=== PATIENT | female | born 1940 | race African-American/Black ===

== ENCOUNTER 2016-08-23 15:05 | Inpatient (IN) | payer MEDICARE, MEDICAID ==
[~2016-08-23] VITALS: Ht 162.6 cm; Wt 63.5 kg
[~2016-08-23 15:05] MED LIST: ACETAMINOPHEN500 M5 PO; DULCOLAX STOOL100 M1 PO; FENTANYL1 EAC4 TDERMAL; FENTANYL1 EACH TDERMAL; LASIX20 M1 ORAL; LEVOFLOXACIN500 MG ORAL; LISINOPRIL20 MG ORAL; METOPROLOL SUCC25 MG ORAL; NEURONTIN100 MG ORAL; OMEPRAZOLE20 M3 ORAL; PLAVIX75 MG ORAL; PROAIR HFA8.5 GM INH; PROCARDIA10 MG ORAL; PROMETHAZINE V240 ML ORAL; PROTONIX20 MG ORAL; PROTONIX40 MG ORAL; SIMVASTATIN20 MG ORAL; TRAMADOL HCL50 MG ORAL
[2016-08-23 16:00] VITALS: BP 148/68
[2016-08-23 16:48] LABS: BASOPHILS % (AUTO) 1.4 % (0.0-2.0); EOSINOPHILS % (AUTO) 2.3 % (0.0-3.0); LYMPHOCYTES % (AUTO) 25.6 % (20.0-45.0); MEAN CORPUSCULAR HEMOGLOBIN 31.6 PG (27.0-31.0); MEAN CORPUSCULAR HGB CONC 30.9 G/DL (32.0-36.0); MEAN CORPUSCULAR VOLUME 103 FL (80-99); MEAN PLATELET VOLUME 5.1 FL (6.5-10.1); MONOCYTES % (AUTO) 4.8 % (1.0-10.0); NEUTROPHILS % (AUTO) 65.9 % (45.0-75.0); PLATELET COUNT 357 K/UL (150-450); RED BLOOD COUNT 3.92 M/UL (4.20-5.40); RED CELL DISTRIBUTION WIDTH 13.3 % (11.6-14.8)
[2016-08-23 17:05] LABS: TROPONIN I < 0.30 ng/mL (<=0.30)
[2016-08-23 17:09] LABS: ALANINE AMINOTRANSFERASE 20 U/L (3-33); ALBUMIN/GLOBULIN RATIO 1.1 (1.0-2.7); ANION GAP 13 (5-15); ASPARTATE AMINO TRANSFERASE 25 U/L (5-40); CALCIUM 9.5 mg/dL (8.6-10.2); CARBON DIOXIDE 30 mEQ/L (20-30); CHLORIDE 100 mEQ/L (98-107); CREATININE 0.7 mg/dL (0.5-0.9); HEMOLYSIS 15; POTASSIUM 3.7 mEQ/L (3.4-4.9); SODIUM 143 mEQ/L (135-145); TOTAL PROTEIN 7.8 g/dL (6.6-8.7)
[2016-08-23 17:44] VITALS: BP 138/69
[2016-08-23 17:45] LABS: APPEARANCE,URINE SLIGHTLY CLOUDY; KETONES,URINE NEGATIVE (NEGATIVE); PH,URINE 6.5 (4.5-8.0); PROTEIN,URINE 1+ (NEGATIVE)
[2016-08-23 17:46] LABS: LEUKOCYTE ESTERASE ,URINE NEGATIVE (NEGATIVE); NITRITE,URINE NEGATIVE (NEGATIVE); UROBILINOGEN,URINE NORMAL MG/DL (0.0-1.0)
--- NOTE | 2016-08-23 17:47 | Emergency Room Report ---
History of Present Illness General Chief Complaint: Dizziness Source: Patient, Medical Record Present Illness HPI The patient is a 76-year-old female who presented after increased dizziness and generalized weakness. Patient had prior history of CVA in the past as well as prior syncopal episode. Patient's primary care physician is Dr. Emmanuel Finley. The patient had recently left her [facility] and is having difficulty caring for herself. Patient had been feeling generalized weakness. She had been feeling like she might pass out. Allergies: Coded Allergies: No Known Allergies (Unverified , 06/05/14) Patient History Past Medical History: see triage record Reviewed Nursing Documentation: PMH: Agreed, PSxH: Agreed Nursing Documentation-PMH Hx Cardiac Problems: Yes - high cholesterol; NM Hx Hypertension: Yes Hx COPD: Yes Hx Cancer: No Hx Gastrointestinal Problems: Yes - GERD Hx Neurological Problems: Yes Hx Cerebrovascular Accident: Yes - left side Review of Systems All Other Systems: negative except mentioned in HPI Physical Exam Vital Signs Date Time Temp Pulse Resp B/P Pulse Ox O2 Delivery O2 Flow Rate FiO2 08/23/16 15:19 98.2 91 16 149/80 97 Room Air General Appearance: alert, GCS 15, non-toxic, mild distress ENT: other - left tm foreign body Neck: full range of motion, supple Respiratory: chest non-tender, lungs clear, normal breath sounds, no rhonchi Cardiovascular #1: normal peripheral pulses, regular rate, rhythm, no edema Gastrointestinal: normal bowel sounds, non tender, soft, no mass Musculoskeletal: back normal, digits/nails normal Neurologic: normal inspection, alert, oriented x3, responsive, nurse staff industrial III-XII nml as tested, motor weakness - lower extremities bilateral weakn Skin: normal inspection, normal color, no rash Medical Decision Making Diagnostic Impression: Primary Impression: Episode of generalized weakness Additional Impression: Failure to thrive ER Course Patient presented for generalized weakness. Differential diagnosis included was not limited to anemia, urinary tract infection, electrolyte abnormality, hypothyroidism, myocardial infarction, myasthenia gravis, dehydration, among others. Because of complexity of patient's case laboratory testing and imaging studies were ordered. I EKG interpreted by me showed normal sinus rhythm with a rate of 78 with inferior T wave inversion.Laboratory studies showed normal white blood count. The patient noted be not anemic. Rhythm strip interpreted by me showed normal sinus rhythm with a rate in the 80s without PVCs or ectopy.The patient was discussed with Dr. Arroyo for Dr. Finley who is patients primary care physician. Labs Test 08/23/16 16:30 08/23/16 17:14 White Blood Count 10.0 K/UL (4.8-10.8) Red Blood Count 3.92 M/UL (4.20-5.40) Hemoglobin 12.4 G/DL (12.0-16.0) Hematocrit 40.2 % (37.0-47.0) Mean Corpuscular Volume 103 FL (80-99) Mean Corpuscular Hemoglobin 31.6 PG (27.0-31.0) Mean Corpuscular Hemoglobin Concent 30.9 G/DL (32.0-36.0) Red Cell Distribution Width 13.3 % (11.6-14.8) Platelet Count 357 K/UL (150-450) Mean Platelet Volume 5.1 FL (6.5-10.1) Neutrophils (%) (Auto) 65.9 % (45.0-75.0) Lymphocytes (%) (Auto) 25.6 % (20.0-45.0) Monocytes (%) (Auto) 4.8 % (1.0-10.0) Eosinophils (%) (Auto) 2.3 % (0.0-3.0) Basophils (%) (Auto) 1.4 % (0.0-2.0) Sodium Level 143 mEQ/L (135-145) Potassium Level 3.7 mEQ/L (3.4-4.9) Chloride Level 100 mEQ/L (98-107) Carbon Dioxide Level 30 mEQ/L (20-30) Anion Gap 13 (5-15) Blood Urea Nitrogen 17 mg/dL (7-23) Creatinine 0.7 mg/dL (0.5-0.9) Estimat Glomerular Filtration Rate mL/min (>60) Glucose Level 112 mg/dL (74-106) Calcium Level 9.5 mg/dL (8.6-10.2) Total Bilirubin < 0.2 mg/dL (0.0-1.2) Aspartate Amino Transf (AST/SGOT) 25 U/L (5-40) Alanine Aminotransferase (ALT/SGPT) 20 U/L (3-33) Alkaline Phosphatase 142 U/L (35-104) Troponin I < 0.30 ng/mL (<=0.30) Total Protein 7.8 g/dL (6.6-8.7) Albumin 4.2 g/dL (3.5-5.2) Globulin 3.6 g/dL Albumin/Globulin Ratio 1.1 (1.0-2.7) EKG Diagnostic Results Rate: normal Rhythm: NSR ST Segments: no acute changes Chest X-Ray Diagnostic Results EP Interpretation: Yes Findings: no consolidation, no effusion, no pneumothorax, no acute cardiopulmonary disease Number of Views: 1 Last Vital Signs Date Time Temp Pulse Resp B/P Pulse Ox O2 Delivery O2 Flow Rate FiO2 08/23/16 16:00 98.1 84 25 148/68 98 Room Air Disposition: ADMITTED INPATIENT Condition: Serious Referrals: EMMANUEL FINLEY (PCP) Santy Sánchez Aug 23, 2016 17:47
[2016-08-23 17:58] LABS: BACTERIA,URINE MODERATE /HPF; MUCUS,URINE MODERATE /LPF (NONE/OCC); SQUAMOUS EPITHELIAL CELL,UR MANY /LPF (NONE/OCC); WBC,URINE 0-2 /HPF (0 - 2)
[2016-08-23 20:13] VITALS: BP 143/71
[2016-08-23] MEDS ORDERED: Acetaminophen 500mg (ES) tab ORAL ONE (21:45)
[2016-08-23 23:01] VITALS: BP 138/74
[2016-08-24] VITALS (7 sets, daily range): BP systolic 121–154; BP diastolic 64–86
[2016-08-24] MEDS: Docusate 100mg cap ORAL SCH ×2 (08:24→17:57)
[2016-08-24] MEDS: Heparin 5000 units/ml inj SUBQ SCH ×2 (08:25→20:39)
--- NOTE | 2016-08-24 09:58 | Diagnostic Imaging Report ---
Indication: SOB Technique: One view of the chest Comparison: 04/29/2016 Findings: No acute infiltrates, effusions, or congestion. Tortuous calcified aorta. Normal heart size. Upper mediastinum unremarkable. There are severe degenerative changes of both shoulders again noted. No significant interim change Impression: No acute process.
[2016-08-24] MEDS: Acetaminophen 500mg (ES) tab ORAL PRN ×2 (13:11→20:35)
--- NOTE | 2016-08-24 19:36 | History & Physical ---
History and Physical History & Physicial Brief H&P: Impression: 1) Failure to thrive 2) DAMON post prandial;, R/O sinusitis, R/o post prandial hypoglycemia 3) COPD 4) Previous CVA Plan: Will admit Will get CT of sinuses Post p-randial accucheck Social work consult for NH placement PARTH BLAIR Aug 24, 2016 19:36
[2016-08-25] VITALS: BP 139/74
[2016-08-25] MEDS: Acetaminophen 500mg (ES) tab ORAL PRN ×2 (02:39→16:32)
[2016-08-25 04:00] VITALS: BP 135/74
[2016-08-25 08:20] VITALS: BP 125/80
[2016-08-25] MEDS: Docusate 100mg cap ORAL SCH ×2 (08:41→17:21)
[2016-08-25] MEDS: Heparin 5000 units/ml inj SUBQ SCH ×2 (08:42→20:27)
--- NOTE | 2016-08-25 10:25 | Diagnostic Imaging Report ---
Indications: PAIN Technique: Spiral images obtained through the maxillofacial sinuses. No IV contrast utilized. Multiplanar reconstructions were generated.Total dose length product 554 mGycm. CTDIvol(s) 28mGy Comparison: None Findings: There is near-complete opacification of the right sphenoid sinus. The left sphenoid sinus is clear. The maxillary, ethmoid, and frontal sinuses are clear. The maxillary ostia are patent. The nasal septum is midline. The bones are unremarkable. The patient is edentulous. A very sclerotic opacity within the right maxillary alveolar ridge probably represents the remnants of a tooth. No acute fractures. The orbits are unremarkable. The included intracranial structures are unremarkable. The retro-facial soft tissues are unremarkable. Impression: Right sphenoid sinus disease No other significant sinus disease demonstrated Patent maxillary ostia The CT scanner at [facility] is accredited by the [employer] and the scans are performed using protocols designed to limit radiation exposure to as low as reasonably achievable to attain images of sufficient resolution adequate for diagnostic evaluation.
[2016-08-25 11:19] VITALS: BP 142/83
[2016-08-25 16:00] VITALS: BP 142/70
[2016-08-25 20:00] VITALS: BP 126/72
--- NOTE | 2016-08-25 20:22 | Cardiology Report ---
APPROVED REPORT EKG Measurement Heart [id number] Normal sinus rhythm Normal ECG
--- NOTE | 2016-08-25 21:42 | General Progress Note ---
Assessment/Plan Assessment/Plan 1) R sphenoid sinusitis probably chronic 2) Failure to thrive,R/O PMR 3) Euvolemic Plan: Will start her on Flonase Check ESR PT +OT DC planning Subjective Allergies: Coded Allergies: No Known Allergies (Unverified , 06/05/14) Subjective She is found to have R sphenoid sinus opacification, no c/p or sob, feels better Objective Last 24 Hour Vital Signs Date Time Temp Pulse Resp B/P Pulse Ox O2 Delivery O2 Flow Rate FiO2 08/25/16 20:00 98.2 82 18 126/72 96 Room Air 08/25/16 16:00 98.1 80 16 142/70 99 Room Air 08/25/16 11:19 98.1 84 16 142/83 95 Room Air 08/25/16 08:20 97.9 79 16 125/80 95 Room Air 08/25/16 04:00 97.7 74 18 135/74 97 Room Air 08/25/16 00:00 98.8 83 18 139/74 97 Room Air Intake and Output 08/24/16 08/25/16 19:00 07:00 Intake Total 450 ml 480 ml Balance 450 ml 480 ml Intake Oral 450 ml 480 ml # Voids 3 3 Height (Feet): 5 Height (Inches): 4.00 Weight (Pounds): 140 General Appearance: WD/WN, no apparent distress, alert EENT: PERRL/EOMI Neck: non-tender, normal alignment, supple Cardiovascular: normal rate, regular rhythm Respiratory/Chest: lungs clear, normal breath sounds Abdomen: non tender, soft Extremities: normal range of motion Neurologic: office coordinator II-XII grossly normal, no motor/sensory deficits PARTH BLAIR Aug 25, 2016 21:42
[2016-08-26] VITALS: BP 122/63
[2016-08-26] MEDS: Acetaminophen 500mg (ES) tab ORAL PRN ×3 (00:29→17:35)
[2016-08-26 04:00] VITALS: BP 137/78
[2016-08-26 07:54] VITALS: BP 140/83
[2016-08-26] MEDS: Flonase Nasal Inhaler 16gm NASAL SCH ×2 (09:30→17:34)
[2016-08-26] MEDS: Docusate 100mg cap ORAL SCH ×2 (09:30→17:34)
[2016-08-26] MEDS: Heparin 5000 units/ml inj SUBQ SCH ×2 (09:35→22:08)
[2016-08-26 11:28] VITALS: BP 143/86
[2016-08-26 16:00] VITALS: BP 133/58
[2016-08-26 20:00] VITALS: BP_SYST 131
--- NOTE | 2016-08-26 23:34 | General Progress Note ---
Assessment/Plan Assessment/Plan 1) R sphenoid sinusitis probably chronic 2) Failure to thrive,R/O PMR 3) Euvolemic Plan: Continue her on Flonase DC to SNF in AM Subjective Allergies: Coded Allergies: No Known Allergies (Unverified , 06/05/14) Subjective She is sleeping comfortably, no distress Objective Last 24 Hour Vital Signs Date Time Temp Pulse Resp B/P Pulse Ox O2 Delivery O2 Flow Rate FiO2 08/26/16 20:00 98.9 74 19 131/ 94 Room Air 08/26/16 16:00 97.7 87 18 133/58 95 Room Air 08/26/16 11:28 98.0 83 20 143/86 96 Room Air 08/26/16 07:54 98.2 78 20 140/83 95 Room Air 08/26/16 04:00 97.9 83 18 137/78 98 Room Air 08/26/16 01:28 98.2 08/26/16 00:00 98.1 90 18 122/63 97 Room Air Intake and Output 08/25/16 08/26/16 19:00 07:00 Intake Total 900 ml 460 ml Output Total 100 ml 200 ml Balance 800 ml 260 ml Intake Oral 900 ml 460 ml Output Urine Total 100 ml 200 ml # Voids 1 1 # Bowel Movements 1 Laboratory Tests 08/26/16 06:15: Erythrocyte Sedimentation Rate 54H Height (Feet): 5 Height (Inches): 4.00 Weight (Pounds): 140 General Appearance: WD/WN, no apparent distress EENT: PERRL/EOMI Neck: non-tender, normal alignment Cardiovascular: regular rhythm Respiratory/Chest: lungs clear Abdomen: non tender, soft Extremities: normal range of motion Edema: trace edema Neurologic: administrative liaison II-XII grossly normal PARTH BLAIR Aug 26, 2016 23:34
[2016-08-27] VITALS: BP 140/88
[2016-08-27] MEDS: Acetaminophen 500mg (ES) tab ORAL PRN ×2 (00:39→08:21)
[2016-08-27 03:50] VITALS: BP 148/78
[2016-08-27] MEDS: Docusate 100mg cap ORAL SCH (08:10)
[2016-08-27] MEDS: Heparin 5000 units/ml inj SUBQ SCH (08:12)
[2016-08-27] MEDS: Flonase Nasal Inhaler 16gm NASAL SCH (08:21)
[2016-08-27 08:26] VITALS: BP 152/76
[2016-08-27] MEDS ORDERED: ATORVASTATIN CA10 MG ORAL (10:03)
[2016-08-27] MEDS ORDERED: FLUTICASONE PRO16 G1 NASAL (10:03)
[2016-08-27 12:05] VITALS: BP 130/69
[2016-08-27] MEDS ORDERED: Tubing IV Secondary IV ONE (13:39)
--- NOTE | 2016-08-27 14:35 | Discharge Summary ---
Discharge Summary Hospital Course Date of Admission Aug 23, 2016 at 16:51 Date of Discharge Aug 27, 2016 at 13:40 Admitting Diagnosis generalized weakness, cva HPI Angeli Kessler is a 76 year old female who was admitted on Aug 23, 2016 at 16: 51 for Generalized Weakness, Cerebral Vascular Attack Hospital Course [id number] Discharge Discharge Disposition Patient was discharged to SNF/Subacute Facility(03) Discharge Diagnoses: PARTH BLAIR Aug 27, 2016 14:35
--- NOTE | 2016-08-27 21:08 | History and Physical Report ---
DATE OF ADMISSION: 08/23/[address] Bowen. REASON FOR ADMISSION: Dizziness and failure to thrive. HISTORY OF PRESENT ILLNESS: This is a 76-year-old female with a previous history of CVA and prior episodes of syncopal episode, the patient of Dr. Bowen, that I am covering for apparently, was a resident of a [facility]. She came out of the [facility] and she is not able to take care of herself. She has been having generalized weakness and also feeling dizzy and it was decided to be admitted for observation and possible placement into the fpc. She is also reporting to me that she is having some postprandial headaches, which comes and goes. PAST MEDICAL HISTORY: Significant for prior CVA with dementia, hypertension, non-ST elevation myocardial infarction, and history of marijuana smoking. SOCIAL HISTORY: She used to be in a fpc, but apparently she took away from the fpc to go to [place] for vacation. Since she has come back, she is having trouble taking care of herself at home. No smoking. She used to be heavy smoker in the past, quit few years ago. No alcohol abuse at this point. She has smoked marijuana in the past. 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 She has three grown-up children, two of them out of state. MEDICATIONS: Prior to admission has been Tylenol, atorvastatin, gabapentin, omeprazole, and simvastatin. REVIEW OF SYSTEMS: She has mostly headache postprandial. Appetite has been good. Apparently, she is having trouble mobilizing and taking care of herself. No chest pain or shortness of breath. No nausea, vomiting, or diarrhea. Some degree of heartburn. No dysuria or hematuria. No fever or chills. PHYSICAL EXAMINATION: GENERAL: She does not seem to be in much acute distress, lying down in bed. VITAL SIGNS: Blood pressure is 123/65, pulse of 74, respirations 23, and temperature 98.5 degrees. HEENT: Head is atraumatic. Eyes, pupils reactive to light. No evidence of papilledema. Ear canals are clear. Tympanic membranes are intact. Nose, nares are patent without any nasal discharge. Throat without inflammation or exudate. She has some sinus point tenderness mostly in the frontal sinus area. NECK: Supple. Jugular venous distention is within normal limits. No cervical adenopathy. No thyromegaly. HEART: Regular rhythm. No gallop. LUNGS: Clear to auscultation. ABDOMEN: Soft. Bowel sounds positive. No hepatosplenomegaly. EXTREMITIES: Lower extremity shows no cyanosis or clubbing. NEUROLOGICAL: Cranial nerves are grossly intact. She has mild left-sided hemiparesis. LABORATORY DATA: Showing a WBC of 10, hemoglobin is 12.4, hematocrit 40.2, and platelets of 357,000. Sodium 143, potassium 3.7, chloride 100, carbon dioxide is 30,, BUN is 17, creatinine is 0.7, and glucose 112. Alkaline phosphatase 142. LFTs within normal range. Troponin less than 0.30. IMPRESSION: 1. Failure to thrive. 2. Headache, which seems to be postprandial, rule out sinusitis, rule out postprandial hypoglycemia. 3. Chronic obstructive pulmonary disease. 4. Previous cerebrovascular accident. PLAN: She is admitted. We will get a CT scan of the sinuses. Postprandial Accu-Cheks is going to be checked. soap worker consult for fpc placement. Mann Arroyo M.D. DR: DEBRA JOB#: [id number] CC:
--- NOTE | 2016-08-28 01:28 | Discharge Summary ---
DATE OF ADMISSION: 08/23/2016 DATE OF DISCHARGE: 08/27/2016 DIAGNOSIS OF DISCHARGE: 1. Failure to thrive. 2. Evidence of probable chronic sphenoid sinusitis. 3. Previous CVA and underlying dementia. 4. No signs of fluid overload or congestive heart failure. HISTORY AND PHYSICAL AND HOSPITAL COURSE: For details please refer to the History and Physical dictated in the chart. This is a very pleasant 76-year-old, female, patient of Dr. Pastor Bowen, that I am covering for, being brought to the emergency room of [facility] after she left the assisted and apparently, she is not able to take care of herself at home. She has been having some postprandial headaches, also has felt somewhat dizzy and weak for which she was admitted. Workup in the hospital included a CAT scan of the sinuses, which showed complete opacification of the right sphenoidal sinus and she has been complaining of also some nasal congestion. We started her on Flonase one puff in each nostril b.i.d. and with these measures, her headaches have improved. Social work consult was obtained and she was found to go to [facility] for further rehabilitation and possible stay over there. Dr. Pastor Bowen is going to see her over there and we will go from there. Mann Arroyo M.D. DR: ELOY JOB#: [id number] CC:
== END 2016-08-27 13:40 | DRG 641 ==
LOC: EMR 16:49 → 4E 16:51 → EDBEDREQ 08-24 01:48
DX: R62.7 Adult failure to thrive (principal); J44.9 Chronic obstructive pulmonary disease, unspecified; F01.50 Vascular dementia, unspecified severity, without behavioral disturbance, psychotic disturbance, mood disturbance, and anxiety; I10 Essential (primary) hypertension; K21.9 Gastro-esophageal reflux disease without esophagitis; I25.2 Old myocardial infarction; J32.3 Chronic sphenoidal sinusitis; I69.319 Unspecified symptoms and signs involving cognitive functions following cerebral infarction; R42 Dizziness and giddiness; Z87.891 Personal history of nicotine dependence; E78.00 Pure hypercholesterolemia, unspecified; R51 Headache
CPT/HCPCS: 36415; 70486; 71010; 80053; 81001; 82962; 82977; 84484; 85025; 85651; 87086; 93005

== ENCOUNTER 2017-02-08 12:41 | Outpatient (CLI) | payer MEDICARE, MEDICAID ==
[~2017-02-08 12:41] MED LIST changes: +ATORVASTATIN CA10 MG ORAL; +FLUTICASONE PRO16 G1 NASAL
== END 2017-02-08 14:41 | disposition home or self-care (01) ==
LOC: CAT 12:41
DX: H61.309 Acquired stenosis of external ear canal, unspecified, unspecified ear (principal)
CPT/HCPCS: 70480

== ENCOUNTER 2017-05-27 01:19 | Inpatient (IN) | payer MEDICARE, MEDICAID ==
[~2017-05-27] VITALS: Ht 165.1 cm; Wt 79.2 kg
[2017-05-27] VITALS (20 sets, daily range): BP systolic 90–173; BP diastolic 53–128
[2017-05-27] MEDS ORDERED: PEPCID20 MG ORAL (01:31)
[2017-05-27] MEDS ORDERED: COLACE100 MG ORAL (01:31)
[2017-05-27] MEDS ORDERED: ALBUTEROL2.5 MG/3 M INH (01:31)
[2017-05-27] MEDS ORDERED: MIRALAX17 G2 ORAL (01:31)
[2017-05-27] MEDS ORDERED: PRO-STAT LIQUID30 ML ORAL ×2 (01:31)
[2017-05-27] MEDS ORDERED: GABAPENTIN300 MG ORAL (01:31)
[2017-05-27] MEDS ORDERED: ASPIR 8181 MG ORAL (01:31)
[2017-05-27] MEDS ORDERED: METOPROLOL TART25 MG ORAL (01:31)
[2017-05-27] MEDS ORDERED: FUROSEMIDE40 MG ORAL (01:31)
[2017-05-27] MEDS ORDERED: PROAIR HFA8.5 GM INH (01:31)
[2017-05-27] MEDS ORDERED: KENALOG 0.5% CR15 GM APPLIC (01:31)
--- NOTE | 2017-05-27 01:40 | Emergency Room Report ---
History of Present Illness General Chief Complaint: Multiple Trauma/Fall Source: Patient Present Illness HPI [id number] sent from SNF for ?hitting head and LOC Not on ASA or AC on review of med list Noted with a lot of productive green moucous cough, history of COPD Noted tachypnea Denies fever/chills Denies weakness of extremities PMHx: COPD, previous CVA, previous [place], HTN, dementia Allergies: Coded Allergies: No Known Allergies (Unverified , 06/05/14) Patient History Past Medical History: other - see HPI Past Surgical History: none Pertinent Family History: none Social History: Denies: smoking, alcohol use, drug use Last Menstrual Period: NA Now: No Immunizations: UTD Reviewed Nursing Documentation: PMH: Agreed, PSxH: Agreed Nursing Documentation-PMH Hx Hypertension: Yes - subsequent non st elevation [place] Hx COPD: Yes Hx Cancer: No Hx Neurological Problems: Yes Hx Cerebrovascular Accident: Yes - hemiplegia, left dominant side. Review of Systems All Other Systems: negative except mentioned in HPI Physical Exam Vital Signs Date Time Temp Pulse Resp B/P (MAP) Pulse Ox O2 Delivery O2 Flow Rate FiO2 05/27/17 01:08 99.0 136 18 155/101 90 Room Air Sp02 EP Interpretation: reviewed, normal General Appearance: normal inspection, well appearing, no apparent distress, alert, GCS 15, non-toxic, other - Tachypnic Head: normocephalic, atraumatic Eyes: bilateral eye PERRL, bilateral eye EOMI ENT: normal ENT inspection, hearing grossly normal, normal voice Neck: normal inspection, full range of motion, supple, no bony tend Respiratory: normal inspection, lungs clear, normal breath sounds, no respiratory distress, no retraction, accessory muscle use, speaking full sentences, wheezing Cardiovascular #1: regular rate, rhythm, no edema Gastrointestinal: normal inspection, normal bowel sounds, non tender, soft, no guarding, no hernia Genitourinary: no CVA tenderness Musculoskeletal: normal inspection, back normal, normal range of motion, Shazia' s Sign negative Neurologic: normal inspection, alert, oriented x3, responsive, fitness and wellness instructor III-XII nml as tested, motor strength/tone normal, speech normal Psychiatric: normal inspection, judgement/insight normal, mood/affect normal Skin: normal inspection, normal color, no rash Procedures Critical Care Time Critical Care Time CC time 45 minutes New onset Atrial Fib with RVR CC time included dosing of anti-arrythmic, deciding on medical vs electrical cardioversion, review of serial ECGs, review of EMR, review of labs, discussion with admitting physician Included multiple bedside reassessment, assessment for acute CHF and ischemic type chest pain Could include additional dose of medication, d/w dental cream maker Medical Decision Making Medicare Attestation I Gris Grayson MD hereby attest that the medical record entry for date of service, 05/27/17 accurately reflects signatures/notations that I made in my capacity as MD when I treated/diagnosed the above listed Medicare beneficiary. I attest that this information is true, accurate and complete to the best of my knowledge. I understand that any falsification, omission, or concealment of material fact may subject me to administrative, civil, or criminal liability. This patient warrants hospital admission for extreme of age and has a condition that cannot be treated as outpatient. Diagnostic Impression: Primary Impression: Fall Qualified Codes: W19.XXXA - Unspecified fall, initial encounter Additional Impressions: Head contusion Qualified Codes: S00.93XA - Contusion of unspecified part of head, initial encounter COPD exacerbation Atrial fibrillation with rapid ventricular response Non-STEMI (non-ST elevated myocardial infarction) ER Course VS with initial tachycardia No open wound or lac to head CT head negative for ICH, skull fx No focal neuro deficits Not on ASA, AC COPD exacerbation Noted to be tachypnic, tachycardic and wheezing with accessory muscle use on exam Tx for COPD exac with albuterol, azithro, steroids Required BIPAP as noted to be tachypnic despite nebs, steroids CXR negative for lobar PNA and afebrile however leuks 12k Blood Cx pending Given Empiric Abx ?new onset Atrial fibrillation Patient went into Atrial fib with RVR to 140s in ED - no chest pain, no acute CHF. Stable BP No known Atrial Fib on review of paperwork from SNF and EMR Was given 15mg Cardizem IV in ED with improvement in HR to <100 Repeat ECG shows Atrial fib, rate-controlled Troponin elevated - ruled in for NSTEMI as possible cause of new onset Atrial Fib ASA given, heparin bolus and gtt started in ED Was also given PO Cardizem Possible etiologies are multifactorial and include known COPD, COPD exacerbation or PNA, NSTEMI Admit to Dr Bowen at 4am SUSAN admission EKG Diagnostic Results Rate: tachycardiac Rhythm: other - Atrial fib ST Segments: no acute changes Rhythm Strip Diag. Results EP Interpretation: yes Rate: 144 Rhythm: other - Atrial fib with RVR, +PVC Chest X-Ray Diagnostic Results Chest X-Ray Diagnostic Results : Chest X-Ray Ordered: Yes # of Views/Limited/Complete: 1 View Indication: Shortness of Breath EP Interpretation: Yes Interpretation: no consolidation, no effusion, no pneumothorax, no acute cardiopulmonary disease Impression: No acute disease Electronically Signed by: Dr Gris Grayson MD Last Vital Signs Date Time Temp Pulse Resp B/P (MAP) Pulse Ox O2 Delivery O2 Flow Rate FiO2 05/27/17 01:08 99.0 136 18 155/101 90 Room Air Status: improved Disposition: ADMITTED INPATIENT Condition: Critical GRIS GRAYSON M.D. May 27, 2017 01:39
[2017-05-27] MEDS ORDERED: Albuterol ud Inhalation HHN ONE (02:00)
[2017-05-27] MEDS ORDERED: dilTIAZem HCl 25mg/5ml Inj IVP ONE ×2 (03:00→04:45)
[2017-05-27] MEDS ORDERED: dilTIAZem HCl CD 120mg cap ORAL ONE (03:15)
[2017-05-27 03:21] LABS: BASOPHILS % (AUTO) 1.1 % (0.0-2.0); EOSINOPHILS % (AUTO) 0.1 % (0.0-3.0); LYMPHOCYTES % (AUTO) 12.7 % (20.0-45.0); MEAN CORPUSCULAR HEMOGLOBIN 30.9 PG (27.0-31.0); MEAN CORPUSCULAR HGB CONC 28.1 G/DL (32.0-36.0); MEAN CORPUSCULAR VOLUME 110 FL (80-99); MEAN PLATELET VOLUME 5.1 FL (6.5-10.1); NEUTROPHILS % (AUTO) 78.1 % (45.0-75.0); PLATELET COUNT 321 K/UL (150-450); RED BLOOD COUNT 3.47 M/UL (4.20-5.40); RED CELL DISTRIBUTION WIDTH 14.1 % (11.6-14.8); WHITE BLOOD COUNT 12.2 K/UL (4.8-10.8)
[2017-05-27 03:34] LABS: ALANINE AMINOTRANSFERASE 25 U/L (12-78); ALBUMIN/GLOBULIN RATIO 0.7 (1.0-2.7); ANION GAP 7 mmol/L (5-15); ASPARTATE AMINO TRANSFERASE 22 U/L (15-37); CALCIUM 9.4 MG/DL (8.5-10.1); CARBON DIOXIDE 37 MMOL/L (21-32); CHLORIDE 103 MMOL/L (98-107); CREATININE 0.8 MG/DL (0.55-1.30); POTASSIUM 3.8 MMOL/L (3.5-5.1); SODIUM 147 MMOL/L (136-145)
[2017-05-27] MEDS ORDERED: Solu-MEDROL 125mg Inj IVP ONE (03:45)
[2017-05-27] MEDS ORDERED: Azithromycin 500 MG in D5W 275 ML IVPB ONE (03:45)
[2017-05-27] MEDS ORDERED: cefTRIAXone 2 GM in NS 110 ML IVPB ONE (03:45)
[2017-05-27] MEDS ORDERED: Heparin 25,000u/D5W 500ml 500 ML IV SCH (04:00)
[2017-05-27] MEDS ORDERED: Heparin 5000 units/ml inj IV ONE (04:00)
[2017-05-27] MEDS ORDERED: Azithromycin 500mg Inj IV ONE (04:08)
[2017-05-27] MEDS ORDERED: Ipratropium 0.02% Inh Soln 2.5ml UD HHN PRN (05:45)
[2017-05-27] MEDS ORDERED: Milk of Magnesia 30ml Ud ORAL PRN (05:45)
[2017-05-27] MEDS ORDERED: Acetaminophen 500mg (ES) tab ORAL PRN (05:45)
[2017-05-27] MEDS: dilTIAZem HCl 60mg tab ORAL SCH ×3 (07:55→21:02)
[2017-05-27] MEDS ORDERED: Spironolactone 25mg tab ORAL SCH (09:00)
[2017-05-27] MEDS ORDERED: Enoxaparin Sodium 300mg/3ml vial SUBQ SCH (09:00)
[2017-05-27] MEDS ORDERED: Aspirin Baby 81mg ORAL SCH (09:00)
[2017-05-27] MEDS ORDERED: Metoprolol 25mg tab ORAL SCH (09:00)
[2017-05-27] MEDS: Docusate 100mg cap ORAL SCH ×2 (09:26→17:39)
[2017-05-27] MEDS: Solu-MEDROL 40mg Inj IVP SCH ×2 (09:26→21:00)
[2017-05-27] MEDS: Metoprolol 25mg tab ORAL SCH ×2 (09:27→21:02)
[2017-05-27 09:34] LABS: MEAN CORPUSCULAR HEMOGLOBIN 30.6 PG (27.0-31.0); MEAN CORPUSCULAR HGB CONC 27.2 G/DL (32.0-36.0); MEAN CORPUSCULAR VOLUME 113 FL (80-99); MEAN PLATELET VOLUME 5.3 FL (6.5-10.1); PLATELET COUNT 286 K/UL (150-450); RED CELL DISTRIBUTION WIDTH 14.1 % (11.6-14.8); WHITE BLOOD COUNT 10.8 K/UL (4.8-10.8)
[2017-05-27 09:57] LABS: ALANINE AMINOTRANSFERASE 20 U/L (12-78); ANION GAP 4 mmol/L (5-15); CALCIUM 9.2 MG/DL (8.5-10.1); CARBON DIOXIDE 39 MMOL/L (21-32); CHLORIDE 102 MMOL/L (98-107); CREATININE 0.8 MG/DL (0.55-1.30); POTASSIUM 3.9 MMOL/L (3.5-5.1); SODIUM 145 MMOL/L (136-145)
[2017-05-27] MEDS: Enoxaparin Sodium 300mg/3ml vial SUBQ SCH ×2 (10:00→21:01)
[2017-05-27] MEDS ORDERED: cefTRIAXone 1gm/D5W 55ml IVPB SCH ×2 (10:00)
[2017-05-27 10:24] LABS: ASPARTATE AMINO TRANSFERASE 22 U/L (15-37)
[2017-05-27 11:14] LABS: FERRITIN 28 NG/ML (8-388); THYROID STIMULATING HORMONE 0.136 uiU/mL (0.360-3.740); TOTAL PROTEIN 7.6 G/DL (6.4-8.2)
[2017-05-27 11:40] LABS: BAND NEUTROPHILS % (MANUAL) 0 % (0-8); BASOPHILS % (MANUAL) 2 % (0-2); EOSINOPHILS % (MANUAL) 0 % (0-3); HYPOCHROMASIA 2+; LYMPHOCYTES % (MANUAL) 6 % (20-45); MACROCYTES 2+; NEUTROPHILS % (MANUAL) 91 % (45-75); PLATELET ESTIMATE ADEQUATE; PLATELET MORPHOLOGY NORMAL; TOTAL CELLS COUNTED 100
--- NOTE | 2017-05-27 12:12 | Diagnostic Imaging Report ---
Indication: Dyspnea Comparison: 08/23/16 A single view chest radiograph was obtained. Findings: Interstitial opacities and prominent vascularity and heart size are demonstrated on the current study. Bones are osteopenic. Mediastinum appears prominent superiorly likely vascular pedicle, sign of volume overload. Impression: CHF/interstitial edema
--- NOTE | 2017-05-27 15:45 | History and Physical Report ---
DATE OF ADMISSION: 05/27/2017 CHIEF COMPLAINT AND REASON FOR HOSPITALIZATION: The patient admitted with cough, wheezing, atrial fibrillation, and ground-level fall. HISTORY OF PRESENT ILLNESS: The patient is 77-year-old lady, who is a resident of an [facility]. She is only a fair historian. Apparently, she was sent to the hospital after a ground-level fall and verbal report is that a CT brain in the emergency room was negative. The patient was found to have atrial fibrillation with rapid ventricular response and bronchospasm and started on treatment for the above. There is a history of COPD secondary to cigarette smoking and I believe she has had atrial fibrillation in the past. I will need to recheck her notes. The patient also has a history of prior CVA, leg edema without any evidence of CHF on chest x-ray, hyperlipidemia, osteoarthritis, and gait disorder. PAST SURGICAL HISTORY: Carotid endarterectomy. ALLERGIES: None known. MEDICATIONS: Medications at the [facility], [facility] as follows. Tylenol 1000 mg t.i.d., albuterol inhalation q.4 h. while awake, aspirin 81 mg daily, atorvastatin 10 mg daily, Colace 100 mg b.i.d., gabapentin 300 mg b.i.d., Lasix 40 mg on Wednesday and Wednesday afternoon and 40 mg everyday in the morning, metoprolol 12.5 mg two times a day, MiraLAX 17 g every 6 hours p.r.n., multivitamin one daily, Pepcid 20 mg daily, Pro-Stat 30 mL daily, and ProAir inhaler p.r.n. HABITS: She has been a cigarette smoker most of her adult life, quit recently in the last few years when she moved to an [facility]. Denies heavy alcohol. SYSTEM REVIEW: HEAD, EYES, EARS, NOSE, AND THROAT: There is mild diminished hearing. Vision is good. ENDOCRINE: No known diabetes or thyroid disease. PULMONARY: History of COPD as above and prior episodes of bronchospasms. CARDIAC: History of hypertension. There is a question of [facility] in April 2016 with a mild troponin leak on that admission. GASTROINTESTINAL: She has had intermittent vague abdominal discomfort and gastritis. No GI bleeding. GENITOURINARY: She is incontinent of the urine. NEUROLOGIC: History of a CVA and cognitive impairment. HEMATOLOGIC/ONCOLOGIC: History of anemia. PHYSICAL EXAMINATION: GENERAL: The patient is an alert lady, lying in bed, seen in the ICU. VITAL SIGNS: Temperature 99, pulse 98, blood pressure 133/86, and O2 saturation 96% on 2 liters. HEAD, EYES, EARS, NOSE, AND THROAT: Sclerae are nonicteric. Ocular motions intact in all directions. Oral mucosa is moist. NECK: No adenopathy. LUNGS: Few faint rhonchi at this time. HEART: Rhythm is atrial fibrillation. Normal S1 and S2. I hear no murmur. ABDOMEN: Soft without organomegaly or masses. EXTREMITIES: Trace edema. Degenerative changes in the knees. NEUROLOGIC: She is alert and responsive. She is mild dysarthric. She is disoriented to the date, but knows her name and place of and that she is in the hospital. Ocular motions are intact in all directions. There is a subtle facial asymmetry. Debug Technician is weak, 4/5 bilaterally. She moves all extremities. LABORATORY DATA: Pertinent labs show white count of 12.2 and hemoglobin is 10.7. Sodium 147, potassium is 3.8, BUN 16, creatinine 0.8, and glucose 132. Troponin 0.143. Imaging is not available at this time. I will need to recheck. IMPRESSION: 1. Status post ground-level fall, no injury. 2. Chronic obstructive pulmonary disease with acute exacerbation. 3. Atrial fibrillation with rapid ventricular response. 4. Troponin leak, possibly demand ischemia, possible acute non-ST elevation myocardial infarction. 5. History of chronic leg edema with negative chest x-rays in the recent past. 6. History of prior cigarette smoking. 7. History of cerebrovascular accident with cognitive impairment. 8. Osteoarthritis. 9. Gait disorder. 10. Anemia. PLAN: The patient will be watched in the ICU. She has been placed on anticoagulants, on low-dose metoprolol plus Cardizem, diuretics, pulmonary care. In view of her age and comorbidities, she is a high risk patient. Pastor Boewn M.D. DR: MINA JOB#: [id number] CC:
--- NOTE | 2017-05-27 16:02 | Consultation ---
Consult Note Consult Note pulm consult dict agree w orders GRIS JEFFERY May 27, 2017 16:02
--- NOTE | 2017-05-27 22:15 | Consultation ---
DATE OF CONSULTATION: 05/27/2017 PULMONARY CONSULTATION CONSULTING PHYSICIAN: Gris Feng M.D. ATTENDING PHYSICIAN: Pastor Bowen M.D. CHIEF COMPLAINT: The patient is seen for chronic obstructive pulmonary disease exacerbation. HISTORY OF PRESENT ILLNESS: This 77-year-old woman was [facility] because of [facility] level fall. She was evaluated in the emergency department and CT scan showed no signs of intracranial injury. However, she was noted to have rapid atrial fibrillation and wheezing and admission was arranged. Troponin was mildly elevated. The patient is a poor historian. PAST MEDICAL HISTORY: Carotid endarterectomy, COPD, atrial fibrillation, hyperlipidemia, osteoarthritis, and peripheral edema. ALLERGIES: None. MEDICATIONS: Reviewed. REVIEW OF SYSTEMS: Cannot be obtained. PHYSICAL EXAMINATION: GENERAL: The patient is alert. She is overweight. She is not in distress. VITAL SIGNS: Show normal findings at this time, but earlier her heart rate was rapid with atrial fibrillation. SKIN: Warm and dry. HEENT: The head is normocephalic. NECK: Shows no jugular venous distention. CHEST: Has mild wheezing. CARDIAC: Rhythm is irregular. ABDOMEN: Soft and nontender. Liver and spleen not enlarged. EXTREMITIES: No clubbing or cyanosis. A 2+ edema is noted. NEUROLOGIC: She has right-sided weakness and mild aphasia. LABORATORY DATA: Laboratory studies are reviewed. There is mild anemia. The white count is 12,000. Chemistry shows mildly elevated blood sugar and troponin. Natriuretic peptide is 9000. IMPRESSION: 1. Chronic obstructive pulmonary disease exacerbation. 2. Ground level fall without intracranial injury. 3. Non-ST segment elevation myocardial infarction. 4. Probable congestive heart failure with elevated natriuretic peptide and interstitial edema on chest x-ray. 5. Probable history of stroke. 6. Hypertension. PLAN: The patient will be treated with nebulized bronchodilators and steroids. We will withhold to see what she did here. We will give appropriate antibiotics. Cardiology has seen the patient and diuretics were ordered. Gris Feng M.D. DR: TOBIN JOB#: [id number] CC: Pastor Bowen M.D.; Fax#: [phone] GRIS FENG M.D. ; FAX#: [phone]
[2017-05-28] VITALS (13 sets, daily range): BP systolic 76–125; BP diastolic 41–80
--- NOTE | 2017-05-28 01:15 | Consultation ---
DATE OF CONSULTATION: 05/27/2017 CARDIOLOGY CONSULTATION REQUESTING PHYSICIAN: Pastor Bowen M.D. REASON FOR CONSULTATION: Atrial fibrillation with rapid ventricular response. HISTORY OF PRESENT ILLNESS: This is a 77-year-old female, who [facility] a [facility]. She has multiple medical problems including cerebrovascular disease with dementia. She has had several days of productive green sputum and cough with increasing difficulty with breathing. She apparently has taken several falls over the past days and may have lost consciousness after hitting her head. Upon arrival to the emergency room, a CT scan of the brain was obtained revealing no acute process or bleed. The patient had an EKG revealing atrial fibrillation with rapid ventricular response. She was notably short of breath and congested with wheezing. PAST MEDICAL HISTORY: Includes cerebrovascular disease, history of carotid endarterectomy, hypertensive heart disease, history of cerebrovascular accident, chronic venous insufficiency, hyperlipidemia, osteoarthritis, COPD, and degenerative disk disease. ALLERGIES: None known. FAMILY HISTORY: Noncontributory. SOCIAL HISTORY: Active smoker with greater than 50 pack years. No alcohol or substance abuse. MEDICATIONS: Prior to admission, reviewed and reconciled. REVIEW OF SYSTEMS: Not obtainable reliably from the patient. However, review of the records from prior hospital stay here is notable for hospitalization in 04/2016 with mild troponin leak and cardiac rhythm revealing sinus with frequent atrial ectopy. She had hypertension. She had normal ejection fraction on echocardiogram at that time and no other cardiovascular compromise. PHYSICAL EXAMINATION: VITAL SIGNS: Blood pressure 133/86, pulse 98, respiratory rate 20, and temperature 99. HEENT: Normocephalic and atraumatic. Conjunctivae pink. Sclerae are anicteric. Oropharynx clear. Mucous membranes moist. NECK: Supple. Jugular venous pressure is slightly elevated. LUNGS: With coarse rhonchi and few wheezes. CARDIAC: Irregularly irregular. Normal S1 and S2. A 1/6 systolic murmur at apex. ABDOMEN: Soft and nontender. EXTREMITIES: Good pulses with trace edema and degenerative changes of the large joint. LABORATORY AND DIAGNOSTIC DATA: Troponin is 0.143. White count 12.2 and hemoglobin 10.7. Repeat troponin is 0.103. Pro-natriuretic peptide 9261. Albumin 3.1. Potassium 3.9. B12 normal. TSH 0.136. EKG, atrial fibrillation with nonspecific ST-T wave changes. IMPRESSION: 1. Recurrent falls. 2. Paroxysmal atrial fibrillation with rapid ventricular response, now rate controlled. 3. Hypertensive cardiomyopathy. 4. Cerebrovascular disease with history of cerebrovascular accident and prior endarterectomy. 5. Acute on chronic diastolic congestive heart failure. 6. Mild protein-calorie malnutrition. 7. Acute myocardial ischemia with mildly elevated troponin level. 8. Type 2 diabetes mellitus with mild hyperglycemia. PLAN: 1. Cardiac monitoring. 2. Full anticoagulation for cardioembolic prophylaxis. 3. Low-dose aspirin. 4. Repeat echocardiogram. 5. Titrate diltiazem and metoprolol for rate control. 6. Observe for hemodynamically significant tachy or tracee arrhythmias. 7. Check lipid parameters. 8. Prior to discharge, we will need to address risk, benefit of long-term anticoagulation in this clinical setting. 9. Trend natriuretic peptide essay. Jan Moreno M.D. DR: YUNG JOB#: [id number] CC:
[2017-05-28] MEDS ORDERED: cefTRIAXone 1gm/D5W 55ml IVPB SCH ×2 (03:00)
[2017-05-28 05:40] LABS: MEAN CORPUSCULAR HEMOGLOBIN 30.9 PG (27.0-31.0); MEAN CORPUSCULAR HGB CONC 27.1 G/DL (32.0-36.0); MEAN CORPUSCULAR VOLUME 114 FL (80-99); MEAN PLATELET VOLUME 5.6 FL (6.5-10.1); PLATELET COUNT 275 K/UL (150-450); RED BLOOD COUNT 2.99 M/UL (4.20-5.40); RED CELL DISTRIBUTION WIDTH 14.4 % (11.6-14.8); WHITE BLOOD COUNT 10.9 K/UL (4.8-10.8)
[2017-05-28] MEDS: dilTIAZem HCl 60mg tab ORAL SCH ×3 (06:00→22:00)
[2017-05-28 06:03] LABS: ANION GAP 6 mmol/L (5-15); CALCIUM 8.7 MG/DL (8.5-10.1); CARBON DIOXIDE 35 MMOL/L (21-32); CHLORIDE 103 MMOL/L (98-107); CREATININE 2.6 MG/DL (0.55-1.30); POTASSIUM 5.7 MMOL/L (3.5-5.1); SODIUM 144 MMOL/L (136-145)
[2017-05-28 06:14] LABS: IRON 24 ug/dL (50-175); TOTAL IRON BINDING CAPACITY 295 ug/dL (250-450)
[2017-05-28 06:17] LABS: CHOLESTEROL 82 MG/DL (< 200); CHOLESTEROL/HDL RATIO 1.8 (3.3-4.4); MAGNESIUM 1.9 MG/DL (1.8-2.4)
[2017-05-28] MEDS ORDERED: Sodium Chloride 500ML 500 ML IV STA (07:10)
--- NOTE | 2017-05-28 07:40 | General Progress Note ---
Assessment/Plan Problem List: (1) Hyperkalemia ICD Codes: E87.5 - Hyperkalemia SNOMED: 29443602 (2) SITA (acute kidney injury) ICD Codes: N17.9 - Acute kidney failure, unspecified SNOMED: 75746440 (3) Non-STEMI (non-ST elevated myocardial infarction) ICD Codes: I21.4 - Non-ST elevation (NSTEMI) myocardial infarction SNOMED: 377629609 (4) COPD exacerbation ICD Codes: J44.1 - Chronic obstructive pulmonary disease with (acute) exacerbation SNOMED: 518837191664233 (5) Atrial fibrillation with rapid ventricular response ICD Codes: I48.91 - Unspecified atrial fibrillation SNOMED: 051501434071353 (6) Fall ICD Codes: W19.XXXA - Unspecified fall, initial encounter SNOMED: 8218281, 345410744 Qualifiers: Qualified Codes: W19.XXXA - Unspecified fall, initial encounter (7) Hypotension ICD Codes: I95.9 - Hypotension, unspecified SNOMED: 18818562 (8) Failure to thrive ICD Codes: R62.51 - Failure to thrive SNOMED: 23873549 Assessment/Plan low bp and sita, fluid challenge given, place hicks, stop kcl, aldactone, lasix for now. Possible dysphagia ST eval. continue steroids, hhn Subjective ROS Limited/Unobtainable: Yes Allergies: Coded Allergies: No Known Allergies (Unverified , 06/05/14) Objective Last 24 Hour Vital Signs Date Time Temp Pulse Resp B/P (MAP) Pulse Ox O2 Delivery O2 Flow Rate FiO2 05/28/17 06:40 60 76/53 05/28/17 06:20 97.2 62 28 82/57 96 Nasal Cannula 2.0 05/28/17 06:00 58 98/44 05/28/17 05:50 62 26 98/42 98 Nasal Cannula 2.0 05/28/17 05:00 60 28 82/48 100 Nasal Cannula 2.0 05/28/17 04:00 97.9 62 33 83/41 98 Nasal Cannula 2.0 05/28/17 04:00 59 05/28/17 03:00 59 28 82/46 100 Nasal Cannula 2.0 05/28/17 02:00 56 21 96/51 100 Nasal Cannula 2.0 05/28/17 01:00 53 21 98/55 100 Nasal Cannula 2.0 05/28/17 00:00 59 05/28/17 00:00 98.3 60 33 89/53 98 Nasal Cannula 2.0 05/27/17 23:00 66 22 105/59 99 Nasal Cannula 2.0 05/27/17 22:00 66 33 95/54 99 Nasal Cannula 2.0 05/27/17 21:02 66 115/60 05/27/17 21:02 66 115/60 05/27/17 21:00 66 33 125/77 99 Nasal Cannula 2.0 05/27/17 20:00 66 05/27/17 20:00 99.0 66 33 115/60 98 Nasal Cannula 2.0 05/27/17 19:18 Nasal Cannula 2.0 28 05/27/17 19:18 100 Nasal Cannula 2.0 28 05/27/17 19:18 66 24 Nasal Cannula 2.0 28 05/27/17 19:00 66 32 114/62 99 Nasal Cannula 2.0 05/27/17 18:00 66 30 124/58 97 Nasal Cannula 2.0 05/27/17 17:00 62 28 101/53 98 Nasal Cannula 2.0 05/27/17 16:00 64 05/27/17 16:00 98.4 63 32 113/60 98 Nasal Cannula 2.0 05/27/17 15:00 82 25 111/59 99 Nasal Cannula 2.0 05/27/17 14:00 67 25 90/58 100 Nasal Cannula 2.0 05/27/17 13:00 64 31 102/72 100 Nasal Cannula 2.0 05/27/17 12:00 98.6 78 30 103/65 100 Nasal Cannula 2.0 05/27/17 12:00 69 05/27/17 12:00 74 103/55 05/27/17 11:00 67 21 95/54 100 Nasal Cannula 2.0 05/27/17 10:00 71 22 118/74 100 Nasal Cannula 2.0 05/27/17 09:27 87 111/69 05/27/17 09:00 76 20 111/56 98 Nasal Cannula 2.0 05/27/17 08:30 85 05/27/17 08:30 98.4 85 22 124/70 98 Nasal Cannula 2.0 11/9/17 08:15 97 25 133/86 100 Nasal Cannula 2.0 05/27/17 08:00 97 25 133/86 93 Nasal Cannula 2.0 05/27/17 07:55 98 133/86 05/27/17 07:46 96 Nasal Cannula 2.0 28 05/27/17 07:43 104 26 96 Laboratory Tests 05/27/17 08:50: White Blood Count 10.8, Red Blood Count 3.00L, Hemoglobin 9.2L, Hematocrit 33.8L , Mean Corpuscular Volume 113H, Mean Corpuscular Hemoglobin 30.6, Mean Corpuscular Hemoglobin Concent 27.2L, Red Cell Distribution Width 14.1, Platelet Count 286, Mean Platelet Volume 5.3L, Neutrophils (%) (Auto) , Lymphocytes (%) (Auto) , Monocytes (%) (Auto) , Eosinophils (%) (Auto) , Basophils (%) (Auto) , Differential Total Cells Counted 100, Neutrophils % ( Manual) 91H, Lymphocytes % (Manual) 6L, Monocytes % (Manual) 1, Eosinophils % ( Manual) 0, Basophils % (Manual) 2, Band Neutrophils 0, Platelet Estimate Adequate, Platelet Morphology Normal, Hypochromasia 2+, Macrocytosis 2+, Sodium Level 145, Potassium Level 3.9, Chloride Level 102, Carbon Dioxide Level 39H, Anion Gap 4L, Blood Urea Nitrogen 15, Creatinine 0.8, Estimat Glomerular Filtration Rate , Glucose Level 150H, Calcium Level 9.2, Ferritin 28, Total Bilirubin 0.3, Aspartate Amino Transf (AST/SGOT) 22, Alanine Aminotransferase ( ALT/SGPT) 20, Alkaline Phosphatase 101, Troponin I 0.103H, Pro-B-Type Natriuretic Peptide 9261H, Total Protein 7.6, Total Protein (PEP) [Pending], Albumin 3.1L, Albumin (PEP) [Pending], Globulin 4.5, Globulin (PEP) [Pending], Albumin/Globulin Ratio [Pending], Jzesl-[id number] [Pending], Alpha-2- Globulins [Pending], Beta Globulins [Pending], Beta Gamma Globulin [Pending], PEP Abnormal Protein Bands [Pending], Protein Electrophoresis Interpret [Pending ], Vitamin B12 Level 1433H, Thyroid Stimulating Hormone (TSH) 0.136L 05/28/17 03:30: Stool Occult Blood [Pending] 05/28/17 04:30: White Blood Count 10.9H, Red Blood Count 2.99L, Hemoglobin 9.2L, Hematocrit 34.1L, Mean Corpuscular Volume 114H, Mean Corpuscular Hemoglobin 30.9, Mean Corpuscular Hemoglobin Concent 27.1L, Red Cell Distribution Width 14.4, Platelet Count 275, Mean Platelet Volume 5.6L, Neutrophils (%) (Auto) , Lymphocytes (%) (Auto) , Monocytes (%) (Auto) , Eosinophils (%) (Auto) , Basophils (%) (Auto) , Neutrophils % (Manual) [Pending], Lymphocytes % (Manual) [Pending], Platelet Estimate [Pending], Platelet Morphology [Pending], Sodium Level 144, Potassium Level 5.7H, Chloride Level 103, Carbon Dioxide Level 35H, Anion Gap 6, Blood Urea Nitrogen 32H, Creatinine 2.6#H, Estimat Glomerular Filtration Rate , Glucose Level 167H, Calcium Level 8.7, Magnesium Level 1.9, Iron Level 24L, Total Iron Binding Capacity 295, Percent Iron Saturation 8L, Unsaturated Iron Binding 271, Triglycerides Level 35, Cholesterol Level 82, LDL Cholesterol 32, HDL Cholesterol 46, Cholesterol/HDL Ratio 1.8L Height (Feet): 5 Height (Inches): 5.00 Weight (Pounds): 170 General Appearance: confused EENT: normal ENT inspection Neck: normal alignment Cardiovascular: regularly irregular Respiratory/Chest: lungs clear Abdomen: non tender, soft Edema: trace edema Neurologic: disoriented, other - facial asymmetry EMMANUEL FINLEY May 28, 2017 07:40
[2017-05-28 08:39] LABS: BAND NEUTROPHILS % (MANUAL) 0 % (0-8); BASOPHILS % (MANUAL) 0 % (0-2); EOSINOPHILS % (MANUAL) 0 % (0-3); LYMPHOCYTES % (MANUAL) 9 % (20-45); NEUTROPHILS % (MANUAL) 88 % (45-75); PLATELET ESTIMATE ADEQUATE; PLATELET MORPHOLOGY NORMAL; TOTAL CELLS COUNTED 100
[2017-05-28] MEDS: Solu-MEDROL 40mg Inj IVP SCH ×2 (08:49→22:19)
[2017-05-28] MEDS: Aspirin Baby 81mg ORAL SCH (08:50)
[2017-05-28] MEDS: Azithromycin 250mg tab ORAL SCH (08:50)
[2017-05-28] MEDS: Metoprolol 25mg tab ORAL SCH ×2 (08:50→22:19)
[2017-05-28] MEDS: Docusate 100mg cap ORAL SCH ×2 (08:50→18:07)
[2017-05-28] MEDS ORDERED: Spironolactone 25mg tab ORAL SCH (09:00)
[2017-05-28] MEDS ORDERED: Azithromycin 250mg tab ORAL SCH (09:00)
[2017-05-28] MEDS ORDERED: Ipratropium 0.02% Inh Soln 2.5ml UD HHN PRN (09:45)
[2017-05-28] MEDS ORDERED: Enoxaparin Sodium 300mg/3ml vial SUBQ SCH (10:00)
--- NOTE | 2017-05-28 10:23 | Pulmonology Progress Note ---
Assessment/Plan Assessment/Plan 1. Chronic obstructive pulmonary disease exacerbation. 2. Ground level fall without intracranial injury. 3. Non-ST segment elevation myocardial infarction. 4. Probable congestive heart failure with elevated natriuretic peptide and interstitial edema on chest x-ray. 5. Probable history of stroke. 6. Hypertension. BP better after NS bolus A flutter at 65/min looks stronger not SOB cont rx, taper steroids soon Subjective Respiratory: Denies: shortness of breath Allergies: Coded Allergies: No Known Allergies (Unverified , 06/05/14) Objective Last 24 Hour Vital Signs Date Time Temp Pulse Resp B/P (MAP) Pulse Ox O2 Delivery O2 Flow Rate FiO2 05/28/17 08:50 61 91/66 05/28/17 08:00 97.2 61 20 91/66 98 Nasal Cannula 2.0 05/28/17 06:40 60 76/53 05/28/17 06:20 97.2 62 28 82/57 96 Nasal Cannula 2.0 05/28/17 06:00 58 98/44 05/28/17 05:50 62 26 98/42 98 Nasal Cannula 2.0 05/28/17 05:00 60 28 82/48 100 Nasal Cannula 2.0 05/28/17 04:00 97.9 62 33 83/41 98 Nasal Cannula 2.0 05/28/17 04:00 59 05/28/17 03:00 59 28 82/46 100 Nasal Cannula 2.0 05/28/17 02:00 56 21 96/51 100 Nasal Cannula 2.0 05/28/17 01:00 53 21 98/55 100 Nasal Cannula 2.0 05/28/17 00:00 59 05/28/17 00:00 98.3 60 33 89/53 98 Nasal Cannula 2.0 05/27/17 23:00 66 22 105/59 99 Nasal Cannula 2.0 05/27/17 22:00 66 33 95/54 99 Nasal Cannula 2.0 05/27/17 21:02 66 115/60 05/27/17 21:02 66 115/60 05/27/17 21:00 66 33 125/77 99 Nasal Cannula 2.0 05/27/17 20:00 66 05/27/17 20:00 99.0 66 33 115/60 98 Nasal Cannula 2.0 05/27/17 19:18 Nasal Cannula 2.0 28 05/27/17 19:18 100 Nasal Cannula 2.0 28 05/27/17 19:18 66 24 Nasal Cannula 2.0 28 05/27/17 19:00 66 32 114/62 99 Nasal Cannula 2.0 05/27/17 18:00 66 30 124/58 97 Nasal Cannula 2.0 05/27/17 17:00 62 28 101/53 98 Nasal Cannula 2.0 05/27/17 16:00 64 05/27/17 16:00 98.4 63 32 113/60 98 Nasal Cannula 2.0 05/27/17 15:00 82 25 111/59 99 Nasal Cannula 2.0 05/27/17 14:00 67 25 90/58 100 Nasal Cannula 2.0 05/27/17 13:00 64 31 102/72 100 Nasal Cannula 2.0 05/27/17 12:00 98.6 78 30 103/65 100 Nasal Cannula 2.0 05/27/17 12:00 69 05/27/17 12:00 74 103/55 05/27/17 11:00 67 21 95/54 100 Nasal Cannula 2.0 Objective was hypotensive General Appearance: no acute distress HEENT: atraumatic Respiratory/Chest: lungs clear, decreased breath sounds Cardiovascular: normal rate, regular rhythm Microbiology Date/Time Source Procedure Growth Status 05/27/17 04:05 Blood Blood Culture - Preliminary NO GROWTH AFTER 24 HOURS Resulted 05/27/17 04:00 Blood Blood Culture - Preliminary NO GROWTH AFTER 24 HOURS Resulted Laboratory Tests 05/28/17 03:30: Stool Occult Blood [Pending] 05/28/17 04:30: White Blood Count 10.9H, Red Blood Count 2.99L, Hemoglobin 9.2L, Hematocrit 34.1L, Mean Corpuscular Volume 114H, Mean Corpuscular Hemoglobin 30.9, Mean Corpuscular Hemoglobin Concent 27.1L, Red Cell Distribution Width 14.4, Platelet Count 275, Mean Platelet Volume 5.6L, Neutrophils (%) (Auto) , Lymphocytes (%) (Auto) , Monocytes (%) (Auto) , Eosinophils (%) (Auto) , Basophils (%) (Auto) , Differential Total Cells Counted 100, Neutrophils % ( Manual) 88H, Lymphocytes % (Manual) 9L, Monocytes % (Manual) 3, Eosinophils % ( Manual) 0, Basophils % (Manual) 0, Band Neutrophils 0, Platelet Estimate Adequate, Platelet Morphology Normal, Sodium Level 144, Potassium Level 5.7H, Chloride Level 103, Carbon Dioxide Level 35H, Anion Gap 6, Blood Urea Nitrogen 32H, Creatinine 2.6#H, Estimat Glomerular Filtration Rate , Glucose Level 167H, Calcium Level 8.7, Magnesium Level 1.9, Iron Level 24L, Total Iron Binding Capacity 295, Percent Iron Saturation 8L, Unsaturated Iron Binding 271, Troponin I [Pending], Triglycerides Level 35, Cholesterol Level 82, LDL Cholesterol 32, HDL Cholesterol 46, Cholesterol/HDL Ratio 1.8L Current Medications Medications (Trade) Dose Ordered Sig/Kate Route PRN Reason Start Time Stop Time Status Last Admin Dose Admin Acetaminophen (Tylenol) 1,000 mg EVERY 8 HOURS PRN ORAL Mild Pain/Temp > 100.5 05/28/17 14:00 06/26/17 05:44 Aspirin (ASA) 81 mg DAILY ORAL 05/28/17 09:00 06/26/17 08:59 05/28/17 08:50 Atorvastatin Calcium (Lipitor) 10 mg BEDTIME ORAL 05/28/17 21:00 06/26/17 20:59 Azithromycin (Zithromax) 250 mg DAILY ORAL 05/28/17 09:00 06/04/17 08:59 05/28/17 08:50 Ceftriaxone Sodium 1 gm/ Dextrose 55 ml @ 110 mls/hr Q24H IVPB 05/29/17 03:00 06/04/17 02:59 Dextrose (Dextrose 50%) STAT PRN IV Hypoglycemia 05/28/17 07:45 06/27/17 07:44 Diltiazem HCl (Cardizem) 60 mg EVERY 8 HOURS ORAL 05/28/17 14:00 06/26/17 05:59 Docusate Sodium (Colace) 100 mg TWICE A DAY ORAL 05/28/17 09:00 06/26/17 08:59 05/28/17 08:50 Enoxaparin Sodium (Lovenox) 70 mg Q12H SUBQ 05/28/17 10:00 06/26/17 09:59 05/28/17 10:07 Gabapentin (Neurontin) 200 mg BID ORAL 05/28/17 09:00 06/27/17 08:59 05/28/17 08:49 Insulin Aspart (NovoLOG) BEFORE MEALS AND HS SUBQ 05/28/17 11:30 06/27/17 11:29 Ipratropium [place] (Atrovent) 500 mcg Q4H PRN HHN Shortness of Breath 05/28/17 09:45 06/01/17 05:44 Magnesium Hydroxide (Mom) 30 ml DAILYPRN PRN ORAL Constipation 05/29/17 05:45 06/26/17 05:44 Methylprednisolone Sodium Succinate (Solu-MEDROL) 40 mg EVERY 12 HOURS IVP 05/28/17 09:00 06/26/17 08:59 05/28/17 08:49 Metoprolol Tartrate (Lopressor) 25 mg Q12HR ORAL 05/28/17 09:00 06/26/17 09:29 Ranitidine HCl (Zantac) 150 mg TWICE A DAY ORAL 05/28/17 09:00 06/26/17 09:29 05/28/17 08:50 Sodium Chloride 1,000 ml @ 150 mls/hr Q6H40M IV 05/28/17 07:45 05/28/17 13:45 05/28/17 08:01 GRIS JEFFERY May 28, 2017 10:23
[2017-05-28 11:11] LABS: A/G RATIO 0.9 (0.7-1.7); ABNORMAL PROTEIN BAND 1 Not Observed g/dL (Not Observed); ALBUMIN 3.4 g/dL (2.9-4.4); ALPHA-1 GLOBULIN 0.3 g/dL (0.0-0.4); ALPHA-2 GLOBULIN 0.9 g/dL (0.4-1.0); GAMMA GLOBULIN 1.5 g/dL (0.4-1.8); GLOBULIN, TOTAL 3.8 g/dL (2.2-3.9); TOTAL PROTEIN 7.2 g/dL (6.0-8.5)
[2017-05-28] MEDS: NovoLOG Insulin Flexpen SUBQ SCH ×3 (11:18→22:40)
[2017-05-28 12:12] LABS: APPEARANCE,URINE CLOUDY; KETONES,URINE NEGATIVE (NEGATIVE); LEUKOCYTE ESTERASE ,URINE 1+ (NEGATIVE); NITRITE,URINE NEGATIVE (NEGATIVE); PH,URINE 5 (4.5-8.0); PROTEIN,URINE 2+ (NEGATIVE); UROBILINOGEN,URINE NORMAL MG/DL (0.0-1.0)
[2017-05-28 12:29] LABS: BACTERIA,URINE MANY /HPF; SQUAMOUS EPITHELIAL CELL,UR MODERATE /LPF (NONE/OCC)
--- NOTE | 2017-05-28 12:38 | Cardiology Report ---
APPROVED REPORT EXAM: Two-dimensional and M-mode echocardiogram with Doppler and color Doppler. INDICATION Congestive Heart Failure M-Mode DIMENSIONS IVSd1.3 (0.7-1.1cm)Left Atrium (MM)3.5 (1.6-4.0cm) LVDd2.9 (3.5-5.6cm)Aortic Root3.4 (2.0-3.7cm) PWd1.5 (0.7-1.1cm)Aortic Cusp Exc.1.9 (1.5-2.0cm) LVDs2.3 (2.5-4.0cm) PWs1.8 cm Normal left ventricular chamber size, systolic function and wall motion. Left ventricular ejection fraction estimated to be 60%. No left ventricular hypertrophy. No evidence of pericardial effusion. Mild left atrial enlargement. Moderate right atrial enlargement. Right ventricular chamber size is within normal limits. Focal aortic valve sclerosis with adequate cusp excursion. Thickened mitral valve leaflets with normal excursion. Mitral annulus and aortic root calcification. Normal pulmonic valve structure. Normal tricuspid valve structure. IVC at normal size with physiologic collapse. A color flow and spectral Doppler study was performed and revealed: No aortic regurgitation. Mitral diastolic velocities suggest reduced left ventricular relaxation c/w mild LV diastolic dysfunction (Grade I). Moderate mitral regurgitation. Moderate to severe tricuspid regurgitation. Tricuspid systolic velocities suggests peak right ventricular systolic pressure of 52 mmHg, consistent with moderate pulmonary hypertension. Trace pulmonic regurgitation present.
[2017-05-28] MEDS ORDERED: Acetaminophen 500mg (ES) tab ORAL PRN (14:00)
--- NOTE | 2017-05-28 14:08 | Diagnostic Imaging Report ---
APPROVED REPORT CPT Code: 19675 Present Symptoms Lower Extremity Edema: Shortness of breath Comments: Hx COPD, [place], HTN. BILATERAL: Imaging reveals a patent deep venous system bilaterally. There is no evidence of thrombus within the femoral, popliteal or tibial segments. The greater saphenous veins are also within normal limits. Doppler indicates normal spontaneous flow within these segments.
[2017-05-28] MEDS ORDERED: Vancomycin 1.5 GM/D5W 250ML IVPB ONE (20:00)
--- NOTE | 2017-05-28 23:15 | Progress Note ---
DATE: 05/28/2017 CARDIOLOGY PROGRESS NOTE SUBJECTIVE: The patient's blood pressure remains low. Positive response noted to have fluid challenge. She remains with atrial flutter, rate controlled. She is not short of breath. She has no chest pain. OBJECTIVE: VITAL SIGNS: Blood pressure is 105/65, pulse 77, respiratory rate 19, and afebrile. LUNGS: Coarse breath sounds. Few rhonchi. No wheezes. HEART: Irregularly irregular rhythm. Normal S1 and S2 with a 1/6 systolic murmur at apex. ABDOMEN: Soft. EXTREMITIES: No edema. LABORATORY DATA: White count is 10.9 and hemoglobin 9.2. Sodium 144, potassium 5.7, bicarbonate 35, BUN 32, and creatinine 3.6. Troponin down to 0.08. LDL cholesterol was 32. IMPRESSION: 1. Hypovolemic shock. 2. Orthostatic syncope with falls. 3. Paroxysmal atrial fibrillation/flutter with controlled ventricular response. 4. Chronic diastolic congestive heart failure. 5. Acute myocardial ischemia and possible non-ST elevation infarction. 6. Chronic obstructive pulmonary disease with acute exacerbation. PLAN: 1. Inhaled bronchodilators. 2. Steroid taper. 3. Volume support. 4. Hold diuretics. 5. Hold parameters for antihypertensives. 6. Continue anti-platelet therapy. 7. Continue full anticoagulation with Lovenox at this time. 8. Reassess for long-term anticoagulation prior to discharge based on risk to benefit ratio. Jan Moreno M.D. DR: Thor JOB#: [id number] CC:
[2017-05-29] VITALS: BP 124/76
[2017-05-29 04:00] VITALS: BP 116/70
[2017-05-29] MEDS: cefTRIAXone 1 GM in D5W 55 ML IVPB SCH (04:28)
[2017-05-29] MEDS ORDERED: Milk of Magnesia 30ml Ud ORAL PRN (05:45)
[2017-05-29] MEDS: dilTIAZem HCl 60mg tab ORAL SCH ×2 (06:25→13:57)
[2017-05-29] MEDS: NovoLOG Insulin Flexpen SUBQ SCH ×4 (06:34→21:09)
[2017-05-29 07:56] LABS: MEAN CORPUSCULAR HEMOGLOBIN 32.4 PG (27.0-31.0); MEAN CORPUSCULAR HGB CONC 29.2 G/DL (32.0-36.0); MEAN CORPUSCULAR VOLUME 111 FL (80-99); MEAN PLATELET VOLUME 5.8 FL (6.5-10.1); PLATELET COUNT 323 K/UL (150-450); RED CELL DISTRIBUTION WIDTH 14.8 % (11.6-14.8); WHITE BLOOD COUNT 12.2 K/UL (4.8-10.8)
[2017-05-29 08:00] VITALS: BP 91/51
[2017-05-29] MEDS: Metoprolol 25mg tab ORAL SCH ×2 (09:00→21:06)
[2017-05-29] MEDS ORDERED: Enoxaparin 80mg Inj SUBQ SCH (09:00)
[2017-05-29 09:07] LABS: ANION GAP 5 mmol/L (5-15); CALCIUM 8.5 MG/DL (8.5-10.1); CARBON DIOXIDE 34 MMOL/L (21-32); CHLORIDE 105 MMOL/L (98-107); CREATININE 1.6 MG/DL (0.55-1.30); POTASSIUM 5.4 MMOL/L (3.5-5.1); SODIUM 144 MMOL/L (136-145)
[2017-05-29] MEDS: Solu-MEDROL 40mg Inj IVP SCH ×2 (09:16→21:07)
[2017-05-29] MEDS: Aspirin Baby 81mg ORAL SCH (09:17)
[2017-05-29] MEDS: Docusate 100mg cap ORAL SCH ×2 (09:17→17:32)
[2017-05-29] MEDS: Azithromycin 250mg tab ORAL SCH (09:17)
[2017-05-29] MEDS: Vancomycin 1gm/D5W 275ml IVPB SCH ×2 (10:09)
--- NOTE | 2017-05-29 10:11 | General Progress Note ---
Assessment/Plan Status: stable Assessment/Plan 1) A. fib is converted to NSR 2) Clinically not in CHF 3) SITA is recovering 4)Acute exacerbation of COPD Plan: Will check labs in AM Mobilize Subjective Allergies: Coded Allergies: No Known Allergies (Unverified , 06/05/14) Subjective She is less sob, no c/p , creat is down to 1.6, she is n NSR Objective Last 24 Hour Vital Signs Date Time Temp Pulse Resp B/P (MAP) Pulse Ox O2 Delivery O2 Flow Rate FiO2 05/29/17 09:00 67 91/51 05/29/17 08:00 67 05/29/17 08:00 97.0 67 20 91/51 99 Nasal Cannula 2.0 05/29/17 07:00 67 20 Nasal Cannula 2.0 28 05/29/17 07:00 98 Nasal Cannula 2.0 28 05/29/17 07:00 Nasal Cannula 2.0 28 05/29/17 06:25 73 104/62 05/29/17 04:00 77 05/29/17 04:00 97.3 80 22 116/70 99 Nasal Cannula 3.0 05/29/17 01:32 107 05/29/17 00:00 97.3 101 21 124/76 98 Room Air 05/28/17 22:19 63 05/28/17 22:00 111 121/85 05/28/17 20:29 Nasal Cannula 2.0 28 05/28/17 20:29 70 20 Nasal Cannula 2.0 28 05/28/17 20:28 97 Nasal Cannula 2.0 28 05/28/17 20:00 97.9 100 21 125/80 94 Nasal Cannula 3.0 28 05/28/17 20:00 131 05/28/17 20:00 97.9 100 21 125/80 94 Nasal Cannula 3.0 28 05/28/17 20:00 97.9 100 21 125/80 94 Room Air 05/28/17 16:00 82 05/28/17 16:00 97.7 66 21 110/70 97 Nasal Cannula 2.0 05/28/17 14:33 91 112/70 05/28/17 12:00 78 05/28/17 12:00 97.5 77 19 105/65 98 Nasal Cannula 2.0 05/28/17 11:57 98 Nasal Cannula 2.0 28 05/28/17 11:57 Nasal Cannula 2.0 28 05/28/17 11:57 67 20 Nasal Cannula 2.0 28 Laboratory Tests 05/28/17 11:45: Urine Color Yellow, Urine Appearance Cloudy, Urine pH 5, Urine Specific [place] 1.020, Urine Protein 2+H, Urine Glucose (UA) Negative, Urine Ketones Negative, Urine Occult Blood 2+H, Urine Nitrite Negative, Urine Bilirubin Negative, Urine Urobilinogen Normal, Urine Leukocyte Esterase 1+H, Urine RBC 5-10H, Urine WBC 5- 10H, Urine Squamous Epithelial Cells ModerateH, Urine Bacteria ManyH 05/29/17 06:55: White Blood Count 12.2H, Red Blood Count 3.30L, Hemoglobin 10.7L, Hematocrit 36.7L, Mean Corpuscular Volume 111H, Mean Corpuscular Hemoglobin 32.4H, Mean Corpuscular Hemoglobin Concent 29.2L, Red Cell Distribution Width 14.8, Platelet Count 323, Mean Platelet Volume 5.8L, Neutrophils (%) (Auto) , Lymphocytes (%) (Auto) , Monocytes (%) (Auto) , Eosinophils (%) (Auto) , Basophils (%) (Auto) , Neutrophils % (Manual) [Pending], Lymphocytes % (Manual) [Pending], Platelet Estimate [Pending], Platelet Morphology [Pending], Sodium Level 144, Potassium Level 5.4H, Chloride Level 105, Carbon Dioxide Level 34H, Anion Gap 5, Blood Urea Nitrogen 42H, Creatinine 1.6H, Estimat Glomerular Filtration Rate , Glucose Level 196H, Calcium Level 8.5, Free Thyroxine 1.00, Random Vancomycin Level 15.5 Height (Feet): 5 Height (Inches): 5.00 Weight (Pounds): 181 General Appearance: WD/WN, no apparent distress EENT: PERRL/EOMI Neck: non-tender, normal alignment Cardiovascular: normal rate, regular rhythm, no JVD Respiratory/Chest: decreased breath sounds, expiratory wheezing Abdomen: normal bowel sounds, non tender Edema: mild edema Skin: normal pigmentation PARTH BLAIR May 29, 2017 10:11
[2017-05-29 10:48] LABS: BAND NEUTROPHILS % (MANUAL) 0 % (0-8); BASOPHILS % (MANUAL) 0 % (0-2); EOSINOPHILS % (MANUAL) 0 % (0-3); HYPOCHROMASIA 1+; LYMPHOCYTES % (MANUAL) 8 % (20-45); MACROCYTES 2+; NEUTROPHILS % (MANUAL) 88 % (45-75); PLATELET ESTIMATE ADEQUATE; TOTAL CELLS COUNTED 100
[2017-05-29 10:49] LABS: ANISOCYTOSIS 1+; PLATELET MORPHOLOGY NORMAL
[2017-05-29 12:00] VITALS: BP 119/65
--- NOTE | 2017-05-29 12:28 | Pulmonology Progress Note ---
Assessment/Plan Assessment/Plan 1. Chronic obstructive pulmonary disease exacerbation, improved 2. Ground level fall without intracranial injury. 3. Non-ST segment elevation myocardial infarction. 4. Probable congestive heart failure with elevated natriuretic peptide and interstitial edema on chest x-ray. 5. Probable history of stroke. 6. Hypertension. A flutter to SR looks stronger not SOB cont rx, taper steroids Subjective ROS Limited/Unobtainable: Yes Respiratory: Denies: shortness of breath Allergies: Coded Allergies: No Known Allergies (Unverified , 06/05/14) Objective Last 24 Hour Vital Signs Date Time Temp Pulse Resp B/P (MAP) Pulse Ox O2 Delivery O2 Flow Rate FiO2 05/29/17 09:00 67 91/51 05/29/17 08:00 67 05/29/17 08:00 97.0 67 20 91/51 99 Nasal Cannula 2.0 05/29/17 07:00 67 20 Nasal Cannula 2.0 28 05/29/17 07:00 98 Nasal Cannula 2.0 28 05/29/17 07:00 Nasal Cannula 2.0 28 05/29/17 06:25 73 104/62 05/29/17 04:00 77 05/29/17 04:00 97.3 80 22 116/70 99 Nasal Cannula 3.0 05/29/17 01:32 107 05/29/17 00:00 97.3 101 21 124/76 98 Room Air 05/28/17 22:19 63 05/28/17 22:00 111 121/85 05/28/17 20:29 Nasal Cannula 2.0 28 05/28/17 20:29 70 20 Nasal Cannula 2.0 28 05/28/17 20:28 97 Nasal Cannula 2.0 28 05/28/17 20:00 97.9 100 21 125/80 94 Nasal Cannula 3.0 28 05/28/17 20:00 131 05/28/17 20:00 97.9 100 21 125/80 94 Nasal Cannula 3.0 28 05/28/17 20:00 97.9 100 21 125/80 94 Room Air 05/28/17 16:00 82 05/28/17 16:00 97.7 66 21 110/70 97 Nasal Cannula 2.0 05/28/17 14:33 91 112/70 Intake and Output 05/29/17 05/30/17 19:00 07:00 Intake Total 367.416 ml Balance 367.416 ml IV Total 367.416 ml Objective was hypotensive General Appearance: no acute distress HEENT: atraumatic Respiratory/Chest: lungs clear Cardiovascular: normal rate Microbiology Date/Time Source Procedure Growth Status 05/27/17 04:05 Blood Blood Culture - Preliminary NO GROWTH AFTER 48 HOURS Resulted 05/27/17 04:00 Blood Blood Culture - Preliminary Staphylococcus Sp Coag Neg Resulted 05/28/17 11:45 Urine,Clean Catch Urine Culture - Preliminary NO GROWTH Resulted Laboratory Tests 05/29/17 06:55: White Blood Count 12.2H, Red Blood Count 3.30L, Hemoglobin 10.7L, Hematocrit 36.7L, Mean Corpuscular Volume 111H, Mean Corpuscular Hemoglobin 32.4H, Mean Corpuscular Hemoglobin Concent 29.2L, Red Cell Distribution Width 14.8, Platelet Count 323, Mean Platelet Volume 5.8L, Neutrophils (%) (Auto) , Lymphocytes (%) (Auto) , Monocytes (%) (Auto) , Eosinophils (%) (Auto) , Basophils (%) (Auto) , Differential Total Cells Counted 100, Neutrophils % ( Manual) 88H, Lymphocytes % (Manual) 8L, Monocytes % (Manual) 4, Eosinophils % ( Manual) 0, Basophils % (Manual) 0, Band Neutrophils 0, Platelet Estimate Adequate, Platelet Morphology Normal, Hypochromasia 1+, Anisocytosis 1+, Macrocytosis 2+, Sodium Level 144, Potassium Level 5.4H, Chloride Level 105, Carbon Dioxide Level 34H, Anion Gap 5, Blood Urea Nitrogen 42H, Creatinine 1.6H , Estimat Glomerular Filtration Rate , Glucose Level 196H, Calcium Level 8.5, Free Thyroxine 1.00, Random Vancomycin Level 15.5 Current Medications Medications (Trade) Dose Ordered Sig/Kate Route PRN Reason Start Time Stop Time Status Last Admin Dose Admin Acetaminophen (Tylenol) 1,000 mg EVERY 8 HOURS PRN ORAL Mild Pain/Temp > 100.5 05/28/17 14:00 06/26/17 05:44 Aspirin (ASA) 81 mg DAILY ORAL 05/28/17 09:00 06/26/17 08:59 05/29/17 09:17 Atorvastatin Calcium (Lipitor) 10 mg BEDTIME ORAL 05/28/17 21:00 06/26/17 20:59 05/28/17 22:18 Azithromycin (Zithromax) 250 mg DAILY ORAL 05/28/17 09:00 06/04/17 08:59 05/29/17 09:17 Ceftriaxone Sodium 1 gm/ Dextrose 55 ml @ 110 mls/hr Q24H IVPB 05/29/17 03:00 06/04/17 02:59 05/29/17 04:28 Dextrose (Dextrose 50%) STAT PRN IV Hypoglycemia 05/28/17 07:45 06/27/17 07:44 Diltiazem HCl (Cardizem) 60 mg EVERY 8 HOURS ORAL 05/28/17 14:00 06/26/17 05:59 05/29/17 06:25 Docusate Sodium (Colace) 100 mg TWICE A DAY ORAL 05/28/17 09:00 06/26/17 08:59 05/29/17 09:17 Enoxaparin Sodium (Lovenox) 80 mg DAILY SUBQ 05/29/17 09:00 06/28/17 08:59 05/29/17 09:19 Gabapentin (Neurontin) 200 mg BID ORAL 05/28/17 09:00 06/27/17 08:59 05/29/17 09:17 Insulin Aspart (NovoLOG) BEFORE MEALS AND HS SUBQ 05/28/17 11:30 06/27/17 11:29 05/29/17 11:41 Ipratropium [place] (Atrovent) 500 mcg Q4H PRN HHN Shortness of Breath 05/28/17 09:45 06/01/17 05:44 Magnesium Hydroxide (Mom) 30 ml DAILYPRN PRN ORAL Constipation 05/29/17 05:45 06/26/17 05:44 Methylprednisolone Sodium Succinate (Solu-MEDROL) 40 mg EVERY 12 HOURS IVP 05/28/17 09:00 06/26/17 08:59 05/29/17 09:16 Metoprolol Tartrate (Lopressor) 25 mg Q12HR ORAL 05/28/17 09:00 06/26/17 09:29 05/28/17 22:19 Ranitidine HCl (Zantac) 150 mg DAILY ORAL 05/29/17 09:00 06/27/17 08:59 05/29/17 09:17 Vancomycin HCl (Vanco rx to dose) 1 ea DAILY PRN MISC Per rx protocol 05/28/17 17:30 06/27/17 17:29 Vancomycin HCl 1 gm/Dextrose 275 ml @ 183.708 mls/hr Q24H IVPB 05/29/17 10:00 06/03/17 09:59 05/29/17 10:09 GRIS JEFFERY May 29, 2017 12:28
[2017-05-29 16:00] VITALS: BP 110/65
[2017-05-29 20:13] VITALS: BP 113/66
[2017-05-30 00:19] VITALS: BP 110/68
--- NOTE | 2017-05-30 01:30 | Progress Note ---
DATE: 05/29/2017 CARDIOLOGY PROGRESS NOTE SUBJECTIVE: The patient was converted to sinus rhythm with frequent atrial ectopics. She has no shortness of breath or chest pain. OBJECTIVE: VITAL SIGNS: Blood pressure 91/51, heart rate 67, and respiratory rate 20. LUNGS: Diminished breath sounds. No wheezing. HEART: Regular rhythm and rate. Normal S1 and S2. ABDOMEN: Soft. EXTREMITIES: No edema. LABORATORY DATA: White count 12.2 and hemoglobin 10.7. Sodium 144, potassium 5.4, bicarbonate 34, BUN 42, and creatinine 1.6. Troponin down to 0.08. IMPRESSION: 1. Acute myocardial infarction. 2. Dhbhw-ns-mwwsssx renal failure. 3. Hyperkalemia. 4. Contraction alkalosis. 5. Paroxysmal atrial fibrillation/flutter. 6. Chronic obstructive pulmonary disease with exacerbation. PLAN: 1. Antimicrobials. 2. Steroid taper. 3. Continue insulin with titration. 4. Discontinue high-dose anticoagulant. 5. Discontinue diltiazem in view of low range blood pressure. 6. Continue beta-román. Jan Moreno M.D. DR: YUNG JOB#: [id number] CC:
[2017-05-30] MEDS: cefTRIAXone 1 GM in D5W 55 ML IVPB SCH (03:02)
[2017-05-30 04:16] VITALS: BP 135/72
[2017-05-30] MEDS: NovoLOG Insulin Flexpen SUBQ SCH ×4 (06:52→20:31)
[2017-05-30 08:32] VITALS: BP 138/73
[2017-05-30 08:41] LABS: MEAN CORPUSCULAR HGB CONC 28.6 G/DL (32.0-36.0); MEAN CORPUSCULAR VOLUME 112 FL (80-99); MEAN PLATELET VOLUME 5.6 FL (6.5-10.1); PLATELET COUNT 349 K/UL (150-450); RED BLOOD COUNT 3.16 M/UL (4.20-5.40); RED CELL DISTRIBUTION WIDTH 14.4 % (11.6-14.8); WHITE BLOOD COUNT 11.3 K/UL (4.8-10.8)
[2017-05-30 08:53] LABS: ANION GAP 2 mmol/L (5-15); CALCIUM 8.8 MG/DL (8.5-10.1); CARBON DIOXIDE 38 MMOL/L (21-32); CHLORIDE 105 MMOL/L (98-107); CREATININE 1.2 MG/DL (0.55-1.30); POTASSIUM 4.9 MMOL/L (3.5-5.1); SODIUM 145 MMOL/L (136-145)
[2017-05-30] MEDS ORDERED: Heparin 5000 units/ml inj SUBQ SCH (09:00)
[2017-05-30] MEDS: Metoprolol Tartrate 50mg tab ORAL SCH ×2 (09:40→20:33)
[2017-05-30] MEDS: Azithromycin 250mg tab ORAL SCH (09:41)
[2017-05-30] MEDS: Aspirin Baby 81mg ORAL SCH (09:42)
[2017-05-30] MEDS: Solu-MEDROL 40mg Inj IVP SCH ×2 (09:42→20:33)
[2017-05-30] MEDS: Docusate 100mg cap ORAL SCH ×2 (09:42→17:05)
--- NOTE | 2017-05-30 10:08 | General Progress Note ---
Assessment/Plan Assessment/Plan 1) Paroxysmal a. fib 2) Clinically not in CHF 3) SITA is recovering 4)Acute exacerbation of COPD Plan: Needs to be mobilized Needs to be on anticoagulation, consider Eliquis Subjective Allergies: Coded Allergies: No Known Allergies (Unverified , 06/05/14) Subjective She is doing about the same, creat is down to 1.2, she is back in atrial fib again Objective Last 24 Hour Vital Signs Date Time Temp Pulse Resp B/P (MAP) Pulse Ox O2 Delivery O2 Flow Rate FiO2 05/30/17 09:40 93 138/73 05/30/17 08:32 96.8 93 18 138/73 100 Nasal Cannula 2.0 05/30/17 07:50 Nasal Cannula 3.0 32 05/30/17 07:50 84 20 Nasal Cannula 3.0 32 05/30/17 07:50 94 Nasal Cannula 3.0 32 05/30/17 04:16 99.1 91 20 135/72 100 Nasal Cannula 2.0 05/30/17 04:00 84 05/30/17 00:19 98.4 70 20 110/68 100 Nasal Cannula 2.0 05/30/17 00:00 73 05/29/17 21:06 77 113/66 05/29/17 20:13 97.5 77 20 113/66 100 Nasal Cannula 2.0 05/29/17 20:00 75 05/29/17 19:50 Nasal Cannula 2.0 28 05/29/17 19:50 98 Nasal Cannula 2.0 28 05/29/17 19:50 79 20 Nasal Cannula 2.0 28 05/29/17 16:00 97.5 65 22 110/65 100 Nasal Cannula 2.0 05/29/17 16:00 60 05/29/17 13:57 81 119/65 05/29/17 12:00 72 05/29/17 12:00 97.7 81 18 119/65 100 Nasal Cannula 2.0 Laboratory Tests 05/29/17 18:15: Stool Occult Blood [Pending] 05/30/17 07:45: White Blood Count 11.3H, Red Blood Count 3.16L, Hemoglobin 10.1L, Hematocrit 35.4L, Mean Corpuscular Volume 112H, Mean Corpuscular Hemoglobin 32.0H, Mean Corpuscular Hemoglobin Concent 28.6L, Red Cell Distribution Width 14.4, Platelet Count 349, Mean Platelet Volume 5.6L, Neutrophils (%) (Auto) , Lymphocytes (%) (Auto) , Monocytes (%) (Auto) , Eosinophils (%) (Auto) , Basophils (%) (Auto) , Neutrophils % (Manual) [Pending], Lymphocytes % (Manual) [Pending], Platelet Estimate [Pending], Platelet Morphology [Pending], Sodium Level 145, Potassium Level 4.9, Chloride Level 105, Carbon Dioxide Level 38H, Anion Gap 2L, Blood Urea Nitrogen 38H, Creatinine 1.2, Estimat Glomerular Filtration Rate , Glucose Level 167H, Calcium Level 8.8, Troponin I 0.029 Height (Feet): 5 Height (Inches): 5.00 Weight (Pounds): 183 General Appearance: WD/WN, no apparent distress EENT: normal ENT inspection Neck: non-tender, normal alignment Cardiovascular: no JVD, irregularly irregular Respiratory/Chest: chest wall non-tender, lungs clear Abdomen: normal bowel sounds, non tender, no organomegaly Neurologic: health services coordinator II-XII grossly normal PARTH BLAIR May 30, 2017 10:08
[2017-05-30 11:09] LABS: ANISOCYTOSIS 1+; BAND NEUTROPHILS % (MANUAL) 0 % (0-8); BASOPHILS % (MANUAL) 0 % (0-2); EOSINOPHILS % (MANUAL) 0 % (0-3); HYPOCHROMASIA 1+; LYMPHOCYTES % (MANUAL) 4 % (20-45); MACROCYTES 1+; NEUTROPHILS % (MANUAL) 90 % (45-75); PLATELET ESTIMATE ADEQUATE; PLATELET MORPHOLOGY NORMAL; TOTAL CELLS COUNTED 100
[2017-05-30] MEDS: Eliquis 2.5mg tablet ORAL SCH ×2 (11:09→17:05)
[2017-05-30] MEDS: Vancomycin 1gm/D5W 275ml IVPB SCH ×2 (11:10)
[2017-05-30 11:34] VITALS: BP 114/70
[2017-05-30 15:47] VITALS: BP 119/75
[2017-05-30 20:25] VITALS: BP 122/71
[2017-05-31 00:47] VITALS: BP 126/77
[2017-05-31] MEDS: cefTRIAXone 1 GM in D5W 55 ML IVPB SCH (03:01)
--- NOTE | 2017-05-31 03:45 | Progress Note ---
DATE: 05/30/2017 CARDIOLOGY PROGRESS NOTE SUBJECTIVE: The patient is without new complaints. No chest pain. No shortness of breath. Monitor reveals recurrent episodes of atrial fibrillation. PHYSICAL EXAMINATION: VITAL SIGNS: Blood pressure 138/73, pulse 93, and respiratory rate 18. NECK: Supple. LUNGS: Clear. CARDIAC: Irregularly irregular. Normal S1, S2. A 1/6 apical murmur. ABDOMEN: Soft. EXTREMITIES: Trace edema. LABORATORY DATA: White count 11.3 and hemoglobin 10.1. Stool occult blood is positive x1 and negative x1. Sodium 145, potassium 4.9, bicarbonate 38, BUN 38, creatinine 1.2, glucose 167, troponin 0.029, and LDL cholesterol 32. IMPRESSION: 1. Chronic obstructive pulmonary disease exacerbation. 2. Acute myocardial infarction. PLAN: 1. Apixaban for cardioembolic prophylaxis. 2. Continue beta-román for rate control. 3. Steroid taper. 4. Discontinue anti-platelet therapy to decrease bleeding risks. 5. Monitor volume status and cardiorenal parameters. 6. We will trend natriuretic peptide assay results. Jan Moreno M.D. DR: WESLEY JOB#: [id number] CC:
[2017-05-31 04:00] VITALS: BP 147/69
[2017-05-31] MEDS: NovoLOG Insulin Flexpen SUBQ SCH ×4 (06:27→21:00)
[2017-05-31 08:00] VITALS: BP 115/64
[2017-05-31 08:03] LABS: MEAN CORPUSCULAR HEMOGLOBIN 32.3 PG (27.0-31.0); MEAN CORPUSCULAR HGB CONC 28.5 G/DL (32.0-36.0); MEAN CORPUSCULAR VOLUME 113 FL (80-99); MEAN PLATELET VOLUME 5.2 FL (6.5-10.1); PLATELET COUNT 336 K/UL (150-450); RED CELL DISTRIBUTION WIDTH 14.9 % (11.6-14.8); WHITE BLOOD COUNT 9.9 K/UL (4.8-10.8)
[2017-05-31] MEDS: Eliquis 2.5mg tablet ORAL SCH ×2 (08:24→17:20)
[2017-05-31] MEDS: Docusate 100mg cap ORAL SCH ×2 (08:24→17:19)
[2017-05-31] MEDS: Azithromycin 250mg tab ORAL SCH (08:24)
[2017-05-31] MEDS: Metoprolol Tartrate 50mg tab ORAL SCH ×2 (08:25→21:14)
[2017-05-31] MEDS: Solu-MEDROL 40mg Inj IVP SCH (08:29)
[2017-05-31 08:35] LABS: ALANINE AMINOTRANSFERASE 29 U/L (12-78); ALBUMIN/GLOBULIN RATIO 0.6 (1.0-2.7); ANION GAP 2 mmol/L (5-15); ASPARTATE AMINO TRANSFERASE 17 U/L (15-37); CALCIUM 8.9 MG/DL (8.5-10.1); CARBON DIOXIDE 38 MMOL/L (21-32); CHLORIDE 106 MMOL/L (98-107); MAGNESIUM 2.2 MG/DL (1.8-2.4); POTASSIUM 5.3 MMOL/L (3.5-5.1); SODIUM 146 MMOL/L (136-145); TOTAL PROTEIN 6.8 G/DL (6.4-8.2)
[2017-05-31 09:56] LABS: BAND NEUTROPHILS % (MANUAL) 3 % (0-8); LYMPHOCYTES % (MANUAL) 7 % (20-45); NEUTROPHILS % (MANUAL) 83 % (45-75); TOTAL CELLS COUNTED 100
[2017-05-31 09:57] LABS: ANISOCYTOSIS 1+; BASOPHILS % (MANUAL) 0 % (0-2); EOSINOPHILS % (MANUAL) 0 % (0-3); HYPOCHROMASIA 1+; MACROCYTES 1+; PLATELET ESTIMATE ADEQUATE; PLATELET MORPHOLOGY NORMAL
[2017-05-31] MEDS: Vancomycin 1gm/D5W 275ml IVPB SCH ×2 (10:59)
[2017-05-31 12:00] VITALS: BP 113/60
--- NOTE | 2017-05-31 12:57 | Pulmonology Progress Note ---
Assessment/Plan Assessment/Plan 1. Chronic obstructive pulmonary disease exacerbation, improved 2. Ground level fall without intracranial injury. 3. Non-ST segment elevation myocardial infarction. 4. Probable congestive heart failure with elevated natriuretic peptide and interstitial edema on chest x-ray. 5. Probable history of stroke. 6. Hypertension. high risk aspiration cough w eating not SOB cont rx disc w ST Subjective ROS Limited/Unobtainable: Yes Respiratory: Reports: dry cough Allergies: Coded Allergies: No Known Allergies (Unverified , 06/05/14) Objective Last 24 Hour Vital Signs Date Time Temp Pulse Resp B/P (MAP) Pulse Ox O2 Delivery O2 Flow Rate FiO2 05/31/17 08:25 81 115/64 05/31/17 08:00 97.2 81 17 115/64 95 Nasal Cannula 2.0 05/31/17 08:00 74 05/31/17 07:00 81 18 Nasal Cannula 2.0 28 05/31/17 07:00 100 Nasal Cannula 2.0 28 05/31/17 07:00 Nasal Cannula 2.0 28 05/31/17 04:00 78 05/31/17 04:00 98.0 82 18 147/69 98 Nasal Cannula 2.0 05/31/17 01:48 75 18 100 Nasal Cannula 2.0 28 05/31/17 01:40 82 20 100 Nasal Cannula 3.0 32 05/31/17 00:47 97.6 72 19 126/77 98 Nasal Cannula 2.0 05/31/17 00:00 69 05/30/17 20:33 80 122/71 05/30/17 20:25 97.9 80 18 122/71 100 Nasal Cannula 2.0 05/30/17 20:18 80 20 Nasal Cannula 2.0 28 05/30/17 20:18 96 Nasal Cannula 2.0 28 05/30/17 20:18 Nasal Cannula 2.0 28 05/30/17 20:00 77 05/30/17 16:00 80 05/30/17 15:47 97.9 85 18 119/75 95 Nasal Cannula 2.0 HEENT: atraumatic Respiratory/Chest: lungs clear Cardiovascular: normal rate Laboratory Tests 05/30/17 17:35: Stool Occult Blood Positive 05/31/17 07:25: White Blood Count 9.9, Red Blood Count 3.20L, Hemoglobin 10.4L, Hematocrit 36.3L , Mean Corpuscular Volume 113H, Mean Corpuscular Hemoglobin 32.3H, Mean Corpuscular Hemoglobin Concent 28.5L, Red Cell Distribution Width 14.9H, Platelet Count 336, Mean Platelet Volume 5.2L, Neutrophils (%) (Auto) , Lymphocytes (%) (Auto) , Monocytes (%) (Auto) , Eosinophils (%) (Auto) , Basophils (%) (Auto) , Differential Total Cells Counted 100, Neutrophils % ( Manual) 83H, Lymphocytes % (Manual) 7L, Monocytes % (Manual) 7, Eosinophils % ( Manual) 0, Basophils % (Manual) 0, Band Neutrophils 3, Platelet Estimate Adequate, Platelet Morphology Normal, Hypochromasia 1+, Anisocytosis 1+, Macrocytosis 1+, Sodium Level 146H, Potassium Level 5.3H, Chloride Level 106, Carbon Dioxide Level 38H, Anion Gap 2L, Blood Urea Nitrogen 31H, Creatinine 1.0 , Estimat Glomerular Filtration Rate , Glucose Level 119H, Calcium Level 8.9, Magnesium Level 2.2, Total Bilirubin 0.2, Aspartate Amino Transf (AST/SGOT) 17, Alanine Aminotransferase (ALT/SGPT) 29, Alkaline Phosphatase 76, Pro-B-Type Natriuretic Peptide 7204H, Total Protein 6.8, Albumin 2.6L, Globulin 4.2, Albumin/Globulin Ratio 0.6L Current Medications Medications (Trade) Dose Ordered Sig/Kate Route PRN Reason Start Time Stop Time Status Last Admin Dose Admin Acetaminophen (Tylenol) 1,000 mg EVERY 8 HOURS PRN ORAL Mild Pain/Temp > 100.5 05/28/17 14:00 06/26/17 05:44 Apixaban (Eliquis) 2.5 mg BID ORAL 05/30/17 11:00 06/29/17 10:59 05/31/17 08:24 Atorvastatin Calcium (Lipitor) 10 mg BEDTIME ORAL 05/28/17 21:00 06/26/17 20:59 05/30/17 20:33 Azithromycin (Zithromax) 250 mg DAILY ORAL 05/28/17 09:00 06/04/17 08:59 05/31/17 08:24 Ceftriaxone Sodium 1 gm/ Dextrose 55 ml @ 110 mls/hr Q24H IVPB 05/29/17 03:00 06/04/17 02:59 05/31/17 03:01 Dextrose (Dextrose 50%) STAT PRN IV Hypoglycemia 05/28/17 07:45 06/27/17 07:44 Docusate Sodium (Colace) 100 mg TWICE A DAY ORAL 05/28/17 09:00 06/26/17 08:59 05/31/17 08:24 Gabapentin (Neurontin) 200 mg BID ORAL 05/28/17 09:00 06/27/17 08:59 05/31/17 08:26 Insulin Aspart (NovoLOG) BEFORE MEALS AND HS SUBQ 05/28/17 11:30 06/27/17 11:29 05/31/17 11:46 Ipratropium [place] (Atrovent) 500 mcg Q4H PRN HHN Shortness of Breath 05/28/17 09:45 06/01/17 05:44 05/31/17 01:40 Magnesium Hydroxide (Mom) 30 ml DAILYPRN PRN ORAL Constipation 05/29/17 05:45 06/26/17 05:44 Methylprednisolone Sodium Succinate (Solu-MEDROL) 20 mg DAILY IVP 05/31/17 09:00 06/28/17 20:59 05/31/17 08:29 Metoprolol Tartrate (Lopressor) 50 mg Q12HR ORAL 05/30/17 09:00 06/29/17 08:59 05/31/17 08:25 Ondansetron HCl (Zofran) 4 mg Q6H PRN IVP Nausea & Vomiting 05/30/17 22:15 06/29/17 22:14 05/30/17 22:24 Ranitidine HCl (Zantac) 150 mg DAILY ORAL 05/29/17 09:00 06/27/17 08:59 05/31/17 08:25 Vancomycin HCl (Vanco rx to dose) 1 ea DAILY PRN MISC Per rx protocol 05/28/17 17:30 06/27/17 17:29 Vancomycin HCl 1 gm/Dextrose 275 ml @ 183.708 mls/hr Q24H IVPB 05/29/17 10:00 06/03/17 09:59 05/31/17 10:59 GRIS JEFFERY May 31, 2017 12:57
[2017-05-31 16:00] VITALS: BP 119/62
--- NOTE | 2017-05-31 17:22 | General Progress Note ---
Assessment/Plan Assessment/Plan 1) Paroxysmal a. fib 2) Clinically in some fluid overload 3) SITA is recovering 4)Acute exacerbation of COPD Plan: Needs to be mobilized Continue Eliquis Lasix 40 mg IV Q8 x2 Subjective Allergies: Coded Allergies: No Known Allergies (Unverified , 06/05/14) Subjective She is doing about the same, creat is down to 1.0, has been started on Eliquis , no bleeding, still some sob Objective Last 24 Hour Vital Signs Date Time Temp Pulse Resp B/P (MAP) Pulse Ox O2 Delivery O2 Flow Rate FiO2 05/31/17 16:00 98.4 86 17 119/62 97 Nasal Cannula 2.0 05/31/17 12:00 79 05/31/17 12:00 97.5 85 17 113/60 95 Nasal Cannula 2.0 05/31/17 08:25 81 115/64 05/31/17 08:00 97.2 81 17 115/64 95 Nasal Cannula 2.0 05/31/17 08:00 74 05/31/17 07:00 81 18 Nasal Cannula 2.0 28 05/31/17 07:00 100 Nasal Cannula 2.0 28 05/31/17 07:00 Nasal Cannula 2.0 28 05/31/17 04:00 78 05/31/17 04:00 98.0 82 18 147/69 98 Nasal Cannula 2.0 05/31/17 01:48 75 18 100 Nasal Cannula 2.0 28 05/31/17 01:40 82 20 100 Nasal Cannula 3.0 32 05/31/17 00:47 97.6 72 19 126/77 98 Nasal Cannula 2.0 05/31/17 00:00 69 05/30/17 20:33 80 122/71 05/30/17 20:25 97.9 80 18 122/71 100 Nasal Cannula 2.0 05/30/17 20:18 80 20 Nasal Cannula 2.0 28 05/30/17 20:18 96 Nasal Cannula 2.0 28 05/30/17 20:18 Nasal Cannula 2.0 28 05/30/17 20:00 77 Laboratory Tests 05/30/17 17:35: Stool Occult Blood Positive 05/31/17 07:25: White Blood Count 9.9, Red Blood Count 3.20L, Hemoglobin 10.4L, Hematocrit 36.3L , Mean Corpuscular Volume 113H, Mean Corpuscular Hemoglobin 32.3H, Mean Corpuscular Hemoglobin Concent 28.5L, Red Cell Distribution Width 14.9H, Platelet Count 336, Mean Platelet Volume 5.2L, Neutrophils (%) (Auto) , Lymphocytes (%) (Auto) , Monocytes (%) (Auto) , Eosinophils (%) (Auto) , Basophils (%) (Auto) , Differential Total Cells Counted 100, Neutrophils % ( Manual) 83H, Lymphocytes % (Manual) 7L, Monocytes % (Manual) 7, Eosinophils % ( Manual) 0, Basophils % (Manual) 0, Band Neutrophils 3, Platelet Estimate Adequate, Platelet Morphology Normal, Hypochromasia 1+, Anisocytosis 1+, Macrocytosis 1+, Sodium Level 146H, Potassium Level 5.3H, Chloride Level 106, Carbon Dioxide Level 38H, Anion Gap 2L, Blood Urea Nitrogen 31H, Creatinine 1.0 , Estimat Glomerular Filtration Rate , Glucose Level 119H, Calcium Level 8.9, Magnesium Level 2.2, Total Bilirubin 0.2, Aspartate Amino Transf (AST/SGOT) 17, Alanine Aminotransferase (ALT/SGPT) 29, Alkaline Phosphatase 76, Pro-B-Type Natriuretic Peptide 7204H, Total Protein 6.8, Albumin 2.6L, Globulin 4.2, Albumin/Globulin Ratio 0.6L Height (Feet): 5 Height (Inches): 5.00 Weight (Pounds): 178 General Appearance: WD/WN, no apparent distress Neck: non-tender, normal alignment Cardiovascular: JVD - high, irregularly irregular Respiratory/Chest: decreased breath sounds Extremities: normal range of motion Edema: severe edema Neurologic: disoriented PARTH BLAIR May 31, 2017 17:22
[2017-05-31] MEDS ORDERED: Eliquis 2.5mg tablet ORAL SCH (18:00)
[2017-05-31 20:32] VITALS: BP 119/69
[2017-06-01 00:39] VITALS: BP 129/79
[2017-06-01] MEDS: cefTRIAXone 1 GM in D5W 55 ML IVPB SCH (02:37)
--- NOTE | 2017-06-01 03:00 | Progress Note ---
DATE: 05/31/2017 CARDIOLOGY PROGRESS NOTE SUBJECTIVE: The patient has coughing after eating. She denies shortness of breath. Speech therapy is ongoing. OBJECTIVE: VITAL SIGNS: Blood pressure 115/64, pulse 81, respirations 17, and afebrile. NECK: Supple. LUNGS: Few rhonchi. No wheezes. CARDIAC: Regular rhythm and rate. Normal S1 and S2 with a fourth heart sound. ABDOMEN: Soft. EXTREMITIES: No edema. LABORATORY DATA: White count 9.9 and hemoglobin 10.4. Sodium 146, potassium 5.3, bicarbonate 38, BUN 31, and creatinine 1. Magnesium 2.2. IMPRESSION: 1. Chronic obstructive pulmonary disease exacerbation. 2. Acute myocardial infarction. 3. Paroxysmal atrial fibrillation. 4. Acute on chronic diastolic congestive heart failure. 5. Acute on chronic renal failure. PLAN: 1. Full anticoagulation for cardioembolic prophylaxis. 2. Respiratory hygiene. 3. Free water replacement. 4. Encourage oral intake. 5. Maintain beta-román for blood pressure and rate control. 6. Cautious diuresis with close monitoring of electrolytes and cardiorenal function. Jan Moreno M.D. DR: MINA JOB#: [id number] CC:
[2017-06-01 04:47] VITALS: BP 137/83
[2017-06-01] MEDS: NovoLOG Insulin Flexpen SUBQ SCH ×4 (06:30→21:47)
[2017-06-01 07:16] LABS: ANION GAP 1 mmol/L (5-15); CALCIUM 9.2 MG/DL (8.5-10.1); CHLORIDE 100 MMOL/L (98-107); SODIUM 144 MMOL/L (136-145)
[2017-06-01 07:27] LABS: CARBON DIOXIDE 43 MMOL/L (21-32)
[2017-06-01 08:00] VITALS: BP 127/57
[2017-06-01] MEDS: Eliquis 2.5mg tablet ORAL SCH ×2 (08:55→17:09)
[2017-06-01] MEDS: Solu-MEDROL 40mg Inj IVP SCH (08:56)
[2017-06-01] MEDS: Docusate 100mg cap ORAL SCH ×2 (08:56→18:00)
[2017-06-01] MEDS: Metoprolol Tartrate 50mg tab ORAL SCH ×2 (08:56→21:44)
[2017-06-01] MEDS: Azithromycin 250mg tab ORAL SCH (08:58)
[2017-06-01] MEDS: Vancomycin 1gm/D5W 275ml IVPB SCH ×2 (10:59)
--- NOTE | 2017-06-01 11:42 | Pulmonology Progress Note ---
Assessment/Plan Assessment/Plan 1. Chronic obstructive pulmonary disease exacerbation, improved 2. Ground level fall without intracranial injury. 3. Non-ST segment elevation myocardial infarction. 4. Probable congestive heart failure with elevated natriuretic peptide and interstitial edema on chest x-ray. 5. Probable history of stroke. 6. Hypertension. high risk aspiration cough w eating not SOB, mid wheezing hold Colace w soft stool disc w RN Subjective ROS Limited/Unobtainable: Yes Respiratory: Reports: wheezing Gastrointestinal/Abdominal: Reports: diarrhea Allergies: Coded Allergies: No Known Allergies (Unverified , 06/05/14) Objective Last 24 Hour Vital Signs Date Time Temp Pulse Resp B/P (MAP) Pulse Ox O2 Delivery O2 Flow Rate FiO2 06/01/17 08:56 120 127/57 06/01/17 08:38 98 Nasal Cannula 2.0 28 06/01/17 08:38 Nasal Cannula 2.0 28 06/01/17 08:38 111 20 Nasal Cannula 2.0 28 06/01/17 08:00 97.0 120 21 127/57 96 Room Air 06/01/17 08:00 137 06/01/17 04:47 98.1 113 18 137/83 Room Air 06/01/17 04:16 107 06/01/17 00:39 98.1 94 18 129/79 79 Room Air 05/31/17 23:49 97 05/31/17 21:14 85 119/69 05/31/17 20:32 98.1 85 18 119/69 97 Room Air 05/31/17 19:53 87 05/31/17 19:30 95 Nasal Cannula 2.0 28 05/31/17 19:30 Nasal Cannula 2.0 28 05/31/17 19:30 84 20 Nasal Cannula 2.0 28 05/31/17 18:24 98.4 05/31/17 16:00 98.4 86 17 119/62 97 Nasal Cannula 2.0 05/31/17 16:00 82 05/31/17 12:00 79 05/31/17 12:00 97.5 85 17 113/60 95 Nasal Cannula 2.0 General Appearance: no acute distress HEENT: atraumatic Respiratory/Chest: expiratory wheezing Cardiovascular: normal rate Laboratory Tests 06/01/17 04:30: Sodium Level 144, Potassium Level 4.0, Chloride Level 100, Carbon Dioxide Level 43*H, Anion Gap 1L, Blood Urea Nitrogen 31H, Creatinine 1.0, Estimat Glomerular Filtration Rate , Glucose Level 111H, Calcium Level 9.2 06/01/17 08:55: Vancomycin Level Trough 12.7H Current Medications Medications (Trade) Dose Ordered Sig/Kate Route PRN Reason Start Time Stop Time Status Last Admin Dose Admin Acetaminophen (Tylenol) 1,000 mg EVERY 8 HOURS PRN ORAL Mild Pain/Temp > 100.5 05/28/17 14:00 06/26/17 05:44 05/31/17 17:25 Apixaban (Eliquis) 2.5 mg BID ORAL 05/30/17 11:00 06/29/17 10:59 06/01/17 08:55 Atorvastatin Calcium (Lipitor) 10 mg BEDTIME ORAL 05/28/17 21:00 06/26/17 20:59 05/31/17 21:14 Azithromycin (Zithromax) 250 mg DAILY ORAL 05/28/17 09:00 06/04/17 08:59 06/01/17 08:58 Ceftriaxone Sodium 1 gm/ Dextrose 55 ml @ 110 mls/hr Q24H IVPB 05/29/17 03:00 06/04/17 02:59 06/01/17 02:37 Dextrose (Dextrose 50%) STAT PRN IV Hypoglycemia 05/28/17 07:45 06/27/17 07:44 Docusate Sodium (Colace) 100 mg TWICE A DAY ORAL 05/28/17 09:00 06/26/17 08:59 06/01/17 08:56 Gabapentin (Neurontin) 200 mg BID ORAL 05/28/17 09:00 06/27/17 08:59 06/01/17 08:57 Insulin Aspart (NovoLOG) BEFORE MEALS AND HS SUBQ 05/28/17 11:30 06/27/17 11:29 06/01/17 11:08 Magnesium Hydroxide (Mom) 30 ml DAILYPRN PRN ORAL Constipation 05/29/17 05:45 06/26/17 05:44 Methylprednisolone Sodium Succinate (Solu-MEDROL) 20 mg DAILY IVP 05/31/17 09:00 06/28/17 20:59 06/01/17 08:56 Metoprolol Tartrate (Lopressor) 50 mg Q12HR ORAL 05/30/17 09:00 06/29/17 08:59 06/01/17 08:56 Ondansetron HCl (Zofran) 4 mg Q6H PRN IVP Nausea & Vomiting 05/30/17 22:15 06/29/17 22:14 05/30/17 22:24 Ranitidine HCl (Zantac) 150 mg DAILY ORAL 05/29/17 09:00 06/27/17 08:59 06/01/17 08:57 Vancomycin HCl (Vanco rx to dose) 1 ea DAILY PRN MISC Per rx protocol 05/28/17 17:30 06/27/17 17:29 Vancomycin HCl 1 gm/Dextrose 275 ml @ 183.708 mls/hr Q24H IVPB 05/29/17 10:00 06/03/17 09:59 06/01/17 10:59 GRIS JEFFERY Jun 01, 2017 11:42
[2017-06-01 12:00] VITALS: BP 136/79
[2017-06-01] MEDS ORDERED: ALDACTONE25 MG ORAL (13:02)
[2017-06-01] MEDS ORDERED: DIAMOX SEQUELS500 MG ORAL (13:02)
[2017-06-01] MEDS ORDERED: PREDNISONE10 M2 PO (13:02)
[2017-06-01] MEDS ORDERED: ELIQUIS2.5 MG ORAL (13:02)
[2017-06-01] MEDS ORDERED: METOPROLOL TART50 MG ORAL (13:02)
[2017-06-01] MEDS ORDERED: dilTIAZem HCl 25mg/5ml Inj IVP ONE (14:15)
[2017-06-01 16:00] VITALS: BP 127/75
[2017-06-01] MEDS: dilTIAZem HCl 60mg tab ORAL SCH (18:36)
[2017-06-01] MEDS: Spironolactone 25mg tab ORAL SCH (18:36)
[2017-06-01 20:35] VITALS: BP 132/62
[2017-06-01] MEDS: Metoprolol 25mg tab ORAL SCH (21:45)
[2017-06-02] MEDS: dilTIAZem HCl 60mg tab ORAL SCH ×3 (00:25→12:32)
[2017-06-02 00:40] VITALS: BP 106/70
--- NOTE | 2017-06-02 02:00 | Progress Note ---
DATE: 06/01/2017 CARDIOLOGY PROGRESS NOTE SUBJECTIVE: The patient's discharge was canceled as she has developed rapid atrial fibrillation this afternoon. She had some congestion and shortness of breath, but denies chest pain. OBJECTIVE: VITAL SIGNS: Blood pressure 127/57, pulse 120, respirations 21, afebrile, and oxygen saturation on room air is 96%. NECK: Supple. Jugular venous pressure elevated. LUNGS: With few rhonchi and expiratory wheezes. CARDIAC: Irregularly irregular rhythm. Rapid rate. Normal S1, S2. EXTREMITIES: With trace edema bilaterally. LABORATORY DATA: Sodium 144, potassium 4, bicarbonate 43, BUN 31, and creatinine 1. IMPRESSION: 1. Paroxysmal atrial fibrillation with rapid ventricular response. 2. Chronic obstructive pulmonary disease exacerbation. 3. Acute bronchospasm. 4. Metabolic alkalosis. 5. Hypertensive heart disease. 6. Acute myocardial infarction. 7. Acute on chronic diastolic congestive heart failure. PLAN: 1. Additional diltiazem. 2. Titrate beta román. 3. Diurese. 4. Recheck laboratory studies. 5. Cardioembolic prophylaxis with apixaban. Jan Moreno M.D. DR: MINA JOB#: [id number] CC:
[2017-06-02] MEDS: cefTRIAXone 1 GM in D5W 55 ML IVPB SCH (03:05)
--- NOTE | 2017-06-02 03:15 | Discharge Summary ---
DATE OF ADMISSION: 05/27/2017 DATE OF DISCHARGE: 06/02/2017 PERTINENT HISTORY: The patient admitted with cough, wheezing, atrial fibrillation, and ground level fall. The patient has a history of prior CVA and COPD. PERTINENT PHYSICAL FINDINGS: GENERAL: The patient is alert, weak. HEENT: Oral mucosa is moist. Atraumatic. NECK: No adenopathy. LUNGS: Few faint rhonchi. HEART: Rhythm is atrial fibrillation. ABDOMEN: Soft without organomegaly. EXTREMITIES: Show trace edema. Degenerative changes in the knees. NEUROLOGIC: She is alert, dysarthric. She moves all extremities, but is weak on both sides. There is subtle facial asymmetry. COURSE IN THE HOSPITAL: The patient had exacerbation of COPD requiring steroids and nebulizer treatment. She had atrial fibrillation with rapid ventricular response and Dr. Moreno adjusted the beta-blockers and medications for the above. She had elevated troponin consistent with a non-ST elevation myocardial infarction. She was treated for congestive heart failure. She developed acute kidney injury likely secondary to diuresis, which improved with holding diuretics. She also had a swallow evaluation and was placed on a pureed diet. With the above treatment, her condition stabilized. On the day of discharge, the patient had stable vital signs. Lungs clear. Heart, regular rhythm. Atrial fibrillation controlled. Abdomen was soft. Extremities showed trace edema. She had no distress. She was discharged in improved condition, but chronically ill back to her facility. FINAL DIAGNOSES: 1. Non ST-elevation myocardial infarction. 2. Atrial fibrillation with rapid ventricular response. 3. Chronic obstructive pulmonary disease, secondary to cigarette smoking with acute exacerbation and bronchospasm. 4. Acute on chronic respiratory failure with hypoxemia and hypercarbia. 5. Congestive heart failure, acute on chronic with diastolic dysfunction. 6. Tricuspid regurgitation and pulmonary hypertension. 7. History of prior cerebrovascular accident. 8. Anemia. DISCHARGE DISPOSITION: On no added salt, pureed diet. MEDICATIONS: Per the discharge medication list. FOLLOWUP: Follow up by Dr. Bowen in the facility. Pastor Bowen M.D. DR: Gurvinder JOB#: [id number] CC: ONESIMO
[2017-06-02 04:46] VITALS: BP 135/75
[2017-06-02] MEDS: NovoLOG Insulin Flexpen SUBQ SCH ×3 (06:06→16:30)
[2017-06-02 08:00] VITALS: BP 119/58
[2017-06-02 08:11] LABS: EOSINOPHILS % (AUTO) 0.3 % (0.0-3.0); LYMPHOCYTES % (AUTO) 6.8 % (20.0-45.0); MEAN CORPUSCULAR HEMOGLOBIN 31.7 PG (27.0-31.0); MEAN CORPUSCULAR HGB CONC 29.2 G/DL (32.0-36.0); MEAN CORPUSCULAR VOLUME 109 FL (80-99); MEAN PLATELET VOLUME 5.7 FL (6.5-10.1); MONOCYTES % (AUTO) 9.1 % (1.0-10.0); NEUTROPHILS % (AUTO) 82.8 % (45.0-75.0); PLATELET COUNT 356 K/UL (150-450); RED BLOOD COUNT 3.35 M/UL (4.20-5.40); RED CELL DISTRIBUTION WIDTH 14.2 % (11.6-14.8)
[2017-06-02 08:22] LABS: CALCIUM 8.8 MG/DL (8.5-10.1); CHLORIDE 101 MMOL/L (98-107); CREATININE 0.9 MG/DL (0.55-1.30); POTASSIUM 3.6 MMOL/L (3.5-5.1); SODIUM 146 MMOL/L (136-145)
[2017-06-02 08:25] LABS: CARBON DIOXIDE > 45 MMOL/L (21-32)
[2017-06-02] MEDS ORDERED: Furosemide 40mg tab ORAL SCH (09:00)
[2017-06-02] MEDS: Eliquis 2.5mg tablet ORAL SCH (09:17)
[2017-06-02] MEDS: Solu-MEDROL 40mg Inj IVP SCH (09:18)
[2017-06-02] MEDS: Azithromycin 250mg tab ORAL SCH (09:18)
[2017-06-02] MEDS: Docusate 100mg cap ORAL SCH (09:18)
[2017-06-02] MEDS: Spironolactone 25mg tab ORAL SCH (09:18)
[2017-06-02] MEDS: Metoprolol 25mg tab ORAL SCH (09:28)
[2017-06-02] MEDS: Vancomycin 1gm/D5W 275ml IVPB SCH ×2 (09:29)
[2017-06-02 12:00] VITALS: BP 132/72
[2017-06-02] MEDS ORDERED: METOPROLOL SUCC25 MG ORAL (14:10)
--- NOTE | 2017-06-02 14:13 | General Progress Note ---
Assessment/Plan Problem List: (1) Hyperkalemia ICD Codes: E87.5 - Hyperkalemia SNOMED: 96073309 (2) SITA (acute kidney injury) ICD Codes: N17.9 - Acute kidney failure, unspecified SNOMED: 74275843 (3) Non-STEMI (non-ST elevated myocardial infarction) ICD Codes: I21.4 - Non-ST elevation (NSTEMI) myocardial infarction SNOMED: 839618316 (4) COPD exacerbation ICD Codes: J44.1 - Chronic obstructive pulmonary disease with (acute) exacerbation SNOMED: 157952985642102 (5) Atrial fibrillation with rapid ventricular response ICD Codes: I48.91 - Unspecified atrial fibrillation SNOMED: 213800574762491 (6) Fall ICD Codes: W19.XXXA - Unspecified fall, initial encounter SNOMED: 2023360, 515880844 Qualifiers: Qualified Codes: W19.XXXA - Unspecified fall, initial encounter (7) Hypotension ICD Codes: I95.9 - Hypotension, unspecified SNOMED: 86608225 (8) Failure to thrive ICD Codes: R62.51 - Failure to thrive SNOMED: 78572956 Assessment/Plan discharge planned and dictated 06/01 but cancelled as hr 125, increase diltiazem per cardiology continue steroids, hhn this is late entry for Subjective Constitutional: Reports: weakness HEENT: Reports: no symptoms Cardiovascular: Reports: irregular heart rate Respiratory: Reports: shortness of breath Gastrointestinal/Abdominal: Reports: no symptoms Genitourinary: Reports: incontinence Neurologic/Psychiatric: Reports: pre-existing deficit Endocrine: Reports: no symptoms Hematologic/Lymphatic: Reports: anemia Allergies: Coded Allergies: No Known Allergies (Unverified , 06/05/14) Objective Last 24 Hour Vital Signs Date Time Temp Pulse Resp B/P (MAP) Pulse Ox O2 Delivery O2 Flow Rate FiO2 06/02/17 12:32 77 132/72 06/02/17 12:00 97.5 77 20 132/72 95 Room Air 06/02/17 12:00 80 06/02/17 09:28 84 119/59 06/02/17 08:00 66 06/02/17 08:00 97.7 84 18 119/58 95 Room Air 06/02/17 07:30 Nasal Cannula 2.0 28 06/02/17 07:30 99 Nasal Cannula 2.0 28 06/02/17 06:23 82 135/75 06/02/17 04:46 94.6 83 18 135/75 100 Room Air 06/02/17 04:00 74 06/02/17 00:40 96.4 92 18 106/70 90 Room Air 06/02/17 00:25 85 110/72 06/02/17 00:00 89 06/01/17 21:45 108 132/62 06/01/17 21:44 108 132/62 06/01/17 20:35 98.2 98 18 132/62 94 Room Air 06/01/17 20:00 91 06/01/17 19:44 99 Nasal Cannula 2.0 28 06/01/17 19:44 Nasal Cannula 2.0 28 06/01/17 18:36 125 127/75 06/01/17 16:00 97.8 105 20 127/75 99 Nasal Cannula 2.0 06/01/17 16:00 103 06/01/17 14:13 125 136/79 Laboratory Tests 06/02/17 07:15: White Blood Count 13.0H, Red Blood Count 3.35L, Hemoglobin 10.6L, Hematocrit 36.4L, Mean Corpuscular Volume 109H, Mean Corpuscular Hemoglobin 31.7H, Mean Corpuscular Hemoglobin Concent 29.2L, Red Cell Distribution Width 14.2, Platelet Count 356, Mean Platelet Volume 5.7L, Neutrophils (%) (Auto) 82.8H, Lymphocytes (%) (Auto) 6.8L, Monocytes (%) (Auto) 9.1, Eosinophils (%) (Auto) 0.3, Basophils (%) (Auto) 1.0, Sodium Level 146H, Potassium Level 3.6, Chloride Level 101, Carbon Dioxide Level > 45*H, Blood Urea Nitrogen 24H, Creatinine 0.9 , Estimat Glomerular Filtration Rate , Glucose Level 113H, Calcium Level 8.8, Pro-B-Type Natriuretic Peptide 5250H Height (Feet): 5 Height (Inches): 5.00 Weight (Pounds): 174 General Appearance: confused, mild distress EENT: PERRL/EOMI Neck: normal alignment Cardiovascular: regularly irregular Respiratory/Chest: lungs clear, decreased breath sounds Abdomen: non tender, soft Edema: trace edema Neurologic: abnormal television newscast director II-XII EMMANUEL FINLEY Jun 02, 2017 14:13
[2017-06-02] MEDS ORDERED: DILTIAZEM HCL60 MG PO (14:16)
[2017-06-02 16:01] VITALS: BP 114/65
[2017-06-02] MEDS ORDERED: NS 275ml ONE (18:13)
[2017-06-02] MEDS ORDERED: Tubing IV Secondary IV ONE (18:13)
--- NOTE | 2017-06-02 23:15 | Progress Note ---
DATE: 06/02/2017 CARDIOLOGY PROGRESS NOTE SUBJECTIVE: The patient's discharge was postponed yesterday due to recurrent rapid atrial fibrillation. Her antiarrhythmic regimen was readjusted with diltiazem resumed and beta-román dose decreased accordingly. The patient's heart rate control was subsequently achieved. She has no chest pain or shortness of breath. OBJECTIVE: VITAL SIGNS: Blood pressure 132/72, pulse 77, and respirations 20. NECK: Supple. Jugular venous pressure is normal. LUNGS: Clear breath sounds. CARDIAC: Irregularly irregular. Normal S1, S2. A 1/6 systolic apical murmur. ABDOMEN: Soft. EXTREMITIES: No edema. IMPRESSION: 1. Paroxysmal atrial fibrillation. 2. Chronic obstructive pulmonary disease exacerbation. 3. Acute on chronic diastolic congestive heart failure. 4. Paroxysmal bronchospasm. 5. Hypertensive heart disease. 6. Cerebrovascular disease. 7. Acute myocardial infarction. 8. Acute kidney injury. PLAN: 1. Cardiovascular parameters have stabilized on current regimen with follow further as outpatient and titrate and dose adjust for optimization based on clinical parameters. 2. Cardioembolic prophylaxis is on board with apixaban and fall and bleeding risk should be closely monitored. Jan Moreno M.D. DR: MINA JOB#: [id number] CC:
[2017-06-03] MEDS ORDERED: Furosemide 40mg tab ORAL SCH (09:00)
--- NOTE | 2017-06-06 16:15 | Cardiology Report ---
APPROVED REPORT EKG Measurement Heart [id number] IN P89 [id number] Atrial flutter with 4:1 AV conduction Abnormal ECG
== END 2017-06-02 18:14 | DRG 280 ==
LOC: EDBD 01:19 → EMR 02:00 → 2E 02:27 → UNDOADMIN 02:27 → ICU 02:27 → EDBEDREQ 03:22 → EDBEDREQSVC 05:42 → EDBEDREQ 07:37 → 2E 05-28 06:06
DX: I21.4 Non-ST elevation (NSTEMI) myocardial infarction (principal); I50.33 Acute on chronic diastolic (congestive) heart failure; J96.21 Acute and chronic respiratory failure with hypoxia; N17.9 Acute kidney failure, unspecified; E87.3 Alkalosis; E11.22 Type 2 diabetes mellitus with diabetic chronic kidney disease; I95.9 Hypotension, unspecified; E44.1 Mild protein-calorie malnutrition; I48.92 Unspecified atrial flutter; I13.0 Hypertensive heart and chronic kidney disease with heart failure and stage 1 through stage 4 chronic kidney disease, or unspecified chronic kidney disease; I11.9 Hypertensive heart disease without heart failure; J96.22 Acute and chronic respiratory failure with hypercapnia; J44.1 Chronic obstructive pulmonary disease with (acute) exacerbation; I69.951 Hemiplegia and hemiparesis following unspecified cerebrovascular disease affecting right dominant side; Z68.29 Body mass index [BMI] 29.0-29.9, adult; I48.0 Paroxysmal atrial fibrillation; N18.9 Chronic kidney disease, unspecified; F17.210 Nicotine dependence, cigarettes, uncomplicated; R26.9 Unspecified abnormalities of gait and mobility; R29.6 Repeated falls; R62.7 Adult failure to thrive; I69.920 Aphasia following unspecified cerebrovascular disease; I07.1 Rheumatic tricuspid insufficiency; I27.20 Pulmonary hypertension, unspecified
CPT/HCPCS: 36415; 70450; 71010; 74230; 80048; 80053; 80061; 80202; 81001; 82270; 82550; 82553; 82607; 82728; 82962; 83540; 83550; 83735; 83880; 84165; 84439; 84443; 84484; 85007; 85025; 85730; 87040; 87081; 87086; 87181; 92610; 93005; 93306; 93970; 94640; 94664; 94760; J1815; J2405; J8499

== ENCOUNTER 2018-06-25 19:24 | Inpatient (IN) | payer MEDICARE, MEDICAID ==
[~2018-06-25] VITALS: Ht 167.6 cm; Wt 80.7 kg
[~2018-06-25 19:24] MED LIST changes: +ALBUTEROL2.5 MG/3 M INH; +ALDACTONE25 MG ORAL; +ASPIR 8181 MG ORAL; +COLACE100 MG ORAL; +DIAMOX SEQUELS500 MG ORAL; +DILTIAZEM HCL60 MG PO; +ELIQUIS2.5 MG ORAL; +FUROSEMIDE40 MG ORAL; +GABAPENTIN300 MG ORAL; +KENALOG 0.5% CR15 GM APPLIC; +METOPROLOL TART25 MG ORAL; +METOPROLOL TART50 MG ORAL; +MIRALAX17 G2 ORAL; +PEPCID20 MG ORAL; +PREDNISONE10 M2 PO; +PRO-STAT LIQUID30 ML ORAL
[2018-06-25 19:30] VITALS: BP 95/47
[2018-06-25] MEDS ORDERED: VITAMIN C500 M1 ORAL (19:32)
[2018-06-25] MEDS ORDERED: FERROUS SULFAT325 MG ORAL (19:32)
[2018-06-25] MEDS ORDERED: ARTIFICIAL TEAR15 ML BOTH EYES (19:32)
[2018-06-25] MEDS ORDERED: NAPROXEN375 M2 ORAL (19:32)
[2018-06-25] MEDS ORDERED: PRO-STAT LIQUID30 ML ORAL (19:32)
[2018-06-25] MEDS ORDERED: Ipratropium 0.02% Inh Soln 2.5ml UD HHN ONE (19:45)
[2018-06-25] MEDS ORDERED: Albuterol ud Inhalation HHN ONE (19:45)
--- NOTE | 2018-06-25 19:57 | Emergency Room Report ---
History of Present Illness General Chief Complaint: Generalized Weakness Source: Patient, Family Member, Medical Record, EMS, PMD - Dr. Jonnie Bowen Present Illness HPI .Mrs. Kessler is a 78 yo female with hx of COPD, atrial fibrillation, CHF, HTN, dyslipidema, CVA, PA, GERD who presents with generalized weakness lethargy. She has been a resident of [facility] for over one year. She uses 2 L [place] oxygen. Daughter notices that she has been drowsy, difficulty to arouse. Patient stated that she felt warm or hot. She did not want the blanket on her. +nonproduction cough. Allergies: Coded Allergies: No Known Allergies (Unverified , 06/05/14) Patient History Limited by: medical condition - due to illness patient gave limited information Past Medical History: see triage record, old chart reviewed Past Surgical History: other - EMR reviewed Pertinent Family History: other - not pertinent to today's persentation Social History: Denies: alcohol use, drug use Last Menstrual Period: 3 decades ago Now: No Reviewed Nursing Documentation: PMH: Agreed; PSxH: Agreed Nursing Documentation-PMH Hx Hypertension: Yes - subsequent non st elevation PA Hx COPD: Yes Hx Cancer: No Hx Neurological Problems: Yes Hx Cerebrovascular Accident: Yes - hemiplegia, left dominant side. Review of Systems All Other Systems: limited - due to patient's current condition, gives limited hx Physical Exam Vital Signs Date Time Temp Pulse Resp B/P (MAP) Pulse Ox O2 Delivery O2 Flow Rate FiO2 06/25/18 19:21 98.4 79 18 108/55 98 Room Air General Appearance: alert, non-toxic, mild distress, other - patient is drowsy , stops talking in middle of sentence, was initally alert on arrival, Chronically Ill Eyes: bilateral eye normal inspection ENT: no angioedema, normal voice, dry mucus membranes Neck: normal inspection, full range of motion Respiratory: no rhonchi, no retraction, no accessory muscle use, decreased breath sounds, other - increase respiratory rate Cardiovascular #1: no murmur, bradycardia, irregularly irregular Gastrointestinal: normal inspection, normal bowel sounds, non tender, soft, no mass Musculoskeletal: normal inspection Neurologic: alert, responsive, other - seems to desire to sleep Skin: normal inspection Procedures Critical Care Time Critical Care Time 70 minutes of critical care time excluding procedures were used in the care of the patient. I was concerned for decreased responsive and increased oxygen requirement. I reviewed labs and imaging. I reviewed previous electronic medical record. I updated family member. I spoke with physician technical support consultant. Patient required multiple reassessments. Medical Decision Making Diagnostic Impression: Primary Impression: Acute respiratory failure with hypoxia and hypercapnia Additional Impressions: COPD with acute exacerbation SITA (acute kidney injury) SIRS (systemic inflammatory response syndrome) ER Course Ms. Kessler presents with lethargy, malaise and poor appetite for [address] Bowen PCP consulted me prior to patient's arrival. 1. acute respiratory failure with hypoxia and hypercapnia, addressed with albuterol, atrovent nebs, IV steroids, IV antibiotics, I provided BIPAP settings to respiratory therapist, patient's level of responsiveness did improve while on BiBAP, she is tolerating BIPAP well comfortably, speaking full sentences 2. SITA elevated BUN/creatinine prerenal injury due to hypovolemia vs sepsis in setting of diuretic use. Patient received prudent NS boluses of 500 ml each in light of hx of CHF, Hyperkalemia addressed with standard treatment, bradycardia immediately resolved upon treatment, initial HR range from 45 bpm to 60 bpm, immediately HR improved to 90 bpm after hyperkalemia treatment 3. SIRS presumed sepsis vs septic shock, elevated WBC, Cefepime initiated in ED , blood pressure improved with IVF, and hyperkalemia treatment, 30 ml/kg bolus per sepsis bundle was held due to hx of CHF, lactic acid is 1.2 Dr. Bowen is aware. He will admit patient to ICU in serious condition. Dr. Feng food and beverage associate also consulted EKG Diagnostic Results Rate: bradycardiac Other Impression Atrial fibrillation slow ventricular rate 60 bpm with long pauses no ST elevation nonspecific T wave abnormality normal axis normal QT interval Chest X-Ray Diagnostic Results Chest X-Ray Diagnostic Results : Chest X-Ray Ordered: Yes # of Views/Limited/Complete: 1 View PA Xray: Interpretation reviewed Interpretation: no consolidation, no effusion, no pneumothorax, no acute cardiopulmonary disease Impression: No acute disease Reevaluation Time: 21:50 Last Vital Signs Date Time Temp Pulse Resp B/P (MAP) Pulse Ox O2 Delivery O2 Flow Rate FiO2 06/25/18 19:21 98.4 79 18 108/55 98 Room Air Status: improved Disposition: ADMITTED INPATIENT Condition: Serious Gemma Cruz MD Jun 25, 2018 19:57
[2018-06-25] MEDS ORDERED: Sodium Chloride 500ML 500 ML IV ONE ×3 (20:00→21:45)
[2018-06-25] MEDS ORDERED: Solu-MEDROL 125mg Inj IVP ONE (20:30)
[2018-06-25 20:33] LABS: BASOPHILS % (AUTO) 0.8 % (0.0-2.0); EOSINOPHILS % (AUTO) 0.1 % (0.0-3.0); HEMATOCRIT 31.2 % (37.0-47.0); HEMOGLOBIN 9.1 G/DL (12.0-16.0); LYMPHOCYTES % (AUTO) 15.6 % (20.0-45.0); MEAN CORPUSCULAR VOLUME 103 FL (80-99); MONOCYTES % (AUTO) 9.9 % (1.0-10.0); NEUTROPHILS % (AUTO) 73.7 % (45.0-75.0); PLATELET COUNT 465 K/UL (150-450); RED BLOOD COUNT 3.04 M/UL (4.20-5.40); RED CELL DISTRIBUTION WIDTH 16.8 % (11.6-14.8); WHITE BLOOD COUNT 16.2 K/UL (4.8-10.8)
[2018-06-25 20:45] VITALS: BP 104/44
[2018-06-25 21:00] LABS: ALANINE AMINOTRANSFERASE 20 U/L (12-78); ALBUMIN 3.5 G/DL (3.4-5.0); ALBUMIN/GLOBULIN RATIO 0.6 (1.0-2.7); ALKALINE PHOSPHATASE 169 U/L (46-116); ANION GAP 4 mmol/L (5-15); ASPARTATE AMINO TRANSFERASE 30 U/L (15-37); BILIRUBIN,TOTAL 0.5 MG/DL (0.2-1.0); BLOOD UREA NITROGEN 58 mg/dL (7-18); CALCIUM 8.4 MG/DL (8.5-10.1); CARBON DIOXIDE 34 MMOL/L (21-32); CHLORIDE 101 MMOL/L (98-107); CREATININE 3.4 MG/DL (0.55-1.30); SODIUM 139 MMOL/L (136-145)
[2018-06-25] MEDS ORDERED: Cefepime HCl 1 GM in D5W 55 ML IVPB ONE (21:00)
[2018-06-25 21:05] LABS: POTASSIUM 8.1 MMOL/L (3.5-5.1)
[2018-06-25] MEDS ORDERED: Insulin Human Regular 100units/ml 3ml IV ONE (21:30)
[2018-06-25] MEDS ORDERED: Sodium Bicarbonate 50ml Carp IV ONE (21:30)
[2018-06-25] MEDS ORDERED: Calcium Gluconate 1gm/10ml vial IVP ONE (21:30)
[2018-06-25] MEDS ORDERED: Sodium Polystyrene Sulfonate 15gm Powder ORAL ONE (21:30)
[2018-06-25 22:00] VITALS: BP 115/52
[2018-06-25 22:30] VITALS: BP 110/61
--- NOTE | 2018-06-25 22:43 | Consultation ---
Consult Note Assessment/Plan dict resp failure, hypercapneic SITA, severe hyperkalemia COPD CHF hx CVA AF on Gio Galvin MD Jun 25, 2018 22:43
[2018-06-25] MEDS ORDERED: Acetaminophen 500mg (ES) tab ORAL PRN (23:00)
[2018-06-25] MEDS ORDERED: Nitroglycerin Subl 0.4mg tab SL PRN (23:00)
[2018-06-25] MEDS ORDERED: Sodium Polystyrene Sulfonate 15gm Powder ORAL SCH (23:00)
[2018-06-25] MEDS ORDERED: Artificial Tears 1.4% Op Soln BOTH EYES PRN (23:00)
[2018-06-25] MEDS ORDERED: Albuterol/Ipratropium 3ml neb HHN PRN (23:00)
[2018-06-25] MEDS ORDERED: Miralax 17gm pkt ORAL PRN (23:00)
[2018-06-25] MEDS ORDERED: Acetaminophen 650 MG SUPP RECTAL PRN ×2 (23:00)
[2018-06-25 23:37] LABS: ANION GAP 5 mmol/L (5-15); BLOOD UREA NITROGEN 58 mg/dL (7-18); CALCIUM 8.6 MG/DL (8.5-10.1); CARBON DIOXIDE 30 MMOL/L (21-32); CHLORIDE 106 MMOL/L (98-107); CREATININE 2.8 MG/DL (0.55-1.30); SODIUM 141 MMOL/L (136-145)
[2018-06-25 23:51] LABS: POTASSIUM 6.6 MMOL/L (3.5-5.1)
[2018-06-26] VITALS (7 sets, daily range): BP systolic 118–134; BP diastolic 60–71
[2018-06-26] MEDS ORDERED: dilTIAZem HCl 60mg tab ORAL SCH
[2018-06-26 00:07] LABS: APPEARANCE,URINE SLIGHTLY CLOUDY; BILIRUBIN, URINE NEGATIVE (NEGATIVE); COLOR,URINE PALE YELLOW; GLUCOSE, URINE (UA) NEGATIVE (NEGATIVE); KETONES,URINE NEGATIVE (NEGATIVE); LEUKOCYTE ESTERASE ,URINE NEGATIVE (NEGATIVE); NITRITE,URINE NEGATIVE (NEGATIVE); PH,URINE 5 (4.5-8.0); PROTEIN,URINE 2+ (NEGATIVE); UROBILINOGEN,URINE NORMAL MG/DL (0.0-1.0)
--- NOTE | 2018-06-26 02:15 | Consultation ---
DATE OF CONSULTATION: 06/25/2018 PULMONARY CONSULTATION HISTORY OF PRESENT ILLNESS: The patient is a 78-year-old woman who comes to the hospital through the emergency department from [facility] for 10 months. She has been short of breath and more lethargic recently according to the daughter. Laboratory studies were done and the paramedics were called. She was found to have respiratory failure and was admitted to intensive care on BiPAP. I was called to see her in consultation. The patient reports that she is a past smoker, but is not aware of any history of lung problems. Records are reviewed. PAST MEDICAL HISTORY: COPD, chronic respiratory failure, CHF, prior IL, prior stroke with left hemiparesis, atrial fibrillation, on chronic anticoagulation, cognitive deficits, hyperlipidemia, gait disorder, osteoarthritis, CHF with diastolic dysfunction, and acid reflux. ALLERGIES: None. MEDICATIONS: Reviewed and reconciled. REVIEW OF SYSTEMS: Cannot be obtained. PHYSICAL EXAMINATION: GENERAL: The patient is alert and responsive. VITAL SIGNS: Stable at this time, but she was transiently bradycardic in the emergency department due to severe hyperkalemia, but responded to treatment. The patient is overweight. HEENT: Head is normocephalic. NECK: No jugular venous distention. CHEST: Has decreased breath sounds without consolidation. CARDIAC: Rhythm is irregular at about 100 per minute. ABDOMEN: Soft and nontender. EXTREMITIES: No clubbing, cyanosis, or edema. LABORATORY AND DIAGNOSTIC DATA: Laboratory studies show potassium is 8.1, BUN 58, creatinine 3.4, blood sugar 122. Troponin slightly elevated at 0.106. ProBNP is elevated at 15,000. Total protein is high at 9.1. White count is high at 16,200, hemoglobin is low at 9.1. Blood gas shows pH 7.23, pCO2 70, pO2 103 on unknown amount of oxygen. Chest x-ray was said to be clear, but I have been unable to see a report or review the image. IMPRESSION: 1. Acute on chronic respiratory failure. 2. Severe hyperkalemia with transient bradycardia. 3. Acute renal failure. 4. History of heart failure. 5. History of stroke with left hemiparesis. 6. Hypertension. 7. Hyperlipidemia. 8. Atrial fibrillation on anticoagulation. PLAN: The patient will be admitted to intensive care with BiPAP treatment. We will give antibiotics in view of the high white count, although source of infection is not clear. The urinalysis is still pending. I will follow closely in the hospital with you. Gio Feng M.D. DR: VIDAL JOB#: [id number] CC: Gio Feng M.D.; Fax#: [phone] EMMANUEL FINLEY M.D. ; FAX#: [phone] [facility]
[2018-06-26] MEDS: Albuterol/Ipratropium 3ml neb HHN SCH ×6 (02:42→23:00)
[2018-06-26] MEDS: Solu-MEDROL 40mg Inj IVP SCH ×2 (02:58→08:32)
--- NOTE | 2018-06-26 04:30 | Consultation ---
DATE OF CONSULTATION: 06/25/2018 CARDIOLOGY CONSULTATION CONSULTING PHYSICIAN: Jan Moreno M.D. REQUESTING PHYSICIAN: Pastor Bowen M.D. REASON FOR CONSULTATION: Rapid atrial fibrillation, respiratory failure, and congestive heart failure. HISTORY OF PRESENT ILLNESS: This 78-year-old female [facility] and has had worsening shortness of breath and lethargy over the past several days. The patient had some abnormal lab studies noted and paramedics were summoned. The patient was transferred to the emergency room where severe respiratory distress and abnormal lab studies were noted and BiPAP support initiated. The patient was also noted to have rapid atrial fibrillation and I have been asked to assist with care. PAST MEDICAL HISTORY: COPD, history of respiratory failure, cerebrovascular disease with left hemiparesis, coronary artery disease with history of myocardial infarction, chronic atrial fibrillation on anticoagulation, history of congestive heart failure, hyperlipidemia, dementia, ataxia, osteoarthritis, and gastroesophageal reflux disease. ALLERGIES: None. MEDICATIONS: Prior to admission, reviewed and reconciled. SOCIAL HISTORY: Prior smoker, pack years not known. No history of alcohol or substance abuse. FAMILY HISTORY: Noncontributory. REVIEW OF SYSTEMS: Presently not obtainable from the patient. Review of available records and prior hospitalization states at this facility forms have been completed and available pertinent data is outlined above. PHYSICAL EXAMINATION: GENERAL: The patient is awake, alert, and responsive on BiPAP support. VITAL SIGNS: Blood pressure 95/47, pulse 52, respirations 18, and afebrile in the emergency room on arrival. Presently, blood pressure 115/52, pulse 88, and respirations 20. NECK: Difficult to assess jugular venous pressure. Some accessory muscle use. LUNGS: Diminished breath sounds. Few rhonchi. HEART: Irregularly irregular rhythm. Normal S1 and S2. No appreciable murmur, but respiratory sounds obscured on exam. ABDOMEN: Soft and nontender. EXTREMITIES: Good pulses. No edema. NEUROLOGIC: With left hemiparesis. LABORATORY DATA: Initial lab notable for troponin 0.106. Pro-natriuretic peptide 15,000. Potassium 8.1, BUN 58, and creatinine 3.4. White count 16.2 and hemoglobin 9.1. ABG - 7.23, 70, and 103. Chest x-ray with no acute process. IMPRESSION: 1. Acute on chronic respiratory failure. 2. COPD exacerbation. 3. Hyperkalemia. 4. Acute renal failure. 5. Atrial fibrillation, chronic with slow ventricular response due to hyperkalemia, now improved. 6. Hypertensive heart disease. 7. Acute on chronic diastolic congestive heart failure. 8. Critical and guarded at this time. 9. Acute myocardial ischemia and possible oex-HD-rgojstutf myocardial infarction. PLAN: 1. Volume resuscitation. 2. Kayexalate. 3. Hold diuretics. 4. Respiratory hygiene, BiPAP support, may need intubation and mechanical ventilation. 5. Follow electrolytes, volume status, cardiorenal parameters, and acid base parameters closely. 6. Trend troponin levels. 7. Empiric antimicrobials. 8. Continue anti-platelet therapy and statin drugs. 9. Hold diltiazem if slow heart rate in this setting should potassium levels remained elevated. Jan Moreno M.D. DR: JENNIFER JOB#: [id number] CC:
[2018-06-26] MEDS: dilTIAZem HCl 60mg tab ORAL SCH ×4 (06:08→23:07)
[2018-06-26 06:11] LABS: HEMATOCRIT 30.4 % (37.0-47.0); HEMOGLOBIN 9.1 G/DL (12.0-16.0); MEAN CORPUSCULAR VOLUME 104 FL (80-99); PLATELET COUNT 447 K/UL (150-450); RED BLOOD COUNT 2.92 M/UL (4.20-5.40); RED CELL DISTRIBUTION WIDTH 16.2 % (11.6-14.8)
[2018-06-26 06:57] LABS: ALANINE AMINOTRANSFERASE 22 U/L (12-78); ALBUMIN 3.1 G/DL (3.4-5.0); ALBUMIN/GLOBULIN RATIO 0.6 (1.0-2.7); ALKALINE PHOSPHATASE 158 U/L (46-116); ANION GAP 8 mmol/L (5-15); ASPARTATE AMINO TRANSFERASE 32 U/L (15-37); BILIRUBIN,TOTAL 0.3 MG/DL (0.2-1.0); BLOOD UREA NITROGEN 49 mg/dL (7-18); CALCIUM 8.6 MG/DL (8.5-10.1); CARBON DIOXIDE 34 MMOL/L (21-32); CHLORIDE 103 MMOL/L (98-107); CREATININE 2.2 MG/DL (0.55-1.30); POTASSIUM 4.7 MMOL/L (3.5-5.1); SODIUM 145 MMOL/L (136-145)
[2018-06-26 07:01] LABS: CKMB 1.3 NG/ML (0.0-3.6)
[2018-06-26 07:02] LABS: CHOLESTEROL 106 MG/DL (< 200); HDL CHOLESTEROL 43 MG/DL (40-60); PHOSPHORUS 4.6 MG/DL (2.5-4.9); TRIGLYCERIDES 73 MG/DL (30-150)
[2018-06-26] MEDS: Heparin 5000 units/ml inj SUBQ SCH ×2 (08:37→21:01)
[2018-06-26] MEDS: Aspirin Baby 81mg ORAL SCH (08:38)
[2018-06-26] MEDS: Metoprolol Succinate XL 25mg tab ORAL SCH (08:39)
[2018-06-26] MEDS: Ascorbic Acid 500mg tab ORAL SCH (08:43)
--- NOTE | 2018-06-26 08:51 | Diagnostic Imaging Report ---
PORTABLE AP UPRIGHT CXR: HISTORY: 78-year-old female with COPD. COMPARISON: Portable CXR is 06/25/2018, 05/27/2017. FINDINGS: Images mildly limited by technique and external artifacts. Allowing for this, there has been no definite significant interval change. There is no confluent lung consolidation or evidence of acute pulmonary edema. Heart size is normal and stable. There is atherosclerotic mural calcification of at least the aortic arch, as before; no abnormal mediastinal widening. No obvious pneumothorax or effusion, allowing for technique. 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 IMPRESSION: No definite acute abnormality or significant interval change.
[2018-06-26] MEDS ORDERED: Cefepime HCl 1 GM in D5W 55 ML IVPB SCH ×2 (09:00→21:00)
[2018-06-26] MEDS: CALCIUM GLUCONATE IV SCH (09:00)
[2018-06-26] MEDS: 1/2 NS IV SCH (09:00)
[2018-06-26] MEDS ORDERED: Eliquis 2.5mg tablet ORAL SCH (09:00)
[2018-06-26] MEDS ORDERED: Furosemide 40mg tab ORAL SCH (09:00)
[2018-06-26 09:07] LABS: ALANINE AMINOTRANSFERASE 24 U/L (12-78); ALBUMIN 2.8 G/DL (3.4-5.0); ALBUMIN/GLOBULIN RATIO 0.5 (1.0-2.7); ALKALINE PHOSPHATASE 145 U/L (46-116); ANION GAP 4 mmol/L (5-15); ASPARTATE AMINO TRANSFERASE 24 U/L (15-37); BILIRUBIN,TOTAL 0.3 MG/DL (0.2-1.0); BLOOD UREA NITROGEN 47 mg/dL (7-18); CALCIUM 8.1 MG/DL (8.5-10.1); CARBON DIOXIDE 36 MMOL/L (21-32); CHLORIDE 106 MMOL/L (98-107); POTASSIUM 4.2 MMOL/L (3.5-5.1); SODIUM 146 MMOL/L (136-145)
--- NOTE | 2018-06-26 10:08 | Pulmonolgy Critical Care Note ---
Critical Care - Asmt/Plan Assessment/Plan: 1. Acute on chronic respiratory failure. 2. Severe hyperkalemia with transient bradycardia. 3. Acute renal failure. 4. History of heart failure. 5. History of stroke with left hemiparesis. 6. Hypertension. 7. Hyperlipidemia. 8. Atrial fibrillation on anticoagulation. weaning off bipap as tolerated IVF monitor K and treatment per renal iv abx dvt prophylaixs Fu echo trend troponins cxr AM prn abg Critical Care - Objective Last 24 Hour Vital Signs Date Time Temp Pulse Resp B/P (MAP) Pulse Ox O2 Delivery O2 Flow Rate FiO2 06/26/18 08:39 79 106/51 06/26/18 08:39 81 19 94 Facial 30 06/26/18 08:00 Bi-pap 06/26/18 07:00 86 18 100 Bi-pap 30 06/26/18 06:56 81 18 97 Facial 30 06/26/18 06:52 30 06/26/18 06:52 82 19 99 Bi-pap 30 06/26/18 06:08 84 112/58 06/26/18 04:46 78 18 100 Facial 30 06/26/18 04:00 Bi-pap 06/26/18 04:00 92 06/26/18 04:00 50 06/26/18 02:58 80 18 100 Bi-pap 30 06/26/18 02:47 78 18 100 Facial 30 06/26/18 02:46 30 06/26/18 02:44 76 18 97 Bi-pap 30 06/26/18 01:50 83 20 100 Facial 30 06/26/18 01:00 88 18 130/60 (83) 100 89 06/26/18 00:52 Bi-pap 50.0 06/26/18 00:41 95 110/54 06/26/18 00:00 Bi-pap 06/26/18 00:00 88 19 125/60 (81) 100 88 06/25/18 23:04 88 24 97 Facial 50 06/25/18 23:00 50 06/25/18 22:53 98.4 93 20 109/73 100 Bi-pap 50 06/25/18 22:35 94 06/25/18 22:30 98.8 89 19 110/61 (77) 98 06/25/18 22:00 88 20 115/52 (73) 99 06/25/18 20:45 98.4 57 20 104/44 100 Nasal Cannula 3.0 32 06/25/18 20:42 66 20 100 Nasal Cannula 3.0 32 06/25/18 20:25 93 22 96 Facial 50 06/25/18 20:11 62 22 Nasal Cannula 3.0 32 06/25/18 20:10 62 22 98 Nasal Cannula 3.0 32 06/25/18 19:30 79 18 Nasal Cannula 3.0 96 06/25/18 19:30 98.4 52 25 95/47 98 Nasal Cannula 3.0 100 06/25/18 19:21 98.4 79 18 108/55 98 Room Air Status: awake Condition: critical Lungs: rhonchi Heart: HR/BP stable Abdomen: soft, non-tender Extremities: no C/C/E, edema Micro: Microbiology Date/Time Source Procedure Growth Status 06/25/18 22:35 Rectum Received Accucheck: 122 Critical Care - Subjective ROS Limited/Unobtainable: Yes Condition: critical FI02: 30 Sputum Amount: None I&O: Intake and Output 06/25/18 06/26/18 19:00 07:00 Intake Total 1160 ml Output Total 1550 ml Balance -390 ml Intake Oral 360 ml IV Total 800 ml Output Urine Total 1550 ml Subjective: on bipap 06/22 TV arond 250-300 no distress wants to take it off sats better no fever no bleeding on IVF positive uop Labs: Current Medications Medications (Trade) Dose Ordered Sig/Kate Route PRN Reason Start Time Stop Time Status Last Admin Dose Admin Acetaminophen (Tylenol) 650 mg Q4H PRN ORAL Mild Pain (Pain Scale 1-3) 06/25/18 23:00 07/25/18 22:59 06/26/18 17:05 Acetaminophen (Tylenol) 650 mg Q4H PRN RECTAL FEVER 06/25/18 23:00 07/25/18 22:59 Albuterol/ Ipratropium (Albuterol/ Ipratropium) 3 ml Q2HR PRN HHN Shortness of Breath 06/25/18 23:00 06/30/18 22:59 Albuterol/ Ipratropium (Albuterol/ Ipratropium) 3 ml Q4HRT HHN 06/26/18 03:00 07/01/18 02:59 06/26/18 10:44 Artificial Tears (Akwa-Tears) 1 drop Q6H PRN BOTH EYES DRY EYES 06/25/18 23:00 07/25/18 22:59 Ascorbic Acid (Vitamin C) 500 mg DAILY ORAL 06/26/18 09:00 07/26/18 08:59 Aspirin (ASA) 81 mg DAILY ORAL 06/26/18 09:00 07/26/18 08:59 Atorvastatin Calcium (Lipitor) 10 mg BEDTIME ORAL 06/26/18 21:00 07/26/18 20:59 06/26/18 21:00 Calcium Gluconate 10 gm/Sodium Chloride 1,100 ml @ 200 mls/hr DAILY IV 06/26/18 09:00 07/26/18 08:59 06/26/18 09:00 Cefepime HCl 1 gm/ Dextrose 55 ml @ 110 mls/hr Q24H IVPB 06/26/18 21:00 07/03/18 20:59 06/26/18 21:00 Dextrose 1,000 ml @ 75 mls/hr [id number] IV 06/26/18 10:30 07/26/18 10:29 06/26/18 23:08 Dextrose (Dextrose 50%) 25 ml Q30M PRN IV Hypoglycemia 06/25/18 23:00 07/25/18 22:59 Dextrose (Dextrose 50%) 50 ml Q30M PRN IV Hypoglycemia 06/25/18 23:00 07/25/18 22:59 Diltiazem HCl (Cardizem) 60 mg EVERY 6 HOURS ORAL 06/26/18 06:00 07/26/18 05:59 06/26/18 23:07 Ferrous Sulfate (Feosol) 325 mg DAILY ORAL 06/26/18 09:00 07/26/18 08:59 Heparin Sodium (Porcine) (Heparin 5000 units/ml) 5,000 units EVERY 12 HOURS SUBQ 06/26/18 09:00 07/26/18 08:59 06/26/18 21:01 Methylprednisolone Sodium Succinate (Solu-MEDROL) 40 mg DAILY IVP 06/27/18 09:00 07/27/18 08:59 Metoprolol Succinate (Toprol XL) 25 mg DAILY ORAL 06/26/18 09:00 07/26/18 08:59 Nitroglycerin (Ntg) 0.4 mg Q5M PRN SL Prn Chest Pain 06/25/18 23:00 07/25/18 22:59 Pantoprazole (Protonix) 40 mg DAILY ORAL 06/26/18 09:00 07/26/18 08:59 Polyethylene Glycol (Miralax) 17 gm DAILYPRN PRN ORAL Constipation 06/25/18 23:00 07/25/18 22:59 Laboratory Tests Test 06/26/18 05:26 06/26/18 07:50 06/26/18 08:00 06/26/18 10:55 White Blood Count 18.0 K/UL (4.8-10.8) H Red Blood Count 2.92 M/UL (4.20-5.40) L Hemoglobin 9.1 G/DL (12.0-16.0) L Hematocrit 30.4 % (37.0-47.0) L Mean Corpuscular Volume 104 FL (80-99) H Mean Corpuscular Hemoglobin 31.2 PG (27.0-31.0) H Mean Corpuscular Hemoglobin Concent 30.0 G/DL (32.0-36.0) L Red Cell Distribution Width 16.2 % (11.6-14.8) H Platelet Count 447 K/UL (150-450) Mean Platelet Volume 5.0 FL (6.5-10.1) L Neutrophils (%) (Auto) % (45.0-75.0) Lymphocytes (%) (Auto) % (20.0-45.0) Monocytes (%) (Auto) % (1.0-10.0) Eosinophils (%) (Auto) % (0.0-3.0) Basophils (%) (Auto) % (0.0-2.0) Differential Total Cells Counted 100 Neutrophils % (Manual) 92 % (45-75) H Lymphocytes % (Manual) 5 % (20-45) L Monocytes % (Manual) 3 % (1-10) Eosinophils % (Manual) 0 % (0-3) Basophils % (Manual) 0 % (0-2) Band Neutrophils 0 % (0-8) Nucleated Red Blood Cells 1 /100 WBC Platelet Estimate Adequate Platelet Morphology Normal Polychromasia 1+ Hypochromasia 2+ Anisocytosis 2+ Macrocytosis 1+ Sodium Level 145 MMOL/L (136-145) 146 MMOL/L (136-145) H Potassium Level 4.7 MMOL/L (3.5-5.1) 4.2 MMOL/L (3.5-5.1) Chloride Level 103 MMOL/L (98-107) 106 MMOL/L (98-107) Carbon Dioxide Level 34 MMOL/L (21-32) H 36 MMOL/L (21-32) H Anion Gap 8 mmol/L (5-15) 4 mmol/L (5-15) L Blood Urea Nitrogen 49 mg/dL (7-18) H 47 mg/dL (7-18) H Creatinine 2.2 MG/DL (0.55-1.30) H 2.0 MG/DL (0.55-1.30) H Estimat Glomerular Filtration Rate mL/min (>60) mL/min (>60) Glucose Level 153 MG/DL (74-106) H 152 MG/DL (74-106) H Calcium Level 8.6 MG/DL (8.5-10.1) 8.1 MG/DL (8.5-10.1) L Phosphorus Level 4.6 MG/DL (2.5-4.9) Magnesium Level 2.1 MG/DL (1.8-2.4) Total Bilirubin 0.3 MG/DL (0.2-1.0) 0.3 MG/DL (0.2-1.0) Aspartate Amino Transf (AST/SGOT) 32 U/L (15-37) 24 U/L (15-37) Alanine Aminotransferase (ALT/SGPT) 22 U/L (12-78) 24 U/L (12-78) Alkaline Phosphatase 158 U/L (46-116) H 145 U/L (46-116) H Total Creatine Kinase 223 U/L (26-308) Creatine Kinase MB 1.3 NG/ML (0.0-3.6) Creatine Kinase MB Relative Index 0.5 Troponin I 0.050 ng/mL (0.000-0.056) 0.046 ng/mL (0.000-0.056) 0.048 ng/mL (0.000-0.056) Total Protein 8.7 G/DL (6.4-8.2) H 8.0 G/DL (6.4-8.2) Albumin 3.1 G/DL (3.4-5.0) L 2.8 G/DL (3.4-5.0) L Globulin 5.6 g/dL 5.2 g/dL Albumin/Globulin Ratio 0.6 (1.0-2.7) L 0.5 (1.0-2.7) L Triglycerides Level 73 MG/DL (30-150) Cholesterol Level 106 MG/DL (< 200) LDL Cholesterol 59 mg/dL (<100) HDL Cholesterol 43 MG/DL (40-60) Cholesterol/HDL Ratio 2.5 (3.3-4.4) L Thyroid Stimulating Hormone (TSH) 0.160 uiU/mL (0.358-3.740) Arterial Blood pH 7.313 (7.350-7.450) Arterial Blood Partial Pressure CO2 70.3 mmHg (35.0-45.0) *H Arterial Blood Partial Pressure O2 76.3 mmHg (75.0-100.0) Arterial Blood HCO3 34.8 mmol/L (22.0-26.0) H Arterial Blood Oxygen Saturation 94.2 % (95-100) L Arterial Blood Base Excess 7.3 (-2-2) H Hal Test Positive Test 06/26/18 18:00 Urine Color Pale yellow Urine Appearance Slightly cloudy Urine pH 6 (4.5-8.0) Urine Specific [place] 1.030 (1.005-1.035) Urine Protein 2+ (NEGATIVE) H Urine Glucose (UA) Negative (NEGATIVE) Urine Ketones Negative (NEGATIVE) Urine Blood 3+ (NEGATIVE) H Urine Nitrite Negative (NEGATIVE) Urine Bilirubin Negative (NEGATIVE) Urine Urobilinogen Normal MG/DL (0.0-1.0) Urine Leukocyte Esterase 1+ (NEGATIVE) H Urine RBC 15-20 /HPF (0 - 2) H Urine WBC 5-10 /HPF (0 - 2) H Urine Squamous Epithelial Cells Moderate /LPF (NONE/OCC) H Urine Bacteria Few /HPF (NONE) Urine Mucus Few /LPF (NONE/OCC) H Keren Bernal DO Jun 26, 2018 10:08
[2018-06-26 18:21] LABS: BILIRUBIN, URINE NEGATIVE (NEGATIVE); COLOR,URINE PALE YELLOW; GLUCOSE, URINE (UA) NEGATIVE (NEGATIVE); KETONES,URINE NEGATIVE (NEGATIVE); LEUKOCYTE ESTERASE ,URINE 1+ (NEGATIVE); NITRITE,URINE NEGATIVE (NEGATIVE); PH,URINE 6 (4.5-8.0); PROTEIN,URINE 2+ (NEGATIVE); UROBILINOGEN,URINE NORMAL MG/DL (0.0-1.0)
[2018-06-26 18:23] LABS: APPEARANCE,URINE SLIGHTLY CLOUDY
--- NOTE | 2018-06-26 19:45 | History and Physical Report ---
DATE OF ADMISSION: 06/25/2018 CHIEF COMPLAINT AND REASON FOR HOSPITALIZATION: The patient admitted with hyperkalemia, azotemia, and respiratory failure. HISTORY OF PRESENT ILLNESS: The patient is well known to me. He has a history of COPD, CHF, CVA, gait disorder, prior [id number] myocardial infarction, osteoarthritis, atrial fibrillation, cognitive deficit, and hyperlipidemia. She resides in the [facility] and she was noted to be altered short of breath and sent to the emergency room where she was found to be hyperkalemia with some bradycardia and in respiratory failure and placed on BiPAP. The patient has had atrial fibrillation in the past with rapid ventricular response, intermittent severe bronchospasms. She has gradually had diuretics increased over the last 6 months. ALLERGIES: None. SURGERIES: Carotid endarterectomy. HABITS: She was a smoker most of his adult life, quit a few years ago. SOCIAL HISTORY: She lives in the [facility]. She has family in the [place] area, but they have not been able to reach him at this time. SYSTEM REVIEW: HEAD EYES, EARS, AND NOSE: She has mild diminished hearing. Vision is good. ENDOCRINE: No known diabetes or thyroid disease. For that, I believe she has had mild glucose intolerance with steroids in the past. PULMONARY: History of COPD and prior bronchospasm. CARDIAC: History of hypertension, prior CA with a troponin leak, atrial fibrillation, CHF, chronic leg edema. GASTROINTESTINAL: She has intermittent vague abdominal discomfort and gastritis. No GI bleeding. GENITOURINARY: She is incontinent of the urine. NEUROLOGIC: History of a CVA with cognitive impairment. HEMATOLOGIC: History of anemia. MEDICATIONS: On transfer from the [facility] include the following medications; Tylenol, albuterol inhalation, Artificial Tears, aspirin 81 mg daily, atorvastatin 10 mg daily, diltiazem 60 mg 4 times a day, DSS 100 mg twice a day, Eliquis 2.5 mg twice a day, ferrous sulfate 325 mg daily, gabapentin 100 mg times a day, Lasix 40 mg daily, metoprolol ER 25 mg daily, naproxen 375 mg twice a day, omeprazole 20 mg daily, Pro-Stat 30 mL daily, triamcinolone cream twice a day as needed, and vitamin C 500 mg daily. that did not include spironolactone, which I believe she is already getting and is not stated on the paperwork. I believe she has had over diuresis and hyperkalemia secondary to spironolactone. PHYSICAL EXAMINATION: GENERAL: The patient is an alert lady, on BiPAP seen in the ICU. VITAL SIGNS: As follows, blood pressure 106/51, pulse 81, respirations 19, O2 saturation 94% on BiPAP. HEAD EYES, EARS, AND NOSE: Sclerae are nonicteric. Ocular motions intact in all directions. Oral mucosa moist. NECK: No adenopathy or thyroid enlargement. LUNGS: Clear. HEART: Rhythm is regular. I hear no murmur. ABDOMEN: Soft without organomegaly or masses. EXTREMITIES: No edema. There are degenerative changes in the knees. NEUROLOGIC: She is alert and responsive. Ocular motions are intact in all directions. There is a questionable facial asymmetry. 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 She moves all extremities. PERTINENT LABORATORY DATA: Initial white count 16.2, repeat 18; hemoglobin 9.1, repeat 9.1. The initial potassium was 8.1 with a BUN 50, creatinine 3.4, BNP 15,609, repeat after treatment; sodium 146, potassium 4.2, BUN 47, creatinine 2, albumin 2.8. IMPRESSION: 1. Respiratory failure. 2. Acute exacerbation of COPD. 3. Hyperkalemia. 4. Acute kidney injury likely secondary to over diuresis with Lasix and spironolactone. 5. Chronic congestive heart failure. 6. History of atrial fibrillation. 7. History of anticoagulation. 8. Leukocytosis. 9. Anemia. 10. History of CVA with cognitive deficit. 11. Osteoarthritis. PLAN: The patient is hydrated gently. She has been treated for hyperkalemia successfully and we will try to get her off BiPAP and nasal cannula back on diet and monitor her laboratories and clinical course carefully her condition. ICU time is 45 minutes. Pastor Bowen M.D. DR: MILDRED JOB#: [id number] CC:
--- NOTE | 2018-06-26 22:15 | Progress Note ---
DATE: 06/26/2018 CARDIOLOGY PROGRESS NOTE SUBJECTIVE: The patient remains in intensive care unit. She is alert and without complaints. OBJECTIVE: VITAL SIGNS: Blood pressure 106/51, pulse 79, respiratory rate 19. On BiPAP overnight, now on face mask saturating 94%. LUNGS: Exam coarse breath sounds. Scattered rhonchi. HEART: Regular rhythm and rate. Normal S1, S2. There is a fourth heart sound. ABDOMEN: Soft, no edema. Monitored rhythm, sinus. Intake and output approximately 400 mL negative. LABORATORY DATA: White count 18, hemoglobin 9.1. Sodium 146, potassium 4.2, bicarb 36. BUN 47, creatinine 2. Troponin 0.046. Albumin 2.8. ABG, pH 7.31, pCO2 70, and pO2 76. IMPRESSION: 1. Acute respiratory failure. 2. Acute on chronic respiratory acidosis. 3. Probable sepsis. 4. Lactic acidosis. 5. Acute myocardial ischemia. 6. Hypovolemia. 7. Dehydration. 8. Acute kidney injury. 9. Atrial fibrillation, rate controlled. PLAN: 1. Antimicrobials. 2. Respiratory hygiene. 3. Hold diuresis. 4. Cautiously hydrate. 5. Monitor respiratory parameters and acid-base parameters. 6. DVT prophylaxis. 7. Skin care. 8. Cardioembolic prophylaxis. Jan Moreno M.D. DR: WESLEY JOB#: [id number] CC: ONESIMO
[2018-06-27] VITALS (16 sets, daily range): BP systolic 111–153; BP diastolic 55–86
[2018-06-27] MEDS: Albuterol/Ipratropium 3ml neb HHN SCH ×5 (03:00→23:00)
[2018-06-27] MEDS: dilTIAZem HCl 60mg tab ORAL SCH ×4 (05:09→23:07)
[2018-06-27 05:26] LABS: HEMATOCRIT 25.9 % (37.0-47.0); HEMOGLOBIN 7.9 G/DL (12.0-16.0); MEAN CORPUSCULAR VOLUME 102 FL (80-99); PLATELET COUNT 419 K/UL (150-450); RED BLOOD COUNT 2.53 M/UL (4.20-5.40); RED CELL DISTRIBUTION WIDTH 17.5 % (11.6-14.8); WHITE BLOOD COUNT 19.7 K/UL (4.8-10.8)
[2018-06-27 05:43] LABS: ALANINE AMINOTRANSFERASE 18 U/L (12-78); ALBUMIN 2.8 G/DL (3.4-5.0); ALBUMIN/GLOBULIN RATIO 0.6 (1.0-2.7); ALKALINE PHOSPHATASE 141 U/L (46-116); ANION GAP 4 mmol/L (5-15); ASPARTATE AMINO TRANSFERASE 19 U/L (15-37); BILIRUBIN,TOTAL 0.2 MG/DL (0.2-1.0); BLOOD UREA NITROGEN 34 mg/dL (7-18); CALCIUM 8.9 MG/DL (8.5-10.1); CARBON DIOXIDE 38 MMOL/L (21-32); CHLORIDE 102 MMOL/L (98-107); CREATININE 1.3 MG/DL (0.55-1.30); POTASSIUM 3.5 MMOL/L (3.5-5.1); SODIUM 143 MMOL/L (136-145)
[2018-06-27] MEDS ORDERED: Solu-MEDROL 40mg Inj IVP SCH (09:00)
--- NOTE | 2018-06-27 09:07 | Pulmonology Progress Note ---
Assessment/Plan Assessment/Plan 1. Acute on chronic respiratory failure. 2. Severe hyperkalemia with transient bradycardia. 3. Acute renal failure. 4. History of heart failure. 5. History of stroke with left hemiparesis. 6. Hypertension. 7. Hyperlipidemia. 8. Atrial fibrillation on anticoagulation. better off BiPAP prabhu diet ABG much better; trial off O2 source of WBC not clear repeat CXR pdg Subjective Constitutional: Reports: fatigue Respiratory: Reports: dry cough; Denies: shortness of breath Cardiovascular: Denies: chest pain Allergies: Coded Allergies: No Known Allergies (Unverified , 06/05/14) Objective Last 24 Hour Vital Signs Date Time Temp Pulse Resp B/P (MAP) Pulse Ox O2 Delivery O2 Flow Rate FiO2 06/27/18 08:00 Nasal Cannula 2.0 06/27/18 08:00 2.0 06/27/18 08:00 98.9 84 28 118/59 100 Nasal Cannula 2.0 06/27/18 07:00 84 28 115/55 100 Nasal Cannula 2.0 06/27/18 06:55 97 22 96 32 06/27/18 06:54 Nasal Cannula 3.0 32 06/27/18 06:54 Nasal Cannula 3.0 32 06/27/18 06:00 82 28 114/56 100 Nasal Cannula 2.0 06/27/18 05:09 98 130/61 06/27/18 05:00 98 28 129/61 100 Nasal Cannula 2.0 06/27/18 04:00 98.1 100 23 126/71 100 Nasal Cannula 2.0 06/27/18 04:00 2.0 06/27/18 04:00 Nasal Cannula 2.0 06/27/18 04:00 100 06/27/18 03:00 Nasal Cannula 06/27/18 03:00 Nasal Cannula 06/27/18 03:00 121 20 123/70 100 Nasal Cannula 2.0 06/27/18 02:00 99 21 130/73 100 Nasal Cannula 2.0 06/27/18 01:00 103 21 113/59 94 Nasal Cannula 2.0 06/27/18 00:00 Nasal Cannula 2.0 06/27/18 00:00 2.0 06/27/18 00:00 102 21 137/67 100 Nasal Cannula 2.0 06/27/18 00:00 124 06/26/18 23:23 Nasal Cannula 06/26/18 23:23 Nasal Cannula 06/26/18 23:07 101 118/70 06/26/18 23:00 98.1 106 21 118/70 100 Nasal Cannula 2.0 06/26/18 22:00 100 21 118/70 100 Nasal Cannula 2.0 06/26/18 21:00 93 20 134/62 100 Nasal Cannula 2.0 06/26/18 20:00 122 06/26/18 20:00 Nasal Cannula 2.0 06/26/18 20:00 101 21 124/70 100 Nasal Cannula 2.0 06/26/18 20:00 2.0 06/26/18 19:27 Nasal Cannula 06/26/18 19:27 Nasal Cannula 06/26/18 19:26 99 20 98 32 06/26/18 19:00 97.9 115 21 120/71 93 Nasal Cannula 2.0 06/26/18 17:03 96 105/56 06/26/18 16:35 101 20 97 32 06/26/18 16:00 Bi-pap 06/26/18 16:00 93 06/26/18 16:00 2.0 06/26/18 14:32 112 22 97 32 06/26/18 14:32 Bi-pap 30 06/26/18 14:32 Bi-pap 30 06/26/18 12:34 97 18 100 32 06/26/18 12:05 83 117/62 06/26/18 12:00 69 06/26/18 12:00 2.0 06/26/18 12:00 Bi-pap 06/26/18 10:43 99 19 95 Bi-pap 30 06/26/18 10:41 78 18 95 Facial 30 06/26/18 10:37 30 06/26/18 10:37 76 18 97 Bi-pap 30 Intake and Output 06/26/18 06/27/18 19:00 07:00 Intake Total 2530 ml 990 ml Output Total 1310 ml 735 ml Balance 1220 ml 255 ml Intake Oral 655 ml 240 ml IV Total 1875 ml 750 ml Output Urine Total 1310 ml 735 ml General Appearance: no acute distress Respiratory/Chest: lungs clear, decreased breath sounds Cardiovascular: tachycardia, arrhythmia Microbiology Date/Time Source Procedure Growth Status 06/25/18 20:25 Blood Blood Culture - Preliminary NO GROWTH AFTER 24 HOURS Resulted 06/25/18 20:15 Blood Blood Culture - Preliminary NO GROWTH AFTER 24 HOURS Resulted 06/26/18 18:00 Indwelling Cath Urine Culture - Preliminary NO GROWTH Resulted 06/25/18 23:45 Indwelling Cath Urine Culture - Preliminary NO GROWTH Resulted 06/25/18 22:35 Rectum Received Laboratory Tests 06/26/18 10:55: Troponin I 0.048 06/26/18 18:00: Urine Color Pale yellow, Urine Appearance Slightly cloudy, Urine pH 6, Urine Specific [place] 1.030, Urine Protein 2+H, Urine Glucose (UA) Negative, Urine Ketones Negative, Urine Blood 3+H, Urine Nitrite Negative, Urine Bilirubin Negative, Urine Urobilinogen Normal, Urine Leukocyte Esterase 1+H, Urine RBC 15- 20H, Urine WBC 5-10H, Urine Squamous Epithelial Cells ModerateH, Urine Bacteria Few, Urine Mucus FewH 06/27/18 04:35: Troponin I 0.036, White Blood Count 19.7H, Red Blood Count 2.53L, Hemoglobin 7.9L, Hematocrit 25.9L, Mean Corpuscular Volume 102H, Mean Corpuscular Hemoglobin 31.1H, Mean Corpuscular Hemoglobin Concent 30.4L, Red Cell Distribution Width 17.5H, Platelet Count 419, Mean Platelet Volume 5.2L, Neutrophils (%) (Auto) , Lymphocytes (%) (Auto) , Monocytes (%) (Auto) , Eosinophils (%) (Auto) , Basophils (%) (Auto) , Differential Total Cells Counted 100, Neutrophils % (Manual) 76H, Lymphocytes % (Manual) 9L, Monocytes % (Manual) 15H, Eosinophils % (Manual) 0, Basophils % (Manual) 0, Band Neutrophils 0, Nucleated Red Blood Cells 1, Platelet Estimate Adequate, Platelet Morphology Normal, Polychromasia 1+, Hypochromasia 3+, Anisocytosis 1+ , Macrocytosis 1+, Sodium Level 143, Potassium Level 3.5, Chloride Level 102, Carbon Dioxide Level 38H, Anion Gap 4L, Blood Urea Nitrogen 34H, Creatinine 1.3 , Estimat Glomerular Filtration Rate , Glucose Level 142H, Calcium Level 8.9, Total Bilirubin 0.2, Aspartate Amino Transf (AST/SGOT) 19, Alanine Aminotransferase (ALT/SGPT) 18, Alkaline Phosphatase 141H, Total Protein 7.6, Albumin 2.8L, Globulin 4.8, Albumin/Globulin Ratio 0.6L 06/27/18 07:20: Arterial Blood pH 7.512H, Arterial Blood Partial Pressure CO2 46.0H, Arterial Blood Partial Pressure O2 119.0H, Arterial Blood HCO3 36.0H, Arterial Blood Oxygen Saturation 99.0, Arterial Blood Base Excess 11.9*H, Hal Test Positive Current Medications Medications (Trade) Dose Ordered Sig/Kate Route PRN Reason Start Time Stop Time Status Last Admin Dose Admin Acetaminophen (Tylenol) 650 mg Q4H PRN ORAL Mild Pain (Pain Scale 1-3) 06/25/18 23:00 07/25/18 22:59 06/26/18 17:05 Acetaminophen (Tylenol) 650 mg Q4H PRN RECTAL FEVER 06/25/18 23:00 07/25/18 22:59 Albuterol/ Ipratropium (Albuterol/ Ipratropium) 3 ml Q2HR PRN HHN Shortness of Breath 06/25/18 23:00 06/30/18 22:59 Albuterol/ Ipratropium (Albuterol/ Ipratropium) 3 ml Q4HRT HHN 06/26/18 03:00 07/01/18 02:59 06/26/18 10:44 Artificial Tears (Akwa-Tears) 1 drop Q6H PRN BOTH EYES DRY EYES 06/25/18 23:00 07/25/18 22:59 Ascorbic Acid (Vitamin C) 500 mg DAILY ORAL 06/26/18 09:00 07/26/18 08:59 Aspirin (ASA) 81 mg DAILY ORAL 06/26/18 09:00 07/26/18 08:59 Atorvastatin Calcium (Lipitor) 10 mg BEDTIME ORAL 06/26/18 21:00 07/26/18 20:59 06/26/18 21:00 Calcium Gluconate 10 gm/Sodium Chloride 1,100 ml @ 200 mls/hr DAILY IV 06/26/18 09:00 07/26/18 08:59 06/26/18 09:00 Cefepime HCl 1 gm/ Dextrose 55 ml @ 110 mls/hr Q24H IVPB 06/26/18 21:00 07/03/18 20:59 06/26/18 21:00 Dextrose 1,000 ml @ 75 mls/hr [id number] IV 06/26/18 10:30 07/26/18 10:29 06/26/18 23:08 Dextrose (Dextrose 50%) 25 ml Q30M PRN IV Hypoglycemia 06/25/18 23:00 07/25/18 22:59 Dextrose (Dextrose 50%) 50 ml Q30M PRN IV Hypoglycemia 06/25/18 23:00 07/25/18 22:59 Diltiazem HCl (Cardizem) 60 mg EVERY 6 HOURS ORAL 06/26/18 06:00 07/26/18 05:59 06/27/18 05:09 Ferrous Sulfate (Feosol) 325 mg DAILY ORAL 06/26/18 09:00 07/26/18 08:59 Heparin Sodium (Porcine) (Heparin 5000 units/ml) 5,000 units EVERY 12 HOURS SUBQ 06/26/18 09:00 07/26/18 08:59 06/26/18 21:01 Methylprednisolone Sodium Succinate (Solu-MEDROL) 40 mg DAILY IVP 06/27/18 09:00 07/27/18 08:59 Metoprolol Succinate (Toprol XL) 25 mg DAILY ORAL 06/26/18 09:00 07/26/18 08:59 Nitroglycerin (Ntg) 0.4 mg Q5M PRN SL Prn Chest Pain 06/25/18 23:00 07/25/18 22:59 Pantoprazole (Protonix) 40 mg DAILY ORAL 06/26/18 09:00 07/26/18 08:59 Polyethylene Glycol (Miralax) 17 gm DAILYPRN PRN ORAL Constipation 06/25/18 23:00 07/25/18 22:59 Gio Feng MD Jun 27, 2018 09:07
[2018-06-27] MEDS: Aspirin Baby 81mg ORAL SCH (09:14)
[2018-06-27] MEDS: Ascorbic Acid 500mg tab ORAL SCH (09:15)
[2018-06-27] MEDS: Metoprolol Succinate XL 25mg tab ORAL SCH (09:15)
[2018-06-27] MEDS: Heparin 5000 units/ml inj SUBQ SCH (09:23)
[2018-06-27] MEDS: CALCIUM GLUCONATE IV SCH (10:25)
[2018-06-27] MEDS: 1/2 NS IV SCH (10:25)
--- NOTE | 2018-06-27 11:53 | Diagnostic Imaging Report ---
Indication: Dyspnea Comparison: 06/26/2018 A single view chest radiograph was obtained. Findings: No definite infiltrate or pulmonary vascular congestion identified. The heart is enlarged. The aorta is mildly enlarged consistent with atherosclerotic vascular disease. The bones are osteopenic. Impression: No acute disease
[2018-06-27] MEDS ORDERED: Nitroglycerin Subl 0.4mg tab SL PRN (13:30)
[2018-06-27] MEDS ORDERED: Eliquis 2.5mg tablet ORAL SCH ×2 (14:00)
[2018-06-27] MEDS ORDERED: Miralax 17gm pkt ORAL PRN (14:00)
[2018-06-27] MEDS ORDERED: Artificial Tears 1.4% Op Soln BOTH EYES PRN (14:00)
[2018-06-27] MEDS ORDERED: Albuterol/Ipratropium 3ml neb HHN PRN (14:00)
[2018-06-27] MEDS ORDERED: Acetaminophen 650 MG SUPP RECTAL PRN (15:00)
--- NOTE | 2018-06-27 15:25 | General Progress Note ---
Assessment/Plan Problem List: (1) Hyperkalemia ICD Codes: E87.5 - Hyperkalemia SNOMED: 32250389 (2) SITA (acute kidney injury) ICD Codes: N17.9 - Acute kidney failure, unspecified SNOMED: 58279044 (3) Acute respiratory failure with hypoxia and hypercapnia ICD Codes: J96.01 - Acute respiratory failure with hypoxia; J96.02 - Acute respiratory failure with hypercapnia SNOMED: 868685682 (4) COPD with acute exacerbation ICD Codes: J44.1 - Chronic obstructive pulmonary disease with (acute) exacerbation; J96.02 - Acute respiratory failure with hypercapnia SNOMED: 097107050 (5) Episode of generalized weakness ICD Codes: R53.1 - Weakness SNOMED: 21410421 (6) SIRS (systemic inflammatory response syndrome) ICD Codes: R65.10 - Systemic inflammatory response syndrome (SIRS) of non- infectious origin without acute organ dysfunction; J96.02 - Acute respiratory failure with hypercapnia SNOMED: 892972156 Assessment/Plan off bipap, no distress, Hb lower may need transfuse, renal func better Subjective Constitutional: Reports: weakness HEENT: Reports: no symptoms Cardiovascular: Reports: no symptoms Respiratory: Reports: shortness of breath Gastrointestinal/Abdominal: Reports: no symptoms Genitourinary: Reports: incontinence Neurologic/Psychiatric: Reports: pre-existing deficit Endocrine: Reports: no symptoms Allergies: Coded Allergies: No Known Allergies (Unverified , 06/05/14) Objective Last 24 Hour Vital Signs Date Time Temp Pulse Resp B/P (MAP) Pulse Ox O2 Delivery O2 Flow Rate FiO2 06/27/18 14:10 67 18 99 Room Air 21 06/27/18 14:03 66 18 91 Room Air 21 06/27/18 14:03 36 06/27/18 13:25 98.5 79 22 115/65 94 06/27/18 12:52 87 18 95 21 06/27/18 12:00 2.0 06/27/18 12:00 102 25 131/86 92 06/27/18 12:00 Nasal Cannula 2.0 06/27/18 12:00 95 06/27/18 11:47 105 153/85 06/27/18 11:00 93 24 131/86 100 Nasal Cannula 2.0 06/27/18 10:40 Room Air 21 06/27/18 10:40 Room Air 21 06/27/18 10:40 92 22 95 21 06/27/18 10:00 95 24 153/85 100 Nasal Cannula 2.0 06/27/18 09:19 87 20 94 21 06/27/18 09:15 88 114/74 06/27/18 09:00 87 24 111/57 100 Nasal Cannula 2.0 06/27/18 08:00 79 06/27/18 08:00 Nasal Cannula 2.0 06/27/18 08:00 2.0 06/27/18 08:00 98.9 84 28 118/59 100 Nasal Cannula 2.0 06/27/18 07:00 84 28 115/55 100 Nasal Cannula 2.0 06/27/18 06:55 97 22 96 32 06/27/18 06:54 Nasal Cannula 3.0 32 06/27/18 06:54 Nasal Cannula 3.0 32 06/27/18 06:00 82 28 114/56 100 Nasal Cannula 2.0 06/27/18 05:09 98 130/61 06/27/18 05:00 98 28 129/61 100 Nasal Cannula 2.0 06/27/18 04:00 98.1 100 23 126/71 100 Nasal Cannula 2.0 06/27/18 04:00 2.0 06/27/18 04:00 Nasal Cannula 2.0 06/27/18 04:00 100 06/27/18 03:00 Nasal Cannula 06/27/18 03:00 Nasal Cannula 06/27/18 03:00 121 20 123/70 100 Nasal Cannula 2.0 06/27/18 02:00 99 21 130/73 100 Nasal Cannula 2.0 06/27/18 01:00 103 21 113/59 94 Nasal Cannula 2.0 06/27/18 00:00 Nasal Cannula 2.0 06/27/18 00:00 2.0 06/27/18 00:00 102 21 137/67 100 Nasal Cannula 2.0 06/27/18 00:00 124 06/26/18 23:23 Nasal Cannula 06/26/18 23:23 Nasal Cannula 06/26/18 23:07 101 118/70 06/26/18 23:00 98.1 106 21 118/70 100 Nasal Cannula 2.0 06/26/18 22:00 100 21 118/70 100 Nasal Cannula 2.0 06/26/18 21:00 93 20 134/62 100 Nasal Cannula 2.0 06/26/18 20:00 122 06/26/18 20:00 Nasal Cannula 2.0 06/26/18 20:00 101 21 124/70 100 Nasal Cannula 2.0 06/26/18 20:00 2.0 06/26/18 19:27 Nasal Cannula 06/26/18 19:27 Nasal Cannula 06/26/18 19:26 99 20 98 32 06/26/18 19:00 97.9 115 21 120/71 93 Nasal Cannula 2.0 06/26/18 17:03 96 105/56 06/26/18 16:35 101 20 97 32 06/26/18 16:00 Bi-pap 06/26/18 16:00 93 06/26/18 16:00 2.0 Intake and Output 06/26/18 06/27/18 19:00 07:00 Intake Total 2530 ml 990 ml Output Total 1310 ml 735 ml Balance 1220 ml 255 ml Intake Oral 655 ml 240 ml IV Total 1875 ml 750 ml Output Urine Total 1310 ml 735 ml Laboratory Tests 06/26/18 18:00: Urine Color Pale yellow, Urine Appearance Slightly cloudy, Urine pH 6, Urine Specific [place] 1.030, Urine Protein 2+H, Urine Glucose (UA) Negative, Urine Ketones Negative, Urine Blood 3+H, Urine Nitrite Negative, Urine Bilirubin Negative, Urine Urobilinogen Normal, Urine Leukocyte Esterase 1+H, Urine RBC 15- 20H, Urine WBC 5-10H, Urine Squamous Epithelial Cells ModerateH, Urine Bacteria Few, Urine Mucus FewH 06/27/18 04:35: White Blood Count 19.7H, Red Blood Count 2.53L, Hemoglobin 7.9L, Hematocrit 25.9L, Mean Corpuscular Volume 102H, Mean Corpuscular Hemoglobin 31.1H, Mean Corpuscular Hemoglobin Concent 30.4L, Red Cell Distribution Width 17.5H, Platelet Count 419, Mean Platelet Volume 5.2L, Neutrophils (%) (Auto) , Lymphocytes (%) (Auto) , Monocytes (%) (Auto) , Eosinophils (%) (Auto) , Basophils (%) (Auto) , Differential Total Cells Counted 100, Neutrophils % ( Manual) 76H, Lymphocytes % (Manual) 9L, Monocytes % (Manual) 15H, Eosinophils % (Manual) 0, Basophils % (Manual) 0, Band Neutrophils 0, Nucleated Red Blood Cells 1, Platelet Estimate Adequate, Platelet Morphology Normal, Polychromasia 1 +, Hypochromasia 3+, Anisocytosis 1+, Macrocytosis 1+, Sodium Level 143, Potassium Level 3.5, Chloride Level 102, Carbon Dioxide Level 38H, Anion Gap 4L , Blood Urea Nitrogen 34H, Creatinine 1.3, Estimat Glomerular Filtration Rate , Glucose Level 142H, Calcium Level 8.9, Total Bilirubin 0.2, Aspartate Amino Transf (AST/SGOT) 19, Alanine Aminotransferase (ALT/SGPT) 18, Alkaline Phosphatase 141H, Troponin I 0.036, Total Protein 7.6, Albumin 2.8L, Globulin 4.8, Albumin/Globulin Ratio 0.6L 06/27/18 07:20: Arterial Blood pH 7.512H, Arterial Blood Partial Pressure CO2 46.0H, Arterial Blood Partial Pressure O2 119.0H, Arterial Blood HCO3 36.0H, Arterial Blood Oxygen Saturation 99.0, Arterial Blood Base Excess 11.9*H, Hal Test Positive Height (Feet): 5 Height (Inches): 6.00 Weight (Pounds): 179 General Appearance: no apparent distress, alert EENT: normal ENT inspection Neck: non-tender Cardiovascular: normal rate, regular rhythm Respiratory/Chest: expiratory wheezing Abdomen: non tender, soft Edema: no edema noted Arm (L) 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
[2018-06-27 16:43] LABS: MEAN CORPUSCULAR VOLUME 102 FL (80-99); PLATELET COUNT 410 K/UL (150-450); RED BLOOD COUNT 2.63 M/UL (4.20-5.40); WHITE BLOOD COUNT 17.9 K/UL (4.8-10.8)
--- NOTE | 2018-06-27 19:00 | Progress Note ---
DATE: 06/27/2018 CARDIOLOGY PROGRESS NOTE SUBJECTIVE: The patient feels much better. Less congested. Better appetite. OBJECTIVE: VITAL SIGNS: Blood pressure 118/59, pulse 84, and respirations 28. Monitored rhythm, atrial fibrillation. She is off BiPAP support. LUNGS: Coarse breath sounds. Scattered rhonchi. HEART: Irregularly irregular rhythm. Normal S1, S2. A 1/6 systolic apical murmur. ABDOMEN: Soft. EXTREMITIES: Trace edema. LABORATORY DATA: Cultures remain negative. Labs notable for white count 19.7 and hemoglobin 7.9. Potassium 3.5, BUN 34, and creatinine 1.3. Troponin is 0.036. Albumin 2.8. ABG, pH 7.51, pCO2 46, and pO2 119. IMPRESSION: 1. Acute respiratory failure, resolving. 2. Acute on chronic respiratory acidosis, resolved. 3. Leukocytosis, possibly due to sepsis, source unclear. 4. Anemia due to chronic disease and chronic kidney disease. 5. Acute on chronic diastolic congestive heart failure, better compensated. 6. Acute myocardial ischemia, resolved. 7. Paroxysmal atrial fibrillation, now rate controlled. 8. Lactic acidosis, resolved. PLAN: 1. No additional diuresis at this time. 2. Respiratory hygiene. 3. Antimicrobials. 4. Discontinue intravenous fluids as oral intake improves. Jan Moreno M.D. DR: MINA JOB#: [id number] CC:
[2018-06-27] MEDS ORDERED: Cefepime HCl 1 GM in D5W 55 ML IVPB SCH (21:00)
[2018-06-28] VITALS: BP 130/76
[2018-06-28] MEDS: Albuterol/Ipratropium 3ml neb HHN SCH ×6 (03:00→22:45)
[2018-06-28 04:00] VITALS: BP 125/65
[2018-06-28 05:07] LABS: HEMATOCRIT 25.9 % (37.0-47.0); HEMOGLOBIN 7.9 G/DL (12.0-16.0); MEAN CORPUSCULAR VOLUME 101 FL (80-99); PLATELET COUNT 401 K/UL (150-450); RED BLOOD COUNT 2.56 M/UL (4.20-5.40); WHITE BLOOD COUNT 18.4 K/UL (4.8-10.8)
[2018-06-28 05:28] LABS: ANION GAP 5 mmol/L (5-15); BLOOD UREA NITROGEN 19 mg/dL (7-18); CALCIUM 10.3 MG/DL (8.5-10.1); CARBON DIOXIDE 37 MMOL/L (21-32); CHLORIDE 98 MMOL/L (98-107); POTASSIUM 3.3 MMOL/L (3.5-5.1); SODIUM 139 MMOL/L (136-145)
[2018-06-28] MEDS: dilTIAZem HCl 60mg tab ORAL SCH ×3 (06:04→17:23)
[2018-06-28 08:00] VITALS: BP 140/80
[2018-06-28] MEDS: Solu-MEDROL 40mg Inj IVP SCH (08:32)
[2018-06-28] MEDS: Metoprolol Succinate XL 25mg tab ORAL SCH (08:33)
[2018-06-28] MEDS: Ascorbic Acid 500mg tab ORAL SCH (08:33)
[2018-06-28] MEDS: Eliquis 2.5mg tablet ORAL SCH ×2 (08:34→17:24)
[2018-06-28] MEDS ORDERED: CALCIUM GLUCONATE IV SCH (09:00)
[2018-06-28] MEDS ORDERED: Eliquis 2.5mg tablet ORAL SCH (09:00)
[2018-06-28] MEDS ORDERED: 1/2 NS IV SCH (09:00)
--- NOTE | 2018-06-28 11:22 | Pulmonology Progress Note ---
Assessment/Plan Assessment/Plan 1. Acute on chronic respiratory failure. 2. Severe hyperkalemia with transient bradycardia. 3. Acute renal failure. 4. History of heart failure. 5. History of stroke with left hemiparesis. 6. Hypertension. 7. Hyperlipidemia. 8. Atrial fibrillation on anticoagulation. 9. Anemia better sat ok on 2 liters prabhu diet anemia source of WBC not clear repeat CXR clear Subjective Constitutional: Denies: fever Respiratory: Denies: shortness of breath Allergies: Coded Allergies: No Known Allergies (Unverified , 06/05/14) Objective Last 24 Hour Vital Signs Date Time Temp Pulse Resp B/P (MAP) Pulse Ox O2 Delivery O2 Flow Rate FiO2 06/28/18 08:56 71 20 99 Nasal Cannula 2.0 28 06/28/18 08:55 Nasal Cannula 2.0 28 06/28/18 08:55 94 Nasal Cannula 2.0 28 06/28/18 08:54 73 20 94 Nasal Cannula 2.0 28 06/28/18 08:33 80 140/80 06/28/18 08:00 Nasal Cannula 2.0 06/28/18 08:00 79 06/28/18 08:00 98.6 80 18 140/80 98 Nasal Cannula 2.0 06/28/18 06:04 75 149/71 06/28/18 06:00 Room Air 06/28/18 04:00 75 06/28/18 04:00 99.5 74 20 125/65 92 Room Air 06/28/18 04:00 Room Air 06/28/18 03:32 Room Air 21 06/28/18 03:32 Room Air 06/28/18 00:00 Room Air 06/28/18 00:00 106 06/28/18 00:00 98.3 118 20 130/76 92 Room Air 06/27/18 23:07 118 130/76 06/27/18 23:00 Room Air 21 06/27/18 23:00 Room Air 21 06/27/18 20:11 117 18 99 Room Air 21 06/27/18 20:00 98.3 98 20 139/75 90 Room Air 06/27/18 20:00 97 06/27/18 20:00 Room Air 06/27/18 20:00 77 18 93 Room Air 21 06/27/18 18:36 83 119/71 06/27/18 16:00 99.2 88 20 119/71 94 06/27/18 16:00 83 06/27/18 16:00 Nasal Cannula 2.0 06/27/18 14:10 67 18 99 Room Air 21 06/27/18 14:03 66 18 91 Room Air 21 06/27/18 14:03 36 06/27/18 13:25 98.5 79 22 115/65 94 06/27/18 12:52 87 18 95 21 06/27/18 12:00 2.0 06/27/18 12:00 102 25 131/86 92 06/27/18 12:00 Nasal Cannula 2.0 06/27/18 12:00 95 06/27/18 11:47 105 153/85 Intake and Output 06/27/18 06/28/18 19:00 07:00 Intake Total 2114.667 ml 755 ml Output Total 2855 ml 2100 ml Balance -740.333 ml -1345 ml Intake Oral 200 ml 100 ml IV Total 1914.667 ml 655 ml Output Urine Total 2855 ml 2100 ml General Appearance: no acute distress HEENT: atraumatic Respiratory/Chest: lungs clear, decreased breath sounds Cardiovascular: normal rate Microbiology Date/Time Source Procedure Growth Status 06/25/18 20:25 Blood Blood Culture - Preliminary NO GROWTH AFTER 48 HOURS Resulted 06/25/18 20:15 Blood Blood Culture - Preliminary NO GROWTH AFTER 48 HOURS Resulted 06/25/18 22:35 Nasal Nares MRSA Culture - Final NO METHICILLIN RESISTANT STAPH AUREUS... Complete 06/26/18 18:00 Indwelling Cath Urine Culture - Preliminary NO GROWTH AFTER 24 HOURS Resulted 06/25/18 23:45 Indwelling Cath Urine Culture - Preliminary Lactobacillus Species Resulted 06/25/18 22:35 Rectum - Final NO CARBAPENEM-RESISTANT ENTEROBACTERI... Complete 06/25/18 22:35 Rectum VRE Culture - Final NO VANCOMYCIN RESISTANT ENTEROCOCCUS ... Complete Laboratory Tests 06/27/18 16:00: White Blood Count 17.9H, Red Blood Count 2.63L, Hemoglobin 8.0L, Hematocrit 27.0L, Mean Corpuscular Volume 102H, Mean Corpuscular Hemoglobin 30.4, Mean Corpuscular Hemoglobin Concent 29.7L, Red Cell Distribution Width 17.0H, Platelet Count 410, Mean Platelet Volume 5.0L, Neutrophils (%) (Auto) , Lymphocytes (%) (Auto) , Monocytes (%) (Auto) , Eosinophils (%) (Auto) , Basophils (%) (Auto) , Differential Total Cells Counted 100, Neutrophils % ( Manual) 89H, Lymphocytes % (Manual) 9L, Monocytes % (Manual) 2, Eosinophils % ( Manual) 0, Basophils % (Manual) 0, Band Neutrophils 0, Platelet Estimate Adequate, Platelet Morphology Normal, Polychromasia 1+, Hypochromasia 2+, Anisocytosis 1+, Macrocytosis 1+, Prothrombin Time 10.3, Prothromb Time International Ratio 1.0 06/28/18 04:10: White Blood Count 18.4H, Red Blood Count 2.56L, Hemoglobin 7.9L, Hematocrit 25.9L, Mean Corpuscular Volume 101H, Mean Corpuscular Hemoglobin 30.9, Mean Corpuscular Hemoglobin Concent 30.5L, Red Cell Distribution Width 17.0H, Platelet Count 401, Mean Platelet Volume 5.1L, Neutrophils (%) (Auto) , Lymphocytes (%) (Auto) , Monocytes (%) (Auto) , Eosinophils (%) (Auto) , Basophils (%) (Auto) , Differential Total Cells Counted 100, Neutrophils % ( Manual) 83H, Lymphocytes % (Manual) 12L, Monocytes % (Manual) 5, Eosinophils % ( Manual) 0, Basophils % (Manual) 0, Band Neutrophils 0, Platelet Estimate Adequate, Platelet Morphology Normal, Hypochromasia 3+, Anisocytosis 1+, Macrocytosis 1+, Nucleated Red Blood Cells 1, Sodium Level 139, Potassium Level 3.3L, Chloride Level 98, Carbon Dioxide Level 37H, Anion Gap 5, Blood Urea Nitrogen 19H, Creatinine 1.0, Estimat Glomerular Filtration Rate , Glucose Level 125H, Calcium Level 10.3H Current Medications Medications (Trade) Dose Ordered Sig/Kate Route PRN Reason Start Time Stop Time Status Last Admin Dose Admin Acetaminophen (Tylenol) 650 mg Q4H PRN ORAL Mild Pain (Pain Scale 1-3) 06/27/18 15:00 07/25/18 22:59 06/28/18 06:06 Acetaminophen (Tylenol) 650 mg Q4H PRN RECTAL FEVER (temp>100.5F) 06/27/18 15:00 07/25/18 22:59 Albuterol/ Ipratropium (Albuterol/ Ipratropium) 3 ml Q2H PRN HHN Shortness of Breath 06/27/18 14:00 07/02/18 13:59 Albuterol/ Ipratropium (Albuterol/ Ipratropium) 3 ml Q4HRT HHN 06/27/18 15:00 07/01/18 02:59 06/28/18 08:54 Apixaban (Eliquis) 2.5 mg BID ORAL 06/28/18 09:00 07/28/18 08:59 06/28/18 08:34 Artificial Tears (Akwa-Tears) 1 drop Q6H PRN BOTH EYES DRY EYES 06/27/18 14:00 07/25/18 13:59 Ascorbic Acid (Vitamin C) 500 mg DAILY ORAL 06/28/18 09:00 07/26/18 08:59 06/28/18 08:33 Atorvastatin Calcium (Lipitor) 10 mg BEDTIME ORAL 06/27/18 21:00 07/26/18 20:59 06/27/18 21:05 Cefepime HCl 1 gm/ Dextrose 55 ml @ 110 mls/hr Q24H IVPB 06/27/18 21:00 07/03/18 20:59 06/27/18 21:07 Dextrose 1,000 ml @ 50 mls/hr Q20H IV 06/27/18 15:32 07/27/18 15:31 06/28/18 06:08 Dextrose (Dextrose 50%) 25 ml Q30M PRN IV Hypoglycemia 06/27/18 13:30 07/25/18 22:59 Dextrose (Dextrose 50%) 50 ml Q30M PRN IV Hypoglycemia 06/27/18 13:30 07/25/18 22:59 Diltiazem HCl (Cardizem) 60 mg EVERY 6 HOURS ORAL 06/27/18 18:00 07/26/18 05:59 06/28/18 06:04 Methylprednisolone Sodium Succinate (Solu-MEDROL) 40 mg DAILY IVP 06/28/18 09:00 07/27/18 08:59 06/28/18 08:32 Metoprolol Succinate (Toprol XL) 25 mg DAILY ORAL 06/28/18 09:00 07/26/18 08:59 06/28/18 08:33 Nitroglycerin (Ntg) 0.4 mg Q5M PRN SL Prn Chest Pain 06/27/18 13:30 07/25/18 22:59 Pantoprazole (Protonix) 40 mg BID ORAL 06/27/18 18:00 07/27/18 17:59 06/28/18 08:33 Polyethylene Glycol (Miralax) 17 gm DAILYPRN PRN ORAL Constipation 06/27/18 14:00 07/25/18 13:59 Gio Feng MD Jun 28, 2018 11:22
[2018-06-28 12:00] VITALS: BP 133/65
[2018-06-28 16:00] VITALS: BP 115/67
--- NOTE | 2018-06-28 18:48 | General Progress Note ---
Assessment/Plan Problem List: (1) Hyperkalemia ICD Codes: E87.5 - Hyperkalemia SNOMED: 76236356 (2) SITA (acute kidney injury) ICD Codes: N17.9 - Acute kidney failure, unspecified SNOMED: 25016160 (3) Acute respiratory failure with hypoxia and hypercapnia ICD Codes: J96.01 - Acute respiratory failure with hypoxia; J96.02 - Acute respiratory failure with hypercapnia SNOMED: 411045088 (4) COPD with acute exacerbation ICD Codes: J44.1 - Chronic obstructive pulmonary disease with (acute) exacerbation; J96.02 - Acute respiratory failure with hypercapnia SNOMED: 118625540 (5) Episode of generalized weakness ICD Codes: R53.1 - Weakness SNOMED: 56526513 (6) SIRS (systemic inflammatory response syndrome) ICD Codes: R65.10 - Systemic inflammatory response syndrome (SIRS) of non- infectious origin without acute organ dysfunction; J96.02 - Acute respiratory failure with hypercapnia SNOMED: 494981996 Assessment/Plan off bipap, no distress, Hb lower may need transfuse, renal func better, replace K, restart diuretics, stop atb Subjective Constitutional: Reports: weakness HEENT: Reports: no symptoms Cardiovascular: Reports: no symptoms Respiratory: Reports: cough, shortness of breath Gastrointestinal/Abdominal: Reports: no symptoms Genitourinary: Reports: incontinence Neurologic/Psychiatric: Reports: pre-existing deficit Endocrine: Reports: no symptoms Hematologic/Lymphatic: Reports: anemia Allergies: Coded Allergies: No Known Allergies (Unverified , 06/05/14) Objective Last 24 Hour Vital Signs Date Time Temp Pulse Resp B/P (MAP) Pulse Ox O2 Delivery O2 Flow Rate FiO2 06/28/18 17:23 68 115/67 06/28/18 16:00 Nasal Cannula 2.0 06/28/18 16:00 99.3 72 18 115/67 99 Nasal Cannula 2.0 06/28/18 16:00 68 06/28/18 15:01 76 20 98 Nasal Cannula 2.0 28 06/28/18 14:48 78 18 99 Nasal Cannula 2.0 28 06/28/18 12:33 91 133/65 06/28/18 12:00 Nasal Cannula 2.0 06/28/18 12:00 68 06/28/18 12:00 98.4 91 18 133/65 98 Nasal Cannula 2.0 06/28/18 11:36 93 20 100 Nasal Cannula 2.0 06/28/18 11:30 94 20 98 Nasal Cannula 2.0 06/28/18 08:56 71 20 99 Nasal Cannula 2.0 06/28/18 08:55 Nasal Cannula 2.0 06/28/18 08:55 94 Nasal Cannula 2.0 06/28/18 08:54 73 20 94 Nasal Cannula 2.0 06/28/18 08:33 80 140/80 06/28/18 08:00 Nasal Cannula 2.0 06/28/18 08:00 79 06/28/18 08:00 98.6 80 18 140/80 98 Nasal Cannula 2.0 06/28/18 06:04 75 149/71 06/28/18 06:00 Room Air 06/28/18 04:00 75 06/28/18 04:00 99.5 74 20 125/65 92 Room Air 06/28/18 04:00 Room Air 06/28/18 03:32 Room Air 21 06/28/18 03:32 Room Air 21 06/28/18 00:00 Room Air 06/28/18 00:00 106 06/28/18 00:00 98.3 118 20 130/76 92 Room Air 06/27/18 23:07 118 130/76 06/27/18 23:00 Room Air 21 06/27/18 23:00 Room Air 21 06/27/18 20:11 117 18 99 Room Air 21 06/27/18 20:00 98.3 98 20 139/75 90 Room Air 06/27/18 20:00 97 06/27/18 20:00 Room Air 06/27/18 20:00 77 18 93 Room Air 21 Intake and Output 06/27/18 06/28/18 19:00 07:00 Intake Total 2114.667 ml 755 ml Output Total 2855 ml 2100 ml Balance -740.333 ml -1345 ml Intake Oral 200 ml 100 ml IV Total 1914.667 ml 655 ml Output Urine Total 2855 ml 2100 ml Laboratory Tests 06/28/18 04:10: White Blood Count 18.4H, Red Blood Count 2.56L, Hemoglobin 7.9L, Hematocrit 25.9L, Mean Corpuscular Volume 101H, Mean Corpuscular Hemoglobin 30.9, Mean Corpuscular Hemoglobin Concent 30.5L, Red Cell Distribution Width 17.0H, Platelet Count 401, Mean Platelet Volume 5.1L, Neutrophils (%) (Auto) , Lymphocytes (%) (Auto) , Monocytes (%) (Auto) , Eosinophils (%) (Auto) , Basophils (%) (Auto) , Differential Total Cells Counted 100, Neutrophils % ( Manual) 83H, Lymphocytes % (Manual) 12L, Monocytes % (Manual) 5, Eosinophils % ( Manual) 0, Basophils % (Manual) 0, Band Neutrophils 0, Nucleated Red Blood Cells 1, Platelet Estimate Adequate, Platelet Morphology Normal, Hypochromasia 3 +, Anisocytosis 1+, Macrocytosis 1+, Sodium Level 139, Potassium Level 3.3L, Chloride Level 98, Carbon Dioxide Level 37H, Anion Gap 5, Blood Urea Nitrogen 19H, Creatinine 1.0, Estimat Glomerular Filtration Rate , Glucose Level 125H, Calcium Level 10.3H Height (Feet): 5 Height (Inches): 6.00 Weight (Pounds): 180 General Appearance: no apparent distress, alert EENT: normal ENT inspection Neck: non-tender, supple Cardiovascular: regular rhythm Respiratory/Chest: lungs clear Abdomen: non tender, soft Extremities: no calf tenderness Edema: no edema noted Arm (L), no edema noted Arm (R), no edema noted Leg (L), no edema noted Leg (R), no edema noted Pedal (L), no edema noted Pedal (R), no edema noted Generalized Pastor Bowen MD Jun 28, 2018 18:48
[2018-06-28] MEDS: Spironolactone 25mg tab ORAL SCH (19:25)
[2018-06-28 20:00] VITALS: BP 121/65
[2018-06-29] VITALS: BP 128/63
--- NOTE | 2018-06-29 01:30 | Progress Note ---
DATE: 06/28/2018 CARDIOLOGY PROGRESS NOTE SUBJECTIVE: The patient has no complaints. Shortness of breath has resolved. She is on 2 liters nasal cannula with good saturations. OBJECTIVE: VITAL SIGNS: Blood pressure 140/80, pulse 80, respiratory rate 20, and afebrile. LUNGS: Diminished breath sounds. No wheezing or rales. HEART: Irregularly irregular rhythm. Normal S1 and S2. A 1/6 systolic apical murmur. ABDOMEN: Soft. EXTREMITIES: Trace edema. NEUROLOGIC: Left-sided weakness. LABORATORY DATA: Monitored rhythm, sinus arrhythmia with frequent PACs, alternating with atrial fibrillation. Chest x-ray with no acute process. ____ persistent leukocytosis. White count 18.4 and hemoglobin 7.9. Sodium 139, potassium 3.3, BUN 19, and creatinine 1. IMPRESSION: 1. Paroxysmal atrial fibrillation. 2. Paroxysmal atrial ectopy. 3. Chronic diastolic congestive heart failure, clinically compensated. 4. Leukocytosis with low grade fevers and no obvious source of infection. 5. Chronic obstructive pulmonary disease. 6. Acute on chronic respiratory acidosis, resolved. 7. Acute respiratory failure with hypoxia, resolved. 8. Hypokalemia. PLAN: 1. Potassium replacement. 2. Respiratory hygiene. 3. Empiric antibiotics. No role for diuresis presently. 4. Cardioembolic prophylaxis with apixaban. 5. Titrate beta-román and diltiazem for optimal blood pressure and rate control of cardiac arrhythmias. Jan Moreno M.D. DR: WILMA JOB#: [id number] CC:
[2018-06-29] MEDS: Albuterol/Ipratropium 3ml neb HHN SCH ×6 (02:56→23:00)
[2018-06-29 04:00] VITALS: BP 131/66
[2018-06-29 05:18] LABS: BASOPHILS % (AUTO) 0.8 % (0.0-2.0); HEMOGLOBIN 8.3 G/DL (12.0-16.0); LYMPHOCYTES % (AUTO) 8.6 % (20.0-45.0); MEAN CORPUSCULAR VOLUME 102 FL (80-99); NEUTROPHILS % (AUTO) 81.6 % (45.0-75.0); PLATELET COUNT 418 K/UL (150-450); RED BLOOD COUNT 2.66 M/UL (4.20-5.40); RED CELL DISTRIBUTION WIDTH 16.4 % (11.6-14.8); WHITE BLOOD COUNT 16.6 K/UL (4.8-10.8)
[2018-06-29 05:45] LABS: ANION GAP 4 mmol/L (5-15); BLOOD UREA NITROGEN 21 mg/dL (7-18); CALCIUM 9.5 MG/DL (8.5-10.1); CARBON DIOXIDE 35 MMOL/L (21-32); CHLORIDE 100 MMOL/L (98-107); POTASSIUM 3.9 MMOL/L (3.5-5.1); SODIUM 139 MMOL/L (136-145)
[2018-06-29 08:00] VITALS: BP 145/86
[2018-06-29] MEDS: Metoprolol Succinate XL 25mg tab ORAL SCH (08:22)
[2018-06-29] MEDS: Furosemide 40mg tab ORAL SCH (08:22)
[2018-06-29] MEDS: Ascorbic Acid 500mg tab ORAL SCH (08:22)
[2018-06-29] MEDS: Eliquis 2.5mg tablet ORAL SCH ×2 (08:22→17:35)
[2018-06-29] MEDS: dilTIAZem HCl CD 240mg cap ORAL SCH (08:23)
[2018-06-29] MEDS: Spironolactone 25mg tab ORAL SCH (08:23)
[2018-06-29] MEDS: Solu-MEDROL 40mg Inj IVP SCH (08:23)
[2018-06-29 12:00] VITALS: BP 119/67
[2018-06-29 16:00] VITALS: BP 123/71
--- NOTE | 2018-06-29 17:27 | Pulmonology Progress Note ---
Assessment/Plan Assessment/Plan 1. Acute on chronic respiratory failure. 2. Severe hyperkalemia with transient bradycardia. 3. Acute renal failure. 4. History of heart failure. 5. History of stroke with left hemiparesis. 6. Hypertension. 7. Hyperlipidemia. 8. Atrial fibrillation on anticoagulation. 9. Anemia sat 100% on O2 2 liters ambulating w PT source of WBC likely steroids taper steroids disc w Dr Bowen dc planning Subjective Constitutional: Reports: no symptoms Respiratory: Denies: shortness of breath Allergies: Coded Allergies: No Known Allergies (Unverified , 06/05/14) Objective Last 24 Hour Vital Signs Date Time Temp Pulse Resp B/P (MAP) Pulse Ox O2 Delivery O2 Flow Rate FiO2 06/29/18 16:00 72 06/29/18 16:00 Nasal Cannula 2.0 06/29/18 16:00 98.6 74 20 123/71 97 Nasal Cannula 2.0 06/29/18 15:41 70 12 100 Nasal Cannula 2.0 28 06/29/18 15:29 28 06/29/18 15:29 70 12 98 Nasal Cannula 2.0 28 06/29/18 12:00 72 06/29/18 12:00 98.5 78 18 119/67 99 Nasal Cannula 2.0 06/29/18 12:00 Nasal Cannula 2.0 06/29/18 11:19 Nasal Cannula 06/29/18 11:19 Nasal Cannula 06/29/18 08:23 90 145/86 06/29/18 08:22 90 145/86 06/29/18 08:00 Nasal Cannula 2.0 06/29/18 08:00 98.2 90 18 145/86 98 Nasal Cannula 2.0 06/29/18 08:00 79 06/29/18 07:05 Nasal Cannula 2.0 28 06/29/18 07:05 Nasal Cannula 06/29/18 07:05 Nasal Cannula 06/29/18 07:05 99 Nasal Cannula 2.0 28 06/29/18 04:00 69 06/29/18 04:00 98.6 71 19 131/66 98 Nasal Cannula 2.0 06/29/18 04:00 Nasal Cannula 2.0 06/29/18 02:57 Nasal Cannula 06/29/18 02:57 Nasal Cannula 06/29/18 00:00 78 06/29/18 00:00 99.1 81 21 128/63 98 Nasal Cannula 2.0 06/29/18 00:00 Nasal Cannula 2.0 06/28/18 22:46 Nasal Cannula 06/28/18 22:45 76 18 98 Nasal Cannula 1.0 06/28/18 20:00 Nasal Cannula 2.0 06/28/18 20:00 98.7 73 19 121/65 99 Nasal Cannula 2.0 06/28/18 20:00 73 06/28/18 19:21 Nasal Cannula 06/28/18 19:20 71 18 98 Nasal Cannula 1.0 06/28/18 19:19 Nasal Cannula 1.0 06/28/18 19:19 98 Nasal Cannula 1.0 25 Intake and Output 06/28/18 06/29/18 19:00 07:00 Intake Total 800 ml 50 ml Output Total 300 ml 1100 ml Balance 500 ml -1050 ml Intake Oral 250 ml 50 ml IV Total 550 ml Output Urine Total 300 ml 1100 ml General Appearance: no acute distress Respiratory/Chest: lungs clear Cardiovascular: normal rate Extremities: no edema Microbiology Date/Time Source Procedure Growth Status 06/26/18 18:00 Indwelling Cath Urine Culture - Final NO GROWTH AFTER 48 HOURS Complete Laboratory Tests 06/29/18 03:05: White Blood Count 16.6H, Red Blood Count 2.66L, Hemoglobin 8.3L, Hematocrit 27.0L, Mean Corpuscular Volume 102H, Mean Corpuscular Hemoglobin 31.2H, Mean Corpuscular Hemoglobin Concent 30.7L, Red Cell Distribution Width 16.4H, Platelet Count 418, Mean Platelet Volume 5.1L, Neutrophils (%) (Auto) 81.6H, Lymphocytes (%) (Auto) 8.6L, Monocytes (%) (Auto) 9.0, Eosinophils (%) (Auto) 0.0, Basophils (%) (Auto) 0.8, Sodium Level 139, Potassium Level 3.9, Chloride Level 100, Carbon Dioxide Level 35H, Anion Gap 4L, Blood Urea Nitrogen 21H, Creatinine 1.0, Estimat Glomerular Filtration Rate , Glucose Level 106, Calcium Level 9.5, Magnesium Level 1.6L, Pro-B-Type Natriuretic Peptide 5982H Current Medications Medications (Trade) Dose Ordered Sig/Kate Route PRN Reason Start Time Stop Time Status Last Admin Dose Admin Acetaminophen (Tylenol) 650 mg Q4H PRN ORAL Mild Pain (Pain Scale 1-3) 06/27/18 15:00 07/25/18 22:59 06/28/18 06:06 Acetaminophen (Tylenol) 650 mg Q4H PRN RECTAL FEVER (temp>100.5F) 06/27/18 15:00 07/25/18 22:59 Albuterol/ Ipratropium (Albuterol/ Ipratropium) 3 ml Q2H PRN HHN Shortness of Breath 06/27/18 14:00 07/02/18 13:59 Albuterol/ Ipratropium (Albuterol/ Ipratropium) 3 ml Q4HRT HHN 06/27/18 15:00 07/01/18 02:59 06/29/18 15:29 Apixaban (Eliquis) 2.5 mg BID ORAL 06/28/18 09:00 07/28/18 08:59 06/29/18 08:22 Artificial Tears (Akwa-Tears) 1 drop Q6H PRN BOTH EYES DRY EYES 06/27/18 14:00 07/25/18 13:59 Ascorbic Acid (Vitamin C) 500 mg DAILY ORAL 06/28/18 09:00 07/26/18 08:59 06/29/18 08:22 Atorvastatin Calcium (Lipitor) 10 mg BEDTIME ORAL 06/27/18 21:00 07/26/18 20:59 06/28/18 20:51 Dextrose (Dextrose 50%) 25 ml Q30M PRN IV Hypoglycemia 06/27/18 13:30 07/25/18 22:59 Dextrose (Dextrose 50%) 50 ml Q30M PRN IV Hypoglycemia 06/27/18 13:30 07/25/18 22:59 Diltiazem HCl (Cardizem CD) 240 mg DAILY ORAL 06/29/18 09:00 07/29/18 08:59 06/29/18 08:23 Furosemide (Lasix) 40 mg DAILY ORAL 06/29/18 09:00 07/29/18 08:59 06/29/18 08:22 Methylprednisolone Sodium Succinate (Solu-MEDROL) 40 mg DAILY IVP 06/28/18 09:00 07/27/18 08:59 06/29/18 08:23 Metoprolol Succinate (Toprol XL) 25 mg DAILY ORAL 06/28/18 09:00 07/26/18 08:59 06/29/18 08:22 Nitroglycerin (Ntg) 0.4 mg Q5M PRN SL Prn Chest Pain 06/27/18 13:30 07/25/18 22:59 Pantoprazole (Protonix) 40 mg BID ORAL 06/27/18 18:00 07/27/18 17:59 06/29/18 08:22 Polyethylene Glycol (Miralax) 17 gm DAILYPRN PRN ORAL Constipation 06/27/18 14:00 07/25/18 13:59 Spironolactone (Aldactone) 25 mg DAILY ORAL 06/28/18 19:00 07/28/18 18:59 06/29/18 08:23 Gio Feng MD Jun 29, 2018 17:27
--- NOTE | 2018-06-29 17:35 | General Progress Note ---
Assessment/Plan Problem List: (1) Hyperkalemia ICD Codes: E87.5 - Hyperkalemia SNOMED: 89912772 (2) SITA (acute kidney injury) ICD Codes: N17.9 - Acute kidney failure, unspecified SNOMED: 63726438 (3) Acute respiratory failure with hypoxia and hypercapnia ICD Codes: J96.01 - Acute respiratory failure with hypoxia; J96.02 - Acute respiratory failure with hypercapnia SNOMED: 742484669 (4) COPD with acute exacerbation ICD Codes: J44.1 - Chronic obstructive pulmonary disease with (acute) exacerbation; J96.02 - Acute respiratory failure with hypercapnia SNOMED: 847928189 (5) Episode of generalized weakness ICD Codes: R53.1 - Weakness SNOMED: 88980138 (6) SIRS (systemic inflammatory response syndrome) ICD Codes: R65.10 - Systemic inflammatory response syndrome (SIRS) of non- infectious origin without acute organ dysfunction; J96.02 - Acute respiratory failure with hypercapnia SNOMED: 805547196 Assessment/Plan off bipap, no distress, Hb lower may need transfuse, renal func better, replace K, restart diuretics, stop atb Subjective Constitutional: Reports: weakness HEENT: Reports: no symptoms Cardiovascular: Reports: no symptoms Respiratory: Reports: cough, SOB with excertion Gastrointestinal/Abdominal: Reports: no symptoms Genitourinary: Reports: incontinence Neurologic/Psychiatric: Reports: pre-existing deficit Allergies: Coded Allergies: No Known Allergies (Unverified , 06/05/14) Objective Last 24 Hour Vital Signs Date Time Temp Pulse Resp B/P (MAP) Pulse Ox O2 Delivery O2 Flow Rate FiO2 06/29/18 16:00 72 06/29/18 16:00 Nasal Cannula 2.0 06/29/18 16:00 98.6 74 20 123/71 97 Nasal Cannula 2.0 06/29/18 15:41 70 12 100 Nasal Cannula 2.0 28 06/29/18 15:29 28 06/29/18 15:29 70 12 98 Nasal Cannula 2.0 28 06/29/18 12:00 72 06/29/18 12:00 98.5 78 18 119/67 99 Nasal Cannula 2.0 06/29/18 12:00 Nasal Cannula 2.0 06/29/18 11:19 Nasal Cannula 06/29/18 11:19 Nasal Cannula 06/29/18 08:23 90 145/86 06/29/18 08:22 90 145/86 06/29/18 08:00 Nasal Cannula 2.0 06/29/18 08:00 98.2 90 18 145/86 98 Nasal Cannula 2.0 06/29/18 08:00 79 06/29/18 07:05 Nasal Cannula 2.0 28 06/29/18 07:05 Nasal Cannula 06/29/18 07:05 Nasal Cannula 06/29/18 07:05 99 Nasal Cannula 2.0 28 06/29/18 04:00 69 06/29/18 04:00 98.6 71 19 131/66 98 Nasal Cannula 2.0 06/29/18 04:00 Nasal Cannula 2.0 06/29/18 02:57 Nasal Cannula 06/29/18 02:57 Nasal Cannula 06/29/18 00:00 78 06/29/18 00:00 99.1 81 21 128/63 98 Nasal Cannula 2.0 06/29/18 00:00 Nasal Cannula 2.0 06/28/18 22:46 Nasal Cannula 06/28/18 22:45 76 18 98 Nasal Cannula 1.0 06/28/18 20:00 Nasal Cannula 2.0 06/28/18 20:00 98.7 73 19 121/65 99 Nasal Cannula 2.0 06/28/18 20:00 73 06/28/18 19:21 Nasal Cannula 06/28/18 19:20 71 18 98 Nasal Cannula 1.0 06/28/18 19:19 Nasal Cannula 1.0 06/28/18 19:19 98 Nasal Cannula 1.0 25 Intake and Output 06/28/18 06/29/18 19:00 07:00 Intake Total 800 ml 50 ml Output Total 300 ml 1100 ml Balance 500 ml -1050 ml Intake Oral 250 ml 50 ml IV Total 550 ml Output Urine Total 300 ml 1100 ml Laboratory Tests 06/29/18 03:05: White Blood Count 16.6H, Red Blood Count 2.66L, Hemoglobin 8.3L, Hematocrit 27.0L, Mean Corpuscular Volume 102H, Mean Corpuscular Hemoglobin 31.2H, Mean Corpuscular Hemoglobin Concent 30.7L, Red Cell Distribution Width 16.4H, Platelet Count 418, Mean Platelet Volume 5.1L, Neutrophils (%) (Auto) 81.6H, Lymphocytes (%) (Auto) 8.6L, Monocytes (%) (Auto) 9.0, Eosinophils (%) (Auto) 0.0, Basophils (%) (Auto) 0.8, Sodium Level 139, Potassium Level 3.9, Chloride Level 100, Carbon Dioxide Level 35H, Anion Gap 4L, Blood Urea Nitrogen 21H, Creatinine 1.0, Estimat Glomerular Filtration Rate , Glucose Level 106, Calcium Level 9.5, Magnesium Level 1.6L, Pro-B-Type Natriuretic Peptide 5982H Height (Feet): 5 Height (Inches): 6.00 Weight (Pounds): 179 General Appearance: no apparent distress, alert EENT: normal ENT inspection Neck: normal alignment Cardiovascular: regularly irregular Respiratory/Chest: lungs clear Abdomen: non tender, soft Edema: mild edema Neurologic: disoriented Pastor Bowen MD Jun 29, 2018 17:35
[2018-06-29 20:00] VITALS: BP 126/75
[2018-06-30] VITALS: BP_SYST 126; BP_SYST 137; BP_DIAS 75; BP_DIAS 90
[2018-06-30] MEDS: Albuterol/Ipratropium 3ml neb HHN SCH ×5 (03:00→19:03)
[2018-06-30 04:00] VITALS: BP 123/65
--- NOTE | 2018-06-30 04:00 | Progress Note ---
DATE: 06/29/2018 CARDIOLOGY PROGRESS NOTE SUBJECTIVE: The patient remains with no shortness of breath. OBJECTIVE: VITAL SIGNS: She is afebrile. Blood pressure 123/71, pulse 74, and respiratory rate 20. LUNGS: Coarse breath sounds. No wheezing. CARDIAC: Regular rhythm and rate. Normal S1 and S2. ABDOMEN: Soft. EXTREMITIES: No edema. LABORATORY DATA: White count 16.6 and hemoglobin 8.3. Magnesium 1.6. Pro-natriuretic peptide 5900. BUN 21, creatinine 1, and potassium 3.9. IMPRESSION: 1. Paroxysmal atrial fibrillation. 2. bradyarrhythmia due to hyperkalemia. 3. Chronic diastolic congestive heart failure. 4. COPD exacerbation. 5. Hypovolemia. 6. Dehydration, recovered. PLAN: 1. Cardioembolic prophylaxis with apixaban. 2. Titrate diltiazem and metoprolol for rate control. 3. Continue statin therapy. 4. Steroid taper. Jan Moreno M.D. DR: KRISH JOB#: [id number] CC:
[2018-06-30 05:09] LABS: HEMATOCRIT 28.7 % (37.0-47.0); HEMOGLOBIN 8.7 G/DL (12.0-16.0); MEAN CORPUSCULAR VOLUME 101 FL (80-99); PLATELET COUNT 426 K/UL (150-450); RED BLOOD COUNT 2.84 M/UL (4.20-5.40); RED CELL DISTRIBUTION WIDTH 17.2 % (11.6-14.8); WHITE BLOOD COUNT 21.2 K/UL (4.8-10.8)
[2018-06-30 05:49] LABS: ANION GAP 2 mmol/L (5-15); BLOOD UREA NITROGEN 24 mg/dL (7-18); CARBON DIOXIDE 39 MMOL/L (21-32); CHLORIDE 99 MMOL/L (98-107); CREATININE 0.9 MG/DL (0.55-1.30); SODIUM 139 MMOL/L (136-145)
[2018-06-30 08:12] VITALS: BP 147/80
[2018-06-30] MEDS: dilTIAZem HCl CD 240mg cap ORAL SCH (09:14)
[2018-06-30] MEDS: Metoprolol Succinate XL 25mg tab ORAL SCH (09:14)
[2018-06-30] MEDS: Ascorbic Acid 500mg tab ORAL SCH (09:14)
[2018-06-30] MEDS: Eliquis 2.5mg tablet ORAL SCH ×2 (09:15→17:22)
[2018-06-30] MEDS: Spironolactone 25mg tab ORAL SCH (09:15)
[2018-06-30] MEDS: Furosemide 40mg tab ORAL SCH (09:15)
[2018-06-30 12:00] VITALS: BP 130/73
--- NOTE | 2018-06-30 14:52 | Pulmonology Progress Note ---
Assessment/Plan Assessment/Plan 1. Acute on chronic respiratory failure. 2. Severe hyperkalemia with transient bradycardia. 3. Acute renal failure. 4. History of heart failure. 5. History of stroke with left hemiparesis. 6. Hypertension. 7. Hyperlipidemia. 8. Atrial fibrillation on anticoagulation. 9. Anemia check RA sat taper steroids oral dc planning Subjective Constitutional: Reports: no symptoms Allergies: Coded Allergies: No Known Allergies (Unverified , 06/05/14) Objective Last 24 Hour Vital Signs Date Time Temp Pulse Resp B/P (MAP) Pulse Ox O2 Delivery O2 Flow Rate FiO2 06/30/18 14:45 66 16 96 Nasal Cannula 2.0 06/30/18 12:04 73 24 98 Nasal Cannula 2.0 06/30/18 12:00 Nasal Cannula 2.0 06/30/18 12:00 98.2 69 19 130/73 98 Nasal Cannula 2.0 06/30/18 11:55 75 24 100 Nasal Cannula 2.0 06/30/18 11:36 70 06/30/18 10:00 Nasal Cannula 2.0 06/30/18 09:26 99 24 95 Nasal Cannula 2.0 06/30/18 09:22 78 20 97 Room Air 21 06/30/18 09:14 71 147/80 06/30/18 09:14 71 147/80 06/30/18 09:07 134 06/30/18 08:12 97.7 71 18 147/80 95 Nasal Cannula 2.0 06/30/18 08:10 62 06/30/18 08:00 Nasal Cannula 2.0 06/30/18 07:56 97 Nasal Cannula 2.0 06/30/18 07:56 Nasal Cannula 2.0 06/30/18 04:00 98.7 66 18 123/65 100 Nasal Cannula 2.0 06/30/18 04:00 Nasal Cannula 2.0 06/30/18 03:43 66 06/30/18 03:11 Nasal Cannula 2.0 06/30/18 03:11 Nasal Cannula 2.0 28 06/30/18 00:00 99.0 64 20 137/90 99 Nasal Cannula 2.0 06/30/18 00:00 Nasal Cannula 2.0 06/30/18 00:00 98.8 71 18 126/75 98 Nasal Cannula 2.0 06/29/18 23:24 74 06/29/18 23:14 Nasal Cannula 2.0 28 06/29/18 23:14 Nasal Cannula 2.0 28 06/29/18 20:00 98.8 71 18 126/75 98 Nasal Cannula 2.0 06/29/18 20:00 Nasal Cannula 2.0 06/29/18 19:22 97 Nasal Cannula 2.0 28 06/29/18 19:22 Nasal Cannula 2.0 28 06/29/18 19:22 Nasal Cannula 2.0 28 06/29/18 19:22 Nasal Cannula 2.0 28 06/29/18 19:06 95 06/29/18 16:00 72 06/29/18 16:00 Nasal Cannula 2.0 06/29/18 16:00 98.6 74 20 123/71 97 Nasal Cannula 2.0 06/29/18 15:41 70 12 100 Nasal Cannula 2.0 28 06/29/18 15:29 28 06/29/18 15:29 70 12 98 Nasal Cannula 2.0 28 Intake and Output 06/29/18 06/30/18 19:00 07:00 Intake Total 470 ml 60 ml Output Total 1200 ml 475 ml Balance -730 ml -415 ml Intake Oral 470 ml 60 ml Output Urine Total 1200 ml 475 ml General Appearance: no acute distress HEENT: atraumatic Respiratory/Chest: lungs clear Cardiovascular: normal rate Laboratory Tests 06/30/18 03:20: White Blood Count 21.2H, Red Blood Count 2.84L, Hemoglobin 8.7L, Hematocrit 28.7L, Mean Corpuscular Volume 101H, Mean Corpuscular Hemoglobin 30.7, Mean Corpuscular Hemoglobin Concent 30.3L, Red Cell Distribution Width 17.2H, Platelet Count 426, Mean Platelet Volume 4.9L, Neutrophils (%) (Auto) , Lymphocytes (%) (Auto) , Monocytes (%) (Auto) , Eosinophils (%) (Auto) , Basophils (%) (Auto) , Differential Total Cells Counted 100, Neutrophils % ( Manual) 81H, Lymphocytes % (Manual) 10L, Monocytes % (Manual) 9, Eosinophils % ( Manual) 0, Basophils % (Manual) 0, Band Neutrophils 0, Platelet Estimate Adequate, Platelet Morphology Normal, Hypochromasia 1+, Anisocytosis 1+, Macrocytosis 1+, Sodium Level 139, Potassium Level 4.0, Chloride Level 99, Carbon Dioxide Level 39H, Anion Gap 2L, Blood Urea Nitrogen 24H, Creatinine 0.9 , Estimat Glomerular Filtration Rate , Glucose Level 103, Calcium Level 9.0 06/30/18 10:08: Stool Occult Blood Positive Current Medications Medications (Trade) Dose Ordered Sig/Kate Route PRN Reason Start Time Stop Time Status Last Admin Dose Admin Acetaminophen (Tylenol) 650 mg Q4H PRN ORAL Mild Pain (Pain Scale 1-3) 06/27/18 15:00 07/25/18 22:59 06/29/18 20:34 Acetaminophen (Tylenol) 650 mg Q4H PRN RECTAL FEVER (temp>100.5F) 06/27/18 15:00 07/25/18 22:59 Albuterol/ Ipratropium (Albuterol/ Ipratropium) 3 ml Q2H PRN HHN Shortness of Breath 06/27/18 14:00 07/02/18 13:59 Albuterol/ Ipratropium (Albuterol/ Ipratropium) 3 ml Q4HRT HHN 06/27/18 15:00 07/01/18 02:59 06/30/18 14:45 Apixaban (Eliquis) 2.5 mg BID ORAL 06/28/18 09:00 07/28/18 08:59 06/30/18 09:15 Artificial Tears (Akwa-Tears) 1 drop Q6H PRN BOTH EYES DRY EYES 06/27/18 14:00 07/25/18 13:59 Ascorbic Acid (Vitamin C) 500 mg DAILY ORAL 06/28/18 09:00 07/26/18 08:59 06/30/18 09:14 Atorvastatin Calcium (Lipitor) 10 mg BEDTIME ORAL 06/27/18 21:00 07/26/18 20:59 06/29/18 20:33 Dextrose (Dextrose 50%) 25 ml Q30M PRN IV Hypoglycemia 06/27/18 13:30 07/25/18 22:59 Dextrose (Dextrose 50%) 50 ml Q30M PRN IV Hypoglycemia 06/27/18 13:30 07/25/18 22:59 Diltiazem HCl (Cardizem CD) 240 mg DAILY ORAL 06/29/18 09:00 07/29/18 08:59 06/30/18 09:14 Furosemide (Lasix) 40 mg DAILY ORAL 06/29/18 09:00 07/29/18 08:59 06/30/18 09:15 Metoprolol Succinate (Toprol XL) 25 mg DAILY ORAL 06/28/18 09:00 07/26/18 08:59 06/30/18 09:14 Nitroglycerin (Ntg) 0.4 mg Q5M PRN SL Prn Chest Pain 06/27/18 13:30 07/25/18 22:59 Pantoprazole (Protonix) 40 mg BID ORAL 06/27/18 18:00 07/27/18 17:59 06/30/18 09:15 Polyethylene Glycol (Miralax) 17 gm DAILYPRN PRN ORAL Constipation 06/27/18 14:00 07/25/18 13:59 06/29/18 18:19 Prednisone (predniSONE) 20 mg DAILY ORAL 06/30/18 09:00 07/30/18 08:59 06/30/18 09:15 Spironolactone (Aldactone) 25 mg DAILY ORAL 06/28/18 19:00 07/28/18 18:59 06/30/18 09:15 Gio Feng MD Jun 30, 2018 14:52
[2018-06-30 16:00] VITALS: BP 124/63
--- NOTE | 2018-06-30 20:45 | Progress Note ---
DATE: 06/30/2018 CARDIOLOGY PROGRESS NOTE SUBJECTIVE: The patient feels much better. She has no chest pain or shortness of breath. OBJECTIVE: VITAL SIGNS: Room air oxygen saturation is 97%, blood pressure 147/85, heart rate 71, and respiratory rate 18. LUNGS: Clear. CARDIAC: Regular. Normal S1, S2. ABDOMEN: Soft. EXTREMITIES: No edema. Slight left-sided weakness. LABORATORY DATA: White count 21 and hemoglobin 8.7. BUN 24, creatinine 0.9, bicarb 39, sodium 139, and potassium 4.0. Stool occult blood positive. IMPRESSION: 1. Acute kidney injury with hyperkalemia, resolved. 2. Acute respiratory failure with hypoxia and hypercapnia, recovered. 3. Acute on chronic respiratory acidosis, resolved. 4. Chronic obstructive pulmonary disease with acute exacerbation and bronchospasm, now stabilized. 5. Acute myocardial ischemia secondary to above, resolved. 6. Anemia of chronic disease. 7. Contraction alkalosis. 8. Hypomagnesemia, status post replacement therapy yesterday. 9. Paroxysmal atrial fibrillation. PLAN: 1. Full anticoagulation with apixaban. 2. Steroid taper. 3. Continue beta-román and diltiazem with titration of dose for rate control and blood pressure management. 4. No additional magnesium at this time. 5. Monitor levels as an outpatient. Jan Moreno M.D. DR: MINA JOB#: [id number] CC:
--- NOTE | 2018-07-01 05:00 | Discharge Summary ---
DATE OF ADMISSION: 06/25/2018 DATE OF DISCHARGE: 06/30/2018 PERTINENT HISTORY: The patient is known to have chronic obstructive pulmonary disease and congestive heart failure presented with increasing shortness of breath, weakness, and hyperkalemia. She was put on BiPAP in the emergency room. There is a history of atrial fibrillation, anticoagulation, CVA. PERTINENT PHYSICAL FINDINGS: GENERAL: The patient is awake, on BiPAP. HEENT: Unremarkable. LUNGS: Clear. HEART: Regular rhythm. No murmur. ABDOMEN: Soft without organomegaly. EXTREMITIES: No edema. NEUROLOGIC: She has facial asymmetry. COURSE IN THE HOSPITAL: The patient had BUN 50, creatinine 3.4, and potassium 8.1, all of which corrected to normal with medical management. She was given BiPAP, pulmonary therapy, empiric antibiotics, and steroid. Chest x-ray remained clear. Her respiratory distress improved. On the day of discharge, her O2 saturation was normal on room air. LUNGS: Clear. HEART: Regular rhythm. ABDOMEN: Soft without organomegaly or masses. EXTREMITIES: No edema. She was discharged back to the ECF in stable condition. FINAL DIAGNOSES: 1. Acute on chronic hypoxemic respiratory failure. 2. Acute exacerbation of chronic obstructive pulmonary disease. 3. Hyperkalemia. 4. Acute kidney injury. 5. Chronic diastolic congestive heart failure. 6. Paroxysmal atrial fibrillation. 7. History of anticoagulation. 8. Leukocytosis. 9. Anemia. 10. History of CVA with cognitive deficits. 11. Osteoarthritis. 12. Heme-positive stool, likely from gastritis, ___ anticoagulant. DISCHARGE DISPOSITION: Back to the ECF on no added salt diet. MEDICATIONS: Per the discharge medication list. FOLLOWUP: Followup by Dr. Bowen in the facility. Pastor Bowen M.D. DR: FROY JOB#: [id number] CC:
== END 2018-06-30 20:15 | DRG 189 ==
LOC: EDBD 19:24 → EMR 19:59 → EDBEDREQ 20:05 → ICU 20:10 → EDBEDREQ 20:37 → 2W 06-27 13:20
PROC: 5A09357 Assistance with Respiratory Ventilation, Less than 24 Consecutive Hours, Continuous Positive Airway Pressure (ICD-10-PCS; principal; 2018-06-25)
DX: J96.21 Acute and chronic respiratory failure with hypoxia (principal); I50.33 Acute on chronic diastolic (congestive) heart failure; K29.71 Gastritis, unspecified, with bleeding; J44.1 Chronic obstructive pulmonary disease with (acute) exacerbation; N17.9 Acute kidney failure, unspecified; I69.354 Hemiplegia and hemiparesis following cerebral infarction affecting left non-dominant side; Z87.891 Personal history of nicotine dependence; I11.0 Hypertensive heart disease with heart failure; I69.319 Unspecified symptoms and signs involving cognitive functions following cerebral infarction; E87.5 Hyperkalemia; D64.9 Anemia, unspecified; M19.90 Unspecified osteoarthritis, unspecified site; Z79.01 Long term (current) use of anticoagulants; I25.2 Old myocardial infarction; K21.9 Gastro-esophageal reflux disease without esophagitis; I51.3 Intracardiac thrombosis, not elsewhere classified; R00.1 Bradycardia, unspecified; E83.42 Hypomagnesemia; I48.0 Paroxysmal atrial fibrillation
CPT/HCPCS: 36415; 36600; 51702; 71045; 80048; 80053; 80061; 81001; 81003; 82270; 82550; 82553; 82803; 83605; 83735; 83880; 84100; 84443; 84484; 85007; 85025; 85610; 86850; 86900; 86901; 87040; 87081; 87086; 93005; 93306; 94640; 94660; 94664; 94760; 96361; 96365; 96375; 99291; J7620; J8499

== ENCOUNTER 2018-12-12 14:46 | Inpatient (IN) | payer MEDICAID, MEDICARE ==
[~2018-12-12] VITALS: Ht 160 cm; Wt 81.6 kg
[~2018-12-12 14:46] MED LIST changes: +ARTIFICIAL TEAR15 ML BOTH EYES; +FERROUS SULFAT325 MG ORAL; +NAPROXEN375 M2 ORAL; +VITAMIN C500 M1 ORAL
[2018-12-12 14:50] VITALS: BP 78/43
--- NOTE | 2018-12-12 14:50 | NUR ---
ED Nurse Note: PT FROM [facility] DUE TO SYNCOPE EPISODE. PER EMS, PT WAS USING THE TOILET AND PASSED OUT. PT ARRIVE IN THE ED AWAKE AND LERT X 4 AND FOLLOWS COMMANDS. NO RESPIRATORY DISTRESS. SKIN IS PALE. LOW BP 78/[address] EASTON NOTIFIED.
--- NOTE | 2018-12-12 14:55 | NUR ---
ED Nurse Note: DR EASTON NOTIFIED OF BP 78/43. WAITING FOR ORDERS TO CARRY OUT.
[2018-12-12] MEDS ORDERED: LEXAPRO10 MG ORAL (15:07)
[2018-12-12] MEDS ORDERED: BENTYL PO (15:07)
[2018-12-12] MEDS ORDERED: MILK OF MA400 MG/51 ORAL (15:07)
--- NOTE | 2018-12-12 15:13 | Emergency Room Report ---
History of Present Illness General Chief Complaint: Syncope Source: Medical Record, EMS Present Illness HPI 78-year-old female presents ED for evaluation. Brought in by EMS for syncopal episode. Occurred today at long term facility. Patient was on toilet when she was having a bowel movement when she became cool and clammy. Per EMS patient noted to be hypotensive. Was given IV fluids. Patient blood pressure improved somewhat. Patient states she feels weak and does not feel well. Denies chest pain or shortness of breath. Denies rectal bleeding. Denies fevers or chills. No other aggravating relieving factors. Denies any other associated symptoms Allergies: Coded Allergies: No Known Allergies (Unverified , 06/05/14) Patient History Past Medical History: HTN, asthma, COPD, CVA/TIA Past Surgical History: pacemaker Pertinent Family History: none Social History: Denies: smoking, alcohol use, drug use Last Menstrual Period: na Now: No Immunizations: UTD Reviewed Nursing Documentation: PMH: Agreed; PSxH: Agreed Nursing Documentation-PMH Past Medical History: No History, Except For Hx Cardiac Problems: Yes Hx Hypertension: Yes Hx Pacemaker: Yes Hx COPD: Yes Hx Cancer: No Hx Gastrointestinal Problems: Yes Hx Neurological Problems: Yes Hx Cerebrovascular Accident: Yes Hx Paralysis: Yes Hx Weakness: Yes Review of Systems All Other Systems: negative except mentioned in HPI Physical Exam Vital Signs Date Time Temp Pulse Resp B/P (MAP) Pulse Ox O2 Delivery O2 Flow Rate FiO2 12/12/18 14:40 97.5 55 18 77/46 (56) 98 Room Air Sp02 EP Interpretation: reviewed, normal General Appearance: no apparent distress, alert, GCS 15, non-toxic Head: normocephalic, atraumatic Eyes: bilateral eye normal inspection, bilateral eye PERRL ENT: hearing grossly normal, normal pharynx, no angioedema, normal voice Neck: full range of motion, supple/symm/no masses Respiratory: chest non-tender, lungs clear, normal breath sounds, speaking full sentences Cardiovascular #1: regular rate, rhythm, no edema Cardiovascular #2: 2+ carotid (R), 2+ carotid (L), 2+ radial (R), 2+ radial (L) , 2+ dorsalis pedis (R), 2+ dorsalis pedis (L) Gastrointestinal: normal bowel sounds, non tender, soft, non-distended, no guarding, no rebound Rectal: heme positive stool Genitourinary: normal inspection, no CVA tenderness Musculoskeletal: back normal, gait/station normal, normal range of motion, non- tender Neurologic: alert, oriented x3, responsive, motor strength/tone normal, sensory intact, speech normal Psychiatric: judgement/insight normal, memory normal, mood/affect normal, no suicidal/homicidal ideation Reflexes: 3+ bicep (R), 3+ bicep (L), 3+ tricep (R), 3+ tricep (L), 3+ knee (R) , 3+ knee (L) Skin: normal color, no rash, warm/dry, well hydrated Lymphatic: no adenopathy Procedures Critical Care Time Critical Care Time i. I feel this is a highly complex case requiring extensive working including EKG/Rhythm strip, Xray/CT/US, Blood/urine lab work, repeat exams while in ED, and administration of strong opiates/narcotics for pain control, admission to hospital or close patient follow up. Total time: 60 min bedside evaluation and treatment excludes procedures (EKG). Reason for critical care: hypotension, LGIB, anemia Possible complications: hypotension, hypertension, IN, shock, arrhythmias, metabolic acidosis, end organ damage, respiratory failure. Interventions: labs, EKG, CXR. IVFs. rectal exam. PRBCs. abx. Course: patient presenting with syncope, hypotension.Hb 5.9. Cr 2.2. Trop 0.08. mild leukocytosis. EKG - NSr, no acute ischemic changes interpreted by me. CXR - no signficant process. BP improved with IVFS. 2 units PRBCs started. Consultations: nursing staff, EMS, family Performed by: Dr Vo Tolerated well condition = critical j. because of unstable vital signs this patient had a condition that could potentially threaten life or limb. I feel this is a critical patient who required my full attention while patient was considered critical. Total Critical Care Time excluding procedures was greater than 35 minutes critical Medical Decision Making Diagnostic Impression: Primary Impression: Lower GI bleed Additional Impressions: Anemia Qualified Codes: D64.9 - Anemia, unspecified Renal insufficiency Elevated troponin ER Course Hospital Course 78 yo F presents with syncopal episode. hypotensive in field. Differential diagnoses include: GI bleed, anemia, arrythmia, sepsis Clinical course Patient placed on stretcher. site monitor. After initial history and physical I ordered labs, IV fluids, EKG, CXR Labs - minimal leukocytosis, Hb 5.9, Cr 2.2, trop 0.08. EKG - NSR, no acute ischemic changes intepreted by me CXR - no acute process rectal exam guiac + BP improved after IVFs. PRBCs ordered and transfusion started in ED patient denies chest pain. mildly elevated trop likely demand ischemia Case discussed with Dr. Bowen and he agreed to accept the patient to his service for further care and support I feel this is a highly complex case requiring extensive working including EKG/ Rhythm strip, Xray/CT/US, Blood/urine lab work, repeat exams while in ED, and administration of strong opiates/narcotics for pain control, admission to hospital or close patient follow up. Diagnosis - LGIB, anemia, renal insufficiency, elevated troponin Patient admitted to SDU in critical condition Labs Test 12/12/18 15:05 White Blood Count 12.3 K/UL (4.8-10.8) Red Blood Count 2.25 M/UL (4.20-5.40) Hemoglobin 5.9 G/DL (12.0-16.0) Hematocrit 21.1 % (37.0-47.0) Mean Corpuscular Volume 94 FL (80-99) Mean Corpuscular Hemoglobin 26.4 PG (27.0-31.0) Mean Corpuscular Hemoglobin Concent 28.2 G/DL (32.0-36.0) Red Cell Distribution Width 19.0 % (11.6-14.8) Platelet Count 480 K/UL (150-450) Mean Platelet Volume 4.6 FL (6.5-10.1) Neutrophils (%) (Auto) % (45.0-75.0) Lymphocytes (%) (Auto) % (20.0-45.0) Monocytes (%) (Auto) % (1.0-10.0) Eosinophils (%) (Auto) % (0.0-3.0) Basophils (%) (Auto) % (0.0-2.0) Prothrombin Time 11.7 SEC (9.30-11.50) Prothromb Time International Ratio 1.1 (0.9-1.1) Activated Partial Thromboplast Time 25 SEC (23-33) Sodium Level 142 MMOL/L (136-145) Potassium Level 5.8 MMOL/L (3.5-5.1) Chloride Level 106 MMOL/L (98-107) Carbon Dioxide Level 30 MMOL/L (21-32) Anion Gap 6 mmol/L (5-15) Blood Urea Nitrogen 45 mg/dL (7-18) Creatinine 2.2 MG/DL (0.55-1.30) Estimat Glomerular Filtration Rate mL/min (>60) Glucose Level 163 MG/DL (74-106) Lactic Acid Level 3.90 mmol/L (0.4-2.0) Calcium Level 8.3 MG/DL (8.5-10.1) Total Bilirubin 0.2 MG/DL (0.2-1.0) Aspartate Amino Transf (AST/SGOT) 19 U/L (15-37) Alanine Aminotransferase (ALT/SGPT) 15 U/L (12-78) Alkaline Phosphatase 129 U/L (46-116) Total Creatine Kinase 236 U/L (26-308) Creatine Kinase MB 2.5 NG/ML (0.0-3.6) Creatine Kinase MB Relative Index 1.0 Troponin I 0.081 ng/mL (0.000-0.056) Pro-B-Type Natriuretic Peptide 26920 pg/mL (0-125) Total Protein 6.8 G/DL (6.4-8.2) Albumin 2.9 G/DL (3.4-5.0) Globulin 3.9 g/dL Albumin/Globulin Ratio 0.7 (1.0-2.7) EKG Diagnostic Results Rate: normal Rhythm: NSR ST Segments: no acute changes ASA given to the pt in ED: No Rhythm Strip Diag. Results EP Interpretation: yes Rhythm: NSR, no PVC's, no ectopy Chest X-Ray Diagnostic Results Chest X-Ray Diagnostic Results : Chest X-Ray Ordered: Yes # of Views/Limited/Complete: 1 View Indication: Other EP Interpretation: Yes Interpretation: no consolidation, no effusion, no pneumothorax, no acute cardiopulmonary disease Impression: No acute disease Electronically Signed by: Electronically signed by Juan Manuel Vo MD Last Vital Signs Date Time Temp Pulse Resp B/P (MAP) Pulse Ox O2 Delivery O2 Flow Rate FiO2 12/12/18 14:40 97.5 55 18 77/46 (56) 98 Room Air Status: improved Disposition: ADMITTED INPATIENT Condition: Critical Juan Manuel Vo MD December 12, 2018 15:13
[2018-12-12 15:44] LABS: ANION GAP 6 mmol/L (5-15); BLOOD UREA NITROGEN 45 mg/dL (7-18); CALCIUM 8.3 MG/DL (8.5-10.1); CARBON DIOXIDE 30 MMOL/L (21-32); CHLORIDE 106 MMOL/L (98-107); CREATININE 2.2 MG/DL (0.55-1.30); POTASSIUM 5.8 MMOL/L (3.5-5.1); SODIUM 142 MMOL/L (136-145)
[2018-12-12 15:48] LABS: HEMATOCRIT 21.1 % (37.0-47.0); MEAN CORPUSCULAR VOLUME 94 FL (80-99); PLATELET COUNT 480 K/UL (150-450); RED BLOOD COUNT 2.25 M/UL (4.20-5.40); WHITE BLOOD COUNT 12.3 K/UL (4.8-10.8)
[2018-12-12 15:55] LABS: HEMOGLOBIN 5.9 G/DL (12.0-16.0)
[2018-12-12 15:57] LABS: ALANINE AMINOTRANSFERASE 15 U/L (12-78); ALBUMIN 2.9 G/DL (3.4-5.0); ALBUMIN/GLOBULIN RATIO 0.7 (1.0-2.7); ALKALINE PHOSPHATASE 129 U/L (46-116); ASPARTATE AMINO TRANSFERASE 19 U/L (15-37); BILIRUBIN,TOTAL 0.2 MG/DL (0.2-1.0); CKMB 2.5 NG/ML (0.0-3.6); CREATINE KINASE 236 U/L (26-308); INR 1.1 (0.9-1.1)
[2018-12-12 16:00] VITALS: BP 98/70
[2018-12-12 16:55] VITALS: BP 108/59
--- NOTE | 2018-12-12 16:55 | NUR ---
ED Nurse Note: PT INSTRUCTED TO REPORT ANY S/SX OF ALLERGIC REACTION FROM THE BLOOD SUCH ITCHINESS, REDNESS, CP OR SOB. PT VERBALIZED UNDERSTANDING OF INSTRUCTIONS.
[2018-12-12 17:03] LABS: APPEARANCE,URINE CLEAR; BILIRUBIN, URINE NEGATIVE (NEGATIVE); COLOR,URINE PALE YELLOW; GLUCOSE, URINE (UA) NEGATIVE (NEGATIVE); KETONES,URINE NEGATIVE (NEGATIVE); LEUKOCYTE ESTERASE ,URINE NEGATIVE (NEGATIVE); NITRITE,URINE NEGATIVE (NEGATIVE); PH,URINE 5 (4.5-8.0); PROTEIN,URINE 2+ (NEGATIVE); UROBILINOGEN,URINE NORMAL MG/DL (0.0-1.0)
--- NOTE | 2018-12-12 17:03 | NUR ---
ED Nurse Note: PT'S SON YESY [phone].
--- NOTE | 2018-12-12 18:00 | NUR ---
ED Nurse Note: UNABLE TO GIVE REPORT TO RECEIVING RN OF SDU. WILL TRY AGAIN LATER.
[2018-12-12] MEDS ORDERED: Acetaminophen 650 MG SUPP RECTAL PRN ×2 (18:15)
--- NOTE | 2018-12-12 18:18 | NUR ---
ED Nurse Note: REPORT GIVEN TO LARA HARRIS OF SDU.
--- NOTE | 2018-12-12 18:20 | NUR ---
NURSE NOTES: Received telephone report from Cleo HARRIS.
--- NOTE | 2018-12-12 18:30 | NUR ---
NURSE NOTES: Pt. at the unit at 1830. Pt. currently having blood transfusion IV at left AC #20g. patent/intact. Tolerating well. No a/r noted. Body check done with CN. Noted old scar at bilateral buttocks but skin intact. Will cont. to monitor.
[2018-12-12] MEDS ORDERED: Nitroglycerin Subl 0.4mg tab SL PRN (18:45)
--- NOTE | 2018-12-12 19:23 | NUR ---
HAND-OFF: Report given to Fidencio HARRIS. Pt. having blood transfusion. Pt remain stable.
--- NOTE | 2018-12-12 19:25 | NUR ---
NURSE NOTES: Report received from STEVEN Harrison. Observed pt sleeping on the bed, arousable by voice. Pt getting transfusion without any symptoms. Pt appears calm and comfortable. A/O x4. SR on telemetry monitor. Skin intact. IV on L AC 20G, intact and patent. VS 110/72, P 66, R 20, SaO2 100%, T 97.4. Bed in the lowest position. Side rails up x3 .Will continue to monitor.
[2018-12-12] MEDS: Albuterol/Ipratropium 3ml neb HHN SCH ×2 (19:41→23:15)
[2018-12-12 20:00] VITALS: BP 115/71
[2018-12-12] MEDS: dilTIAZem HCl 60mg tab ORAL SCH (20:44)
[2018-12-12] MEDS: Pantoprazole Inj IV SCH (20:44)
[2018-12-12] MEDS ORDERED: Metoprolol 25mg tab ORAL SCH (21:00)
[2018-12-12] MEDS ORDERED: HYDROCORTISONE28 G2 TP (23:20)
[2018-12-12] MEDS ORDERED: PROAIR HFA8.5 GM INH (23:20)
[2018-12-12] MEDS ORDERED: MIRALAX17 G2 ORAL (23:20)
[2018-12-12] MEDS ORDERED: ACETAMINOPHEN500 M5 ORAL (23:20)
--- NOTE | 2018-12-12 23:24 | NUR ---
RESPIRATORY NOTE: PT HR WAS FOUND TO BE LOW POST BREATHING TX. 54 - 59 BPM. RN RUBENS WAS NOTIFIED. WILL CONTINUE TO MONITOR.
--- NOTE | 2018-12-12 23:30 | NUR ---
NURSE NOTES: Noted SB with HR of 45 on registered nurse cardiac. BP of 90/51 noted. Pt is asymptomatic. No signs of AMS. Third bag of blood transfusion still going. Will closely monitor.
[2018-12-13] VITALS (12 sets, daily range): BP systolic 108–123; BP diastolic 59–73
--- NOTE | 2018-12-13 | NUR ---
NURSE NOTES: Sinus tracee on personnel monitor with HR of 50s noted. BP of 92/52 noted. Pt is responsive and asymptomatic. Bed bath given. Reposition done with pillow support. Will continue to monitor.
--- NOTE | 2018-12-13 00:15 | Consultation ---
DATE OF CONSULTATION: 12/12/2018 CHIEF COMPLAINT: I was asked to see this patient by Dr. Pastor Bowen for evaluation of severe anemia. HISTORY OF PRESENT ILLNESS: The patient is a pleasant 78-year-old woman who was brought into the hospital due to syncopal episode. She resides in the nursing facility. As she was on the toilet, having a bowel movement, she became cool and clammy and became hypotensive. Blood pressure has improved and she feels better. She denies any hematochezia. However, she does take iron on a long-term basis. She does not recall having any endoscopy or colonoscopy in the past but she is somewhat of a poor historian. She has a history of prior stroke. PAST MEDICAL HISTORY: History of hypertension, asthma, COPD, history of stroke and TIA, status post pacemaker placement. FAMILY HISTORY: Noncontributory. SOCIAL HISTORY: The patient does not smoke or drink alcohol. ALLERGIES: None. MEDICATIONS: See chart list for details. REVIEW OF SYSTEMS: Otherwise negative. PHYSICAL EXAMINATION: GENERAL: This is a pleasant woman, seen in her room. HEENT: Normocephalic and atraumatic. Sclerae anicteric. Oropharynx clear. NECK: Supple. CHEST: Clear to auscultation. CARDIOVASCULAR: Regular rate. ABDOMEN: Soft. Good bowel sounds. There is no organomegaly or tenderness. EXTREMITIES: Revealed no edema. LABORATORY DATA: Noted. ASSESSMENT: This patient presents with acute severe anemia with syncopal-type episode. The patient's previous blood count in this hospital was anemic as well but not this low. She has also developed azotemia which appears to be new since last time. Therefore it may be some degree of volume contraction as well. The patient needs to be volume resuscitated with fluids and blood products. In addition, potassium is high and that needs to come down. Morning labs will be checked again to repeat potassium level. Once the patient is stabilized, then endoscopy can be done to evaluate the upper gastrointestinal tract. The colonoscopy can be considered as outpatient complete the workup. The indications, risks, alternatives, and possible complications of endoscopy were explained to the patient and informed consent was obtained. RECOMMENDATIONS: 1. Keep the patient NPO. 2. IV fluids. 3. Repeat CBC. 4. Transfuse as needed. 5. Repeat potassium and creatinine. 6. Proton pump inhibitor. 7. Hold vitamin C. 8. Endoscopy once stabilized. 9. Colonoscopy at a later date. Thank you for asking me to participate in care this patient. Mandy Perez M.D. DR: Sandra JOB#: [id number] CC: ONESIMO
--- NOTE | 2018-12-13 01:30 | NUR ---
NURSE NOTES: Noted SR on compliance monitor with HR of 73. BP of 110/68 noted. Pt appears to be calm and comfortable, sleeping on the bed. No signs of distress noted at this time. Will continue to monitor.
[2018-12-13] MEDS: Albuterol/Ipratropium 3ml neb HHN SCH ×6 (03:12→23:16)
--- NOTE | 2018-12-13 04:00 | NUR ---
NURSE NOTES: Pt appears to be calm and comfortable. Denies any pain at this time. EKG done and indicates SR. No distress noted at this time.
[2018-12-13 05:48] LABS: BASOPHILS % (AUTO) 0.5 % (0.0-2.0); EOSINOPHILS % (AUTO) 0.3 % (0.0-3.0); HEMATOCRIT 33.3 % (37.0-47.0); HEMOGLOBIN 10.4 G/DL (12.0-16.0); MEAN CORPUSCULAR VOLUME 92 FL (80-99); MONOCYTES % (AUTO) 10.6 % (1.0-10.0); NEUTROPHILS % (AUTO) 74.5 % (45.0-75.0); PLATELET COUNT 408 K/UL (150-450); RED BLOOD COUNT 3.61 M/UL (4.20-5.40); RED CELL DISTRIBUTION WIDTH 15.9 % (11.6-14.8); WHITE BLOOD COUNT 15.5 K/UL (4.8-10.8)
[2018-12-13 06:46] LABS: ANION GAP 9 mmol/L (5-15); BLOOD UREA NITROGEN 38 mg/dL (7-18); CALCIUM 7.8 MG/DL (8.5-10.1); CARBON DIOXIDE 26 MMOL/L (21-32); CHLORIDE 108 MMOL/L (98-107); CREATININE 1.6 MG/DL (0.55-1.30); POTASSIUM 5.7 MMOL/L (3.5-5.1); SODIUM 143 MMOL/L (136-145)
--- NOTE | 2018-12-13 07:10 | NUR ---
HAND-OFF: Report given to STEVEN Harrison. No distress noted.
--- NOTE | 2018-12-13 07:12 | NUR ---
NURSE NOTES: Received bedside report from Candido RN. Pt. in bed, asleep but arousable. No sign of distress. NPO observed prior to EGD procedure this a.m. No grimacing noted. IV site at left AC #20g. in placed and left foot #20g. in placed. S/P x3 bags blood transfusion yesterday. No a/r noted. Will cont. to monitor.
[2018-12-13] MEDS: dilTIAZem HCl 60mg tab ORAL SCH ×4 (08:53→21:26)
[2018-12-13] MEDS: Docusate 100mg cap ORAL SCH ×2 (08:53→18:14)
[2018-12-13] MEDS: Milk of Magnesia 30ml Ud ORAL SCH (08:54)
[2018-12-13] MEDS: Metoprolol Succinate XL 25mg tab ORAL SCH (08:54)
[2018-12-13] MEDS ORDERED: Ascorbic Acid 500mg tab ORAL SCH (09:00)
[2018-12-13] MEDS ORDERED: Docusate 100mg cap ORAL SCH (09:00)
--- NOTE | 2018-12-13 09:00 | NUR ---
NURSE NOTES: Called twice Dr. Bowen office but unable to get through.
--- NOTE | 2018-12-13 09:20 | NUR ---
NURSE NOTES: Called Dr. Bowen at and nno regarding pt. K+. He ordered to changed IV to D5W at 50cc/hr. Order noted and carried out. Will cont. to monitor.
[2018-12-13] MEDS: Flonase Nasal Inhaler 16gm NASAL SCH ×2 (09:59→18:14)
[2018-12-13] MEDS: Pantoprazole Inj IV SCH ×3 (09:59→21:30)
--- NOTE | 2018-12-13 10:46 | Diagnostic Imaging Report ---
Indication: Dyspnea Comparison: 06/27/2018 A single view chest radiograph was obtained. Findings: Linear density in the right perihilar region noted. Borderline cardiomegaly is present. Bones are osteopenic. Aorta is calcified. IMPRESSION: Mild atelectasis right midlung. Borderline cardiomegaly
--- NOTE | 2018-12-13 11:05 | NUR ---
NURSE NOTES: Called Dr. Perez and spoke to him regarding pt. K+ and Dr. Bowen order. He told RN he will call radiology dept. and maintained NPO status. Will cont to monitor.
--- NOTE | 2018-12-13 11:31 | NUR ---
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 LGI BLEED . ELEVATED TROPONIN VS: BP 77/46, P 55, T 97.5, RR 18, SpO2 98 WBC 12.3, RBC 2.25, H&H 5.9/21.1, K 5.7, BUN 38, Cr 1.6, TROPONIN I 0.081 CXR: Mild atelectasis right midlung. IS:NS x1L IV ADMITTED TO SDU DCP: RETURN TO [facility]
--- NOTE | 2018-12-13 12:16 | Anethesia Preoperative Eval ---
Anesthesia Pre-op PMH/ROS General Date of Evaluation: December 13, 2018 Time of Evaluation: 12:09 Anesthesiologist: Kashmir ASA Score: ASA 3 Mallampati Score Class I : Soft palate, uvula, fauces, pillars visible Class II: Soft palate, uvula, fauces visible Class III: Soft palate, base of uvula visible Class IV: Only hard plate visible Mallampati Classification: Class III Surgeon: Carole Diagnosis: GI bleed Surgical Procedure: EGD Anesthesia History: none Family History: no anesthesia problems Allergies: Coded Allergies: No Known Allergies (Unverified , 06/05/14) Medications: see eMAR Patient NPO?: Yes Past Medical History Cardiovascular: Reports: HTN; Denies: CAD, ME, valve dz, arrhythmia, other Pulmonary: Denies: asthma, COPD, EDENILSON, other Gastrointestinal/Genitourinary: Reports: GERD, CRI; Denies: ESRD, other Neurologic/Psychiatric: Reports: dementia - mild; Denies: CVA, depression/anxiety, TIA, other Endocrine: Reports: hypothyroidism; Denies: DM, steroids, other HEENT: Reports: cataract (L), cataract (R); Denies: glaucoma, TUSCARORA (L), TUSCARORA (R), other Hematology/Immune: Reports: anemia Musculoskeletal/Integumentary: Reports: DJD; Denies: OA, RA, DDD, edema, other PMH Narrative: as above PSxH Narrative: see H&P Anesthesia Pre-op Phys. Exam Physician Exam Last Vital Signs Date Time Temp Pulse Resp B/P (MAP) Pulse Ox O2 Delivery O2 Flow Rate FiO2 12/13/18 12:00 Nasal Cannula 2.0 12/13/18 11:22 75 18 100 28 12/13/18 08:54 122/64 12/13/18 08:00 98.2 Constitutional: NAD Neurologic: other - unable ti obtaine Cardiovascular: RRR, no M/R/G Respiratory: CTA Gastrointestinal: S/NT/ND Airway Exam Mallampati Score: Class III MO: limited Neck: stiff ROM: limited Teeth: missing Dentures: no upper, no lower Anesthesia Pre-op A/P Labs Hematology Test 12/12/18 15:05 12/13/18 03:10 White Blood Count 12.3 K/UL (4.8-10.8) H 15.5 K/UL (4.8-10.8) H Red Blood Count 2.25 M/UL (4.20-5.40) L 3.61 M/UL (4.20-5.40) L Hemoglobin 5.9 G/DL (12.0-16.0) *L 10.4 G/DL (12.0-16.0) #L Hematocrit 21.1 % (37.0-47.0) L 33.3 % (37.0-47.0) #L Mean Corpuscular Volume 94 FL (80-99) 92 FL (80-99) Mean Corpuscular Hemoglobin 26.4 PG (27.0-31.0) L 28.8 PG (27.0-31.0) Mean Corpuscular Hemoglobin Concent 28.2 G/DL (32.0-36.0) L 31.2 G/DL (32.0-36.0) L Red Cell Distribution Width 19.0 % (11.6-14.8) H 15.9 % (11.6-14.8) H Platelet Count 480 K/UL (150-450) H 408 K/UL (150-450) Mean Platelet Volume 4.6 FL (6.5-10.1) L 5.0 FL (6.5-10.1) L Neutrophils (%) (Auto) % (45.0-75.0) 74.5 % (45.0-75.0) Lymphocytes (%) (Auto) % (20.0-45.0) 14.0 % (20.0-45.0) L Monocytes (%) (Auto) % (1.0-10.0) 10.6 % (1.0-10.0) H Eosinophils (%) (Auto) % (0.0-3.0) 0.3 % (0.0-3.0) Basophils (%) (Auto) % (0.0-2.0) 0.5 % (0.0-2.0) Differential Total Cells Counted 100 Neutrophils % (Manual) 77 % (45-75) H Lymphocytes % (Manual) 16 % (20-45) L Monocytes % (Manual) 5 % (1-10) Eosinophils % (Manual) 1 % (0-3) Basophils % (Manual) 1 % (0-2) Band Neutrophils 0 % (0-8) Nucleated Red Blood Cells 2 /100 WBC Platelet Estimate Increased H Platelet Morphology Normal Hypochromasia 2+ Anisocytosis 2+ Target Cells 1+ Coagulation Test 12/12/18 15:05 Prothrombin Time 11.7 SEC (9.30-11.50) H Prothromb Time International Ratio 1.1 (0.9-1.1) Activated Partial Thromboplast Time 25 SEC (23-33) Chemistry Test 12/12/18 15:05 12/12/18 16:30 12/13/18 03:10 Sodium Level 142 MMOL/L (136-145) 143 MMOL/L (136-145) Potassium Level 5.8 MMOL/L (3.5-5.1) H 5.7 MMOL/L (3.5-5.1) H Chloride Level 106 MMOL/L (98-107) 108 MMOL/L (98-107) H Carbon Dioxide Level 30 MMOL/L (21-32) 26 MMOL/L (21-32) Anion Gap 6 mmol/L (5-15) 9 mmol/L (5-15) Blood Urea Nitrogen 45 mg/dL (7-18) H 38 mg/dL (7-18) H Creatinine 2.2 MG/DL (0.55-1.30) H 1.6 MG/DL (0.55-1.30) H Estimat Glomerular Filtration Rate mL/min (>60) mL/min (>60) Glucose Level 163 MG/DL (74-106) H 94 MG/DL (74-106) Lactic Acid Level 3.90 mmol/L (0.4-2.0) H 1.70 mmol/L (0.66-2.22) Calcium Level 8.3 MG/DL (8.5-10.1) L 7.8 MG/DL (8.5-10.1) L Total Bilirubin 0.2 MG/DL (0.2-1.0) Aspartate Amino Transf (AST/SGOT) 19 U/L (15-37) Alanine Aminotransferase (ALT/SGPT) 15 U/L (12-78) Alkaline Phosphatase 129 U/L (46-116) H Total Creatine Kinase 236 U/L (26-308) Creatine Kinase MB 2.5 NG/ML (0.0-3.6) Creatine Kinase MB Relative Index 1.0 Troponin I 0.081 ng/mL (0.000-0.056) 0.038 ng/mL (0.000-0.056) Pro-B-Type Natriuretic Peptide 42730 pg/mL (0-125) H Total Protein 6.8 G/DL (6.4-8.2) Albumin 2.9 G/DL (3.4-5.0) L Globulin 3.9 g/dL Albumin/Globulin Ratio 0.7 (1.0-2.7) L Risk Assessment & Plan Assessment: ASA3 Plan: MAC Status Change Before Surgery: No Pre-Antibiotics Drug: as scheduled Zak Marlow MD December 13, 2018 12:16
[2018-12-13] MEDS ORDERED: fentaNYL 100 mcg/2 mL IV ONE ×2 (13:36→14:00)
[2018-12-13] MEDS ORDERED: NS 500ML IVPB ONE (13:40)
--- NOTE | 2018-12-13 13:51 | Cardiology Report ---
APPROVED REPORT EXAM: Two-dimensional and M-mode echocardiogram with Doppler and color Doppler. INDICATION CAD M-Mode DIMENSIONS IVSd0.8 (0.7-1.1cm)Left Atrium (MM)3.5 (1.6-4.0cm) LVDd4.4 (3.5-5.6cm)Aortic Root3.1 (2.0-3.7cm) PWd0.8 (0.7-1.1cm)Aortic Cusp Exc.1.9 (1.5-2.0cm) IVSs1.4 cm LVDs2.5 (2.5-4.0cm) PWs1.4 cm Normal left ventricular chamber size, systolic function and wall motion excep diastolic flattening of VS due to RV pressuer over load Left ventricular ejection fraction estimated to be 60-65%. Mild left ventricular hypertrophy by 2-D. No evidence of pericardial effusion. Left atrial size at upper limits of normal. Mild right atrial enlargement . Mild right ventricular enlargement . Aortic valve calcification with normal cusp excursion . Mildly thickened mitral valve leaflets with normal excursion. Mild mitral annulus and aortic root calcification. Pulmonic valve not well visualized. IVC at normal size with physiologic collapse . A color flow and spectral Doppler study was performed and revealed: Trace aortic insufficiency . Mitral diastolic velocities suggest reduced left ventricular relaxation c/w mild LV diastolic dysfunction (Grade I ) Mild mitral regurgitation. Moderate tricuspid regurgitation. Tricuspid systolic velocities suggests peak right ventricular systolic pressure of 51mmHg,consistent with moderate pulmonary hypertension . Mild pulmonic regurgitation present .
--- NOTE | 2018-12-13 13:58 | General Progress Note ---
Assessment/Plan Assessment/Plan: Assessment - mild hyperkalemia - GI Bleed - Syncope - Azotemia - Anemia Recommendations - NPO - IVF - monitor labs - EGD today - Low K diet Subjective Allergies: Coded Allergies: No Known Allergies (Unverified , 06/05/14) Subjective Feels OK no vomiting d/w PMD re labs NPO for EGD Objective Last 24 Hour Vital Signs Date Time Temp Pulse Resp B/P (MAP) Pulse Ox O2 Delivery O2 Flow Rate FiO2 12/13/18 12:00 Nasal Cannula 2.0 12/13/18 12:00 2.0 12/13/18 12:00 97.9 82 18 108/59 (75) 98 12/13/18 11:37 95 12/13/18 11:22 75 18 100 Nasal Cannula 2.0 12/13/18 11:09 78 18 99 Nasal Cannula 2.0 12/13/18 08:54 83 122/64 12/13/18 08:53 83 122/64 12/13/18 08:00 Nasal Cannula 2.0 12/13/18 08:00 98.2 83 18 122/64 (83) 95 12/13/18 08:00 2.0 12/13/18 07:43 81 12/13/18 07:30 80 18 100 Nasal Cannula 2.0 12/13/18 07:21 99 Nasal Cannula 2.0 12/13/18 07:20 82 16 99 Nasal Cannula 2.0 12/13/18 07:20 82 16 99 Nasal Cannula 2.0 12/13/18 04:00 2.0 12/13/18 04:00 78 12/13/18 04:00 97.9 77 28 108/73 (85) 100 12/13/18 04:00 Nasal Cannula 2.0 12/13/18 03:20 77 18 100 Nasal Cannula 2.0 12/13/18 03:12 74 24 100 Nasal Cannula 2.0 12/13/18 00:00 55 12/13/18 00:00 2.0 12/13/18 00:00 97.5 69 25 110/60 (77) 100 12/13/18 00:00 Nasal Cannula 2.0 12/12/18 23:24 54 20 100 Nasal Cannula 2.0 12/12/18 23:15 59 18 92 Nasal Cannula 2.0 28 12/12/18 20:44 73 127/78 12/12/18 20:23 Nasal Cannula 2.0 12/12/18 20:00 70 12/12/18 20:00 97.5 67 20 115/71 (86) 100 12/12/18 19:49 70 20 100 Nasal Cannula 2.0 28 12/12/18 19:41 69 20 94 Nasal Cannula 2.0 28 12/12/18 19:41 69 20 94 Nasal Cannula 2.0 28 12/12/18 18:19 97.8 80 18 109/60 100 Room Air 12/12/18 17:10 97.6 66 17 12/12/18 16:55 97.7 70 15 12/12/18 16:55 97.7 70 15 108/59 99 Room Air 12/12/18 16:00 97.9 76 17 98/70 99 Room Air 12/12/18 14:50 97.5 62 22 78/43 98 Room Air 12/12/18 14:40 97.5 55 18 77/46 (56) 98 Room Air Intake and Output 12/12/18 12/13/18 19:00 07:00 Intake Total 1000 ml 1295 ml Balance 1000 ml 1295 ml Intake IV Total 1000 ml 545 ml Blood Product 750 ml # Voids 1 2 # Bowel Movements 2 Laboratory Tests 12/12/18 15:05: White Blood Count 12.3H, Red Blood Count 2.25L, Hemoglobin 5.9*L, Hematocrit 21.1L, Mean Corpuscular Volume 94, Mean Corpuscular Hemoglobin 26.4L, Mean Corpuscular Hemoglobin Concent 28.2L, Red Cell Distribution Width 19.0H, Platelet Count 480H, Mean Platelet Volume 4.6L, Neutrophils (%) (Auto) , Lymphocytes (%) (Auto) , Monocytes (%) (Auto) , Eosinophils (%) (Auto) , Basophils (%) (Auto) , Differential Total Cells Counted 100, Neutrophils % ( Manual) 77H, Lymphocytes % (Manual) 16L, Monocytes % (Manual) 5, Eosinophils % ( Manual) 1, Basophils % (Manual) 1, Band Neutrophils 0, Nucleated Red Blood Cells 2, Platelet Estimate IncreasedH, Platelet Morphology Normal, Hypochromasia 2+, Anisocytosis 2+, Target Cells 1+, Prothrombin Time 11.7H, Prothromb Time International Ratio 1.1, Activated Partial Thromboplast Time 25, Sodium Level 142, Potassium Level 5.8H, Chloride Level 106, Carbon Dioxide Level 30, Anion Gap 6, Blood Urea Nitrogen 45H, Creatinine 2.2H, Estimat Glomerular Filtration Rate , Glucose Level 163H, Lactic Acid Level 3.90H, Calcium Level 8.3L, Total Bilirubin 0.2, Aspartate Amino Transf (AST/SGOT) 19, Alanine Aminotransferase (ALT/SGPT) 15, Alkaline Phosphatase 129H, Total Creatine Kinase 236, Creatine Kinase MB 2.5, Creatine Kinase MB Relative Index 1.0, Troponin I 0.081H, Pro-B-Type Natriuretic Peptide 16207X, Total Protein 6.8 , Albumin 2.9L, Globulin 3.9, Albumin/Globulin Ratio 0.7L 12/12/18 16:30: Lactic Acid Level 1.70, Urine Color Pale yellow, Urine Appearance Clear, Urine pH 5, Urine Specific [place] 1.015, Urine Protein 2+H, Urine Glucose (UA) Negative, Urine Ketones Negative, Urine Blood Negative, Urine Nitrite Negative, Urine Bilirubin Negative, Urine Urobilinogen Normal, Urine Leukocyte Esterase Negative, Urine RBC 2-4H, Urine WBC 0-2, Urine Squamous Epithelial Cells Few, Urine Bacteria Few, Urine Fine Granular Casts 0-2H 12/13/18 03:10: White Blood Count 15.5H, Red Blood Count 3.61L, Hemoglobin 10.4#L, Hematocrit 33.3#L, Mean Corpuscular Volume 92, Mean Corpuscular Hemoglobin 28.8, Mean Corpuscular Hemoglobin Concent 31.2L, Red Cell Distribution Width 15.9H, Platelet Count 408, Mean Platelet Volume 5.0L, Neutrophils (%) (Auto) 74.5, Lymphocytes (%) (Auto) 14.0L, Monocytes (%) (Auto) 10.6H, Eosinophils (%) (Auto ) 0.3, Basophils (%) (Auto) 0.5, Sodium Level 143, Potassium Level 5.7H, Chloride Level 108H, Carbon Dioxide Level 26, Anion Gap 9, Blood Urea Nitrogen 38H, Creatinine 1.6H, Estimat Glomerular Filtration Rate , Glucose Level 94, Calcium Level 7.8L, Troponin I 0.038, Digoxin Level < 0.2L Height (Feet): 5 Height (Inches): 3.00 Weight (Pounds): 179 Objective WDWN AA woman NCAT supple CTA RRR soft ND NT no edema non focal Mandy Perez MD December 13, 2018 13:58
[2018-12-13] MEDS ORDERED: Propofol 200mg/20ml IV ONE (14:00)
--- NOTE | 2018-12-13 14:00 | Pre-Procedure Note/Attestation ---
Pre-Procedure Note/Attestation Complete Prior to Procedure Planned Procedure: not applicable Procedure Narrative: EGD Indications for Procedure Pre-Operative Diagnosis: GI Bleed Attestation I attest that I discussed the nature of the procedure; its benefits; risks and complications; and alternatives (and the risks and benefits of such alternatives ), prior to the procedure, with the patient (or the patient's legal compliance representative dealer). I attest that, if there was a reasonable possibility of needing a blood transfusion, the patient (or the patient's legal compliance representative dealer) was given the [facility] standardized written summary, pursuant to the [place] Blood Safety Act ([place] Health and Safety Code # 1645, as amended). I attest that I re-evaluated the patient just prior to the surgery and that there has been no change in the patient's H&P, except as documented below: Mandy Perez MD December 13, 2018 14:00
--- NOTE | 2018-12-13 14:34 | Immediate Post-Op Evaluation ---
Immediate Post-Op Evalulation Immediate Post-Op Evalulation Procedure: EGD with Bx Date of Evaluation: December 13, 2018 Time of Evaluation: 14:31 IV Fluids: 200 Blood Products: none Estimated Blood Loss: min Urinary Output: none Blood Pressure Systolic: 112 - 62 Blood Pressure Diastolic: 62 Pulse Rate: 86 Respiratory Rate: 18 O2 Sat by Pulse Oximetry: 97 Temperature (Fahrenheit): 97.6 Pain Score (1-10): 1 Nausea: No Vomiting: No Complications none Patient Status: awake, patent, none Hydration Status: adequate Zak Marlow MD December 13, 2018 14:34
[2018-12-13] MEDS ORDERED: Sorbitol Solution UD 30ml ORAL SCH (14:45)
--- NOTE | 2018-12-13 16:00 | Cardiology Report ---
APPROVED REPORT EKG Measurement Heart [id number] Normal sinus rhythm Nonspecific T wave abnormality Abnormal ECG
--- NOTE | 2018-12-13 16:01 | Cardiology Report ---
APPROVED REPORT EKG Measurement Heart [id number] Normal sinus rhythm Nonspecific T wave abnormality Abnormal ECG
--- NOTE | 2018-12-13 17:12 | Endoscopy Procedure Note ---
Endoscopy Procedure Note General Indication for Procedure: GIB Procedures Performed: EGD Operative Findings/Diagnosis: gastritis Specimen: yes Pt Tolerated Procedure Well: Yes Estimated Blood Loss: none Anesthesia Anesthesiologist: Gracie Anesthesia: MAC Medications Medication Given: see anesthesia record Inserted Devices Implant(s) used?: No GI Core Measures 50 yrs or older w/o bx or poly: Not Applicable 10yrs. F/U recommended: Not Applicable If not recommended, why?: Mandy Perez MD December 13, 2018 17:12
--- NOTE | 2018-12-13 17:13 | Brief Operative Note ---
Immediate Post Operative Note Operative Note Chief Complaint: GIB Pre-op Diagnosis: GI Bleed Procedure: EGD bx Post-op Diagnosis: gastritis Surgeon: adrián Anesthesiologist: alma delia Specimen: yes Complications: none Condition: stable Fluids: per anesthesia Estimated Blood Loss: none Drains: none Implant(s) used?: No Mandy Perez MD December 13, 2018 17:13
[2018-12-13] MEDS ORDERED: 1/2 NS 1000ml IV ONE (17:21)
[2018-12-13] MEDS ORDERED: Tubing Blood Filter IV ONE (17:21)
[2018-12-13] MEDS ORDERED: Tubing IV Secondary IV ONE (17:21)
--- NOTE | 2018-12-13 18:45 | NUR ---
NURSE NOTES: Called Dr. Bowen regarding pt. HR 116-120. And told RN he will see the pt. shortly.
--- NOTE | 2018-12-13 18:55 | NUR ---
NURSE NOTES: Called Dr. Moreno regarding pt. A.Fib episode with HR 116-120 sustained. He ordered Diltiazem 20mg. IVP x 1. Will cont. to monitor.
[2018-12-13] MEDS ORDERED: dilTIAZem HCl 25mg/5ml Inj IVP SCH (19:00)
--- NOTE | 2018-12-13 19:03 | 48 Hour Post Anesthesia Eval ---
Post Anesthesia Evaluation Procedure: EGD with Bx Date of Evaluation: December 13, 2018 Time of Evaluation: 19:02 Blood Pressure Systolic: 126 0: 74 Pulse Rate: 68 Respiratory Rate: 20 Temperature (Fahrenheit): 97.6 O2 Sat by Pulse Oximetry: 98 Airway: patent Nausea: No Vomiting: No Pain Intensity: 2 Hydration Status: adequate Cardiopulmonary Status: stable Mental Status/LOC: patient returned to baseline Follow-up Care/Observations: n/a Post-Anesthesia Complications: none Follow-up care needed: N/A Zak Marlow MD December 13, 2018 19:03
--- NOTE | 2018-12-13 19:18 | NUR ---
HAND-OFF: Report given to Candido HARRIS. HR now is 80bpm. Pt. remain stable.
--- NOTE | 2018-12-13 19:20 | NUR ---
NURSE NOTES: Report received from STEVEN Harrison. Observed pt lying on bed, awake, denies any pain at this time. Pt appears to be having more energy than yesterday. Afib with 130s HR now converted back to SR with 80s. On 2L O2, no signs of SOB noted. IV on L AC 20G, intact and patent. R W 22G, intact and SL. Bed in the lowest position. Side rails up x3. Call light within reach. Will continue to monitor.
--- NOTE | 2018-12-13 20:30 | Procedure Note ---
DATE OF PROCEDURE: 12/13/2018 PROCEDURE: Upper gastrointestinal endoscopy with biopsy. SURGEON: Mandy Perez M.D. ANESTHESIA: Please see the separate anesthesiologist notes for details. PRE-ENDOSCOPIC DIAGNOSIS: Gastrointestinal bleeding. POST-ENDOSCOPIC DIAGNOSES: 1. Mild erosive gastritis. 2. No evidence of ulcers or other lesions to explain acute gastrointestinal bleeding. DESCRIPTION OF PROCEDURE: The procedure, its risks, indications, alternatives, and possible complications were explained to the patient and informed consent was obtained. The patient was then sedated in the left lateral decubitus position and a diagnostic upper endoscope was introduced into the oropharynx and advanced into the duodenum. The endoscope was then gradually withdrawn. The findings were as listed above. Biopsies of the antrum were sent to pathology for review. During the procedures, some occurrences of sudden rapid heart rate up to 127 was seen which quickly went down to 90 suggesting possible arrhythmia. The patient was sent to recovery in good condition. COMPLICATIONS: None. RECOMMENDATIONS: 1. Resume oral diet. 2. Colonoscopy in two days to evaluate the lower GI tract. 3. Consider cardiology consultation. 4. Monitor CBC. 5. Check and treat Helicobacter pylori if positive. Mandy Perez M.D. DR: Sandra JOB#: [id number] CC:
--- NOTE | 2018-12-13 21:15 | History and Physical Report ---
DATE OF ADMISSION: 12/12/2018 CHIEF COMPLAINT AND REASON FOR HOSPITALIZATION: The patient was admitted with GI bleed and hypotension. HISTORY OF PRESENT ILLNESS: The patient is a resident of an [facility] and apparently had a dizzy spell or near syncope and fall and came to the emergency room. She was found to have anemia. Heme-positive stool per rectum. She has been on anticoagulants for atrial fibrillation. She has a history of COPD, CHF, CVA, gait disorder, severe osteoarthritis, chronic pain syndrome, prior [id number] myocardial infarction, cognitive impairment, hyperlipidemia. ALLERGIES: None known. PAST SURGICAL HISTORY: Carotid endarterectomy and foot surgery HABITS: She was a smoker most of her adult life, quit a few years ago. SOCIAL HISTORY: She lives in an [facility]. She has family in [place] so I contacted Code Status, Full Code. SYSTEM REVIEW: HEENT: She has mild hearing deficiency. Vision is good. ENDOCRINE: No known diabetes or thyroid disease. However when she received steroids for COPD exacerbation, there was mild glucose intolerance in the past. PULMONARY: History of chronic obstructive pulmonary disease. She has occasional episodes and worsening bronchospasm recently. CARDIAC: History of hypertension, prior NC, atrial fibrillation paroxysmal, congestive heart failure, chronic leg edema GASTROINTESTINAL: She has had vague abdominal discomfort and prior treatment for gastritis. No gastrointestinal bleeding. GENITOURINARY: She is incontinent. NEUROLOGIC: CVA with cognitive impairment and mild right-sided weakness. MEDICATIONS: Prior to admission were reviewed include Tylenol 1000 mg every 8 hours, albuterol inhalation every 4 hours p.r.n., apixaban 2.5 mg b.i.d., artificial tears p.r.n., aspirin 81 mg daily, atorvastatin 10 mg at bedtime, Bentyl 20 mg every 8 hours as needed abdominal cramps, diltiazem 60 mg 4 times a day, DSS 100 mg two times a day, gabapentin 300 mg at bedtime, hydrocortisone cream p.r.n., Lasix 40 mg daily, Lexapro 5 mg daily, metoprolol succinate 25 mg daily, milk of magnesia p.r.n., MiraLAX as needed, omeprazole 20 mg daily, ProAir inhaler as needed, spironolactone 25 mg daily. PHYSICAL EXAMINATION: GENERAL: The patient is alert, obese lady, chronically ill-appearing, but in no acute distress at time my exam. VITAL SIGNS: Blood pressure 123/65, pulse 96, temperature 98.4. HEENT: Sclerae are nonicteric. Ocular motions intact in all directions. Oral mucosa moist. NECK: No adenopathy. LUNGS: Clear. HEART: Regular rhythm. I hear no murmur. ABDOMEN: Obese and soft. No organomegaly or tenderness. EXTREMITIES: Trace edema. Degenerative changes in the knees. NEUROLOGIC: She is alert and responsive. She is only a fair historian. Ocular motions intact in all directions. Smile symmetric. Tongue is midline. She moves all extremities. The right pediatric radiologist is slightly less than the left. PERTINENT LABORATORY DATA: On admission, hemoglobin 5.9, repeat 10.4 after 3 units of packed cells. Sodium 143, potassium 5.7, BUN 38, and creatinine 1.6. Earlier BUN 45, creatinine 2.2. She has a high BNP of 25,245. Troponin 0.081 and 0.038. IMPRESSION: 1. Gastrointestinal bleeding while on anticoagulants. 2. Paroxysmal atrial fibrillation. 3. Chronic diastolic congestive heart failure. 4. Acute kidney injury secondary to dehydration. 5. Hyperkalemia secondary to potassium retaining medications. 6. Chronic obstructive pulmonary disease . 7. Coronary artery disease. 8. Obesity. 9. Osteoarthritis. 10. History of prior cerebrovascular accident. PLAN: Anticoagulant are held in the setting of GI evaluation and endoscopy and likely colonoscopy. Watch serial CBCs. Her potassium should correct with hydration. She is a high risk patient and should be monitored on telemetry in view of her history of arrhythmias with cardiology as well as GI consultation. Pastor Bowen M.D. DR: Roque JOB#: [id number] CC:
--- NOTE | 2018-12-13 23:15 | Consultation ---
DATE OF CONSULTATION: 12/13/2018 CARDIOLOGY CONSULTATION CONSULTING PHYSICIAN: Jan Moreno M.D. REQUESTING PHYSICIAN: Pastor Bowen M.D. REASON FOR CONSULTATION: Rapid atrial fibrillation. HISTORY OF PRESENT ILLNESS: This 78-year-old female, presented to the hospital [facility] a [facility] following a syncopal episode. This occurred while she was on the toilet having a bowel movement. She became cold and clammy and somewhat lightheaded. She passed out. She was notably hypotensive. She was transferred to the emergency room where evaluation was initiated, volume resuscitation undertaken, and clinical symptoms improved. Today, she underwent endoscopy and was noted to have gastritis. Subsequent to the procedure, she developed rapid atrial fibrillation and I have been asked to assist with further care. On admission, she was noted to have an elevated lactic acid level that has recovered overnight with hydration. Her initial troponin level was slightly elevated at 0.081 and today has normalized to 0.038, and the patient has not complained of chest pain. PAST MEDICAL HISTORY: Hypertension with hypertensive heart disease, COPD, cerebrovascular disease with history of CVA and TIA, paroxysmal atrial fibrillation, anemia, chronic kidney disease, osteoarthritis, gastroesophageal reflux disease, hyperlipidemia, ataxia, coronary artery disease with history of myocardial infarction, history of respiratory failure, degenerative valve disease, pulmonary hypertension, diastolic dysfunction. ALLERGIES: None. FAMILY HISTORY: Noncontributory. SOCIAL HISTORY: Positive for prior smoking. No alcohol or substance abuse. ALLERGIES: None known. MEDICATIONS: Medications prior to admission, reviewed and reconciled. REVIEW OF SYSTEMS: A 10-point review of systems performed. All systems negative other than data outlined above. PHYSICAL EXAMINATION: VITAL SIGNS: Blood pressure 123/65, pulse 128, respiratory rate 20, afebrile, oxygen saturation on 2 L 98%. HEENT: Conjunctivae pink. Arcus senilis. Oropharynx clear. NECK: Supple. No bruits. LUNGS: Diminished breath sounds. No wheezing. CARDIAC: Irregularly irregular rhythm. Rapid rate. Normal S1, S2 with a 1/6 apical murmur in systole. ABDOMEN: Soft, slightly distended, nontender. No guarding or rebound. EXTREMITIES: No clubbing or cyanosis. No edema. NEUROLOGIC: Left-sided weakness. SKIN: Intact. LABORATORY DATA: White count 15, hemoglobin 10.4. Yesterday, hemoglobin was 5.9 prior to transfusion. Sodium 143, potassium 5.7, bicarbonate 26, BUN 38, creatinine 1.6. IMPRESSION: 1. Severe anemia due to GI bleeding and chronic kidney disease, now status post transfusion. 2. Paroxysmal atrial fibrillation with rapid ventricular response, likely precipitated due to NPO status and medication dosing earlier today. 3. Hyperkalemia due to chronic kidney disease. 4. Lactic acidosis, resolved. 5. Acute on chronic renal failure. 6. Acute myocardial ischemia, resolved. 7. Pulmonary hypertension. 8. COPD. 9. Chronic diastolic congestive heart failure. RECOMMENDATIONS: 1. IV diltiazem and resumption of oral dosing. Continue maintenance beta-román dosing and titrate accordingly. Continue cautious hydration. No plans for anticoagulation in view of bleeding risk. 2. Follow up potassium level. 3. Cardiac monitoring. 4. Consideration for amiodarone long-term to maintain sinus rhythm although underlying lung disease may be a limiting factor. Dhiraj Knapp JOB#: [id number] CC:
[2018-12-14] VITALS: BP 134/63
--- NOTE | 2018-12-14 00:30 | NUR ---
NURSE NOTES: Afib noted on lunchroom monitor with HR of 69. Pt is asymptomatic. Pt had bowel movement x2. Bed bath given. No signs of distress noted at this time.
[2018-12-14] MEDS: Albuterol/Ipratropium 3ml neb HHN SCH ×6 (02:50→23:01)
[2018-12-14 04:00] VITALS: BP 111/57
[2018-12-14 05:24] LABS: BASOPHILS % (AUTO) 0.5 % (0.0-2.0); HEMATOCRIT 32.4 % (37.0-47.0); HEMOGLOBIN 9.7 G/DL (12.0-16.0); LYMPHOCYTES % (AUTO) 8.8 % (20.0-45.0); MEAN CORPUSCULAR VOLUME 94 FL (80-99); MONOCYTES % (AUTO) 10.1 % (1.0-10.0); NEUTROPHILS % (AUTO) 79.7 % (45.0-75.0); PLATELET COUNT 357 K/UL (150-450); RED BLOOD COUNT 3.45 M/UL (4.20-5.40); RED CELL DISTRIBUTION WIDTH 16.6 % (11.6-14.8); WHITE BLOOD COUNT 15.8 K/UL (4.8-10.8)
[2018-12-14 05:34] LABS: ANION GAP 8 mmol/L (5-15); BLOOD UREA NITROGEN 19 mg/dL (7-18); CALCIUM 8.4 MG/DL (8.5-10.1); CARBON DIOXIDE 27 MMOL/L (21-32); CHLORIDE 108 MMOL/L (98-107); CREATININE 1.2 MG/DL (0.55-1.30); POTASSIUM 4.4 MMOL/L (3.5-5.1); SODIUM 143 MMOL/L (136-145)
--- NOTE | 2018-12-14 06:00 | NUR ---
NURSE NOTES: Left a message to regarding 6 beats of Vtach. Pt is asymptomatic, BP of 122/68 and HR of 92 noted. Pt appears calm and comfortable. Will continue to monitor.
--- NOTE | 2018-12-14 07:10 | NUR ---
HAND-OFF: Report given to charge nurse. No acute distress noted at this time.
--- NOTE | 2018-12-14 07:43 | NUR ---
NURSE NOTES: received patient report from saulo rn. patient is on bed awake. not in acute distress. had episode of 6 beats of vtach @0600, left a message to dr zelaya. patient is asymptomatic. will follow plan of care.
[2018-12-14 08:00] VITALS: BP 115/58
[2018-12-14] MEDS ORDERED: Nulytely 4L ORAL ONE (08:00)
[2018-12-14] MEDS: Docusate 100mg cap ORAL SCH ×2 (08:25→17:10)
[2018-12-14] MEDS: Milk of Magnesia 30ml Ud ORAL SCH (08:25)
[2018-12-14] MEDS: Pantoprazole Inj IV SCH ×2 (08:25→20:36)
[2018-12-14] MEDS: Metoprolol Succinate XL 25mg tab ORAL SCH (08:26)
[2018-12-14] MEDS: dilTIAZem HCl 60mg tab ORAL SCH ×4 (08:27→20:36)
[2018-12-14] MEDS: Flonase Nasal Inhaler 16gm NASAL SCH ×2 (08:33→17:11)
[2018-12-14 12:00] VITALS: BP 112/59
--- NOTE | 2018-12-14 13:22 | General Progress Note ---
Assessment/Plan Problem List: (1) COPD (chronic obstructive pulmonary disease) ICD Codes: J44.9 - Chronic obstructive pulmonary disease, unspecified SNOMED: 60653507 (2) CHF (congestive heart failure) ICD Codes: I50.9 - Heart failure, unspecified SNOMED: 82190270 (3) Paroxysmal A-fib ICD Codes: I48.0 - Paroxysmal atrial fibrillation SNOMED: 332828742 (4) Hypotension ICD Codes: I95.9 - Hypotension, unspecified SNOMED: 54720828 (5) SITA (acute kidney injury) ICD Codes: N17.9 - Acute kidney failure, unspecified SNOMED: 54938183 (6) Hyperkalemia ICD Codes: E87.5 - Hyperkalemia SNOMED: 69785069 (7) Anemia ICD Codes: D64.9 - Anemia, unspecified SNOMED: 820697702 Qualifiers: Qualified Codes: D64.9 - Anemia, unspecified (8) Lower GI bleed ICD Codes: K92.2 - Gastrointestinal hemorrhage, unspecified SNOMED: 30767271 (9) Elevated troponin ICD Codes: R74.8 - Abnormal levels of other serum enzymes SNOMED: 795503126, 559494476, 259931103 Assessment/Plan: prep for colon cont tele Subjective Constitutional: Reports: weakness HEENT: Reports: no symptoms Cardiovascular: Reports: no symptoms Respiratory: Reports: cough, SOB with excertion Gastrointestinal/Abdominal: Reports: no symptoms Genitourinary: Reports: no symptoms Neurologic/Psychiatric: Reports: pre-existing deficit Endocrine: Reports: no symptoms Hematologic/Lymphatic: Reports: anemia Allergies: Coded Allergies: No Known Allergies (Unverified , 06/05/14) Objective Last 24 Hour Vital Signs Date Time Temp Pulse Resp B/P (MAP) Pulse Ox O2 Delivery O2 Flow Rate FiO2 12/14/18 10:46 81 18 99 Nasal Cannula 2.0 12/14/18 10:38 83 18 94 Nasal Cannula 2.0 12/14/18 09:00 Nasal Cannula 2.0 12/14/18 09:00 2.0 12/14/18 08:27 103 115/58 12/14/18 08:26 103 115/58 12/14/18 08:00 98.1 103 25 115/58 (77) 95 12/14/18 08:00 92 12/14/18 07:20 79 18 100 Nasal Cannula 2.0 12/14/18 07:12 77 18 98 Nasal Cannula 2.0 12/14/18 07:11 99 Nasal Cannula 2.0 12/14/18 07:08 77 18 91 Room Air 21 12/14/18 04:00 Nasal Cannula 2.0 12/14/18 04:00 97.9 85 28 111/57 (75) 94 12/14/18 04:00 77 12/14/18 04:00 2.0 12/14/18 02:51 Nasal Cannula 12/14/18 02:50 Nasal Cannula 12/14/18 00:00 97.9 67 26 134/63 (86) 95 12/14/18 00:00 Nasal Cannula 2.0 12/14/18 00:00 2.0 12/14/18 00:00 68 12/13/18 23:27 89 20 97 Nasal Cannula 2.0 12/13/18 23:20 96 Nasal Cannula 2.0 12/13/18 23:16 79 18 96 Nasal Cannula 2.0 12/13/18 21:26 87 114/66 12/13/18 20:00 2.0 12/13/18 20:00 97.7 87 22 114/66 (82) 99 12/13/18 20:00 Nasal Cannula 2.0 12/13/18 19:41 83 12/13/18 19:11 82 12/13/18 19:03 68 20 98 12/13/18 19:00 96 123/65 12/13/18 18:55 128 Nasal Cannula 2.0 12/13/18 18:55 Nasal Cannula 12/13/18 18:15 96 123/65 12/13/18 16:00 98.4 96 19 123/65 (84) 99 12/13/18 16:00 2.0 12/13/18 16:00 Nasal Cannula 2.0 12/13/18 15:31 79 16 100 Nasal Cannula 2.0 12/13/18 15:21 73 16 99 Nasal Cannula 2.0 12/13/18 15:18 92 12/13/18 15:15 97.2 91 18 119/63 95 Nasal Cannula 3 12/13/18 15:00 87 20 117/66 95 Nasal Cannula 3 12/13/18 14:50 84 15 118/63 95 Nasal Cannula 3 12/13/18 14:40 89 18 110/61 95 Nasal Cannula 3 12/13/18 14:35 88 17 112/64 94 Nasal Cannula 3 12/13/18 14:34 86 18 97 12/13/18 14:28 97.6 92 20 117/64 96 Nasal Cannula 3 Intake and Output 12/13/18 12/14/18 19:00 07:00 Intake Total 550 ml 850 ml Output Total 850 ml Balance -300 ml 850 ml Intake Oral 400 ml 300 ml IV Total 150 ml 550 ml Output Urine Total 850 ml # Voids 3 # Bowel Movements 6 Laboratory Tests 12/14/18 03:20: White Blood Count 15.8H, Red Blood Count 3.45L, Hemoglobin 9.7L, Hematocrit 32.4L, Mean Corpuscular Volume 94, Mean Corpuscular Hemoglobin 28.2, Mean Corpuscular Hemoglobin Concent 30.1L, Red Cell Distribution Width 16.6H, Platelet Count 357, Mean Platelet Volume 5.1L, Neutrophils (%) (Auto) 79.7H, Lymphocytes (%) (Auto) 8.8L, Monocytes (%) (Auto) 10.1H, Eosinophils (%) (Auto) 1.0, Basophils (%) (Auto) 0.5, Sodium Level 143, Potassium Level 4.4, Chloride Level 108H, Carbon Dioxide Level 27, Anion Gap 8, Blood Urea Nitrogen 19H, Creatinine 1.2, Estimat Glomerular Filtration Rate , Glucose Level 124H, Calcium Level 8.4L Height (Feet): 5 Height (Inches): 3.00 Weight (Pounds): 180 General Appearance: no apparent distress, alert EENT: normal ENT inspection Cardiovascular: normal rate, other - pac's Abdomen: non tender, soft Extremities: non-tender Edema: no edema noted Arm (L), no edema noted Arm (R), no edema noted Leg (L), no edema noted Leg (R), no edema noted Pedal (L), no edema noted Pedal (R), no edema noted Generalized Pastor Bowen MD December 14, 2018 13:22
[2018-12-14 16:00] VITALS: BP 109/55
--- NOTE | 2018-12-14 18:02 | NUR ---
NURSE NOTES: LEFT A MESSAGE TO DR MILLS REGARDING PATIENT hR PAUSE FOR 2.8 SEconds @ 1715 and another 2.8 @ 172, that patient is asymptomatic and not in acute distress. awaits callback and new order.
--- NOTE | 2018-12-14 18:10 | NUR ---
NURSE NOTES: dr zelaya made aware of patient HR 40 @ 1804, pause of 2.8 seconds @ 1715 and another 2.8 seconds pause @ 1720. that patient is asymptomatic and not in acute distress.per dr zealya he will come back to see the patient tonight. no new orders received.
[2018-12-14] MEDS ORDERED: Bisacodyl EC 5mg tab ORAL SCH (18:45)
[2018-12-14] MEDS ORDERED: Magnesium Citrate Liq Btl ORAL SCH (18:45)
[2018-12-14] MEDS ORDERED: Fleet's Enema 133ml RECTAL SCH (18:45)
--- NOTE | 2018-12-14 19:27 | NUR ---
HAND-OFF: Report given to arpita hill.
--- NOTE | 2018-12-14 19:30 | NUR ---
NURSE NOTES: Received patient from Sabine HARRIS. Patient is in bed with no signs of distress. Bed is at its lowest position, call light in reach, and X3 bed rails up. Will continue to monitor.
[2018-12-14 20:00] VITALS: BP 114/58
--- NOTE | 2018-12-14 20:31 | General Progress Note ---
Assessment/Plan Assessment/Plan: Assessment - mild hyperkalemia - resolved - GI Bleed - negative EGD - Syncope - Azotemia - resolved - Anemia Recommendations - NPO - IVF - monitor labs - change GI prep to Mag Citrate based - Low K diet - colonoscopy tomorrow Subjective Allergies: Coded Allergies: No Known Allergies (Unverified , 06/05/14) Subjective No new Sx BM x 1 unable to drink golytely Objective Last 24 Hour Vital Signs Date Time Temp Pulse Resp B/P (MAP) Pulse Ox O2 Delivery O2 Flow Rate FiO2 12/14/18 20:00 99.8 91 24 114/58 (76) 98 12/14/18 20:00 Nasal Cannula 2.0 12/14/18 20:00 2.0 12/14/18 19:20 83 18 99 Nasal Cannula 2.0 28 12/14/18 19:13 94 Nasal Cannula 2.0 12/14/18 19:12 87 20 94 Nasal Cannula 2.0 12/14/18 19:11 87 20 94 Nasal Cannula 2.0 12/14/18 17:10 76 109/55 12/14/18 16:00 97.2 78 24 109/55 (73) 96 12/14/18 16:00 2.0 12/14/18 16:00 Nasal Cannula 2.0 12/14/18 16:00 76 12/14/18 14:46 81 18 100 Nasal Cannula 2.0 12/14/18 14:39 81 18 94 Nasal Cannula 2.0 12/14/18 13:47 92 121/61 12/14/18 12:15 85 12/14/18 12:00 Nasal Cannula 2.0 12/14/18 12:00 98.3 81 25 112/59 (76) 100 12/14/18 12:00 2.0 12/14/18 10:46 81 18 99 Nasal Cannula 2.0 28 12/14/18 10:38 83 18 94 Nasal Cannula 2.0 12/14/18 09:00 Nasal Cannula 2.0 12/14/18 09:00 2.0 12/14/18 08:27 103 115/58 12/14/18 08:26 103 115/58 12/14/18 08:00 98.1 103 25 115/58 (77) 95 12/14/18 08:00 92 12/14/18 07:20 79 18 100 Nasal Cannula 2.0 12/14/18 07:12 77 18 98 Nasal Cannula 2.0 12/14/18 07:11 99 Nasal Cannula 2.0 12/14/18 07:08 77 18 91 Room Air 21 12/14/18 04:00 Nasal Cannula 2.0 12/14/18 04:00 97.9 85 28 111/57 (75) 94 12/14/18 04:00 77 12/14/18 04:00 2.0 12/14/18 02:51 Nasal Cannula 12/14/18 02:50 Nasal Cannula 12/14/18 00:00 97.9 67 26 134/63 (86) 95 12/14/18 00:00 Nasal Cannula 2.0 12/14/18 00:00 2.0 12/14/18 00:00 68 12/13/18 23:27 89 20 97 Nasal Cannula 2.0 12/13/18 23:20 96 Nasal Cannula 2.0 12/13/18 23:16 79 18 96 Nasal Cannula 2.0 12/13/18 21:26 87 114/66 Intake and Output 12/13/18 12/14/18 19:00 07:00 Intake Total 550 ml 850 ml Output Total 850 ml Balance -300 ml 850 ml Intake Oral 400 ml 300 ml IV Total 150 ml 550 ml Output Urine Total 850 ml # Voids 3 # Bowel Movements 6 Laboratory Tests 12/14/18 03:20: White Blood Count 15.8H, Red Blood Count 3.45L, Hemoglobin 9.7L, Hematocrit 32.4L, Mean Corpuscular Volume 94, Mean Corpuscular Hemoglobin 28.2, Mean Corpuscular Hemoglobin Concent 30.1L, Red Cell Distribution Width 16.6H, Platelet Count 357, Mean Platelet Volume 5.1L, Neutrophils (%) (Auto) 79.7H, Lymphocytes (%) (Auto) 8.8L, Monocytes (%) (Auto) 10.1H, Eosinophils (%) (Auto) 1.0, Basophils (%) (Auto) 0.5, Sodium Level 143, Potassium Level 4.4, Chloride Level 108H, Carbon Dioxide Level 27, Anion Gap 8, Blood Urea Nitrogen 19H, Creatinine 1.2, Estimat Glomerular Filtration Rate , Glucose Level 124H, Calcium Level 8.4L Height (Feet): 5 Height (Inches): 3.00 Weight (Pounds): 180 Objective WDWN AA woman NCAT supple CTA RRR soft ND NT no edema non focal Mandy Perez MD December 14, 2018 20:31
[2018-12-15] VITALS: BP 110/62
[2018-12-15] MEDS: Albuterol/Ipratropium 3ml neb HHN SCH ×6 (02:48→23:09)
--- NOTE | 2018-12-15 03:45 | Progress Note ---
DATE: 12/14/2018 NOTE: INCOMPLETE DICTATION CARDIOLOGY PROGRESS NOTE SUBJECTIVE: The patient has been undergoing preparation for colonoscopy. Cardiac monitoring remains in place. She has had her atrial fibrillation with episodes of increased ventricular rate and nonsustained ventricular tachycardia. OBJECTIVE: VITAL SIGNS: Blood pressure 115/58, pulse 103, and respirations 25. Afebrile. LUNGS: Clear. CARDIAC: Irregularly irregular. Normal S1, S2. A 1/6 systolic apical murmur. ABDOMEN: Soft. EXTREMITIES: No edema. LABORATORY DATA: Cultures remain negative. White count 15.8 and hemoglobin 9.7. Potassium 4.4, BUN 19, and creatinine 1.2. IMPRESSION: 1. Anemia s/p GI bleed 2. Paroxysmal AFib 3. Hypertensive heart disease with chronic CHF. 4. Acute/chronic diastolic CHF. 5. Conduction system disease. PLAN: Monitor hemoglobin and transfuse as needed. Proceed with colonoscopy once cardiovascular parameters have been stabilized. Maintenance IVF. Titration of cardiovascular regimen. Jan Moreno M.D. DR: MINA JOB#: [id number] CC: ONESIMO
[2018-12-15 04:00] VITALS: BP 117/67
[2018-12-15 05:43] LABS: BASOPHILS % (AUTO) 6.2 % (0.0-2.0); EOSINOPHILS % (AUTO) 0.2 % (0.0-3.0); HEMATOCRIT 34.7 % (37.0-47.0); HEMOGLOBIN 10.4 G/DL (12.0-16.0); LYMPHOCYTES % (AUTO) 22.2 % (20.0-45.0); MEAN CORPUSCULAR VOLUME 93 FL (80-99); MONOCYTES % (AUTO) 4.5 % (1.0-10.0); NEUTROPHILS % (AUTO) 66.8 % (45.0-75.0); PLATELET COUNT 414 K/UL (150-450); RED BLOOD COUNT 3.72 M/UL (4.20-5.40); RED CELL DISTRIBUTION WIDTH 16.4 % (11.6-14.8); WHITE BLOOD COUNT 13.2 K/UL (4.8-10.8)
[2018-12-15 05:57] LABS: ANION GAP 17 mmol/L (5-15); BLOOD UREA NITROGEN 39 mg/dL (7-18); CALCIUM 7.7 MG/DL (8.5-10.1); CARBON DIOXIDE 18 MMOL/L (21-32); CHLORIDE 108 MMOL/L (98-107); CREATININE 1.7 MG/DL (0.55-1.30); SODIUM 143 MMOL/L (136-145)
[2018-12-15] MEDS ORDERED: Fleet's Enema 133ml RECTAL SCH (06:00)
[2018-12-15] MEDS ORDERED: Atropine Inj 1mg/10ml Syr IV PRN (07:15)
[2018-12-15] MEDS ORDERED: fentaNYL 100 mcg/2 mL IV PRN (07:15)
[2018-12-15] MEDS ORDERED: DiphenhydrAMINE 50mg/ml Inj IVP PRN (07:15)
--- NOTE | 2018-12-15 07:15 | NUR ---
NURSE NOTES: Received patient from STEVEN Powers. Patient HR 130 when she is coughing and 110's when she is at rest on the cardiac rehabilitation program director. Patient's temperature, oxygen saturation, and blood pressure stable at this time. Patient denies pain. Patient alert and oriented when awake. Patient on 2L nasal cannula with oxygen saturation of 100%. Patient had episodes of V tach and pauses in cardiac function x2 yesterday. Dr Moreno is aware. Patient is NPO at this time for colonoscopy. Patient's BM is clear. Will follow up. Patient skin intact. Patient has a left antecubital 20G PIV and right wrist 22G PIV that are patent and saline locked at this time. Patient has a potassium level of 6.0 this morning[address] Will notify Dr Bowen at this time.
--- NOTE | 2018-12-15 07:16 | Anethesia Preoperative Eval ---
Anesthesia Pre-op PMH/ROS General Date of Evaluation: December 15, 2018 Time of Evaluation: 07:10 Anesthesiologist: shaheen ASA Score: ASA 4 Mallampati Score Class I : Soft palate, uvula, fauces, pillars visible Class II: Soft palate, uvula, fauces visible Class III: Soft palate, base of uvula visible Class IV: Only hard plate visible Mallampati Classification: Class III Surgeon: adrián Diagnosis: lgib Surgical Procedure: colonoscopy Social History: smoking - nonsmoker Family History: no anesthesia problems Allergies: Coded Allergies: No Known Allergies (Unverified , 06/05/14) Medications: see eMAR Patient NPO?: Yes Past Medical History Cardiovascular: Reports: HTN, SC, arrhythmia, other - pacemaker, syncope, chf Pulmonary: Reports: COPD, other - pneumonia Gastrointestinal/Genitourinary: Reports: GERD, CRI, other - neurogenic bladder , lgib Neurologic/Psychiatric: Reports: CVA, other - generalized, right hemiplegia Musculoskeletal/Integumentary: Reports: OA Anesthesia Pre-op Phys. Exam Physician Exam Last Vital Signs Date Time Temp Pulse Resp B/P (MAP) Pulse Ox O2 Delivery O2 Flow Rate FiO2 12/15/18 07:04 104 19 98 Nasal Cannula 2.0 28 12/15/18 04:00 99.2 117/67 (84) Airway Exam Mallampati Score: Class III Anesthesia Pre-op A/P Labs Hematology Test 12/15/18 03:45 White Blood Count 13.2 K/UL (4.8-10.8) H Red Blood Count 3.72 M/UL (4.20-5.40) L Hemoglobin 10.4 G/DL (12.0-16.0) L Hematocrit 34.7 % (37.0-47.0) L Mean Corpuscular Volume 93 FL (80-99) Mean Corpuscular Hemoglobin 28.0 PG (27.0-31.0) Mean Corpuscular Hemoglobin Concent 29.9 G/DL (32.0-36.0) L Red Cell Distribution Width 16.4 % (11.6-14.8) H Platelet Count 414 K/UL (150-450) Mean Platelet Volume 4.6 FL (6.5-10.1) L Neutrophils (%) (Auto) 66.8 % (45.0-75.0) Lymphocytes (%) (Auto) 22.2 % (20.0-45.0) Monocytes (%) (Auto) 4.5 % (1.0-10.0) Eosinophils (%) (Auto) 0.2 % (0.0-3.0) Basophils (%) (Auto) 6.2 % (0.0-2.0) H Chemistry Test 12/15/18 03:45 Sodium Level 143 MMOL/L (136-145) Potassium Level 6.0 MMOL/L (3.5-5.1) *H Chloride Level 108 MMOL/L (98-107) H Carbon Dioxide Level 18 MMOL/L (21-32) L Anion Gap 17 mmol/L (5-15) H Blood Urea Nitrogen 39 mg/dL (7-18) H Creatinine 1.7 MG/DL (0.55-1.30) H Estimat Glomerular Filtration Rate mL/min (>60) Glucose Level 56 MG/DL (74-106) L Calcium Level 7.7 MG/DL (8.5-10.1) L Risk Assessment & Plan Assessment: asa4 Plan: Anahy Paula MD December 15, 2018 07:16
--- NOTE | 2018-12-15 07:32 | NUR ---
NURSE NOTES: message left for Dr Bowen regarding potassium of 6.0. Awaiting call back.
--- NOTE | 2018-12-15 07:43 | NUR ---
HAND-OFF: Report given to Bonnie.
[2018-12-15 08:00] VITALS: BP 117/68
--- NOTE | 2018-12-15 08:34 | NUR ---
NURSE NOTES: Dr. Bowen ordered Lasix 40mg IV once for K of 6.0.
[2018-12-15] MEDS: Metoprolol Succinate XL 25mg tab ORAL SCH (08:46)
[2018-12-15] MEDS: Pantoprazole Inj IV SCH ×2 (08:46→21:12)
[2018-12-15] MEDS: dilTIAZem HCl 60mg tab ORAL SCH ×4 (08:47→21:12)
[2018-12-15] MEDS: Docusate 100mg cap ORAL SCH ×2 (08:48→17:43)
[2018-12-15] MEDS: Flonase Nasal Inhaler 16gm NASAL SCH ×2 (08:48→17:43)
[2018-12-15] MEDS: Milk of Magnesia 30ml Ud ORAL SCH (08:48)
[2018-12-15 09:00] LABS: ANION GAP 8 mmol/L (5-15); BLOOD UREA NITROGEN 11 mg/dL (7-18); CARBON DIOXIDE 29 MMOL/L (21-32); CHLORIDE 109 MMOL/L (98-107); POTASSIUM 4.4 MMOL/L (3.5-5.1); SODIUM 145 MMOL/L (136-145)
--- NOTE | 2018-12-15 09:45 | NUR ---
NURSE NOTES: Patient cleaned at this time. All linens replaced. Patient temp now 99.0 Fahrenheit. Cooling measures applied.
--- NOTE | 2018-12-15 10:23 | General Progress Note ---
Assessment/Plan Problem List: (1) COPD (chronic obstructive pulmonary disease) ICD Codes: J44.9 - Chronic obstructive pulmonary disease, unspecified SNOMED: 59286713 (2) CHF (congestive heart failure) ICD Codes: I50.9 - Heart failure, unspecified SNOMED: 88932679 (3) Paroxysmal A-fib ICD Codes: I48.0 - Paroxysmal atrial fibrillation SNOMED: 391410165 (4) Hypotension ICD Codes: I95.9 - Hypotension, unspecified SNOMED: 05168806 (5) SITA (acute kidney injury) ICD Codes: N17.9 - Acute kidney failure, unspecified SNOMED: 29104262 (6) Hyperkalemia ICD Codes: E87.5 - Hyperkalemia SNOMED: 20046568 (7) Anemia ICD Codes: D64.9 - Anemia, unspecified SNOMED: 056983436 Qualifiers: Qualified Codes: D64.9 - Anemia, unspecified (8) Lower GI bleed ICD Codes: K92.2 - Gastrointestinal hemorrhage, unspecified SNOMED: 63515592 (9) Elevated troponin ICD Codes: R74.8 - Abnormal levels of other serum enzymes SNOMED: 219957333, 689787516, 001390994 Assessment/Plan: prep for colon cont tele K 6 repeat nl, lasix restarted Subjective HEENT: Reports: no symptoms Cardiovascular: Reports: irregular heart rate Respiratory: Reports: cough, SOB with excertion Gastrointestinal/Abdominal: Reports: blood in stool Genitourinary: Reports: incontinence Neurologic/Psychiatric: Reports: pre-existing deficit Endocrine: Reports: no symptoms Hematologic/Lymphatic: Reports: anemia Allergies: Coded Allergies: No Known Allergies (Unverified , 06/05/14) Objective Last 24 Hour Vital Signs Date Time Temp Pulse Resp B/P (MAP) Pulse Ox O2 Delivery O2 Flow Rate FiO2 12/15/18 09:10 99.0 12/15/18 08:47 107 117/68 12/15/18 08:46 107 117/68 12/15/18 08:00 100.1 107 20 117/68 (84) 94 12/15/18 08:00 2.0 12/15/18 08:00 Nasal Cannula 2.0 12/15/18 07:31 108 12/15/18 07:04 104 19 98 Nasal Cannula 2.0 28 12/15/18 06:54 103 17 95 Nasal Cannula 2.0 28 12/15/18 06:54 95 Nasal Cannula 2.0 28 12/15/18 04:00 109 12/15/18 04:00 99.2 96 24 117/67 (84) 97 12/15/18 04:00 Nasal Cannula 2.0 12/15/18 04:00 2.0 12/15/18 02:59 85 18 98 Nasal Cannula 2.0 28 12/15/18 02:48 82 18 95 Nasal Cannula 2.0 28 12/15/18 00:00 99.0 105 24 110/62 (78) 97 12/15/18 00:00 105 12/15/18 00:00 Nasal Cannula 2.0 12/14/18 23:15 86 18 99 Nasal Cannula 2.0 28 12/14/18 23:01 89 18 95 Nasal Cannula 2.0 28 12/14/18 20:36 90 110/57 12/14/18 20:00 99.8 91 24 114/58 (76) 98 12/14/18 20:00 Nasal Cannula 2.0 12/14/18 20:00 2.0 12/14/18 19:59 93 12/14/18 19:20 83 18 99 Nasal Cannula 2.0 12/14/18 19:13 94 Nasal Cannula 2.0 12/14/18 19:12 87 20 94 Nasal Cannula 2.0 12/14/18 19:11 87 20 94 Nasal Cannula 2.0 12/14/18 17:10 76 109/55 12/14/18 16:00 97.2 78 24 109/55 (73) 96 12/14/18 16:00 2.0 12/14/18 16:00 Nasal Cannula 2.0 12/14/18 16:00 76 12/14/18 14:46 81 18 100 Nasal Cannula 2.0 28 12/14/18 14:39 81 18 94 Nasal Cannula 2.0 12/14/18 13:47 92 121/61 12/14/18 12:15 85 12/14/18 12:00 Nasal Cannula 2.0 12/14/18 12:00 98.3 81 25 112/59 (76) 100 12/14/18 12:00 2.0 12/14/18 10:46 81 18 99 Nasal Cannula 2.0 28 12/14/18 10:38 83 18 94 Nasal Cannula 2.0 28 Intake and Output 12/14/18 12/15/18 19:00 07:00 Intake Total 1500 ml Balance 1500 ml Intake Oral 1200 ml IV Total 300 ml # Voids 2 # Bowel Movements 1 7 Laboratory Tests 12/15/18 03:45: White Blood Count 13.2H, Red Blood Count 3.72L, Hemoglobin 10.4L, Hematocrit 34.7L, Mean Corpuscular Volume 93, Mean Corpuscular Hemoglobin 28.0, Mean Corpuscular Hemoglobin Concent 29.9L, Red Cell Distribution Width 16.4H, Platelet Count 414, Mean Platelet Volume 4.6L, Neutrophils (%) (Auto) 66.8, Lymphocytes (%) (Auto) 22.2, Monocytes (%) (Auto) 4.5, Eosinophils (%) (Auto) 0.2, Basophils (%) (Auto) 6.2H, Sodium Level 143, Potassium Level 6.0*H, Chloride Level 108H, Carbon Dioxide Level 18L, Anion Gap 17H, Blood Urea Nitrogen 39H, Creatinine 1.7H, Estimat Glomerular Filtration Rate , Glucose Level 56L, Calcium Level 7.7L 12/15/18 08:36: Sodium Level 145, Potassium Level 4.4, Chloride Level 109H, Carbon Dioxide Level 29, Anion Gap 8, Blood Urea Nitrogen 11, Creatinine 1.0, Estimat Glomerular Filtration Rate , Glucose Level 91, Calcium Level 9.0 Height (Feet): 5 Height (Inches): 3.00 Weight (Pounds): 180 General Appearance: WD/WN, no apparent distress EENT: normal ENT inspection Neck: normal alignment Cardiovascular: regularly irregular Respiratory/Chest: rhonchi - bilaterally Abdomen: non tender, soft Extremities: other - no edema Pastor Bowen MD December 15, 2018 10:23
--- NOTE | 2018-12-15 11:14 | Coder Physician Query ---
Clarification is required for compliance, coding accuracy, and to reflect severity of illness for this patient Dear Dr. Jan Moreno Date: 12/15/18 Weight Engineer/CDS Name: Tracey Duncan Clinical Documentation States: Cardiology consult 12/13: 78-year-old female, [facility] following a syncopal episode...She became cold and clammy... She was notably hypotensive. She was transferred to the emergency room where evaluation was initiated, volume resuscitation undertaken, and clinical symptoms improved...Severe anemia due to GI bleeding and chronic kidney disease , now status post transfusion...Acute myocardial ischemia, resolved Troponin: 12/12 0.081 12/13 0.038 EKG: Nonspecific T wave abnormality Abnormal ECG Please respond to the following question: Is there a diagnosis specific to these symptoms or values? If so please state below. PHYSICIAN RESPONSE: [] Type 2 Myocardial Infarction due to demand mismatch [] STEMI [] NSTEMI [] Myocardial ischemia associated with Hemorrhagic shock [] Non-CO troponin elevation [] Other [] Unknown Present on Admission: [] Yes [] No [] Clinically Undetermined Physician signature Date Please also document in your Progress Notes and/or Discharge Summary and indicate if the condition was present on admission. MTDD
--- NOTE | 2018-12-15 11:25 | Coder Physician Query ---
Clarification is required for compliance, coding accuracy, and to reflect severity of illness for this patient Dear Dr. Pastor Bowen Date: 12/15/18 Weatherization Coordinator/CDS Name: Tracey Duncan Clinical Documentation States: Cardiology consult 12/13: 78-year-old female, presented to the hospital yesterday from a assisted facility following a syncopal episode...She became cold and clammy...She was notably hypotensive. She was transferred to the emergency room where evaluation was initiated, volume resuscitation undertaken, and clinical symptoms improved...Severe anemia due to GI bleeding and chronic kidney disease , now status post transfusion...Acute myocardial ischemia, resolved Hb: 12/12 5.9, 12/13 10.4 Treatment: Volume resuscitation, transfusion of 3 units RBCs on 12/12 Kindly specify the type of anemia and any associated clinical conditions. PHYSICIAN RESPONSE: [x] Acute blood loss anemia [x] Coagulopathy with hemorrhage secondary to anticoagulant therapy [] Acute blood loss anemia with hemorrhagic shock [] Other anemia: [] Other: [] Unknown Present on Admission: [] Yes [] No [] Clinically Undetermined Physician signature Date Please also document in your Progress Notes and/or Discharge Summary and indicate if the condition was present on admission. KYD
[2018-12-15] MEDS ORDERED: D5 1/2NS 1,000 ML IV SCH (11:33)
[2018-12-15 12:00] VITALS: BP 110/57
--- NOTE | 2018-12-15 12:26 | NUR ---
RADIOLOGY DEPT., CHEST X-RAY COMPLETED.-P.DYE
--- NOTE | 2018-12-15 12:34 | Diagnostic Imaging Report ---
Indication: Shortness of breath Technique: One view of the chest Comparison: 12/12/2018 Findings: Less optimal inspiration currently. There is bilateral mild interstitial congestion which appears to be new or increased since prior study. There is likely a small amount of pleural fluid at the lung bases. The heart is borderline enlarged. Impression: Mild interstitial congestion, new since prior study 12/12/2018 Possible small bilateral pleural effusions
--- NOTE | 2018-12-15 13:09 | NUR ---
NURSE NOTES: Patient had an episode of paused heart rhythm for 3.25 seconds at 1216 and junctional sinus bradycardia at 1232. Left message for Dr Moreno. Also left message regarding the second dose of Lasix. Patient received 40mg IV Lasix this morning. Need clarification regarding whether Dr Moreno wishes to administer another dose.
--- NOTE | 2018-12-15 14:37 | NUR ---
NURSE NOTES: Spoke with Dr Moreno. He discontinued the IV lasix that he ordered. He is aware of the heart rhythm pauses. No further orders at this time.
--- NOTE | 2018-12-15 15:02 | NUR ---
NURSE NOTES: Dr zelaya asked for more accurate intake and output. Patient has purewick. Left message for Dr Bowen to get order for Ramirez.
--- NOTE | 2018-12-15 15:04 | NUR ---
NURSE NOTES: Dr Bowen called back. He does not want a hicks inserted at this time.
[2018-12-15 16:00] VITALS: BP 93/62
--- NOTE | 2018-12-15 16:30 | NUR ---
NURSE NOTES: Patient is not going to have colonoscopy today. Obtained order for clear liquid diet from Dr Perez.
--- NOTE | 2018-12-15 19:10 | NUR ---
HAND-OFF: Report given to STEVEN Gómez. Patient VS stable with no sign of acute distress.
--- NOTE | 2018-12-15 19:11 | NUR ---
NURSE NOTES: Received bedside report from STEVEN Nicole.Patient stable,A&Ox3,no c/o pain,no respiratory distress noted,lethargic,SB on user experience team lead,tolerated N/C well with 2 L/min,tolerated good liquid diet after NPO,BS active in all quadrants,IV asymptomatic,intact on L AC 20 G and R wrist 22G,bed secured in a low safety position,call light within a reach.Will continue to monitor and follow POC.
[2018-12-15 20:00] VITALS: BP 111/54
--- NOTE | 2018-12-15 20:48 | General Progress Note ---
Assessment/Plan Assessment/Plan: Assessment - GI Bleed - negative EGD - CHF - Arrhythmias - Syncope - Azotemia - resolved - Anemia - anemia Recommendations - advance po diet - colonoscopy deferred pending cardiology clearance - monitor labs - Low K diet Subjective Allergies: Coded Allergies: No Known Allergies (Unverified , 06/05/14) Subjective (+) BM with Mag Citrate no further bleeding H&H now stable x 3 days still undergoing evaluation and treatment for CHF and arrhythmias Objective Last 24 Hour Vital Signs Date Time Temp Pulse Resp B/P (MAP) Pulse Ox O2 Delivery O2 Flow Rate FiO2 12/15/18 20:00 2.0 12/15/18 20:00 Nasal Cannula 2.0 12/15/18 19:29 77 24 99 Nasal Cannula 2.0 28 12/15/18 19:23 65 12/15/18 19:19 79 24 95 Nasal Cannula 2.0 28 12/15/18 19:18 95 Nasal Cannula 2.0 28 12/15/18 17:43 70 93/62 12/15/18 16:00 Nasal Cannula 2.0 12/15/18 16:00 2.0 12/15/18 16:00 98.1 70 22 93/62 (72) 96 12/15/18 16:00 68 12/15/18 14:35 Nasal Cannula 2.0 28 12/15/18 14:35 Nasal Cannula 2.0 28 12/15/18 13:38 37 12/15/18 13:31 72 12/15/18 12:50 79 110/57 12/15/18 12:32 42 12/15/18 12:16 33 12/15/18 12:00 2.0 12/15/18 12:00 99.5 79 21 110/57 (74) 96 12/15/18 12:00 Nasal Cannula 2.0 12/15/18 12:00 69 12/15/18 10:51 78 21 98 Nasal Cannula 2.0 28 12/15/18 10:43 77 21 96 Nasal Cannula 2.0 28 12/15/18 09:10 99.0 12/15/18 08:47 107 117/68 12/15/18 08:46 107 117/68 12/15/18 08:00 100.1 107 20 117/68 (84) 94 12/15/18 08:00 2.0 12/15/18 08:00 Nasal Cannula 2.0 12/15/18 07:31 108 12/15/18 07:04 104 19 98 Nasal Cannula 2.0 28 12/15/18 06:54 103 17 95 Nasal Cannula 2.0 28 12/15/18 06:54 95 Nasal Cannula 2.0 28 12/15/18 04:00 109 12/15/18 04:00 99.2 96 24 117/67 (84) 97 12/15/18 04:00 Nasal Cannula 2.0 12/15/18 04:00 2.0 12/15/18 02:59 85 18 98 Nasal Cannula 2.0 28 12/15/18 02:48 82 18 95 Nasal Cannula 2.0 28 12/15/18 00:00 99.0 105 24 110/62 (78) 97 12/15/18 00:00 105 12/15/18 00:00 Nasal Cannula 2.0 12/14/18 23:15 86 18 99 Nasal Cannula 2.0 28 12/14/18 23:01 89 18 95 Nasal Cannula 2.0 28 Intake and Output 12/14/18 12/15/18 19:00 07:00 Intake Total 1500 ml Balance 1500 ml Intake Oral 1200 ml IV Total 300 ml # Voids 2 # Bowel Movements 1 7 Laboratory Tests 12/15/18 03:45: White Blood Count 13.2H, Red Blood Count 3.72L, Hemoglobin 10.4L, Hematocrit 34.7L, Mean Corpuscular Volume 93, Mean Corpuscular Hemoglobin 28.0, Mean Corpuscular Hemoglobin Concent 29.9L, Red Cell Distribution Width 16.4H, Platelet Count 414, Mean Platelet Volume 4.6L, Neutrophils (%) (Auto) 66.8, Lymphocytes (%) (Auto) 22.2, Monocytes (%) (Auto) 4.5, Eosinophils (%) (Auto) 0.2, Basophils (%) (Auto) 6.2H, Sodium Level 143, Potassium Level 6.0*H, Chloride Level 108H, Carbon Dioxide Level 18L, Anion Gap 17H, Blood Urea Nitrogen 39H, Creatinine 1.7H, Estimat Glomerular Filtration Rate , Glucose Level 56L, Calcium Level 7.7L 12/15/18 08:36: Sodium Level 145, Potassium Level 4.4, Chloride Level 109H, Carbon Dioxide Level 29, Anion Gap 8, Blood Urea Nitrogen 11, Creatinine 1.0, Estimat Glomerular Filtration Rate , Glucose Level 91, Calcium Level 9.0 Height (Feet): 5 Height (Inches): 3.00 Weight (Pounds): 180 Objective WDWN AA woman NCAT supple CTA RRR soft ND NT no edema non focal Mandy Perez MD December 15, 2018 20:48
[2018-12-16] VITALS: BP 108/63
--- NOTE | 2018-12-16 02:15 | Progress Note ---
DATE: 12/15/2018 CARDIOLOGY PROGRESS NOTE SUBJECTIVE: The patient was NPO for colonoscopy today. The procedure was canceled after my evaluation and discussions with Dr. Perez as the patient appeared increasingly short of breath and had signs of worsening heart failure. Monitored rhythm, sinus and atrial fibrillation. OBJECTIVE: VITAL SIGNS: Blood pressure 117/68, pulse 107, respirations 20, and temperature 100.1. LUNGS: Coarse breath sounds. Few rales bilaterally. HEART: Irregularly irregular rhythm. Normal S1, S2 with a 1/6 systolic apical murmur. ABDOMEN: Soft. EXTREMITIES: A 1+ dependent edema. LABORATORY DATA: White count 13.2, hemoglobin 10.4, and platelets 414,000. Sodium 145, potassium 4.4, bicarb 29, BUN 11, and creatinine 1. Earlier potassium was 6. IMPRESSION: 1. Acute on chronic diastolic congestive heart failure. 2. Erroneous hyperkalemia. 3. Hypertensive heart disease. 4. GI bleeding with severe anemia status post transfusion. Esophagogastroduodenoscopy was unremarkable. PLAN: 1. Hold intravenous fluids. 2. Cautious diuresis. 3. Titrate anti-failure and antihypertensives. 4. Defer colonoscopy. 5. Monitor blood counts and electrolytes. Jan Moreno M.D. DR: MINA JOB#: [id number] CC:
[2018-12-16] MEDS: Albuterol/Ipratropium 3ml neb HHN SCH ×6 (03:00→23:29)
[2018-12-16 04:00] VITALS: BP 117/55
[2018-12-16 05:52] LABS: BASOPHILS % (AUTO) 0.6 % (0.0-2.0); EOSINOPHILS % (AUTO) 1.2 % (0.0-3.0); HEMATOCRIT 33.5 % (37.0-47.0); HEMOGLOBIN 9.9 G/DL (12.0-16.0); MEAN CORPUSCULAR VOLUME 94 FL (80-99); MONOCYTES % (AUTO) 7.5 % (1.0-10.0); NEUTROPHILS % (AUTO) 83.9 % (45.0-75.0); PLATELET COUNT 308 K/UL (150-450); RED BLOOD COUNT 3.56 M/UL (4.20-5.40); RED CELL DISTRIBUTION WIDTH 16.3 % (11.6-14.8); WHITE BLOOD COUNT 14.9 K/UL (4.8-10.8)
[2018-12-16 06:11] LABS: ANION GAP 7 mmol/L (5-15); BLOOD UREA NITROGEN 10 mg/dL (7-18); CARBON DIOXIDE 30 MMOL/L (21-32); CHLORIDE 108 MMOL/L (98-107); POTASSIUM 4.4 MMOL/L (3.5-5.1); SODIUM 145 MMOL/L (136-145)
--- NOTE | 2018-12-16 07:03 | NUR ---
HAND-OFF: Report given to STEVEN Diaz.Patient stable.
--- NOTE | 2018-12-16 07:06 | NUR ---
NURSE NOTES: Received pt from STEVEN Gómez in stable condition with no cardiopulmonary distress noted. Pt is asleep in bed, on 2L O2 via NC. Pt has a L 20g AC. Clifford noted draining yellow pts. Pt is hooked to jalousie installer currently SR. SCDs on bilat lower extremities. Bed is in lowest position, call light within reach, side rails up x 3. Will continue to monitor pt. Addendum: 12/16/18 at 1228 by Emily Dowling RN Late entry: No skin alterations noted.
[2018-12-16 08:00] VITALS: BP 131/100
--- NOTE | 2018-12-16 08:53 | NUR ---
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 SpO2 94 oN 2.0 O2 WBC 14.9, RBC 3.56, H&H 9.9/33.5 CXR: Mild interstitial congestion. Possible small bilateral pleural effusion. IS:ALBUTEROL 3ml HHN LIPITOR 10mg CARDIZEM 60mg GABAPENTIN 300mg NS x1L IV D5/NS x1L IV METOPROLOL 25mg SDU STATUS
[2018-12-16] MEDS: Docusate 100mg cap ORAL SCH ×2 (08:59→18:19)
[2018-12-16] MEDS: Pantoprazole Inj IV SCH (08:59)
[2018-12-16] MEDS: Metoprolol Succinate XL 25mg tab ORAL SCH (09:00)
[2018-12-16] MEDS: Milk of Magnesia 30ml Ud ORAL SCH (09:01)
[2018-12-16] MEDS: Flonase Nasal Inhaler 16gm NASAL SCH ×2 (09:01→18:18)
[2018-12-16] MEDS: dilTIAZem HCl 60mg tab ORAL SCH ×4 (09:01→21:18)
[2018-12-16 12:00] VITALS: BP 129/61
[2018-12-16 16:00] VITALS: BP 102/52
--- NOTE | 2018-12-16 19:29 | NUR ---
HAND OFF: Report given to STEVEN Gómez. Pt in stable condition.
--- NOTE | 2018-12-16 19:30 | NUR ---
NURSE NOTES: Received bedside report from STEVEN Diaz.Patient stable,A&Ox3,no c/o pain,no respiratory distress noted,SR on dermatologist and dermatopathologist,tolerated N/C well with 2 L/min,tolerated diet well,BS active in all quadrants,IV asymptomatic,intact on R hand G 22 SL,bed secured in a low safety position,call light within a reach.Will continue to monitor and follow POC.
[2018-12-16 20:00] VITALS: BP 122/68
--- NOTE | 2018-12-16 21:11 | General Progress Note ---
Assessment/Plan Problem List: (1) COPD (chronic obstructive pulmonary disease) ICD Codes: J44.9 - Chronic obstructive pulmonary disease, unspecified SNOMED: 69527982 (2) CHF (congestive heart failure) ICD Codes: I50.9 - Heart failure, unspecified SNOMED: 29563076 (3) Paroxysmal A-fib ICD Codes: I48.0 - Paroxysmal atrial fibrillation SNOMED: 603599253 (4) Hypotension ICD Codes: I95.9 - Hypotension, unspecified SNOMED: 51506761 (5) SITA (acute kidney injury) ICD Codes: N17.9 - Acute kidney failure, unspecified SNOMED: 75196109 (6) Hyperkalemia ICD Codes: E87.5 - Hyperkalemia SNOMED: 23166756 (7) Anemia ICD Codes: D64.9 - Anemia, unspecified SNOMED: 120959521 Qualifiers: Qualified Codes: D64.9 - Anemia, unspecified (8) Lower GI bleed ICD Codes: K92.2 - Gastrointestinal hemorrhage, unspecified SNOMED: 96263088 (9) Elevated troponin ICD Codes: R74.8 - Abnormal levels of other serum enzymes SNOMED: 459451001, 248141154, 039787179 Assessment/Plan: prep for colon cont tele K 6 repeat nl, lasix restarted, colonoscopy deferred to wednesday as dyspnea earlier--improving Subjective Constitutional: Reports: weakness HEENT: Reports: no symptoms Cardiovascular: Reports: irregular heart rate Respiratory: Reports: cough Gastrointestinal/Abdominal: Reports: blood in stool Genitourinary: Reports: incontinence Neurologic/Psychiatric: Reports: pre-existing deficit Endocrine: Reports: no symptoms Allergies: Coded Allergies: No Known Allergies (Unverified , 06/05/14) Objective Last 24 Hour Vital Signs Date Time Temp Pulse Resp B/P (MAP) Pulse Ox O2 Delivery O2 Flow Rate FiO2 12/16/18 20:23 Nasal Cannula 2.0 28 12/16/18 20:22 Nasal Cannula 2.0 28 12/16/18 20:00 93 Nasal Cannula 2.0 28 12/16/18 18:19 80 102/52 12/16/18 16:00 Nasal Cannula 2.0 Nasal Cannula 2.0 12/16/18 16:00 80 12/16/18 16:00 2.0 12/16/18 16:00 98.6 88 24 102/52 (69) 98 12/16/18 14:48 80 20 99 Nasal Cannula 2.0 28 12/16/18 14:37 79 20 95 Nasal Cannula 2.0 28 12/16/18 12:17 90 129/61 12/16/18 12:00 88 12/16/18 12:00 Nasal Cannula 2.0 Nasal Cannula 2.0 12/16/18 12:00 98.8 90 22 129/61 (83) 96 12/16/18 12:00 2.0 12/16/18 11:14 82 20 99 Nasal Cannula 2.0 28 12/16/18 10:59 81 20 95 Nasal Cannula 2.0 28 12/16/18 09:01 100 131/100 12/16/18 09:00 100 131/100 12/16/18 08:00 97.9 100 20 131/100 (110) 91 12/16/18 08:00 99 12/16/18 08:00 Nasal Cannula 2.0 Nasal Cannula 2.0 12/16/18 08:00 2.0 12/16/18 07:27 101 20 99 Nasal Cannula 2.0 28 12/16/18 07:21 94 Nasal Cannula 2.0 28 12/16/18 07:19 100 20 94 Nasal Cannula 2.0 28 12/16/18 04:00 99.6 84 24 117/55 (75) 94 12/16/18 04:00 Nasal Cannula 2.0 Nasal Cannula 2.0 12/16/18 04:00 2.0 12/16/18 03:35 Nasal Cannula 2.0 28 12/16/18 03:34 96 12/16/18 03:34 Nasal Cannula 2.0 28 12/16/18 00:00 99.0 98 24 108/63 (78) 98 12/16/18 00:00 Nasal Cannula 2.0 Nasal Cannula 2.0 12/15/18 23:40 93 12/15/18 23:16 72 24 99 Nasal Cannula 2.0 28 12/15/18 23:05 76 24 96 Nasal Cannula 2.0 28 12/15/18 21:12 87 111/54 Intake and Output 12/15/18 12/16/18 19:00 07:00 Intake Total 660 ml 400 ml Output Total 600 ml 300 ml Balance 60 ml 100 ml Intake Oral 660 ml 400 ml Output Urine Total 600 ml 300 ml # Voids 2 # Bowel Movements 2 Laboratory Tests 12/16/18 03:40: White Blood Count 14.9H, Red Blood Count 3.56L, Hemoglobin 9.9L, Hematocrit 33.5L, Mean Corpuscular Volume 94, Mean Corpuscular Hemoglobin 28.0, Mean Corpuscular Hemoglobin Concent 29.7L, Red Cell Distribution Width 16.3H, Platelet Count 308, Mean Platelet Volume 5.2L, Neutrophils (%) (Auto) 83.9H, Lymphocytes (%) (Auto) 7.0L, Monocytes (%) (Auto) 7.5, Eosinophils (%) (Auto) 1.2, Basophils (%) (Auto) 0.6, Sodium Level 145, Potassium Level 4.4, Chloride Level 108H, Carbon Dioxide Level 30, Anion Gap 7, Blood Urea Nitrogen 10, Creatinine 1.0, Estimat Glomerular Filtration Rate , Glucose Level 88, Calcium Level 9.0, Magnesium Level 2.2, Pro-B-Type Natriuretic Peptide [id number] Height (Feet): 5 Height (Inches): 3.00 Weight (Pounds): 180 General Appearance: no apparent distress, obese EENT: normal ENT inspection Neck: normal alignment Cardiovascular: regularly irregular Respiratory/Chest: rhonchi - bilaterally Abdomen: non tender, soft Extremities: no calf tenderness Edema: trace edema Neurologic: motor weakness Pastor Bowen MD December 16, 2018 21:11
--- NOTE | 2018-12-16 21:28 | General Progress Note ---
Assessment/Plan Assessment/Plan: Assessment - GI Bleed - negative EGD - CHF - Arrhythmias - Syncope - Azotemia - resolved - Anemia - anemia Recommendations - advance po diet - colonoscopy deferred to Wednesday - monitor labs - Low K diet Subjective Allergies: Coded Allergies: No Known Allergies (Unverified , 06/05/14) Subjective above noted d/w renal Colonoscopy rescheduled for Wednesday Objective Last 24 Hour Vital Signs Date Time Temp Pulse Resp B/P (MAP) Pulse Ox O2 Delivery O2 Flow Rate FiO2 12/16/18 21:18 85 122/68 12/16/18 20:23 Nasal Cannula 2.0 28 12/16/18 20:22 Nasal Cannula 2.0 28 12/16/18 20:00 93 Nasal Cannula 2.0 28 12/16/18 18:19 80 102/52 12/16/18 16:00 Nasal Cannula 2.0 Nasal Cannula 2.0 12/16/18 16:00 80 12/16/18 16:00 2.0 12/16/18 16:00 98.6 88 24 102/52 (69) 98 12/16/18 14:48 80 20 99 Nasal Cannula 2.0 28 12/16/18 14:37 79 20 95 Nasal Cannula 2.0 28 12/16/18 12:17 90 129/61 12/16/18 12:00 88 12/16/18 12:00 Nasal Cannula 2.0 Nasal Cannula 2.0 12/16/18 12:00 98.8 90 22 129/61 (83) 96 12/16/18 12:00 2.0 12/16/18 11:14 82 20 99 Nasal Cannula 2.0 28 12/16/18 10:59 81 20 95 Nasal Cannula 2.0 28 12/16/18 09:01 100 131/100 12/16/18 09:00 100 131/100 12/16/18 08:00 97.9 100 20 131/100 (110) 91 12/16/18 08:00 99 12/16/18 08:00 Nasal Cannula 2.0 Nasal Cannula 2.0 12/16/18 08:00 2.0 12/16/18 07:27 101 20 99 Nasal Cannula 2.0 28 12/16/18 07:21 94 Nasal Cannula 2.0 28 12/16/18 07:19 100 20 94 Nasal Cannula 2.0 28 12/16/18 04:00 99.6 84 24 117/55 (75) 94 12/16/18 04:00 Nasal Cannula 2.0 Nasal Cannula 2.0 12/16/18 04:00 2.0 12/16/18 03:35 Nasal Cannula 2.0 28 12/16/18 03:34 96 12/16/18 03:34 Nasal Cannula 2.0 28 12/16/18 00:00 99.0 98 24 108/63 (78) 98 12/16/18 00:00 Nasal Cannula 2.0 Nasal Cannula 2.0 12/15/18 23:40 93 12/15/18 23:16 72 24 99 Nasal Cannula 2.0 28 12/15/18 23:05 76 24 96 Nasal Cannula 2.0 28 Intake and Output 12/15/18 12/16/18 19:00 07:00 Intake Total 660 ml 400 ml Output Total 600 ml 300 ml Balance 60 ml 100 ml Intake Oral 660 ml 400 ml Output Urine Total 600 ml 300 ml # Voids 2 # Bowel Movements 2 Laboratory Tests 12/16/18 03:40: White Blood Count 14.9H, Red Blood Count 3.56L, Hemoglobin 9.9L, Hematocrit 33.5L, Mean Corpuscular Volume 94, Mean Corpuscular Hemoglobin 28.0, Mean Corpuscular Hemoglobin Concent 29.7L, Red Cell Distribution Width 16.3H, Platelet Count 308, Mean Platelet Volume 5.2L, Neutrophils (%) (Auto) 83.9H, Lymphocytes (%) (Auto) 7.0L, Monocytes (%) (Auto) 7.5, Eosinophils (%) (Auto) 1.2, Basophils (%) (Auto) 0.6, Sodium Level 145, Potassium Level 4.4, Chloride Level 108H, Carbon Dioxide Level 30, Anion Gap 7, Blood Urea Nitrogen 10, Creatinine 1.0, Estimat Glomerular Filtration Rate , Glucose Level 88, Calcium Level 9.0, Magnesium Level 2.2, Pro-B-Type Natriuretic Peptide [id number] Height (Feet): 5 Height (Inches): 3.00 Weight (Pounds): 180 Objective WDWN AA woman NCAT supple CTA RR soft ND NT no edema non focal Mandy Perez MD December 16, 2018 21:28
[2018-12-17] VITALS: BP 130/60
--- NOTE | 2018-12-17 03:15 | Progress Note ---
DATE: 12/16/2018 CARDIOLOGY PROGRESS NOTE SUBJECTIVE: The patient's shortness of breath is somewhat better today. She was diuresed. Colonoscopy was deferred yesterday as the result of the shortness of breath. She has not had chest pain. She also had episodes of rapid atrial fibrillation. She has some short pauses. Today, rate controlled. PHYSICAL EXAMINATION: VITAL SIGNS: Blood pressure 102/52, pulse 80, respiratory rate 18, and saturation is only 93% on 2 L nasal cannula. LUNGS: Diminished breath sounds. Few rales. HEART: Irregularly irregular rhythm. Normal S1 and S2 with a 1/6 systolic apical murmur. ABDOMEN: Soft. EXTREMITIES: No edema. LABORATORY DATA: White count 14.9 and hemoglobin 9.9. Sodium 145, potassium 4.4, bicarbonate 30, BUN 10, creatinine 1, and magnesium 2.2. Pro-natriuretic peptide has decreased to 11,600 from 25,000. IMPRESSION: 1. Paroxysmal atrial fibrillation. 2. Acute on chronic diastolic congestive heart failure. 3. GI bleeding. 4. Severe anemia, status post transfusion. PLAN: 1. Diuresis. 2. Colonoscopy rescheduled. 3. Monitor electrolytes, replace accordingly. 4. Serial hemoglobin. 5. Uptitration of anti-failure and antihypertensive drugs. Jan Moreno M.D. DR: KRISH JOB#: [id number] CC:
[2018-12-17 04:00] VITALS: BP 128/64
[2018-12-17] MEDS: Albuterol/Ipratropium 3ml neb HHN SCH ×5 (04:10→18:49)
[2018-12-17 05:40] LABS: BASOPHILS % (AUTO) 1.1 % (0.0-2.0); EOSINOPHILS % (AUTO) 1.4 % (0.0-3.0); HEMATOCRIT 34.3 % (37.0-47.0); HEMOGLOBIN 10.2 G/DL (12.0-16.0); LYMPHOCYTES % (AUTO) 9.6 % (20.0-45.0); MEAN CORPUSCULAR VOLUME 95 FL (80-99); MONOCYTES % (AUTO) 11.6 % (1.0-10.0); NEUTROPHILS % (AUTO) 76.4 % (45.0-75.0); PLATELET COUNT 291 K/UL (150-450); RED BLOOD COUNT 3.63 M/UL (4.20-5.40); RED CELL DISTRIBUTION WIDTH 16.5 % (11.6-14.8); WHITE BLOOD COUNT 15.4 K/UL (4.8-10.8)
[2018-12-17 06:06] LABS: ANION GAP 4 mmol/L (5-15); BLOOD UREA NITROGEN 12 mg/dL (7-18); CALCIUM 8.8 MG/DL (8.5-10.1); CARBON DIOXIDE 33 MMOL/L (21-32); CHLORIDE 108 MMOL/L (98-107); CREATININE 1.1 MG/DL (0.55-1.30); POTASSIUM 4.4 MMOL/L (3.5-5.1); SODIUM 145 MMOL/L (136-145)
--- NOTE | 2018-12-17 06:45 | NUR ---
NURSE NOTES: notified regarding Mg result 1.5.Waiting for respond,charge nurse aware,morning shift nurse will endorse.
--- NOTE | 2018-12-17 07:04 | NUR ---
HAND-OFF: Report given to STEVEN Diaz.Patient sleeping.
--- NOTE | 2018-12-17 07:04 | NUR ---
NURSE NOTES: Received pt from STEVEN Gómez with no cardiopulmonary distress noted. Pt is AAOx1 and arousable to voice, on 2L O2 via NC. Per Dalia, pt is deteriorating neurologically. Will contact Dr. Bowen. Pt has a L 20g AC. Clifford noted draining yellow pts. Pt is hooked to radiographer cardiac catheterization currently SR. SCDs on bilat lower extremities. Bed is in lowest position, call light within reach, side rails up x 3. Will continue to monitor pt.
--- NOTE | 2018-12-17 07:10 | NUR ---
Left a message for Dr. Bowen about pt's mental status. Awaiting call back.
[2018-12-17 08:00] VITALS: BP 129/63
--- NOTE | 2018-12-17 08:00 | General Progress Note ---
Assessment/Plan Assessment/Plan: Assessment - GI Bleed - negative EGD - CHF - Arrhythmias - Syncope - Azotemia - resolved - Anemia - anemia Recommendations - advance po diet - colonoscopy deferred to Wednesday - monitor labs - Low K diet Subjective ROS Limited/Unobtainable: No Allergies: Coded Allergies: No Known Allergies (Unverified , 06/05/14) Objective Last 24 Hour Vital Signs Date Time Temp Pulse Resp B/P (MAP) Pulse Ox O2 Delivery O2 Flow Rate FiO2 12/17/18 04:15 82 18 95 Nasal Cannula 2.0 28 12/17/18 04:00 Nasal Cannula 2.0 Nasal Cannula 2.0 12/17/18 04:00 97.9 88 22 128/64 (85) 95 12/17/18 04:00 2.0 12/17/18 03:54 97 12/17/18 03:50 80 18 92 Nasal Cannula 2.0 28 12/17/18 00:00 2.0 12/17/18 00:00 97.7 93 22 130/60 (83) 94 12/17/18 00:00 Nasal Cannula 2.0 Nasal Cannula 2.0 12/16/18 23:36 75 12/16/18 23:30 84 18 97 Nasal Cannula 2.0 28 12/16/18 23:20 81 18 95 Nasal Cannula 2.0 28 12/16/18 21:18 85 122/68 12/16/18 20:23 Nasal Cannula 2.0 28 12/16/18 20:22 Nasal Cannula 2.0 28 12/16/18 20:00 2.0 12/16/18 20:00 93 Nasal Cannula 2.0 28 12/16/18 20:00 98.2 85 18 122/68 (86) 98 12/16/18 20:00 Nasal Cannula 2.0 Nasal Cannula 2.0 12/16/18 19:57 80 12/16/18 18:19 80 102/52 12/16/18 16:00 Nasal Cannula 2.0 Nasal Cannula 2.0 12/16/18 16:00 80 12/16/18 16:00 2.0 12/16/18 16:00 98.6 88 24 102/52 (69) 98 12/16/18 14:48 80 20 99 Nasal Cannula 2.0 28 12/16/18 14:37 79 20 95 Nasal Cannula 2.0 28 12/16/18 12:17 90 129/61 12/16/18 12:00 88 12/16/18 12:00 Nasal Cannula 2.0 Nasal Cannula 2.0 12/16/18 12:00 98.8 90 22 129/61 (83) 96 12/16/18 12:00 2.0 12/16/18 11:14 82 20 99 Nasal Cannula 2.0 28 12/16/18 10:59 81 20 95 Nasal Cannula 2.0 28 12/16/18 09:01 100 131/100 12/16/18 09:00 100 131/100 12/16/18 08:00 97.9 100 20 131/100 (110) 91 12/16/18 08:00 99 12/16/18 08:00 Nasal Cannula 2.0 Nasal Cannula 2.0 12/16/18 08:00 2.0 Intake and Output 12/16/18 12/17/18 18:59 06:59 Intake Total 375 ml 120 ml Output Total 400 ml 300 ml Balance -25 ml -180 ml Intake Oral 375 ml 120 ml Output Urine Total 400 ml 300 ml # Voids 1 # Bowel Movements 2 Laboratory Tests 12/17/18 04:30: White Blood Count 15.4H, Red Blood Count 3.63L, Hemoglobin 10.2L, Hematocrit 34.3L, Mean Corpuscular Volume 95, Mean Corpuscular Hemoglobin 28.2, Mean Corpuscular Hemoglobin Concent 29.8L, Red Cell Distribution Width 16.5H, Platelet Count 291, Mean Platelet Volume 5.4L, Neutrophils (%) (Auto) 76.4H, Lymphocytes (%) (Auto) 9.6L, Monocytes (%) (Auto) 11.6H, Eosinophils (%) (Auto) 1.4, Basophils (%) (Auto) 1.1, Sodium Level 145, Potassium Level 4.4, Chloride Level 108H, Carbon Dioxide Level 33H, Anion Gap 4L, Blood Urea Nitrogen 12, Creatinine 1.1, Estimat Glomerular Filtration Rate , Glucose Level 107H, Calcium Level 8.8 Height (Feet): 5 Height (Inches): 3.00 Weight (Pounds): 180 General Appearance: no apparent distress EENT: normal ENT inspection Neck: supple Cardiovascular: normal rate Respiratory/Chest: decreased breath sounds Abdomen: normal bowel sounds, non tender, soft Extremities: non-tender Sung Tong MD Dec 17, 2018 08:00
[2018-12-17] MEDS: Milk of Magnesia 30ml Ud ORAL SCH (09:00)
[2018-12-17] MEDS: Docusate 100mg cap ORAL SCH ×2 (09:00→17:46)
[2018-12-17] MEDS ORDERED: Furosemide 40mg tab ORAL SCH (09:00)
[2018-12-17] MEDS ORDERED: Sorbitol Solution UD 30ml ORAL SCH (09:00)
--- NOTE | 2018-12-17 09:00 | NUR ---
Pt taken down to CT scan accompanied by myself and CT Scan personnel via O2 tank and portable protohistorian.
--- NOTE | 2018-12-17 09:30 | NUR ---
NURSE NOTES: Pt returned to unit in stable condition. Currently SArmidaTach on monitor. Will continue to monitor. Awaiting CT results and will update Dr. Bowen promptly. Currently holding PO meds until we receive CT results.
--- NOTE | 2018-12-17 09:50 | Diagnostic Imaging Report ---
EXAM: CT Head Without Intravenous Contrast CLINICAL HISTORY: CVA TECHNIQUE: Axial computed tomography images of the head/brain without intravenous contrast. CTDI is 70.38 mGy and DLP is 1467 mGy-cm. One or more of the following dose reduction techniques were used: automated exposure control, adjustment of the mA and/or kV according to patient size, use of iterative reconstruction technique. COMPARISON: CT head 05/27/17 FINDINGS: No intracranial hemorrhage, abnormal intra- or extra-axial collections or parenchymal lesions are seen. There are involutional changes with prominence of the sulci, basal cisterns and ventricles. Scattered white matter hypoattenuations are present, likely from small vessel disease. Old left frontal infarct. The izaguirre-white differentiation is preserved. No evidence of mass effect, midline shift, or edema. The osseous structures are unremarkable. Near complete opacification of the right sphenoid sinus. Mastoid air cells are clear. IMPRESSION: 1. No acute intracranial process. 2. Involutional changes with small vessel disease. 3. Old left frontal infarct. 4. 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
--- NOTE | 2018-12-17 10:30 | NUR ---
NURSE NOTES: CT Scan results came back negative. Will tadminister PO meds crushed in apple sauce.
[2018-12-17] MEDS: Flonase Nasal Inhaler 16gm NASAL SCH ×2 (10:35→17:47)
[2018-12-17] MEDS: dilTIAZem HCl 60mg tab ORAL SCH ×3 (10:36→21:39)
[2018-12-17] MEDS: Metoprolol Succinate XL 25mg tab ORAL SCH (10:36)
--- NOTE | 2018-12-17 10:45 | NUR ---
NURSE NOTES: Pt was able to swallow crushed PO meds. Mental status improved.
--- NOTE | 2018-12-17 11:00 | NUR ---
NURSE NOTES: Dr. Bowen came in to see pt and assessed neuro status. Informed Dr. Bowen of pt's poor PO intake and ABGs were ordered as of now. No other orders. Will follow up with results.
--- NOTE | 2018-12-17 11:10 | NUR ---
NURSE NOTES: Dr. Bowen aware of pt's ABGs today and ordered consultation with Dr. Bernal who will come see pt today. New orders to decrease O2 to 1L via NC carried out. Will monitor pt.
--- NOTE | 2018-12-17 11:32 | General Progress Note ---
Assessment/Plan Problem List: (1) COPD (chronic obstructive pulmonary disease) ICD Codes: J44.9 - Chronic obstructive pulmonary disease, unspecified SNOMED: 68093039 (2) CHF (congestive heart failure) ICD Codes: I50.9 - Heart failure, unspecified SNOMED: 43040968 (3) Paroxysmal A-fib ICD Codes: I48.0 - Paroxysmal atrial fibrillation SNOMED: 382221158 (4) Hypotension ICD Codes: I95.9 - Hypotension, unspecified SNOMED: 20637570 (5) SITA (acute kidney injury) ICD Codes: N17.9 - Acute kidney failure, unspecified SNOMED: 02399423 (6) Hyperkalemia ICD Codes: E87.5 - Hyperkalemia SNOMED: 24751389 (7) Anemia ICD Codes: D64.9 - Anemia, unspecified SNOMED: 403849139 Qualifiers: Qualified Codes: D64.9 - Anemia, unspecified (8) Lower GI bleed ICD Codes: K92.2 - Gastrointestinal hemorrhage, unspecified SNOMED: 66784619 (9) Elevated troponin ICD Codes: R74.8 - Abnormal levels of other serum enzymes SNOMED: 808124625, 891170046, 620047340 (10) Metabolic encephalopathy ICD Codes: G93.41 - Metabolic encephalopathy SNOMED: 46363494 Assessment/Plan: prep for colon cont tele K 6 repeat nl, lasix restarted, colonoscopy deferred to wednesday as dyspnea earlier--metabolic enceph cheeck abg, jpossible mri, pulm care, repeat cxr Subjective Constitutional: Reports: weakness HEENT: Reports: no symptoms Cardiovascular: Reports: no symptoms Respiratory: Reports: cough Gastrointestinal/Abdominal: Reports: no symptoms Neurologic/Psychiatric: Reports: pre-existing deficit, other Endocrine: Reports: no symptoms Hematologic/Lymphatic: Reports: anemia Allergies: Coded Allergies: No Known Allergies (Unverified , 06/05/14) Objective Last 24 Hour Vital Signs Date Time Temp Pulse Resp B/P (MAP) Pulse Ox O2 Delivery O2 Flow Rate FiO2 12/17/18 11:05 Nasal Cannula 12/17/18 11:05 Nasal Cannula 12/17/18 10:36 90 129/63 12/17/18 10:36 90 129/63 12/17/18 08:15 90 20 98 Nasal Cannula 2.0 28 12/17/18 08:15 98 Nasal Cannula 2.0 28 12/17/18 08:00 Nasal Cannula 2.0 Nasal Cannula 2.0 12/17/18 08:00 2.0 12/17/18 08:00 99.1 102 18 129/63 (85) 100 12/17/18 08:00 103 12/17/18 04:15 82 18 95 Nasal Cannula 2.0 28 12/17/18 04:00 Nasal Cannula 2.0 Nasal Cannula 2.0 12/17/18 04:00 97.9 88 22 128/64 (85) 95 12/17/18 04:00 2.0 12/17/18 03:54 97 12/17/18 03:50 80 18 92 Nasal Cannula 2.0 28 12/17/18 00:00 2.0 12/17/18 00:00 97.7 93 22 130/60 (83) 94 12/17/18 00:00 Nasal Cannula 2.0 Nasal Cannula 2.0 12/16/18 23:36 75 12/16/18 23:30 84 18 97 Nasal Cannula 2.0 28 12/16/18 23:20 81 18 95 Nasal Cannula 2.0 28 12/16/18 21:18 85 122/68 12/16/18 20:23 Nasal Cannula 2.0 28 12/16/18 20:22 Nasal Cannula 2.0 28 12/16/18 20:00 2.0 12/16/18 20:00 93 Nasal Cannula 2.0 28 12/16/18 20:00 98.2 85 18 122/68 (86) 98 12/16/18 20:00 Nasal Cannula 2.0 Nasal Cannula 2.0 12/16/18 19:57 80 12/16/18 18:19 80 102/52 12/16/18 16:00 Nasal Cannula 2.0 Nasal Cannula 2.0 12/16/18 16:00 80 12/16/18 16:00 2.0 12/16/18 16:00 98.6 88 24 102/52 (69) 98 12/16/18 14:48 80 20 99 Nasal Cannula 2.0 28 12/16/18 14:37 79 20 95 Nasal Cannula 2.0 28 12/16/18 12:17 90 129/61 12/16/18 12:00 88 12/16/18 12:00 Nasal Cannula 2.0 Nasal Cannula 2.0 12/16/18 12:00 98.8 90 22 129/61 (83) 96 12/16/18 12:00 2.0 Intake and Output 12/16/18 12/17/18 19:00 07:00 Intake Total 375 ml 120 ml Output Total 400 ml 300 ml Balance -25 ml -180 ml Intake Oral 375 ml 120 ml Output Urine Total 400 ml 300 ml # Voids 1 # Bowel Movements 2 Laboratory Tests 12/17/18 04:30: White Blood Count 15.4H, Red Blood Count 3.63L, Hemoglobin 10.2L, Hematocrit 34.3L, Mean Corpuscular Volume 95, Mean Corpuscular Hemoglobin 28.2, Mean Corpuscular Hemoglobin Concent 29.8L, Red Cell Distribution Width 16.5H, Platelet Count 291, Mean Platelet Volume 5.4L, Neutrophils (%) (Auto) 76.4H, Lymphocytes (%) (Auto) 9.6L, Monocytes (%) (Auto) 11.6H, Eosinophils (%) (Auto) 1.4, Basophils (%) (Auto) 1.1, Sodium Level 145, Potassium Level 4.4, Chloride Level 108H, Carbon Dioxide Level 33H, Anion Gap 4L, Blood Urea Nitrogen 12, Creatinine 1.1, Estimat Glomerular Filtration Rate , Glucose Level 107H, Calcium Level 8.8 12/17/18 11:07: Arterial Blood pH 7.309L, Arterial Blood Partial Pressure CO2 69.3*H, Arterial Blood Partial Pressure O2 106.9H, Arterial Blood HCO3 34.0H, Arterial Blood Oxygen Saturation 97.4, Arterial Blood Base Excess 6.1H, Hal Test Positive Height (Feet): 5 Height (Inches): 3.00 Weight (Pounds): 180 General Appearance: mild distress EENT: normal ENT inspection Neck: normal alignment Cardiovascular: regular rhythm Respiratory/Chest: rhonchi - bilaterally Abdomen: non tender, soft Edema: no edema noted Arm (L), no edema noted Arm (R), no edema noted Leg (L), no edema noted Leg (R), no edema noted Pedal (L), no edema noted Pedal (R), no edema noted Generalized Neurologic: motor weakness, disoriented, other - dysarthric r>L weak, more lethargic slow of speech Pastor Bowen MD Dec 17, 2018 11:32
[2018-12-17] MEDS ORDERED: Solu-MEDROL 125mg Inj IVP SCH (11:48)
[2018-12-17 12:00] VITALS: BP 116/66
--- NOTE | 2018-12-17 13:06 | Consultation ---
Consult Note Assessment/Plan #[id number] hypercapnic respiratory failure copd exacerbation decompensated chf HTN HLD AMS/dementia hypoxemia add steroids bipap for now repeat abg and continue bipap qhs and prn distress nebs q 4 monitor HR Keren Bernal DO Dec 17, 2018 13:06
[2018-12-17] MEDS: D5W w/KCl 20mEq 1,000 ML IV SCH (13:32)
[2018-12-17] MEDS: Zoysn 3.37gm in NS 100ML IVPB SCH ×2 (13:32→21:40)
--- NOTE | 2018-12-17 13:40 | NUR ---
RESPIRATORY NOTE:Started pt on bipap 15/5 fio2 30% per doctors orders due to abg results. pt is resting comfortably and no s/s of distress. RN notified of changes.
[2018-12-17] MEDS ORDERED: Tubing IV Secondary IV ONE (14:44)
[2018-12-17] MEDS ORDERED: D5 1/2NS 1000ml IV ONE (14:44)
--- NOTE | 2018-12-17 14:49 | NUR ---
NURSE NOTES: Left message for Dr. Bowen regarding pt going into junctional rhythm for 3 seconds 39bpm (at 1428). Awaiting call back.
--- NOTE | 2018-12-17 14:59 | NUR ---
NURSE NOTES: Received call back from Dr. Bowen. Instructed to contact Dr. Moreno instead.
--- NOTE | 2018-12-17 15:00 | NUR ---
NURSE NOTES: Dr. Moreno on the unit to assess pt and update care plan.
--- NOTE | 2018-12-17 15:11 | Diagnostic Imaging Report ---
EXAM: XR Chest, 1 View CLINICAL HISTORY: COPD TECHNIQUE: Frontal view of the chest. COMPARISON: Chest x-ray, 12/15/18 FINDINGS: Lungs: Vascular and interstitial prominence slightly improved. Right perihilar discoid opacification may be atelectasis, cannot exclude developing infiltrate. Pleural space: Unremarkable. No pneumothorax. Heart: Cardiomegaly. Mediastinum: Unremarkable. Bones/joints: Unremarkable. IMPRESSION: Vascular and interstitial prominence slightly improved. Right perihilar discoid opacification may be atelectasis, cannot exclude developing infiltrate.
[2018-12-17 16:00] VITALS: BP 140/64
--- NOTE | 2018-12-17 18:44 | NUR ---
RESPIRATORY NOTE: Received pt. on BIPAP. BIPAP settings are: 15/5, rate of 14, FI02 30%. No respiratory distress noted, pt. sP02 97%. BIPAP plugged on red outlet. Will continue to monitor pt.
[2018-12-17 19:07] LABS: APPEARANCE,URINE CLEAR; BILIRUBIN, URINE NEGATIVE (NEGATIVE); COLOR,URINE PALE YELLOW; GLUCOSE, URINE (UA) NEGATIVE (NEGATIVE); KETONES,URINE NEGATIVE (NEGATIVE); LEUKOCYTE ESTERASE ,URINE NEGATIVE (NEGATIVE); NITRITE,URINE NEGATIVE (NEGATIVE); PH,URINE 7 (4.5-8.0); PROTEIN,URINE NEGATIVE (NEGATIVE); UROBILINOGEN,URINE NORMAL MG/DL (0.0-1.0)
--- NOTE | 2018-12-17 19:42 | NUR ---
NURSE NOTES: Received patient from Emily HARRIS. Patient is awake and oriented x1, family in room. She is receiving oxygen via Bipap with settings 15/5 FiO2 at 28%. Purewick is patent and draining. IV site is right hand 22g receiving D5 with 20 mEq of KCL at 30cc/hr. Bed is locked, placed in lowest position, side rails up x3, call light within reach. Will continue to monitor.
--- NOTE | 2018-12-17 19:42 | NUR ---
HAND-OFF: Report given to Vladimir López RN. Pt in stable condition.
[2018-12-17 20:00] VITALS: BP 104/55
[2018-12-17] MEDS: Solu-MEDROL 40mg Inj IVP SCH (21:40)
--- NOTE | 2018-12-17 23:30 | Consultation ---
DATE OF CONSULTATION: 12/17/2018 CONSULTING PHYSICIAN: Keren Bernal D.O. REASON FOR CONSULTATION: Shortness of breath and hypercapnia. HISTORY OF PRESENT ILLNESS: An elderly female. Per the report, it must be noted that she does live in an extended care facility with a possible syncopal episode. Does use oxygen at home and is nonambulatory at baseline. She does not wear oxygen at home or any nebulizer treatments. Does minimally communicate and follows some commands. She was admitted with chronic obstructive pulmonary disease exacerbation, congestive heart failure, decompensation, and hypercarbic respiratory failure. She was also noted to have a gastrointestinal bleed and she has been prepped for colonoscopy. No reports of nausea, vomiting, or diarrhea. She was admitted on 12/13/2018. PAST MEDICAL HISTORY: Includes atrial fibrillation, on anticoagulation, chronic obstructive pulmonary disease, congestive heart failure, CVA, gait disorder, osteoarthritis, chronic pain syndrome, non-STEMI, hyperlipidemia, hypertension, and dementia. ALLERGIES: She has no known drug allergies. PAST SURGICAL HISTORY: ____ endarterectomy and orthopedic foot surgery. SOCIAL HISTORY: She has a history of tobacco, but quit 2 years ago. No alcohol or drugs. The patient lives in a [facility]. She has Full Code. MEDICATIONS: Prehospital and current medications were reviewed, reconciled, and documented in the electronic medical record by dose, frequency, and route. PHYSICAL EXAMINATION: GENERAL: At the time my exam, her eyes are open. She follows some simple commands. She is in no acute respiratory distress. VITAL SIGNS: She has a low-grade temperature of 99.1, pulse is 103 to 86, blood pressure is 116/66. She is on 2 liters nasal cannula. Her saturations are 100%. HEENT: Normocephalic and atraumatic. Oropharynx is dry. Nasal mucosa dry. NECK: Supple. No lymphadenopathy. LUNGS: Decreased at the bases with scant rhonchi. No wheezes or crackles present. HEART: Irregularly irregular with an audible murmur. ABDOMEN: Soft, obese, and nontender. Bowel sounds are present. EXTREMITIES: Trace lower extremity edema. NEUROLOGIC: She does follow some commands and moves all extremities spontaneously. LABORATORY DATA: Her white count 15.4, hemoglobin 10.2, and platelets are 292,000. Her most recent blood gas is 7.30, 69, and 106. Her chemistry, 145 sodium, potassium 4.4, chloride 98, bicarb 33, BUN 12, creatinine 1.1, and glucose is 103. Her urinalysis is negative for leukocyte esterase negative. Multiple cultures have been taken, which were all negative at this time. A CT scan of the head was obtained today, which shows no acute intracranial process, old CVA. A chest x-ray was performed 2 days ago, which shows small bilateral pleural effusions and congestive heart failure. ASSESSMENT: 1. Hypercapnic respiratory failure. 2. History of chronic obstructive pulmonary disease with suspected early acute exacerbation. 3. Decompensated heart failure. 4. Atrial fibrillation. 5. Hyperlipidemia. 6. Dementia. 7. Possible syncopal episode. PLAN: For the patient, we would continue nebulizer treatments q.4. She is on intravenous antibiotics with ____ intravenous steroids. We would order p.r.n. BiPAP. We will place her on it for now and recheck a blood gas this afternoon and if things do improve, we can try her off of the BiPAP and then resume at night and ___ p.r.n. distress. DVT prophylaxis, aspiration precautions, O2 to maintain saturations greater than 92%, and pulmonary function test when her condition does improve. We will continue to follow the patient for the remainder of the hospital stay. Keren Bernal D.O. DR: ALEX JOB#: [id number] CC:
[2018-12-18] VITALS: BP 122/61
[2018-12-18] MEDS: Albuterol/Ipratropium 3ml neb HHN SCH ×6 (03:20→23:21)
[2018-12-18 04:00] VITALS: BP 113/58
[2018-12-18 06:06] LABS: HEMATOCRIT 31.2 % (37.0-47.0); HEMOGLOBIN 9.5 G/DL (12.0-16.0); MEAN CORPUSCULAR VOLUME 93 FL (80-99); PLATELET COUNT 258 K/UL (150-450); RED BLOOD COUNT 3.34 M/UL (4.20-5.40); RED CELL DISTRIBUTION WIDTH 16.7 % (11.6-14.8)
[2018-12-18] MEDS: dilTIAZem HCl 60mg tab ORAL SCH ×3 (06:26→21:04)
[2018-12-18] MEDS: Zoysn 3.37gm in NS 100ML IVPB SCH ×3 (06:26→21:03)
[2018-12-18 06:41] LABS: ALANINE AMINOTRANSFERASE 15 U/L (12-78); ALBUMIN 2.9 G/DL (3.4-5.0); ALBUMIN/GLOBULIN RATIO 0.7 (1.0-2.7); ALKALINE PHOSPHATASE 113 U/L (46-116); ANION GAP 5 mmol/L (5-15); ASPARTATE AMINO TRANSFERASE 13 U/L (15-37); BILIRUBIN,TOTAL 0.4 MG/DL (0.2-1.0); BLOOD UREA NITROGEN 18 mg/dL (7-18); CALCIUM 9.2 MG/DL (8.5-10.1); CARBON DIOXIDE 34 MMOL/L (21-32); CHLORIDE 106 MMOL/L (98-107); CREATININE 1.1 MG/DL (0.55-1.30); POTASSIUM 4.4 MMOL/L (3.5-5.1); SODIUM 145 MMOL/L (136-145)
--- NOTE | 2018-12-18 07:25 | NUR ---
HAND-OFF: Report given to Emily HARRIS. Patient showing no signs of distress.
--- NOTE | 2018-12-18 07:33 | General Progress Note ---
Assessment/Plan Assessment/Plan: Assessment - GI Bleed - negative EGD - CHF - Arrhythmias - Syncope - Azotemia - resolved - Anemia - anemia Recommendations - advance po diet - colonoscopy deferred to Wednesday - monitor labs - Low K diet Subjective ROS Limited/Unobtainable: Yes Allergies: Coded Allergies: No Known Allergies (Unverified , 06/05/14) Objective Last 24 Hour Vital Signs Date Time Temp Pulse Resp B/P (MAP) Pulse Ox O2 Delivery O2 Flow Rate FiO2 12/18/18 07:22 98 Bi-pap 30 12/18/18 07:22 70 16 98 Facial 15.0 30 12/18/18 07:22 70 16 98 Bi-pap 30 12/18/18 06:26 69 117/68 12/18/18 05:30 70 14 97 Facial 15.0 30 12/18/18 04:00 28 12/18/18 04:00 Bi-pap Bi-pap 12/18/18 04:00 74 12/18/18 04:00 98.2 80 18 113/58 (76) 99 12/18/18 03:21 71 15 94 Bi-pap 30 12/18/18 03:21 75 19 98 Bi-pap 15.0 30 12/18/18 03:21 71 15 95 Facial 15.0 30 12/18/18 01:35 74 16 98 Facial 15.0 30 12/18/18 00:00 Bi-pap Bi-pap 12/18/18 00:00 28 12/18/18 00:00 98.0 75 21 122/61 (81) 99 12/17/18 23:37 71 12/17/18 23:34 Bi-pap 12/17/18 23:34 Bi-pap 12/17/18 22:59 77 18 96 Facial 15.0 30 12/17/18 21:39 83 104/55 12/17/18 20:51 87 23 98 Facial 15.0 30 12/17/18 20:00 97.6 83 20 104/55 (71) 97 12/17/18 20:00 28 12/17/18 20:00 Bi-pap Bi-pap 12/17/18 19:24 77 19 100 Bi-pap 15.0 30 12/17/18 19:23 83 12/17/18 18:49 88 19 96 Bi-pap 30 12/17/18 18:46 91 19 96 Facial 15.0 30 12/17/18 18:45 97 Bi-pap 30 12/17/18 17:10 73 16 96 Facial 15.0 30 12/17/18 16:00 77 12/17/18 16:00 Bi-pap Bi-pap 12/17/18 16:00 98.8 79 26 140/64 (89) 100 12/17/18 15:35 78 18 98 Bi-pap 15.0 30 12/17/18 15:24 81 25 100 Bi-pap 15.0 30 12/17/18 15:23 75 15 97 Facial 15.0 30 12/17/18 13:45 28 12/17/18 13:40 82 16 95 Facial 15.0 30 12/17/18 12:45 Bi-pap Bi-pap 12/17/18 12:17 86 116/66 12/17/18 12:00 92 12/17/18 12:00 Nasal Cannula 2.0 Nasal Cannula 2.0 12/17/18 12:00 1.0 12/17/18 12:00 99.1 86 18 116/66 (83) 98 12/17/18 11:05 Nasal Cannula 12/17/18 11:05 Nasal Cannula 12/17/18 10:36 90 129/63 12/17/18 10:36 90 129/63 12/17/18 08:15 90 20 98 Nasal Cannula 2.0 28 12/17/18 08:15 98 Nasal Cannula 2.0 28 12/17/18 08:00 Nasal Cannula 2.0 Nasal Cannula 2.0 12/17/18 08:00 2.0 12/17/18 08:00 99.1 102 18 129/63 (85) 100 12/17/18 08:00 103 Intake and Output 12/17/18 12/18/18 18:59 06:59 Intake Total 380.0 ml 290.0 ml Output Total 800 ml 650 ml Balance -420.0 ml -360.0 ml Intake Oral 120 ml 150 ml IV Total 260.0 ml 140.0 ml Output Urine Total 800 ml 650 ml # Voids 1 1 # Bowel Movements 2 Laboratory Tests 12/17/18 11:07: Arterial Blood pH 7.309L, Arterial Blood Partial Pressure CO2 69.3*H, Arterial Blood Partial Pressure O2 106.9H, Arterial Blood HCO3 34.0H, Arterial Blood Oxygen Saturation 97.4, Arterial Blood Base Excess 6.1H, Hal Test Positive 12/17/18 18:55: Urine Color Pale yellow, Urine Appearance Clear, Urine pH 7, Urine Specific [place] 1.005, Urine Protein Negative, Urine Glucose (UA) Negative, Urine Ketones Negative, Urine Blood 1+H, Urine Nitrite Negative, Urine Bilirubin Negative, Urine Urobilinogen Normal, Urine Leukocyte Esterase Negative, Urine RBC 2-4H, Urine WBC 0-2, Urine Squamous Epithelial Cells Few, Urine Bacteria Few , Urine Fine Granular Casts 2-4H 12/18/18 03:50: White Blood Count 13.0H, Red Blood Count 3.34L, Hemoglobin 9.5L, Hematocrit 31.2L, Mean Corpuscular Volume 93, Mean Corpuscular Hemoglobin 28.4, Mean Corpuscular Hemoglobin Concent 30.4L, Red Cell Distribution Width 16.7H, Platelet Count 258, Mean Platelet Volume 5.4L, Neutrophils (%) (Auto) , Lymphocytes (%) (Auto) , Monocytes (%) (Auto) , Eosinophils (%) (Auto) , Basophils (%) (Auto) , Neutrophils % (Manual) [Pending], Lymphocytes % (Manual) [Pending], Platelet Estimate [Pending], Platelet Morphology [Pending], Sodium Level 145, Potassium Level 4.4, Chloride Level 106, Carbon Dioxide Level 34H, Anion Gap 5, Blood Urea Nitrogen 18, Creatinine 1.1, Estimat Glomerular Filtration Rate , Glucose Level 136H, Calcium Level 9.2, Total Bilirubin 0.4, Aspartate Amino Transf (AST/SGOT) 13L, Alanine Aminotransferase (ALT/SGPT) 15, Alkaline Phosphatase 113, Total Protein 6.9, Albumin 2.9L, Globulin 4.0, Albumin /Globulin Ratio 0.7L Height (Feet): 5 Height (Inches): 3.00 Weight (Pounds): 180 General Appearance: no apparent distress EENT: normal ENT inspection Neck: supple Cardiovascular: normal rate Respiratory/Chest: decreased breath sounds Abdomen: normal bowel sounds, non tender, soft Extremities: non-tender Sung Tong MD Dec 18, 2018 07:33
--- NOTE | 2018-12-18 07:35 | NUR ---
NURSE NOTES: Received pt from Vladimir López RN with no cardiopulmonary distress noted. Pt is AAOx1, on BiPap 15/5 FiO2 28%. Pt has a L 20g AC. Clifford noted draining yellow. Pt is hooked to color television console monitor currently SR. Bed is in lowest position, call light within reach, side rails up x 3. Will continue to monitor pt. Addendum: 12/18/18 at 0736 by Emily Dowling RN Amendment: correct time [id number]
[2018-12-18 08:00] VITALS: BP 114/58
[2018-12-18] MEDS ORDERED: Bisacodyl EC 5mg tab ORAL SCH ×2 (08:00→08:36)
[2018-12-18] MEDS: Flonase Nasal Inhaler 16gm NASAL SCH ×2 (08:12→17:42)
[2018-12-18] MEDS: Solu-MEDROL 40mg Inj IVP SCH ×2 (08:12→21:02)
[2018-12-18] MEDS: Docusate 100mg cap ORAL SCH ×2 (08:14→17:42)
[2018-12-18] MEDS: Milk of Magnesia 30ml Ud ORAL SCH (08:14)
--- NOTE | 2018-12-18 08:36 | NUR ---
NURSE NOTES: 1 bisacodyl tab (5mg) was wasted and 25mg metoprolol (dropped on floor). Spoke w/ Joel from pharmacy and instructed to place a 1 time order for both medications.
[2018-12-18] MEDS: Metoprolol Succinate XL 25mg tab ORAL SCH (08:42)
--- NOTE | 2018-12-18 08:50 | NUR ---
RESPIRATORY NOTE: Placed pt on NC @ 3L for medication administration by nurse. tolerating well. Pt was left on NC per MD order and ABG results. Bipap standby. No SOB. No resp distress noted. Will continue to monitor.
--- NOTE | 2018-12-18 08:56 | Pulmonology Progress Note ---
Assessment/Plan Assessment/Plan 1. Hypercapnic respiratory failure. 2. History of chronic obstructive pulmonary disease with suspected early acute exacerbation. 3. Decompensated heart failure. 4. Atrial fibrillation. 5. Hyperlipidemia. 6. Dementia. 7. Possible syncopal episode. fu abg this am if abg ok remove bipap and will need qhs and prn distress negative io with diuresis nebs rate control fu cxr in am aspiration precuations swallow eval if toelratign off bipap Subjective ROS Limited/Unobtainable: Yes Allergies: Coded Allergies: No Known Allergies (Unverified , 06/05/14) Subjective more awake on bipap since yesterday abg pending no reports of cp nv or bleeding Objective Last 24 Hour Vital Signs Date Time Temp Pulse Resp B/P (MAP) Pulse Ox O2 Delivery O2 Flow Rate FiO2 12/18/18 08:42 67 114/58 12/18/18 07:29 68 16 99 Bi-pap 15.0 30 12/18/18 07:22 98 Bi-pap 30 12/18/18 07:22 70 16 98 Facial 15.0 30 12/18/18 07:22 70 16 98 Bi-pap 30 12/18/18 06:26 69 117/68 12/18/18 05:30 70 14 97 Facial 15.0 30 12/18/18 04:00 28 12/18/18 04:00 Bi-pap Bi-pap 12/18/18 04:00 74 12/18/18 04:00 98.2 80 18 113/58 (76) 99 12/18/18 03:21 71 15 94 Bi-pap 30 12/18/18 03:21 75 19 98 Bi-pap 15.0 30 12/18/18 03:21 71 15 95 Facial 15.0 30 12/18/18 01:35 74 16 98 Facial 15.0 30 12/18/18 00:00 Bi-pap Bi-pap 12/18/18 00:00 28 12/18/18 00:00 98.0 75 21 122/61 (81) 99 12/17/18 23:37 71 12/17/18 23:34 Bi-pap 12/17/18 23:34 Bi-pap 12/17/18 22:59 77 18 96 Facial 15.0 30 12/17/18 21:39 83 104/55 12/17/18 20:51 87 23 98 Facial 15.0 30 12/17/18 20:00 97.6 83 20 104/55 (71) 97 12/17/18 20:00 28 12/17/18 20:00 Bi-pap Bi-pap 12/17/18 19:24 77 19 100 Bi-pap 15.0 30 12/17/18 19:23 83 12/17/18 18:49 88 19 96 Bi-pap 30 12/17/18 18:46 91 19 96 Facial 15.0 30 12/17/18 18:45 97 Bi-pap 30 12/17/18 17:10 73 16 96 Facial 15.0 30 12/17/18 16:00 77 12/17/18 16:00 Bi-pap Bi-pap 12/17/18 16:00 98.8 79 26 140/64 (89) 100 12/17/18 15:35 78 18 98 Bi-pap 15.0 30 12/17/18 15:24 81 25 100 Bi-pap 15.0 30 12/17/18 15:23 75 15 97 Facial 15.0 30 12/17/18 13:45 28 12/17/18 13:40 82 16 95 Facial 15.0 30 12/17/18 12:45 Bi-pap Bi-pap 12/17/18 12:17 86 116/66 12/17/18 12:00 92 12/17/18 12:00 Nasal Cannula 2.0 Nasal Cannula 2.0 12/17/18 12:00 1.0 12/17/18 12:00 99.1 86 18 116/66 (83) 98 12/17/18 11:05 Nasal Cannula 12/17/18 11:05 Nasal Cannula 12/17/18 10:36 90 129/63 12/17/18 10:36 90 129/63 Intake and Output 12/17/18 12/18/18 18:59 06:59 Intake Total 380.0 ml 290.0 ml Output Total 800 ml 650 ml Balance -420.0 ml -360.0 ml Intake Oral 120 ml 150 ml IV Total 260.0 ml 140.0 ml Output Urine Total 800 ml 650 ml # Voids 1 1 # Bowel Movements 2 General Appearance: WD/WN Respiratory/Chest: crackles/rales, rhonchi Cardiovascular: normal rate, regular rhythm Abdomen: soft, non tender, no organomegaly Neurologic/Psychiatric: alert Musculoskeletal: normal muscle bulk Microbiology Date/Time Source Procedure Growth Status 12/17/18 18:00 Sputum Induced Gram Stain - Final Resulted 12/17/18 18:00 Sputum Induced Sputum Culture Pending Resulted 12/17/18 18:55 Straight Cath Urine Culture - Preliminary NO GROWTH Resulted Laboratory Tests 12/17/18 11:07: Arterial Blood pH 7.309L, Arterial Blood Partial Pressure CO2 69.3*H, Arterial Blood Partial Pressure O2 106.9H, Arterial Blood HCO3 34.0H, Arterial Blood Oxygen Saturation 97.4, Arterial Blood Base Excess 6.1H, Hal Test Positive 12/17/18 18:55: Urine Color Pale yellow, Urine Appearance Clear, Urine pH 7, Urine Specific [place] 1.005, Urine Protein Negative, Urine Glucose (UA) Negative, Urine Ketones Negative, Urine Blood 1+H, Urine Nitrite Negative, Urine Bilirubin Negative, Urine Urobilinogen Normal, Urine Leukocyte Esterase Negative, Urine RBC 2-4H, Urine WBC 0-2, Urine Squamous Epithelial Cells Few, Urine Bacteria Few , Urine Fine Granular Casts 2-4H 12/18/18 03:50: White Blood Count 13.0H, Red Blood Count 3.34L, Hemoglobin 9.5L, Hematocrit 31.2L, Mean Corpuscular Volume 93, Mean Corpuscular Hemoglobin 28.4, Mean Corpuscular Hemoglobin Concent 30.4L, Red Cell Distribution Width 16.7H, Platelet Count 258, Mean Platelet Volume 5.4L, Neutrophils (%) (Auto) , Lymphocytes (%) (Auto) , Monocytes (%) (Auto) , Eosinophils (%) (Auto) , Basophils (%) (Auto) , Differential Total Cells Counted 100, Neutrophils % ( Manual) 94H, Lymphocytes % (Manual) 5L, Monocytes % (Manual) 1, Eosinophils % ( Manual) 0, Basophils % (Manual) 0, Band Neutrophils 0, Platelet Estimate Adequate, Platelet Morphology Normal, Hypochromasia 1+, Anisocytosis 2+, Sodium Level 145, Potassium Level 4.4, Chloride Level 106, Carbon Dioxide Level 34H, Anion Gap 5, Blood Urea Nitrogen 18, Creatinine 1.1, Estimat Glomerular Filtration Rate , Glucose Level 136H, Calcium Level 9.2, Total Bilirubin 0.4, Aspartate Amino Transf (AST/SGOT) 13L, Alanine Aminotransferase (ALT/SGPT) 15, Alkaline Phosphatase 113, Total Protein 6.9, Albumin 2.9L, Globulin 4.0, Albumin /Globulin Ratio 0.7L Current Medications Medications (Trade) Dose Ordered Sig/Kate Route PRN Reason Start Time Stop Time Status Last Admin Dose Admin Acetaminophen (Tylenol) 650 mg Q4H PRN ORAL Mild Pain (1-3)/fever 12/12/18 18:15 01/11/19 18:14 12/15/18 08:47 Acetaminophen (Tylenol) 650 mg Q4H PRN RECTAL Mild Pain (1-3)/FEVER 12/12/18 18:15 01/11/19 18:14 Acetazolamide (Diamox) 250 mg TWICE A DAY ORAL 12/17/18 18:00 01/16/19 17:59 12/18/18 08:13 Albuterol/ Ipratropium (Albuterol/ Ipratropium) 3 ml Q4HRT HHN 12/18/18 03:00 12/23/18 02:59 12/18/18 07:31 Artificial Tears (Akwa-Tears) 1 drop BID BOTH EYES 12/13/18 09:00 01/12/19 08:59 12/18/18 08:12 Atorvastatin Calcium (Lipitor) 10 mg BEDTIME ORAL 12/12/18 21:00 01/11/19 20:59 12/17/18 21:39 Bisacodyl (Dulcolax) 5 mg ONCE ORAL 12/18/18 08:36 12/18/18 09:30 12/18/18 08:43 Bisacodyl (Dulcolax) 20 mg ONCE ORAL 12/18/18 08:00 12/18/18 09:00 12/18/18 08:13 Dextrose (Dextrose 50%) 25 ml Q30M PRN IV Hypoglycemia 12/12/18 18:15 01/11/19 18:14 Dextrose (Dextrose 50%) 50 ml Q30M PRN IV Hypoglycemia 12/12/18 18:15 01/11/19 18:14 Dextrose/ Electrolytes 1,000 ml @ 30 mls/hr Q24H IV 12/17/18 13:00 01/16/19 12:59 12/17/18 13:32 Diltiazem HCl (Cardizem) 60 mg EVERY 8 HOURS ORAL 12/17/18 22:00 01/16/19 21:59 12/18/18 06:26 Docusate Sodium (Colace) 100 mg BID ORAL 12/13/18 09:00 01/12/19 08:59 12/17/18 17:46 Escitalopram Oxalate (Lexapro) 5 mg DAILY ORAL 12/13/18 09:00 01/12/19 08:59 12/18/18 08:12 Famotidine (Pepcid) 20 mg QHS ORAL 12/16/18 21:00 01/15/19 20:59 12/17/18 21:38 Fluticasone Propionate (Flonase) 1 spray TWICE A DAY NASAL 12/13/18 09:00 01/12/19 08:59 12/18/18 08:12 Furosemide (Lasix) 20 mg DAILY IV 12/18/18 09:00 01/17/19 08:59 12/18/18 08:43 Gabapentin (Neurontin) 300 mg QHS ORAL 12/12/18 21:00 01/11/19 20:59 12/17/18 21:40 Magnesium Hydroxide (Mom) 30 ml DAILY ORAL 12/13/18 09:00 01/12/19 08:59 12/18/18 08:14 Magnesium Citrate (Citrate Of Magnesia) 300 ml ONCE ORAL 12/18/18 09:00 12/18/18 10:00 12/18/18 08:42 Methylprednisolone Sodium Succinate (Solu-MEDROL) 40 mg EVERY 12 HOURS IVP 12/17/18 21:00 01/16/19 20:59 12/18/18 08:12 Metoprolol Succinate (Toprol XL) 25 mg DAILY ORAL 12/13/18 09:00 01/12/19 08:59 12/18/18 08:42 Nitroglycerin (Ntg) 0.4 mg Q5MIN X 3 DOSES PRN SL Prn Chest Pain 12/12/18 18:45 01/11/19 18:44 Piperacillin Sod/ Tazobactam Sod 3.375 gm/Sodium Chloride 110 ml @ 27.5 mls/hr EVERY 8 HOURS IVPB 12/17/18 14:00 12/22/18 13:59 12/18/18 06:26 Potassium Chloride (K-Dur) 20 meq DAILY ORAL 12/17/18 09:00 01/16/19 08:59 12/18/18 08:13 Keren Bernal DO Dec 18, 2018 08:56
[2018-12-18] MEDS ORDERED: Magnesium Citrate Liq Btl ORAL SCH (09:00)
--- NOTE | 2018-12-18 10:46 | General Progress Note ---
Assessment/Plan Problem List: (1) COPD (chronic obstructive pulmonary disease) ICD Codes: J44.9 - Chronic obstructive pulmonary disease, unspecified SNOMED: 16194608 (2) CHF (congestive heart failure) ICD Codes: I50.9 - Heart failure, unspecified SNOMED: 06117613 (3) Paroxysmal A-fib ICD Codes: I48.0 - Paroxysmal atrial fibrillation SNOMED: 734740422 (4) Hypotension ICD Codes: I95.9 - Hypotension, unspecified SNOMED: 28500065 (5) SITA (acute kidney injury) ICD Codes: N17.9 - Acute kidney failure, unspecified SNOMED: 83685218 (6) Hyperkalemia ICD Codes: E87.5 - Hyperkalemia SNOMED: 77110694 (7) Anemia ICD Codes: D64.9 - Anemia, unspecified SNOMED: 969404633 Qualifiers: Qualified Codes: D64.9 - Anemia, unspecified (8) Lower GI bleed ICD Codes: K92.2 - Gastrointestinal hemorrhage, unspecified SNOMED: 74437248 (9) Elevated troponin ICD Codes: R74.8 - Abnormal levels of other serum enzymes SNOMED: 795441708, 375703903, 870838589 (10) Metabolic encephalopathy ICD Codes: G93.41 - Metabolic encephalopathy SNOMED: 62581501 Assessment/Plan: prep for colon cont tele K 6 repeat nl, lasix restarted, colonoscopy deferred to wednesday as dyspnea earlier--metabolic enceph check abg, high pCO2, given bipap steroids diuresiss, hhn better today pulm care, repeat cxr reviewed Subjective Constitutional: Reports: weakness HEENT: Reports: no symptoms Cardiovascular: Reports: irregular heart rate Respiratory: Reports: cough Gastrointestinal/Abdominal: Reports: no symptoms Genitourinary: Reports: incontinence Neurologic/Psychiatric: Reports: pre-existing deficit Endocrine: Reports: no symptoms Hematologic/Lymphatic: Reports: anemia Allergies: Coded Allergies: No Known Allergies (Unverified , 06/05/14) Objective Last 24 Hour Vital Signs Date Time Temp Pulse Resp B/P (MAP) Pulse Ox O2 Delivery O2 Flow Rate FiO2 12/18/18 08:42 67 114/58 12/18/18 08:00 97.9 67 20 114/58 (76) 97 12/18/18 08:00 85 12/18/18 07:29 68 16 99 Bi-pap 15.0 30 12/18/18 07:22 98 Bi-pap 30 12/18/18 07:22 70 16 98 Facial 15.0 30 12/18/18 07:22 70 16 98 Bi-pap 30 12/18/18 06:26 69 117/68 12/18/18 05:30 70 14 97 Facial 15.0 30 12/18/18 04:00 28 12/18/18 04:00 Bi-pap Bi-pap 12/18/18 04:00 74 12/18/18 04:00 98.2 80 18 113/58 (76) 99 12/18/18 03:21 71 15 94 Bi-pap 30 12/18/18 03:21 75 19 98 Bi-pap 15.0 30 12/18/18 03:21 71 15 95 Facial 15.0 30 12/18/18 01:35 74 16 98 Facial 15.0 30 12/18/18 00:00 Bi-pap Bi-pap 12/18/18 00:00 28 12/18/18 00:00 98.0 75 21 122/61 (81) 99 12/17/18 23:37 71 12/17/18 23:34 Bi-pap 12/17/18 23:34 Bi-pap 12/17/18 22:59 77 18 96 Facial 15.0 30 12/17/18 21:39 83 104/55 12/17/18 20:51 87 23 98 Facial 15.0 30 12/17/18 20:00 97.6 83 20 104/55 (71) 97 12/17/18 20:00 28 12/17/18 20:00 Bi-pap Bi-pap 12/17/18 19:24 77 19 100 Bi-pap 15.0 30 12/17/18 19:23 83 12/17/18 18:49 88 19 96 Bi-pap 30 12/17/18 18:46 91 19 96 Facial 15.0 30 12/17/18 18:45 97 Bi-pap 30 12/17/18 17:10 73 16 96 Facial 15.0 30 12/17/18 16:00 77 12/17/18 16:00 Bi-pap Bi-pap 12/17/18 16:00 98.8 79 26 140/64 (89) 100 12/17/18 15:35 78 18 98 Bi-pap 15.0 30 12/17/18 15:24 81 25 100 Bi-pap 15.0 30 12/17/18 15:23 75 15 97 Facial 15.0 30 12/17/18 13:45 28 12/17/18 13:40 82 16 95 Facial 15.0 30 12/17/18 12:45 Bi-pap Bi-pap 12/17/18 12:17 86 116/66 12/17/18 12:00 92 12/17/18 12:00 Nasal Cannula 2.0 Nasal Cannula 2.0 12/17/18 12:00 1.0 12/17/18 12:00 99.1 86 18 116/66 (83) 98 12/17/18 11:05 Nasal Cannula 12/17/18 11:05 Nasal Cannula Intake and Output 12/17/18 12/18/18 18:59 06:59 Intake Total 380.0 ml 290.0 ml Output Total 800 ml 650 ml Balance -420.0 ml -360.0 ml Intake Oral 120 ml 150 ml IV Total 260.0 ml 140.0 ml Output Urine Total 800 ml 650 ml # Voids 1 1 # Bowel Movements 2 Laboratory Tests 12/17/18 11:07: Arterial Blood pH 7.309L, Arterial Blood Partial Pressure CO2 69.3*H, Arterial Blood Partial Pressure O2 106.9H, Arterial Blood HCO3 34.0H, Arterial Blood Oxygen Saturation 97.4, Arterial Blood Base Excess 6.1H, Hal Test Positive 12/17/18 18:55: Urine Color Pale yellow, Urine Appearance Clear, Urine pH 7, Urine Specific [place] 1.005, Urine Protein Negative, Urine Glucose (UA) Negative, Urine Ketones Negative, Urine Blood 1+H, Urine Nitrite Negative, Urine Bilirubin Negative, Urine Urobilinogen Normal, Urine Leukocyte Esterase Negative, Urine RBC 2-4H, Urine WBC 0-2, Urine Squamous Epithelial Cells Few, Urine Bacteria Few , Urine Fine Granular Casts 2-4H 12/18/18 03:50: White Blood Count 13.0H, Red Blood Count 3.34L, Hemoglobin 9.5L, Hematocrit 31.2L, Mean Corpuscular Volume 93, Mean Corpuscular Hemoglobin 28.4, Mean Corpuscular Hemoglobin Concent 30.4L, Red Cell Distribution Width 16.7H, Platelet Count 258, Mean Platelet Volume 5.4L, Neutrophils (%) (Auto) , Lymphocytes (%) (Auto) , Monocytes (%) (Auto) , Eosinophils (%) (Auto) , Basophils (%) (Auto) , Differential Total Cells Counted 100, Neutrophils % ( Manual) 94H, Lymphocytes % (Manual) 5L, Monocytes % (Manual) 1, Eosinophils % ( Manual) 0, Basophils % (Manual) 0, Band Neutrophils 0, Platelet Estimate Adequate, Platelet Morphology Normal, Hypochromasia 1+, Anisocytosis 2+, Sodium Level 145, Potassium Level 4.4, Chloride Level 106, Carbon Dioxide Level 34H, Anion Gap 5, Blood Urea Nitrogen 18, Creatinine 1.1, Estimat Glomerular Filtration Rate , Glucose Level 136H, Calcium Level 9.2, Total Bilirubin 0.4, Aspartate Amino Transf (AST/SGOT) 13L, Alanine Aminotransferase (ALT/SGPT) 15, Alkaline Phosphatase 113, Total Protein 6.9, Albumin 2.9L, Globulin 4.0, Albumin /Globulin Ratio 0.7L 12/18/18 08:48: Arterial Blood pH 7.400, Arterial Blood Partial Pressure CO2 52.0H, Arterial Blood Partial Pressure O2 70.5L, Arterial Blood HCO3 31.7H, Arterial Blood Oxygen Saturation 92.6L, Arterial Blood Base Excess 5.9H, Hal Test Positive Height (Feet): 5 Height (Inches): 3.00 Weight (Pounds): 180 General Appearance: no apparent distress, alert EENT: normal ENT inspection Neck: normal alignment Cardiovascular: regular rhythm Respiratory/Chest: rhonchi - bilaterally Abdomen: non tender, soft Edema: no edema noted Arm (L), no edema noted Arm (R), no edema noted Leg (L), no edema noted Leg (R), no edema noted Pedal (L), no edema noted Pedal (R), no edema noted Generalized Pastor Bowen MD Dec 18, 2018 10:46
[2018-12-18 12:00] VITALS: BP 125/63
[2018-12-18] MEDS: D5W w/KCl 20mEq 1,000 ML IV SCH (13:10)
--- NOTE | 2018-12-18 14:09 | Diagnostic Imaging Report ---
EXAM: US Duplex Bilateral Lower Extremity Veins CLINICAL HISTORY: DVT TECHNIQUE: Real-time duplex ultrasound scan of the bilateral lower extremity veins integrating B-mode two-dimensional vascular structure, Doppler spectral analysis, color flow Doppler imaging and compression. COMPARISON: None FINDINGS: Right deep veins: Unremarkable. No DVT in the right common femoral, femoral, proximal deep femoral or popliteal veins. The veins demonstrate normal color flow, are normally compressible, with normal phasic flow and/or augmentation response. Right superficial veins: Unremarkable. No thrombus in the visualized right great saphenous vein. Left deep veins: Unremarkable. No DVT in the left common femoral, femoral, proximal deep femoral or popliteal veins. The veins demonstrate normal color flow, are normally compressible, with normal phasic flow and/or augmentation response. Left superficial veins: Unremarkable. No thrombus in the visualized left great saphenous vein. Soft tissues: No acute findings. No popliteal cyst. IMPRESSION: No deep venous thrombosis identified in either lower extremity.
[2018-12-18 16:00] VITALS: BP 109/62
--- NOTE | 2018-12-18 16:15 | Progress Note ---
CARDIOLOGY PROGRESS NOTE DATE: 12/17/2018 SUBJECTIVE: The patient was seen and evaluated with nurse at bedside. The patient is having episodes of pauses with atrial fibrillation with a baseline rhythm of atrial fibrillation. The patient has been on her rate control regimen of Cardizem and metoprolol. The patient also was increasingly congested and was seen in pulmonary consultation today. She had an abnormal blood gas revealing pH 7.31, pCO2 69, and pO2 107. OBJECTIVE: LUNGS: Diminished breath sounds. Few rales. HEART: Irregularly irregular rhythm. S1 and S2. ABDOMEN: Soft. EXTREMITIES: Trace edema. LABORATORY DATA: Further notable for sodium 145, potassium 4.4, bicarb 33, BUN 12, and creatinine 1.1. White count 15 and hemoglobin 10. IMPRESSION: 1. Atrial fibrillation. 2. Conduction system disease. 3. Acute on chronic respiratory acidosis. 4. Acute on chronic diastolic congestive heart failure. 5. Compensatory metabolic alkalosis. 6. Anemia, status post gastrointestinal bleeding. PLAN: 1. Acetazolamide added to help stimulate respiratory drive by decreasing alkalosis. 2. Continue cautious diuresis. 3. BiPAP support per property analyst. 4. Replace potassium as needed. 5. Serial hemoglobin. 6. Deferring colonoscopy at this time. 7. Diltiazem dosing will be decreased as well to decrease bradycardic episodes and pauses. Jan Moreno M.D. DR: BRENT JOB#: [id number] CC:
--- NOTE | 2018-12-18 16:30 | Progress Note ---
DATE: 12/18/2018 CARDIOLOGY PROGRESS NOTE: SUBJECTIVE: The patient has been on BiPAP since yesterday due to abnormal blood gases, which have improved today. Blood gas this morning 7.4, 52, 70. The patient was started on acetazolamide yesterday and had diuretic dose adjusted. She also had her diltiazem dosing decreased due to atrial fibrillation with pauses. Today, her monitored rhythm is sinus. PHYSICAL EXAMINATION: LUNGS: Better breath sounds. Few rales. CARDIAC: Regular rhythm and rate. Normal S1, S2 with a 1/6 systolic murmur at apex and a fourth heart sound. ABDOMEN: Soft. EXTREMITIES: Trace edema. LABORATORY DATA: Sodium 145, potassium 4.4, bicarbonate 34, BUN 18, creatinine 1.1. White count 13, hemoglobin 9.5. IMPRESSION: 1. Acute on chronic respiratory acidosis, now compensated. 2. Compensatory metabolic alkalosis persists. 3. Acute on chronic diastolic congestive heart failure, improved clinically. 4. Paroxysmal atrial fibrillation, now in sinus rhythm. 5. Conduction system disease with slow heart rate, better on lower dose of diltiazem. 6. Mild dehydration and hypernatremia with hypokalemia, corrected. PLAN: 1. Maintenance dose amiodarone. 2. Continue acetazolamide another day and reassess. 3. Free water replacement per Dr. Bowen has been initiated. 4. Maintain beta-román and diltiazem with titration based on clinical parameters. 5. If continued current course, may proceed with colonoscopy tomorrow. Jan Moreno M.D. DR: SAVANNAH JOB#: [id number] CC:
--- NOTE | 2018-12-18 17:28 | NUR ---
RESPIRATORY NOTE: Pt tolerating NC @ 2L. No SOB. Pt breathing normally and denies respiratory distress. Spo2 98%. Pt remains stable at this time.
--- NOTE | 2018-12-18 19:23 | NUR ---
HAND-OFF: Report given to STEVEN Gómez. Pt in stable condition.
--- NOTE | 2018-12-18 19:25 | NUR ---
NURSE NOTES: Received bedside report from STEVEN Diaz.Patient stable,A&Ox3,no c/o pain,no respiratory distress noted,SR on cardiac nurse specialist,tolerated N/C well with 2 L/min,tolerated diet well,NPO after midnight d/t colonoscopy scheduled 12/19@ 0700,BS active in all quadrants,IV asymptomatic,intact on R hand G 22 SL,bed secured in a low safety position,call light within a reach.Will continue to monitor and follow POC.
[2018-12-18 20:00] VITALS: BP 107/63
[2018-12-19] VITALS (10 sets, daily range): BP systolic 117–133; BP diastolic 58–82
[2018-12-19] MEDS: Albuterol/Ipratropium 3ml neb HHN SCH ×6 (03:49→23:26)
[2018-12-19] MEDS: Zoysn 3.37gm in NS 100ML IVPB SCH ×3 (05:57→21:35)
[2018-12-19] MEDS: dilTIAZem HCl 60mg tab ORAL SCH ×3 (05:58→21:34)
[2018-12-19 06:10] LABS: HEMATOCRIT 34.2 % (37.0-47.0); HEMOGLOBIN 10.5 G/DL (12.0-16.0); MEAN CORPUSCULAR VOLUME 92 FL (80-99); PLATELET COUNT 284 K/UL (150-450); RED BLOOD COUNT 3.71 M/UL (4.20-5.40); WHITE BLOOD COUNT 14.3 K/UL (4.8-10.8)
[2018-12-19 06:26] LABS: ANION GAP 6 mmol/L (5-15); BLOOD UREA NITROGEN 26 mg/dL (7-18); CALCIUM 9.3 MG/DL (8.5-10.1); CARBON DIOXIDE 33 MMOL/L (21-32); CHLORIDE 107 MMOL/L (98-107); CREATININE 1.3 MG/DL (0.55-1.30); POTASSIUM 3.5 MMOL/L (3.5-5.1); SODIUM 146 MMOL/L (136-145)
[2018-12-19] MEDS ORDERED: Atropine Inj 1mg/10ml Syr IV PRN (06:45)
[2018-12-19] MEDS ORDERED: DiphenhydrAMINE 50mg/ml Inj IVP PRN (06:45)
[2018-12-19] MEDS ORDERED: fentaNYL 100 mcg/2 mL IV PRN (06:45)
--- NOTE | 2018-12-19 06:49 | Anethesia Preoperative Eval ---
Anesthesia Pre-op PMH/ROS General Date of Evaluation: Dec 19, 2018 Time of Evaluation: 06:45 Anesthesiologist: shaheen ASA Score: ASA 4 Mallampati Score Class I : Soft palate, uvula, fauces, pillars visible Class II: Soft palate, uvula, fauces visible Class III: Soft palate, base of uvula visible Class IV: Only hard plate visible Mallampati Classification: Class II Surgeon: adrián Diagnosis: anemia, gi bleed Surgical Procedure: colonoscopy Anesthesia History: none Social History: smoking - nonsmoker Family History: no anesthesia problems Allergies: Coded Allergies: No Known Allergies (Unverified , 06/05/14) Medications: see eMAR Patient NPO?: Yes Past Medical History Cardiovascular: Reports: HTN, DE, arrhythmia, other - pacemaker Pulmonary: Reports: COPD Gastrointestinal/Genitourinary: Reports: GERD, other - gi bleed, neurogenic bladder Neurologic/Psychiatric: Reports: CVA, other - paralysis, closed head injury Hematology/Immune: Reports: anemia Musculoskeletal/Integumentary: Reports: OA Anesthesia Pre-op Phys. Exam Physician Exam Last Vital Signs Date Time Temp Pulse Resp B/P (MAP) Pulse Ox O2 Delivery O2 Flow Rate FiO2 12/19/18 05:58 72 120/62 12/19/18 04:42 20 97 Facial 15.0 30 12/19/18 04:00 97.3 Constitutional: NAD Neurologic: CN 2-12 intact Cardiovascular: RRR Respiratory: CTA Airway Exam Mallampati Score: Class III MO: limited Neck: flexible TMD: 2fb ROM: limited Anesthesia Pre-op A/P Labs Hematology Test 12/19/18 05:21 White Blood Count 14.3 K/UL (4.8-10.8) H Red Blood Count 3.71 M/UL (4.20-5.40) L Hemoglobin 10.5 G/DL (12.0-16.0) L Hematocrit 34.2 % (37.0-47.0) L Mean Corpuscular Volume 92 FL (80-99) Mean Corpuscular Hemoglobin 28.3 PG (27.0-31.0) Mean Corpuscular Hemoglobin Concent 30.7 G/DL (32.0-36.0) L Red Cell Distribution Width 17.0 % (11.6-14.8) H Platelet Count 284 K/UL (150-450) Mean Platelet Volume 5.3 FL (6.5-10.1) L Neutrophils (%) (Auto) % (45.0-75.0) Lymphocytes (%) (Auto) % (20.0-45.0) Monocytes (%) (Auto) % (1.0-10.0) Eosinophils (%) (Auto) % (0.0-3.0) Basophils (%) (Auto) % (0.0-2.0) Neutrophils % (Manual) Pending Lymphocytes % (Manual) Pending Platelet Estimate Pending Platelet Morphology Pending Chemistry Test 12/19/18 05:21 Sodium Level 146 MMOL/L (136-145) H Potassium Level 3.5 MMOL/L (3.5-5.1) Chloride Level 107 MMOL/L (98-107) Carbon Dioxide Level 33 MMOL/L (21-32) H Anion Gap 6 mmol/L (5-15) Blood Urea Nitrogen 26 mg/dL (7-18) H Creatinine 1.3 MG/DL (0.55-1.30) Estimat Glomerular Filtration Rate mL/min (>60) Glucose Level 172 MG/DL (74-106) H Calcium Level 9.3 MG/DL (8.5-10.1) Risk Assessment & Plan Assessment: asa4 Plan: mac Status Change Before Surgery: No Pre-Antibiotics Drug: Anahy Benitez MD Dec 19, 2018 06:49
[2018-12-19] MEDS ORDERED: NS 500ML IVPB ONE (07:00)
[2018-12-19] MEDS ORDERED: Propofol 200mg/20ml IV ONE (07:00)
[2018-12-19] MEDS ORDERED: Lidocaine 1% MPF 10mg/ml 5ml ONE (07:00)
--- NOTE | 2018-12-19 07:00 | NUR ---
NURSE NOTES: GI lab picked up patient for procedure.
--- NOTE | 2018-12-19 07:06 | NUR ---
HAND-OFF: Report given to STEVEN Diaz.Patient went to colonoscopy.
--- NOTE | 2018-12-19 07:06 | General Progress Note ---
Assessment/Plan Assessment/Plan: Assessment - GI Bleed/anemia - negative EGD - CHF - Arrhythmias - Syncope - Azotemia - resolved - Anemia - anemia - Leukocytosis - presumed due to steroids Recommendations - NPO - colonoscopy today - monitor labs - Resume PO after procedure POST PROCEDURE ADDENDUM Colonoscopy: No blood seen, rare diverticulosis Will resume PO diet No further GI w/u planned at this time Subjective Allergies: Coded Allergies: No Known Allergies (Unverified , 06/05/14) Subjective above noted feels OK no abd pain for colonoscopy today Objective Last 24 Hour Vital Signs Date Time Temp Pulse Resp B/P (MAP) Pulse Ox O2 Delivery O2 Flow Rate FiO2 12/19/18 06:53 98 Nasal Cannula 2.0 28 12/19/18 06:52 Nasal Cannula 2.0 28 12/19/18 06:52 Nasal Cannula 2.0 28 12/19/18 05:58 72 120/62 12/19/18 04:42 82 20 97 Facial 15.0 30 12/19/18 04:00 Simple Mask 4.0 Simple Mask 4.0 12/19/18 04:00 97.3 72 20 120/62 (81) 98 12/19/18 04:00 28 12/19/18 03:59 82 18 96 Bi-pap 30 12/19/18 03:50 78 19 96 Facial 15.0 30 12/19/18 03:49 80 20 95 Bi-pap 30 12/19/18 03:45 81 12/19/18 01:06 76 17 97 Facial 15.0 30 12/19/18 00:00 28 12/19/18 00:00 98.4 79 20 117/58 (77) 98 12/19/18 00:00 76 12/19/18 00:00 Simple Mask 4.0 Simple Mask 4.0 12/18/18 23:30 77 18 100 Bi-pap 30 12/18/18 23:22 72 21 98 Facial 15.0 30 12/18/18 23:21 85 19 93 Bi-pap 30 12/18/18 21:04 86 107/63 12/18/18 20:00 Simple Mask 4.0 Simple Mask 4.0 12/18/18 20:00 99.0 89 20 107/63 (78) 98 12/18/18 18:56 78 18 100 Nasal Cannula 2.0 28 12/18/18 18:48 84 18 99 Nasal Cannula 2.0 28 12/18/18 18:45 99 Nasal Cannula 2.0 28 12/18/18 16:00 Bi-pap Bi-pap 12/18/18 16:00 2.0 12/18/18 16:00 82 12/18/18 16:00 98.2 80 22 109/62 (78) 98 12/18/18 15:11 74 16 99 Nasal Cannula 2.0 28 12/18/18 15:11 78 18 98 Nasal Cannula 2.0 28 12/18/18 14:46 80 125/63 12/18/18 12:00 Bi-pap Bi-pap 12/18/18 12:00 79 12/18/18 12:00 98.7 80 20 125/63 (83) 99 12/18/18 11:28 71 16 99 Nasal Cannula 3.0 32 12/18/18 11:28 71 18 98 Nasal Cannula 3.0 32 12/18/18 10:00 2.0 12/18/18 08:42 67 114/58 12/18/18 08:00 97.9 67 20 114/58 (76) 97 12/18/18 08:00 85 12/18/18 08:00 28 12/18/18 08:00 Bi-pap Bi-pap 12/18/18 07:29 68 16 99 Bi-pap 15.0 30 12/18/18 07:22 98 Bi-pap 30 12/18/18 07:22 70 16 98 Facial 15.0 30 12/18/18 07:22 70 16 98 Bi-pap 30 Intake and Output 12/18/18 12/19/18 19:00 07:00 Intake Total 670.0 ml 435.0 ml Output Total 1050 ml 300 ml Balance -380.0 ml 135.0 ml Intake Oral 120 ml IV Total 550.0 ml 435.0 ml Output Urine Total 750 ml 300 ml Stool Total 300 ml # Voids 1 # Bowel Movements 2 Laboratory Tests 12/18/18 08:48: Arterial Blood pH 7.400, Arterial Blood Partial Pressure CO2 52.0H, Arterial Blood Partial Pressure O2 70.5L, Arterial Blood HCO3 31.7H, Arterial Blood Oxygen Saturation 92.6L, Arterial Blood Base Excess 5.9H, Hal Test Positive 12/19/18 05:21: White Blood Count 14.3H, Red Blood Count 3.71L, Hemoglobin 10.5L, Hematocrit 34.2L, Mean Corpuscular Volume 92, Mean Corpuscular Hemoglobin 28.3, Mean Corpuscular Hemoglobin Concent 30.7L, Red Cell Distribution Width 17.0H, Platelet Count 284, Mean Platelet Volume 5.3L, Neutrophils (%) (Auto) , Lymphocytes (%) (Auto) , Monocytes (%) (Auto) , Eosinophils (%) (Auto) , Basophils (%) (Auto) , Neutrophils % (Manual) [Pending], Lymphocytes % (Manual) [Pending], Platelet Estimate [Pending], Platelet Morphology [Pending], Sodium Level 146H, Potassium Level 3.5, Chloride Level 107, Carbon Dioxide Level 33H, Anion Gap 6, Blood Urea Nitrogen 26H, Creatinine 1.3, Estimat Glomerular Filtration Rate , Glucose Level 172H, Calcium Level 9.3 Height (Feet): 5 Height (Inches): 3.00 Weight (Pounds): 180 Objective WDWN AA woman NCAT supple CTA RR soft ND NT no edema non focal Mandy Perez MD Dec 19, 2018 07:06
--- NOTE | 2018-12-19 07:07 | Pre-Procedure Note/Attestation ---
Pre-Procedure Note/Attestation Complete Prior to Procedure Planned Procedure: not applicable Procedure Narrative: colonoscopy Indications for Procedure Pre-Operative Diagnosis: GI Bleed Attestation I attest that I discussed the nature of the procedure; its benefits; risks and complications; and alternatives (and the risks and benefits of such alternatives ), prior to the procedure, with the patient (or the patient's legal parts sales representative). I attest that, if there was a reasonable possibility of needing a blood transfusion, the patient (or the patient's legal parts sales representative) was given the [facility] standardized written summary, pursuant to the [place] Blood Safety Act ([place] Health and Safety Code # 1645, as amended). I attest that I re-evaluated the patient just prior to the surgery and that there has been no change in the patient's H&P, except as documented below: Mandy Perez MD Dec 19, 2018 07:06
--- NOTE | 2018-12-19 07:21 | NUR ---
NURSE NOTES: Received report from STEVEN Gómez. Pt is currently off the unit for colonoscopy procedure. Will continue plan of care when pt returns.
--- NOTE | 2018-12-19 07:43 | Endoscopy Procedure Note ---
Endoscopy Procedure Note General Indication for Procedure: anemia, GIB Procedures Performed: colonoscopy Operative Findings/Diagnosis: normal TI, dim sig polyp bx x 2, rare tics Specimen: yes Pt Tolerated Procedure Well: Yes Estimated Blood Loss: none Anesthesia Anesthesiologist: Jeanmarie espana Anesthesia: MAC Medications Medication Given: see anesthesia record Inserted Devices Implant(s) used?: No GI Core Measures 50 yrs or older w/o bx or poly: Not Applicable 10yrs. F/U recommended: Not Applicable If not recommended, why?: Mandy Perez MD Dec 19, 2018 07:43
--- NOTE | 2018-12-19 07:44 | Brief Operative Note ---
Immediate Post Operative Note Operative Note Chief Complaint: GIB,Anemia Pre-op Diagnosis: GI Bleed Procedure: EGD bx Post-op Diagnosis: gastritis Surgeon: adrián Anesthesiologist: dash espana Anesthesia: MAC Specimen: yes Complications: none Condition: stable Fluids: see anesth record Estimated Blood Loss: none Drains: none Implant(s) used?: No Mandy Perez MD Dec 19, 2018 07:44
--- NOTE | 2018-12-19 08:20 | NUR ---
Pt brought back from OR via hospital bed and O2 tank in stable condition. Vital signs as follows: 98.4 F RR18 SaO2 96% BP 129/74 and HR 74bpm. Pt is AAOx 2 on 2L O2 via NC and hooked to butter melter. currently SR. SCDs on. R hand 22g IV noted. Pt hooked to purewick. yellow urine noted draining. No skin alterations noted at this time. Bed in lowest position, side rails up x 3, alarm on and call light within reach. Will continue to monitor pt.
--- NOTE | 2018-12-19 08:38 | NUR ---
COPY CENTER OPERATORCLOTH LAYER SI:GI BLEED/ANEMIA S/P COLONOSCOPY WITH BX VS: BP 142/75, P 72, T 97.5, RR 22, SpO2 93 WBC 14.3, RBC 3.71, H&H 10.5/34.2, Na 146, BUN 26 IS:ZOSYN 110ml IVPB CARDIZEM 60mg LIPITOR 10mg GABAPENTIN 300mg D5/ELECTROLYTES x1L IV SOLU-MEDROL 40mg IVP LASIX 20mg SDU STATUS
[2018-12-19] MEDS: Docusate 100mg cap ORAL SCH ×2 (09:00→18:00)
[2018-12-19] MEDS: Milk of Magnesia 30ml Ud ORAL SCH (09:00)
[2018-12-19] MEDS: Flonase Nasal Inhaler 16gm NASAL SCH ×2 (09:06→18:14)
[2018-12-19] MEDS: Solu-MEDROL 40mg Inj IVP SCH (09:07)
[2018-12-19] MEDS: Metoprolol Succinate XL 25mg tab ORAL SCH (09:07)
--- NOTE | 2018-12-19 09:14 | Immediate Post-Op Evaluation ---
Immediate Post-Op Evalulation Immediate Post-Op Evalulation Procedure: colonoscopy with Bx Date of Evaluation: Dec 19, 2018 Time of Evaluation: 08:00 IV Fluids: 150ml 0.9ns Blood Products: none Estimated Blood Loss: negligible Blood Pressure Systolic: 133 Blood Pressure Diastolic: 80 Pulse Rate: 84 Respiratory Rate: 18 O2 Sat by Pulse Oximetry: 100 Temperature (Fahrenheit): 97.4 Pain Score (1-10): 0 Nausea: No Vomiting: No Complications none Patient Status: awake, reacts, patent Hydration Status: adequate Drug: Anahy Benitez MD Dec 19, 2018 09:14
--- NOTE | 2018-12-19 09:20 | 48 Hour Post Anesthesia Eval ---
Post Anesthesia Evaluation Procedure: colonoscopy with Bx Date of Evaluation: Dec 19, 2018 Time of Evaluation: 08:02 Blood Pressure Systolic: 131 0: 77 Pulse Rate: 71 Respiratory Rate: 18 Temperature (Fahrenheit): 97.4 O2 Sat by Pulse Oximetry: 100 Airway: patent Nausea: No Vomiting: No Pain Intensity: 0 Hydration Status: adequate Cardiopulmonary Status: stable Mental Status/LOC: patient returned to baseline Post-Anesthesia Complications: none Follow-up care needed: N/A Anahy Johnston MD Dec 19, 2018 09:20
--- NOTE | 2018-12-19 11:14 | NUR ---
ST NOTE: BEDSIDE SWALLOW EVAL RECEIVED BEDSIDE SWALLOW EVAL ORDER CHART REVIEWED PRIOR THE EVALUATION. PT IS A 78-YEAR-OLD FEMALE WHO WAS ADMITTED DUE TO SYNCOPE AND HYPOTENSION. DYSPHAGIA RISK FACTORS: H/O CVA W/R-SIDED WEAKNESS, HTN, A-FIB, COPD, GERD, PACEMAKER. 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 PLOF: PT RESIDES AT CUSTODIAL FACILITY. PT IS FULL CODE, FULL TREATMENT, OKAY FOR TRIAL PERIOD OF ARTIFICIAL NUTRITION, INCLUDING FEEDING TUBES. PER CHART, PT IS ON REGULAR WITH THIN LIQUIDS DIET. CURRENT STATUS: PT SEEN AT BEDSIDE IN AM. ALERT, COOPERATIVE, ORIENTED X 1, VERBAL, ABLE TO FOLLOW SIMPLE DIRECTIONS WITH CUES. PT WITH NC(4L). PER RN AND RT, PT REQUIRED BIPAP PRN. PER RN, NOTICED THAT PT HAS COUGH WHEN GIVEN PO, ESPECIALLY WITH LIQUIDS. 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 DUE TO PT HAS H/O CVA, PT HAS HIGH RISK FOR (SILENT) ASPIRATION. RECOMMENDATIONS: 1. FOR QUALITY OF LIFE, CONTINUE ORAL DIET CHANGED DIET CARDIAC MOIST PUREE WITH NECTAR THICK LIQUIDS 2. STRICT ASPIRATION PRECAUTIONS WITH 1TO1 ASSIST/FEED 3. MODIFIED BARIUM SWALLOW STUDY IP OR OP D/W PT AND RNCAMI. POSTED ASPIRATION/REFLUX PRECAUTIONS SIGN.
[2018-12-19] MEDS: D5W w/KCl 20mEq 1,000 ML IV SCH (13:33)
--- NOTE | 2018-12-19 15:18 | NUR ---
RD ASSESSMENT & RECOMMENDATIONS SEE CARE ACTIVITY FOR COMPLETE ASSESSMENT DAILY ESTIMATED NEEDS: Needs based on cardiac/ 59kg 25-30 kcals/kg 0395-1889 total kcals 1-1.5 g protein/kg 59-89 g total protein 20-25 mL/kg 6074-6266 total fluid mLs NUTRITION DIAGNOSIS: (1) Swallowing difficulty R/T dysphagia, h/o CVA as evidenced by FRAMING MANAGER recommends pureed moist, NTL w/ poor PO intake at this time (2) Altered nutrition related lab values R/T CHF, clinical condition as evidenced by elev BNP (95087), elev BGs (172 136), pt on solumedrol. CURRENT DIET:CARDIAC, pureed moist, NTL PO DIET RECOMMENDATIONS: LOW NA/ texture per FRAMING MANAGER ADDITIONAL RECOMMENDATIONS: * TXR PT TO BED WITH BEDSCALE, OBTAINED CALIBRATED DAILY WTS -> CHF dx, currently on a bed without bedscale * Monitor BGs closely while on solumedrol * Monitor lytes closely while on lasix, replete as needed * Rec HPN TID w/ meals w/ poor PO intake -> rec Glucerna at this time for BG control, while on steroidal med * MVI x 1 as supplement
--- NOTE | 2018-12-19 17:48 | General Progress Note ---
Assessment/Plan Problem List: (1) COPD (chronic obstructive pulmonary disease) ICD Codes: J44.9 - Chronic obstructive pulmonary disease, unspecified SNOMED: 63167132 (2) CHF (congestive heart failure) ICD Codes: I50.9 - Heart failure, unspecified SNOMED: 29391607 (3) Paroxysmal A-fib ICD Codes: I48.0 - Paroxysmal atrial fibrillation SNOMED: 556915041 (4) Hypotension ICD Codes: I95.9 - Hypotension, unspecified SNOMED: 26091025 (5) SITA (acute kidney injury) ICD Codes: N17.9 - Acute kidney failure, unspecified SNOMED: 57903792 (6) Hyperkalemia ICD Codes: E87.5 - Hyperkalemia SNOMED: 50854669 (7) Anemia ICD Codes: D64.9 - Anemia, unspecified SNOMED: 949642714 Qualifiers: Qualified Codes: D64.9 - Anemia, unspecified (8) Lower GI bleed ICD Codes: K92.2 - Gastrointestinal hemorrhage, unspecified SNOMED: 48333112 (9) Elevated troponin ICD Codes: R74.8 - Abnormal levels of other serum enzymes SNOMED: 499473124, 740723713, 557929708 (10) Metabolic encephalopathy ICD Codes: G93.41 - Metabolic encephalopathy SNOMED: 28806581 Assessment/Plan: colon done, small polyp and divertic cont tele lasix restarted, resp status improved reduce steroids Subjective Constitutional: Reports: weakness HEENT: Reports: no symptoms Cardiovascular: Reports: irregular heart rate Respiratory: Reports: cough Gastrointestinal/Abdominal: Reports: no symptoms Genitourinary: Reports: incontinence Neurologic/Psychiatric: Reports: pre-existing deficit Endocrine: Reports: no symptoms Hematologic/Lymphatic: Reports: no symptoms Allergies: Coded Allergies: No Known Allergies (Unverified , 06/05/14) Objective Last 24 Hour Vital Signs Date Time Temp Pulse Resp B/P (MAP) Pulse Ox O2 Delivery O2 Flow Rate FiO2 12/19/18 16:00 98.8 78 24 121/58 (79) 96 12/19/18 16:00 2.0 12/19/18 16:00 Nasal Cannula 2.0 Nasal Cannula 2.0 12/19/18 15:51 79 16 100 Nasal Cannula 2.0 28 12/19/18 15:45 76 16 94 Nasal Cannula 2.0 28 12/19/18 13:35 73 123/70 12/19/18 12:21 100 12/19/18 12:00 2.0 12/19/18 12:00 Nasal Cannula 2.0 Nasal Cannula 2.0 12/19/18 12:00 73 12/19/18 12:00 97.7 75 24 123/70 (87) 100 12/19/18 11:29 80 16 100 Nasal Cannula 2.0 28 12/19/18 11:20 84 16 87 Room Air 21 12/19/18 09:20 71 18 12/19/18 09:14 84 18 100 12/19/18 09:07 74 129/74 12/19/18 08:20 2.0 12/19/18 08:20 Nasal Cannula 2.0 Nasal Cannula 2.0 12/19/18 08:20 98.4 74 18 129/74 (92) 96 12/19/18 08:10 97.6 75 18 125/71 100 Nasal Cannula 3 12/19/18 08:00 87 12/19/18 07:58 71 16 131/77 100 Nasal Cannula 3 12/19/18 07:53 83 21 127/82 100 Nasal Cannula 3 12/19/18 07:48 97.4 84 19 133/80 100 Nasal Cannula 3 12/19/18 06:53 98 Nasal Cannula 2.0 12/19/18 06:52 Nasal Cannula 2.0 12/19/18 06:52 Nasal Cannula 2.0 28 12/19/18 05:58 72 120/62 12/19/18 04:42 82 20 97 Facial 15.0 30 12/19/18 04:00 Simple Mask 4.0 Simple Mask 4.0 12/19/18 04:00 97.3 72 20 120/62 (81) 98 12/19/18 04:00 28 12/19/18 03:59 82 18 96 Bi-pap 30 12/19/18 03:50 78 19 96 Facial 15.0 30 12/19/18 03:49 80 20 95 Bi-pap 30 12/19/18 03:45 81 12/19/18 01:06 76 17 97 Facial 15.0 30 12/19/18 00:00 28 12/19/18 00:00 98.4 79 20 117/58 (77) 98 12/19/18 00:00 76 12/19/18 00:00 Simple Mask 4.0 Simple Mask 4.0 12/18/18 23:30 77 18 100 Bi-pap 30 12/18/18 23:22 72 21 98 Facial 15.0 30 12/18/18 23:21 85 19 93 Bi-pap 30 12/18/18 21:04 86 107/63 12/18/18 20:00 Simple Mask 4.0 Simple Mask 4.0 12/18/18 20:00 99.0 89 20 107/63 (78) 98 12/18/18 18:56 78 18 100 Nasal Cannula 2.0 28 12/18/18 18:48 84 18 99 Nasal Cannula 2.0 28 12/18/18 18:45 99 Nasal Cannula 2.0 28 Intake and Output 12/18/18 12/19/18 19:00 07:00 Intake Total 670.0 ml 435.0 ml Output Total 1050 ml 300 ml Balance -380.0 ml 135.0 ml Intake Oral 120 ml IV Total 550.0 ml 435.0 ml Output Urine Total 750 ml 300 ml Stool Total 300 ml # Voids 1 # Bowel Movements 2 Laboratory Tests 12/19/18 05:21: White Blood Count 14.3H, Red Blood Count 3.71L, Hemoglobin 10.5L, Hematocrit 34.2L, Mean Corpuscular Volume 92, Mean Corpuscular Hemoglobin 28.3, Mean Corpuscular Hemoglobin Concent 30.7L, Red Cell Distribution Width 17.0H, Platelet Count 284, Mean Platelet Volume 5.3L, Neutrophils (%) (Auto) , Lymphocytes (%) (Auto) , Monocytes (%) (Auto) , Eosinophils (%) (Auto) , Basophils (%) (Auto) , Differential Total Cells Counted 100, Neutrophils % ( Manual) 94H, Lymphocytes % (Manual) 2L, Monocytes % (Manual) 4, Eosinophils % ( Manual) 0, Basophils % (Manual) 0, Band Neutrophils 0, Platelet Estimate Adequate, Platelet Morphology Normal, Hypochromasia 1+, Anisocytosis 1+, Sodium Level 146H, Potassium Level 3.5, Chloride Level 107, Carbon Dioxide Level 33H, Anion Gap 6, Blood Urea Nitrogen 26H, Creatinine 1.3, Estimat Glomerular Filtration Rate , Glucose Level 172H, Calcium Level 9.3 Height (Feet): 5 Height (Inches): 3.00 Weight (Pounds): 180 General Appearance: no apparent distress, alert EENT: normal ENT inspection Neck: normal alignment Cardiovascular: regularly irregular Respiratory/Chest: lungs clear, decreased breath sounds Abdomen: non tender, soft Edema: no edema noted Arm (L), no edema noted Arm (R), no edema noted Leg (L), no edema noted Leg (R), no edema noted Pedal (L), no edema noted Pedal (R), no edema noted Generalized Neurologic: motor weakness Pastor Bowen MD Dec 19, 2018 17:48
--- NOTE | 2018-12-19 18:31 | Pulmonology Progress Note ---
Assessment/Plan Assessment/Plan 1. Hypercapnic respiratory failure, improved 2. COPD with acute exacerbation, possible pneumonia. 3. Decompensated heart failure. 4. Atrial fibrillation. 5. Hyperlipidemia. 6. Dementia. 7. Possible syncopal episode. fu abg improved, pH 7.40 remove bipap, use qhs and prn distress HHN Abx aspiration precuations swallow eval if toelratign off bipap Subjective Constitutional: Reports: no symptoms Allergies: Coded Allergies: No Known Allergies (Unverified , 06/05/14) Objective Last 24 Hour Vital Signs Date Time Temp Pulse Resp B/P (MAP) Pulse Ox O2 Delivery O2 Flow Rate FiO2 12/19/18 16:00 70 12/19/18 16:00 98.8 78 24 121/58 (79) 96 12/19/18 16:00 2.0 12/19/18 16:00 Nasal Cannula 2.0 Nasal Cannula 2.0 12/19/18 15:51 79 16 100 Nasal Cannula 2.0 28 12/19/18 15:45 76 16 94 Nasal Cannula 2.0 28 12/19/18 13:35 73 123/70 12/19/18 12:21 100 12/19/18 12:00 2.0 12/19/18 12:00 Nasal Cannula 2.0 Nasal Cannula 2.0 12/19/18 12:00 73 12/19/18 12:00 97.7 75 24 123/70 (87) 100 12/19/18 11:29 80 16 100 Nasal Cannula 2.0 28 12/19/18 11:20 84 16 87 Room Air 21 12/19/18 09:20 71 18 12/19/18 09:14 84 18 100 12/19/18 09:07 74 129/74 12/19/18 08:20 2.0 12/19/18 08:20 Nasal Cannula 2.0 Nasal Cannula 2.0 12/19/18 08:20 98.4 74 18 129/74 (92) 96 12/19/18 08:10 97.6 75 18 125/71 100 Nasal Cannula 3 12/19/18 08:00 87 12/19/18 07:58 71 16 131/77 100 Nasal Cannula 3 12/19/18 07:53 83 21 127/82 100 Nasal Cannula 3 12/19/18 07:48 97.4 84 19 133/80 100 Nasal Cannula 3 12/19/18 06:53 98 Nasal Cannula 2.0 28 12/19/18 06:52 Nasal Cannula 2.0 28 12/19/18 06:52 Nasal Cannula 2.0 28 12/19/18 05:58 72 120/62 12/19/18 04:42 82 20 97 Facial 15.0 30 12/19/18 04:00 Simple Mask 4.0 Simple Mask 4.0 12/19/18 04:00 97.3 72 20 120/62 (81) 98 12/19/18 04:00 28 12/19/18 03:59 82 18 96 Bi-pap 30 12/19/18 03:50 78 19 96 Facial 15.0 30 12/19/18 03:49 80 20 95 Bi-pap 30 12/19/18 03:45 81 12/19/18 01:06 76 17 97 Facial 15.0 30 12/19/18 00:00 28 12/19/18 00:00 98.4 79 20 117/58 (77) 98 12/19/18 00:00 76 12/19/18 00:00 Simple Mask 4.0 Simple Mask 4.0 12/18/18 23:30 77 18 100 Bi-pap 30 12/18/18 23:22 72 21 98 Facial 15.0 30 12/18/18 23:21 85 19 93 Bi-pap 30 12/18/18 21:04 86 107/63 12/18/18 20:00 Simple Mask 4.0 Simple Mask 4.0 12/18/18 20:00 99.0 89 20 107/63 (78) 98 12/18/18 18:56 78 18 100 Nasal Cannula 2.0 28 12/18/18 18:48 84 18 99 Nasal Cannula 2.0 28 12/18/18 18:45 99 Nasal Cannula 2.0 28 Intake and Output 12/18/18 12/19/18 19:00 07:00 Intake Total 670.0 ml 435.0 ml Output Total 1050 ml 300 ml Balance -380.0 ml 135.0 ml Intake Oral 120 ml IV Total 550.0 ml 435.0 ml Output Urine Total 750 ml 300 ml Stool Total 300 ml # Voids 1 # Bowel Movements 2 General Appearance: no acute distress Respiratory/Chest: lungs clear, decreased breath sounds Cardiovascular: normal rate Microbiology Date/Time Source Procedure Growth Status 12/17/18 12:45 Blood Blood Culture - Preliminary NO GROWTH AFTER 24 HOURS Resulted 12/17/18 12:30 Blood Blood Culture - Preliminary NO GROWTH AFTER 24 HOURS Resulted 12/17/18 18:00 Sputum Induced Gram Stain - Final Complete 12/17/18 18:00 Sputum Induced Sputum Culture - Final NORMAL UPPER RESPIRATORY ALEXANDREA PRESENT Complete 12/17/18 18:55 Straight Cath Urine Culture - Preliminary NO GROWTH AFTER 24 HOURS Resulted Laboratory Tests 12/19/18 05:21: White Blood Count 14.3H, Red Blood Count 3.71L, Hemoglobin 10.5L, Hematocrit 34.2L, Mean Corpuscular Volume 92, Mean Corpuscular Hemoglobin 28.3, Mean Corpuscular Hemoglobin Concent 30.7L, Red Cell Distribution Width 17.0H, Platelet Count 284, Mean Platelet Volume 5.3L, Neutrophils (%) (Auto) , Lymphocytes (%) (Auto) , Monocytes (%) (Auto) , Eosinophils (%) (Auto) , Basophils (%) (Auto) , Differential Total Cells Counted 100, Neutrophils % ( Manual) 94H, Lymphocytes % (Manual) 2L, Monocytes % (Manual) 4, Eosinophils % ( Manual) 0, Basophils % (Manual) 0, Band Neutrophils 0, Platelet Estimate Adequate, Platelet Morphology Normal, Hypochromasia 1+, Anisocytosis 1+, Sodium Level 146H, Potassium Level 3.5, Chloride Level 107, Carbon Dioxide Level 33H, Anion Gap 6, Blood Urea Nitrogen 26H, Creatinine 1.3, Estimat Glomerular Filtration Rate , Glucose Level 172H, Calcium Level 9.3 Current Medications Medications (Trade) Dose Ordered Sig/Kate Route PRN Reason Start Time Stop Time Status Last Admin Dose Admin Acetaminophen (Tylenol) 650 mg Q4H PRN ORAL Mild Pain (1-3)/fever 12/12/18 18:15 01/11/19 18:14 12/15/18 08:47 Acetaminophen (Tylenol) 650 mg Q4H PRN RECTAL Mild Pain (1-3)/FEVER 12/12/18 18:15 01/11/19 18:14 Albuterol/ Ipratropium (Albuterol/ Ipratropium) 3 ml Q4HRT HHN 12/18/18 03:00 12/23/18 02:59 12/19/18 15:49 Artificial Tears (Akwa-Tears) 1 drop BID BOTH EYES 12/13/18 09:00 01/12/19 08:59 12/19/18 18:14 Atorvastatin Calcium (Lipitor) 10 mg BEDTIME ORAL 12/12/18 21:00 01/11/19 20:59 12/18/18 21:02 Dextrose (Dextrose 50%) 25 ml Q30M PRN IV Hypoglycemia 12/12/18 18:15 01/11/19 18:14 Dextrose (Dextrose 50%) 50 ml Q30M PRN IV Hypoglycemia 12/12/18 18:15 01/11/19 18:14 Diltiazem HCl (Cardizem) 60 mg EVERY 8 HOURS ORAL 12/17/18 22:00 01/16/19 21:59 12/19/18 13:35 Docusate Sodium (Colace) 100 mg BID ORAL 12/13/18 09:00 01/12/19 08:59 12/17/18 17:46 Escitalopram Oxalate (Lexapro) 5 mg DAILY ORAL 12/13/18 09:00 01/12/19 08:59 12/19/18 09:09 Famotidine (Pepcid) 20 mg QHS ORAL 12/16/18 21:00 01/15/19 20:59 12/18/18 21:02 Fluticasone Propionate (Flonase) 1 spray TWICE A DAY NASAL 12/13/18 09:00 01/12/19 08:59 12/19/18 18:14 Furosemide (Lasix) 20 mg BID IV 12/19/18 18:00 01/18/19 17:59 12/19/18 18:13 Gabapentin (Neurontin) 300 mg QHS ORAL 12/12/18 21:00 01/11/19 20:59 12/18/18 21:04 Magnesium Hydroxide (Mom) 30 ml DAILY ORAL 12/13/18 09:00 01/12/19 08:59 12/18/18 08:14 Methylprednisolone Sodium Succinate (Solu-MEDROL) 20 mg DAILY IVP 12/20/18 09:00 01/19/19 08:59 Metoprolol Succinate (Toprol XL) 25 mg DAILY ORAL 12/13/18 09:00 01/12/19 08:59 12/19/18 09:07 Nitroglycerin (Ntg) 0.4 mg Q5MIN X 3 DOSES PRN SL Prn Chest Pain 12/12/18 18:45 01/11/19 18:44 Piperacillin Sod/ Tazobactam Sod 3.375 gm/Sodium Chloride 110 ml @ 27.5 mls/hr EVERY 8 HOURS IVPB 12/17/18 14:00 12/22/18 13:59 12/19/18 13:34 Potassium Chloride (K-Dur) 20 meq DAILY ORAL 12/17/18 09:00 01/16/19 08:59 12/19/18 09:09 Gio Feng MD Dec 19, 2018 18:31
--- NOTE | 2018-12-19 19:03 | NUR ---
HAND-OFF: Report given to STEVEN Gómez. Pt in stable condition.
--- NOTE | 2018-12-19 19:04 | NUR ---
NURSE NOTES: Received bedside report from STEVEN Diaz.Patient stable,A&Ox3-4 forgetfull,no c/o pain,no respiratory distress noted,SR on threat monitoring analyst,tolerated N/C well with 2 L/min,tolerated diet well,BS active in all quadrants,colonoscopy done and resulted,IV asymptomatic,intact on R hand G 22 SL,bed secured in a low safety position,call light within a reach.Will continue to monitor and follow POC.
[2018-12-20] VITALS: BP 122/73
[2018-12-20] MEDS: Albuterol/Ipratropium 3ml neb HHN SCH ×4 (03:05→14:56)
[2018-12-20 04:00] VITALS: BP 132/72
[2018-12-20 05:17] LABS: HEMATOCRIT 37.8 % (37.0-47.0); HEMOGLOBIN 11.3 G/DL (12.0-16.0); MEAN CORPUSCULAR VOLUME 93 FL (80-99); PLATELET COUNT 277 K/UL (150-450); RED BLOOD COUNT 4.05 M/UL (4.20-5.40); RED CELL DISTRIBUTION WIDTH 16.8 % (11.6-14.8); WHITE BLOOD COUNT 15.2 K/UL (4.8-10.8)
[2018-12-20] MEDS: dilTIAZem HCl 60mg tab ORAL SCH ×2 (05:32→14:00)
[2018-12-20] MEDS: Zoysn 3.37gm in NS 100ML IVPB SCH ×2 (05:32→13:36)
[2018-12-20 05:40] LABS: ANION GAP 8 mmol/L (5-15); BLOOD UREA NITROGEN 25 mg/dL (7-18); CALCIUM 9.3 MG/DL (8.5-10.1); CARBON DIOXIDE 29 MMOL/L (21-32); CHLORIDE 106 MMOL/L (98-107); CREATININE 1.1 MG/DL (0.55-1.30); POTASSIUM 3.8 MMOL/L (3.5-5.1); SODIUM 143 MMOL/L (136-145)
--- NOTE | 2018-12-20 07:13 | NUR ---
HAND-OFF: Report given to STEVEN Regalado.Patient stable.
--- NOTE | 2018-12-20 07:26 | NUR ---
NURSE NOTES: received patient report from [facility]bo [facility]. patient is on bed asleep. not in acute distress. bed is low and locked for safety. will follow plan of care.
[2018-12-20 08:00] VITALS: BP 142/75
[2018-12-20] MEDS: Docusate 100mg cap ORAL SCH (08:31)
[2018-12-20] MEDS: Metoprolol Succinate XL 25mg tab ORAL SCH (08:31)
[2018-12-20] MEDS: Milk of Magnesia 30ml Ud ORAL SCH (08:32)
[2018-12-20] MEDS ORDERED: Solu-MEDROL 40mg Inj IVP SCH (09:00)
[2018-12-20 12:00] VITALS: BP 106/59
[2018-12-20] MEDS ORDERED: OMEPRAZOLE40 M1 ORAL (12:41)
[2018-12-20] MEDS ORDERED: K-TAB ER20 MEQ ORAL (12:41)
[2018-12-20] MEDS ORDERED: PREDNISONE20 M1 PO (12:41)
[2018-12-20] MEDS ORDERED: FUROSEMIDE20 M1 ORAL (12:41)
[2018-12-20 14:00] VITALS: BP 106/59
--- NOTE | 2018-12-20 14:22 | NUR ---
DISCHARGE PLANNED [facility] ROOM [address] SKILLED [phone] FOR NURSE TO NURSE REPORT [facility] WILL GROUP HOME PARAPROFESSIONAL
--- NOTE | 2018-12-20 15:39 | Pulmonology Progress Note ---
Assessment/Plan Assessment/Plan 1. Hypercapnic respiratory failure, improved 2. COPD with acute exacerbation, possible pneumonia. 3. Decompensated heart failure. 4. Atrial fibrillation. 5. Hyperlipidemia. 6. Dementia. 7. Possible syncopal episode. 2-3 hrs bipap last night, use prn distress HHN Abx aspiration precuations improving Subjective Constitutional: Reports: no symptoms Allergies: Coded Allergies: No Known Allergies (Unverified , 06/05/14) Objective Last 24 Hour Vital Signs Date Time Temp Pulse Resp B/P (MAP) Pulse Ox O2 Delivery O2 Flow Rate FiO2 12/20/18 14:56 Room Air 21 12/20/18 14:56 Room Air 21 12/20/18 14:00 90 106/59 12/20/18 12:00 99.2 90 21 106/59 (75) 97 12/20/18 12:00 2.0 28 12/20/18 12:00 Nasal Cannula 2.0 Nasal Cannula 2.0 12/20/18 11:51 77 20 98 Room Air 12/20/18 11:41 78 19 96 Room Air 12/20/18 08:31 85 142/75 12/20/18 08:00 98.2 85 21 142/75 (97) 93 12/20/18 08:00 83 12/20/18 08:00 2.0 28 12/20/18 08:00 Nasal Cannula 2.0 Nasal Cannula 2.0 12/20/18 07:20 73 22 98 Nasal Cannula 2.0 28 12/20/18 07:10 99 Nasal Cannula 2.0 28 12/20/18 07:10 72 22 96 Nasal Cannula 2.0 12/20/18 07:10 72 22 96 Nasal Cannula 2.0 28 12/20/18 05:32 77 132/72 12/20/18 04:00 97.5 77 20 132/72 (92) 98 12/20/18 04:00 Nasal Cannula 2.0 Nasal Cannula 2.0 12/20/18 04:00 2.0 12/20/18 03:56 77 12/20/18 03:11 77 20 98 Nasal Cannula 2.0 12/20/18 03:02 75 20 97 Nasal Cannula 2.0 12/20/18 00:00 97.5 81 19 122/73 (89) 98 12/20/18 00:00 Nasal Cannula 2.0 Nasal Cannula 2.0 12/19/18 23:30 75 22 97 Bi-pap 30 12/19/18 23:23 71 12/19/18 23:22 76 20 96 Bi-pap 30 12/19/18 23:17 76 20 96 Facial 30 12/19/18 21:34 75 127/78 12/19/18 20:00 98.7 73 24 127/60 (82) 99 12/19/18 20:00 Nasal Cannula 2.0 Nasal Cannula 2.0 12/19/18 20:00 2.0 12/19/18 20:00 74 12/19/18 19:41 74 20 99 Nasal Cannula 2.0 28 12/19/18 19:32 99 Nasal Cannula 2.0 28 12/19/18 19:32 73 20 99 Nasal Cannula 2.0 28 12/19/18 16:00 70 12/19/18 16:00 98.8 78 24 121/58 (79) 96 12/19/18 16:00 2.0 12/19/18 16:00 Nasal Cannula 2.0 Nasal Cannula 2.0 12/19/18 15:51 79 16 100 Nasal Cannula 2.0 28 12/19/18 15:45 76 16 94 Nasal Cannula 2.0 28 Intake and Output 12/19/18 12/20/18 18:59 06:59 Intake Total 890.0 ml 230.0 ml Output Total 1600 ml 700 ml Balance -710.0 ml -470.0 ml Intake Oral 240 ml 120 ml IV Total 650.0 ml 110.0 ml Output Urine Total 1400 ml 700 ml Stool Total 200 ml General Appearance: no acute distress Respiratory/Chest: lungs clear Cardiovascular: normal rate Microbiology Date/Time Source Procedure Growth Status 12/17/18 18:00 Sputum Induced Gram Stain - Final Complete 12/17/18 18:00 Sputum Induced Sputum Culture - Final NORMAL UPPER RESPIRATORY ALEXANDREA PRESENT Complete 12/17/18 18:55 Straight Cath Urine Culture - Final NO GROWTH AFTER 48 HOURS Complete Laboratory Tests 12/20/18 03:30: White Blood Count 15.2H, Red Blood Count 4.05L, Hemoglobin 11.3L, Hematocrit 37.8, Mean Corpuscular Volume 93, Mean Corpuscular Hemoglobin 27.8, Mean Corpuscular Hemoglobin Concent 29.8L, Red Cell Distribution Width 16.8H, Platelet Count 277, Mean Platelet Volume 5.4L, Neutrophils (%) (Auto) , Lymphocytes (%) (Auto) , Monocytes (%) (Auto) , Eosinophils (%) (Auto) , Basophils (%) (Auto) , Differential Total Cells Counted 100, Neutrophils % ( Manual) 92H, Lymphocytes % (Manual) 5L, Monocytes % (Manual) 3, Eosinophils % ( Manual) 0, Basophils % (Manual) 0, Band Neutrophils 0, Platelet Estimate Adequate, Platelet Morphology Normal, Hypochromasia 1+, Anisocytosis 1+, Sodium Level 143, Potassium Level 3.8, Chloride Level 106, Carbon Dioxide Level 29, Anion Gap 8, Blood Urea Nitrogen 25H, Creatinine 1.1, Estimat Glomerular Filtration Rate , Glucose Level 139H, Calcium Level 9.3 Current Medications Medications (Trade) Dose Ordered Sig/Kate Route PRN Reason Start Time Stop Time Status Last Admin Dose Admin Acetaminophen (Tylenol) 650 mg Q4H PRN ORAL Mild Pain (1-3)/fever 12/12/18 18:15 01/11/19 18:14 12/15/18 08:47 Acetaminophen (Tylenol) 650 mg Q4H PRN RECTAL Mild Pain (1-3)/FEVER 12/12/18 18:15 01/11/19 18:14 Albuterol/ Ipratropium (Albuterol/ Ipratropium) 3 ml Q4HRT HHN 12/18/18 03:00 12/23/18 02:59 12/20/18 11:40 Artificial Tears (Akwa-Tears) 1 drop BID BOTH EYES 12/13/18 09:00 01/12/19 08:59 12/20/18 08:32 Atorvastatin Calcium (Lipitor) 10 mg BEDTIME ORAL 12/12/18 21:00 01/11/19 20:59 12/19/18 21:34 Dextrose (Dextrose 50%) 25 ml Q30M PRN IV Hypoglycemia 12/12/18 18:15 01/11/19 18:14 Dextrose (Dextrose 50%) 50 ml Q30M PRN IV Hypoglycemia 12/12/18 18:15 01/11/19 18:14 Diltiazem HCl (Cardizem) 60 mg EVERY 8 HOURS ORAL 12/17/18 22:00 01/16/19 21:59 12/20/18 05:32 Docusate Sodium (Colace) 100 mg BID ORAL 12/13/18 09:00 01/12/19 08:59 12/20/18 08:31 Escitalopram Oxalate (Lexapro) 5 mg DAILY ORAL 12/13/18 09:00 01/12/19 08:59 12/20/18 08:31 Famotidine (Pepcid) 20 mg QHS ORAL 12/16/18 21:00 01/15/19 20:59 12/19/18 21:34 Fluticasone Propionate (Flonase) 1 spray TWICE A DAY NASAL 12/13/18 09:00 01/12/19 08:59 12/19/18 18:14 Furosemide (Lasix) 20 mg BID IV 12/19/18 18:00 01/18/19 17:59 12/20/18 08:32 Gabapentin (Neurontin) 300 mg QHS ORAL 12/12/18 21:00 01/11/19 20:59 12/19/18 21:34 Magnesium Hydroxide (Mom) 30 ml DAILY ORAL 12/13/18 09:00 01/12/19 08:59 12/20/18 08:32 Methylprednisolone Sodium Succinate (Solu-MEDROL) 20 mg DAILY IVP 12/20/18 09:00 01/19/19 08:59 12/20/18 08:32 Metoprolol Succinate (Toprol XL) 25 mg DAILY ORAL 12/13/18 09:00 01/12/19 08:59 12/20/18 08:31 Nitroglycerin (Ntg) 0.4 mg Q5MIN X 3 DOSES PRN SL Prn Chest Pain 12/12/18 18:45 01/11/19 18:44 Piperacillin Sod/ Tazobactam Sod 3.375 gm/Sodium Chloride 110 ml @ 27.5 mls/hr EVERY 8 HOURS IVPB 12/17/18 14:00 12/22/18 13:59 12/20/18 13:36 Potassium Chloride (K-Dur) 20 meq DAILY ORAL 12/17/18 09:00 01/16/19 08:59 12/20/18 08:32 Gio Feng MD Dec 20, 2018 15:39
--- NOTE | 2018-12-20 16:01 | NUR ---
NURSE NOTES: patient will be discharge back to [facility]. patient is stable. not in acute distress. patient is noted to be AOX4.VSS taken and recorded. media monitor removed and endorsed to MT in @E. IV line removed and bleeding was stopped. belongings checked and signed by the patient. all is accounted for. report given to Sammy of [facility]. warehouse order picker time @1600.awaiting warehouse order picker as of this time.
[2018-12-20] MEDS ORDERED: NS 275ml ONE (16:19)
--- NOTE | 2018-12-20 16:20 | NUR ---
NURSE NOTES: [facility]. Patient is stable.
--- NOTE | 2018-12-20 22:15 | Discharge Summary ---
DATE OF ADMISSION: 12/12/2018 DATE OF DISCHARGE: 12/20/2018 PERTINENT HISTORY: The patient is a 78-year-old lady with COPD, paroxysmal atrial fibrillation, CVA, CHF, osteoarthritis. She presents with severe anemia and GI bleeding. PERTINENT PHYSICAL FINDINGS ON ADMISSION: HEENT: Oral mucosa moist. NECK: No adenopathy. LUNGS: Clear. HEART: Regular rhythm. ABDOMEN: Soft and obese. No organomegaly or tenderness. EXTREMITIES: Show trace edema. Degenerative changes in the knees. NEUROLOGIC: There is some diminished right agent producer. COURSE IN THE HOSPITAL: The patient had hemoglobin of 5.9 on admission, was transfused, given antiulcer regimen, stopped her apixaban. She had mild elevation in troponin to 0.081 and 0.038, was seen by Dr. Moreno in cardiology consultation. She had high BNP and paroxysmal atrial fibrillation. She had hyperkalemia and acute kidney injury due to medications that were adjusted. The patient was seen in GI consultation by Dr. Perez and cardiology consultation by Dr. Moreno, and had an evaluation by Dr. Feng for pulmonary. The patient did have upper endoscopy, which showed some gastritis and colonoscopy which showed a small polyp that was biopsied, rare diverticular disease. Her GI bleeding stopped with stopping of the anticoagulants and supportive care. She did develop exacerbation of COPD with metabolic encephalopathy and CO2 retention, was placed on BiPAP, given steroids and pulmonary care, and this improved. On the day of discharge, her O2 saturation was normal on room air. Lungs were clear. Heart, regular rhythm with PACs. Abdomen soft, nontender. Extremities, no edema. She was discharged to the [facility] in stable condition. FINAL DIAGNOSES: 1. GI bleeding. 2. Severe anemia due to GI bleed. 3. Gastritis. 4. Colonic polyp. 5. Diverticular disease of the colon. 6. History of taking apixaban for atrial fibrillation, currently stopped. 7. Paroxysmal atrial fibrillation. 8. COPD with acute exacerbation. 9. Chronic diastolic CHF with exacerbation. 10. Metabolic encephalopathy due to CO2 retention. 11. History of old CVA. 12. History of osteoarthritis. DISCHARGE DISPOSITION: To the [facility]. DIET: No added-salt diet. MEDICATIONS: Per the discharge medication list. FOLLOWUP: Followup by Dr. Bowen in the facility. Pastor Bowen M.D. DR: Sg JOB#: [id number] CC:
--- NOTE | 2018-12-20 22:16 | General Progress Note ---
Assessment/Plan Assessment/Plan: Assessment - GI Bleed/anemia - negative EGD and colon - CHF - Arrhythmias - Syncope - Azotemia - resolved - Anemia - anemia - Leukocytosis - presumed due to steroids Recommendations - monitor labs - push po - d/c planning Colonoscopy: No blood seen, rare diverticulosis Will resume PO diet No further GI w/u planned at this time Subjective Allergies: Coded Allergies: No Known Allergies (Unverified , 06/05/14) Subjective above noted patient seen early am feels OK no abd pain procedure results d/w pt Objective Last 24 Hour Vital Signs Date Time Temp Pulse Resp B/P (MAP) Pulse Ox O2 Delivery O2 Flow Rate FiO2 12/20/18 14:56 Room Air 21 12/20/18 14:56 Room Air 21 12/20/18 14:00 90 106/59 12/20/18 12:00 99.2 90 21 106/59 (75) 97 12/20/18 12:00 2.0 28 12/20/18 12:00 Nasal Cannula 2.0 Nasal Cannula 2.0 12/20/18 12:00 90 12/20/18 11:51 77 20 98 Room Air 21 12/20/18 11:41 78 19 96 Room Air 12/20/18 08:31 85 142/75 12/20/18 08:00 98.2 85 21 142/75 (97) 93 12/20/18 08:00 83 12/20/18 08:00 2.0 12/20/18 08:00 Nasal Cannula 2.0 Nasal Cannula 2.0 12/20/18 07:20 73 22 98 Nasal Cannula 2.0 28 12/20/18 07:10 99 Nasal Cannula 2.0 28 12/20/18 07:10 72 22 96 Nasal Cannula 2.0 28 12/20/18 07:10 72 22 96 Nasal Cannula 2.0 28 12/20/18 05:32 77 132/72 12/20/18 04:00 97.5 77 20 132/72 (92) 98 12/20/18 04:00 Nasal Cannula 2.0 Nasal Cannula 2.0 12/20/18 04:00 2.0 12/20/18 03:56 77 12/20/18 03:11 77 20 98 Nasal Cannula 2.0 28 12/20/18 03:02 75 20 97 Nasal Cannula 2.0 28 12/20/18 00:00 97.5 81 19 122/73 (89) 98 12/20/18 00:00 Nasal Cannula 2.0 Nasal Cannula 2.0 12/19/18 23:30 75 22 97 Bi-pap 30 12/19/18 23:23 71 12/19/18 23:22 76 20 96 Bi-pap 30 12/19/18 23:17 76 20 96 Facial 30 Intake and Output 12/19/18 12/20/18 19:00 07:00 Intake Total 890.0 ml 230.0 ml Output Total 1600 ml 700 ml Balance -710.0 ml -470.0 ml Intake Oral 240 ml 120 ml IV Total 650.0 ml 110.0 ml Output Urine Total 1400 ml 700 ml Stool Total 200 ml Laboratory Tests 12/20/18 03:30: White Blood Count 15.2H, Red Blood Count 4.05L, Hemoglobin 11.3L, Hematocrit 37.8, Mean Corpuscular Volume 93, Mean Corpuscular Hemoglobin 27.8, Mean Corpuscular Hemoglobin Concent 29.8L, Red Cell Distribution Width 16.8H, Platelet Count 277, Mean Platelet Volume 5.4L, Neutrophils (%) (Auto) , Lymphocytes (%) (Auto) , Monocytes (%) (Auto) , Eosinophils (%) (Auto) , Basophils (%) (Auto) , Differential Total Cells Counted 100, Neutrophils % ( Manual) 92H, Lymphocytes % (Manual) 5L, Monocytes % (Manual) 3, Eosinophils % ( Manual) 0, Basophils % (Manual) 0, Band Neutrophils 0, Platelet Estimate Adequate, Platelet Morphology Normal, Hypochromasia 1+, Anisocytosis 1+, Sodium Level 143, Potassium Level 3.8, Chloride Level 106, Carbon Dioxide Level 29, Anion Gap 8, Blood Urea Nitrogen 25H, Creatinine 1.1, Estimat Glomerular Filtration Rate , Glucose Level 139H, Calcium Level 9.3 Height (Feet): 5 Height (Inches): 3.00 Weight (Pounds): 180 Objective WDWN AA woman NCAT supple CTA RR soft ND NT no edema non focal Mandy Perez MD Dec 20, 2018 22:16
--- NOTE | 2018-12-21 01:00 | Progress Note ---
DATE: 12/20/2018 CARDIOLOGY PROGRESS NOTE SUBJECTIVE: The patient has not had any new bleeding signs. Esophagogastroduodenoscopy and colonoscopy did not reveal any active bleeding source. OBJECTIVE: VITAL SIGNS: Blood pressure vitals 106/59, heart rate 90, and respirations 21. Monitor, sinus with paroxysms of atrial fibrillation. LUNGS: Clear. CARDIAC: Regular. Normal S1, S2. A 1/6 systolic apical murmur. ABDOMEN: Soft. EXTREMITIES: No edema. IMPRESSION: 1. Severe anemia status post transfusions. 2. Presumed gastrointestinal blood loss, now resolved. 3. Paroxysmal atrial fibrillation, rate controlled. 4. Hypertensive heart disease with controlled blood pressure. 5. Acute and chronic diastolic congestive heart failure clinically compensated. 6. Leukocytosis due to steroids. 7. Acute on chronic renal failure, now recovering. PLAN: 1. Outpatient followup. 2. Maintain diltiazem add beta-román at current dosing. 3. No diuretic therapy at this time. 4. Reassess resumption of cardioembolic prophylaxis with apixaban if no signs of bleeding and stable hemoglobin levels as an outpatient. Jan Moreno M.D. DR: MINA JOB#: [id number] CC:
--- NOTE | 2018-12-21 01:15 | Progress Note ---
DATE: 12/19/2018 CARDIOLOGY PROGRESS NOTE SUBJECTIVE: The patient was seen and evaluated. Case discussed with Dr. Perez. The patient is status post colonoscopy today without complications. Findings notable for gastritis and polyps with minimal diverticulosis. Monitored rhythm sinus with atrial ectopy. OBJECTIVE: VITAL SIGNS: Blood pressure 121/58, pulse 78, respiratory rate 24, afebrile. LUNGS: Clear. Jugular venous pressure is slightly elevated. CARDIAC: Regular rhythm and rate. Normal S1, S2. ABDOMEN: Soft. EXTREMITIES: No edema. LABORATORY DATA: White count 14, hemoglobin 10.5. Sodium 146, potassium 3.5, BUN 26, creatinine 1.3. IMPRESSION: 1. Paroxysmal atrial fibrillation. 2. GI bleeding. 3. Severe anemia. 4. Dehydration. 5. Hypernatremia. 6. Contraction alkalosis. 7. Acute on chronic diastolic congestive heart failure. 8. Moderate protein-calorie malnutrition. 9. Hypertensive cardiomyopathy. PLAN: 1. Monitor hemoglobin. 2. Titrate anti-failure regimen and antihypertensives. 3. Off anticoagulation due to bleeding risk. 4. Discontinue acetazolamide. 5. Maintain beta-román and diltiazem with titration. Jan Moreno M.D. : [place] JOB#: [id number] CC:
--- NOTE | 2018-12-21 14:46 | Cardiology Report ---
APPROVED REPORT EKG Measurement Heart [id number] Sinus rhythm with blocked premature atrial complexes T wave abnormality, consider anterior ischemia Abnormal ECG
== END 2018-12-20 16:20 | DRG 377 ==
LOC: EDBD 14:46 → EDBEDREQ 15:01 → EMR 15:22 → 2W 15:25 → EDBEDREQ 15:41 → EDBEDREQSVC 15:56 → EDBEDREQ 15:56
PROC: 0DB78ZX Excision of Stomach, Pylorus, Via Natural or Artificial Opening Endoscopic, Diagnostic (ICD-10-PCS; principal; 2018-12-13 14:08)
PROC: 0DBN8ZX Excision of Sigmoid Colon, Via Natural or Artificial Opening Endoscopic, Diagnostic (ICD-10-PCS; 2018-12-19)
DX: K92.2 Gastrointestinal hemorrhage, unspecified (principal); I50.33 Acute on chronic diastolic (congestive) heart failure; G93.41 Metabolic encephalopathy; J96.02 Acute respiratory failure with hypercapnia; D68.32 Hemorrhagic disorder due to extrinsic circulating anticoagulants; N17.9 Acute kidney failure, unspecified; D62 Acute posthemorrhagic anemia; J44.1 Chronic obstructive pulmonary disease with (acute) exacerbation; E87.0 Hyperosmolality and hypernatremia; I13.0 Hypertensive heart and chronic kidney disease with heart failure and stage 1 through stage 4 chronic kidney disease, or unspecified chronic kidney disease; E44.0 Moderate protein-calorie malnutrition; N18.9 Chronic kidney disease, unspecified; Z86.73 Personal history of transient ischemic attack (TIA), and cerebral infarction without residual deficits; R26.9 Unspecified abnormalities of gait and mobility; G89.4 Chronic pain syndrome; I25.2 Old myocardial infarction; G31.84 Mild cognitive impairment of uncertain or unknown etiology; E78.5 Hyperlipidemia, unspecified; E86.0 Dehydration; E87.5 Hyperkalemia; I25.10 Atherosclerotic heart disease of native coronary artery without angina pectoris; Z95.0 Presence of cardiac pacemaker; K29.70 Gastritis, unspecified, without bleeding; Z68.31 Body mass index [BMI] 31.0-31.9, adult; F03.90 Unspecified dementia, unspecified severity, without behavioral disturbance, psychotic disturbance, mood disturbance, and anxiety; K57.90 Diverticulosis of intestine, part unspecified, without perforation or abscess without bleeding; K63.5 Polyp of colon
CPT/HCPCS: 36415; 36600; 70450; 71045; 80048; 80053; 80162; 81001; 81003; 82550; 82553; 82803; 83605; 83735; 83880; 84484; 85007; 85025; 85610; 85730; 86850; 86900; 86901; 86920; 87040; 87070; 87081; 87086; 87205; 93005; 93306; 93970; 94003; 94150; 94640; 94660; 94664; 96360; 99291; J7620; J8499

== ENCOUNTER 2019-03-07 14:37 | Inpatient (IN) | payer MEDICARE ==
[~2019-03-07] VITALS: Ht 160 cm; Wt 72.3 kg
[~2019-03-07 14:37] MED LIST changes: +ACETAMINOPHEN500 M5 ORAL; +BENTYL PO; +FUROSEMIDE20 M1 ORAL; +HYDROCORTISONE28 G2 TP; +K-TAB ER20 MEQ ORAL; +LEXAPRO10 MG ORAL; +MILK OF MA400 MG/51 ORAL; +OMEPRAZOLE40 M1 ORAL; +PREDNISONE20 M1 PO
--- NOTE | 2019-03-07 15:10 | NUR ---
ED Nurse Note: Pt FABIO from [facility] due to hypotension, BP 81/41 at triage. HR also noticed to be in the 50-55. AOx3 (name/place/purpose). Pt is confused at times. IV 18G initiated on L forearm prior to arrival, 200cc NS given. Will cont to monitor.
--- NOTE | 2019-03-07 15:22 | NUR ---
ED Nurse Note: received pt from ricardo rn. pt FABIO from [facility] due to hypotension, BP 81/41 at triage. ao4. nad. current bp 100/41
[2019-03-07 15:25] VITALS: BP 100/41
--- NOTE | 2019-03-07 15:34 | Emergency Room Report ---
History of Present Illness General Chief Complaint: General Complaint Source: Medical Record Present Illness HPI 79-year-old female history of congestive heart failure, AK I, hyperlipidemia, atrial fibrillation history of dementia presents with hypertension just prior to arrival, unknown aggravating or alleviating factors, severity is moderate, constant, patient unable to give a proper history she states that she wants to go back home which is her [facility], she denies any complaints however history is limited secondary to possible dementia Allergies: Coded Allergies: No Known Allergies (Unverified , 06/05/14) Patient History Limited by: age, medical condition - Dementia Now: No Reviewed Nursing Documentation: PMH: Agreed; PSxH: Agreed Nursing Documentation-PMH Past Medical History: No History, Except For Hx Pacemaker: Yes Hx COPD: Yes Hx Cancer: No Hx Gastrointestinal Problems: Yes - GERD, GI hemorrhage Hx Neurological Problems: Yes - Rt. side Hemiplegia Hx Cerebrovascular Accident: Yes Hx Paralysis: Yes Hx Weakness: Yes Review of Systems All Other Systems: limited - Dementia Physical Exam Vital Signs Date Time Temp Pulse Resp B/P (MAP) Pulse Ox O2 Delivery O2 Flow Rate FiO2 03/07/19 14:34 99.1 45 20 81/41 (54) 97 Room Air Sp02 EP Interpretation: reviewed, normal General Appearance: well appearing, no apparent distress, alert Head: normocephalic, atraumatic Eyes: bilateral eye PERRL, bilateral eye EOMI ENT: uvula midline, moist mucus membranes Neck: supple, thyroid normal, supple/symm/no masses Respiratory: lungs clear, no respiratory distress, no retraction, no accessory muscle use Cardiovascular #1: normal peripheral pulses, regular rate, rhythm, no edema, no gallop, no murmur Gastrointestinal: non tender, soft, no guarding, no rebound Musculoskeletal: normal inspection Neurologic: alert, responsive Psychiatric: mood/affect normal Skin: no rash, warm/dry Medical Decision Making Diagnostic Impression: Primary Impression: Hypotension Qualified Codes: I95.2 - Hypotension due to drugs ER Course 79-year-old female history of CAD heart failure, presents with acute hypertensive event, seen in ED and at [facility], sepsis work-up conducted, no acute processes found, chest x-ray negative, troponin negative, urinalysis is negative, will admit patient to telemetry due to her CHF for continued monitoring. Patient given 1 L normal saline fluid bolus with improvement in her blood pressure. Patient admitted to Dr. Bowen Laboratory Tests Test 03/07/19 15:20 White Blood Count 12.5 K/UL (4.8-10.8) H Red Blood Count 3.39 M/UL (4.20-5.40) L Hemoglobin 10.1 G/DL (12.0-16.0) L Hematocrit 32.3 % (37.0-47.0) L Mean Corpuscular Volume 95 FL (80-99) Mean Corpuscular Hemoglobin 29.8 PG (27.0-31.0) Mean Corpuscular Hemoglobin Concent 31.3 G/DL (32.0-36.0) L Red Cell Distribution Width 18.6 % (11.6-14.8) H Platelet Count 340 K/UL (150-450) Mean Platelet Volume 4.7 FL (6.5-10.1) L Neutrophils (%) (Auto) 79.0 % (45.0-75.0) H Lymphocytes (%) (Auto) 14.6 % (20.0-45.0) L Monocytes (%) (Auto) 3.2 % (1.0-10.0) Eosinophils (%) (Auto) 2.3 % (0.0-3.0) Basophils (%) (Auto) 0.9 % (0.0-2.0) Prothrombin Time 9.6 SEC (9.30-11.50) Prothrombin Time INR 0.9 (0.9-1.1) PTT 25 SEC (23-33) Urine Color Pale yellow Urine Appearance Slightly cloudy Urine pH 5 (4.5-8.0) Urine Specific [place] 1.010 (1.005-1.035) Urine Protein 2+ (NEGATIVE) H Urine Glucose (UA) Negative (NEGATIVE) Urine Ketones Negative (NEGATIVE) Urine Blood 1+ (NEGATIVE) H Urine Nitrite Negative (NEGATIVE) Urine Bilirubin Negative (NEGATIVE) Urine Urobilinogen Normal MG/DL (0.0-1.0) Urine Leukocyte Esterase 1+ (NEGATIVE) H Urine RBC 2-4 /HPF (0 - 2) H Urine WBC 2-4 /HPF (0 - 2) Urine Squamous Epithelial Cells Few /LPF (NONE/OCC) Urine Amorphous Sediment Moderate /LPF (NONE) H Urine Bacteria Few /HPF (NONE) Sodium Level 138 MMOL/L (136-145) Potassium Level 5.6 MMOL/L (3.5-5.1) H Chloride Level 99 MMOL/L (98-107) Carbon Dioxide Level 37 MMOL/L (21-32) H Anion Gap 2 mmol/L (5-15) L Blood Urea Nitrogen 19 mg/dL (7-18) H Creatinine 1.1 MG/DL (0.55-1.30) Estimate Glomerular Filtration Rate mL/min (>60) Glucose Level 128 MG/DL (74-106) H Lactic Acid Level 1.40 mmol/L (0.4-2.0) Calcium Level 9.0 MG/DL (8.5-10.1) Phosphorus Level 3.9 MG/DL (2.5-4.9) Magnesium Level 2.2 MG/DL (1.8-2.4) Total Bilirubin 0.3 MG/DL (0.2-1.0) Aspartate Amino Transferase (AST) 18 U/L (15-37) Alanine Aminotransferase (ALT) 10 U/L (12-78) L Alkaline Phosphatase 157 U/L (46-116) H Total Creatine Kinase 129 U/L (26-308) Creatine Kinase MB 0.7 NG/ML (0.0-3.6) Creatine Kinase MB Relative Index 0.5 Troponin I 0.000 ng/mL (0.000-0.056) Pro-B-Type Natriuretic Peptide 1440 pg/mL (0-125) H Total Protein 7.7 G/DL (6.4-8.2) Albumin 3.0 G/DL (3.4-5.0) L Globulin 4.7 g/dL Albumin/Globulin Ratio 0.6 (1.0-2.7) L Lipase 68 U/L (73-393) L EKG Diagnostic Results EKG Time: 15:01 EP Interpretation: Sinus Bradycardia, rate 47 qtc 394, qtc Rate: bradycardiac Rhythm: other - sinus ST Segments: no acute changes Rhythm Strip Diag. Results Rhythm Strip Time: 16:27 EP Interpretation: yes Rate: 70 Rhythm: NSR, no PVC's, no ectopy Chest X-Ray Diagnostic Results Chest X-Ray Diagnostic Results : Chest X-Ray Ordered: Yes # of Views/Limited/Complete: 1 View Indication: Other - hypotension EP Interpretation: Yes Interpretation: no consolidation, no effusion, no pneumothorax Impression: No acute disease Electronically Signed by: Dixon Chisholm MD Last Vital Signs Date Time Temp Pulse Resp B/P (MAP) Pulse Ox O2 Delivery O2 Flow Rate FiO2 03/07/19 15:25 99.1 51 20 100/41 100 Room Air Disposition: ADMITTED INPATIENT Condition: Stable Referrals: Pastor Bowen MD (PCP) Dixon Chisholm MD Mar 07, 2019 15:34
[2019-03-07 15:38] LABS: BASOPHILS % (AUTO) 0.9 % (0.0-2.0); EOSINOPHILS % (AUTO) 2.3 % (0.0-3.0); HEMATOCRIT 32.3 % (37.0-47.0); HEMOGLOBIN 10.1 G/DL (12.0-16.0); LYMPHOCYTES % (AUTO) 14.6 % (20.0-45.0); MEAN CORPUSCULAR VOLUME 95 FL (80-99); MONOCYTES % (AUTO) 3.2 % (1.0-10.0); PLATELET COUNT 340 K/UL (150-450); RED BLOOD COUNT 3.39 M/UL (4.20-5.40); RED CELL DISTRIBUTION WIDTH 18.6 % (11.6-14.8); WHITE BLOOD COUNT 12.5 K/UL (4.8-10.8)
[2019-03-07 15:43] LABS: INR 0.9 (0.9-1.1)
--- NOTE | 2019-03-07 15:47 | NUR ---
ED Nurse Note: urine vre cre mrsa collected; sent down to lab.
[2019-03-07 15:49] LABS: ANION GAP 2 mmol/L (5-15); BLOOD UREA NITROGEN 19 mg/dL (7-18); CARBON DIOXIDE 37 MMOL/L (21-32); CHLORIDE 99 MMOL/L (98-107); CREATININE 1.1 MG/DL (0.55-1.30); POTASSIUM 5.6 MMOL/L (3.5-5.1); SODIUM 138 MMOL/L (136-145)
--- NOTE | 2019-03-07 15:57 | Diagnostic Imaging Report ---
Indication: Altered mental status Technique: One view of the chest Comparison: 12/17/2018 Findings: Scarring is demonstrated in the right perihilar region. Lungs pleural spaces are otherwise clear. The heart is borderline enlarged. The aorta is tortuous and calcified. There are degenerative changes of both shoulders Impression: No acute process Borderline cardiomegaly
[2019-03-07 16:03] LABS: ALANINE AMINOTRANSFERASE 10 U/L (12-78); ALBUMIN/GLOBULIN RATIO 0.6 (1.0-2.7); ALKALINE PHOSPHATASE 157 U/L (46-116); ASPARTATE AMINO TRANSFERASE 18 U/L (15-37); BILIRUBIN,TOTAL 0.3 MG/DL (0.2-1.0); CKMB 0.7 NG/ML (0.0-3.6); CREATINE KINASE 129 U/L (26-308); PHOSPHORUS 3.9 MG/DL (2.5-4.9)
[2019-03-07 16:16] LABS: APPEARANCE,URINE SLIGHTLY CLOUDY; BILIRUBIN, URINE NEGATIVE (NEGATIVE); COLOR,URINE PALE YELLOW; GLUCOSE, URINE (UA) NEGATIVE (NEGATIVE); KETONES,URINE NEGATIVE (NEGATIVE); LEUKOCYTE ESTERASE ,URINE 1+ (NEGATIVE); NITRITE,URINE NEGATIVE (NEGATIVE); PH,URINE 5 (4.5-8.0); PROTEIN,URINE 2+ (NEGATIVE); UROBILINOGEN,URINE NORMAL MG/DL (0.0-1.0)
[2019-03-07 16:38] VITALS: BP 135/57
--- NOTE | 2019-03-07 16:51 | NUR ---
ED Nurse Note: BELONGINGS LIST COMPLETED WITH PATIENT AND RN ; UNABLE TO SIGN.
--- NOTE | 2019-03-07 17:15 | NUR ---
ED Nurse Note: CALLED TO GIVE REPORT. PER GAS FLOW REGULATOR, BED NOT READY IN TELE. RECEIVING RNGRICEL, WILL CALL WHEN READY.
--- NOTE | 2019-03-07 17:47 | NUR ---
ED Nurse Note: REPORT GIVEN TO STEVEN MONSALVE. PATIENT TO BE ADMITTED TO TELE UNDER MD MALIA
--- NOTE | 2019-03-07 18:00 | NUR ---
TRANSFER TO FLOOR: Patient transferred to TELE as ordered, per MD MALIA. Report given to STEVEN MONSALVE. BELONGINGS LIST COMPLETED WITH RECEIVING RN.
[2019-03-07 18:30] VITALS: BP 117/65
[2019-03-07] MEDS ORDERED: Nitroglycerin Subl 0.4mg tab SL PRN (18:30)
[2019-03-07] MEDS ORDERED: Miralax 17gm pkt ORAL PRN ×2 (18:30)
[2019-03-07] MEDS: Albuterol ud Inhalation HHN SCH ×2 (19:55→22:52)
--- NOTE | 2019-03-07 20:15 | Consultation ---
DATE OF CONSULTATION: 03/07/2019 CARDIOLOGY CONSULTATION CONSULTING PHYSICIAN: Jan Moreno M.D. REQUESTING PHYSICIAN: Pastor Bowen M.D. REASON FOR CONSULTATION: Hypotension and bradycardia. HISTORY OF PRESENT ILLNESS: This is an 79-year-old female with advanced cardiopulmonary disease. She resides at a correction facility. . . She is on a multidrug regimen of cardiopulmonary drugs for her ischemic and hypertensive cardiomyopathy and history of atrial fibrillation. She was recently started on losartan for additional blood pressure control in the setting of diabetes mellitus. Today she developed hypotension but also had bradycardia. The patient has had had atrial fibrillation in the past as I have confirmed from review of my prior records. We have had difficulty in the past controlling heart rate without precipitating bradycardia in sinus rhythm. At this time, the patient denies any distress. 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 ALLERGIES: None. MEDICATIONS: Reviewed and reconciled. SOCIAL HISTORY: Prior smoker. No alcohol or substance abuse. REVIEW OF SYSTEMS: Not obtainable reliably from the patient. I have reviewed prior hospitalizations here as well as my notes from prior care. PHYSICAL EXAMINATION: VITAL SIGNS: Temperature 99.1, blood pressure 81/41 on arrival with heart rate 45 and respiratory rate 20. Monitored rhythm, sinus bradycardia. Presently following fluid challenge, blood pressure is 135/57, heart rate 72, respiratory rate 20, and temperature remains 99.1. HEENT: Normocephalic and atraumatic. Conjunctivae pink. Oropharynx clear. NECK: Supple. Jugular venous pressure normal. No carotid bruit. LUNGS: Reveal diminished breath sounds with no wheezing. CARDIAC: Reveals regular rhythm. Slow rate. Normal S1, S2 with a fourth heart sound. ABDOMEN: Soft, nontender with no guarding or rebound. No pulsatile masses. EXTREMITIES: No clubbing, cyanosis, or edema. NEUROLOGIC: Reveals mild right-sided weakness. She is appropriately responsive and verbal. LABORATORY AND DIAGNOSTIC DATA: White count 12.5, hemoglobin 10.1. Urinalysis with 2 to 4 white cells. Sodium is 138, potassium 5.6, bicarb 37, BUN 19 creatinine 1.1, glucose 128. Lactic acid normal. Troponin 0. Natriuretic peptide 1440. Albumin 3. EKG sinus bradycardia with nonspecific ST change. IMPRESSION: 1. Hypotension due to cardiac medications. 2. Sinus node disease with bradycardia. 3. Paroxysmal atrial fibrillation, now in sinus rhythm. 4. Hyperkalemia. 5. Prerenal azotemia in the setting of chronic kidney disease. 6. Contraction alkalosis. 7. Mild protein-calorie malnutrition. 8. Ischemic cardiomyopathy. 9. Stable angina, class 1. 10. Acute on chronic diastolic congestive heart failure presently clinically compensated. 11. Insulin-requiring diabetes with multiple complications. PLAN: 1. Cardiac monitoring. 2. Avoid losartan. 3. Hold all antihypertensives other than beta-román at this time with hold parameters for low rate. 4. Additional volume support by IV route with caution and close monitoring of clinical parameters. 5. DVT and stress ulcer prophylaxis. 6. Nasal oxygen. 7. Trend natriuretic peptide assay. 8. Presently no indication for pacemaker. 9. Continue monitoring in view of high potential for atrial fibrillation. Jan Moreno M.D. DR: Carlos JOB#: [id number] CC:
--- NOTE | 2019-03-07 20:30 | History and Physical Report ---
DATE OF ADMISSION: 03/07/2019 CHIEF COMPLAINT/REASON FOR HOSPITALIZATION: The patient is admitted for bradycardia and hypotension. HISTORY OF PRESENT ILLNESS: The patient is an 79-year-old lady, well known to me, resident of an [facility] with history of CHF and COPD. I saw her on 03/06/2019 for a routine monthly visit and she was in stable condition. In view of her chronic congestive heart failure, I started her on a low dose of losartan. The staff was concerned that she desaturates to about 88% and a chest x-ray was done, which showed a questionable infiltrate and Augmentin was ordered. However, today she apparently dropped her blood pressure to the 80s and became bradycardic and then sent by the nursing staff to the emergency room. There was no loss of consciousness and she denies dizziness, palpitation, or worsening shortness of breath. ALLERGIES: None known. SURGICAL HISTORY: Carotid endarterectomy and foot surgery. HABITS: She was a smoker most of her adult life, quit a few years ago. SOCIAL HISTORY: She lives in an [facility] and Code Status is Full Code. She has family nearby. MEDICATIONS: At the [facility] include albuterol inhalation every 4 hours while awake, Tylenol 1000 mg every 8 hours, metoprolol 25 mg once a day, milk of magnesia p.r.n., MiraLAX p.r.n., omeprazole 40 mg daily, potassium 20 mEq daily, Pro-Stat 30 mL two times a day, QVAR two puffs every 12 hours, senna one tablet daily, Ventolin inhaler p.r.n., and in the past she was anticoagulated with Eliquis, but this was discontinued and she was started on losartan yesterday I believe the dose was 25 mg daily. SYSTEM REVIEW: HEAD, EYES, EARS, NOSE, AND THROAT: She has mild hearing impairment. Vision is good. ENDOCRINE: No known diabetes or thyroid disease. However, when she received steroids in the past for COPD exacerbation, there is mild glucose intolerance. PULMONARY: History of COPD and she has had severe bronchospasm, hypercarbia, and hypoxemia in the past. CARDIAC: History of hypertension, prior GA, paroxysmal atrial fibrillation, congestive heart failure, and chronic leg edema. GASTROINTESTINAL: She has had vague abdominal discomfort in the past and was treated for gastritis. GENITOURINARY: She is incontinent. NEUROLOGIC: She has CVA in the past with cognitive impairment. Mild right-sided weakness. Although she had a GI bleed and was hospitalized in this hospital and had endoscopic evaluation in November 2018. PHYSICAL EXAMINATION: GENERAL: The patient is alert lady, lying in bed, in no acute distress. After initial treatment in the emergency room, temperature is 99.1, pulse 72, respirations 20, and blood pressure 135/57. HEAD EYES, EARS, NOSE, AND THROAT: Sclerae are nonicteric. Ocular motion intact in all directions. Oral mucosa moist. NECK: No adenopathy or thyroid enlargement. LUNGS: Clear to my exam. HEART: Rhythm is regular with an apical S4. I hear no murmur. ABDOMEN: Soft without organomegaly. EXTREMITIES: Show trace edema. There is moderate degenerative changes in the knees and hands. NEUROLOGIC: She is alert and responsive. She has poor memory. Ocular motion intact in all directions. There is a faint right-sided weakness. Right arm slightly weaker than the left. LABORATORY AND DIAGNOSTIC DATA: Pertinent labs show white count of 12.5 and hemoglobin of 10.1. Sodium 138, potassium 5.6, BUN 19, creatinine is 1.1, CO2 is 37, glucose 128. Lactic acid 1.4. Troponin 0. Albumin 3.0. Urinalysis 2 to 4 white cells per high-powered field. Chest x-ray showed some scarring in the right lung. No acute process according to the radiologist. IMPRESSION: 1. Episode of hypotension likely due to medications ARB and underlying cardiomyopathy. 2. 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 3. History of prior CVA. 4. COPD. 5. Questionable infiltrate from chest x-ray done in the [facility] this week, but repeat x-ray here shows scarring, which was more likely the case. PLAN: We will observe the patient off of ARB and GEOFFREY inhibitors. Note that the med list that I dictated did not include her Lasix perhaps on other page and she has been on Lasix have to recheck and she is no longer hypotensive or bradycardic and we can observe the patient closely. We will get appropriate Cardiology evaluation and continue nebulizer treatments and will give her empiric antibiotics for questionable bronchitis. Pastor Bowen M.D. DR: MINA JOB#: [id number] CC:
--- NOTE | 2019-03-07 20:31 | NUR ---
NURSE NOTES: Mrs Kessler arrived from ER at 6pm. Dr moreno and Dr bowen at bedside. Son, Kaiser, also at bedside. Patient appeared to be breathing easily on 2 L NC--goal for O2 sat 92% per Dr Moreno. No sign of cardiac or respiratory distress. Patient ate dinner and engaged in pleasant conversation --aox4. VSS and tele showing NSR. Notified dr Bowen of elevated temp--ordered ua adn culture and tylenol. Handed off to jaren Palencia RN. Bed in lowest, locked position and no co pain with call gonzalez in reach. Patient stated "I don't know why they had to bring me here--I'm feeling much better."
--- NOTE | 2019-03-07 20:35 | NUR ---
NURSE NOTES: Pt received from STEVEN Avila alert and oriented x3 with no acute s/s of distress noted. On 2L NC, no s/s of resp distress. IV site asymptomatic and patent on L ac 18g, saline lock. Bed in lowest position, call light and belongings within reach.
[2019-03-07] MEDS: Artificial Tears 1.4% Op Soln BOTH EYES SCH (22:20)
[2019-03-07] MEDS: Heparin 5000 units/ml inj SUBQ SCH (22:29)
[2019-03-08] VITALS: BP_SYST 124; BP_SYST 135; BP_DIAS 70
[2019-03-08] MEDS: Albuterol ud Inhalation HHN SCH ×6 (02:26→23:04)
--- NOTE | 2019-03-08 02:45 | NUR ---
NURSE NOTES: Pt consistently in and out of A fib (HR 80-105), left message to Dr. Moreno, and endorsed Potassium of 5.6. Currently awaiting call back for further orders.
[2019-03-08 04:00] VITALS: BP 121/73
[2019-03-08 06:37] LABS: APPEARANCE,URINE CLEAR; BILIRUBIN, URINE NEGATIVE (NEGATIVE); COLOR,URINE PALE YELLOW; GLUCOSE, URINE (UA) NEGATIVE (NEGATIVE); KETONES,URINE NEGATIVE (NEGATIVE); LEUKOCYTE ESTERASE ,URINE 1+ (NEGATIVE); NITRITE,URINE NEGATIVE (NEGATIVE); PH,URINE 7 (4.5-8.0); PROTEIN,URINE 1+ (NEGATIVE); UROBILINOGEN,URINE NORMAL MG/DL (0.0-1.0)
[2019-03-08 06:42] LABS: BASOPHILS % (AUTO) 0.8 % (0.0-2.0); EOSINOPHILS % (AUTO) 1.9 % (0.0-3.0); HEMATOCRIT 36.8 % (37.0-47.0); HEMOGLOBIN 10.6 G/DL (12.0-16.0); LYMPHOCYTES % (AUTO) 14.5 % (20.0-45.0); MEAN CORPUSCULAR VOLUME 102 FL (80-99); MONOCYTES % (AUTO) 6.9 % (1.0-10.0); NEUTROPHILS % (AUTO) 75.9 % (45.0-75.0); PLATELET COUNT 346 K/UL (150-450); RED CELL DISTRIBUTION WIDTH 20.2 % (11.6-14.8); WHITE BLOOD COUNT 12.5 K/UL (4.8-10.8)
[2019-03-08 07:10] LABS: % IRON SATURATION 27 % (15-50); IRON 79 ug/dL (50-175); TOTAL IRON BINDING CAPACITY 298 ug/dL (250-450)
--- NOTE | 2019-03-08 07:15 | NUR ---
HAND-OFF: Report given to STEVEN Avila. No acute s/s of distress noted, plan of care endorsed.
[2019-03-08 07:25] LABS: ANION GAP 0 mmol/L (5-15); BLOOD UREA NITROGEN 15 mg/dL (7-18); CALCIUM 9.2 MG/DL (8.5-10.1); CARBON DIOXIDE 39 MMOL/L (21-32); CHLORIDE 101 MMOL/L (98-107); CREATININE 0.8 MG/DL (0.55-1.30); FERRITIN 25 NG/ML (8-388); POTASSIUM 4.3 MMOL/L (3.5-5.1); SODIUM 140 MMOL/L (136-145)
[2019-03-08 08:00] VITALS: BP 127/70
[2019-03-08] MEDS ORDERED: Metoprolol Succinate XL 25mg tab ORAL SCH (09:00)
[2019-03-08] MEDS ORDERED: Furosemide 40mg tab ORAL SCH (09:00)
[2019-03-08] MEDS: Heparin 5000 units/ml inj SUBQ SCH ×2 (09:32→21:17)
[2019-03-08] MEDS: Aspirin EC 81mg tab ORAL SCH (09:33)
[2019-03-08] MEDS: Docusate 100mg cap ORAL SCH ×2 (09:33→16:39)
[2019-03-08] MEDS: Milk of Magnesia 30ml Ud ORAL SCH (09:34)
[2019-03-08] MEDS: Artificial Tears 1.4% Op Soln BOTH EYES SCH ×4 (09:43→21:15)
[2019-03-08 11:51] VITALS: BP 127/77
--- NOTE | 2019-03-08 14:55 | NUR ---
CASE MANAGEMENT:REVIEW 79YR OLD FEMALE BIBA FROM [facility] CC: BP~81/41 SI: HYPOTENSION 99.1 45 20 81/41 97% ON RA WBC+12.5 IS: 1L NS BOLUS X1 : TO TELEMETRY
[2019-03-08 16:00] VITALS: BP 128/69
--- NOTE | 2019-03-08 16:12 | NUR ---
P.T Note: P.T evaluation completed and treatment initiated. Please refer to P.T evaluation for current functional status. Pt is alert, O x 4 and cooperative. Pt presented generalized weakness affecting her balance and functional mobility independence. Skilled P.T service is warranted to improve her strength and balance to increase her mobility independence and safety. Recommend return to SNF with continued rehab for strengthening to maximize mobility independence and safety.
[2019-03-08] MEDS: Acetaminophen 500mg (ES) tab ORAL PRN (16:39)
--- NOTE | 2019-03-08 16:39 | General Progress Note ---
Assessment/Plan Problem List: (1) COPD (chronic obstructive pulmonary disease) ICD Codes: J44.9 - Chronic obstructive pulmonary disease, unspecified SNOMED: 14393831 (2) Hyperkalemia ICD Codes: E87.5 - Hyperkalemia SNOMED: 07401094 (3) CHF (congestive heart failure) ICD Codes: I50.9 - Heart failure, unspecified SNOMED: 77596591 (4) Hypotension ICD Codes: I95.9 - Hypotension, unspecified SNOMED: 77737246 (5) Paroxysmal A-fib ICD Codes: I48.0 - Paroxysmal atrial fibrillation SNOMED: 718342935 (6) Hypotension ICD Codes: I95.9 - Hypotension, unspecified SNOMED: 61588572 Qualifiers: Qualified Codes: I95.2 - Hypotension due to drugs Assessment/Plan: no bradycardia today but back in afib, prior GI bleed not on anticoag, copd, bronchitis continue tele and possible adjustment antiarrythmia rx per dr zelaya Subjective Constitutional: Reports: weakness HEENT: Reports: no symptoms Cardiovascular: Reports: irregular heart rate Respiratory: Reports: cough Gastrointestinal/Abdominal: Reports: no symptoms Genitourinary: Reports: incontinence Neurologic/Psychiatric: Reports: pre-existing deficit Endocrine: Reports: no symptoms Hematologic/Lymphatic: Reports: no symptoms Allergies: Coded Allergies: No Known Allergies (Unverified , 06/05/14) Objective Last 24 Hour Vital Signs Date Time Temp Pulse Resp B/P (MAP) Pulse Ox O2 Delivery O2 Flow Rate FiO2 03/08/19 15:25 87 18 95 Nasal Cannula 2.0 28 03/08/19 14:08 Nasal Cannula 03/08/19 14:08 Nasal Cannula 03/08/19 12:00 95 03/08/19 11:51 98.3 107 18 127/77 (94) 97 107 03/08/19 11:50 1.0 03/08/19 09:33 96 127/70 03/08/19 09:00 Nasal Cannula 1.0 03/08/19 09:00 Nasal Cannula 1.0 03/08/19 08:00 2.0 03/08/19 08:00 98.1 96 18 127/70 (89) 99 96 03/08/19 08:00 91 03/08/19 07:00 Nasal Cannula 2.0 28 03/08/19 07:00 Nasal Cannula 2.0 28 8/21/19 07:00 Nasal Cannula 2.0 28 03/08/19 04:00 86 03/08/19 04:00 98.4 105 18 121/73 (89) 98 98 03/08/19 04:00 2.0 03/08/19 02:27 Nasal Cannula 03/08/19 02:27 Nasal Cannula 03/08/19 00:00 2.0 03/08/19 00:00 98.1 99 18 124/70 (88) 96 99 03/08/19 00:00 107 03/08/19 00:00 99.0 100 18 135/70 (91) 96 100 03/07/19 22:52 Nasal Cannula 2.0 28 03/07/19 21:00 2.0 03/07/19 20:03 82 16 98 Nasal Cannula 2.0 28 03/07/19 20:00 81 03/07/19 19:55 85 20 94 Nasal Cannula 2.0 28 03/07/19 19:55 85 20 94 Nasal Cannula 2.0 28 03/07/19 19:50 Nasal Cannula 2.0 03/07/19 18:30 100.4 76 18 117/65 (82) 03/07/19 18:00 99.1 72 20 135/57 98 Nasal Cannula 3.0 03/07/19 16:38 99.1 72 20 135/57 98 Nasal Cannula 3.0 Intake and Output 03/07/19 03/08/19 19:00 07:00 Intake Total 200 ml Balance 200 ml Intake Oral 200 ml # Voids 1 4 # Bowel Movements 1 Laboratory Tests 03/08/19 04:09: Urine Color Pale yellow, Urine Appearance Clear, Urine pH 7, Urine Specific [place] 1.005, Urine Protein 1+H, Urine Glucose (UA) Negative, Urine Ketones Negative, Urine Blood 2+H, Urine Nitrite Negative, Urine Bilirubin Negative, Urine Urobilinogen Normal, Urine Leukocyte Esterase 1+H, Urine RBC 2-4H, Urine WBC 0-2, Urine Squamous Epithelial Cells Occasional, Urine Bacteria Occasional 03/08/19 05:42: White Blood Count 12.5H, Red Blood Count 3.60L, Hemoglobin 10.6L, Hematocrit 36.8L, Mean Corpuscular Volume 102H, Mean Corpuscular Hemoglobin 29.4, Mean Corpuscular Hemoglobin Concent 28.8L, Red Cell Distribution Width 20.2H, Platelet Count 346, Mean Platelet Volume 4.9L, Neutrophils (%) (Auto) 75.9H, Lymphocytes (%) (Auto) 14.5L, Monocytes (%) (Auto) 6.9, Eosinophils (%) (Auto) 1.9, Basophils (%) (Auto) 0.8, Sodium Level 140, Potassium Level 4.3, Chloride Level 101, Carbon Dioxide Level 39H, Anion Gap 0L, Blood Urea Nitrogen 15, Creatinine 0.8, Estimat Glomerular Filtration Rate , Glucose Level 91, Calcium Level 9.2, Iron Level 79, Total Iron Binding Capacity 298, Percent Iron Saturation 27, Unsaturated Iron Binding 219, Ferritin 25, Troponin I 0.012, Thyroid Stimulating Hormone (TSH) 0.310L Height (Feet): 5 Height (Inches): 3.00 Weight (Pounds): 159 General Appearance: no apparent distress, alert EENT: normal ENT inspection Neck: normal alignment Cardiovascular: regularly irregular Respiratory/Chest: lungs clear Abdomen: non tender, soft Extremities: other - trace edema, djd knees and hands Neurologic: motor weakness, disoriented Pastor Bowen MD Mar 08, 2019 16:38
[2019-03-08] MEDS: Metoprolol Succinate XL 25mg tab ORAL SCH (17:58)
[2019-03-08] MEDS ORDERED: SENNOSIDES8.6 MG ORAL (19:35)
[2019-03-08] MEDS ORDERED: AUGMENTIN 500-1 EACH ORAL (19:35)
[2019-03-08] MEDS ORDERED: LOSARTAN POTASS25 MG ORAL (19:35)
[2019-03-08] MEDS ORDERED: QVAR7.3 GM INH (19:35)
[2019-03-08] MEDS ORDERED: PRO-STAT LIQUID30 ML ORAL (19:35)
[2019-03-08] MEDS ORDERED: VENTOLIN HFA18 GM INH (19:35)
--- NOTE | 2019-03-08 19:35 | NUR ---
NURSE NOTES: Mrs Kessler had some co pain today --headache relieved by tylenol per SEP. Dr Bowen at bedside requested to have med record from [facility] faxed and left in front of chart--done today. Patient oob with max assist to chair today in the afternoon. Purewick cont'd with clear yellow output. Bm this morning, moderate, soft brown. Afib on tele from this morning with HR in 90s for day shift-- converted to NSR with HR in 70s at 730pm per tele monitor. Tolerated 50% of meals and was pleasnt and calm with aox4 during day shift. Bed alarm on for safety with lowest locked position and call gonzalez in reach.
[2019-03-08 20:00] VITALS: BP 105/61
--- NOTE | 2019-03-08 20:17 | NUR ---
NURSE NOTES: recvd pt. Pt is AOX4, and lying in bed comfortably, on NC @1L with no sign of sob or resp distress. Bed in lowest position, call light and belongings within reach.
[2019-03-09] VITALS: BP 109/66
--- NOTE | 2019-03-09 00:45 | Progress Note ---
DATE: 03/08/2019 CARDIOLOGY PROGRESS NOTE SUBJECTIVE: The patient has less shortness of breath. She remains on cardiac monitoring with atrial fibrillation, now noted rates in the 90s. She has no chest pain. OBJECTIVE: VITAL SIGNS: Blood pressure 105/61, pulse 80, and respirations 18. LUNGS: Clear with diminished breath sounds. No wheezing. HEART: Irregularly irregular rhythm. Normal S1, S2 with a 1/6 systolic apical murmur. ABDOMEN: Soft. EXTREMITIES: With trace edema. LABORATORY DATA: White count 12.5, hemoglobin 10.6. Potassium 4.3, BUN 15, creatinine 0.8. Troponin is 0.012. IMPRESSION: 1. Paroxysmal atrial fibrillation. 2. Sinus node disease. 3. Ischemic cardiomyopathy. 4. Chronic obstructive pulmonary disease exacerbation. 5. Hypotension due to medications, now recovering. 6. Hyperkalemia, resolved. 7. Acute on chronic diastolic congestive heart failure. PLAN: 1. Advance beta-román. 2. Continue cautious hydration. 3. Respiratory management. 4. Monitor volume status and cardiorenal parameters closely. 5. Due to history of GI bleeding, anticoagulation not recommended at this time. Jan Moreno M.D. DR: BRENT JOB#: [id number] CC:
[2019-03-09] MEDS: Albuterol ud Inhalation HHN SCH ×4 (02:42→14:35)
[2019-03-09 04:00] VITALS: BP 119/77
[2019-03-09 07:32] LABS: BASOPHILS % (AUTO) 1.2 % (0.0-2.0); EOSINOPHILS % (AUTO) 2.4 % (0.0-3.0); HEMATOCRIT 36.4 % (37.0-47.0); HEMOGLOBIN 10.4 G/DL (12.0-16.0); LYMPHOCYTES % (AUTO) 15.3 % (20.0-45.0); MEAN CORPUSCULAR VOLUME 102 FL (80-99); MONOCYTES % (AUTO) 8.4 % (1.0-10.0); NEUTROPHILS % (AUTO) 72.7 % (45.0-75.0); PLATELET COUNT 346 K/UL (150-450); RED BLOOD COUNT 3.55 M/UL (4.20-5.40); RED CELL DISTRIBUTION WIDTH 20.4 % (11.6-14.8); WHITE BLOOD COUNT 11.1 K/UL (4.8-10.8)
[2019-03-09 07:49] LABS: ANION GAP 1 mmol/L (5-15); BLOOD UREA NITROGEN 12 mg/dL (7-18); CALCIUM 9.1 MG/DL (8.5-10.1); CARBON DIOXIDE 38 MMOL/L (21-32); CHLORIDE 101 MMOL/L (98-107); CREATININE 0.8 MG/DL (0.55-1.30); SODIUM 140 MMOL/L (136-145)
[2019-03-09 08:51] VITALS: BP 98/57
[2019-03-09] MEDS: Aspirin EC 81mg tab ORAL SCH (08:58)
[2019-03-09] MEDS: Metoprolol Succinate XL 25mg tab ORAL SCH ×2 (08:59→17:13)
[2019-03-09] MEDS: Furosemide 40mg tab ORAL SCH (08:59)
[2019-03-09] MEDS: Heparin 5000 units/ml inj SUBQ SCH ×2 (09:00→21:05)
[2019-03-09] MEDS: Milk of Magnesia 30ml Ud ORAL SCH (09:00)
[2019-03-09] MEDS: Docusate 100mg cap ORAL SCH ×3 (09:00→17:20)
[2019-03-09] MEDS: Artificial Tears 1.4% Op Soln BOTH EYES SCH ×5 (09:10→21:04)
--- NOTE | 2019-03-09 11:54 | General Progress Note ---
Assessment/Plan Problem List: (1) COPD (chronic obstructive pulmonary disease) ICD Codes: J44.9 - Chronic obstructive pulmonary disease, unspecified SNOMED: 58914839 (2) Hyperkalemia ICD Codes: E87.5 - Hyperkalemia SNOMED: 17359842 (3) CHF (congestive heart failure) ICD Codes: I50.9 - Heart failure, unspecified SNOMED: 92019875 (4) Hypotension ICD Codes: I95.9 - Hypotension, unspecified SNOMED: 81826413 (5) Paroxysmal A-fib ICD Codes: I48.0 - Paroxysmal atrial fibrillation SNOMED: 341894230 (6) Hypotension ICD Codes: I95.9 - Hypotension, unspecified SNOMED: 16295763 Qualifiers: Qualified Codes: I95.2 - Hypotension due to drugs Assessment/Plan: no bradycardia today but back in afib 03/08 nsr 03/09 , prior GI bleed not on anticoag, copd, bronchitis continue tele and possible adjustment antiarrythmia rx per dr zelaya Subjective Constitutional: Reports: weakness HEENT: Reports: no symptoms Cardiovascular: Reports: no symptoms Respiratory: Reports: cough Gastrointestinal/Abdominal: Reports: no symptoms Genitourinary: Reports: incontinence Neurologic/Psychiatric: Reports: pre-existing deficit Endocrine: Reports: no symptoms Hematologic/Lymphatic: Reports: no symptoms Allergies: Coded Allergies: No Known Allergies (Unverified , 06/05/14) Objective Last 24 Hour Vital Signs Date Time Temp Pulse Resp B/P (MAP) Pulse Ox O2 Delivery O2 Flow Rate FiO2 03/09/19 10:22 Nasal Cannula 1.0 03/09/19 08:59 84 98/57 03/09/19 08:51 98.8 84 20 98/57 (71) 98 03/09/19 08:06 73 18 100 Nasal Cannula 2.0 03/09/19 07:56 73 18 100 Nasal Cannula 2.0 03/09/19 07:56 73 17 100 Nasal Cannula 2.0 03/09/19 04:00 97.7 83 18 119/77 (91) 97 80 03/09/19 04:00 85 03/09/19 02:43 Nasal Cannula 2.0 28 03/09/19 02:43 Nasal Cannula 2.0 03/09/19 00:00 77 03/09/19 00:00 97.7 84 18 109/66 (80) 97 80 03/08/19 23:14 79 16 98 Nasal Cannula 2.0 28 03/08/19 23:05 81 20 97 Nasal Cannula 2.0 28 03/08/19 21:00 Nasal Cannula 1.0 03/08/19 20:00 75 03/08/19 20:00 98.6 80 18 105/61 (76) 98 80 03/08/19 19:26 78 16 98 Nasal Cannula 2.0 28 03/08/19 19:16 84 20 96 Nasal Cannula 2.0 28 03/08/19 19:16 84 20 96 Nasal Cannula 2.0 28 03/08/19 17:58 102 128/69 03/08/19 16:00 94 03/08/19 16:00 1.0 03/08/19 16:00 98.1 102 18 128/69 (88) 100 102 03/08/19 15:25 87 18 95 Nasal Cannula 2.0 28 03/08/19 14:08 Nasal Cannula 03/08/19 14:08 Nasal Cannula 03/08/19 12:00 95 Intake and Output 03/08/19 03/09/19 18:59 06:59 Intake Total 930 ml Output Total 650 ml 400 ml Balance 280 ml -400 ml Intake Oral 930 ml Output Urine Total 650 ml 400 ml # Voids 1 # Bowel Movements 3 1 Laboratory Tests 03/09/19 05:58: White Blood Count 11.1H, Red Blood Count 3.55L, Hemoglobin 10.4L, Hematocrit 36.4L, Mean Corpuscular Volume 102H, Mean Corpuscular Hemoglobin 29.3, Mean Corpuscular Hemoglobin Concent 28.7L, Red Cell Distribution Width 20.4H, Platelet Count 346, Mean Platelet Volume 5.2L, Neutrophils (%) (Auto) 72.7, Lymphocytes (%) (Auto) 15.3L, Monocytes (%) (Auto) 8.4, Eosinophils (%) (Auto) 2.4, Basophils (%) (Auto) 1.2, Sodium Level 140, Potassium Level 5.0, Chloride Level 101, Carbon Dioxide Level 38H, Anion Gap 1L, Blood Urea Nitrogen 12, Creatinine 0.8, Estimat Glomerular Filtration Rate , Glucose Level 86, Calcium Level 9.1 Height (Feet): 5 Height (Inches): 3.00 Weight (Pounds): 159 General Appearance: no apparent distress, alert EENT: normal ENT inspection Neck: normal alignment Cardiovascular: regular rhythm Respiratory/Chest: lungs clear Abdomen: non tender, soft Extremities: other - djd hands knees trace edema Pastor Bowen MD Mar 09, 2019 11:54
[2019-03-09 12:00] VITALS: BP 105/65
[2019-03-09] MEDS: traMADol 50mg tab ORAL SCH ×2 (13:28→17:14)
--- NOTE | 2019-03-09 16:33 | Consultation ---
Consult Note Consult Note DICT # [id number] Raymond Florian MD Mar 09, 2019 16:33
[2019-03-09] MEDS ORDERED: Albuterol/Ipratropium 3ml neb HHN PRN (16:36)
[2019-03-09 16:42] VITALS: BP 124/73
--- NOTE | 2019-03-09 18:31 | Consultation ---
DATE OF CONSULTATION: 03/09/2019 PULMONARY AND CRITICAL CARE CONSULTATION CONSULTING PHYSICIAN: Raymond Florian M.D. REFERRING PHYSICIAN: Pastor Bowen M.D. REASON FOR CONSULTATION: COPD and shortness of breath. HISTORY OF PRESENT ILLNESS: The patient is an 79-year-old female, former smoker, prison resident with a history of CHF, COPD versus asthma, GERD, paroxysmal AFib, prior stroke, hypertension, hyperlipidemia, and dementia who was brought in by EMS from the facility with bradycardia and low blood pressure as well as shortness of breath. She was desaturating to 88% and there was a question of pneumonia on the chest x-ray at the facility. She was started on Augmentin and then given low blood pressure, was brought into the ER, it was felt by Dr. Bowen, who admitted the patient with hypotension, was medication-induced. Repeat x-ray at [facility] failed to demonstrate an infiltrate. PAST MEDICAL HISTORY: 1. CHF. 2. Paroxysmal atrial fibrillation. 3. Hypertension. 4. Hyperlipidemia. 5. CVA. 6. CAD. 7. Baseline right hemiparesis. 8. Hypertension. 9. Hyperlipidemia. 10. Diabetes. 11. CKD. 12. GERD. 13. Osteoarthritis. 14. Valvular heart disease. 15. Pulmonary hypertension. ALLERGIES: No known drug allergies. MEDICATIONS: Prior to admission medications reviewed. Current medications reviewed. SOCIAL HISTORY: She is a prison resident. Former smoker. FAMILY HISTORY: Noncontributory. REVIEW OF SYSTEMS: Negative on history of present illness. PHYSICAL EXAMINATION: VITAL SIGNS: Temperature 98.3, pulse 88, blood pressure 105/65, saturating 100% on 2 L. GENERAL: She is an elderly female, in no acute distress. Awake, alert, and oriented x3. HEENT: Normocephalic and atraumatic. Oropharynx is clear with moist mucous membranes. NECK: Supple without lymphadenopathy or JVD. CHEST: Clear to auscultation bilaterally. No wheezing, rales, or rhonchi. HEART: Regular rhythm. No murmurs, rubs, or gallops. ABDOMEN: Soft and nondistended. EXTREMITIES: No cyanosis, clubbing, or edema. ANCILLARY DATA: White count 11.1, hemoglobin 10.4, and platelet count 346,000. INR is 0.9. Sodium 140, potassium 5, chloride 101, bicarbonate 38, BUN 12, creatinine 0.8. TSH 0.3. Urinalysis with negative nitrites and 1+ leukocyte esterase. Urine culture, gram-negative bacilli. Blood culture negative x2. Chest x-ray from 03/07/2019 reviewed by myself, unremarkable. ASSESSMENT: The patient is an 79-year-old female, prison resident with a history of COPD, CHF, hypertension, hyperlipidemia, paroxysmal atrial fibrillation, CKD, GERD, admitted with hypotension and bradycardia, fairly stable from respiratory standpoint. There was concern of infiltrate on outside x-ray, but that is not shown on our current film. PROBLEM LIST: 1. COPD without evidence of exacerbation. 2. History of paroxysmal atrial fibrillation, here with bradycardia, in and out of AFib, likely sick sinus syndrome. 3. Systemic inflammatory response syndrome and hypotension, likely secondary to medications, stable. 4. CHF without evidence of exacerbation. 5. Hypertension. 6. Hyperlipidemia. 7. CKD. 8. GERD. 9. History of prior GI bleed. TREATMENT PLAN: 1. Optimize pulmonary hygiene/mobilize as tolerated. 2. P.r.n. O2. 3. Consider discontinuing Augmentin given no evidence of respiratory infection. 4. Hxgdl-bxz-disna and p.r.n. bronchodilators. 5. Monitor volumes and renal function, continue p.o. Lasix. 6. Follow up Cardiology recommendations. 7. DVT prophylaxis, heparin subcutaneous. 8. The patient is a Full Code. 9. Aspiration precautions. 10. Swallow evaluation. 11. The patient is Full Code. Raymond Florian M.D. DR: GEORGI JOB#: [id number] CC:
--- NOTE | 2019-03-09 19:23 | NUR ---
HAND-OFF: Report given to KARLY HARRIS.
--- NOTE | 2019-03-09 19:24 | NUR ---
NURSE NOTES: Received patient awake, lying in semi toussaint's; resting comfortably. A/O x 3-4. Denies pain at this time. No signs of acute cardiorespiratory distress noted. Checked IV site intact and flushed. No erythema, bleeding or infiltration noted. Bed at lowest position, brakes on, siderails x3. Call light within reach. Comfort care provided. Will continue to monitor.
[2019-03-09] MEDS: Albuterol/Ipratropium 3ml neb HHN SCH (19:42)
[2019-03-09 20:00] VITALS: BP 109/62
--- NOTE | 2019-03-09 20:26 | NUR ---
NURSE NOTES: Clarified with Dr. Moreno if Heparin dose can be given. Per doctor, ok to give.
--- NOTE | 2019-03-09 23:30 | Progress Note ---
DATE: 03/09/2019 CARDIOLOGY PROGRESS NOTE SUBJECTIVE: The patient is less congested, and has no shortness of breath, saturating adequately on room air. The patient had beta-román dose advanced yesterday in response to recurring atrial fibrillation with ventricular rates in the 80 to 100 range. The patient is back in sinus rhythm today with no bradycardia noted. The case was discussed with Dr. Bowen. OBJECTIVE: VITAL SIGNS: Blood pressure 98/57 earlier, presently 124/73, heart rate 97, respiratory rate 18, and afebrile. LUNGS: Diminished breath sounds CARDIAC: Regular rhythm and rate. Normal S1, S2 with a 1/6 systolic murmur at apex. ABDOMEN: Soft, nontender. EXTREMITIES: No edema. LABORATORY DATA: White count is 11, hemoglobin 10.4. Potassium 5, BUN 12, creatinine 0.8. IMPRESSION: 1. Sinus bradycardia, resolved off diltiazem. 2. Paroxysmal atrial fibrillation, now in sinus rhythm. 3. Chronic obstructive pulmonary disease with acute exacerbation, improving. 4. Paroxysmal bronchospasm. 5. Hypertensive heart disease. 6. Acute on chronic diastolic congestive heart failure. 7. History of gastrointestinal bleeding. 8. Cerebrovascular disease with history of cerebrovascular accident. PLAN: 1. No resumption of diltiazem. 2. Continue beta-román. 3. Maintain therapeutic electrolyte levels. 4. Titrate antihypertensives. 5. Avoid hypotension and orthostasis. 6. No plans for anticoagulation due to increased risk to benefit ratio. Jan Moreno M.D. DR: MOMO JOB#: [id number] CC:
[2019-03-10] VITALS: BP 114/65
[2019-03-10] MEDS: Albuterol/Ipratropium 3ml neb HHN SCH ×4 (01:05→20:16)
--- NOTE | 2019-03-10 03:59 | NUR ---
NURSE NOTES: Safety maintained throughout the night. No significant change of condition noted. Will continue to monitor.
[2019-03-10 04:00] VITALS: BP 140/80
--- NOTE | 2019-03-10 07:10 | NUR ---
HAND-OFF: Report given to [facility]. Plan of care endorsed.
--- NOTE | 2019-03-10 07:44 | NUR ---
NURSE NOTES: Received patient in bed. Awake and alert. Denies pain or discomfort. safety precautions in place. Bed locked to lowest position, Side rails X2 up. Call light within reach. Will follow.
[2019-03-10 08:00] VITALS: BP 120/67
--- NOTE | 2019-03-10 08:15 | NUR ---
CASE MANAGEMENT:REVIEW 03/10/19 SI: COPD. CHF. PAFIB. HYPOTENSION 97.4 64 18 140/80 97% ON 2L/NC WBC+11.1 IS: DUONEB HHN Q4HRS RTC LASIX PO QD ULTRAM PO TID TOPROL XL PO BID ASA PO QD LEXAPRO PO QD AUGMENTIN PO Q8HRS HEPARIN SQ Q12 : TELEMETRY STATUS DCP: FROM [facility]
--- NOTE | 2019-03-10 08:20 | Pulmonology Progress Note ---
Assessment/Plan Problems: (1) Episode of generalized weakness Assessment/Plan ASSESSMENT: The patient is an 79-year-old female, intermediate resident with a history of COPD, CHF, hypertension, hyperlipidemia, paroxysmal atrial fibrillation, CKD, GERD, admitted with hypotension and bradycardia, fairly stable from respiratory standpoint. There was concern of infiltrate on outside x-ray, but that is not shown on our current film. PROBLEM LIST: 1. COPD without evidence of exacerbation. 2. History of paroxysmal atrial fibrillation, here with bradycardia, in and out of AFib, likely sick sinus syndrome. 3. Systemic inflammatory response syndrome and hypotension, likely secondary to medications, stable. 4. CHF without evidence of exacerbation. 5. Hypertension. 6. Hyperlipidemia. 7. CKD. 8. GERD. 9. History of prior GI bleed. TREATMENT PLAN: 1. Optimize pulmonary hygiene/mobilize as tolerated. 2. P.r.n. O2. 3. Abx 4. Ptmig-tyn-xtugl and p.r.n. bronchodilators. 5. Monitor volumes and renal function, continue p.o. Lasix. 6. Follow up Cardiology recommendations. 7. DVT prophylaxis, heparin subcutaneous. 8. The patient is a Full Code. 9. Aspiration precautions. 10. Swallow evaluation. 11. The patient is Full Code. Subjective Allergies: Coded Allergies: No Known Allergies (Unverified , 06/05/14) Subjective AFVSS O2 needs stable No SOB, no cough, no CP, no FC Objective Last 24 Hour Vital Signs Date Time Temp Pulse Resp B/P (MAP) Pulse Ox O2 Delivery O2 Flow Rate FiO2 03/10/19 08:13 Nasal Cannula 2.0 28 03/10/19 08:12 Nasal Cannula 2.0 28 03/10/19 08:12 Nasal Cannula 2.0 28 03/10/19 04:00 97.4 66 18 140/80 (100) 97 03/10/19 04:00 64 03/10/19 01:15 Nasal Cannula 2.0 28 03/10/19 01:05 Nasal Cannula 2.0 28 03/10/19 00:00 98.9 73 18 114/65 (81) 99 03/10/19 00:00 81 03/09/19 21:00 Nasal Cannula 1.0 03/09/19 20:00 98.9 68 18 109/62 (78) 98 03/09/19 20:00 70 03/09/19 19:42 Nasal Cannula 2.0 28 03/09/19 19:42 Nasal Cannula 2.0 28 03/09/19 19:39 72 18 97 Nasal Cannula 2.0 28 03/09/19 17:13 97 124/73 03/09/19 16:42 98.1 97 20 124/73 (90) 96 03/09/19 16:00 84 03/09/19 14:45 78 18 99 Nasal Cannula 2.0 28 03/09/19 14:35 80 18 95 Nasal Cannula 2.0 28 03/09/19 12:28 73 18 100 Nasal Cannula 2.0 28 03/09/19 12:18 71 18 100 Nasal Cannula 2.0 28 03/09/19 12:00 73 03/09/19 12:00 98.2 88 20 105/65 (78) 98 03/09/19 10:22 Nasal Cannula 1.0 03/09/19 08:59 84 98/57 03/09/19 08:51 98.8 84 20 98/57 (71) 98 Intake and Output 03/09/19 03/10/19 19:00 07:00 Intake Total 720 ml Output Total 600 ml Balance 120 ml Intake Oral 720 ml Output Urine Total 600 ml # Voids 1 2 # Bowel Movements 2 1 General Appearance: WD/WN, no acute distress HEENT: normocephalic, atraumatic, anicteric, mucous membranes moist Respiratory/Chest: chest wall non-tender, lungs clear, normal breath sounds, no respiratory distress Cardiovascular: normal peripheral pulses, normal rate, regular rhythm Abdomen: normal bowel sounds, soft, non tender, no organomegaly, non distended , no mass Extremities: no cyanosis, no clubbing, no edema Microbiology Date/Time Source Procedure Growth Status 03/07/19 15:25 Blood Blood Culture - Preliminary NO GROWTH AFTER 48 HOURS Resulted 03/07/19 15:20 Blood Blood Culture - Preliminary NO GROWTH AFTER 48 HOURS Resulted 03/08/19 04:00 Urine,Clean Catch Urine Culture - Preliminary Gram Negative Bacillus 1 Resulted 03/07/19 15:30 Rectum - Final NO CARBAPENEM-RESISTANT ENTEROBACTERI... Complete 03/07/19 15:30 Rectum VRE Culture - Final NO VANCOMYCIN RESISTANT ENTEROCOCCUS ... Complete Current Medications Medications (Trade) Dose Ordered Sig/Kate Route PRN Reason Start Time Stop Time Status Last Admin Dose Admin Acetaminophen (Tylenol) 1,000 mg Q8H PRN ORAL For Pain 03/07/19 18:30 04/06/19 18:29 03/08/19 16:39 Albuterol/ Ipratropium (Albuterol/ Ipratropium) 3 ml Q4H PRN HHN Shortness of Breath 03/09/19 16:36 03/14/19 16:35 Albuterol/ Ipratropium (Albuterol/ Ipratropium) 3 ml Q6HRT HHN 03/09/19 19:00 03/14/19 18:59 Amoxicillin/ Clavulanate Potassium (Augmentin) 500 mg EVERY 8 HOURS ORAL 03/07/19 22:00 03/14/19 21:59 03/10/19 05:51 Artificial Tears (Akwa-Tears) 1 drop QID BOTH EYES 03/07/19 21:00 04/06/19 20:59 03/09/19 21:04 Aspirin (Ecotrin) 81 mg DAILY ORAL 03/08/19 09:00 04/07/19 08:59 03/09/19 08:58 Atorvastatin Calcium (Lipitor) 10 mg BEDTIME ORAL 03/07/19 21:00 04/06/19 20:59 03/09/19 21:03 Dextrose (Dextrose 50%) 25 ml Q30M PRN IV Hypoglycemia 03/07/19 18:30 04/06/19 18:29 Dextrose (Dextrose 50%) 50 ml Q30M PRN IV Hypoglycemia 03/07/19 18:30 04/06/19 18:29 Docusate Sodium (Colace) 100 mg TWICE A DAY ORAL 03/08/19 09:00 04/07/19 08:59 03/08/19 16:39 Escitalopram Oxalate (Lexapro) 5 mg DAILY ORAL 03/08/19 09:00 04/07/19 08:59 03/09/19 08:58 Furosemide (Lasix) 20 mg Q24H ORAL 03/09/19 16:00 04/08/19 15:59 03/09/19 17:13 Furosemide (Lasix) 40 mg DAILY ORAL 03/09/19 09:00 04/08/19 08:59 03/09/19 08:59 Gabapentin (Neurontin) 300 mg QHS ORAL 03/07/19 21:00 04/06/19 20:59 03/09/19 21:03 Heparin Sodium (Porcine) (Heparin 5000 units/ml) 5,000 units EVERY 12 HOURS SUBQ 03/07/19 21:00 04/06/19 20:59 03/09/19 21:05 Magnesium Hydroxide (Mom) 30 ml DAILY ORAL 03/08/19 09:00 04/07/19 08:59 03/08/19 09:34 Metoprolol Succinate (Toprol XL) 25 mg BID ORAL 03/08/19 18:00 04/07/19 17:59 03/09/19 17:13 Nitroglycerin (Ntg) 0.4 mg Q5M PRN SL Prn Chest Pain 03/07/19 18:30 04/06/19 18:29 Ondansetron HCl (Zofran) 4 mg Q6H PRN IVP Nausea & Vomiting 03/07/19 18:30 04/06/19 18:29 Pantoprazole (Protonix) 40 mg DAILY ORAL 03/08/19 09:00 04/07/19 08:59 03/09/19 08:59 Polyethylene Glycol (Miralax) 17 gm DAILYPRN PRN ORAL Constipation 03/07/19 18:30 04/06/19 18:29 Tramadol HCl (Ultram) 50 mg TID ORAL 03/09/19 13:00 03/16/19 12:59 03/09/19 17:14 Raymond Florian MD Mar 10, 2019 08:20
[2019-03-10] MEDS: Furosemide 40mg tab ORAL SCH (08:58)
[2019-03-10] MEDS: Docusate 100mg cap ORAL SCH ×2 (08:59→17:09)
[2019-03-10] MEDS: Metoprolol Succinate XL 25mg tab ORAL SCH ×2 (08:59→21:45)
[2019-03-10] MEDS: Milk of Magnesia 30ml Ud ORAL SCH (08:59)
[2019-03-10] MEDS: Aspirin EC 81mg tab ORAL SCH (08:59)
[2019-03-10] MEDS: traMADol 50mg tab ORAL SCH (08:59)
[2019-03-10] MEDS: Heparin 5000 units/ml inj SUBQ SCH ×2 (09:01→21:47)
[2019-03-10] MEDS: Artificial Tears 1.4% Op Soln BOTH EYES SCH ×4 (09:02→21:45)
[2019-03-10 09:03] LABS: BLOOD UREA NITROGEN 14 mg/dL (7-18); CHLORIDE 98 MMOL/L (98-107); POTASSIUM 4.8 MMOL/L (3.5-5.1); SODIUM 139 MMOL/L (136-145)
[2019-03-10 09:13] LABS: CARBON DIOXIDE 42 MMOL/L (21-32)
[2019-03-10 09:15] LABS: ANION GAP 0 mmol/L (5-15)
--- NOTE | 2019-03-10 11:00 | NUR ---
NURSE NOTES: Dr. Bowen made aware of critical C02 lab result of 42. Patient awake but sleepy. MD ordered STAT ABG. will follow
--- NOTE | 2019-03-10 12:08 | NUR ---
DISCHARGE PLANNING CLINICALS FAXED TO [facility] GHISLAINE ROSA T: [phone] Addendum: 03/10/19 at 1321 by DANILO CEDILLO LVN LVN WHEN READY FOR DISCHARGE PATIENT WILL BE ACCEPTED BACK TO ROOM [facility]
--- NOTE | 2019-03-10 12:19 | NUR ---
NURSE NOTES: Summoned to patients room by RT/PT patient difficult to arouse. PCO2 result 102.9 Dr. Florian made aware. Patient placed on Bipap stat. patient becomes more awake. VS WNL. Will Follow
[2019-03-10 13:00] VITALS: BP 114/54
--- NOTE | 2019-03-10 13:00 | General Progress Note ---
Assessment/Plan Problem List: (1) COPD (chronic obstructive pulmonary disease) ICD Codes: J44.9 - Chronic obstructive pulmonary disease, unspecified SNOMED: 47583848 (2) Hyperkalemia ICD Codes: E87.5 - Hyperkalemia SNOMED: 91795910 (3) CHF (congestive heart failure) ICD Codes: I50.9 - Heart failure, unspecified SNOMED: 93892249 (4) Hypotension ICD Codes: I95.9 - Hypotension, unspecified SNOMED: 58828590 (5) Paroxysmal A-fib ICD Codes: I48.0 - Paroxysmal atrial fibrillation SNOMED: 289968748 (6) Hypotension ICD Codes: I95.9 - Hypotension, unspecified SNOMED: 76360919 Qualifiers: Qualified Codes: I95.2 - Hypotension due to drugs (7) Respiratory acidosis ICD Codes: E87.2 - Acidosis SNOMED: 18625766 Assessment/Plan: no bradycardia today but back in afib 03/08 nsr 03/09 , prior GI bleed not on anticoag, copd, bronchitis continue tele and possible adjustment antiarrythmia rx per dr zelaya, pCO2 to 103 d/w dr glover, started bipap but she removed watch closely Subjective Constitutional: Reports: weakness HEENT: Reports: no symptoms Cardiovascular: Reports: irregular heart rate Respiratory: Reports: shortness of breath Gastrointestinal/Abdominal: Reports: no symptoms Genitourinary: Reports: incontinence Neurologic/Psychiatric: Reports: pre-existing deficit Endocrine: Reports: no symptoms Hematologic/Lymphatic: Reports: no symptoms Allergies: Coded Allergies: No Known Allergies (Unverified , 06/05/14) Objective Last 24 Hour Vital Signs Date Time Temp Pulse Resp B/P (MAP) Pulse Ox O2 Delivery O2 Flow Rate FiO2 03/10/19 11:40 66 15 100 Facial 30 03/10/19 09:29 97.8 03/10/19 08:59 75 120/67 03/10/19 08:13 Nasal Cannula 2.0 28 03/10/19 08:12 Nasal Cannula 2.0 28 03/10/19 08:12 Nasal Cannula 2.0 28 03/10/19 08:00 97.8 75 18 120/67 (84) 99 03/10/19 08:00 106 03/10/19 04:00 97.4 66 18 140/80 (100) 97 03/10/19 04:00 64 03/10/19 01:15 Nasal Cannula 2.0 28 03/10/19 01:05 Nasal Cannula 2.0 28 03/10/19 00:00 98.9 73 18 114/65 (81) 99 03/10/19 00:00 81 03/09/19 21:00 Nasal Cannula 1.0 03/09/19 20:00 98.9 68 18 109/62 (78) 98 03/09/19 20:00 70 03/09/19 19:42 Nasal Cannula 2.0 28 03/09/19 19:42 Nasal Cannula 2.0 28 03/09/19 19:39 72 18 97 Nasal Cannula 2.0 28 03/09/19 17:13 97 124/73 03/09/19 16:42 98.1 97 20 124/73 (90) 96 03/09/19 16:00 84 03/09/19 14:45 78 18 99 Nasal Cannula 2.0 28 03/09/19 14:35 80 18 95 Nasal Cannula 2.0 28 Intake and Output 03/09/19 03/10/19 18:59 06:59 Intake Total 720 ml Output Total 600 ml Balance 120 ml Intake Oral 720 ml Output Urine Total 600 ml # Voids 1 2 # Bowel Movements 2 1 Laboratory Tests 03/10/19 08:25: Sodium Level 139, Potassium Level 4.8, Chloride Level 98, Carbon Dioxide Level 42*H, Anion Gap 0L, Blood Urea Nitrogen 14, Creatinine 1.0, Estimat Glomerular Filtration Rate , Glucose Level 97, Calcium Level 9.0 03/10/19 11:04: Arterial Blood pH 7.268L, Arterial Blood Partial Pressure CO2 102.9*H, Arterial Blood Partial Pressure O2 100.3H, Arterial Blood HCO3 46.0*H, Arterial Blood Oxygen Saturation 97.0, Arterial Blood Base Excess 15.3*H, Hal Test Positive Height (Feet): 5 Height (Inches): 3.00 Weight (Pounds): 159 General Appearance: alert EENT: normal ENT inspection Neck: normal alignment Cardiovascular: normal rate, regular rhythm Respiratory/Chest: lungs clear, decreased breath sounds Abdomen: non tender, soft Extremities: other - trace edema Neurologic: motor weakness, disoriented Pastor Bowen MD Mar 10, 2019 13:00
[2019-03-10 16:00] VITALS: BP 127/82
--- NOTE | 2019-03-10 16:30 | NUR ---
NURSE NOTES: Dr. Florian made aware of repeat ABG result. MD ordered patient Bipap PRN. patient on 1L/min O2 via NC.
--- NOTE | 2019-03-10 17:36 | Diagnostic Imaging Report ---
Indication: Shortness of Technique: One view of the chest Comparison: 03/07/2019 Findings: Less optimal inspiration currently. Right perihilar atelectasis versus scarring again demonstrated. Lungs and pleural spaces are otherwise clear. Heart size is normal. The aorta is calcified. No significant interim change Impression: No acute process
--- NOTE | 2019-03-10 19:43 | NUR ---
HAND-OFF: Report given to Gena Murillo. Patiwent awake and alert at bedside. answering questions appropriately. Plan of care endorsed.
--- NOTE | 2019-03-10 19:50 | NUR ---
NURSE NOTES: Received pt from [facility]. Pt awake, alert, and talkative. Bed in lowest position. Call light within reach. Will continue to monitor.
[2019-03-10 20:00] VITALS: BP 115/58
[2019-03-11] VITALS: BP 116/71
[2019-03-11] MEDS: Albuterol/Ipratropium 3ml neb HHN SCH ×4 (01:14→19:42)
[2019-03-11 04:00] VITALS: BP 127/72
[2019-03-11] MEDS: Acetaminophen 500mg (ES) tab ORAL PRN (04:03)
[2019-03-11 06:02] LABS: EOSINOPHILS % (AUTO) 1.5 % (0.0-3.0); HEMATOCRIT 35.9 % (37.0-47.0); HEMOGLOBIN 10.6 G/DL (12.0-16.0); LYMPHOCYTES % (AUTO) 10.6 % (20.0-45.0); MEAN CORPUSCULAR VOLUME 101 FL (80-99); NEUTROPHILS % (AUTO) 81.9 % (45.0-75.0); PLATELET COUNT 375 K/UL (150-450); RED BLOOD COUNT 3.56 M/UL (4.20-5.40); RED CELL DISTRIBUTION WIDTH 19.7 % (11.6-14.8); WHITE BLOOD COUNT 14.5 K/UL (4.8-10.8)
[2019-03-11 06:17] LABS: ANION GAP 2 mmol/L (5-15); BLOOD UREA NITROGEN 15 mg/dL (7-18); CALCIUM 9.6 MG/DL (8.5-10.1); CHLORIDE 95 MMOL/L (98-107); CREATININE 0.9 MG/DL (0.55-1.30); POTASSIUM 4.3 MMOL/L (3.5-5.1); SODIUM 137 MMOL/L (136-145)
[2019-03-11 06:38] LABS: CARBON DIOXIDE 40 MMOL/L (21-32)
--- NOTE | 2019-03-11 07:41 | NUR ---
NURSE NOTES: Received patient from Gena Murillo. Patient awake and alert eating breakfast. No c/o pain or discomfort. Oxygen @ 1L/min via Nasal Cannula. Denies pain or discomfort. ETCO2 monitoring by Rt. Safely precautions in place. call light within patients reach. Will follow.
[2019-03-11 08:00] VITALS: BP 123/75
[2019-03-11] MEDS: Docusate 100mg cap ORAL SCH ×2 (09:00→17:20)
[2019-03-11] MEDS: Milk of Magnesia 30ml Ud ORAL SCH (09:07)
[2019-03-11] MEDS: Aspirin EC 81mg tab ORAL SCH (09:07)
[2019-03-11] MEDS: Artificial Tears 1.4% Op Soln BOTH EYES SCH ×4 (09:07→21:01)
[2019-03-11] MEDS: Metoprolol Succinate XL 25mg tab ORAL SCH ×2 (09:08→21:11)
[2019-03-11] MEDS: Furosemide 40mg tab ORAL SCH (09:08)
[2019-03-11] MEDS: Heparin 5000 units/ml inj SUBQ SCH ×2 (09:10→21:13)
--- NOTE | 2019-03-11 11:04 | NUR ---
RD ASSESSMENT & RECOMMENDATIONS SEE CARE ACTIVITY FOR COMPLETE ASSESSMENT DAILY ESTIMATED NEEDS: Needs based on pulmonary, cardiac/ 60.5kg 25-30 kcals/kg 2505-1689 total kcals 1-1.5 g protein/kg 61-91 g total protein 20-25 mL/kg 8532-5538 total fluid mLs NUTRITION DIAGNOSIS: Swallowing difficulty R/T dysphagia, h/o CVA as evidenced by pt on mech soft chopped texture. CURRENT DIET:E[place], mech soft chopped PO DIET RECOMMENDATIONS: LOW NA/ texture per WIRE TECHNICIAN ADDITIONAL RECOMMENDATIONS: * Calibrated bedscale wt -> daily wts per policy : CHF dx * Monitor lytes closely while on lasix, replete as needed * WIRE TECHNICIAN evaluation for appropriate texture -> WIRE TECHNICIAN had recommended pureed moist, NTL during December admission . .
[2019-03-11 12:00] VITALS: BP 112/64
--- NOTE | 2019-03-11 12:13 | General Progress Note ---
Assessment/Plan Problem List: (1) COPD (chronic obstructive pulmonary disease) ICD Codes: J44.9 - Chronic obstructive pulmonary disease, unspecified SNOMED: 69528725 (2) Hyperkalemia ICD Codes: E87.5 - Hyperkalemia SNOMED: 62607884 (3) CHF (congestive heart failure) ICD Codes: I50.9 - Heart failure, unspecified SNOMED: 98144860 (4) Hypotension ICD Codes: I95.9 - Hypotension, unspecified SNOMED: 51837818 (5) Paroxysmal A-fib ICD Codes: I48.0 - Paroxysmal atrial fibrillation SNOMED: 557244607 (6) Hypotension ICD Codes: I95.9 - Hypotension, unspecified SNOMED: 80391262 Qualifiers: Qualified Codes: I95.2 - Hypotension due to drugs (7) Respiratory acidosis ICD Codes: E87.2 - Acidosis SNOMED: 42206187 Assessment/Plan: no bradycardia today but back in afib 03/08 nsr 03/09 ,afib 03/11 prior GI bleed not on anticoag, copd, bronchitis continue tele and possible adjustment antiarrythmia rx per dr zelaya, pCO2 to 103 d/w dr glover, started bipap but she removed watch closely on low flow O2 Subjective Constitutional: Reports: other HEENT: Reports: no symptoms Cardiovascular: Reports: irregular heart rate Respiratory: Reports: cough, shortness of breath Gastrointestinal/Abdominal: Reports: no symptoms Genitourinary: Reports: incontinence Neurologic/Psychiatric: Reports: pre-existing deficit Endocrine: Reports: no symptoms Hematologic/Lymphatic: Reports: no symptoms Allergies: Coded Allergies: No Known Allergies (Unverified , 06/05/14) Objective Last 24 Hour Vital Signs Date Time Temp Pulse Resp B/P (MAP) Pulse Ox O2 Delivery O2 Flow Rate FiO2 03/11/19 09:08 110 123/75 03/11/19 09:00 Nasal Cannula 2.0 03/11/19 08:00 110 03/11/19 08:00 97.7 110 20 123/75 (91) 95 03/11/19 07:10 Nasal Cannula 2.0 28 03/11/19 04:00 99.0 104 16 127/72 (90) 96 03/11/19 04:00 120 03/11/19 01:21 77 18 93 Nasal Cannula 2.0 28 03/11/19 01:19 71 18 94 Nasal Cannula 2.0 28 71 18 94 03/11/19 00:00 99.7 88 16 116/71 (86) 95 03/11/19 00:00 82 03/10/19 21:45 82 115/58 03/10/19 21:00 Nasal Cannula 2.0 03/10/19 20:16 69 18 93 Nasal Cannula 2.0 28 77 18 93 03/10/19 20:00 98.9 82 16 115/58 (77) 95 03/10/19 20:00 80 03/10/19 16:00 75 03/10/19 16:00 97.5 79 17 127/82 (97) 96 03/10/19 13:57 66 20 98 Nasal Cannula 1.0 24 03/10/19 13:47 70 20 94 Nasal Cannula 1.0 24 03/10/19 13:00 98.7 76 22 114/54 (74) 95 Intake and Output 03/10/19 03/11/19 19:00 07:00 Intake Total 700 ml Balance 700 ml Other 700 ml # Voids 3 # Bowel Movements 1 1 Laboratory Tests 03/10/19 16:04: Arterial Blood pH 7.425, Arterial Blood Partial Pressure CO2 64.6*H, Arterial Blood Partial Pressure O2 62.7L, Arterial Blood HCO3 41.4*H, Arterial Blood Oxygen Saturation 91.9L, Arterial Blood Base Excess 14.6*H, Hal Test Positive 03/11/19 05:20: White Blood Count 14.5H, Red Blood Count 3.56L, Hemoglobin 10.6L, Hematocrit 35.9L, Mean Corpuscular Volume 101H, Mean Corpuscular Hemoglobin 29.6, Mean Corpuscular Hemoglobin Concent 29.4L, Red Cell Distribution Width 19.7H, Platelet Count 375, Mean Platelet Volume 5.1L, Neutrophils (%) (Auto) 81.9H, Lymphocytes (%) (Auto) 10.6L, Monocytes (%) (Auto) 5.0, Eosinophils (%) (Auto) 1.5, Basophils (%) (Auto) 1.0, Sodium Level 137, Potassium Level 4.3, Chloride Level 95L, Carbon Dioxide Level 40H, Anion Gap 2L, Blood Urea Nitrogen 15, Creatinine 0.9, Estimat Glomerular Filtration Rate , Glucose Level 102, Calcium Level 9.6 Height (Feet): 5 Height (Inches): 3.00 Weight (Pounds): 159 General Appearance: no apparent distress, alert, obese EENT: normal ENT inspection Neck: normal alignment Cardiovascular: normal rate, regularly irregular Respiratory/Chest: lungs clear, decreased breath sounds Abdomen: non tender Edema: trace edema 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
[2019-03-11 16:00] VITALS: BP 124/78
--- NOTE | 2019-03-11 19:19 | NUR ---
NURSE NOTES: Received pt from [facility] Live. pt awake, alert, and talkative. Bed in lowest position. Pt still connected to co2 monitoring. Call light within reach. Will continue to monitor.
--- NOTE | 2019-03-11 19:22 | NUR ---
HAND-OFF: Report given to Gena Murillo. Patient stable. Plan of care endorsed.
[2019-03-11 20:00] VITALS: BP 123/74
--- NOTE | 2019-03-11 20:44 | Pulmonology Progress Note ---
Assessment/Plan Assessment/Plan PROBLEM LIST: 1. COPD without evidence of exacerbation. 2. History of paroxysmal atrial fibrillation, here with bradycardia, in and out of AFib, likely sick sinus syndrome. 3. Systemic inflammatory response syndrome and hypotension, likely secondary to medications, stable. 4. CHF without evidence of exacerbation. 5. Hypertension. 6. Hyperlipidemia. 7. CKD. 8. GERD. 9. History of prior GI bleed. TREATMENT PLAN: 1. Optimize pulmonary hygiene/mobilize as tolerated. 2. P.r.n. O2. 3. Abx 4. Hueiq-ezi-ebudl and p.r.n. bronchodilators. 5. Monitor volumes and renal function, continue p.o. Lasix. 6. Follow up Cardiology recommendations. 7. DVT prophylaxis, heparin subcutaneous. 8. The patient is a Full Code. 9. Aspiration precautions. 10. Swallow evaluation. 11. The patient is Full Code. Subjective Constitutional: Reports: no symptoms HEENT: Repors: no symptoms Respiratory: Reports: no symptoms Cardiovascular: Reports: no symptoms Allergies: Coded Allergies: No Known Allergies (Unverified , 06/05/14) Subjective better today not on bipap at this time toleraeting po not getting oob remaisn on o2 no cp nv or bleeding Objective Last 24 Hour Vital Signs Date Time Temp Pulse Resp B/P (MAP) Pulse Ox O2 Delivery O2 Flow Rate FiO2 03/11/19 19:42 103 18 98 Nasal Cannula 2.0 100 18 95 03/11/19 19:41 95 Nasal Cannula 2.0 03/11/19 16:00 103 03/11/19 16:00 98.0 93 20 124/78 (93) 98 03/11/19 15:23 72 18 96 Nasal Cannula 2.0 28 66 16 94 03/11/19 14:00 96 03/11/19 13:14 Nasal Cannula 2.0 28 03/11/19 12:00 98.2 76 18 112/64 (80) 97 03/11/19 09:08 110 123/75 03/11/19 09:00 Nasal Cannula 2.0 03/11/19 08:00 110 03/11/19 08:00 97.7 110 20 123/75 (91) 95 03/11/19 07:10 Nasal Cannula 2.0 28 03/11/19 04:00 99.0 104 16 127/72 (90) 96 03/11/19 04:00 120 03/11/19 01:21 77 18 93 Nasal Cannula 2.0 28 03/11/19 01:19 71 18 94 Nasal Cannula 2.0 28 71 18 94 03/11/19 00:00 99.7 88 16 116/71 (86) 95 03/11/19 00:00 82 03/10/19 21:45 82 115/58 03/10/19 21:00 Nasal Cannula 2.0 Intake and Output 03/10/19 03/11/19 19:00 07:00 Intake Total 700 ml Balance 700 ml Other 700 ml # Voids 3 # Bowel Movements 1 1 General Appearance: WD/WN Respiratory/Chest: lungs clear, no respiratory distress Cardiovascular: normal peripheral pulses, normal rate, regular rhythm Abdomen: soft, non tender, non distended Extremities: no cyanosis Skin: no rash Neurologic/Psychiatric: alert, oriented x 3, responsive Laboratory Tests 03/11/19 05:20: White Blood Count 14.5H, Red Blood Count 3.56L, Hemoglobin 10.6L, Hematocrit 35.9L, Mean Corpuscular Volume 101H, Mean Corpuscular Hemoglobin 29.6, Mean Corpuscular Hemoglobin Concent 29.4L, Red Cell Distribution Width 19.7H, Platelet Count 375, Mean Platelet Volume 5.1L, Neutrophils (%) (Auto) 81.9H, Lymphocytes (%) (Auto) 10.6L, Monocytes (%) (Auto) 5.0, Eosinophils (%) (Auto) 1.5, Basophils (%) (Auto) 1.0, Sodium Level 137, Potassium Level 4.3, Chloride Level 95L, Carbon Dioxide Level 40H, Anion Gap 2L, Blood Urea Nitrogen 15, Creatinine 0.9, Estimat Glomerular Filtration Rate , Glucose Level 102, Calcium Level 9.6 Current Medications Medications (Trade) Dose Ordered Sig/Kate Route PRN Reason Start Time Stop Time Status Last Admin Dose Admin Acetaminophen (Tylenol) 1,000 mg Q8H PRN ORAL For Pain 03/07/19 18:30 04/06/19 18:29 03/11/19 04:03 Albuterol/ Ipratropium (Albuterol/ Ipratropium) 3 ml Q4H PRN HHN Shortness of Breath 03/09/19 16:36 03/14/19 16:35 03/11/19 15:23 Albuterol/ Ipratropium (Albuterol/ Ipratropium) 3 ml Q6HRT HHN 03/09/19 19:00 03/14/19 18:59 03/11/19 19:42 Amoxicillin/ Clavulanate Potassium (Augmentin) 500 mg EVERY 8 HOURS ORAL 03/07/19 22:00 03/14/19 21:59 03/11/19 13:40 Artificial Tears (Akwa-Tears) 1 drop QID BOTH EYES 03/07/19 21:00 04/06/19 20:59 03/11/19 17:20 Aspirin (Ecotrin) 81 mg DAILY ORAL 03/08/19 09:00 04/07/19 08:59 03/11/19 09:07 Atorvastatin Calcium (Lipitor) 10 mg BEDTIME ORAL 03/07/19 21:00 04/06/19 20:59 03/10/19 21:45 Dextrose (Dextrose 50%) 25 ml Q30M PRN IV Hypoglycemia 03/07/19 18:30 04/06/19 18:29 Dextrose (Dextrose 50%) 50 ml Q30M PRN IV Hypoglycemia 03/07/19 18:30 04/06/19 18:29 Docusate Sodium (Colace) 100 mg TWICE A DAY ORAL 03/08/19 09:00 04/07/19 08:59 03/11/19 17:20 Escitalopram Oxalate (Lexapro) 5 mg DAILY ORAL 03/08/19 09:00 04/07/19 08:59 03/11/19 09:07 Furosemide (Lasix) 20 mg Q24H ORAL 03/09/19 16:00 04/08/19 15:59 03/11/19 17:20 Furosemide (Lasix) 40 mg DAILY ORAL 03/09/19 09:00 04/08/19 08:59 03/11/19 09:08 Heparin Sodium (Porcine) (Heparin 5000 units/ml) 5,000 units EVERY 12 HOURS SUBQ 03/07/19 21:00 04/06/19 20:59 03/11/19 09:10 Magnesium Hydroxide (Mom) 30 ml DAILY ORAL 03/08/19 09:00 04/07/19 08:59 03/11/19 09:07 Metoprolol Succinate (Toprol XL) 25 mg Q12HR ORAL 03/10/19 21:00 04/07/19 17:59 03/11/19 09:08 Nitroglycerin (Ntg) 0.4 mg Q5M PRN SL Prn Chest Pain 03/07/19 18:30 04/06/19 18:29 Ondansetron HCl (Zofran) 4 mg Q6H PRN IVP Nausea & Vomiting 03/07/19 18:30 04/06/19 18:29 Pantoprazole (Protonix) 40 mg DAILY ORAL 03/08/19 09:00 04/07/19 08:59 03/11/19 09:08 Polyethylene Glycol (Miralax) 17 gm DAILYPRN PRN ORAL Constipation 03/07/19 18:30 04/06/19 18:29 Keren Bernal DO Mar 11, 2019 20:44
[2019-03-12] VITALS: BP 103/62
--- NOTE | 2019-03-12 00:19 | NUR ---
HAND-OFF: Report given to STEVEN Faustin. Pt stable.
--- NOTE | 2019-03-12 00:20 | NUR ---
NURSE NOTES: Received report from STEVEN Murillo. Pt is asleep in bed. Easily arousable. In no acute distress. Will continue to plan of care.
[2019-03-12] MEDS: Albuterol/Ipratropium 3ml neb HHN SCH ×4 (01:20→18:42)
[2019-03-12] MEDS: Acetaminophen 500mg (ES) tab ORAL PRN (02:30)
[2019-03-12 04:00] VITALS: BP 114/57
--- NOTE | 2019-03-12 07:05 | NUR ---
HAND-OFF: Report given to [facility] Live.
--- NOTE | 2019-03-12 07:21 | NUR ---
NURSE NOTES: Received patient from STEVEN Faustin. Patient sleeping comfortably in bed. No s/s of pain or discomfort. safety precautions in place. Side rails X3 up. bed locked to lowest position. Call gonzalez within patients reach. will continue plan of care.
[2019-03-12 08:00] VITALS: BP 110/68
[2019-03-12] MEDS: Milk of Magnesia 30ml Ud ORAL SCH ×2 (08:43→08:50)
[2019-03-12] MEDS: Docusate 100mg cap ORAL SCH ×2 (08:43→17:15)
[2019-03-12] MEDS: Furosemide 40mg tab ORAL SCH (08:43)
[2019-03-12] MEDS: Artificial Tears 1.4% Op Soln BOTH EYES SCH ×4 (08:43→21:06)
[2019-03-12] MEDS: Aspirin EC 81mg tab ORAL SCH (08:43)
[2019-03-12] MEDS: Metoprolol Succinate XL 25mg tab ORAL SCH ×2 (08:44→21:08)
[2019-03-12] MEDS: Heparin 5000 units/ml inj SUBQ SCH ×2 (08:47→21:11)
--- NOTE | 2019-03-12 11:07 | General Progress Note ---
Assessment/Plan Problem List: (1) COPD (chronic obstructive pulmonary disease) ICD Codes: J44.9 - Chronic obstructive pulmonary disease, unspecified SNOMED: 95137886 (2) Hyperkalemia ICD Codes: E87.5 - Hyperkalemia SNOMED: 82576158 (3) CHF (congestive heart failure) ICD Codes: I50.9 - Heart failure, unspecified SNOMED: 32251045 (4) Hypotension ICD Codes: I95.9 - Hypotension, unspecified SNOMED: 88817736 (5) Paroxysmal A-fib ICD Codes: I48.0 - Paroxysmal atrial fibrillation SNOMED: 628953882 (6) Hypotension ICD Codes: I95.9 - Hypotension, unspecified SNOMED: 24340359 Qualifiers: Qualified Codes: I95.2 - Hypotension due to drugs (7) Respiratory acidosis ICD Codes: E87.2 - Acidosis SNOMED: 47139849 Assessment/Plan: no bradycardia today but back in afib 03/08 nsr 03/09 ,afib 03/11 prior GI bleed not on anticoag, copd, bronchitis continue tele and possible adjustment antiarrythmia rx per dr zelaya, pCO2 to 103 d/w dr glover, started bipap but she removed alert on nasal cannula watch closely on low flow O2 Subjective Constitutional: Reports: weakness HEENT: Reports: no symptoms Cardiovascular: Reports: irregular heart rate Respiratory: Reports: shortness of breath Gastrointestinal/Abdominal: Reports: no symptoms Genitourinary: Reports: incontinence Neurologic/Psychiatric: Reports: pre-existing deficit Endocrine: Reports: no symptoms Hematologic/Lymphatic: Reports: no symptoms Allergies: Coded Allergies: No Known Allergies (Unverified , 06/05/14) Objective Last 24 Hour Vital Signs Date Time Temp Pulse Resp B/P (MAP) Pulse Ox O2 Delivery O2 Flow Rate FiO2 03/12/19 09:00 Nasal Cannula 2.0 03/12/19 08:44 88 110/68 03/12/19 08:00 109 03/12/19 08:00 98.5 88 20 110/68 (82) 96 03/12/19 06:37 96 Nasal Cannula 2.0 28 03/12/19 06:37 82 16 99 Nasal Cannula 2.0 28 78 16 96 03/12/19 04:00 97.4 96 20 114/57 (76) 96 03/12/19 04:00 96 03/12/19 01:20 89 18 99 Nasal Cannula 2.0 28 86 18 97 03/12/19 00:00 105 03/12/19 00:00 97.4 97 20 103/62 (76) 97 03/11/19 21:11 104 123/74 03/11/19 21:00 Nasal Cannula 2.0 03/11/19 20:00 118 03/11/19 20:00 98.0 104 20 123/74 (90) 96 03/11/19 19:42 103 18 98 Nasal Cannula 2.0 28 100 18 95 03/11/19 19:41 95 Nasal Cannula 2.0 28 03/11/19 16:00 103 03/11/19 16:00 98.0 93 20 124/78 (93) 98 03/11/19 15:23 72 18 96 Nasal Cannula 2.0 28 66 16 94 03/11/19 14:00 96 03/11/19 13:14 Nasal Cannula 2.0 28 03/11/19 12:00 98.2 76 18 112/64 (80) 97 Intake and Output 03/11/19 03/12/19 19:00 07:00 Intake Total 440 ml 120 ml Output Total 1300 ml Balance 440 ml -1180 ml Intake Oral 440 ml 120 ml Output Urine Total 1300 ml # Voids 2 # Bowel Movements 1 1 Height (Feet): 5 Height (Inches): 3.00 Weight (Pounds): 159 General Appearance: no apparent distress, obese EENT: normal ENT inspection Neck: normal alignment Cardiovascular: regularly irregular Respiratory/Chest: lungs clear, decreased breath sounds Abdomen: non tender Edema: trace edema Neurologic: motor weakness Pastor Bowen MD Mar 12, 2019 11:07
[2019-03-12 12:00] VITALS: BP 104/64
--- NOTE | 2019-03-12 13:26 | Cardiology Report ---
APPROVED REPORT EKG Measurement Heart [id number] Atrial fibrillation with rapid ventricular response Abnormal ECG
--- NOTE | 2019-03-12 13:30 | Cardiology Report ---
APPROVED REPORT EKG Measurement Heart [id number] Sinus bradycardia Otherwise normal ECG
[2019-03-12 16:00] VITALS: BP 107/60
--- NOTE | 2019-03-12 18:57 | Pulmonology Progress Note ---
Assessment/Plan Assessment/Plan PROBLEM LIST: 1. COPD without evidence of exacerbation. 2. History of paroxysmal atrial fibrillation, here with bradycardia, in and out of AFib, likely sick sinus syndrome. 3. Systemic inflammatory response syndrome and hypotension, likely secondary to medications, stable. 4. CHF without evidence of exacerbation. 5. Hypertension. 6. Hyperlipidemia. 7. CKD. 8. GERD. 9. History of prior GI bleed. TREATMENT PLAN: 1. Optimize pulmonary hygiene/mobilize as tolerated. 2. P.r.n. O2. 3. Abx 4. Qdoey-qyu-gougb and p.r.n. bronchodilators. 5. Monitor volumes and renal function, continue p.o. Lasix. 6. Follow up Cardiology recommendations. 7. DVT prophylaxis, heparin subcutaneous. 8. The patient is a Full Code. 9. Aspiration precautions. 10. Swallow evaluation. 11. The patient is Full Code. Subjective Constitutional: Reports: no symptoms HEENT: Repors: no symptoms Respiratory: Reports: no symptoms Cardiovascular: Reports: no symptoms Gastrointestinal/Abdominal: Reports: no symptoms Genitourinary: Reports: no symptoms Allergies: Coded Allergies: No Known Allergies (Unverified , 06/05/14) Subjective better today not on bipap at this time tolerating po not getting oob remaisn on o2 no cp nv or bleeding Objective Last 24 Hour Vital Signs Date Time Temp Pulse Resp B/P (MAP) Pulse Ox O2 Delivery O2 Flow Rate FiO2 03/12/19 18:42 78 16 99 Nasal Cannula 2.0 28 72 16 97 03/12/19 18:42 97 Nasal Cannula 2.0 28 03/12/19 16:00 98.6 61 18 107/60 (76) 100 03/12/19 16:00 84 03/12/19 12:46 76 20 99 Nasal Cannula 2.0 28 68 16 97 03/12/19 12:00 124 03/12/19 12:00 98.7 87 18 104/64 (77) 100 03/12/19 09:00 Nasal Cannula 2.0 03/12/19 08:44 88 110/68 03/12/19 08:00 109 03/12/19 08:00 98.5 88 20 110/68 (82) 96 03/12/19 06:37 96 Nasal Cannula 2.0 28 03/12/19 06:37 82 16 99 Nasal Cannula 2.0 28 78 16 96 03/12/19 04:00 97.4 96 20 114/57 (76) 96 03/12/19 04:00 96 03/12/19 01:20 89 18 99 Nasal Cannula 2.0 28 86 18 97 03/12/19 00:00 105 03/12/19 00:00 97.4 97 20 103/62 (76) 97 03/11/19 21:11 104 123/74 03/11/19 21:00 Nasal Cannula 2.0 03/11/19 20:00 118 03/11/19 20:00 98.0 104 20 123/74 (90) 96 03/11/19 19:42 103 18 98 Nasal Cannula 2.0 28 100 18 95 03/11/19 19:41 95 Nasal Cannula 2.0 28 Intake and Output 03/11/19 03/12/19 18:59 06:59 Intake Total 440 ml Output Total 1300 ml Balance 440 ml -1300 ml Intake Oral 440 ml Output Urine Total 1300 ml # Voids 2 # Bowel Movements 1 1 General Appearance: cachetic Respiratory/Chest: crackles/rales, rhonchi Cardiovascular: normal rate, regular rhythm, murmur systolic Abdomen: soft, non tender, no organomegaly Skin: no lesions Neurologic/Psychiatric: alert, oriented x 3 Current Medications Medications (Trade) Dose Ordered Sig/Kate Route PRN Reason Start Time Stop Time Status Last Admin Dose Admin Acetaminophen (Tylenol) 1,000 mg Q8H PRN ORAL For Pain 03/07/19 18:30 04/06/19 18:29 03/12/19 02:30 Albuterol/ Ipratropium (Albuterol/ Ipratropium) 3 ml Q4H PRN HHN Shortness of Breath 03/09/19 16:36 03/14/19 16:35 03/11/19 15:23 Albuterol/ Ipratropium (Albuterol/ Ipratropium) 3 ml Q6HRT HHN 03/09/19 19:00 03/14/19 18:59 03/12/19 18:42 Amoxicillin/ Clavulanate Potassium (Augmentin) 500 mg EVERY 8 HOURS ORAL 03/07/19 22:00 03/14/19 21:59 03/12/19 13:06 Artificial Tears (Akwa-Tears) 1 drop QID BOTH EYES 8/20/19 21:00 04/06/19 20:59 03/12/19 17:15 Aspirin (Ecotrin) 81 mg DAILY ORAL 03/08/19 09:00 04/07/19 08:59 03/12/19 08:43 Atorvastatin Calcium (Lipitor) 10 mg BEDTIME ORAL 03/07/19 21:00 04/06/19 20:59 03/11/19 21:01 Dextrose (Dextrose 50%) 25 ml Q30M PRN IV Hypoglycemia 03/07/19 18:30 04/06/19 18:29 Dextrose (Dextrose 50%) 50 ml Q30M PRN IV Hypoglycemia 03/07/19 18:30 04/06/19 18:29 Docusate Sodium (Colace) 100 mg TWICE A DAY ORAL 03/08/19 09:00 04/07/19 08:59 03/12/19 17:15 Escitalopram Oxalate (Lexapro) 5 mg DAILY ORAL 03/08/19 09:00 04/07/19 08:59 03/12/19 08:44 Furosemide (Lasix) 20 mg Q24H ORAL 03/09/19 16:00 04/08/19 15:59 03/12/19 17:15 Furosemide (Lasix) 40 mg DAILY ORAL 03/09/19 09:00 04/08/19 08:59 03/12/19 08:43 Heparin Sodium (Porcine) (Heparin 5000 units/ml) 5,000 units EVERY 12 HOURS SUBQ 03/07/19 21:00 04/06/19 20:59 03/12/19 08:47 Magnesium Hydroxide (Mom) 30 ml DAILY ORAL 03/08/19 09:00 04/07/19 08:59 03/11/19 09:07 Metoprolol Succinate (Toprol XL) 25 mg Q12HR ORAL 03/10/19 21:00 04/07/19 17:59 03/12/19 08:44 Nitroglycerin (Ntg) 0.4 mg Q5M PRN SL Prn Chest Pain 03/07/19 18:30 04/06/19 18:29 Ondansetron HCl (Zofran) 4 mg Q6H PRN IVP Nausea & Vomiting 03/07/19 18:30 04/06/19 18:29 Pantoprazole (Protonix) 40 mg DAILY ORAL 03/08/19 09:00 04/07/19 08:59 03/12/19 08:43 Polyethylene Glycol (Miralax) 17 gm DAILYPRN PRN ORAL Constipation 03/07/19 18:30 04/06/19 18:29 Keren Bernal DO Mar 12, 2019 18:56
--- NOTE | 2019-03-12 19:25 | NUR ---
NURSE NOTES: Received pt and report from [facility]. Observed pt resting in bed with both eyes open. Pt is A/Ox2-3. threat monitoring analyst is in placed, IV site intact, asymptomatic, and patent. Bed is in the lowest position and locked. Call light within reach. No signs/symptoms of acute distress noted at this time. Will continue plan of care.
--- NOTE | 2019-03-12 19:34 | NUR ---
HAND-OFF: Report given to Gena Bennett. Plan of care endorsed
[2019-03-12 20:00] VITALS: BP 115/66
[2019-03-13] VITALS: BP 109/69
[2019-03-13] MEDS: Albuterol/Ipratropium 3ml neb HHN SCH ×3 (00:41→13:23)
[2019-03-13 04:00] VITALS: BP 110/68
[2019-03-13 07:03] LABS: EOSINOPHILS % (AUTO) 1.9 % (0.0-3.0); HEMATOCRIT 36.7 % (37.0-47.0); HEMOGLOBIN 10.9 G/DL (12.0-16.0); LYMPHOCYTES % (AUTO) 18.7 % (20.0-45.0); MEAN CORPUSCULAR VOLUME 101 FL (80-99); MONOCYTES % (AUTO) 7.5 % (1.0-10.0); NEUTROPHILS % (AUTO) 70.9 % (45.0-75.0); PLATELET COUNT 406 K/UL (150-450); RED BLOOD COUNT 3.65 M/UL (4.20-5.40); RED CELL DISTRIBUTION WIDTH 19.9 % (11.6-14.8); WHITE BLOOD COUNT 13.3 K/UL (4.8-10.8)
[2019-03-13 07:38] LABS: ANION GAP 7 mmol/L (5-15); BLOOD UREA NITROGEN 19 mg/dL (7-18); CALCIUM 9.6 MG/DL (8.5-10.1); CARBON DIOXIDE 35 MMOL/L (21-32); CHLORIDE 97 MMOL/L (98-107); CREATININE 0.9 MG/DL (0.55-1.30); SODIUM 139 MMOL/L (136-145)
--- NOTE | 2019-03-13 07:46 | NUR ---
HAND-OFF: Report given to STEVEN Enrique.
--- NOTE | 2019-03-13 07:58 | NUR ---
NURSE NOTES: Received report from STEVEN Bennett. Patient in bed resting, no active s/s cardiac, respiratory distress noticed at this time. Patient on AOx3, SR with HR 90. IV on right wrist 20G, asymptomatic, patent, intact. Patient on 2L oxygen via NC. Bed in lowest position, side rails upx2, call light within reach. Will continue to monitor.
[2019-03-13 08:00] VITALS: BP 109/56
[2019-03-13] MEDS: Docusate 100mg cap ORAL SCH ×2 (08:46→18:00)
[2019-03-13] MEDS: Aspirin EC 81mg tab ORAL SCH (08:46)
[2019-03-13] MEDS: Furosemide 40mg tab ORAL SCH (08:46)
[2019-03-13] MEDS: Milk of Magnesia 30ml Ud ORAL SCH (08:47)
[2019-03-13] MEDS: Metoprolol Succinate XL 25mg tab ORAL SCH (08:47)
[2019-03-13] MEDS: Artificial Tears 1.4% Op Soln BOTH EYES SCH ×3 (08:47→18:00)
[2019-03-13] MEDS: Heparin 5000 units/ml inj SUBQ SCH (08:49)
--- NOTE | 2019-03-13 11:10 | NUR ---
CASE MANAGEMENT:REVIEW 03/13/19 SI: COPD. CHF. PAFIB. HYPOTENSION 98.7 77 20 109/56 100% ON 2L/NC IS: DUONEB HHN Q4HRS RTC LASIX PO QD ULTRAM PO TID TOPROL XL PO BID ASA PO QD LEXAPRO PO QD AUGMENTIN PO Q8HRS HEPARIN SQ Q12 : TELEMETRY STATUS DCP: FROM [facility] TO [facility] ~ ON WEDNESDAY ~ PCO2+102.9 AND 64.6 ~ BIPAP PRN WAS ORDERED
[2019-03-13 12:00] VITALS: BP 109/69
--- NOTE | 2019-03-13 12:48 | Pulmonology Progress Note ---
Assessment/Plan Assessment/Plan PROBLEM LIST: 1. COPD without evidence of exacerbation. 2. History of paroxysmal atrial fibrillation, bradycardia, parox AFib, likely sick sinus syndrome. 3. Systemic inflammatory response syndrome and hypotension, likely secondary to medications, stable. 4. CHF without evidence of exacerbation. 5. Hypertension. 6. Hyperlipidemia. 7. CKD. 8. GERD. 9. History of prior GI bleed. TREATMENT PLAN: 1. pulmonary hygiene/mobilize as tolerated. 2. P.r.n. O2. 3. Abx 4. bronchodilators. 5. p.o. Lasix. 6. Follow up Cardiology recommendations. 7. DVT prophylaxis, heparin subcutaneous. 8. The patient is a Full Code. 9. Aspiration precautions. 10. Swallow evaluation. 11. DC planning Subjective ROS Limited/Unobtainable: Yes Allergies: Coded Allergies: No Known Allergies (Unverified , 06/05/14) Objective Last 24 Hour Vital Signs Date Time Temp Pulse Resp B/P (MAP) Pulse Ox O2 Delivery O2 Flow Rate FiO2 03/13/19 12:00 96.8 71 20 109/69 (82) 97 03/13/19 09:00 Nasal Cannula 2.0 03/13/19 08:47 77 109/56 03/13/19 08:13 82 18 100 Nasal Cannula 2.0 28 78 18 98 03/13/19 08:02 98 Nasal Cannula 2.0 28 03/13/19 08:00 78 03/13/19 08:00 98.7 77 20 109/56 (73) 100 03/13/19 04:00 98 03/13/19 04:00 98.4 90 20 110/68 (82) 99 03/13/19 00:41 88 18 99 Nasal Cannula 2.0 28 84 20 98 03/13/19 00:00 98.9 98 18 109/69 (82) 99 03/13/19 00:00 86 03/12/19 21:08 97 115/66 03/12/19 21:00 Nasal Cannula 2.0 03/12/19 20:00 103 03/12/19 20:00 98.7 97 19 115/66 (82) 100 03/12/19 18:42 78 16 99 Nasal Cannula 2.0 28 72 16 97 03/12/19 18:42 97 Nasal Cannula 2.0 28 03/12/19 16:00 98.6 61 18 107/60 (76) 100 03/12/19 16:00 84 Intake and Output 03/12/19 03/13/19 19:00 07:00 Intake Total 120 ml 440 ml Output Total 600 ml Balance 120 ml -160 ml Intake Oral 120 ml 440 ml Output Urine Total 600 ml # Bowel Movements 1 General Appearance: no acute distress HEENT: normocephalic Respiratory/Chest: lungs clear, decreased breath sounds Cardiovascular: normal rate Laboratory Tests 03/13/19 05:15: White Blood Count 13.3H, Red Blood Count 3.65L, Hemoglobin 10.9L, Hematocrit 36.7L, Mean Corpuscular Volume 101H, Mean Corpuscular Hemoglobin 29.9, Mean Corpuscular Hemoglobin Concent 29.7L, Red Cell Distribution Width 19.9H, Platelet Count 406, Mean Platelet Volume 4.9L, Neutrophils (%) (Auto) 70.9, Lymphocytes (%) (Auto) 18.7L, Monocytes (%) (Auto) 7.5, Eosinophils (%) (Auto) 1.9, Basophils (%) (Auto) 1.0, Sodium Level 139, Potassium Level 5.0, Chloride Level 97L, Carbon Dioxide Level 35H, Anion Gap 7, Blood Urea Nitrogen 19H, Creatinine 0.9, Estimat Glomerular Filtration Rate , Glucose Level 89, Calcium Level 9.6 Current Medications Medications (Trade) Dose Ordered Sig/Kate Route PRN Reason Start Time Stop Time Status Last Admin Dose Admin Acetaminophen (Tylenol) 1,000 mg Q8H PRN ORAL For Pain 03/07/19 18:30 04/06/19 18:29 03/12/19 02:30 Albuterol/ Ipratropium (Albuterol/ Ipratropium) 3 ml Q4H PRN HHN Shortness of Breath 03/09/19 16:36 03/14/19 16:35 03/11/19 15:23 Albuterol/ Ipratropium (Albuterol/ Ipratropium) 3 ml Q6HRT HHN 03/09/19 19:00 03/14/19 18:59 03/13/19 08:03 Amoxicillin/ Clavulanate Potassium (Augmentin) 500 mg EVERY 8 HOURS ORAL 03/07/19 22:00 03/14/19 21:59 03/13/19 06:07 Artificial Tears (Akwa-Tears) 1 drop QID BOTH EYES 03/07/19 21:00 04/06/19 20:59 03/13/19 08:47 Aspirin (Ecotrin) 81 mg DAILY ORAL 03/08/19 09:00 04/07/19 08:59 03/13/19 08:46 Atorvastatin Calcium (Lipitor) 10 mg BEDTIME ORAL 03/07/19 21:00 04/06/19 20:59 03/12/19 21:07 Dextrose (Dextrose 50%) 25 ml Q30M PRN IV Hypoglycemia 03/07/19 18:30 04/06/19 18:29 Dextrose (Dextrose 50%) 50 ml Q30M PRN IV Hypoglycemia 03/07/19 18:30 04/06/19 18:29 Docusate Sodium (Colace) 100 mg TWICE A DAY ORAL 03/08/19 09:00 04/07/19 08:59 03/13/19 08:46 Escitalopram Oxalate (Lexapro) 5 mg DAILY ORAL 03/08/19 09:00 04/07/19 08:59 03/13/19 08:47 Furosemide (Lasix) 20 mg Q24H ORAL 03/09/19 16:00 04/08/19 15:59 03/12/19 17:15 Furosemide (Lasix) 40 mg DAILY ORAL 03/09/19 09:00 04/08/19 08:59 03/13/19 08:46 Heparin Sodium (Porcine) (Heparin 5000 units/ml) 5,000 units EVERY 12 HOURS SUBQ 03/07/19 21:00 04/06/19 20:59 03/13/19 08:49 Magnesium Hydroxide (Mom) 30 ml DAILY ORAL 03/08/19 09:00 04/07/19 08:59 03/13/19 08:47 Metoprolol Succinate (Toprol XL) 25 mg Q12HR ORAL 03/10/19 21:00 04/07/19 17:59 03/13/19 08:47 Nitroglycerin (Ntg) 0.4 mg Q5M PRN SL Prn Chest Pain 03/07/19 18:30 04/06/19 18:29 Ondansetron HCl (Zofran) 4 mg Q6H PRN IVP Nausea & Vomiting 03/07/19 18:30 04/06/19 18:29 Pantoprazole (Protonix) 40 mg DAILY ORAL 03/08/19 09:00 04/07/19 08:59 03/13/19 08:46 Polyethylene Glycol (Miralax) 17 gm DAILYPRN PRN ORAL Constipation 03/07/19 18:30 04/06/19 18:29 Gio Feng MD Mar 13, 2019 12:48
[2019-03-13] MEDS ORDERED: Metoprolol Succinate XL ORAL (15:14)
--- NOTE | 2019-03-13 15:28 | NUR ---
NURSE NOTES: Paged Dr. Bowen's office, spoke with Dalila regarding patient O2 84% on room air prior to discharge SNF on room air. Awaiting for callback. Will continue to monitor.
--- NOTE | 2019-03-13 15:40 | NUR ---
NURSE NOTES: Patient O2 sat rechecked on room air after 10 minute, O2 sat 80%, NC 2L oxygen applied. O2 sat elevated to 87%. Awaiting for Dr. Bowen's call back.
--- NOTE | 2019-03-13 15:49 | NUR ---
NURSE NOTES: Dr. Bowen made aware patient O2 sat 80% on room air after 10 minute, per Dr. Bowen, put patient on 1L oxygen when discharging. Order noted, entered, carried out.
[2019-03-13 16:00] VITALS: BP 106/60
--- NOTE | 2019-03-13 16:16 | NUR ---
DISCHARGE PLANNING PATIENT IS GOING BACK TO [facility] ROOM 113-A SKILLED T: [phone] FOR NURSE TO NURSE REPORT [facility] HAS BEEN ARRANGED FOR 1730 GUEST SERVICE REPRESENTATIVE
--- NOTE | 2019-03-13 16:30 | NUR ---
NURSE NOTES: Called [facility], tele : [phone], spoke with STEVEN Ceron and informed patient discharge to room 113-A. Nurse to Nurse report given and informed lifeline arranged at 1730.
--- NOTE | 2019-03-13 19:04 | NUR ---
NURSE NOTES: Pt received from STEVEN Enrique alert and oriented x3 with no acute s/s of distress noted. IV site asymptomatic and patent, on R wrist 20g, saline lock. Pt placed back in bed, bed alarm on. Bed in lowest position, call light and belongings within reach.
--- NOTE | 2019-03-13 19:25 | NUR ---
HAND-OFF: Report given to STEVEN Palencia.
[2019-03-13] MEDS: Acetaminophen 500mg (ES) tab ORAL PRN (19:43)
[2019-03-13 20:00] VITALS: BP 108/65
--- NOTE | 2019-03-13 20:09 | NUR ---
NURSE NOTES: Pt discharged in stable condition - VS 108/65, HR 79, 98.9 temp, 18 RR, 97% on 1L NC, with pain of 2/10 on anterior head - with ambulance personnel. Given Tylenol 650 mg PRN for relief prior to discharge. IV site d/soy and wrist band removed as per protocol. No wounds noted upon discharge. Per AM nurse, pt did not have some belongings with her upon assessment - two blankets. Per AM nurse, she contacted family who stated that they did not know if the patient brought blankets with her but that they did not take it home.
--- NOTE | 2019-03-14 16:55 | Discharge Summary ---
DATE OF ADMISSION: 03/07/2019 DATE OF DISCHARGE: 03/13/2019 PERTINENT HISTORY: The patient is an 79-year-old lady with a history of CHF, COPD, paroxysmal atrial fibrillation. At the snf facility, she developed desaturation, questionable infiltrate on chest x-ray, hypotension, bradycardia, and was sent to the emergency room. PERTINENT PHYSICAL FINDINGS: See my dictated History and Physical. GENERAL: The patient is alert, no distress. VITAL SIGNS: Temperature 99.1, pulse 72, respirations 20, blood pressure 135/57. LUNGS: Clear. HEART: Regular rhythm with an apical S4. No murmur. ABDOMEN: Soft. EXTREMITIES: Show trace edema. Moderate degenerative changes. NEUROLOGIC: She has poor memory and mild right-sided weakness. COURSE IN THE HOSPITAL: The patient was observed on the telemetry bed. She had paroxysmal atrial fibrillation and normal sinus rhythm and her bradycardia abated with adjustment of medications. She did have an abnormal blood gas with a pH of 7.26 and a pCO2 of 102.9, which improved to 7.425 and pCO2 is 64.6, with lowering her oxygen saturation and this is likely her baseline. The patient's chest x-ray was read by the radiologist. She has no active disease. She had no fever or chills. The patient's cardiac status remained stable although she had paroxysmal atrial fibrillation. Her rate was controlled. There was no severe bradycardia. On the day of discharge, she is seen at the bedside with family. LUNGS: Clear. HEART: Regular rhythm. ABDOMEN: Soft. EXTREMITIES: Show trace edema. She had no distress and she was discharged back to the ECF in stable condition. FINAL DIAGNOSES: 1. Bradycardia and tachy-tracee syndrome with sick sinus syndrome. 2. Paroxysmal atrial fibrillation. 3. COPD. 4. Acute respiratory failure with hypercarbia and hypoxemia. 5. Anemia of chronic disease. 6. History of gastritis in the past. 7. History of colonic polyps on prior hospitalization in December of this year. 8. History of prior rectal bleeding. 9. History of prior CVA with minimal right-sided weakness and cognitive dysfunction. 10. Osteoarthritis. DISCHARGE DISPOSITION: Back to the [facility] on low-salt diet. MEDICATIONS: Per the discharge medication list. FOLLOWUP: With Dr. Bowen. Pastor Bowen M.D. DR: SONIYA JOB#: [id number] CC:
--- NOTE | 2019-03-14 16:56 | Progress Note ---
DATE: 03/13/2019 CARDIOLOGY PROGRESS NOTE SUBJECTIVE: The patient continues to feel better. Denies shortness of breath at rest. OBJECTIVE: VITAL SIGNS: Blood pressure 109/69, pulse 71, and respiratory rate 20. LUNGS: With clear breath sounds. CARDIAC: Irregularly irregular rhythm. Normal S1 and S2. A 1/6 systolic murmur at apex. ABDOMEN: Soft and nontender. EXTREMITIES: Trace edema. LABORATORY DATA: White count 13 and hemoglobin 10.9. Sodium 139, potassium 5, bicarbonate 35, BUN 19, and creatinine 0.9. IMPRESSION: 1. Improving metabolic parameters. 2. Chronic obstructive pulmonary disease with no active bronchospasm. 3. Paroxysmal atrial fibrillation/flutter with rate controlled. 4. Acute on chronic diastolic congestive heart failure, now clinically compensated. 5. Hypertensive heart disease with controlled blood pressure. 6. Sinus node disease with history of bradycardia. PLAN: 1. Maintenance dose oral diuretic. Continue beta-blockade. At a [facility] facility, the patient will be closely monitored for bleeding complications and will be started on cardioembolic prophylaxis with dose adjusted Eliquis (apixaban). Aspirin will be discontinued to decrease bleeding risk at this time. 2. Close monitoring of mental status as a micro for hypercarbia in the future. Avoid diltiazem in view of history of bradycardia while in sinus rhythm. Jan Moreno M.D. DRMarisol SCOTT JOB#: [id number] CC:
== END 2019-03-13 20:09 | DRG 308 ==
LOC: EDBD 14:37 → EDBEDREQ 14:51 → EMR 15:17 → 2E 15:25 → EDBEDREQ 16:33 → EDBEDREQSVC 16:33 → EDBEDREQ 17:08
DX: I49.5 Sick sinus syndrome (principal); I50.33 Acute on chronic diastolic (congestive) heart failure; E44.1 Mild protein-calorie malnutrition; I13.0 Hypertensive heart and chronic kidney disease with heart failure and stage 1 through stage 4 chronic kidney disease, or unspecified chronic kidney disease; I69.351 Hemiplegia and hemiparesis following cerebral infarction affecting right dominant side; R65.10 Systemic inflammatory response syndrome (SIRS) of non-infectious origin without acute organ dysfunction; E87.2 Acidosis; I95.2 Hypotension due to drugs; I48.0 Paroxysmal atrial fibrillation; E87.5 Hyperkalemia; J44.9 Chronic obstructive pulmonary disease, unspecified; Z87.891 Personal history of nicotine dependence; E11.22 Type 2 diabetes mellitus with diabetic chronic kidney disease; N18.9 Chronic kidney disease, unspecified; I25.5 Ischemic cardiomyopathy; K21.9 Gastro-esophageal reflux disease without esophagitis; E78.5 Hyperlipidemia, unspecified; M19.90 Unspecified osteoarthritis, unspecified site; I27.20 Pulmonary hypertension, unspecified; I69.319 Unspecified symptoms and signs involving cognitive functions following cerebral infarction
CPT/HCPCS: 36415; 36600; 71045; 80048; 80053; 81001; 81003; 82550; 82553; 82728; 82803; 83540; 83550; 83605; 83690; 83735; 83880; 84100; 84443; 84484; 85025; 85610; 85730; 87040; 87081; 87086; 93005; 93306; 94640; 94664; 96360; 99285; J7620

== ENCOUNTER 2019-04-19 10:50 | Inpatient (IN) | payer MEDICARE, MEDICAID ==
[2019-04-19] VITALS (26 sets, daily range): BP systolic 51–124; BP diastolic 38–100
[~2019-04-19] VITALS: Ht 165.1 cm; Wt 67.4 kg
[~2019-04-19 10:50] MED LIST changes: +AUGMENTIN 500-1 EACH ORAL; +LOSARTAN POTASS25 MG ORAL; +Metoprolol Succinate XL ORAL; +QVAR7.3 GM INH; +SENNOSIDES8.6 MG ORAL; +VENTOLIN HFA18 GM INH
--- NOTE | 2019-04-19 10:51 | NUR ---
ED Nurse Note: arrives via [facility] from [facility] for c/o resp disress, fever at [facility]cf and noted to have hypotension and decreased o2 saturaton of 68% on room air. 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 md at bs and aware of vs. pt with labs and iv start and with patent iv site placed by lafd. pt is awake and alert, responds to questions well. denies pain. md aware of ecg. admission swabs obtained.
--- NOTE | 2019-04-19 10:52 | NUR ---
ED Nurse Note: Patient was brought in by RA 2 complaining of SOB. Noted patient alert and oriented and able to responds with verbal and pain. Able to follow commands. Lungs sounds noted with ronchi. Noted with low blood pressure upon arival with 95% 02 sat with 2l of O2 via NC.
[2019-04-19] MEDS ORDERED: Vancomycin 1.5gm/NS Premix 275 ML IVPB ONE (11:00)
[2019-04-19] MEDS ORDERED: Ampicillin/Sulbactam Sod 3 GM in NS 110 ML IVPB ONE (11:00)
[2019-04-19] MEDS ORDERED: Sodium Chloride 2,200 ML IVLG ONE (11:00)
[2019-04-19 11:27] LABS: ANION GAP 5 mmol/L (5-15); BLOOD UREA NITROGEN 20 mg/dL (7-18); CALCIUM 8.6 MG/DL (8.5-10.1); CARBON DIOXIDE 32 MMOL/L (21-32); CHLORIDE 104 MMOL/L (98-107); CREATININE 1.6 MG/DL (0.55-1.30); SODIUM 141 MMOL/L (136-145)
--- NOTE | 2019-04-19 11:30 | NUR ---
ED Nurse Note: pt tolerates hicks placement for urine sample. vs improving as noted. pt remains alert
[2019-04-19] MEDS ORDERED: Unasyn 1.5gm Vial ONE (11:35)
[2019-04-19] MEDS ORDERED: NS 110 ML ONE (11:35)
--- NOTE | 2019-04-19 11:41 | Diagnostic Imaging Report ---
Indication: Dyspnea Comparison: 03/10/2019 A single view chest radiograph was obtained. Findings: No definite infiltrate or pulmonary vascular congestion identified. The heart is enlarged. The aorta is mildly enlarged consistent with atherosclerotic vascular disease. The bones are osteopenic. Impression: No acute disease
[2019-04-19 11:42] LABS: ALANINE AMINOTRANSFERASE 20 U/L (12-78); ALBUMIN 2.6 G/DL (3.4-5.0); ALBUMIN/GLOBULIN RATIO 0.6 (1.0-2.7); ALKALINE PHOSPHATASE 110 U/L (46-116); ASPARTATE AMINO TRANSFERASE 31 U/L (15-37); BILIRUBIN,TOTAL 0.3 MG/DL (0.2-1.0); CKMB 1.2 NG/ML (0.0-3.6); CREATINE KINASE 89 U/L (26-308); PHOSPHORUS 3.3 MG/DL (2.5-4.9)
[2019-04-19 11:54] LABS: APPEARANCE,URINE CLOUDY; BILIRUBIN, URINE NEGATIVE (NEGATIVE); GLUCOSE, URINE (UA) NEGATIVE (NEGATIVE); KETONES,URINE NEGATIVE (NEGATIVE); LEUKOCYTE ESTERASE ,URINE 3+ (NEGATIVE); NITRITE,URINE NEGATIVE (NEGATIVE); PH,URINE 7 (4.5-8.0); PROTEIN,URINE 3+ (NEGATIVE); UROBILINOGEN,URINE 1 MG/DL (0.0-1.0)
[2019-04-19 11:56] LABS: COLOR,URINE YELLOW
--- NOTE | 2019-04-19 11:59 | NUR ---
ED Nurse Note: pt able to tolerate po meds well. denies c/o toelrates ivf bolus without increased dyspnea. abx therapy infusing as noted after all labs obtained.
[2019-04-19 12:00] LABS: BASOPHILS % (AUTO) 0.4 % (0.0-2.0); EOSINOPHILS % (AUTO) 0.1 % (0.0-3.0); HEMATOCRIT 35.2 % (37.0-47.0); HEMOGLOBIN 10.4 G/DL (12.0-16.0); LYMPHOCYTES % (AUTO) 10.6 % (20.0-45.0); MEAN CORPUSCULAR VOLUME 104 FL (80-99); MONOCYTES % (AUTO) 8.6 % (1.0-10.0); NEUTROPHILS % (AUTO) 80.3 % (45.0-75.0); PLATELET COUNT 274 K/UL (150-450); RED BLOOD COUNT 3.38 M/UL (4.20-5.40); RED CELL DISTRIBUTION WIDTH 17.3 % (11.6-14.8); WHITE BLOOD COUNT 12.4 K/UL (4.8-10.8)
--- NOTE | 2019-04-19 12:53 | NUR ---
ED Nurse Note: pt tolerates abg draw by resp well. md aware of results and resp therapist to place pt on bipap
--- NOTE | 2019-04-19 13:00 | NUR ---
ED Nurse Note: repeat lactic drawn and sent. md aware of bp/p after ns bolus completed.
--- NOTE | 2019-04-19 13:36 | NUR ---
ED Nurse Note: belongings list done. awiaitng icu bed assignment. pt remains arouseable to verbal stimuli. tolerates bipap wll.
--- NOTE | 2019-04-19 14:14 | NUR ---
ED Nurse Note: ICU CALLED FOR PT REPORT. REPORT GIVEN TO STEVEN CHENEY. RN READY TO ACCEPT PT. PT WILL BE TAKEN UP SHORTLY.
--- NOTE | 2019-04-19 15:12 | NUR ---
NURSE NOTES: Received the patient from STEVEN Moreno. Patient is lethargic, unable to answer questions. Patient on bipap 12/5 FIO2 40%. O2 sat 94%. SR noted on cafeteria monitor. BP 124/100. afebrile. Left hand 18G and right hand 18G intact, running vanco from ER. Ramirez cath intact, draining yellow urine by gravity. Dry abrasion with scab noted on left wrist. Bed in lowest position, locked, side rails upx3. Bed alarm on. Call light within reach. Will continue to monitor. Addendum: 04/19/19 at 1645 by NONI GARCIA RN patient is lethargic, responds to pain.
--- NOTE | 2019-04-19 15:27 | NUR ---
NURSE NOTES: Message left at Dr. Bowen voice mail- regarding patient admission to ICU- updated with patient's condition
--- NOTE | 2019-04-19 15:50 | NUR ---
NURSE NOTES: Dr. Bowen called back. updated on pt's condition, and low BP. Admitting orders received. Dr. Bowen to see the patient later and order DVT prophylaxis.
--- NOTE | 2019-04-19 16:40 | NUR ---
NURSE NOTES: Patient seen by Dr. Feng. Breathing treatment ordered. Pt for ABG in am.
--- NOTE | 2019-04-19 16:48 | NUR ---
NURSE NOTES: Kaiser Mckenzie ( son) notified of patient admission to [facility] ICU room 246-H. Updated with patient's condition.
--- NOTE | 2019-04-19 16:55 | Consultation ---
Consult Note Assessment/Plan REASON FOR CONSULTATION: COPD and sepsis HISTORY OF PRESENT ILLNESS: The patient is an 79-year-old female, former smoker, [facility] resident with a history of CHF, COPD, GERD, paroxysmal AFib, prior stroke, hypertension, hyperlipidemia, and dementia who was brought in by EMS from the facility with low blood pressure as well as shortness of breath. She was desaturating and there is a UTI with sepsis. She was started on BiPAP and then given low blood pressure, was brought into the ICU. She has chronic hypercapnia. PAST MEDICAL HISTORY: 1. CHF. 2. Paroxysmal atrial fibrillation. 3. Hypertension. 4. Hyperlipidemia. 5. CVA. 6. CAD. 7. Baseline right hemiparesis. 8. Hypertension. 9. Hyperlipidemia. 10. Diabetes. 11. CKD. 12. GERD. 13. Osteoarthritis. 14. Valvular heart disease. 15. Pulmonary hypertension. 16. COPD with hypercapnia ALLERGIES: No known drug allergies. MEDICATIONS: Prior to admission medications reviewed. Current medications reviewed. SOCIAL HISTORY: She is a [employer] resident. Former smoker. FAMILY HISTORY: Noncontributory. REVIEW OF SYSTEMS: unable PHYSICAL EXAMINATION: VITAL SIGNS: Temperature 98.7, pulse 88, blood pressure 70s systolic, improved after IVF, saturating 93% on BIPAP GENERAL: She is an elderly female, in no acute distress. Poorly responsive HEENT: Normocephalic and atraumatic. Oropharynx is clear with moist mucous membranes. NECK: Supple without lymphadenopathy or JVD. CHEST: Clear to auscultation bilaterally. No wheezing, rales, or rhonchi. Air entry is poor. HEART: Regular rhythm. No murmurs, rubs, or gallops. ABDOMEN: Soft and nondistended. EXTREMITIES: No cyanosis, clubbing, or edema. ANCILLARY DATA: lactate is high. UA many WBC. PCO2 72, pH 7.22, PO2 94 ASSESSMENT: The patient is an 79-year-old female, [facility] resident with a history of COPD, CHF, hypertension, hyperlipidemia, paroxysmal atrial fibrillation, CKD, GERD, admitted with hypotension and UTI causing sepsis with shock. PROBLEM LIST: 1. COPD with respiratory failure on BiPAP. 2. Sick sinus syndrome. 3. Septic shock due to UTI 4. CHF 5. Hypertension. 6. Hyperlipidemia. 7. CKD. 8. GERD. 9. History of prior GI bleed. TREATMENT PLAN: 1. continue BiPAP, ABG AM 2. Adbge-mea-sxgwm and p.r.n. bronchodilators. 3. Antibiotics 4. Aspiration precautions. 5. DVT prophylaxis, heparin subcutaneous. 6. The patient is a Full Code. Gio Feng MD Apr 19, 2019 16:55
--- NOTE | 2019-04-19 18:30 | NUR ---
NURSE NOTES: Patient is resting in bed. No acute distress noted. Patient on bipap, O2 sat 99%, still lethargic, response to painful stimuli. On End tidal CO2 monitor, 45-50mmHg. SR noted on quality assurance monitor.
[2019-04-19] MEDS ORDERED: Albuterol/Ipratropium 3ml neb HHN SCH (19:00)
--- NOTE | 2019-04-19 19:24 | NUR ---
NURSE NOTES: Dr. Bowen at bedside to assess the patient. MD updated on pt's condition.
--- NOTE | 2019-04-19 19:25 | NUR ---
HAND-OFF: Report given to STEVEN Galaviz. Unable to collect sputum culture during this shift. Endorsed to follow up.
[2019-04-19] MEDS ORDERED: Miralax 17gm pkt ORAL PRN (19:30)
[2019-04-19] MEDS ORDERED: Milk of Magnesia 30ml Ud ORAL PRN (19:30)
--- NOTE | 2019-04-19 19:30 | NUR ---
NURSE NOTES: Received pt in no apparent distress; awake, alert, orientedx4; follow commands. Currently denies any pain, denies SOB. Son at the bedside. Pt on the Bipap at 12/5; fiO2. 40 saturating 100%. Chest sounds diminished at the bases. Occcasionally spits out white frothy sputum. Afebrile, BP stable, NSR on the scope. PIV site on right hand patent with IVF of 1/2NS running at 100ml/h. Skin warm, dry and intact. FC patent, draining clear light janae urine. Dr Bowen here saw patient and wrote some orders. Will continue to monitor pt for signs of respiratory distress. Fall precautions in place.
[2019-04-19] MEDS ORDERED: Meropenem 1 GM in NS 55 ML IVPB SCH (20:00)
[2019-04-19] MEDS: Eliquis 2.5mg tablet ORAL SCH (20:17)
--- NOTE | 2019-04-19 20:40 | Emergency Room Report ---
History of Present Illness General Chief Complaint: Dyspnea/Respdistress Source: Patient, Medical Record Present Illness HPI Patient is an 79-year-old female sent in from [facility] for decreased blood pressure as well as increased difficulty with respirations. Patient had prior history of COPD as well as recent hospitalization for pneumonia. She was noted to have previously been CO2 retaining. Patient denies any severe pain at this time. She reports having some generalized body aches. Patient had onset of symptoms reportedly this morning. She was noted to be hypotensive by EMS and was started on IV fluids. Patient was noted to be febrile at the nursing facility prior records showed some infection with strep pneumonia. Allergies: Coded Allergies: No Known Allergies (Unverified , 06/05/14) Patient History Past Medical History: see triage record Reviewed Nursing Documentation: PMH: Agreed; PSxH: Agreed Nursing Documentation-PMH Past Medical History: No History, Except For Hx Pacemaker: Yes Hx COPD: Yes Hx Cancer: No Hx Gastrointestinal Problems: Yes - GERD, GI hemorrhage Hx Neurological Problems: Yes - Rt. side Hemiplegia Hx Cerebrovascular Accident: Yes Hx Paralysis: Yes Hx Weakness: Yes Review of Systems All Other Systems: limited - by poor historian Physical Exam Vital Signs Date Time Temp Pulse Resp B/P (MAP) Pulse Ox O2 Delivery O2 Flow Rate FiO2 04/19/19 10:50 99.0 137 20 88/50 (63) 99 Room Air 04/19/19 11:00 2.0 04/19/19 13:00 55 Sp02 EP Interpretation: abnormal General Appearance: alert, Chronically Ill Neck: limited range of motion Respiratory: lungs clear, normal breath sounds, other - tachypneic Cardiovascular #1: irregularly irregular Gastrointestinal: normal inspection, soft Genitourinary: normal inspection Musculoskeletal: decreased range of motion Neurologic: alert, responsive, cattle knocker III-XII nml as tested, motor weakness Psychiatric: normal inspection Skin: normal color Procedures Critical Care Time Critical Care Time Patient had a critical medical condition which untreated could potentially result in life or limb threatening injury. Total critical care time excluding procedures approximately 45 minutes. Medical Decision Making Diagnostic Impression: Primary Impression: Septic shock Additional Impressions: COPD (chronic obstructive pulmonary disease) Urinary tract infection Respiratory acidosis Atrial fibrillation CHF (congestive heart failure) ER Course Patient presented for fever and low blood pressure. Differential diagnosis included wasn't limited to pneumonia, urinary tract infection, drug fever, allergic reaction, sepsis, cholecystitis, among others.Because of patients complexity, laboratory tests and imaging studies were ordered Blood cultures were obtained and patient was started on IV fluids and IV antibiotics. Patient was started on IV fluid boluses due to hypotension and presumed septic shock. She was started on broad spectrum antibiotics. Patient was reassessed at 1400:00 and was noted to have improved skin perfusion, cap refill was less than 2 seconds, heart rate and blood pressure were improved. Patient did not require pressors in the emergency department. Arterial blood gas showed some elevation of CO2 and patient was started on Bipap. Patient was noted to be protecting her airway adequately. Repeat lactic acid was also improved Patient was discussed with Dr. Pastor Bowen who agreed to admit the patient. Patient is currently in critical condition. Labs Test 04/19/19 11:10 04/19/19 11:30 04/19/19 12:23 04/19/19 13:00 White Blood Count 12.4 K/UL (4.8-10.8) Red Blood Count 3.38 M/UL (4.20-5.40) Hemoglobin 10.4 G/DL (12.0-16.0) Hematocrit 35.2 % (37.0-47.0) Mean Corpuscular Volume 104 FL (80-99) Mean Corpuscular Hemoglobin 30.7 PG (27.0-31.0) Mean Corpuscular Hemoglobin Concent 29.5 G/DL (32.0-36.0) Red Cell Distribution Width 17.3 % (11.6-14.8) Platelet Count 274 K/UL (150-450) Mean Platelet Volume 5.6 FL (6.5-10.1) Neutrophils (%) (Auto) 80.3 % (45.0-75.0) Lymphocytes (%) (Auto) 10.6 % (20.0-45.0) Monocytes (%) (Auto) 8.6 % (1.0-10.0) Eosinophils (%) (Auto) 0.1 % (0.0-3.0) Basophils (%) (Auto) 0.4 % (0.0-2.0) Sodium Level 141 MMOL/L (136-145) Potassium Level 5.0 MMOL/L (3.5-5.1) Chloride Level 104 MMOL/L (98-107) Carbon Dioxide Level 32 MMOL/L (21-32) Anion Gap 5 mmol/L (5-15) Blood Urea Nitrogen 20 mg/dL (7-18) Creatinine 1.6 MG/DL (0.55-1.30) Estimat Glomerular Filtration Rate mL/min (>60) Glucose Level 133 MG/DL (74-106) Calcium Level 8.6 MG/DL (8.5-10.1) Phosphorus Level 3.3 MG/DL (2.5-4.9) Magnesium Level 1.9 MG/DL (1.8-2.4) Total Bilirubin 0.3 MG/DL (0.2-1.0) Aspartate Amino Transf (AST/SGOT) 31 U/L (15-37) Alanine Aminotransferase (ALT/SGPT) 20 U/L (12-78) Alkaline Phosphatase 110 U/L (46-116) Total Creatine Kinase 89 U/L (26-308) Creatine Kinase MB 1.2 NG/ML (0.0-3.6) Creatine Kinase MB Relative Index 1.3 Troponin I 0.287 ng/mL (0.000-0.056) Total Protein 7.1 G/DL (6.4-8.2) Albumin 2.6 G/DL (3.4-5.0) Globulin 4.5 g/dL Albumin/Globulin Ratio 0.6 (1.0-2.7) Urine Color Yellow Urine Appearance Cloudy Urine pH 7 (4.5-8.0) Urine Specific Brewster 1.010 (1.005-1.035) Urine Protein 3+ (NEGATIVE) Urine Glucose (UA) Negative (NEGATIVE) Urine Ketones Negative (NEGATIVE) Urine Blood 4+ (NEGATIVE) Urine Nitrite Negative (NEGATIVE) Urine Bilirubin Negative (NEGATIVE) Urine Urobilinogen 1 MG/DL (0.0-1.0) Urine Leukocyte Esterase 3+ (NEGATIVE) Urine RBC 20-30 /HPF (0 - 2) Urine WBC Tntc /HPF (0 - 2) Urine Squamous Epithelial Cells Many /LPF (NONE/OCC) Urine Bacteria Moderate /HPF (NONE) Arterial Blood pH 7.226 (7.350-7.450) Arterial Blood Partial Pressure CO2 71.9 mmHg (35.0-45.0) Arterial Blood Partial Pressure O2 93.9 mmHg (75.0-100.0) Arterial Blood HCO3 29.2 mmol/L (22.0-26.0) Arterial Blood Oxygen Saturation 94.8 % (95-100) Arterial Blood Base Excess 0.6 (-2-2) Hal Test Positive Lactic Acid Level 1.50 mmol/L (0.66-2.22) EKG Diagnostic Results Rate: normal Rhythm: other - atrial fibrillation normal rate Chest X-Ray Diagnostic Results Chest X-Ray Diagnostic Results : Chest X-Ray Ordered: Yes # of Views/Limited/Complete: 1 View Indication: Shortness of Breath EP Interpretation: No Interpretation: no consolidation, no effusion, no pneumothorax, no acute cardiopulmonary disease Impression: No acute disease Reevaluation Time: 14:00 Last Vital Signs Date Time Temp Pulse Resp B/P (MAP) Pulse Ox O2 Delivery O2 Flow Rate FiO2 04/19/19 19:01 73 16 100 Full Face 40 73 16 100 Bi-Pap 40 04/19/19 19:00 124/77 (93) 04/19/19 15:15 98.7 04/19/19 14:09 2.0 Status: improved Disposition: ADMITTED INPATIENT Condition: Critical Referrals: Pastor Bowen MD (PCP) Santy Sánchez MD Apr 19, 2019 20:40
[2019-04-19] MEDS: Qvar 40mcg Inhaler 6.8 gm INH SCH (21:17)
--- NOTE | 2019-04-19 21:30 | NUR ---
NURSE NOTES: Pt can have clear liquids po. Took meds without any evidence of choking.Swallows without any difficulty
[2019-04-19] MEDS: Metoprolol 25mg tab ORAL SCH (21:58)
--- NOTE | 2019-04-19 22:15 | History and Physical Report ---
DATE OF ADMISSION: 04/19/2019 CHIEF COMPLAINT/REASON FOR HOSPITALIZATION: The patient admitted with fever, pyuria, hypotension. HISTORY OF PRESENT ILLNESS: The patient is well known to me. She has a history of COPD, CHF, CO2 retention, prior CVA, paroxysmal atrial fibrillation. She developed high fever over 102 and hypotension. She presented to the emergency room with hypotension. Blood pressure is improving with fluids and IV antibiotics. She is having some dysuria on this admission, which is recent. She had a negative UA recently. She has had multiple hospitalizations for exacerbation of COPD and atrial fibrillation. ALLERGIES: None known. PAST SURGICAL HISTORY: Carotid endarterectomy and foot surgeries. MEDICATIONS: Include Tylenol 650 q.4 h. p.r.n., albuterol inhalation q.4 h., apixaban 2.5 mg b.i.d., atorvastatin 10 mg at bedtime, beclomethasone two puffs two times a day, Artificial Tears p.r.n., DSS 100 mg b.i.d., furosemide 20 mg in the afternoon and 40 mg in the morning, gabapentin 300 mg at bedtime, Lexapro 5 mg daily, milk of magnesia p.r.n., MiraLAX p.r.n., omeprazole 40 mg daily, potassium 20 mEq daily, ProStat 30 mL b.i.d., senna one tablet daily, Ventolin inhaler p.r.n. HABITS: She is a smoker most of her adult life, quit a few years ago. SOCIAL HISTORY: She lives . CODE STATUS: Full code confirmed with the family. SYSTEM REVIEW: HEAD, EYES, EARS, NOSE, AND THROAT: There is mild hearing impairment. Vision is good. ENDOCRINE: No diabetes or thyroid disease, but she has had glucose intolerance with high-dose steroids. PULMONARY: Severe COPD with intermittent bronchospasm and CO2 retention and hypoxemia. CARDIAC: History of hypertension, prior [place], paroxysmal atrial fibrillation, CHF. GASTROINTESTINAL: She has had gastritis in the past and GI bleed while on apixaban. GENITOURINARY: She is incontinent of the urine. NEUROLOGIC: CVA in the past with some cognitive impairment and mild right-sided weakness. MUSCULOSKELETAL: History of zihfqhag-hl-[id number] osteoarthritis of the knees. PHYSICAL EXAMINATION: GENERAL: The patient is alert, on BiPAP, seen in the ICU. VITAL SIGNS: Pulse 72, respirations 16, blood pressure 108/62, temperature 98.7 and 101.9 rectal in the emergency room. HEAD, EYES, EARS, NOSE, AND THROAT: She is wearing a BiPAP mask. Sclerae are nonicteric. Ocular motions intact in all directions. NECK: No adenopathy. LUNGS: Few faint wheezes. No distress. HEART: Rhythm is regular. I hear no murmur. ABDOMEN: Soft without organomegaly or masses. EXTREMITIES: No edema, cyanosis, or clubbing. There are degenerative changes in the knees. NEUROLOGIC: She is alert and responsive. Ocular motions intact in all directions. There is some asymmetry of her smile. She moves all extremities. It is hard to assess strength. LABORATORY AND DIAGNOSTIC DATA: Pertinent labs from the ER, white count 12.4, hemoglobin is 10.4. Sodium 141, potassium 5, BUN 20, creatinine 1.6, glucose 133, lactic acid 2.3 and 1.5, troponin 0.287. Urinalysis shows too numerous to count white cells and 20 to 30 red cells by high-power field. PH 7.226, pCO2 71.9, pO2 93.9. Chest x-ray is negative. IMPRESSION: 1. Sepsis, likely from pyelonephritis and UTI at risk for ESBL, as she lives in a halfway. 2. COPD with exacerbation. 3. Acute on chronic respiratory failure with hypoxemia and hypercarbia. 4. Chronic diastolic and systolic CHF. 5. Paroxysmal atrial fibrillation. 6. History of prior CVA. PLAN: ICU orders are given. We will give her broad-spectrum antibiotics. Hydrate cautiously. BiPAP until she is stabilized. Monitor blood pressure and clinical signs closely. The patient is at high risk. Pastor Bowen M.D. DR: GIANNI JOB#: [id number] CC:
[2019-04-19] MEDS: Albuterol ud Inhalation HHN SCH (22:36)
[2019-04-20] VITALS (23 sets, daily range): BP systolic 89–112; BP diastolic 45–74
--- NOTE | 2019-04-20 | NUR ---
NURSE NOTES: Remains awake, alert and able to make needs known. Denies pain, denies SOB. c/o hunger. Afebrile.
--- NOTE | 2019-04-20 02:00 | NUR ---
NURSE NOTES: Sleeps on and off. No distress noted. VSS. Denies pain, denies SOB
[2019-04-20] MEDS: Albuterol ud Inhalation HHN SCH ×6 (03:06→23:09)
[2019-04-20 04:24] LABS: BASOPHILS % (AUTO) 0.3 % (0.0-2.0); EOSINOPHILS % (AUTO) 0.6 % (0.0-3.0); HEMATOCRIT 29.2 % (37.0-47.0); HEMOGLOBIN 8.6 G/DL (12.0-16.0); LYMPHOCYTES % (AUTO) 21.5 % (20.0-45.0); MEAN CORPUSCULAR VOLUME 105 FL (80-99); MONOCYTES % (AUTO) 17.2 % (1.0-10.0); NEUTROPHILS % (AUTO) 60.4 % (45.0-75.0); PLATELET COUNT 245 K/UL (150-450); RED BLOOD COUNT 2.79 M/UL (4.20-5.40); RED CELL DISTRIBUTION WIDTH 17.8 % (11.6-14.8); WHITE BLOOD COUNT 10.6 K/UL (4.8-10.8)
[2019-04-20 05:02] LABS: ANION GAP 4 mmol/L (5-15); BLOOD UREA NITROGEN 18 mg/dL (7-18); CALCIUM 7.9 MG/DL (8.5-10.1); CARBON DIOXIDE 30 MMOL/L (21-32); CHLORIDE 107 MMOL/L (98-107); CREATININE 1.3 MG/DL (0.55-1.30); POTASSIUM 4.4 MMOL/L (3.5-5.1); SODIUM 141 MMOL/L (136-145)
[2019-04-20] MEDS: Piperacillin/Tazobactam 3.375 GM in NS 110 ML IVPB SCH ×3 (05:30→22:51)
--- NOTE | 2019-04-20 06:34 | NUR ---
NURSE NOTES: Afebrile, NSR. Complete bed bath done. Skin remains dry and intact. PIV site on right hand patent; hep lock on left hand intact. FC patent. No BM. VSS. Denies pains, denies SOB.
--- NOTE | 2019-04-20 07:08 | NUR ---
HAND-OFF: Report given to Pierce HARRIS.
--- NOTE | 2019-04-20 07:09 | NUR ---
NURSE NOTES: RECEIVED PATIENT FROM Gertrudis SCHULTZ RN. PATIENT IS LYING IN BED. AWAKE ALERT AND RESPONSIVE. HOOKED TO SOLE LEVELER MACHINE. HR OF 74. DENIES ANY PAIN OF THE MOMENT. ON BIPAP AT 12/5, AT 40%. NO SIGNS OF DISTRESS OF THE MOMENT. URIAS CONNECTED TO BAG, PATENT AND DRAINING YELLOW URINE. CALL LIGHT WITHIN REACH. SIDE RAILS UP. BED AT LOWEST POSITION. WILL CONTINUE TO MONITOR.
--- NOTE | 2019-04-20 07:45 | Consultation ---
DATE OF CONSULTATION: 04/19/2019 CONSULTING PHYSICIAN: Jan Moreno M.D. REQUESTING PHYSICIAN: Pastor Bowen M.D. REASON FOR CONSULTATION: Shock in the setting of advanced cardiovascular disease. HISTORY OF PRESENT ILLNESS: This 79-year-old female, residing in a [facility] facility, was brought into the emergency room with low range blood pressure and increasing shortness of breath. Her laboratory workup was notable for an acute urinary infection with signs of sepsis and early respiratory failure. She has advanced cardiovascular disease including paroxysmal atrial fibrillation and congestive heart failure. As such, I have been asked to participate in her care. PAST MEDICAL HISTORY: Paroxysmal atrial fibrillation; diastolic congestive heart failure; hypertensive heart disease; coronary atherosclerosis; cerebrovascular disease with right hemiparesis; hyperlipidemia; type 2 diabetes mellitus, on insulin; chronic kidney disease due to diabetic nephropathy; gastroesophageal reflux disease; osteoarthritis; pulmonary hypertension; COPD; history of hypercapnia; chronic respiratory acidosis; and degenerative valve disease. ALLERGIES: None. MEDICATIONS: Reviewed and reconciled. FAMILY HISTORY: Noncontributory. SOCIAL HISTORY: Notable for prior smoker 40 to 50 pack years, quit about a year ago. No alcohol or substance abuse. REVIEW OF SYSTEMS: Not obtainable from the patient at this time. However, prior hospitalization in February 2019 was reviewed and pertinent data outlined above. PHYSICAL EXAMINATION: VITAL SIGNS: Initial blood pressure 70 systolic, now 105/70; heart rate in the 80 to 100; and respiratory rate is 18. The patient is afebrile. LUNGS: On BiPAP mask. Accessory muscle use. Diminished breath sounds with rhonchi. HEART: Regular rhythm and rate. Normal S1 and S2. Frequent ectopic beats. ABDOMEN: Soft. EXTREMITIES: No edema. Right-sided paresis. LABORATORY DATA: White count 12.4 and hemoglobin 10.4. Sodium 141, potassium 5, bicarbonate 32, BUN 20, creatinine 1.6, and glucose 133. LACTIC ACID: 1. 2.3. 2. 1.5. Troponin 0.287. Albumin 2.6. ABG - 7.23, 72, and 94. IMPRESSION: 1. Sepsis with shock. 2. Lactic acidosis. 3. Acute on chronic respiratory acidosis. 4. Respiratory failure. 5. Acute and chronic diastolic congestive heart failure. 6. Acute myocardial ischemia and possible [id number] myocardial infarction. 7. Paroxysmal atrial fibrillation. 8. Pulmonary hypertension. 9. COPD. 10. Chronic kidney disease. 11. Critical and guarded. PLAN: 1. ICU monitoring. 2. Hold diuretics. 3. Cautious volume support. 4. BiPAP support. 5. Monitor acid-base parameters. 6. Serial troponin levels. 7. Hold antihypertensives and antianginals for blood pressure parameters and are stable. 8. DVT and stress ulcer prophylaxis. 9. Antimicrobials have already been initiated. Jan Moreno M.D. DR: SONIA JOB#: [id number] CC:
[2019-04-20] MEDS ORDERED: Vancomycin 1gm/D5W 275ml IVPB ONE ×2 (08:00)
--- NOTE | 2019-04-20 08:00 | NUR ---
NURSE NOTES: PLACED ON 2L NC. SATING AT 100. NO SIGNS OF DISTRESS OF THE MOMENT. WILL CONTINUE TO MONITOR.
[2019-04-20] MEDS: Metoprolol 25mg tab ORAL SCH ×2 (08:37→20:54)
[2019-04-20] MEDS: Eliquis 2.5mg tablet ORAL SCH ×2 (08:37→17:26)
[2019-04-20] MEDS: Qvar 40mcg Inhaler 6.8 gm INH SCH ×3 (08:38→21:06)
[2019-04-20] MEDS: Docusate 100mg cap ORAL SCH ×2 (08:38→17:27)
[2019-04-20] MEDS ORDERED: Furosemide 40mg tab ORAL SCH ×2 (09:00)
[2019-04-20] MEDS ORDERED: Sennosides 8.6mg tab ORAL SCH (09:00)
[2019-04-20] MEDS: Acetaminophen 500mg (ES) tab ORAL PRN ×2 (09:28→20:57)
--- NOTE | 2019-04-20 10:11 | NUR ---
NURSE NOTES: ABG RESULT RELAYED TO DR JEFFERY. BIPAP PRN. COLLECTED SPUTUM FOR C/S. WILL CONTINUE TO MONITOR.
--- NOTE | 2019-04-20 10:51 | NUR ---
Social Service Note Patient is a long-term resident of [facility] 08/2016. POLST completed by patient's son Kaiser Mckenzie 02/2019 indicating Full code, Full treatment and penitentiary artificial nutrition. SW spoke with patient's son and confirmed code status. Son is the primary gate person, however if unavailable patient's dgts Angela Mckenzie [phone], Barbara Sigala [phone] or Missy Maacrio [phone] can be contacted. Patient will continue to require penitentiary placement upon discharge. Will continue to monitor and assist as needed.
--- NOTE | 2019-04-20 12:30 | NUR ---
NURSE NOTES: FED PATIENT BUT EATEN HALF OF THE TRAY. ABLE TO SWALLOW PILLS. NO SIGNS OF DISTRESS. WILL CONTINUE TO MONITOR.
--- NOTE | 2019-04-20 13:30 | NUR ---
NURSE NOTES: SEEN AND EXAMINED BY DR MILLS WITH NEW ORDER. PATIENT TOLERATED 2L NC. NO SIGNS OF DISTRESS OF THE MOMENT. WILL CONTINUE TO MONITOR.
[2019-04-20] MEDS ORDERED: Tubing IV Secondary IV ONE (14:39)
[2019-04-20] MEDS ORDERED: 1/2 NS 1000ml IV ONE (14:39)
--- NOTE | 2019-04-20 15:30 | NUR ---
NURSE NOTES: PATIENT KEPT CLEAN AND DRY. NOTED BM. DAUGHTER SEEN AT THE BEDSIDE. WILL CONTINUE TO MONITOR.
--- NOTE | 2019-04-20 15:31 | Pulmonology Progress Note ---
Assessment/Plan Assessment/Plan 1. COPD with respiratory failure off BiPAP. 2. Sick sinus syndrome. 3. Septic shock due to UTI 4. CHF 5. Hypertension. 6. Hyperlipidemia. 7. CKD. 8. GERD. 9. History of prior GI bleed. marked improvement off BiPAP ABG better now alert cont rx Subjective Constitutional: Reports: no symptoms Allergies: Coded Allergies: No Known Allergies (Unverified , 06/05/14) Objective Last 24 Hour Vital Signs Date Time Temp Pulse Resp B/P (MAP) Pulse Ox O2 Delivery O2 Flow Rate FiO2 04/20/19 15:00 67 21 103/59 (74) 100 04/20/19 14:00 69 25 89/45 (60) 98 04/20/19 13:00 74 28 98/46 (63) 95 04/20/19 12:01 61 22 100 04/20/19 12:00 73 04/20/19 12:00 98.4 73 24 103/56 (72) 100 04/20/19 11:51 58 26 100 Nasal Cannula 2.0 04/20/19 11:00 69 26 111/60 (77) 95 04/20/19 10:00 70 24 96/45 (62) 100 04/20/19 09:09 79 27 100 04/20/19 09:00 74 25 96/45 (62) 100 04/20/19 08:37 77 111/50 04/20/19 08:00 2.0 04/20/19 08:00 98.5 79 24 111/50 (70) 95 04/20/19 08:00 Nasal Cannula 2.0 04/20/19 08:00 76 04/20/19 07:40 2.0 04/20/19 07:34 79 28 100 04/20/19 07:24 84 30 96 Nasal Cannula 04/20/19 07:00 76 25 111/50 (70) 94 04/20/19 06:00 69 25 104/52 (69) 95 04/20/19 05:09 62 18 100 Full Face 40 04/20/19 05:00 68 18 99/51 (67) 99 04/20/19 04:00 70 04/20/19 04:00 40 04/20/19 04:00 Bi-pap 04/20/19 04:00 98.6 70 21 92/61 (71) 96 04/20/19 03:06 58 16 100 Full Face 40 58 16 100 Bi-Pap 40 04/20/19 03:00 69 17 111/58 (75) 99 04/20/19 02:00 73 26 92/47 (62) 95 04/20/19 01:18 67 16 98 Full Face 40 04/20/19 01:00 67 23 101/51 (68) 97 04/20/19 00:00 65 04/20/19 00:00 98.7 65 18 100/62 (75) 97 04/20/19 00:00 Bi-pap 04/20/19 00:00 40 04/19/19 23:00 70 21 100/62 (75) 98 04/19/19 22:36 70 16 100 Full Face 40 70 16 100 Bi-Pap 40 04/19/19 22:00 64 25 112/58 (76) 100 04/19/19 21:58 77 103/61 04/19/19 21:17 67 16 99 Full Face 40 67 16 99 Bi-Pap 40 04/19/19 21:00 71 15 103/61 (75) 100 04/19/19 20:00 69 04/19/19 20:00 98.7 69 15 107/67 (80) 100 04/19/19 20:00 40 04/19/19 20:00 Bi-pap 04/19/19 19:01 73 16 100 Full Face 40 73 16 100 Bi-Pap 40 04/19/19 19:00 72 12 124/77 (93) 99 04/19/19 18:00 78 12 108/62 (77) 99 04/19/19 17:00 80 14 106/62 (77) 98 04/19/19 16:36 89 14 100 Full Face 40 04/19/19 16:30 82 14 99/66 (77) 96 04/19/19 16:22 Bi-pap 04/19/19 16:00 78 04/19/19 16:00 83 12 87/55 (66) 94 Intake and Output 04/19/19 04/20/19 19:00 07:00 Intake Total 5081 ml 1527.5 ml Output Total 285 ml 470 ml Balance 4796 ml 1057.5 ml Intake Oral 120 ml 450 ml IV Total 4961 ml 1077.5 ml Output Urine Total 285 ml 470 ml # Bowel Movements 1 General Appearance: no acute distress HEENT: normocephalic, atraumatic Respiratory/Chest: decreased breath sounds Cardiovascular: normal rate Abdomen: soft, non tender Extremities: no edema Microbiology Date/Time Source Procedure Growth Status 04/19/19 11:30 Rectal Mucosa Received Laboratory Tests 04/20/19 03:55: White Blood Count 10.6, Red Blood Count 2.79L, Hemoglobin 8.6L, Hematocrit 29.2L , Mean Corpuscular Volume 105H, Mean Corpuscular Hemoglobin 30.8, Mean Corpuscular Hemoglobin Concent 29.4L, Red Cell Distribution Width 17.8H, Platelet Count 245, Mean Platelet Volume 5.3L, Neutrophils (%) (Auto) 60.4, Lymphocytes (%) (Auto) 21.5, Monocytes (%) (Auto) 17.2H, Eosinophils (%) (Auto) 0.6, Basophils (%) (Auto) 0.3, Sodium Level 141, Potassium Level 4.4, Chloride Level 107, Carbon Dioxide Level 30, Anion Gap 4L, Blood Urea Nitrogen 18, Creatinine 1.3, Estimat Glomerular Filtration Rate , Glucose Level 95, Calcium Level 7.9L, Magnesium Level 1.8, Troponin I 0.983H, Pro-B-Type Natriuretic Peptide 91232H, Random Vancomycin Level 11.9 04/20/19 09:50: Arterial Blood pH 7.329L, Arterial Blood Partial Pressure CO2 57.8*H, Arterial Blood Partial Pressure O2 78.6, Arterial Blood HCO3 29.7H, Arterial Blood Oxygen Saturation 94.4L, Arterial Blood Base Excess 3.1H, Hal Test Positive Current Medications Medications (Trade) Dose Ordered Sig/Kate Route PRN Reason Start Time Stop Time Status Last Admin Dose Admin Acetaminophen (Tylenol) 1,000 mg Q8H PRN ORAL For Pain 04/19/19 19:30 05/19/19 19:29 04/20/19 09:28 Albuterol Sulfate (Proventil) 2.5 mg Q4HRT HHN 04/19/19 23:00 04/24/19 22:59 04/20/19 11:51 Apixaban (Eliquis) 2.5 mg BID ORAL 04/19/19 19:44 05/19/19 19:43 04/20/19 08:37 Artificial Tears (Akwa-Tears) 1 drop DAILY BOTH EYES 04/20/19 09:00 05/20/19 08:59 04/20/19 08:38 Atorvastatin Calcium (Lipitor) 10 mg BEDTIME ORAL 04/19/19 21:00 05/19/19 20:59 04/19/19 21:58 Beclomethasone Dipropionate (Qvar 40 Inhaler) 2 puff TWICE A DAY INH 04/19/19 21:00 05/19/19 20:59 04/20/19 08:38 Dextrose (Dextrose 50%) 25 ml Q30M PRN IV Hypoglycemia 04/19/19 15:45 05/19/19 15:44 Dextrose (Dextrose 50%) 50 ml Q30M PRN IV Hypoglycemia 04/19/19 15:45 05/19/19 15:44 Docusate Sodium (Colace) 100 mg TWICE A DAY ORAL 04/20/19 09:00 05/20/19 08:59 04/20/19 08:38 Escitalopram Oxalate (Lexapro) 5 mg DAILY ORAL 04/20/19 09:00 05/20/19 08:59 04/20/19 08:36 Furosemide (Lasix) 20 mg QPM ORAL 04/20/19 16:30 05/20/19 08:59 Furosemide (Lasix) 40 mg DAILY ORAL 04/20/19 09:00 05/20/19 08:59 04/20/19 08:36 Magnesium Hydroxide (Mom) 30 ml Q8H PRN ORAL Constipation 04/19/19 19:30 05/19/19 19:29 Metoprolol Tartrate (Lopressor) 25 mg Q12HR ORAL 04/19/19 21:00 05/19/19 20:59 04/20/19 08:37 Pantoprazole (Protonix) 40 mg DAILY ORAL 04/20/19 09:00 05/20/19 08:59 04/20/19 08:36 Piperacillin Sod/ Tazobactam Sod 3.375 gm/Sodium Chloride 110 ml @ 27.5 mls/hr EVERY 8 HOURS IVPB 04/20/19 06:00 04/27/19 05:59 04/20/19 05:30 Polyethylene Glycol (Miralax) 17 gm Q8H PRN ORAL Constipation 04/19/19 19:30 05/19/19 19:29 Sennosides (Senokot) 8.6 mg DAILY ORAL 04/20/19 09:00 05/20/19 08:59 04/20/19 08:36 Vancomycin HCl (Vanco rx to dose) 1 ea DAILY PRN MISC Per rx protocol 04/19/19 15:45 05/19/19 15:44 Gio Feng MD Apr 20, 2019 15:31
--- NOTE | 2019-04-20 16:04 | NUR ---
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 98.9, HR 137, RR 20, HR. 137, BP 88/50 WBC- 12.4, RBC 3.38, HGB 10.4, LACTIC ACID 2.30 URINE + FOR PROTEIN, LEUKOCYTES, BLOOD IS 02 2L NC NS 2200 ML IV BOLUS AMPICILLIN IVPB VANCOMYCIN IVPB FLAGYL IVPB TYLENOL PO BIPAP Fi02 55 TV 205 ADMITTED TO ICU STATUS ICU STATUS
[2019-04-20] MEDS ORDERED: ESCITALOPRAM OXA5 MG PO (16:58)
--- NOTE | 2019-04-20 16:59 | NUR ---
NURSE NOTES: SEEN AND EXAMINED BY DR FINLEY WITH NEW ORDER. PATIENT TOLERATED 2L NC. WILL CONTINUE TO MONITOR.
--- NOTE | 2019-04-20 17:25 | General Progress Note ---
Assessment/Plan Problem List: (1) Sepsis ICD Codes: A41.9 - Sepsis SNOMED: 34960022 (2) COPD (chronic obstructive pulmonary disease) ICD Codes: J44.9 - Chronic obstructive pulmonary disease, unspecified SNOMED: 55115716 (3) Episode of generalized weakness ICD Codes: R53.1 - Weakness SNOMED: 09940822 (4) Paroxysmal A-fib ICD Codes: I48.0 - Paroxysmal atrial fibrillation SNOMED: 379392766 (5) Hypotension ICD Codes: I95.9 - Hypotension, unspecified SNOMED: 67875720 (6) CHF (congestive heart failure) ICD Codes: I50.9 - Heart failure, unspecified SNOMED: 02915387 (7) Myocardial infarct ICD Codes: I21.3 - ST elevation (STEMI) myocardial infarction of unspecified site SNOMED: 64756222 (8) Cerebral vascular accident ICD Codes: I63.9 - Cerebral infarction, unspecified SNOMED: 226829892 (9) Urinary tract infection ICD Codes: N39.0 - Urinary tract infection, site not specified SNOMED: 50416768 (10) Respiratory acidosis ICD Codes: E87.2 - Acidosis SNOMED: 28823943 Assessment/Plan: improved, start diet, dc iv fluids, continueantibiotics, cultures pending, icu orders updated Subjective Constitutional: Reports: weakness HEENT: Reports: no symptoms Cardiovascular: Reports: no symptoms Respiratory: Reports: SOB with excertion Gastrointestinal/Abdominal: Reports: no symptoms Genitourinary: Reports: burning, incontinence Neurologic/Psychiatric: Reports: pre-existing deficit Endocrine: Reports: no symptoms Hematologic/Lymphatic: Reports: anemia Allergies: Coded Allergies: No Known Allergies (Unverified , 06/05/14) Objective Last 24 Hour Vital Signs Date Time Temp Pulse Resp B/P (MAP) Pulse Ox O2 Delivery O2 Flow Rate FiO2 04/20/19 17:00 76 22 112/54 (73) 100 04/20/19 16:00 98.7 04/20/19 16:00 2.0 04/20/19 16:00 67 21 112/59 (76) 100 04/20/19 16:00 66 04/20/19 16:00 Nasal Cannula 2.0 04/20/19 15:00 67 21 103/59 (74) 100 04/20/19 14:00 69 25 89/45 (60) 98 10/3/19 13:00 74 28 98/46 (63) 95 04/20/19 12:01 61 22 100 04/20/19 12:00 Nasal Cannula 2.0 04/20/19 12:00 2.0 04/20/19 12:00 73 04/20/19 12:00 98.4 73 24 103/56 (72) 100 04/20/19 11:51 58 26 100 Nasal Cannula 2.0 04/20/19 11:00 69 26 111/60 (77) 95 04/20/19 10:00 70 24 96/45 (62) 100 04/20/19 09:09 79 27 100 04/20/19 09:00 74 25 96/45 (62) 100 04/20/19 08:37 77 111/50 04/20/19 08:00 2.0 04/20/19 08:00 98.5 79 24 111/50 (70) 95 04/20/19 08:00 Nasal Cannula 2.0 04/20/19 08:00 76 04/20/19 07:40 2.0 04/20/19 07:34 79 28 100 04/20/19 07:24 84 30 96 Nasal Cannula 04/20/19 07:00 76 25 111/50 (70) 94 04/20/19 06:00 69 25 104/52 (69) 95 04/20/19 05:09 62 18 100 Full Face 40 04/20/19 05:00 68 18 99/51 (67) 99 04/20/19 04:00 70 04/20/19 04:00 40 04/20/19 04:00 Bi-pap 04/20/19 04:00 98.6 70 21 92/61 (71) 96 04/20/19 03:06 58 16 100 Full Face 40 58 16 100 Bi-Pap 40 04/20/19 03:00 69 17 111/58 (75) 99 04/20/19 02:00 73 26 92/47 (62) 95 04/20/19 01:18 67 16 98 Full Face 40 04/20/19 01:00 67 23 101/51 (68) 97 04/20/19 00:00 65 04/20/19 00:00 98.7 65 18 100/62 (75) 97 04/20/19 00:00 Bi-pap 04/20/19 00:00 40 04/19/19 23:00 70 21 100/62 (75) 98 04/19/19 22:36 70 16 100 Full Face 40 70 16 100 Bi-Pap 40 04/19/19 22:00 64 25 112/58 (76) 100 04/19/19 21:58 77 103/61 04/19/19 21:17 67 16 99 Full Face 40 67 16 99 Bi-Pap 40 04/19/19 21:00 71 15 103/61 (75) 100 04/19/19 20:00 69 04/19/19 20:00 98.7 69 15 107/67 (80) 100 04/19/19 20:00 40 04/19/19 20:00 Bi-pap 04/19/19 19:01 73 16 100 Full Face 40 73 16 100 Bi-Pap 40 04/19/19 19:00 72 12 124/77 (93) 99 04/19/19 18:00 78 12 108/62 (77) 99 Intake and Output 04/19/19 04/20/19 19:00 07:00 Intake Total 5081 ml 1527.5 ml Output Total 285 ml 470 ml Balance 4796 ml 1057.5 ml Intake Oral 120 ml 450 ml IV Total 4961 ml 1077.5 ml Output Urine Total 285 ml 470 ml # Bowel Movements 1 Laboratory Tests 04/20/19 03:55: White Blood Count 10.6, Red Blood Count 2.79L, Hemoglobin 8.6L, Hematocrit 29.2L , Mean Corpuscular Volume 105H, Mean Corpuscular Hemoglobin 30.8, Mean Corpuscular Hemoglobin Concent 29.4L, Red Cell Distribution Width 17.8H, Platelet Count 245, Mean Platelet Volume 5.3L, Neutrophils (%) (Auto) 60.4, Lymphocytes (%) (Auto) 21.5, Monocytes (%) (Auto) 17.2H, Eosinophils (%) (Auto) 0.6, Basophils (%) (Auto) 0.3, Sodium Level 141, Potassium Level 4.4, Chloride Level 107, Carbon Dioxide Level 30, Anion Gap 4L, Blood Urea Nitrogen 18, Creatinine 1.3, Estimat Glomerular Filtration Rate , Glucose Level 95, Calcium Level 7.9L, Magnesium Level 1.8, Troponin I 0.983H, Pro-B-Type Natriuretic Peptide 57245N, Random Vancomycin Level 11.9 04/20/19 09:50: Arterial Blood pH 7.329L, Arterial Blood Partial Pressure CO2 57.8*H, Arterial Blood Partial Pressure O2 78.6, Arterial Blood HCO3 29.7H, Arterial Blood Oxygen Saturation 94.4L, Arterial Blood Base Excess 3.1H, Hal Test Positive Height (Feet): 5 Height (Inches): 5.00 Weight (Pounds): 170 General Appearance: no apparent distress, obese EENT: normal ENT inspection Neck: normal alignment Cardiovascular: normal rate, regular rhythm Respiratory/Chest: lungs clear, decreased breath sounds Abdomen: non tender, soft Edema: no edema noted Arm (L), no edema noted Arm (R), no edema noted Leg (L), no edema noted Leg (R), no edema noted Pedal (L), no edema noted Pedal (R), no edema noted Generalized Neurologic: motor weakness Pastor Bowen MD Apr 20, 2019 17:25
--- NOTE | 2019-04-20 19:24 | NUR ---
HAND-OFF: Report given to Mabel Chow RN.
--- NOTE | 2019-04-20 19:25 | NUR ---
NURSE NOTES: Endorsement received from STEVEN Pelayo. Patient alert x3. No shortness of breath. No complains of pain. Able to communicate needs. Head of bed elevated. Bed locked and in low position. Call light within reach. Bed alarm on. Will continue to monitor.
--- NOTE | 2019-04-20 19:30 | NUR ---
NURSE NOTES: Received patient from STEVEN Pelayo. patient is AO X4, able to make needs known, denies pain at this time. patient is currently on 2 L O2 via NC, tolerating well, saturating at 100%. diminished lung sounds upon auscultation. Purewick in place, patent and draining pale janae urine. IV sites are patent and intact, asymptomatic. bed in lowest position and locked, siderails up X2, call light within reach. will continue to monitor.
--- NOTE | 2019-04-20 20:30 | NUR ---
NURSE NOTES: OB stool collected, patient cleaned, new Purewick put in place.
--- NOTE | 2019-04-20 21:15 | NUR ---
NURSE NOTES: due meds given. pt c/o generalized pain. PRN tylenol given. will continue to monitor.
--- NOTE | 2019-04-20 21:30 | NUR ---
TRANSFER TO FLOOR: Patient transferred to , room 202-2. Report given to STEVEN Faustin. Belongings reviewed with nurse at bedside. Medications given to STEVEN Faustin. endorsed plan of care. patient is in stable condition.
--- NOTE | 2019-04-20 21:30 | NUR ---
NURSE NOTES: Transferred patient to the floor with patient's belongings, belongings counterchecked with patient prior to transfer. Call light placed within visible reach, educated patient on how to use call light. Bed locked and in low position.
[2019-04-20] MEDS ORDERED: Milk of Magnesia 30ml Ud ORAL PRN (21:49)
[2019-04-20] MEDS ORDERED: Miralax 17gm pkt ORAL PRN (21:49)
--- NOTE | 2019-04-20 22:00 | NUR ---
NURSE NOTES: Received patient from STEVEN Faustin, patient transferred from [facility] in stable condition, AOx4, room air now, O2 @2L n/c, PRN, BIPAP prn ,talkative, in good mood, IV sites on left hand G18 and right hand G18 saline locks, asymptomatic, intact, patent, no skin impairment, patient ambulatory, using bedside commode, bed low &locked, side rails upx2, call light within reach, will continue to monitor and reassess. Addendum: 04/21/19 at 0040 by CYNTHIA SELF RN patient is not ambulatory at this time, she has right-sided weakness from CVA in the past. will assist patient with her needs. continue to monitor and reassess
[2019-04-21] VITALS: BP 100/46
--- NOTE | 2019-04-21 00:15 | Progress Note ---
DATE: 04/20/2019 CARDIOLOGY PROGRESS NOTE SUBJECTIVE: The patient remains in the intensive care unit. She is more alert. She is able to ____ off BiPAP for a while. Monitored rhythm remains sinus with paroxysms of atrial fibrillation. OBJECTIVE: VITAL SIGNS: Blood pressure 112/54, heart rate 76, respirations 22, and afebrile. LUNGS: Diminished breath sounds. HEART: Regular rhythm and rate. Normal S1, S2 with a 1/6 systolic apical murmur. ABDOMEN: Soft and nontender. EXTREMITIES: With trace edema. LABORATORY DATA: White count 10.6 and hemoglobin 8.6. Sodium 141, potassium 4.4, bicarbonate 30, BUN 18, and creatinine 1.3. Magnesium 1.8. Troponin . Pro-natriuretic peptide 11,668. IMPRESSION: 1. Acute respiratory failure. 2. Resolved lactic acidosis. 3. Acute on chronic diastolic congestive heart failure. 4. Acute myocardial infarction. 5. Sepsis with shock, recovered. 6. CVA with right hemiparesis. 7. COPD. PLAN: 1. Continue ICU level of care. 2. Discontinue IV fluids. 3. Cautiously resume diuretic therapy. 4. Advance oral intake. 5. Titrate anti-failure drugs. 6. Respiratory hygiene. 7. DVT and stress ulcer prophylaxis. 8. The patient is critical condition and guarded prognosis. Jan Moreno M.D. DR: MINA JOB#: [id number] CC:
[2019-04-21] MEDS: Albuterol ud Inhalation HHN SCH ×6 (03:25→23:00)
[2019-04-21 04:00] VITALS: BP 107/57
[2019-04-21] MEDS: Piperacillin/Tazobactam 3.375 GM in NS 110 ML IVPB SCH ×3 (06:03→21:25)
--- NOTE | 2019-04-21 07:06 | NUR ---
HAND-OFF: Report given to Ashok, patient in stable condition, plan of care endorsed..
[2019-04-21 07:08] LABS: BASOPHILS % (AUTO) 1.2 % (0.0-2.0); EOSINOPHILS % (AUTO) 1.1 % (0.0-3.0); HEMATOCRIT 28.4 % (37.0-47.0); HEMOGLOBIN 8.5 G/DL (12.0-16.0); LYMPHOCYTES % (AUTO) 22.2 % (20.0-45.0); MEAN CORPUSCULAR VOLUME 104 FL (80-99); MONOCYTES % (AUTO) 11.9 % (1.0-10.0); NEUTROPHILS % (AUTO) 63.6 % (45.0-75.0); PLATELET COUNT 244 K/UL (150-450); RED BLOOD COUNT 2.73 M/UL (4.20-5.40); RED CELL DISTRIBUTION WIDTH 17.7 % (11.6-14.8); WHITE BLOOD COUNT 8.6 K/UL (4.8-10.8)
[2019-04-21 07:28] LABS: ANION GAP 4 mmol/L (5-15); BLOOD UREA NITROGEN 10 mg/dL (7-18); CALCIUM 8.5 MG/DL (8.5-10.1); CARBON DIOXIDE 34 MMOL/L (21-32); CHLORIDE 106 MMOL/L (98-107); CREATININE 1.1 MG/DL (0.55-1.30); POTASSIUM 3.5 MMOL/L (3.5-5.1); SODIUM 143 MMOL/L (136-145)
--- NOTE | 2019-04-21 07:57 | General Progress Note ---
Assessment/Plan Problem List: (1) Sepsis ICD Codes: A41.9 - Sepsis SNOMED: 56404697 (2) COPD (chronic obstructive pulmonary disease) ICD Codes: J44.9 - Chronic obstructive pulmonary disease, unspecified SNOMED: 22528628 (3) Episode of generalized weakness ICD Codes: R53.1 - Weakness SNOMED: 09255486 (4) Paroxysmal A-fib ICD Codes: I48.0 - Paroxysmal atrial fibrillation SNOMED: 928822667 (5) Hypotension ICD Codes: I95.9 - Hypotension, unspecified SNOMED: 36751834 (6) CHF (congestive heart failure) ICD Codes: I50.9 - Heart failure, unspecified SNOMED: 25803176 (7) Myocardial infarct ICD Codes: I21.3 - ST elevation (STEMI) myocardial infarction of unspecified site SNOMED: 14047021 (8) Cerebral vascular accident ICD Codes: I63.9 - Cerebral infarction, unspecified SNOMED: 347797745 (9) Urinary tract infection ICD Codes: N39.0 - Urinary tract infection, site not specified SNOMED: 00014128 (10) Respiratory acidosis ICD Codes: E87.2 - Acidosis SNOMED: 82814694 Assessment/Plan: improved, start diet, dc iv fluids, continueantibiotics, cultures pending, orders updated,kcl,mobilize, check cultures Subjective Constitutional: Reports: weakness HEENT: Reports: no symptoms Cardiovascular: Reports: no symptoms Respiratory: Reports: SOB with excertion Gastrointestinal/Abdominal: Reports: no symptoms Genitourinary: Reports: incontinence Neurologic/Psychiatric: Reports: pre-existing deficit Endocrine: Reports: no symptoms Hematologic/Lymphatic: Reports: anemia Allergies: Coded Allergies: No Known Allergies (Unverified , 06/05/14) Objective Last 24 Hour Vital Signs Date Time Temp Pulse Resp B/P (MAP) Pulse Ox O2 Delivery O2 Flow Rate FiO2 04/21/19 07:40 75 18 99 04/21/19 04:00 Nasal Cannula 2.0 04/21/19 04:00 100.0 89 20 107/57 (74) 100 04/21/19 03:25 84 27 100 Nasal Cannula 2.0 28 74 22 99 04/21/19 00:00 98.5 77 20 100/46 (64) 100 04/21/19 00:00 Nasal Cannula 2.0 04/21/19 00:00 87 04/20/19 23:09 81 26 100 Nasal Cannula 2.0 28 76 22 99 04/20/19 21:13 88 24 109/52 (71) 100 04/20/19 21:00 85 26 105/52 (69) 100 04/20/19 20:54 79 108/54 04/20/19 20:00 Nasal Cannula 2.0 04/20/19 20:00 98.9 78 25 108/54 (72) 100 04/20/19 20:00 2.0 04/20/19 20:00 98 04/20/19 19:00 92 26 101/45 (63) 99 04/20/19 18:43 81 26 100 Nasal Cannula 2.0 28 89 28 100 04/20/19 18:00 98 26 109/74 (86) 95 04/20/19 17:00 76 22 112/54 (73) 100 04/20/19 16:00 98.7 04/20/19 16:00 2.0 04/20/19 16:00 67 21 112/59 (76) 100 04/20/19 16:00 66 04/20/19 16:00 Nasal Cannula 2.0 04/20/19 15:00 67 21 103/59 (74) 100 04/20/19 14:00 69 25 89/45 (60) 98 04/20/19 13:00 74 28 98/46 (63) 95 04/20/19 12:01 61 22 100 04/20/19 12:00 Nasal Cannula 2.0 04/20/19 12:00 2.0 04/20/19 12:00 73 04/20/19 12:00 98.4 73 24 103/56 (72) 100 04/20/19 11:51 58 26 100 Nasal Cannula 2.0 04/20/19 11:00 69 26 111/60 (77) 95 04/20/19 10:00 70 24 96/45 (62) 100 04/20/19 09:09 79 27 100 04/20/19 09:00 74 25 96/45 (62) 100 04/20/19 08:37 77 111/50 04/20/19 08:00 2.0 04/20/19 08:00 98.5 79 24 111/50 (70) 95 04/20/19 08:00 Nasal Cannula 2.0 04/20/19 08:00 76 Intake and Output 04/20/19 04/21/19 19:00 07:00 Intake Total 1467.916 ml 2370 ml Output Total 1350 ml 301 ml Balance 117.916 ml 2069 ml Intake Oral 350 ml 60 ml IV Total 1117.916 ml 2310 ml Output Urine Total 1350 ml 301 ml # Bowel Movements 3 5 Laboratory Tests 04/20/19 09:50: Arterial Blood pH 7.329L, Arterial Blood Partial Pressure CO2 57.8*H, Arterial Blood Partial Pressure O2 78.6, Arterial Blood HCO3 29.7H, Arterial Blood Oxygen Saturation 94.4L, Arterial Blood Base Excess 3.1H, Hal Test Positive 04/20/19 18:45: Stool Occult Blood [Pending] 04/21/19 05:37: White Blood Count 8.6, Red Blood Count 2.73L, Hemoglobin 8.5L, Hematocrit 28.4L , Mean Corpuscular Volume 104H, Mean Corpuscular Hemoglobin 30.9, Mean Corpuscular Hemoglobin Concent 29.7L, Red Cell Distribution Width 17.7H, Platelet Count 244, Mean Platelet Volume 5.2L, Neutrophils (%) (Auto) 63.6, Lymphocytes (%) (Auto) 22.2, Monocytes (%) (Auto) 11.9H, Eosinophils (%) (Auto) 1.1, Basophils (%) (Auto) 1.2, Sodium Level 143, Potassium Level 3.5, Chloride Level 106, Carbon Dioxide Level 34H, Anion Gap 4L, Blood Urea Nitrogen 10, Creatinine 1.1, Estimat Glomerular Filtration Rate , Glucose Level 100, Calcium Level 8.5, Troponin I 1.389H, Random Vancomycin Level 11.9 Height (Feet): 5 Height (Inches): 5.00 Weight (Pounds): 161 General Appearance: no apparent distress, alert EENT: normal ENT inspection Neck: normal alignment Cardiovascular: normal rate, regular rhythm Respiratory/Chest: lungs clear Abdomen: non tender, soft Edema: no edema noted Arm (L), no edema noted Arm (R), no edema noted Leg (L), no edema noted Leg (R), no edema noted Pedal (L), no edema noted Pedal (R), no edema noted Generalized Neurologic: motor weakness Pastor Bowen MD Apr 21, 2019 07:57
[2019-04-21 08:00] VITALS: BP 101/54
--- NOTE | 2019-04-21 08:03 | NUR ---
NURSE NOTES: Pt in bed in low position, HOB in high fowlers, pt eating breakfast at bedside, denies pain, Md cross was at bedside, Troponin level reported by lab at 1.389 and Md Cross made aware, he stated he will call Md Moreno. IV intact and patent asymptomatic, Md Cross gave instructions to sit the pt up for meals in chair and keep up right at 90 degrees, call light at bedside and bed alarm on, no s/s of distress or sob noted.
[2019-04-21] MEDS: Qvar 40mcg Inhaler 6.8 gm INH SCH ×3 (08:17→19:29)
[2019-04-21 08:25] LABS: % IRON SATURATION 12 % (15-50); IRON 25 ug/dL (50-175); TOTAL IRON BINDING CAPACITY 211 ug/dL (250-450)
[2019-04-21 08:38] LABS: FERRITIN 126 NG/ML (8-388)
[2019-04-21] MEDS ORDERED: Vancomycin 1gm/D5W 275ml IVPB ONE ×2 (09:00)
[2019-04-21] MEDS: Sennosides 8.6mg tab ORAL SCH (09:55)
[2019-04-21] MEDS: Docusate 100mg cap ORAL SCH ×2 (09:55→18:00)
[2019-04-21] MEDS: Eliquis 2.5mg tablet ORAL SCH ×2 (09:59→18:00)
[2019-04-21] MEDS: Metoprolol 25mg tab ORAL SCH ×2 (09:59→21:28)
[2019-04-21] MEDS: Furosemide 40mg tab ORAL SCH (10:00)
[2019-04-21 12:00] VITALS: BP 109/61
--- NOTE | 2019-04-21 13:13 | Pulmonology Progress Note ---
Assessment/Plan Assessment/Plan 1. COPD with respiratory failure off BiPAP. 2. Sick sinus syndrome. 3. Septic shock due to UTI 4. CHF 5. Hypertension. 6. Hyperlipidemia. 7. CKD. 8. GERD. 9. History of prior GI bleed. continued improvement no BiPAP alert, responsive cont rx mobilize Subjective Constitutional: Reports: no symptoms Respiratory: Denies: productive cough, shortness of breath Allergies: Coded Allergies: No Known Allergies (Unverified , 06/05/14) Objective Last 24 Hour Vital Signs Date Time Temp Pulse Resp B/P (MAP) Pulse Ox O2 Delivery O2 Flow Rate FiO2 04/21/19 11:25 76 20 100 Nasal Cannula 2.0 28 76 22 99 04/21/19 09:59 82 101/54 04/21/19 08:00 97.0 63 18 101/54 (70) 100 04/21/19 07:40 75 18 99 04/21/19 04:00 Nasal Cannula 2.0 04/21/19 04:00 100.0 89 20 107/57 (74) 100 04/21/19 03:25 84 27 100 Nasal Cannula 2.0 28 74 22 99 04/21/19 00:00 98.5 77 20 100/46 (64) 100 04/21/19 00:00 Nasal Cannula 2.0 04/21/19 00:00 87 04/20/19 23:09 81 26 100 Nasal Cannula 2.0 28 76 22 99 04/20/19 21:13 88 24 109/52 (71) 100 04/20/19 21:00 85 26 105/52 (69) 100 04/20/19 20:54 79 108/54 04/20/19 20:00 Nasal Cannula 2.0 04/20/19 20:00 98.9 78 25 108/54 (72) 100 04/20/19 20:00 2.0 04/20/19 20:00 98 04/20/19 19:00 92 26 101/45 (63) 99 04/20/19 18:43 81 26 100 Nasal Cannula 2.0 28 89 28 100 04/20/19 18:00 98 26 109/74 (86) 95 04/20/19 17:00 76 22 112/54 (73) 100 04/20/19 16:00 98.7 04/20/19 16:00 2.0 04/20/19 16:00 67 21 112/59 (76) 100 04/20/19 16:00 66 04/20/19 16:00 Nasal Cannula 2.0 04/20/19 15:00 67 21 103/59 (74) 100 04/20/19 14:00 69 25 89/45 (60) 98 Intake and Output 04/20/19 04/21/19 18:59 06:59 Intake Total 1567.916 ml 2397.5 ml Output Total 1390 ml 301 ml Balance 177.916 ml 2096.5 ml Intake Oral 350 ml 60 ml IV Total 1217.916 ml 2337.5 ml Output Urine Total 1390 ml 301 ml # Bowel Movements 1 7 General Appearance: no acute distress HEENT: atraumatic Respiratory/Chest: lungs clear Cardiovascular: normal rate Microbiology Date/Time Source Procedure Growth Status 04/19/19 11:10 Blood Blood Culture - Preliminary NO GROWTH AFTER 24 HOURS Resulted 04/19/19 10:55 Blood Blood Culture - Preliminary NO GROWTH AFTER 24 HOURS Resulted 04/20/19 14:00 Sputum Gram Stain - Final Resulted 04/20/19 14:00 Sputum Sputum Culture - Preliminary NO GROWTH Resulted 04/19/19 11:30 Nasal Nares MRSA Culture - Final NO METHICILLIN RESISTANT STAPH AUREUS... Complete 04/19/19 11:30 Urine,Clean Catch Urine Culture - Preliminary Gram Negative Italo Resulted 04/19/19 11:30 Rectum VRE Culture - Final NO VANCOMYCIN RESISTANT ENTEROCOCCUS ... Complete 04/19/19 11:30 Rectal Mucosa - Final NO CARBAPENEM-RESISTANT ENTEROBACTERI... Complete Laboratory Tests 04/20/19 18:45: Stool Occult Blood Positive 04/21/19 05:30: Iron Level 25L, Total Iron Binding Capacity 211L, Percent Iron Saturation 12L, Unsaturated Iron Binding 186, Ferritin 126 04/21/19 05:37: White Blood Count 8.6, Red Blood Count 2.73L, Hemoglobin 8.5L, Hematocrit 28.4L , Mean Corpuscular Volume 104H, Mean Corpuscular Hemoglobin 30.9, Mean Corpuscular Hemoglobin Concent 29.7L, Red Cell Distribution Width 17.7H, Platelet Count 244, Mean Platelet Volume 5.2L, Neutrophils (%) (Auto) 63.6, Lymphocytes (%) (Auto) 22.2, Monocytes (%) (Auto) 11.9H, Eosinophils (%) (Auto) 1.1, Basophils (%) (Auto) 1.2, Sodium Level 143, Potassium Level 3.5, Chloride Level 106, Carbon Dioxide Level 34H, Anion Gap 4L, Blood Urea Nitrogen 10, Creatinine 1.1, Estimat Glomerular Filtration Rate , Glucose Level 100, Calcium Level 8.5, Troponin I 1.389H, Random Vancomycin Level 11.9 04/21/19 11:30: Stool Occult Blood [Pending] Current Medications Medications (Trade) Dose Ordered Sig/Kate Route PRN Reason Start Time Stop Time Status Last Admin Dose Admin Acetaminophen (Tylenol) 1,000 mg Q8H PRN ORAL For Pain 04/20/19 21:48 05/20/19 21:47 Albuterol Sulfate (Proventil) 2.5 mg Q4HRT HHN 04/20/19 23:00 04/24/19 22:59 04/21/19 11:29 Apixaban (Eliquis) 2.5 mg BID ORAL 04/21/19 09:00 05/19/19 19:43 04/21/19 09:59 Artificial Tears (Akwa-Tears) 1 drop DAILY BOTH EYES 04/21/19 09:00 05/20/19 08:59 04/21/19 11:33 Atorvastatin Calcium (Lipitor) 10 mg BEDTIME ORAL 04/21/19 21:00 05/19/19 20:59 Beclomethasone Dipropionate (Qvar 40 Inhaler) 2 puff TWICE A DAY INH 04/21/19 09:00 05/19/19 20:59 Dextrose (Dextrose 50%) 25 ml Q30M PRN IV Hypoglycemia 04/20/19 22:15 05/19/19 15:44 Dextrose (Dextrose 50%) 50 ml Q30M PRN IV Hypoglycemia 04/20/19 22:15 05/19/19 15:44 Docusate Sodium (Colace) 100 mg TWICE A DAY ORAL 04/21/19 09:00 05/20/19 08:59 Escitalopram Oxalate (Lexapro) 5 mg DAILY ORAL 04/21/19 09:00 05/20/19 08:59 04/21/19 10:00 Furosemide (Lasix) 20 mg QPM ORAL 04/21/19 16:30 05/20/19 08:59 Furosemide (Lasix) 40 mg DAILY ORAL 04/21/19 09:00 05/20/19 08:59 04/21/19 10:00 Iron Sucrose 100 mg/Sodium Chloride 60 ml @ 240 mls/hr BEDTIME IV 04/21/19 21:00 04/25/19 21:14 Magnesium Hydroxide (Mom) 30 ml Q8H PRN ORAL Constipation 04/20/19 21:49 05/20/19 21:48 Metoprolol Tartrate (Lopressor) 25 mg Q12HR ORAL 04/21/19 09:00 05/19/19 20:59 04/21/19 09:59 Pantoprazole (Protonix) 40 mg DAILY ORAL 04/21/19 09:00 05/20/19 08:59 04/21/19 09:59 Piperacillin Sod/ Tazobactam Sod 3.375 gm/Sodium Chloride 110 ml @ 27.5 mls/hr EVERY 8 HOURS IVPB 04/20/19 22:00 04/27/19 05:59 04/21/19 06:03 Polyethylene Glycol (Miralax) 17 gm Q8H PRN ORAL Constipation 04/20/19 21:49 05/20/19 21:48 Potassium Chloride (K-Dur) 40 meq TWICE A DAY ORAL 04/21/19 09:00 05/21/19 08:59 04/21/19 09:59 Sennosides (Senokot) 8.6 mg DAILY ORAL 04/21/19 09:00 05/20/19 08:59 Gio Feng MD Apr 21, 2019 13:13
[2019-04-21] MEDS: Acetaminophen 500mg (ES) tab ORAL PRN (15:29)
--- NOTE | 2019-04-21 15:30 | NUR ---
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 8.6, RBC 2.73, HGB 8.5, HCT 28.4 TROP 1.389, IS D5 1/2 1000ML IV ZOSYN IV Q 8HRS LASIX QHS LOPRESSOR Q12 PROTINIX QD BECLOMETHASON HHN BID ALBUTEROL HHN Q 4H DOWN GRADED TO TELE STATUS TELE STATUS
[2019-04-21 16:00] VITALS: BP 106/65
--- NOTE | 2019-04-21 19:03 | NUR ---
HAND-OFF: Report given to aPm Otero
--- NOTE | 2019-04-21 19:45 | NUR ---
NURSE NOTES: Received patient from STEVEN Pulido, in stable condition, AOx4, room air now, O2 @2L n/c, PRN, BIPAP prn ,talkative, in good mood, IV sites on left hand G18 and right hand G18 saline locks, asymptomatic, intact, patent, no skin impairment, patient ambulatory only with assist, using bedside commode with assist, bed low &locked, side rails upx2, call light within reach, will continue to monitor and reassess.
[2019-04-21 20:00] VITALS: BP 101/54
[2019-04-21] MEDS: Iron Sucrose 100 MG in NS 55 ML IV SCH (21:25)
[2019-04-22] VITALS (7 sets, daily range): BP systolic 90–108; BP diastolic 41–60
[2019-04-22] MEDS: Albuterol ud Inhalation HHN SCH ×5 (03:00→23:25)
[2019-04-22] MEDS: Piperacillin/Tazobactam 3.375 GM in NS 110 ML IVPB SCH ×3 (05:50→22:28)
--- NOTE | 2019-04-22 07:07 | NUR ---
NURSE NOTES: Left message for patient positive for ESBL urine
--- NOTE | 2019-04-22 07:17 | NUR ---
HAND-OFF: Report given to STEVEN Galan, patient in stable condition, plan of care endorsed.
--- NOTE | 2019-04-22 08:00 | NUR ---
NURSE NOTES: Received report from STEVEN Jean Baptiste. Pt in bed, assisted pt to chair for breakfast with assistance from RADHA Dorsey. Pt awake, talkative, no complaints of pain, no apparent distress noted, on NC 2L , RT in room to do breathing treatment, bed in lowest position, call light within reach.
[2019-04-22] MEDS: Qvar 40mcg Inhaler 6.8 gm INH SCH ×2 (08:06→19:50)
[2019-04-22] MEDS: Sennosides 8.6mg tab ORAL SCH (09:00)
[2019-04-22] MEDS: Metoprolol 25mg tab ORAL SCH ×2 (09:00→21:00)
[2019-04-22] MEDS: Docusate 100mg cap ORAL SCH ×2 (09:00→17:02)
[2019-04-22 09:04] LABS: BASOPHILS % (AUTO) 0.6 % (0.0-2.0); EOSINOPHILS % (AUTO) 1.6 % (0.0-3.0); HEMATOCRIT 31.6 % (37.0-47.0); HEMOGLOBIN 9.2 G/DL (12.0-16.0); LYMPHOCYTES % (AUTO) 21.2 % (20.0-45.0); MEAN CORPUSCULAR VOLUME 105 FL (80-99); MONOCYTES % (AUTO) 12.9 % (1.0-10.0); NEUTROPHILS % (AUTO) 63.7 % (45.0-75.0); PLATELET COUNT 289 K/UL (150-450); RED BLOOD COUNT 3.02 M/UL (4.20-5.40); RED CELL DISTRIBUTION WIDTH 17.6 % (11.6-14.8); WHITE BLOOD COUNT 10.5 K/UL (4.8-10.8)
[2019-04-22] MEDS: Acetaminophen 500mg (ES) tab ORAL PRN ×2 (09:25→20:18)
[2019-04-22] MEDS: Eliquis 2.5mg tablet ORAL SCH ×2 (09:26→17:02)
[2019-04-22] MEDS: Furosemide 40mg tab ORAL SCH (09:29)
--- NOTE | 2019-04-22 09:32 | NUR ---
NURSE NOTES: Held BP meds due to BP 101/56 HR 73, pt refused Stool Softner as she states she "has been going a lot"
[2019-04-22 09:38] LABS: ANION GAP 1 mmol/L (5-15); BLOOD UREA NITROGEN 8 mg/dL (7-18); CALCIUM 9.2 MG/DL (8.5-10.1); CARBON DIOXIDE 36 MMOL/L (21-32); CHLORIDE 105 MMOL/L (98-107); POTASSIUM 4.2 MMOL/L (3.5-5.1); SODIUM 142 MMOL/L (136-145)
--- NOTE | 2019-04-22 10:40 | NUR ---
NURSE NOTES: Left message for Dr. Anaya regarding ESBL of urine result, notified by Ita Javascript Web Developer RN and Dr. Bowen ordered Meropenem 1gm, but no frequency or route. RN will discuss with Dr. Anaya and enter order per ID MD.
[2019-04-22] MEDS ORDERED: Meropenem 1 GM in NS 55 ML IVPB SCH (11:00)
--- NOTE | 2019-04-22 11:32 | General Progress Note ---
Assessment/Plan Problem List: (1) Sepsis ICD Codes: A41.9 - Sepsis SNOMED: 15968537 (2) COPD (chronic obstructive pulmonary disease) ICD Codes: J44.9 - Chronic obstructive pulmonary disease, unspecified SNOMED: 48706919 (3) Episode of generalized weakness ICD Codes: R53.1 - Weakness SNOMED: 44329069 (4) Paroxysmal A-fib ICD Codes: I48.0 - Paroxysmal atrial fibrillation SNOMED: 508525402 (5) Hypotension ICD Codes: I95.9 - Hypotension, unspecified SNOMED: 11214569 (6) CHF (congestive heart failure) ICD Codes: I50.9 - Heart failure, unspecified SNOMED: 20762600 (7) Myocardial infarct ICD Codes: I21.3 - ST elevation (STEMI) myocardial infarction of unspecified site SNOMED: 00410395 (8) Cerebral vascular accident ICD Codes: I63.9 - Cerebral infarction, unspecified SNOMED: 693336691 (9) Urinary tract infection ICD Codes: N39.0 - Urinary tract infection, site not specified SNOMED: 98341327 (10) Respiratory acidosis ICD Codes: E87.2 - Acidosis SNOMED: 13665606 Assessment/Plan: improved, start diet, dc iv fluids, continueantibiotics, cultures pending,+esbl , ID to see, meropenam orders updated,kcl,mobilize, check cultures Subjective Constitutional: Reports: weakness HEENT: Reports: no symptoms Cardiovascular: Reports: no symptoms Respiratory: Reports: SOB with excertion Gastrointestinal/Abdominal: Reports: no symptoms Genitourinary: Reports: incontinence Neurologic/Psychiatric: Reports: pre-existing deficit Endocrine: Reports: no symptoms Hematologic/Lymphatic: Reports: anemia Allergies: Coded Allergies: No Known Allergies (Unverified , 06/05/14) Objective Last 24 Hour Vital Signs Date Time Temp Pulse Resp B/P (MAP) Pulse Ox O2 Delivery O2 Flow Rate FiO2 04/22/19 10:52 62 20 99 Nasal Cannula 2.0 28 60 20 96 04/22/19 09:25 99.2 04/22/19 09:00 73 101/56 04/22/19 08:00 99.2 73 20 101/56 (71) 94 04/22/19 08:00 72 20 100 Nasal Cannula 2.0 28 71 20 97 04/22/19 08:00 Nasal Cannula 2.0 04/22/19 07:52 61 04/22/19 04:00 67 04/22/19 04:00 97.1 64 18 108/60 (76) 97 04/22/19 00:00 60 04/22/19 00:00 98.2 79 17 106/59 (75) 97 04/21/19 21:28 81 110/55 04/21/19 20:00 99.0 81 18 101/54 (70) 97 04/21/19 20:00 85 04/21/19 19:30 73 20 100 Nasal Cannula 2.0 28 70 18 98 04/21/19 16:00 98.2 106/65 (79) 04/21/19 15:56 81 04/21/19 15:15 75 18 99 04/21/19 12:00 98.6 74 20 109/61 (77) 98 04/21/19 11:42 60 Intake and Output 04/21/19 04/22/19 19:00 07:00 Intake Total 500 ml Output Total 300 ml Balance 200 ml Intake Oral 500 ml Output Urine Total 300 ml # Voids 3 Laboratory Tests 04/21/19 21:00: Stool Occult Blood Positive 04/22/19 08:35: White Blood Count 10.5, Red Blood Count 3.02L, Hemoglobin 9.2L, Hematocrit 31.6L , Mean Corpuscular Volume 105H, Mean Corpuscular Hemoglobin 30.7, Mean Corpuscular Hemoglobin Concent 29.3L, Red Cell Distribution Width 17.6H, Platelet Count 289, Mean Platelet Volume 5.0L, Neutrophils (%) (Auto) 63.7, Lymphocytes (%) (Auto) 21.2, Monocytes (%) (Auto) 12.9H, Eosinophils (%) (Auto) 1.6, Basophils (%) (Auto) 0.6, Sodium Level 142, Potassium Level 4.2, Chloride Level 105, Carbon Dioxide Level 36H, Anion Gap 1L, Blood Urea Nitrogen 8, Creatinine 1.0, Estimat Glomerular Filtration Rate , Glucose Level 108H, Calcium Level 9.2 Height (Feet): 5 Height (Inches): 5.00 Weight (Pounds): 156 General Appearance: no apparent distress, alert EENT: normal ENT inspection Neck: normal alignment Cardiovascular: regular rhythm Respiratory/Chest: lungs clear, decreased breath sounds Abdomen: non tender Edema: no edema noted Arm (L), no edema noted Arm (R), no edema noted Leg (L), no edema noted Leg (R), no edema noted Pedal (L), no edema noted Pedal (R), no edema noted Generalized Neurologic: motor weakness Pastor Bowen MD Apr 22, 2019 11:32
--- NOTE | 2019-04-22 12:37 | Infectious Diseases Prog Note ---
Assessment/Plan Assessment/Plan Full consult dictated: A) 1) complicated esbl e.coli uti/pyelonephritis 2) sepsis, leukocytosis, fevers 3) pmh noted 4) allergies - nkda P) 1) meropenem 2) check cultures, labs 3) thank you Subjective Allergies: Coded Allergies: No Known Allergies (Unverified , 06/05/14) Objective Vital Signs Last 24 Hour Vital Signs Date Time Temp Pulse Resp B/P (MAP) Pulse Ox O2 Delivery O2 Flow Rate FiO2 04/22/19 10:52 62 20 99 Nasal Cannula 2.0 28 60 20 96 04/22/19 09:25 99.2 04/22/19 09:00 73 101/56 04/22/19 08:00 99.2 73 20 101/56 (71) 94 04/22/19 08:00 72 20 100 Nasal Cannula 2.0 28 71 20 97 04/22/19 08:00 Nasal Cannula 2.0 04/22/19 07:52 61 04/22/19 04:00 67 04/22/19 04:00 97.1 64 18 108/60 (76) 97 04/22/19 00:00 60 04/22/19 00:00 98.2 79 17 106/59 (75) 97 04/21/19 21:28 81 110/55 04/21/19 20:00 99.0 81 18 101/54 (70) 97 04/21/19 20:00 85 04/21/19 19:30 73 20 100 Nasal Cannula 2.0 28 70 18 98 04/21/19 16:00 98.2 106/65 (79) 04/21/19 15:56 81 04/21/19 15:15 75 18 99 Height (Feet): 5 Height (Inches): 5.00 Weight (Pounds): 156 Microbiology Date/Time Source Procedure Growth Status 04/20/19 14:00 Sputum Gram Stain - Final Complete 04/20/19 14:00 Sputum Sputum Culture - Final NORMAL UPPER RESPIRATORY A[place]REA AT 47 ... Complete Laboratory Tests Test 04/21/19 21:00 04/22/19 08:35 Stool Occult Blood Positive (NEGATIVE) White Blood Count 10.5 K/UL (4.8-10.8) Red Blood Count 3.02 M/UL (4.20-5.40) L Hemoglobin 9.2 G/DL (12.0-16.0) L Hematocrit 31.6 % (37.0-47.0) L Mean Corpuscular Volume 105 FL (80-99) H Mean Corpuscular Hemoglobin 30.7 PG (27.0-31.0) Mean Corpuscular Hemoglobin Concent 29.3 G/DL (32.0-36.0) L Red Cell Distribution Width 17.6 % (11.6-14.8) H Platelet Count 289 K/UL (150-450) Mean Platelet Volume 5.0 FL (6.5-10.1) L Neutrophils (%) (Auto) 63.7 % (45.0-75.0) Lymphocytes (%) (Auto) 21.2 % (20.0-45.0) Monocytes (%) (Auto) 12.9 % (1.0-10.0) H Eosinophils (%) (Auto) 1.6 % (0.0-3.0) Basophils (%) (Auto) 0.6 % (0.0-2.0) Sodium Level 142 MMOL/L (136-145) Potassium Level 4.2 MMOL/L (3.5-5.1) Chloride Level 105 MMOL/L (98-107) Carbon Dioxide Level 36 MMOL/L (21-32) H Anion Gap 1 mmol/L (5-15) L Blood Urea Nitrogen 8 mg/dL (7-18) Creatinine 1.0 MG/DL (0.55-1.30) Estimat Glomerular Filtration Rate mL/min (>60) Glucose Level 108 MG/DL (74-106) H Calcium Level 9.2 MG/DL (8.5-10.1) Current Medications Medications (Trade) Dose Ordered Sig/Kate Route PRN Reason Start Time Stop Time Status Last Admin Dose Admin Acetaminophen (Tylenol) 1,000 mg Q8H PRN ORAL For Pain 04/20/19 21:48 05/20/19 21:47 04/22/19 09:25 Albuterol Sulfate (Proventil) 2.5 mg Q4HRT HHN 04/20/19 23:00 04/24/19 22:59 04/22/19 08:05 Apixaban (Eliquis) 2.5 mg BID ORAL 04/21/19 09:00 05/19/19 19:43 04/22/19 09:26 Artificial Tears (Akwa-Tears) 1 drop DAILY BOTH EYES 04/21/19 09:00 05/20/19 08:59 04/22/19 11:12 Atorvastatin Calcium (Lipitor) 10 mg BEDTIME ORAL 04/21/19 21:00 05/19/19 20:59 04/21/19 21:25 Beclomethasone Dipropionate (Qvar 40 Inhaler) 2 puff TWICE A DAY INH 04/21/19 09:00 05/19/19 20:59 04/22/19 08:06 Dextrose (Dextrose 50%) 25 ml Q30M PRN IV Hypoglycemia 04/20/19 22:15 05/19/19 15:44 Dextrose (Dextrose 50%) 50 ml Q30M PRN IV Hypoglycemia 04/20/19 22:15 05/19/19 15:44 Docusate Sodium (Colace) 100 mg TWICE A DAY ORAL 04/21/19 09:00 05/20/19 08:59 Escitalopram Oxalate (Lexapro) 5 mg DAILY ORAL 04/21/19 09:00 05/20/19 08:59 04/22/19 09:26 Furosemide (Lasix) 20 mg QPM ORAL 04/21/19 16:30 05/20/19 08:59 04/21/19 16:58 Furosemide (Lasix) 40 mg DAILY ORAL 04/21/19 09:00 05/20/19 08:59 04/22/19 09:29 Iron Sucrose 100 mg/Sodium Chloride 60 ml @ 240 mls/hr BEDTIME IV 04/21/19 21:00 04/25/19 21:14 04/21/19 21:25 Magnesium Hydroxide (Mom) 30 ml Q8H PRN ORAL Constipation 04/20/19 21:49 05/20/19 21:48 Metoprolol Tartrate (Lopressor) 25 mg Q12HR ORAL 04/21/19 09:00 05/19/19 20:59 04/21/19 21:28 Pantoprazole (Protonix) 40 mg DAILY ORAL 04/21/19 09:00 05/20/19 08:59 04/22/19 09:26 Piperacillin Sod/ Tazobactam Sod 3.375 gm/Sodium Chloride 110 ml @ 27.5 mls/hr EVERY 8 HOURS IVPB 04/20/19 22:00 04/27/19 05:59 04/22/19 05:50 Polyethylene Glycol (Miralax) 17 gm Q8H PRN ORAL Constipation 04/20/19 21:49 05/20/19 21:48 Potassium Chloride (K-Dur) 40 meq TWICE A DAY ORAL 04/21/19 09:00 05/21/19 08:59 04/22/19 09:26 Sennosides (Senokot) 8.6 mg DAILY ORAL 04/21/19 09:00 05/20/19 08:59 Jori Anaya MD Apr 22, 2019 12:36
[2019-04-22] MEDS ORDERED: Tubing IV Secondary IV ONE (13:58)
--- NOTE | 2019-04-22 16:51 | NUR ---
NURSE NOTES: Left message for Dr. Moreno regarding pt's trending down BP. 0800 BP 101/56 HR 73, held BP meds, but gave Lasix after discussing with GAGE Gallo. [id number] BP 99/47 HR 62, at 1600 BP 90/46 HR 67, RN rechecked BP @1642 BP 94/41 HR 75. RN held 1630 dose of Lasix. Will await orders from Dr. Moreno.
--- NOTE | 2019-04-22 19:35 | NUR ---
NURSE NOTES: Received patient from Angelia RN. Patient in bed, alert and oriented x3, on 2L NC, no s/s of respiratory distress. Bed in low position, locked, bed alarm on, call light within reach. Left hand 24 gauge iv intact, patent, no signs of infiltration.
--- NOTE | 2019-04-22 19:35 | NUR ---
HAND-OFF: Report given to STEVEN May. Pt stable.
--- NOTE | 2019-04-22 20:11 | Pulmonology Progress Note ---
Assessment/Plan Assessment/Plan 1. COPD with respiratory failure off BiPAP. 2. Sick sinus syndrome. 3. Septic shock due to UTI 4. CHF 5. Hypertension. 6. Hyperlipidemia. 7. CKD. 8. GERD. 9. History of prior GI bleed. 10 posiitve tropoinin continued improvement no BiPAP alert, responsive cont rx mobilize rech trop cards to see iv abx nebs antiemetics Subjective Constitutional: Reports: no symptoms HEENT: Repors: no symptoms Respiratory: Reports: no symptoms Cardiovascular: Reports: no symptoms Gastrointestinal/Abdominal: Reports: nausea Genitourinary: Reports: no symptoms Allergies: Coded Allergies: No Known Allergies (Unverified , 06/05/14) Subjective sat in the chair most of the day on o2 mild nausea shortness of breath better no cp or fever toelrating po Objective Last 24 Hour Vital Signs Date Time Temp Pulse Resp B/P (MAP) Pulse Ox O2 Delivery O2 Flow Rate FiO2 04/22/19 19:59 66 18 99 Nasal Cannula 2.0 28 04/22/19 19:51 67 18 99 Nasal Cannula 2.0 28 04/22/19 19:49 98 Nasal Cannula 2.0 28 04/22/19 16:42 75 94/41 (58) 04/22/19 16:00 97.1 67 20 90/46 (61) 96 04/22/19 15:54 67 04/22/19 15:01 64 20 99 Nasal Cannula 2.0 28 65 20 98 04/22/19 12:13 62 04/22/19 12:00 97.5 62 18 99/47 (64) 98 04/22/19 10:52 62 20 99 Nasal Cannula 2.0 28 60 20 96 04/22/19 09:25 99.2 04/22/19 09:00 73 101/56 04/22/19 08:00 99.2 73 20 101/56 (71) 94 04/22/19 08:00 72 20 100 Nasal Cannula 2.0 28 71 20 97 04/22/19 08:00 Nasal Cannula 2.0 04/22/19 07:52 61 04/22/19 04:00 67 04/22/19 04:00 97.1 64 18 108/60 (76) 97 04/22/19 00:00 60 04/22/19 00:00 98.2 79 17 106/59 (75) 97 04/21/19 21:28 81 110/55 Intake and Output 04/21/19 04/22/19 18:59 06:59 Intake Total 500 ml Output Total 300 ml Balance 200 ml Intake Oral 500 ml Output Urine Total 300 ml # Voids 3 General Appearance: WD/WN Respiratory/Chest: rhonchi Cardiovascular: normal rate, regular rhythm Abdomen: distended Extremities: no cyanosis Skin: no rash, no ulcers Neurologic/Psychiatric: no motor/sensory deficits, alert, oriented x 3, responsive Microbiology Date/Time Source Procedure Growth Status 04/20/19 14:00 Sputum Gram Stain - Final Complete 04/20/19 14:00 Sputum Sputum Culture - Final NORMAL UPPER RESPIRATORY A[place]REA AT 47 ... Complete Laboratory Tests 04/21/19 21:00: Stool Occult Blood Positive 04/22/19 08:35: White Blood Count 10.5, Red Blood Count 3.02L, Hemoglobin 9.2L, Hematocrit 31.6L , Mean Corpuscular Volume 105H, Mean Corpuscular Hemoglobin 30.7, Mean Corpuscular Hemoglobin Concent 29.3L, Red Cell Distribution Width 17.6H, Platelet Count 289, Mean Platelet Volume 5.0L, Neutrophils (%) (Auto) 63.7, Lymphocytes (%) (Auto) 21.2, Monocytes (%) (Auto) 12.9H, Eosinophils (%) (Auto) 1.6, Basophils (%) (Auto) 0.6, Sodium Level 142, Potassium Level 4.2, Chloride Level 105, Carbon Dioxide Level 36H, Anion Gap 1L, Blood Urea Nitrogen 8, Creatinine 1.0, Estimat Glomerular Filtration Rate , Glucose Level 108H, Calcium Level 9.2 Current Medications Medications (Trade) Dose Ordered Sig/Kate Route PRN Reason Start Time Stop Time Status Last Admin Dose Admin Acetaminophen (Tylenol) 1,000 mg Q8H PRN ORAL For Pain 04/20/19 21:48 05/20/19 21:47 04/22/19 09:25 Albuterol Sulfate (Proventil) 2.5 mg Q4HRT HHN 04/20/19 23:00 04/24/19 22:59 04/22/19 19:51 Apixaban (Eliquis) 2.5 mg BID ORAL 04/21/19 09:00 05/19/19 19:43 04/22/19 17:02 Artificial Tears (Akwa-Tears) 1 drop DAILY BOTH EYES 04/21/19 09:00 05/20/19 08:59 04/22/19 11:12 Atorvastatin Calcium (Lipitor) 10 mg BEDTIME ORAL 04/21/19 21:00 05/19/19 20:59 04/21/19 21:25 Beclomethasone Dipropionate (Qvar 40 Inhaler) 2 puff TWICE A DAY INH 04/21/19 09:00 05/19/19 20:59 04/22/19 19:50 Dextrose (Dextrose 50%) 25 ml Q30M PRN IV Hypoglycemia 04/20/19 22:15 05/19/19 15:44 Dextrose (Dextrose 50%) 50 ml Q30M PRN IV Hypoglycemia 04/20/19 22:15 05/19/19 15:44 Docusate Sodium (Colace) 100 mg TWICE A DAY ORAL 04/21/19 09:00 05/20/19 08:59 04/22/19 17:02 Escitalopram Oxalate (Lexapro) 5 mg DAILY ORAL 04/21/19 09:00 05/20/19 08:59 04/22/19 09:26 Furosemide (Lasix) 20 mg QPM ORAL 04/21/19 16:30 05/20/19 08:59 04/21/19 16:58 Furosemide (Lasix) 40 mg DAILY ORAL 04/21/19 09:00 05/20/19 08:59 04/22/19 09:29 Iron Sucrose 100 mg/Sodium Chloride 60 ml @ 240 mls/hr BEDTIME IV 04/21/19 21:00 04/25/19 21:14 04/21/19 21:25 Magnesium Hydroxide (Mom) 30 ml Q8H PRN ORAL Constipation 04/20/19 21:49 05/20/19 21:48 Meropenem 1 gm/ Sodium Chloride 55 ml @ 110 mls/hr Q12HR IVPB 04/22/19 21:00 04/27/19 20:59 Metoprolol Tartrate (Lopressor) 25 mg Q12HR ORAL 04/21/19 09:00 05/19/19 20:59 04/21/19 21:28 Pantoprazole (Protonix) 40 mg DAILY ORAL 04/21/19 09:00 05/20/19 08:59 04/22/19 09:26 Piperacillin Sod/ Tazobactam Sod 3.375 gm/Sodium Chloride 110 ml @ 27.5 mls/hr EVERY 8 HOURS IVPB 04/20/19 22:00 04/27/19 05:59 04/22/19 13:34 Polyethylene Glycol (Miralax) 17 gm Q8H PRN ORAL Constipation 04/20/19 21:49 05/20/19 21:48 Potassium Chloride (K-Dur) 40 meq TWICE A DAY ORAL 04/21/19 09:00 05/21/19 08:59 04/22/19 17:04 Sennosides (Senokot) 8.6 mg DAILY ORAL 04/21/19 09:00 05/20/19 08:59 Keren Bernal DO Apr 22, 2019 20:11
[2019-04-22] MEDS: Iron Sucrose 100 MG in NS 55 ML IV SCH (20:19)
[2019-04-22] MEDS: Meropenem 1 GM in NS 55 ML IVPB SCH (21:45)
[2019-04-23] VITALS (7 sets, daily range): BP systolic 90–126; BP diastolic 46–76
[2019-04-23] MEDS: Albuterol ud Inhalation HHN SCH ×6 (03:28→22:25)
--- NOTE | 2019-04-23 05:19 | NUR ---
CASE MANAGEMENT: REVIEW 04/23/2019 SI: SEPSIS. T 98.6 HR 73 RR 18 B/P 126/76 SATS 97% ON 2L/NC CBC PENDING IS: ZOSYN IV Q8H BECLOMETHASONE INH BID K DUR PO BID LIPITOR PO QHS VENOFER IV QHS ELIQUIS PO BID LEXAPRO PO QD LASIX PO QD PROTONIX PO QD LOPRESSOR PO Q12H MEROPENEM IV Q12H LASIX PO QPM TELE STATUS PLAN OF CARE: CXR
[2019-04-23] MEDS: Piperacillin/Tazobactam 3.375 GM in NS 110 ML IVPB SCH (05:48)
[2019-04-23] MEDS: Acetaminophen 500mg (ES) tab ORAL PRN ×2 (05:50→15:50)
[2019-04-23] MEDS: Qvar 40mcg Inhaler 6.8 gm INH SCH ×2 (07:33→19:17)
--- NOTE | 2019-04-23 07:35 | NUR ---
NURSE NOTES: Received report from Lalo HARRIS. Pt in bed and awake and orientedx3 and able to make needs known. IV site in left hand 24G SL patient and asymptomatic. No c/o pain. No acute distress noted. Call light within easy reach. Bed i lowest position and locked. Will continue to plan of care.
[2019-04-23] MEDS: Sennosides 8.6mg tab ORAL SCH (08:42)
[2019-04-23] MEDS: Meropenem 1 GM in NS 55 ML IVPB SCH ×2 (08:42→21:52)
[2019-04-23] MEDS: Docusate 100mg cap ORAL SCH ×2 (08:43→17:24)
[2019-04-23] MEDS: Eliquis 2.5mg tablet ORAL SCH (08:44)
[2019-04-23] MEDS: Furosemide 40mg tab ORAL SCH (08:44)
[2019-04-23 08:45] LABS: BASOPHILS % (AUTO) 0.8 % (0.0-2.0); EOSINOPHILS % (AUTO) 2.1 % (0.0-3.0); HEMATOCRIT 29.8 % (37.0-47.0); HEMOGLOBIN 9.1 G/DL (12.0-16.0); LYMPHOCYTES % (AUTO) 14.8 % (20.0-45.0); MEAN CORPUSCULAR VOLUME 104 FL (80-99); MONOCYTES % (AUTO) 7.8 % (1.0-10.0); NEUTROPHILS % (AUTO) 74.4 % (45.0-75.0); PLATELET COUNT 324 K/UL (150-450); RED BLOOD COUNT 2.86 M/UL (4.20-5.40); RED CELL DISTRIBUTION WIDTH 17.5 % (11.6-14.8)
[2019-04-23] MEDS: Metoprolol 25mg tab ORAL SCH ×2 (08:45→21:00)
[2019-04-23 08:50] LABS: ALANINE AMINOTRANSFERASE 38 U/L (12-78); ALBUMIN 2.5 G/DL (3.4-5.0); ALBUMIN/GLOBULIN RATIO 0.6 (1.0-2.7); ALKALINE PHOSPHATASE 140 U/L (46-116); ANION GAP 4 mmol/L (5-15); ASPARTATE AMINO TRANSFERASE 24 U/L (15-37); BILIRUBIN,TOTAL 0.3 MG/DL (0.2-1.0); BLOOD UREA NITROGEN 8 mg/dL (7-18); CALCIUM 9.2 MG/DL (8.5-10.1); CARBON DIOXIDE 36 MMOL/L (21-32); CHLORIDE 103 MMOL/L (98-107); CREATININE 1.1 MG/DL (0.55-1.30); POTASSIUM 4.1 MMOL/L (3.5-5.1); SODIUM 143 MMOL/L (136-145)
--- NOTE | 2019-04-23 08:59 | NUR ---
NURSE NOTES: Dr. Moreno paged for elevated Trop I result with 1.781. Dr. Daigle replied and no new order received.
--- NOTE | 2019-04-23 09:29 | Diagnostic Imaging Report ---
EXAM: XR Chest, 1 View CLINICAL HISTORY: INFECT TECHNIQUE: Frontal view of the chest. COMPARISON: Chest x-rays dated 04 19 19 FINDINGS: Lungs: Increased reticular interstitial markings, most prominent in the upper lung zones. Mild linear atelectasis versus scarring in the right perihilar region. Pleural space: Unremarkable. The costophrenic angles are sharp. No visible pneumothorax. Heart: Unremarkable. No cardiomegaly. Mediastinum: Unremarkable. Bones joints: Unremarkable. Vasculature: Atherosclerotic calcifications are noted within the aortic arch. Tubes, lines and devices: Telemetry leads overlie the thorax. IMPRESSION: Increased reticular interstitial markings, most prominent in the upper lung zones. This may represent interstitial pneumonitis or bronchitis.
--- NOTE | 2019-04-23 12:39 | General Progress Note ---
Assessment/Plan Problem List: (1) Sepsis ICD Codes: A41.9 - Sepsis SNOMED: 31885769 (2) COPD (chronic obstructive pulmonary disease) ICD Codes: J44.9 - Chronic obstructive pulmonary disease, unspecified SNOMED: 49490777 (3) Episode of generalized weakness ICD Codes: R53.1 - Weakness SNOMED: 43521788 (4) Paroxysmal A-fib ICD Codes: I48.0 - Paroxysmal atrial fibrillation SNOMED: 646418873 (5) Hypotension ICD Codes: I95.9 - Hypotension, unspecified SNOMED: 30734293 (6) CHF (congestive heart failure) ICD Codes: I50.9 - Heart failure, unspecified SNOMED: 74089236 (7) Myocardial infarct ICD Codes: I21.3 - ST elevation (STEMI) myocardial infarction of unspecified site SNOMED: 40717868 (8) Cerebral vascular accident ICD Codes: I63.9 - Cerebral infarction, unspecified SNOMED: 866739353 (9) Urinary tract infection ICD Codes: N39.0 - Urinary tract infection, site not specified SNOMED: 83727318 (10) Respiratory acidosis ICD Codes: E87.2 - Acidosis SNOMED: 10381609 Assessment/Plan: improved, start diet, dc iv fluids, continueantibiotics, +esbl, ID to see, meropenam orders updated,,mobilize, check cultures Subjective Constitutional: Reports: weakness HEENT: Reports: no symptoms Cardiovascular: Reports: no symptoms Respiratory: Reports: SOB with excertion Gastrointestinal/Abdominal: Reports: no symptoms Genitourinary: Reports: incontinence Neurologic/Psychiatric: Reports: pre-existing deficit Endocrine: Reports: no symptoms Hematologic/Lymphatic: Reports: anemia Allergies: Coded Allergies: No Known Allergies (Unverified , 06/05/14) Objective Last 24 Hour Vital Signs Date Time Temp Pulse Resp B/P (MAP) Pulse Ox O2 Delivery O2 Flow Rate FiO2 04/23/19 10:30 72 18 97 Nasal Cannula 2.0 28 04/23/19 09:49 98.5 69 18 111/56 (74) 99 69 04/23/19 08:45 67 90/47 04/23/19 08:00 98.5 67 18 90/47 (61) 99 67 04/23/19 08:00 71 04/23/19 07:20 72 18 98 70 18 98 04/23/19 07:20 98 Nasal Cannula 2.0 28 04/23/19 07:01 98.3 04/23/19 04:00 68 04/23/19 04:00 98.3 76 16 106/53 (70) 99 04/23/19 00:00 98.6 77 18 126/76 (93) 97 04/23/19 00:00 73 04/22/19 23:35 70 18 99 Nasal Cannula 2.0 28 04/22/19 23:25 72 18 97 Nasal Cannula 2.0 28 04/22/19 21:00 66 94/41 04/22/19 21:00 Nasal Cannula 2.0 04/22/19 20:00 72 04/22/19 20:00 98.8 69 18 104/50 (68) 99 04/22/19 19:59 66 18 99 Nasal Cannula 2.0 28 04/22/19 19:51 67 18 99 Nasal Cannula 2.0 28 04/22/19 19:49 98 Nasal Cannula 2.0 28 04/22/19 16:42 75 94/41 (58) 04/22/19 16:00 97.1 67 20 90/46 (61) 96 04/22/19 15:54 67 04/22/19 15:01 64 20 99 Nasal Cannula 2.0 28 65 20 98 Intake and Output 04/22/19 04/23/19 19:00 07:00 Intake Total 300 ml 240 ml Output Total 600 ml Balance 300 ml -360 ml Intake Oral 300 ml 240 ml Output Urine Total 600 ml # Voids 2 1 Laboratory Tests 04/23/19 07:50: White Blood Count 12.0H, Red Blood Count 2.86L, Hemoglobin 9.1L, Hematocrit 29.8L, Mean Corpuscular Volume 104H, Mean Corpuscular Hemoglobin 31.6H, Mean Corpuscular Hemoglobin Concent 30.4L, Red Cell Distribution Width 17.5H, Platelet Count 324, Mean Platelet Volume 5.0L, Neutrophils (%) (Auto) 74.4, Lymphocytes (%) (Auto) 14.8L, Monocytes (%) (Auto) 7.8, Eosinophils (%) (Auto) 2.1, Basophils (%) (Auto) 0.8, Sodium Level 143, Potassium Level 4.1, Chloride Level 103, Carbon Dioxide Level 36H, Anion Gap 4L, Blood Urea Nitrogen 8, Creatinine 1.1, Estimat Glomerular Filtration Rate , Glucose Level 127H, Calcium Level 9.2, Magnesium Level 1.7L, Total Bilirubin 0.3, Aspartate Amino Transf (AST/SGOT) 24, Alanine Aminotransferase (ALT/SGPT) 38, Alkaline Phosphatase 140H, Troponin I 0.781H, Total Protein 6.9, Albumin 2.5L, Globulin 4.4, Albumin/Globulin Ratio 0.6L Height (Feet): 5 Height (Inches): 5.00 Weight (Pounds): 158 General Appearance: no apparent distress, alert EENT: normal ENT inspection Neck: normal alignment Cardiovascular: regular rhythm Respiratory/Chest: lungs clear, decreased breath sounds Abdomen: non tender Edema: no edema noted Arm (L), no edema noted Arm (R), no edema noted Leg (L), no edema noted Leg (R), no edema noted Pedal (L), no edema noted Pedal (R), no edema noted Generalized Neurologic: motor weakness Pastor Bowen MD Apr 23, 2019 12:39
--- NOTE | 2019-04-23 14:53 | Infectious Diseases Prog Note ---
Assessment/Plan Assessment/Plan Full consult dictated: A) 1) complicated esbl e.coli uti/pyelonephritis, ? CAP 2) sepsis, leukocytosis, fevers 3) pmh noted 4) allergies - nkda P) 1) meropenem - day # 2 2) check cultures, labs and chest x-ray 3) will f/u Subjective Constitutional: Denies: fever HEENT: Reports: congestion Respiratory: Reports: shortness of breath Cardiovascular: Denies: chest pain Gastrointestinal/Abdominal: Denies: nausea, vomiting, diarrhea Genitourinary: Reports: other - no hicks Allergies: Coded Allergies: No Known Allergies (Unverified , 06/05/14) Objective Vital Signs Last 24 Hour Vital Signs Date Time Temp Pulse Resp B/P (MAP) Pulse Ox O2 Delivery O2 Flow Rate FiO2 04/23/19 14:36 71 18 97 Nasal Cannula 2.0 28 04/23/19 10:30 72 18 97 Nasal Cannula 2.0 28 04/23/19 09:49 98.5 69 18 111/56 (74) 99 69 04/23/19 08:45 67 90/47 04/23/19 08:00 98.5 67 18 90/47 (61) 99 67 04/23/19 08:00 71 04/23/19 07:20 72 18 98 70 18 98 04/23/19 07:20 98 Nasal Cannula 2.0 28 04/23/19 07:01 98.3 04/23/19 04:00 68 04/23/19 04:00 98.3 76 16 106/53 (70) 99 04/23/19 00:00 98.6 77 18 126/76 (93) 97 04/23/19 00:00 73 04/22/19 23:35 70 18 99 Nasal Cannula 2.0 28 04/22/19 23:25 72 18 97 Nasal Cannula 2.0 28 04/22/19 21:00 66 94/41 04/22/19 21:00 Nasal Cannula 2.0 04/22/19 20:00 72 04/22/19 20:00 98.8 69 18 104/50 (68) 99 04/22/19 19:59 66 18 99 Nasal Cannula 2.0 28 04/22/19 19:51 67 18 99 Nasal Cannula 2.0 28 04/22/19 19:49 98 Nasal Cannula 2.0 28 04/22/19 16:42 75 94/41 (58) 04/22/19 16:00 97.1 67 20 90/46 (61) 96 04/22/19 15:54 67 04/22/19 15:01 64 20 99 Nasal Cannula 2.0 28 65 20 98 Height (Feet): 5 Height (Inches): 5.00 Weight (Pounds): 158 General Appearance: WD/WN, no acute distress HEENT: atraumatic, anicteric, mucous membranes moist Respiratory/Chest: lungs clear, normal breath sounds, no respiratory distress, crackles/rales, rhonchi - bilaterally Cardiovascular: normal rate, regular rhythm Abdomen: no organomegaly, non distended Laboratory Tests Test 04/23/19 07:50 White Blood Count 12.0 K/UL (4.8-10.8) H Red Blood Count 2.86 M/UL (4.20-5.40) L Hemoglobin 9.1 G/DL (12.0-16.0) L Hematocrit 29.8 % (37.0-47.0) L Mean Corpuscular Volume 104 FL (80-99) H Mean Corpuscular Hemoglobin 31.6 PG (27.0-31.0) H Mean Corpuscular Hemoglobin Concent 30.4 G/DL (32.0-36.0) L Red Cell Distribution Width 17.5 % (11.6-14.8) H Platelet Count 324 K/UL (150-450) Mean Platelet Volume 5.0 FL (6.5-10.1) L Neutrophils (%) (Auto) 74.4 % (45.0-75.0) Lymphocytes (%) (Auto) 14.8 % (20.0-45.0) L Monocytes (%) (Auto) 7.8 % (1.0-10.0) Eosinophils (%) (Auto) 2.1 % (0.0-3.0) Basophils (%) (Auto) 0.8 % (0.0-2.0) Sodium Level 143 MMOL/L (136-145) Potassium Level 4.1 MMOL/L (3.5-5.1) Chloride Level 103 MMOL/L (98-107) Carbon Dioxide Level 36 MMOL/L (21-32) H Anion Gap 4 mmol/L (5-15) L Blood Urea Nitrogen 8 mg/dL (7-18) Creatinine 1.1 MG/DL (0.55-1.30) Estimat Glomerular Filtration Rate mL/min (>60) Glucose Level 127 MG/DL (74-106) H Calcium Level 9.2 MG/DL (8.5-10.1) Magnesium Level 1.7 MG/DL (1.8-2.4) L Total Bilirubin 0.3 MG/DL (0.2-1.0) Aspartate Amino Transf (AST/SGOT) 24 U/L (15-37) Alanine Aminotransferase (ALT/SGPT) 38 U/L (12-78) Alkaline Phosphatase 140 U/L (46-116) H Troponin I 0.781 ng/mL (0.000-0.056) Total Protein 6.9 G/DL (6.4-8.2) Albumin 2.5 G/DL (3.4-5.0) L Globulin 4.4 g/dL Albumin/Globulin Ratio 0.6 (1.0-2.7) L Current Medications Medications (Trade) Dose Ordered Sig/Kate Route PRN Reason Start Time Stop Time Status Last Admin Dose Admin Acetaminophen (Tylenol) 1,000 mg Q8H PRN ORAL For Pain 04/20/19 21:48 05/20/19 21:47 04/23/19 05:50 Albuterol Sulfate (Proventil) 2.5 mg Q4HRT HHN 04/20/19 23:00 04/24/19 22:59 04/23/19 14:37 Artificial Tears (Akwa-Tears) 1 drop DAILY BOTH EYES 04/21/19 09:00 05/20/19 08:59 04/23/19 08:42 Atorvastatin Calcium (Lipitor) 10 mg BEDTIME ORAL 04/21/19 21:00 05/19/19 20:59 04/22/19 20:17 Beclomethasone Dipropionate (Qvar 40 Inhaler) 2 puff TWICE A DAY INH 04/21/19 09:00 05/19/19 20:59 04/22/19 19:50 Dextrose (Dextrose 50%) 25 ml Q30M PRN IV Hypoglycemia 04/20/19 22:15 05/19/19 15:44 Dextrose (Dextrose 50%) 50 ml Q30M PRN IV Hypoglycemia 04/20/19 22:15 05/19/19 15:44 Docusate Sodium (Colace) 100 mg TWICE A DAY ORAL 04/21/19 09:00 05/20/19 08:59 04/23/19 08:43 Escitalopram Oxalate (Lexapro) 5 mg DAILY ORAL 04/21/19 09:00 05/20/19 08:59 04/23/19 08:44 Furosemide (Lasix) 20 mg QPM ORAL 04/21/19 16:30 05/20/19 08:59 04/21/19 16:58 Furosemide (Lasix) 40 mg DAILY ORAL 04/21/19 09:00 05/20/19 08:59 04/22/19 09:29 Iron Sucrose 100 mg/Sodium Chloride 60 ml @ 240 mls/hr BEDTIME IV 04/21/19 21:00 04/25/19 21:14 04/22/19 20:19 Magnesium Hydroxide (Mom) 30 ml Q8H PRN ORAL Constipation 04/20/19 21:49 05/20/19 21:48 Meropenem 1 gm/ Sodium Chloride 55 ml @ 110 mls/hr Q12HR IVPB 04/22/19 21:00 04/27/19 20:59 04/23/19 08:42 Metoprolol Tartrate (Lopressor) 25 mg Q12HR ORAL 04/21/19 09:00 05/19/19 20:59 04/21/19 21:28 Pantoprazole (Protonix) 40 mg DAILY ORAL 04/21/19 09:00 05/20/19 08:59 04/23/19 08:42 Polyethylene Glycol (Miralax) 17 gm Q8H PRN ORAL Constipation 04/20/19 21:49 05/20/19 21:48 Potassium Chloride (K-Dur) 40 meq TWICE A DAY ORAL 04/21/19 09:00 05/21/19 08:59 04/22/19 17:04 Sennosides (Senokot) 8.6 mg DAILY ORAL 04/21/19 09:00 05/20/19 08:59 04/23/19 08:42 Jori Anaya MD Apr 23, 2019 14:53
--- NOTE | 2019-04-23 18:00 | Consultation ---
DATE OF CONSULTATION: 04/23/2019 INFECTIOUS DISEASES CONSULTATION ATTENDING PHYSICIAN: Pastor Bowen M.D. REFERRING PHYSICIAN: Pastor Bowen M.D. REASON FOR CONSULTATION: ESBL E. coli UTI, possible pneumonia, sepsis, fevers, and leukocytosis. CHIEF COMPLAINT: The patient's chief complaint coming into the hospital is sepsis and UTI. HISTORY OF PRESENT ILLNESS: This is a very pleasant 79-year-old female, who comes in to [facility] with fevers and elevated white count. The patient likely was septic. Workup shows that she has complicated ESBL E. coli UTI sensitive to meropenem. The patient was seen yesterday and started on meropenem for the complicated ESBL E. coli UTI. The patient also could have community-acquired pneumonia. She has congestion and possible infiltrates on chest x-ray. Also, she was septic with fevers and elevated white count. Her lactic acid was also elevated to 2.3. The patient will continue on meropenem for now. MAR was noted. Orders were noted. Notes were reviewed. Case discussed with RN. REVIEW OF SYSTEMS: CONSTITUTIONAL: She has no central line. No Ramirez. She has generalized fatigue. She came in with fever and chills. HEAD AND NECK: No head pain or neck pain. No neck stiffness. No thrush or dysphagia. CARDIAC: No chest pain or palpitations. No pressors. GASTROINTESTINAL: No nausea, vomiting, abdominal pain, diarrhea. : She came in with dysuria and frequency. No CVA tenderness. No Ramirez. PULMONARY: Mild cough and congestion. No hemoptysis. SKIN: No rash or itching. EXTREMITIES: No extremity pain. NEUROLOGIC: No seizures. No neck stiffness. Generalized fatigue. No focal weakness. PAST MEDICAL HISTORY: The patient has past medical history of following. The patient has a past medical history of COPD, CHF, CO2 retention, history of CVA, history of aspiration risk, paroxysmal atrial fibrillation, history of carotid endarterectomy, history of foot surgeries, COPD, CHF, hypertension, and paroxysmal atrial fibrillation. She has history of already mentioned CVA. She also has history of hypertensive heart disease, coronary atherosclerosis, history of dyslipidemia and hyperlipidemia, history of type 2 diabetes mellitus, history of chronic kidney disease, GERD, pulmonary hypertension, hypercapnia and degenerative valve disease. ALLERGIES: She has no known drug allergies. No antibiotic allergies. SOCIAL HISTORY: Negative for smoking, alcohol, or drug abuse. FAMILY HISTORY: Noncontributory. Negative for tuberculosis or cancer. MEDICATIONS: Upon reviewing the MAR, she is on the following medications. She is on meropenem and atorvastatin. She is on furosemide docusate. She is on Lexapro, Lasix, Lopressor, Protonix, Senokot, K-Dur, Proventil, and meropenem. She is on magnesium hydroxide, polyethylene, and acetaminophen. Outside medications were noted and reconciliated. PHYSICAL EXAMINATION: VITAL SIGNS: Temperature is 98.5 degrees, pulse rate 69, respiratory rate 18, blood pressure 111/56, saturation 99%, T-max 101.9, respiratory rate as high as 27. GENERAL: Alert and responsive, no acute distress, responsive. HEAD AND NECK: Oral exam, no thrush. Eye exam, no icterus. Normocephalic. Neck is supple. No JVD. No icterus or thrush. HEART: Regular. 1/6 systolic murmur, possible gallop. No friction rub. ABDOMEN: Soft. Positive bowel sounds. Nontender. No rebound. LUNGS: Few bilateral rhonchi, rales, and crackles. SKIN: No rash. MUSCULOSKELETAL: No effusions. Legs without cellulitis. PERIPHERAL: No gangrene. No septic arthritis. GENITOURINARY: No Ramirez. No CVA tenderness. LINE SITES: Line sites are without phlebitis. NEUROLOGIC: Intact and nonfocal. Some generalized weakness. She is alert and responsive. LABORATORY AND DIAGNOSTIC DATA: Laboratory data is as follows. Creatinine 1.1, white count 12.0, hemoglobin 9.1, and white count as high as 12.4. Urinalysis had 3+ leukocyte esterase, too many to count white blood cells. Cultures, sputum culture had normal raymon. Blood cultures are negative. Urine culture with ESBL E. coli. Chest x-ray on March 24, 2019 showed reticular interstitial markings in the upper lung zones. This could be interstitial pneumonitis or bronchitis. ASSESSMENT AND PLAN: 1. The patient has complicated extended-spectrum beta-lactamases Escherichia coli urinary tract infection and pyelonephritis with possible community-acquired pneumonia versus aspiration pneumonia. The patient is at risk for aspiration, history of cerebrovascular accident, and infiltrates in the upper lung area. At this time, she is also septic with fevers, leukocytosis, elevated lactic acid level. She had systemic inflammatory response syndrome criteria. At this time, we will continue meropenem. This is day #2. Dose for her age is 1 g q.12 h. Continue meropenem for complicated extended-spectrum beta-lactamases Escherichia coli complicated urinary tract infection and pyelonephritis with sepsis, elevated white count, fevers, and pneumonia. This is day #2 of meropenem. Plan 10-day course of antibiotics. Monitor chest x-ray and laboratories. 2. Hypertension. 3. Diabetes. 4. Dyslipidemia. 5. Blood sugar and blood pressure treatment for diabetes and hypertension per primary consultants. 6. Congestive heart failure. 7. Valvular heart disease. 8. Anemia. 9. Gastroesophageal reflux disease. 10. Chronic obstructive pulmonary disease. 11. Congestive heart failure. 12. Hypertensive heart disease. 13. Coronary arthrosclerosis. 14. Cerebrovascular accident with right hemiparesis. 15. Chronic kidney disease. 16. No known drug allergies. 17. Social history negative. 18. Family history noncontributory. 19. MAR is noted. 20. Case discussed with RN. 21. Continue treatment per primary consultants. 22. Notes and records were noted. 23. Orders were entered. 24. Past medical history is noted. Jori Anaya M.D. DR: Rom JOB#: [id number] CC:
--- NOTE | 2019-04-23 18:30 | Progress Note ---
DATE: 04/21/2019 This is a late entry for April 21, 2019 SUBJECTIVE: The patient was seen and evaluated. Case discussed with Dr. Bowen. The patient's blood pressure parameters have been low. This was discussed with nursing staff and hold parameters on medications were reviewed as well. The patient still has congestion but is not requiring any BiPAP support at this time. Monitored rhythm, sinus with paroxysms of atrial fibrillation. PHYSICAL EXAMINATION: LUNGS: Few rhonchi. HEART: Regular rhythm and rate. Normal S1, S2 with a 1/6 systolic apical murmur. ABDOMEN: Soft. EXTREMITIES: No edema. LABORATORY DATA: Troponin is up to 1.38, BUN 10, creatinine 1.1, potassium 3.5. White count 8.6, hemoglobin 8.5. IMPRESSION: 1. Sepsis with shock. 2. Acute myocardial infarction. 3. Paroxysmal atrial fibrillation. 4. Cardiogenic insufficiency. 5. Acute on chronic respiratory acidosis. 6. Status post respiratory failure. 7. Hypokalemia. 8. Critical and guarded. PLAN: 1. Hold intravenous fluids. 2. Continue antimicrobials and respiratory hygiene. 3. Cautious titration of diuretics and anti-anginal regimen. 4. Cardiac monitoring. 5. Maintain beta-román as tolerated by blood pressure parameters. 6. Full anticoagulation for cardioembolic prophylaxis. 7. The patient remains high risk. Jan Moreno M.D. DR: Carlos JOB#: [id number] CC:
--- NOTE | 2019-04-23 19:00 | Progress Note ---
DATE: 04/23/2019 CARDIOLOGY PROGRESS NOTE SUBJECTIVE: The patient has no new complaints. She denies chest pain or shortness of breath. Antibiotics have been adjusted by Infectious Disease consultant intern. OBJECTIVE: VITAL SIGNS: Blood pressure 93/46, pulse 73, and respiratory rate 20. LUNGS: Diminished breath sounds. Few rhonchi. HEART: Regular rhythm and rate. Normal S1 and S2 with a 1/6 systolic apical murmur. Monitored rhythm now sinus. ABDOMEN: Soft. EXTREMITIES: No edema. LABORATORY AND DIAGNOSTIC DATA: White count 12 and hemoglobin 9.1. BUN 8, creatinine 1.1, potassium 4.1, and magnesium 1.7. Troponin 0.781 and albumin 2.5. IMPRESSION: 1. Extended-spectrum beta-lactamases urinary tract infection with sepsis and shock. 2. Acute myocardial infarction. 3. Acute on chronic diastolic congestive heart failure, clinically compensated. 4. Acute on chronic respiratory acidosis, now compensated. 5. Acute respiratory failure, resolved. 6. Paroxysmal atrial fibrillation on chronic anticoagulation. 7. History of cerebrovascular accident with hemiparesis. 8. Hypomagnesemia. PLAN: 1. Antimicrobials. 2. Respiratory hygiene. 3. Hold today's dose of diuretic. 4. Beta-román as tolerated by low range blood pressure. 5. Continue full anticoagulation. 6. Follow up troponin level. 7. IV magnesium. Jan Moreno M.D. DR: Mary JOB#: [id number] CC:
--- NOTE | 2019-04-23 19:00 | Progress Note ---
DATE: 04/22/2019 Late entry April 22, 2019 SUBJECTIVE: Blood pressure parameters remain low. The patient has episodes of rapid atrial fibrillation. No complaints of chest pain. No shortness of breath, off BiPAP. Cultures are positive for ESBL pathogen. PHYSICAL EXAMINATION: VITAL SIGNS: Blood pressure 101/56, pulse 73, respiratory rate 20, temperature 99.2. LUNGS: Coarse breath sounds. Scattered rhonchi. HEART: Irregularly irregular rhythm. Normal S1, S2. ABDOMEN: Soft. EXTREMITIES: No edema. LABORATORY DATA: White count 10.5, hemoglobin 9.2. Potassium 4.2, BUN 8, and creatinine 1. IMPRESSION: 1. Urinary tract infection with sepsis and shock. 2. Acute myocardial infarction. 3. Cardiogenic insufficiency. 4. Paroxysmal atrial fibrillation with rapid ventricular response. 5. Chronic obstructive pulmonary disease. 6. Acute on chronic respiratory acidosis, now compensated status post respiratory failure. 7. Acute on chronic diastolic congestive heart failure. 8. Remains high risk. PLAN: 1. Avoid over-diuresis. 2. Continue beta-román with hold parameters for low blood pressure. 3. Antimicrobials per Infectious Diseases jewelry consultant. 4. Respiratory hygiene. 5. Fluid challenge for lower blood pressure. 6. Continue full anticoagulation. 7. Cardiac monitoring. Jan Moreno M.D. DR: Carlos JOB#: [id number] CC:
--- NOTE | 2019-04-23 19:15 | NUR ---
NURSE NOTES: Received pt and report from STEVEN Rodriguez. Observed pt resting in bed with both eyes open. Pt is A/Ox3. security monitor is in placed, IV site intact, asymptomatic, and patent. Bed is in the lowest position and locked. Call light within reach. No signs/symptoms of acute distress noted at this time. Will continue plan of care.
--- NOTE | 2019-04-23 19:24 | NUR ---
HAND-OFF: Report given to Sabrina RN. Pt remains stable.
--- NOTE | 2019-04-23 21:03 | Pulmonology Progress Note ---
Assessment/Plan Assessment/Plan 1. COPD with respiratory failure off BiPAP. 2. Sick sinus syndrome. 3. Septic shock due to UTI 4. CHF 5. Hypertension. 6. Hyperlipidemia. 7. CKD. 8. GERD. 9. History of prior GI bleed. 10 posiitve tropoinin continued improvement no BiPAP appreicate cards eval alert, responsive cont rx mobilize iv abx nebs antiemetics Subjective HEENT: Repors: no symptoms Respiratory: Reports: no symptoms Gastrointestinal/Abdominal: Reports: no symptoms Genitourinary: Reports: no symptoms Allergies: Coded Allergies: No Known Allergies (Unverified , 06/05/14) Subjective doing well on o2 mild nausea shortness of breath better no cp or fever tolerating po Objective Last 24 Hour Vital Signs Date Time Temp Pulse Resp B/P (MAP) Pulse Ox O2 Delivery O2 Flow Rate FiO2 04/23/19 19:33 90 18 100 Nasal Cannula 2.0 28 04/23/19 19:19 97 Nasal Cannula 2.0 28 04/23/19 19:19 89 18 97 Nasal Cannula 2.0 28 04/23/19 16:00 80 04/23/19 16:00 98.4 75 18 101/59 (73) 100 75 04/23/19 14:36 71 18 97 Nasal Cannula 2.0 28 04/23/19 12:00 72 04/23/19 12:00 98.7 73 20 93/46 (62) 98 73 04/23/19 10:30 72 18 97 Nasal Cannula 2.0 28 04/23/19 09:49 98.5 69 18 111/56 (74) 99 69 04/23/19 08:45 67 90/47 04/23/19 08:00 98.5 67 18 90/47 (61) 99 67 04/23/19 08:00 71 04/23/19 07:20 72 18 98 70 18 98 04/23/19 07:20 98 Nasal Cannula 2.0 28 04/23/19 07:01 98.3 04/23/19 04:00 68 04/23/19 04:00 98.3 76 16 106/53 (70) 99 04/23/19 00:00 98.6 77 18 126/76 (93) 97 04/23/19 00:00 73 04/22/19 23:35 70 18 99 Nasal Cannula 2.0 28 04/22/19 23:25 72 18 97 Nasal Cannula 2.0 28 Intake and Output 04/22/19 04/23/19 18:59 06:59 Intake Total 300 ml 240 ml Output Total 600 ml Balance 300 ml -360 ml Intake Oral 300 ml 240 ml Output Urine Total 600 ml # Voids 2 1 HEENT: atraumatic, anicteric Respiratory/Chest: no respiratory distress, rhonchi Cardiovascular: normal peripheral pulses, normal rate, regular rhythm Abdomen: soft, non tender, no organomegaly, no mass Extremities: no clubbing Neurologic/Psychiatric: track maintainer II-XII grossly normal, abnormal gait, alert, oriented x 3 Laboratory Tests 04/23/19 07:50: White Blood Count 12.0H, Red Blood Count 2.86L, Hemoglobin 9.1L, Hematocrit 29.8L, Mean Corpuscular Volume 104H, Mean Corpuscular Hemoglobin 31.6H, Mean Corpuscular Hemoglobin Concent 30.4L, Red Cell Distribution Width 17.5H, Platelet Count 324, Mean Platelet Volume 5.0L, Neutrophils (%) (Auto) 74.4, Lymphocytes (%) (Auto) 14.8L, Monocytes (%) (Auto) 7.8, Eosinophils (%) (Auto) 2.1, Basophils (%) (Auto) 0.8, Sodium Level 143, Potassium Level 4.1, Chloride Level 103, Carbon Dioxide Level 36H, Anion Gap 4L, Blood Urea Nitrogen 8, Creatinine 1.1, Estimat Glomerular Filtration Rate , Glucose Level 127H, Calcium Level 9.2, Magnesium Level 1.7L, Total Bilirubin 0.3, Aspartate Amino Transf (AST/SGOT) 24, Alanine Aminotransferase (ALT/SGPT) 38, Alkaline Phosphatase 140H, Troponin I 0.781H, Total Protein 6.9, Albumin 2.5L, Globulin 4.4, Albumin/Globulin Ratio 0.6L Current Medications Medications (Trade) Dose Ordered Sig/Kate Route PRN Reason Start Time Stop Time Status Last Admin Dose Admin Acetaminophen (Tylenol) 1,000 mg Q8H PRN ORAL For Pain 04/20/19 21:48 05/20/19 21:47 04/23/19 15:50 Albuterol Sulfate (Proventil) 2.5 mg Q4HRT HHN 04/20/19 23:00 04/24/19 22:59 04/23/19 19:17 Artificial Tears (Akwa-Tears) 1 drop DAILY BOTH EYES 04/21/19 09:00 05/20/19 08:59 04/23/19 08:42 Atorvastatin Calcium (Lipitor) 10 mg BEDTIME ORAL 04/21/19 21:00 05/19/19 20:59 04/22/19 20:17 Beclomethasone Dipropionate (Qvar 40 Inhaler) 2 puff TWICE A DAY INH 04/21/19 09:00 05/19/19 20:59 04/23/19 19:17 Dextrose (Dextrose 50%) 25 ml Q30M PRN IV Hypoglycemia 04/20/19 22:15 05/19/19 15:44 Dextrose (Dextrose 50%) 50 ml Q30M PRN IV Hypoglycemia 04/20/19 22:15 05/19/19 15:44 Docusate Sodium (Colace) 100 mg TWICE A DAY ORAL 04/21/19 09:00 05/20/19 08:59 04/23/19 08:43 Escitalopram Oxalate (Lexapro) 5 mg DAILY ORAL 04/21/19 09:00 05/20/19 08:59 04/23/19 08:44 Furosemide (Lasix) 40 mg DAILY ORAL 04/21/19 09:00 05/20/19 08:59 04/22/19 09:29 Iron Sucrose 100 mg/Sodium Chloride 60 ml @ 240 mls/hr BEDTIME IV 04/21/19 21:00 04/25/19 21:14 04/22/19 20:19 Magnesium Hydroxide (Mom) 30 ml Q8H PRN ORAL Constipation 04/20/19 21:49 05/20/19 21:48 Meropenem 1 gm/ Sodium Chloride 55 ml @ 110 mls/hr Q12HR IVPB 04/22/19 21:00 04/27/19 20:59 04/23/19 08:42 Metoprolol Tartrate (Lopressor) 25 mg Q12HR ORAL 04/21/19 09:00 05/19/19 20:59 04/21/19 21:28 Pantoprazole (Protonix) 40 mg DAILY ORAL 04/21/19 09:00 05/20/19 08:59 04/23/19 08:42 Polyethylene Glycol (Miralax) 17 gm Q8H PRN ORAL Constipation 04/20/19 21:49 05/20/19 21:48 Potassium Chloride (K-Dur) 40 meq TWICE A DAY ORAL 04/21/19 09:00 05/21/19 08:59 04/23/19 17:24 Sennosides (Senokot) 8.6 mg DAILY ORAL 04/21/19 09:00 05/20/19 08:59 04/23/19 08:42 Keren Bernal DO Apr 23, 2019 21:03
[2019-04-23] MEDS: Iron Sucrose 100 MG in NS 55 ML IV SCH (21:24)
[2019-04-24] VITALS: BP 114/61
[2019-04-24] MEDS: Acetaminophen 500mg (ES) tab ORAL PRN ×2 (01:45→12:09)
[2019-04-24] MEDS: Albuterol ud Inhalation HHN SCH ×5 (02:46→19:00)
[2019-04-24 04:00] VITALS: BP 114/60
--- NOTE | 2019-04-24 07:40 | NUR ---
NURSE NOTES: Received report from STEVEN Bennett. The patient is having a breakfast on the chair without acute distress or shortness of breath. The patient's bed in the lowest position, call light in reach, and fall and strict aspiration precaution reinforced. The patient is on 2L NC as ordered. IV site intact and patent. Will continue plan of care.
--- NOTE | 2019-04-24 07:40 | NUR ---
NURSE NOTES: Dr. Bowen was notified regarding positive OB stool in the past. Dr. Bowen was notified that no GI consult in the case even with positive OB stool result. The patient is stable without acute distress or shortness of breath. Will continue plan of care.
--- NOTE | 2019-04-24 07:43 | NUR ---
HAND-OFF: Report given to STEVEN David. Pt is in stable condition. Plan of care endorsed.
[2019-04-24 07:49] LABS: HEMATOCRIT 28.1 % (37.0-47.0); HEMOGLOBIN 8.3 G/DL (12.0-16.0); MEAN CORPUSCULAR VOLUME 104 FL (80-99); PLATELET COUNT 355 K/UL (150-450); RED BLOOD COUNT 2.69 M/UL (4.20-5.40); RED CELL DISTRIBUTION WIDTH 17.4 % (11.6-14.8); WHITE BLOOD COUNT 18.1 K/UL (4.8-10.8)
[2019-04-24 08:00] VITALS: BP 133/63
[2019-04-24 08:07] LABS: ANION GAP 3 mmol/L (5-15); BLOOD UREA NITROGEN 6 mg/dL (7-18); CARBON DIOXIDE 35 MMOL/L (21-32); CHLORIDE 103 MMOL/L (98-107); CREATININE 0.8 MG/DL (0.55-1.30); POTASSIUM 4.5 MMOL/L (3.5-5.1); SODIUM 141 MMOL/L (136-145)
--- NOTE | 2019-04-24 08:42 | NUR ---
RADIOLOGY DEPT., CHEST X-RAY DONE.-P.DYE
[2019-04-24] MEDS: Sennosides 8.6mg tab ORAL SCH (09:00)
[2019-04-24] MEDS: Docusate 100mg cap ORAL SCH ×2 (09:00→17:15)
--- NOTE | 2019-04-24 09:00 | NUR ---
NURSE NOTES: Notified Dr. Schroeder (ID physician) regarding up-trending of WBC with loose stool and diarrhea. No new order yet. Will continue plan of care.
[2019-04-24] MEDS: Qvar 40mcg Inhaler 6.8 gm INH SCH ×2 (09:14→18:00)
[2019-04-24] MEDS: Meropenem 1 GM in NS 55 ML IVPB SCH ×2 (09:20→21:03)
[2019-04-24] MEDS: Furosemide 40mg tab ORAL SCH (09:21)
[2019-04-24] MEDS: Metoprolol 25mg tab ORAL SCH ×2 (09:22→21:07)
--- NOTE | 2019-04-24 09:30 | NUR ---
NURSE NOTES: Due to loose stool and diarrhea, held stool softners. Notified to Dr. Anaya regarding it. Will continue plan of care.
--- NOTE | 2019-04-24 09:45 | NUR ---
NURSE NOTES: Notified Dr. Moreno regarding Troponin figure, which is down-trending. No new order. Will continue plan of care.
--- NOTE | 2019-04-24 10:00 | NUR ---
NURSE NOTES: Per respiratory therapist, the patient has been refusing breathing treatment. The risk and benefits of the treatment explained to the patient and understood. The patient is stable without acute distress or shortness of breath. Will continue plan of care.
--- NOTE | 2019-04-24 10:07 | NUR ---
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 COLI- UTI T 99.2, BP. 133/63, HR 87, RR- 19, O2 SAT 96%- O2-2L WBC. 18.1, TROP. 0.565 CXR- PNEUMONITIS OR BRONCHITIS, UA- E. COLI IS- STARTED ON MEROPENUM IV ABX Q12 BECLOMETHASONE INH BID TELE STATUS
--- NOTE | 2019-04-24 11:11 | NUR ---
RD ASSESSMENT & RECOMMENDATIONS SEE CARE ACTIVITY FOR COMPLETE ASSESSMENT DAILY ESTIMATED NEEDS: Needs based on pulmonary, cardiac/ 60.5kg 25-30 kcals/kg [id number] total kcals 1-1.5 g protein/kg 61-91 g total protein Fluid per MD, on lasix NUTRITION DIAGNOSIS: Decreased sodium needs r/t cardiac history as evidenced by pt w/ h/o CVA, HTN, w/ elev BNP (1532), on lasix. PO DIET RECOMMENDATIONS: LOW NA/ texture per YARD PIPE GRADER ADDITIONAL RECOMMENDATIONS: * Calibrated bedscale wt * Rec YARD PIPE GRADER eval for h/o CVA * Monitor lytes closely while on lasix, replete as needed . . . .
--- NOTE | 2019-04-24 11:46 | Diagnostic Imaging Report ---
Indication: Cough Technique: One view of the chest Comparison: 04/23/2019 Findings: Better inspiration currently with decreased crowding of bronchovascular markings Right perihilar atelectasis or scar persists, unchanged. The lungs and pleural spaces are otherwise clear. The heart size is upper limits of normal. There are degenerative changes of the right shoulder incidentally noted Impression: No acute process
[2019-04-24 12:00] VITALS: BP 130/73
--- NOTE | 2019-04-24 12:42 | NUR ---
NURSE NOTES: The patient is stable without acute distress or shortness of breath. Will continue plan of care.
--- NOTE | 2019-04-24 13:31 | NUR ---
NURSE NOTES: Dr. Anaya ordered as follows for elevated WBC: UA, Urine culture, blood culture, c. diff stool now, and CBC and CMP tomorrow am. Will carry out the order now.
[2019-04-24 16:00] VITALS: BP 126/53
--- NOTE | 2019-04-24 16:44 | Pulmonology Progress Note ---
Assessment/Plan Assessment/Plan 1. COPD with respiratory failure off BiPAP. 2. Sick sinus syndrome. 3. Septic shock due to UTI 4. CHF 5. Hypertension. 6. Hyperlipidemia. 7. CKD. 8. GERD. 9. History of prior GI bleed. feels weak, pain all over continued improvement alert, responsive cont rx mobilize dc planning Subjective Constitutional: Reports: no symptoms Allergies: Coded Allergies: No Known Allergies (Unverified , 06/05/14) Objective Last 24 Hour Vital Signs Date Time Temp Pulse Resp B/P (MAP) Pulse Ox O2 Delivery O2 Flow Rate FiO2 04/24/19 12:00 99.2 76 18 130/73 (92) 96 76 04/24/19 12:00 74 04/24/19 09:22 87 133/63 04/24/19 09:00 Nasal Cannula 2.0 04/24/19 08:00 88 04/24/19 08:00 99.2 87 18 133/63 (86) 96 04/24/19 07:19 98 Nasal Cannula 2.0 28 04/24/19 04:00 80 04/24/19 04:00 98.1 82 19 114/60 (78) 98 04/24/19 00:00 99.0 83 18 114/61 (78) 97 04/24/19 00:00 83 04/23/19 22:35 84 18 99 Nasal Cannula 2.0 28 04/23/19 22:25 81 18 98 Nasal Cannula 2.0 28 04/23/19 21:00 Nasal Cannula 2.0 04/23/19 21:00 75 103/61 04/23/19 20:00 98.4 75 19 103/61 (75) 97 04/23/19 20:00 90 04/23/19 19:33 90 18 100 Nasal Cannula 2.0 28 04/23/19 19:19 97 Nasal Cannula 2.0 28 04/23/19 19:19 89 18 97 Nasal Cannula 2.0 28 Intake and Output 04/23/19 04/24/19 19:00 07:00 Intake Total 415 ml 200 ml Balance 415 ml 200 ml Intake Oral 360 ml 200 ml IV Total 55 ml # Voids 3 2 # Bowel Movements 1 4 General Appearance: no acute distress Respiratory/Chest: lungs clear Cardiovascular: normal rate Laboratory Tests 04/24/19 06:01: White Blood Count 18.1#H, Red Blood Count 2.69L, Hemoglobin 8.3L, Hematocrit 28.1L, Mean Corpuscular Volume 104H, Mean Corpuscular Hemoglobin 31.0, Mean Corpuscular Hemoglobin Concent 29.7L, Red Cell Distribution Width 17.4H, Platelet Count 355, Mean Platelet Volume 4.8L, Neutrophils (%) (Auto) , Lymphocytes (%) (Auto) , Monocytes (%) (Auto) , Eosinophils (%) (Auto) , Basophils (%) (Auto) , Differential Total Cells Counted 100, Neutrophils % ( Manual) 73, Lymphocytes % (Manual) 13L, Monocytes % (Manual) 11H, Eosinophils % (Manual) 3, Basophils % (Manual) 0, Band Neutrophils 0, Platelet Estimate Adequate, Platelet Morphology Normal, Anisocytosis 1+, Sodium Level 141, Potassium Level 4.5, Chloride Level 103, Carbon Dioxide Level 35H, Anion Gap 3L , Blood Urea Nitrogen 6L, Creatinine 0.8, Estimat Glomerular Filtration Rate , Glucose Level 87, Calcium Level 9.0, Troponin I 0.565H, Pro-B-Type Natriuretic Peptide 1532H Current Medications Medications (Trade) Dose Ordered Sig/Kate Route PRN Reason Start Time Stop Time Status Last Admin Dose Admin Acetaminophen (Tylenol) 1,000 mg Q8H PRN ORAL For Pain 04/20/19 21:48 05/20/19 21:47 04/24/19 12:09 Albuterol Sulfate (Proventil) 2.5 mg Q4HRT HHN 04/20/19 23:00 04/24/19 22:59 04/23/19 22:25 Artificial Tears (Akwa-Tears) 1 drop DAILY BOTH EYES 04/21/19 09:00 05/20/19 08:59 04/24/19 09:20 Atorvastatin Calcium (Lipitor) 10 mg BEDTIME ORAL 04/21/19 21:00 05/19/19 20:59 04/23/19 21:24 Beclomethasone Dipropionate (Qvar 40 Inhaler) 2 puff TWICE A DAY INH 04/21/19 09:00 05/19/19 20:59 04/24/19 09:14 Dextrose (Dextrose 50%) 25 ml Q30M PRN IV Hypoglycemia 04/20/19 22:15 05/19/19 15:44 Dextrose (Dextrose 50%) 50 ml Q30M PRN IV Hypoglycemia 04/20/19 22:15 05/19/19 15:44 Docusate Sodium (Colace) 100 mg TWICE A DAY ORAL 04/21/19 09:00 05/20/19 08:59 04/23/19 08:43 Escitalopram Oxalate (Lexapro) 5 mg DAILY ORAL 04/21/19 09:00 05/20/19 08:59 04/24/19 09:21 Furosemide (Lasix) 40 mg DAILY ORAL 04/21/19 09:00 05/20/19 08:59 04/24/19 09:21 Iron Sucrose 100 mg/Sodium Chloride 60 ml @ 240 mls/hr BEDTIME IV 04/21/19 21:00 04/25/19 21:14 04/23/19 21:24 Magnesium Hydroxide (Mom) 30 ml Q8H PRN ORAL Constipation 04/20/19 21:49 05/20/19 21:48 Meropenem 1 gm/ Sodium Chloride 55 ml @ 110 mls/hr Q12HR IVPB 04/22/19 21:00 04/27/19 20:59 04/24/19 09:20 Metoprolol Tartrate (Lopressor) 25 mg Q12HR ORAL 04/21/19 09:00 05/19/19 20:59 04/24/19 09:22 Pantoprazole (Protonix) 40 mg DAILY ORAL 04/21/19 09:00 05/20/19 08:59 04/24/19 09:22 Polyethylene Glycol (Miralax) 17 gm Q8H PRN ORAL Constipation 04/20/19 21:49 05/20/19 21:48 Potassium Chloride (K-Dur) 40 meq TWICE A DAY ORAL 04/21/19 09:00 05/21/19 08:59 04/24/19 09:21 Sennosides (Senokot) 8.6 mg DAILY ORAL 04/21/19 09:00 05/20/19 08:59 04/23/19 08:42 Gio Feng MD Apr 24, 2019 16:43
--- NOTE | 2019-04-24 18:23 | NUR ---
NURSE NOTES: The patient is stable without acute distress or shortness of breath. Will continue plan of care.
--- NOTE | 2019-04-24 18:58 | General Progress Note ---
Assessment/Plan Problem List: (1) Sepsis ICD Codes: A41.9 - Sepsis SNOMED: 03954102 (2) COPD (chronic obstructive pulmonary disease) ICD Codes: J44.9 - Chronic obstructive pulmonary disease, unspecified SNOMED: 57183048 (3) Episode of generalized weakness ICD Codes: R53.1 - Weakness SNOMED: 86945015 (4) Paroxysmal A-fib ICD Codes: I48.0 - Paroxysmal atrial fibrillation SNOMED: 592749605 (5) Hypotension ICD Codes: I95.9 - Hypotension, unspecified SNOMED: 44337976 (6) CHF (congestive heart failure) ICD Codes: I50.9 - Heart failure, unspecified SNOMED: 11004375 (7) Myocardial infarct ICD Codes: I21.3 - ST elevation (STEMI) myocardial infarction of unspecified site SNOMED: 59527897 (8) Cerebral vascular accident ICD Codes: I63.9 - Cerebral infarction, unspecified SNOMED: 090005589 (9) Urinary tract infection ICD Codes: N39.0 - Urinary tract infection, site not specified SNOMED: 64160444 (10) Respiratory acidosis ICD Codes: E87.2 - Acidosis SNOMED: 62046476 (11) Upper GI bleed ICD Codes: K92.2 - Gastrointestinal hemorrhage, unspecified SNOMED: 49156766 Assessment/Plan: improved, start diet, dc iv fluids, continueantibiotics, +esbl, ID to see, meropenam orders updated,,mobilize, heme+stool stop eliquis Subjective Constitutional: Reports: weakness Cardiovascular: Reports: no symptoms Respiratory: Reports: SOB with excertion Gastrointestinal/Abdominal: Reports: no symptoms Genitourinary: Reports: no symptoms, incontinence Endocrine: Reports: no symptoms Hematologic/Lymphatic: Reports: anemia Allergies: Coded Allergies: No Known Allergies (Unverified , 06/05/14) Objective Last 24 Hour Vital Signs Date Time Temp Pulse Resp B/P (MAP) Pulse Ox O2 Delivery O2 Flow Rate FiO2 04/24/19 16:00 67 04/24/19 16:00 98.6 70 18 126/53 (77) 100 70 04/24/19 12:00 99.2 76 18 130/73 (92) 96 76 04/24/19 12:00 74 04/24/19 09:22 87 133/63 04/24/19 09:00 Nasal Cannula 2.0 10/7/19 08:00 88 04/24/19 08:00 99.2 87 18 133/63 (86) 96 04/24/19 07:19 98 Nasal Cannula 2.0 28 04/24/19 04:00 80 04/24/19 04:00 98.1 82 19 114/60 (78) 98 04/24/19 00:00 99.0 83 18 114/61 (78) 97 04/24/19 00:00 83 04/23/19 22:35 84 18 99 Nasal Cannula 2.0 28 04/23/19 22:25 81 18 98 Nasal Cannula 2.0 28 04/23/19 21:00 Nasal Cannula 2.0 04/23/19 21:00 75 103/61 04/23/19 20:00 98.4 75 19 103/61 (75) 97 04/23/19 20:00 90 04/23/19 19:33 90 18 100 Nasal Cannula 2.0 28 04/23/19 19:19 97 Nasal Cannula 2.0 28 04/23/19 19:19 89 18 97 Nasal Cannula 2.0 28 Intake and Output 04/23/19 04/24/19 19:00 07:00 Intake Total 415 ml 200 ml Balance 415 ml 200 ml Intake Oral 360 ml 200 ml IV Total 55 ml # Voids 3 2 # Bowel Movements 1 4 Laboratory Tests 04/24/19 06:01: White Blood Count 18.1#H, Red Blood Count 2.69L, Hemoglobin 8.3L, Hematocrit 28.1L, Mean Corpuscular Volume 104H, Mean Corpuscular Hemoglobin 31.0, Mean Corpuscular Hemoglobin Concent 29.7L, Red Cell Distribution Width 17.4H, Platelet Count 355, Mean Platelet Volume 4.8L, Neutrophils (%) (Auto) , Lymphocytes (%) (Auto) , Monocytes (%) (Auto) , Eosinophils (%) (Auto) , Basophils (%) (Auto) , Differential Total Cells Counted 100, Neutrophils % ( Manual) 73, Lymphocytes % (Manual) 13L, Monocytes % (Manual) 11H, Eosinophils % (Manual) 3, Basophils % (Manual) 0, Band Neutrophils 0, Platelet Estimate Adequate, Platelet Morphology Normal, Anisocytosis 1+, Sodium Level 141, Potassium Level 4.5, Chloride Level 103, Carbon Dioxide Level 35H, Anion Gap 3L , Blood Urea Nitrogen 6L, Creatinine 0.8, Estimat Glomerular Filtration Rate , Glucose Level 87, Calcium Level 9.0, Troponin I 0.565H, Pro-B-Type Natriuretic Peptide 1532H Height (Feet): 5 Height (Inches): 5.00 Weight (Pounds): 157 General Appearance: no apparent distress, alert EENT: normal ENT inspection Neck: normal alignment, supple Cardiovascular: normal rate, regular rhythm Respiratory/Chest: lungs clear Abdomen: non tender Extremities: other - no edema Neurologic: motor weakness Pastor Bowen MD Apr 24, 2019 18:58
--- NOTE | 2019-04-24 19:44 | NUR ---
HAND-OFF: Report given to STEVEN Bennett. The patient is resting on the bed without acute distress or shortness of breath. The patient's bed in the lowest position, call light in reach, and fall and aspiration precaution reinforced. IV site intact and patent. Endorsed plan of care.
--- NOTE | 2019-04-24 19:45 | NUR ---
NURSE NOTES: Received pt and report from STEVEN David. Observed pt resting in bed with both eyes open. Pt is A/Ox3. nurse monitoring is in placed, IV site intact, asymptomatic, and patent. Bed is in the lowest position and locked. Call light within reach. Pt refused breathing treatment with RT at change of shift. Explained the risks of refusing and the benefits of receiving breathing treatments with pt. Pt verbalized understanding. No SOB or signs/symptoms of acute distress noted at this time. Will continue plan of care.
[2019-04-24 20:00] VITALS: BP 110/56
[2019-04-24] MEDS: Iron Sucrose 100 MG in NS 55 ML IV SCH (20:40)
[2019-04-24] MEDS ORDERED: NS 275ml ONE (22:49)
[2019-04-24] MEDS ORDERED: Tubing IV Secondary IV ONE (22:49)
[2019-04-25] VITALS: BP 107/52
[2019-04-25] MEDS: Acetaminophen 500mg (ES) tab ORAL PRN ×2 (00:27→17:46)
--- NOTE | 2019-04-25 01:59 | NUR ---
NURSE NOTES: Attempted to collect urinalysis, but urine was mixed with BM.
--- NOTE | 2019-04-25 02:05 | NUR ---
NURSE NOTES: Contacted Dr. Anaya to ask for possible order for a straight cath to collect STAT urinalysis. Pt is incontinent. Attempted to collect urine, but urine was contaminated by pt's feces. Addendum: 04/25/19 at 0236 by Cecelia Zheng Mai, RN Awaiting call back from Dr. Anaya.
[2019-04-25 04:00] VITALS: BP 106/56
--- NOTE | 2019-04-25 05:10 | NUR ---
NURSE NOTES: Received orders from Dr. Anaya for straight cath. Will note and carry out.
--- NOTE | 2019-04-25 05:30 | Progress Note ---
DATE: 04/19/2019 CARDIOLOGY PROGRESS NOTE SUBJECTIVE: The patient still has pain and weakness. No shortness of breath. Less congestion. Monitored, rhythm sinus. Rare atrial ectopics. No recurring atrial fibrillation for the past several days. OBJECTIVE: VITAL SIGNS: Blood pressure 130/73, pulse 76, respirations 18. LUNGS: With few rhonchi. CARDIAC: Regular rhythm and rate. Normal S1, S2 with a 1/6 systolic apical murmur. ABDOMEN: Soft. EXTREMITIES: No edema. LABORATORY AND DIAGNOSTIC DATA: White count 18, hemoglobin 8.3. Potassium is 4.5. Troponin down to 0.56. Pro-natriuretic peptide is 1500. Chest x-ray reveals no acute process. IMPRESSION: 1. Euvolemic. 2. Acute myocardial infarction. 3. ESBL sepsis and shock, recovered. 4. Acute on chronic diastolic congestive heart failure. 5. Recovered acute respiratory failure with acute on chronic respiratory acidosis. 6. Paroxysmal atrial fibrillation on chronic anticoagulation. 7. Hypomagnesemia, status post replacement therapy. 8. History of CVA with baseline hemiparesis. 9. Hypotension, resolved. 10. Leukocytosis. PLAN: 1. Maintenance dose diuretic to be resumed. 2. Continue current beta-román dosing. 3. Full anticoagulation for cardioembolic prophylaxis. 4. Monitor and replace electrolytes. 5. Respiratory hygiene. 6. Recheck urine studies and repeat white blood count. Jan Moreno M.D. DR: MOMO JOB#: [id number] CC:
[2019-04-25 06:35] LABS: HEMATOCRIT 29.3 % (37.0-47.0); HEMOGLOBIN 8.7 G/DL (12.0-16.0); MEAN CORPUSCULAR VOLUME 106 FL (80-99); PLATELET COUNT 418 K/UL (150-450); RED BLOOD COUNT 2.77 M/UL (4.20-5.40); RED CELL DISTRIBUTION WIDTH 17.7 % (11.6-14.8); WHITE BLOOD COUNT 18.5 K/UL (4.8-10.8)
[2019-04-25 07:09] LABS: ALANINE AMINOTRANSFERASE 27 U/L (12-78); ALBUMIN 2.6 G/DL (3.4-5.0); ALBUMIN/GLOBULIN RATIO 0.6 (1.0-2.7); ALKALINE PHOSPHATASE 139 U/L (46-116); ANION GAP 1 mmol/L (5-15); ASPARTATE AMINO TRANSFERASE 23 U/L (15-37); BILIRUBIN,TOTAL 0.3 MG/DL (0.2-1.0); BLOOD UREA NITROGEN 4 mg/dL (7-18); CALCIUM 9.3 MG/DL (8.5-10.1); CARBON DIOXIDE 37 MMOL/L (21-32); CHLORIDE 103 MMOL/L (98-107); CREATININE 0.7 MG/DL (0.55-1.30); POTASSIUM 4.7 MMOL/L (3.5-5.1); SODIUM 141 MMOL/L (136-145)
--- NOTE | 2019-04-25 07:15 | NUR ---
NURSE NOTES: Collected urine by straight cath. Urine set to lab.
[2019-04-25 07:26] LABS: APPEARANCE,URINE CLEAR; BILIRUBIN, URINE NEGATIVE (NEGATIVE); COLOR,URINE PALE YELLOW; GLUCOSE, URINE (UA) NEGATIVE (NEGATIVE); KETONES,URINE NEGATIVE (NEGATIVE); LEUKOCYTE ESTERASE ,URINE 1+ (NEGATIVE); NITRITE,URINE NEGATIVE (NEGATIVE); PH,URINE 7 (4.5-8.0); PROTEIN,URINE NEGATIVE (NEGATIVE); UROBILINOGEN,URINE NORMAL MG/DL (0.0-1.0)
[2019-04-25] MEDS: Qvar 40mcg Inhaler 6.8 gm INH SCH ×2 (07:41→18:00)
--- NOTE | 2019-04-25 07:42 | NUR ---
HAND-OFF: Report given to []. Addendum: 04/25/19 at 0743 by Cecelia Zheng Mai, RN Report given to STEVEN Miller. Pt is in stable condition. Plan of care endorsed.
[2019-04-25 08:00] VITALS: BP_SYST 107; BP_SYST 113; BP_DIAS 52; BP_DIAS 58
--- NOTE | 2019-04-25 08:14 | NUR ---
RADIOLOGY DEPT., CHEST X-RAY DONE.-P.DYE
--- NOTE | 2019-04-25 08:40 | NUR ---
NURSE NOTES: Pt in bed having breakfast is awake and alert. 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 bed locked and in lowest position. Call light within reach. Will continue to monitor pt.
--- NOTE | 2019-04-25 08:40 | NUR ---
NURSE NOTES: per Dr. Bowen, find out from C/M if retirement is able to provide IV antibiotic admin. if [facility] is able to give IV meds pt may be DC today. If not pt will be staying until antibiotic therapy ends. Unable to leave voice mail at Ext [phone] ph keeps ringing will try to call again later.
[2019-04-25] MEDS: Docusate 100mg cap ORAL SCH ×2 (09:00→17:46)
[2019-04-25] MEDS: Sennosides 8.6mg tab ORAL SCH (09:00)
--- NOTE | 2019-04-25 09:10 | General Progress Note ---
Assessment/Plan Problem List: (1) Sepsis ICD Codes: A41.9 - Sepsis SNOMED: 98065900 (2) COPD (chronic obstructive pulmonary disease) ICD Codes: J44.9 - Chronic obstructive pulmonary disease, unspecified SNOMED: 29117682 (3) Episode of generalized weakness ICD Codes: R53.1 - Weakness SNOMED: 44300338 (4) Paroxysmal A-fib ICD Codes: I48.0 - Paroxysmal atrial fibrillation SNOMED: 018173238 (5) Hypotension ICD Codes: I95.9 - Hypotension, unspecified SNOMED: 31716096 (6) CHF (congestive heart failure) ICD Codes: I50.9 - Heart failure, unspecified SNOMED: 96255020 (7) Myocardial infarct ICD Codes: I21.3 - ST elevation (STEMI) myocardial infarction of unspecified site SNOMED: 29283029 (8) Cerebral vascular accident ICD Codes: I63.9 - Cerebral infarction, unspecified SNOMED: 283041807 (9) Urinary tract infection ICD Codes: N39.0 - Urinary tract infection, site not specified SNOMED: 04903099 (10) Respiratory acidosis ICD Codes: E87.2 - Acidosis SNOMED: 23288495 (11) Upper GI bleed ICD Codes: K92.2 - Gastrointestinal hemorrhage, unspecified SNOMED: 96567168 Assessment/Plan: improved, start diet, dc iv fluids, continue antibiotics, +esbl, ID to see, meropenam orders updated,,mobilize, heme+stool stop eliquis, recent egd gastritis and colon only small polyps, wbc still high check renal US Subjective Constitutional: Reports: weakness HEENT: Reports: no symptoms Cardiovascular: Reports: no symptoms Respiratory: Reports: SOB with excertion Gastrointestinal/Abdominal: Reports: no symptoms Genitourinary: Reports: incontinence Neurologic/Psychiatric: Reports: pre-existing deficit Endocrine: Reports: no symptoms Hematologic/Lymphatic: Reports: anemia Allergies: Coded Allergies: No Known Allergies (Unverified , 06/05/14) Objective Last 24 Hour Vital Signs Date Time Temp Pulse Resp B/P (MAP) Pulse Ox O2 Delivery O2 Flow Rate FiO2 04/25/19 07:41 97 Nasal Cannula 2.0 28 04/25/19 04:00 73 04/25/19 04:00 97.6 69 20 106/56 (73) 100 04/25/19 00:00 97.9 68 18 107/52 (70) 99 04/25/19 00:00 66 04/24/19 21:07 72 109/56 04/24/19 21:00 Nasal Cannula 2.0 04/24/19 20:00 67 04/24/19 20:00 98.7 75 19 110/56 (74) 100 04/24/19 19:13 98 18 98 Nasal Cannula 2.0 28 04/24/19 19:12 98 Nasal Cannula 2.0 28 04/24/19 16:00 67 04/24/19 16:00 98.6 70 18 126/53 (77) 100 70 04/24/19 12:00 99.2 76 18 130/73 (92) 96 76 04/24/19 12:00 74 04/24/19 09:22 87 133/63 Intake and Output 04/24/19 04/25/19 19:00 07:00 Intake Total 790 ml Output Total 500 ml Balance 290 ml Intake Oral 790 ml Output Urine Total 500 ml # Voids 6 2 # Bowel Movements 5 1 Laboratory Tests 04/25/19 05:26: White Blood Count 18.5H, Red Blood Count 2.77L, Hemoglobin 8.7L, Hematocrit 29.3L, Mean Corpuscular Volume 106H, Mean Corpuscular Hemoglobin 31.5H, Mean Corpuscular Hemoglobin Concent 29.8L, Red Cell Distribution Width 17.7H, Platelet Count 418, Mean Platelet Volume 4.8L, Neutrophils (%) (Auto) , Lymphocytes (%) (Auto) , Monocytes (%) (Auto) , Eosinophils (%) (Auto) , Basophils (%) (Auto) , Neutrophils % (Manual) [Pending], Lymphocytes % (Manual) [Pending], Platelet Estimate [Pending], Platelet Morphology [Pending], Sodium Level 141, Potassium Level 4.7, Chloride Level 103, Carbon Dioxide Level 37H, Anion Gap 1L, Blood Urea Nitrogen 4L, Creatinine 0.7, Estimat Glomerular Filtration Rate , Glucose Level 86, Calcium Level 9.3, Magnesium Level 2.1, Total Bilirubin 0.3, Aspartate Amino Transf (AST/SGOT) 23, Alanine Aminotransferase (ALT/SGPT) 27, Alkaline Phosphatase 139H, Total Protein 6.9, Albumin 2.6L, Globulin 4.3, Albumin/Globulin Ratio 0.6L 04/25/19 07:00: Urine Color Pale yellow, Urine Appearance Clear, Urine pH 7, Urine Specific [place] 1.010, Urine Protein Negative, Urine Glucose (UA) Negative, Urine Ketones Negative, Urine Blood 2+H, Urine Nitrite Negative, Urine Bilirubin Negative, Urine Urobilinogen Normal, Urine Leukocyte Esterase 1+H, Urine RBC 2- 4H, Urine WBC 2-4, Urine Squamous Epithelial Cells Few, Urine Calcium Oxalate Crystals , Urine Bacteria Few Height (Feet): 5 Height (Inches): 5.00 Weight (Pounds): 151 General Appearance: no apparent distress, alert EENT: normal ENT inspection Neck: normal alignment Cardiovascular: normal rate, regular rhythm Respiratory/Chest: lungs clear, decreased breath sounds Edema: no edema noted Arm (L), no edema noted Arm (R), no edema noted Leg (L), no edema noted Leg (R), no edema noted Pedal (L), no edema noted Pedal (R), no edema noted Generalized Neurologic: motor weakness Pastor Bowen MD Apr 25, 2019 09:10
[2019-04-25] MEDS: Furosemide 40mg tab ORAL SCH (10:08)
[2019-04-25] MEDS: Metoprolol 25mg tab ORAL SCH ×2 (10:09→21:20)
--- NOTE | 2019-04-25 10:17 | NUR ---
NURSE NOTES: meds given late scanner not working antibiotic bag is liking. Ordered new bag from pharmacy.
--- NOTE | 2019-04-25 10:29 | NUR ---
*-* DISCHARGE PLANNING *-* PATIENT HAS BEEN REFERRED BACK TO: [facility] P: [phone] F: [phone]
--- NOTE | 2019-04-25 10:37 | NUR ---
NURSE NOTES: dr cross called and wants to make sure that SNF can Ertapenem 1gm IV q24h for 8 days, notified case sealer.
--- NOTE | 2019-04-25 11:05 | NUR ---
NURSE NOTES: Priyanka Edilberto Hardin called to ask if pt is on isolation, that was confirmed pt is on ESVL in the urine isolation. They are notifying venetian blind worker and sterile processing manager. Facility can continue to administer antibiotic IV but have no isolation room available at this time.
[2019-04-25] MEDS: Meropenem 1 GM in NS 55 ML IVPB SCH ×2 (11:40→21:19)
[2019-04-25 12:00] VITALS: BP 108/62
--- NOTE | 2019-04-25 14:04 | Pulmonology Progress Note ---
Assessment/Plan Assessment/Plan 1. COPD with respiratory failure, resolved 2. Sick sinus syndrome. 3. Septic shock due to UTI, resolved 4. CHF 5. Hypertension. 6. Hyperlipidemia. 7. CKD. 8. GERD. 9. History of prior GI bleed. feels better continued improvement alert, responsive cont rx mobilize dc planning disc w Dr Bowen Subjective Constitutional: Reports: fatigue; Denies: fever Respiratory: Denies: shortness of breath Cardiovascular: Denies: chest pain Allergies: Coded Allergies: No Known Allergies (Unverified , 06/05/14) Objective Last 24 Hour Vital Signs Date Time Temp Pulse Resp B/P (MAP) Pulse Ox O2 Delivery O2 Flow Rate FiO2 04/25/19 12:00 59 04/25/19 10:09 70 113/58 04/25/19 08:00 98.6 70 18 113/58 (76) 99 04/25/19 08:00 97.9 68 18 107/52 (70) 99 04/25/19 08:00 71 04/25/19 07:41 97 Nasal Cannula 2.0 28 04/25/19 04:00 73 04/25/19 04:00 97.6 69 20 106/56 (73) 100 04/25/19 00:00 97.9 68 18 107/52 (70) 99 04/25/19 00:00 66 04/24/19 21:07 72 109/56 04/24/19 21:00 Nasal Cannula 2.0 04/24/19 20:00 67 04/24/19 20:00 98.7 75 19 110/56 (74) 100 04/24/19 19:13 98 18 98 Nasal Cannula 2.0 28 04/24/19 19:12 98 Nasal Cannula 2.0 28 04/24/19 16:00 67 04/24/19 16:00 98.6 70 18 126/53 (77) 100 70 Intake and Output 04/24/19 04/25/19 19:00 07:00 Intake Total 790 ml Output Total 500 ml Balance 290 ml Intake Oral 790 ml Output Urine Total 500 ml # Voids 6 2 # Bowel Movements 5 1 General Appearance: no acute distress HEENT: atraumatic Respiratory/Chest: lungs clear Cardiovascular: normal rate Microbiology Date/Time Source Procedure Growth Status 04/24/19 23:25 Stool Clostridium difficile Toxin Assay - Final Complete Laboratory Tests 04/25/19 05:26: White Blood Count 18.5H, Red Blood Count 2.77L, Hemoglobin 8.7L, Hematocrit 29.3L, Mean Corpuscular Volume 106H, Mean Corpuscular Hemoglobin 31.5H, Mean Corpuscular Hemoglobin Concent 29.8L, Red Cell Distribution Width 17.7H, Platelet Count 418, Mean Platelet Volume 4.8L, Neutrophils (%) (Auto) , Lymphocytes (%) (Auto) , Monocytes (%) (Auto) , Eosinophils (%) (Auto) , Basophils (%) (Auto) , Differential Total Cells Counted 100, Neutrophils % ( Manual) 86H, Lymphocytes % (Manual) 5L, Monocytes % (Manual) 8, Eosinophils % ( Manual) 1, Basophils % (Manual) 0, Band Neutrophils 0, Platelet Estimate Adequate, Platelet Morphology Normal, Anisocytosis 1+, Sodium Level 141, Potassium Level 4.7, Chloride Level 103, Carbon Dioxide Level 37H, Anion Gap 1L , Blood Urea Nitrogen 4L, Creatinine 0.7, Estimat Glomerular Filtration Rate , Glucose Level 86, Calcium Level 9.3, Magnesium Level 2.1, Total Bilirubin 0.3, Aspartate Amino Transf (AST/SGOT) 23, Alanine Aminotransferase (ALT/SGPT) 27, Alkaline Phosphatase 139H, Total Protein 6.9, Albumin 2.6L, Globulin 4.3, Albumin/Globulin Ratio 0.6L 04/25/19 07:00: Urine Color Pale yellow, Urine Appearance Clear, Urine pH 7, Urine Specific [place] 1.010, Urine Protein Negative, Urine Glucose (UA) Negative, Urine Ketones Negative, Urine Blood 2+H, Urine Nitrite Negative, Urine Bilirubin Negative, Urine Urobilinogen Normal, Urine Leukocyte Esterase 1+H, Urine RBC 2- 4H, Urine WBC 2-4, Urine Squamous Epithelial Cells Few, Urine Calcium Oxalate Crystals , Urine Bacteria Few Current Medications Medications (Trade) Dose Ordered Sig/Kate Route PRN Reason Start Time Stop Time Status Last Admin Dose Admin Acetaminophen (Tylenol) 1,000 mg Q8H PRN ORAL For Pain 04/20/19 21:48 05/20/19 21:47 04/25/19 00:27 Artificial Tears (Akwa-Tears) 1 drop DAILY BOTH EYES 04/21/19 09:00 05/20/19 08:59 04/25/19 09:00 Atorvastatin Calcium (Lipitor) 10 mg BEDTIME ORAL 04/21/19 21:00 05/19/19 20:59 04/24/19 20:41 Beclomethasone Dipropionate (Qvar 40 Inhaler) 2 puff TWICE A DAY INH 04/21/19 09:00 05/19/19 20:59 04/24/19 09:14 Dextrose (Dextrose 50%) 25 ml Q30M PRN IV Hypoglycemia 04/20/19 22:15 05/19/19 15:44 Dextrose (Dextrose 50%) 50 ml Q30M PRN IV Hypoglycemia 04/20/19 22:15 05/19/19 15:44 Docusate Sodium (Colace) 100 mg TWICE A DAY ORAL 04/21/19 09:00 05/20/19 08:59 04/23/19 08:43 Escitalopram Oxalate (Lexapro) 5 mg DAILY ORAL 04/21/19 09:00 05/20/19 08:59 04/25/19 10:08 Furosemide (Lasix) 20 mg 1700 ORAL 04/25/19 17:00 05/25/19 16:59 Furosemide (Lasix) 40 mg DAILY ORAL 04/21/19 09:00 05/20/19 08:59 04/25/19 10:08 Iron Sucrose 100 mg/Sodium Chloride 60 ml @ 240 mls/hr BEDTIME IV 04/21/19 21:00 04/25/19 21:14 04/24/19 20:40 Magnesium Hydroxide (Mom) 30 ml Q8H PRN ORAL Constipation 04/20/19 21:49 05/20/19 21:48 Meropenem 1 gm/ Sodium Chloride 55 ml @ 110 mls/hr Q12HR IVPB 04/22/19 21:00 04/27/19 20:59 04/25/19 11:40 Metoprolol Tartrate (Lopressor) 25 mg Q12HR ORAL 04/21/19 09:00 05/19/19 20:59 04/25/19 10:09 Pantoprazole (Protonix) 40 mg DAILY ORAL 04/21/19 09:00 05/20/19 08:59 04/25/19 09:00 Polyethylene Glycol (Miralax) 17 gm Q8H PRN ORAL Constipation 04/20/19 21:49 05/20/19 21:48 Potassium Chloride (K-Dur) 40 meq TWICE A DAY ORAL 04/21/19 09:00 05/21/19 08:59 04/25/19 10:08 Sennosides (Senokot) 8.6 mg DAILY ORAL 04/21/19 09:00 05/20/19 08:59 04/23/19 08:42 Gio Feng MD Apr 25, 2019 14:04
[2019-04-25 16:00] VITALS: BP 111/52
--- NOTE | 2019-04-25 16:17 | Diagnostic Imaging Report ---
Indication: Cough Technique: One view of the chest Comparison: 04/24/2019 Findings: Inspiration is less optimal. Right perihilar atelectasis or scarring is unchanged. Reticular interstitial opacities in the upper lungs are slightly more prominent than on the prior exam. The heart size is upper limits normal. The aorta is tortuous ectatic and calcified. There are degenerative changes of both shoulders Impression: Increasingly prominent bilateral upper lung reticular interstitial opacities. Suspected artifactual due to lower lung volumes resulting in crowding of the bronchovascular markings, but developing infiltrates also possible. Recommend follow-up radiographs Other stable findings as described
--- NOTE | 2019-04-25 16:26 | Diagnostic Imaging Report ---
Indication: Acute renal failure, abnormal renal function tests Technique: Grayscale and duplex images of the kidneys, retroperitoneum, and bladder were obtained. Comparison: none Findings: Right kidney measures 9.4 cm in length. Left kidney measures 9.7 cm in length. Both kidneys demonstrate normal echogenicity. No hydronephrosis. Cysts are seen in both kidneys. Normal inferior vena cava. Bladder is normal. Impression: Negative for hydronephrosis Incidental finding bilateral renal cysts.
--- NOTE | 2019-04-25 16:35 | Infectious Diseases Prog Note ---
Assessment/Plan Assessment/Plan ASSESSMENT AND PLAN: 1. esbl e.coli uti/pyelonephritis, sepsis, ? pna, leukocytosis, fevers, elevated lactic acid - meropenem - day # 4/10 - monitor leukocytosis, blood cultures negative, fevers resolved - monitor labs and chest x-ray - clinically otherwise stable, c.diff. negative 2. Hypertension. 3. Diabetes. 4. Dyslipidemia. 5. Blood sugar and blood pressure treatment for diabetes and hypertension per primary consultants. 6. Congestive heart failure. 7. Valvular heart disease. 8. Anemia. 9. Gastroesophageal reflux disease. 10. Chronic obstructive pulmonary disease. 11. Congestive heart failure. 12. Hypertensive heart disease. 13. Coronary arthrosclerosis. 14. Cerebrovascular accident with right hemiparesis. 15. Chronic kidney disease. 16. No known drug allergies. 17. Social history negative. 18. Family history noncontributory. 19. MAR is noted. 20. Case discussed with RN. 21. Continue treatment per primary consultants. 22. Notes and records were noted. 23. Orders were entered. 24. Past medical history is noted. Subjective Constitutional: Denies: fever Respiratory: Denies: shortness of breath, productive cough Cardiovascular: Denies: chest pain Gastrointestinal/Abdominal: Denies: nausea, vomiting, diarrhea Genitourinary: Reports: other - no hicks Neurologic: Denies: headache Psychiatric: Denies: depression Skin: Denies: rash Hematologic: Denies: bleeding Musculoskeletal: Denies: pain Allergies: Coded Allergies: No Known Allergies (Unverified , 06/05/14) Objective Vital Signs Last 24 Hour Vital Signs Date Time Temp Pulse Resp B/P (MAP) Pulse Ox O2 Delivery O2 Flow Rate FiO2 04/25/19 12:00 59 04/25/19 12:00 99.0 66 18 108/62 (77) 99 04/25/19 10:09 70 113/58 04/25/19 09:00 Nasal Cannula 2.0 04/25/19 08:00 98.6 70 18 113/58 (76) 99 04/25/19 08:00 97.9 68 18 107/52 (70) 99 04/25/19 08:00 71 04/25/19 07:41 97 Nasal Cannula 2.0 28 04/25/19 04:00 73 04/25/19 04:00 97.6 69 20 106/56 (73) 100 04/25/19 00:00 97.9 68 18 107/52 (70) 99 04/25/19 00:00 66 04/24/19 21:07 72 109/56 04/24/19 21:00 Nasal Cannula 2.0 04/24/19 20:00 67 04/24/19 20:00 98.7 75 19 110/56 (74) 100 04/24/19 19:13 98 18 98 Nasal Cannula 2.0 28 04/24/19 19:12 98 Nasal Cannula 2.0 28 Height (Feet): 5 Height (Inches): 5.00 Weight (Pounds): 151 General Appearance: no acute distress HEENT: normocephalic, atraumatic, anicteric, mucous membranes moist Respiratory/Chest: no respiratory distress, crackles/rales, rhonchi - bilaterally Cardiovascular: normal rate, regular rhythm, no gallop/murmur, no JVD Abdomen: normal bowel sounds, soft, non tender, no organomegaly, non distended Genitourinary: other - no hicks, no cva pain Extremities: no cyanosis Skin: no rash Neurologic/Psychiatric: international nurse II-XII grossly normal, alert, oriented x 3, responsive Lymphatic: no neck adenopathy Musculoskeletal: no effusion Objective Chest x-ray - 04/25/19 - Comparison: 04/24/2019 Findings: Inspiration is less optimal. Right perihilar atelectasis or scarring is unchanged. Reticular interstitial opacities in the upper lungs are slightly more prominent than on the prior exam. The heart size is upper limits normal. The aorta is tortuous ectatic and calcified. There are degenerative changes of both shoulders Impression: Increasingly prominent bilateral upper lung reticular interstitial opacities. Suspected artifactual due to lower lung volumes resulting in crowding of the bronchovascular markings, but developing infiltrates also possible. Recommend follow-up radiographs Other stable findings as described Microbiology Date/Time Source Procedure Growth Status 04/19/19 11:10 Blood Blood Culture - Final NO GROWTH AFTER 5 DAYS Complete 04/20/19 14:00 Sputum Gram Stain - Final Complete 04/20/19 14:00 Sputum Sputum Culture - Final NORMAL UPPER RESPIRATORY ALEXANDREA AT 48 ... Complete 04/24/19 23:25 Stool Clostridium difficile Toxin Assay - Final Complete 04/19/19 11:30 Urine,Clean Catch Urine Culture - Final Escherichia Coli - Esbl Complete 04/19/19 11:30 Rectum VRE Culture - Final NO VANCOMYCIN RESISTANT ENTEROCOCCUS ... Complete Microbiology Date/Time Source Procedure Growth Status 04/24/19 23:25 Stool Clostridium difficile Toxin Assay - Final Complete Laboratory Tests Test 04/25/19 05:26 04/25/19 07:00 White Blood Count 18.5 K/UL (4.8-10.8) H Red Blood Count 2.77 M/UL (4.20-5.40) L Hemoglobin 8.7 G/DL (12.0-16.0) L Hematocrit 29.3 % (37.0-47.0) L Mean Corpuscular Volume 106 FL (80-99) H Mean Corpuscular Hemoglobin 31.5 PG (27.0-31.0) H Mean Corpuscular Hemoglobin Concent 29.8 G/DL (32.0-36.0) L Red Cell Distribution Width 17.7 % (11.6-14.8) H Platelet Count 418 K/UL (150-450) Mean Platelet Volume 4.8 FL (6.5-10.1) L Neutrophils (%) (Auto) % (45.0-75.0) Lymphocytes (%) (Auto) % (20.0-45.0) Monocytes (%) (Auto) % (1.0-10.0) Eosinophils (%) (Auto) % (0.0-3.0) Basophils (%) (Auto) % (0.0-2.0) Differential Total Cells Counted 100 Neutrophils % (Manual) 86 % (45-75) H Lymphocytes % (Manual) 5 % (20-45) L Monocytes % (Manual) 8 % (1-10) Eosinophils % (Manual) 1 % (0-3) Basophils % (Manual) 0 % (0-2) Band Neutrophils 0 % (0-8) Platelet Estimate Adequate Platelet Morphology Normal Anisocytosis 1+ Sodium Level 141 MMOL/L (136-145) Potassium Level 4.7 MMOL/L (3.5-5.1) Chloride Level 103 MMOL/L (98-107) Carbon Dioxide Level 37 MMOL/L (21-32) H Anion Gap 1 mmol/L (5-15) L Blood Urea Nitrogen 4 mg/dL (7-18) L Creatinine 0.7 MG/DL (0.55-1.30) Estimat Glomerular Filtration Rate mL/min (>60) Glucose Level 86 MG/DL (74-106) Calcium Level 9.3 MG/DL (8.5-10.1) Magnesium Level 2.1 MG/DL (1.8-2.4) Total Bilirubin 0.3 MG/DL (0.2-1.0) Aspartate Amino Transf (AST/SGOT) 23 U/L (15-37) Alanine Aminotransferase (ALT/SGPT) 27 U/L (12-78) Alkaline Phosphatase 139 U/L (46-116) H Total Protein 6.9 G/DL (6.4-8.2) Albumin 2.6 G/DL (3.4-5.0) L Globulin 4.3 g/dL Albumin/Globulin Ratio 0.6 (1.0-2.7) L Urine Color Pale yellow Urine Appearance Clear Urine pH 7 (4.5-8.0) Urine Specific Reynolds 1.010 (1.005-1.035) Urine Protein Negative (NEGATIVE) Urine Glucose (UA) Negative (NEGATIVE) Urine Ketones Negative (NEGATIVE) Urine Blood 2+ (NEGATIVE) H Urine Nitrite Negative (NEGATIVE) Urine Bilirubin Negative (NEGATIVE) Urine Urobilinogen Normal MG/DL (0.0-1.0) Urine Leukocyte Esterase 1+ (NEGATIVE) H Urine RBC 2-4 /HPF (0 - 2) H Urine WBC 2-4 /HPF (0 - 2) Urine Squamous Epithelial Cells Few /LPF (NONE/OCC) Urine Calcium Oxalate Crystals /LPF (NONE) Urine Bacteria Few /HPF (NONE) Current Medications Medications (Trade) Dose Ordered Sig/Kate Route PRN Reason Start Time Stop Time Status Last Admin Dose Admin Acetaminophen (Tylenol) 1,000 mg Q8H PRN ORAL For Pain 04/20/19 21:48 05/20/19 21:47 04/25/19 00:27 Artificial Tears (Akwa-Tears) 1 drop DAILY BOTH EYES 04/21/19 09:00 05/20/19 08:59 04/25/19 09:00 Atorvastatin Calcium (Lipitor) 10 mg BEDTIME ORAL 04/21/19 21:00 05/19/19 20:59 04/24/19 20:41 Beclomethasone Dipropionate (Qvar 40 Inhaler) 2 puff TWICE A DAY INH 04/21/19 09:00 05/19/19 20:59 04/24/19 09:14 Dextrose (Dextrose 50%) 25 ml Q30M PRN IV Hypoglycemia 04/20/19 22:15 05/19/19 15:44 Dextrose (Dextrose 50%) 50 ml Q30M PRN IV Hypoglycemia 04/20/19 22:15 05/19/19 15:44 Docusate Sodium (Colace) 100 mg TWICE A DAY ORAL 04/21/19 09:00 05/20/19 08:59 04/23/19 08:43 Escitalopram Oxalate (Lexapro) 5 mg DAILY ORAL 04/21/19 09:00 05/20/19 08:59 04/25/19 10:08 Furosemide (Lasix) 20 mg 1700 ORAL 04/25/19 17:00 05/25/19 16:59 Furosemide (Lasix) 40 mg DAILY ORAL 04/21/19 09:00 05/20/19 08:59 04/25/19 10:08 Iron Sucrose 100 mg/Sodium Chloride 60 ml @ 240 mls/hr BEDTIME IV 04/21/19 21:00 04/25/19 21:14 04/24/19 20:40 Magnesium Hydroxide (Mom) 30 ml Q8H PRN ORAL Constipation 04/20/19 21:49 05/20/19 21:48 Meropenem 1 gm/ Sodium Chloride 55 ml @ 110 mls/hr Q12HR IVPB 04/22/19 21:00 04/27/19 20:59 04/25/19 11:40 Metoprolol Tartrate (Lopressor) 25 mg Q12HR ORAL 04/21/19 09:00 05/19/19 20:59 04/25/19 10:09 Pantoprazole (Protonix) 40 mg DAILY ORAL 04/21/19 09:00 05/20/19 08:59 04/25/19 09:00 Polyethylene Glycol (Miralax) 17 gm Q8H PRN ORAL Constipation 04/20/19 21:49 05/20/19 21:48 Potassium Chloride (K-Dur) 40 meq TWICE A DAY ORAL 04/21/19 09:00 05/21/19 08:59 04/25/19 10:08 Sennosides (Senokot) 8.6 mg DAILY ORAL 04/21/19 09:00 05/20/19 08:59 04/23/19 08:42 Jori Anaya MD Apr 25, 2019 16:35
--- NOTE | 2019-04-25 17:45 | NUR ---
NURSE NOTES: pt arrived to tele in stable condition. pt on patient monitor no signs of cardiac or respiratory distress at this time. v/s BP118/77 , t 98.2 R20, HR114 O294. pt alert an oriented x4. Belonging sheet signed and reviewed by pt and with pt. Bed locked and in lowest position. Call light within reach. will continue to monitor pt.
--- NOTE | 2019-04-25 19:20 | NUR ---
NURSE NOTES: Received patient from STEVEN Miller, AOx4, room air now, O2 @2L n/c, PRN, BIPAP prn ,talkative, in good mood, IV sites on right hand g 22 saline lock, asymptomatic, intact, patent, no skin impairment, bed low &locked, side rails upx2, call light within reach, will continue to monitor and reassess.
--- NOTE | 2019-04-25 19:25 | NUR ---
NURSE NOTES: Received patient from STEVEN Miller,AOx4, room air now, O2 @2L n/c, PRN, BIPAP prn ,talkative, in good mood, IV sites on right hand G22 saline lock, asymptomatic, intact, patent, no skin impairment, bed low &locked, side rails upx3, call light within reach, will continue to monitor and reassess.
[2019-04-25 20:00] VITALS: BP 108/61
--- NOTE | 2019-04-25 20:01 | NUR ---
HAND-OFF: Report given to Ita/rn pt in stable condition.
[2019-04-25] MEDS: Iron Sucrose 100 MG in NS 55 ML IV SCH (20:15)
[2019-04-26] VITALS: BP 119/59
--- NOTE | 2019-04-26 01:01 | Progress Note ---
DATE: 04/25/2019 CARDIOLOGY PROGRESS NOTE SUBJECTIVE: The patient is awake, alert, and has less shortness of breath. No chest pain. Monitored rhythm, sinus. OBJECTIVE: VITAL SIGNS: Blood pressure 113/58, heart rate 70, respiratory rate 18, afebrile. LUNGS: Bilateral breath sounds. No wheezing. Few rales. CARDIAC: Regular rhythm and rate. Normal S1, S2 with a 1/6 systolic apical murmur. ABDOMEN: Soft, nontender. EXTREMITIES: No edema. NEUROLOGIC: Baseline left hemiparesis. LABORATORY AND DIAGNOSTIC DATA: Chest x-ray notes increasing upper lung interstitial opacity, which may be infiltrate or edema. White count 18.5 and hemoglobin 8.7. Urinalysis with no active sediment. Potassium 4.7, magnesium 2.1, BUN 4, and creatinine 0.7. IMPRESSION: 1. Acute myocardial infarction. 2. Sepsis 3. Pulmonary infiltrates. 4. Moderate protein-calorie malnutrition. 5. Acute and chronic diastolic congestive heart failure. 6. Paroxysmal atrial fibrillation. 7. Rising white count. PLAN: 1. Antimicrobials. 2. Avoid positive fluid balance. 3. May need to advance diuresis. 4. Cardioembolic prophylaxis with anticoagulant therapy. 5. Titrate anti-failure regimen monitoring blood pressure parameters closely. Jan Moreno M.D. DR: Pantera JOB#: [id number] CC:
[2019-04-26 04:00] VITALS: BP 129/65
[2019-04-26 06:51] LABS: BASOPHILS % (AUTO) 0.7 % (0.0-2.0); HEMATOCRIT 30.2 % (37.0-47.0); HEMOGLOBIN 8.8 G/DL (12.0-16.0); LYMPHOCYTES % (AUTO) 17.1 % (20.0-45.0); MEAN CORPUSCULAR VOLUME 107 FL (80-99); MONOCYTES % (AUTO) 5.2 % (1.0-10.0); NEUTROPHILS % (AUTO) 74.9 % (45.0-75.0); PLATELET COUNT 471 K/UL (150-450); RED BLOOD COUNT 2.83 M/UL (4.20-5.40); RED CELL DISTRIBUTION WIDTH 17.8 % (11.6-14.8); WHITE BLOOD COUNT 15.6 K/UL (4.8-10.8)
[2019-04-26 07:40] LABS: ANION GAP 1 mmol/L (5-15); BLOOD UREA NITROGEN 12 mg/dL (7-18); CALCIUM 9.6 MG/DL (8.5-10.1); CARBON DIOXIDE 38 MMOL/L (21-32); CHLORIDE 103 MMOL/L (98-107); CREATININE 0.9 MG/DL (0.55-1.30); POTASSIUM 4.7 MMOL/L (3.5-5.1); SODIUM 142 MMOL/L (136-145)
--- NOTE | 2019-04-26 07:40 | NUR ---
HAND-OFF: Report given to STEVEN Samuel, patient in stable comdition, plan of care endorse.
--- NOTE | 2019-04-26 07:43 | NUR ---
NURSE NOTES: Nurse report given by STEVEN March. Patient's awake, high toussaint, eating breakfast 1:1 feeder. Bed low and locked, call light within reach, side rails x 3, safety precaution is on. IV is TKO, patent and asymptomatic. AO x 2, denies pain, no s/s of distress or SOB. Will continue to monitor.
[2019-04-26 08:00] VITALS: BP 120/71
[2019-04-26] MEDS: Metoprolol 25mg tab ORAL SCH ×2 (09:11→21:00)
[2019-04-26] MEDS: Qvar 40mcg Inhaler 6.8 gm INH SCH ×2 (09:11→19:45)
[2019-04-26] MEDS: Docusate 100mg cap ORAL SCH ×2 (09:12→17:48)
[2019-04-26] MEDS: Sennosides 8.6mg tab ORAL SCH (09:12)
[2019-04-26] MEDS: Meropenem 1 GM in NS 55 ML IVPB SCH ×2 (09:13→21:29)
--- NOTE | 2019-04-26 11:00 | Nephrology Progress Note ---
Assessment/Plan Assessment/Plan: A/P 1. esbl e.coli uti/pyelonephritis, sepsis, ? pna, leukocytosis, fevers, elevated lactic acid - meropenem - day # 11/25 - monitor lab - clinically otherwise stable, c.diff. negative thus far 2. Hypertension. Stable 3. Diabetes. ISS and accuchecks 4. Dyslipidemia. Subjective Date patient seen: Apr 26, 2019 Time patient seen: 10:53 ROS Limited/Unobtainable: No Allergies: Coded Allergies: No Known Allergies (Unverified , 06/05/14) Subjective Patient sitting up in chair Objective Last 24 Hour Vital Signs Date Time Temp Pulse Resp B/P (MAP) Pulse Ox O2 Delivery O2 Flow Rate FiO2 04/26/19 09:11 81 120/71 04/26/19 09:10 97 Nasal Cannula 2.0 28 04/26/19 08:00 127 04/26/19 08:00 97.6 81 20 120/71 (87) 98 04/26/19 04:01 72 04/26/19 04:00 97.6 87 18 129/65 (86) 97 04/26/19 00:00 70 04/26/19 00:00 97.9 77 18 119/59 (79) 96 04/25/19 21:20 76 108/61 04/25/19 21:00 Nasal Cannula 2.0 04/25/19 20:00 71 04/25/19 20:00 98.2 76 18 108/61 (77) 95 04/25/19 19:38 94 Nasal Cannula 2.0 28 04/25/19 18:00 68 04/25/19 16:00 98.2 71 18 111/52 (71) 96 04/25/19 12:00 59 04/25/19 12:00 99.0 66 18 108/62 (77) 99 Intake and Output 04/25/19 04/26/19 19:00 07:00 Intake Total 360 ml 320 ml Balance 360 ml 320 ml Intake Oral 360 ml 120 ml Other 200 ml # Voids 2 3 # Bowel Movements 3 2 Laboratory Tests 04/26/19 05:22: White Blood Count 15.6H, Red Blood Count 2.83L, Hemoglobin 8.8L, Hematocrit 30.2L, Mean Corpuscular Volume 107H, Mean Corpuscular Hemoglobin 31.3H, Mean Corpuscular Hemoglobin Concent 29.3L, Red Cell Distribution Width 17.8H, Platelet Count 471H, Mean Platelet Volume 4.5L, Neutrophils (%) (Auto) 74.9, Lymphocytes (%) (Auto) 17.1L, Monocytes (%) (Auto) 5.2, Eosinophils (%) (Auto) 2.0, Basophils (%) (Auto) 0.7, Sodium Level 142, Potassium Level 4.7, Chloride Level 103, Carbon Dioxide Level 38H, Anion Gap 1L, Blood Urea Nitrogen 12, Creatinine 0.9, Estimat Glomerular Filtration Rate , Glucose Level 80, Calcium Level 9.6 Height (Feet): 5 Height (Inches): 5.00 Weight (Pounds): 150 General Appearance: no apparent distress, alert EENT: normal ENT inspection Neck: normal alignment, supple Cardiovascular: normal rate, regular rhythm Respiratory/Chest: lungs clear, normal breath sounds Abdomen: non tender, soft Edema: no edema noted Arm (L), no edema noted Arm (R), no edema noted Leg (L), no edema noted Leg (R), no edema noted Pedal (L), no edema noted Pedal (R), no edema noted Generalized Duncan Wing MD Apr 26, 2019 11:00
[2019-04-26 12:00] VITALS: BP 105/57
--- NOTE | 2019-04-26 12:16 | Pulmonology Progress Note ---
Assessment/Plan Assessment/Plan 1. COPD with respiratory failure, resolved 2. Sick sinus syndrome. 3. Septic shock due to UTI, resolved 4. CHF 5. Hypertension. 6. Hyperlipidemia. 7. CKD. 8. GERD. 9. History of prior GI bleed. feels ok slight cough continued improvement WBC down cont rx dc planning per Dr Bowen reviewed CXR - nothing significant Subjective Constitutional: Reports: no symptoms Respiratory: Denies: productive cough, shortness of breath Allergies: Coded Allergies: No Known Allergies (Unverified , 06/05/14) Objective Last 24 Hour Vital Signs Date Time Temp Pulse Resp B/P (MAP) Pulse Ox O2 Delivery O2 Flow Rate FiO2 04/26/19 09:11 81 120/71 04/26/19 09:10 97 Nasal Cannula 2.0 28 04/26/19 08:00 127 04/26/19 08:00 97.6 81 20 120/71 (87) 98 04/26/19 04:01 72 04/26/19 04:00 97.6 87 18 129/65 (86) 97 04/26/19 00:00 70 04/26/19 00:00 97.9 77 18 119/59 (79) 96 04/25/19 21:20 76 108/61 04/25/19 21:00 Nasal Cannula 2.0 04/25/19 20:00 71 04/25/19 20:00 98.2 76 18 108/61 (77) 95 04/25/19 19:38 94 Nasal Cannula 2.0 28 04/25/19 18:00 68 04/25/19 16:00 98.2 71 18 111/52 (71) 96 Intake and Output 04/25/19 04/26/19 19:00 07:00 Intake Total 360 ml 320 ml Balance 360 ml 320 ml Intake Oral 360 ml 120 ml Other 200 ml # Voids 2 3 # Bowel Movements 3 2 General Appearance: no acute distress HEENT: atraumatic Respiratory/Chest: lungs clear Cardiovascular: normal rate Microbiology Date/Time Source Procedure Growth Status 04/24/19 15:15 Blood Blood Culture - Preliminary NO GROWTH AFTER 24 HOURS Resulted 04/24/19 15:00 Blood Blood Culture - Preliminary NO GROWTH AFTER 24 HOURS Resulted 04/24/19 23:25 Stool Clostridium difficile Toxin Assay - Final Complete 04/25/19 07:00 Urine,Clean Catch Urine Culture - Preliminary NO GROWTH Resulted Laboratory Tests 04/26/19 05:22: White Blood Count 15.6H, Red Blood Count 2.83L, Hemoglobin 8.8L, Hematocrit 30.2L, Mean Corpuscular Volume 107H, Mean Corpuscular Hemoglobin 31.3H, Mean Corpuscular Hemoglobin Concent 29.3L, Red Cell Distribution Width 17.8H, Platelet Count 471H, Mean Platelet Volume 4.5L, Neutrophils (%) (Auto) 74.9, Lymphocytes (%) (Auto) 17.1L, Monocytes (%) (Auto) 5.2, Eosinophils (%) (Auto) 2.0, Basophils (%) (Auto) 0.7, Sodium Level 142, Potassium Level 4.7, Chloride Level 103, Carbon Dioxide Level 38H, Anion Gap 1L, Blood Urea Nitrogen 12, Creatinine 0.9, Estimat Glomerular Filtration Rate , Glucose Level 80, Calcium Level 9.6 Current Medications Medications (Trade) Dose Ordered Sig/Kate Route PRN Reason Start Time Stop Time Status Last Admin Dose Admin Acetaminophen (Tylenol) 1,000 mg Q8H PRN ORAL For Pain 04/20/19 21:48 05/20/19 21:47 04/25/19 17:46 Artificial Tears (Akwa-Tears) 1 drop DAILY BOTH EYES 04/21/19 09:00 05/20/19 08:59 04/26/19 09:11 Atorvastatin Calcium (Lipitor) 10 mg BEDTIME ORAL 04/21/19 21:00 05/19/19 20:59 04/25/19 21:20 Beclomethasone Dipropionate (Qvar 40 Inhaler) 2 puff TWICE A DAY INH 04/21/19 09:00 05/19/19 20:59 04/26/19 09:11 Dextrose (Dextrose 50%) 25 ml Q30M PRN IV Hypoglycemia 04/20/19 22:15 05/19/19 15:44 Dextrose (Dextrose 50%) 50 ml Q30M PRN IV Hypoglycemia 04/20/19 22:15 05/19/19 15:44 Docusate Sodium (Colace) 100 mg TWICE A DAY ORAL 04/21/19 09:00 05/20/19 08:59 04/26/19 09:12 Escitalopram Oxalate (Lexapro) 5 mg DAILY ORAL 04/21/19 09:00 05/20/19 08:59 04/26/19 09:12 Furosemide (Lasix) 20 mg 1700 ORAL 04/25/19 17:00 05/25/19 16:59 04/25/19 17:45 Furosemide (Lasix) 40 mg DAILY ORAL 04/27/19 09:00 05/27/19 08:59 Magnesium Hydroxide (Mom) 30 ml Q8H PRN ORAL Constipation 04/20/19 21:49 05/20/19 21:48 Meropenem 1 gm/ Sodium Chloride 55 ml @ 110 mls/hr Q12HR IVPB 04/25/19 21:00 04/30/19 20:59 04/26/19 09:13 Metoprolol Tartrate (Lopressor) 25 mg Q12HR ORAL 04/21/19 09:00 05/19/19 20:59 04/26/19 09:11 Pantoprazole (Protonix) 40 mg DAILY ORAL 04/21/19 09:00 05/20/19 08:59 04/26/19 09:12 Polyethylene Glycol (Miralax) 17 gm Q8H PRN ORAL Constipation 04/20/19 21:49 05/20/19 21:48 Potassium Chloride (K-Dur) 40 meq TWICE A DAY ORAL 04/21/19 09:00 05/21/19 08:59 04/26/19 09:12 Sennosides (Senokot) 8.6 mg DAILY ORAL 04/21/19 09:00 05/20/19 08:59 04/26/19 09:12 Gio Feng MD Apr 26, 2019 12:16
[2019-04-26 16:00] VITALS: BP 107/57
[2019-04-26] MEDS: Acetaminophen 500mg (ES) tab ORAL PRN (17:47)
--- NOTE | 2019-04-26 18:44 | NUR ---
CASE MANAGEMENT: REVIEW SI: MAR/ . UTI 96.5 HR 64 RR 20 BP 105/57 SAT 97% NC/2L WBC 15.6 H/H 8.8/30.2 IS: LASIX PO QD MEROPENEM IV Q12HR LIPITOR PO QHS QVAR INH BID LOPRESSOR PO Q12HR K-DUR PO BID TELEMETRY UNIT STATUS DCP: PATIENT IS FROM [facility]
--- NOTE | 2019-04-26 19:06 | Infectious Diseases Prog Note ---
Assessment/Plan Assessment/Plan ASSESSMENT AND PLAN: 1. esbl e.coli uti/pyelonephritis, sepsis, ? pna, leukocytosis, fevers, elevated lactic acid - meropenem - day # 5/10 - leukocytosis better, blood cultures negative, fevers resolved - monitor labs and chest x-ray - clinically otherwise stable, c.diff. negative 2. Hypertension. 3. Diabetes. 4. Dyslipidemia. 5. Blood sugar and blood pressure treatment for diabetes and hypertension per primary consultants. 6. Congestive heart failure. 7. Valvular heart disease. 8. Anemia. 9. Gastroesophageal reflux disease. 10. Chronic obstructive pulmonary disease. 11. Congestive heart failure. 12. Hypertensive heart disease. 13. Coronary arthrosclerosis. 14. Cerebrovascular accident with right hemiparesis. 15. Chronic kidney disease. 16. No known drug allergies. 17. Social history negative. 18. Family history noncontributory. 19. MAR is noted. 20. Case discussed with RN. 21. Continue treatment per primary consultants. 22. Notes and records were noted. 23. Orders were entered. 24. Past medical history is noted. Subjective Constitutional: Reports: fatigue; Denies: fever HEENT: Denies: congestion Respiratory: Denies: shortness of breath Cardiovascular: Denies: chest pain Gastrointestinal/Abdominal: Denies: nausea, vomiting, diarrhea Genitourinary: Reports: other - no hicks ; Denies: dysuria, hematuria, frequency Neurologic: Denies: headache Psychiatric: Denies: depression Skin: Denies: rash Hematologic: Denies: bleeding Musculoskeletal: Denies: pain Allergies: Coded Allergies: No Known Allergies (Unverified , 06/05/14) Objective Vital Signs Last 24 Hour Vital Signs Date Time Temp Pulse Resp B/P (MAP) Pulse Ox O2 Delivery O2 Flow Rate FiO2 04/26/19 16:00 69 04/26/19 16:00 96.5 64 20 107/57 (74) 98 04/26/19 12:00 97.7 64 18 105/57 (73) 100 04/26/19 12:00 66 04/26/19 09:11 81 120/71 04/26/19 09:10 97 Nasal Cannula 2.0 28 04/26/19 08:00 127 04/26/19 08:00 97.6 81 20 120/71 (87) 98 04/26/19 04:01 72 04/26/19 04:00 97.6 87 18 129/65 (86) 97 04/26/19 00:00 70 04/26/19 00:00 97.9 77 18 119/59 (79) 96 04/25/19 21:20 76 108/61 04/25/19 21:00 Nasal Cannula 2.0 04/25/19 20:00 71 04/25/19 20:00 98.2 76 18 108/61 (77) 95 04/25/19 19:38 94 Nasal Cannula 2.0 28 Height (Feet): 5 Height (Inches): 5.00 Weight (Pounds): 150 General Appearance: no acute distress HEENT: normocephalic, atraumatic, anicteric, mucous membranes moist Respiratory/Chest: lungs clear, normal breath sounds, no respiratory distress, no accessory muscle use Cardiovascular: normal rate, regular rhythm, no gallop/murmur, no JVD Abdomen: normal bowel sounds, soft, non tender, no organomegaly, non distended Genitourinary: other - no hicks, no cva pain Extremities: no cyanosis Skin: no rash 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 Right perihilar atelectasis or scarring is unchanged. Reticular interstitial opacities in the upper lungs are slightly more prominent than on the prior exam. The heart size is upper limits normal. The aorta is tortuous ectatic and calcified. There are degenerative changes of both shoulders Impression: Increasingly prominent bilateral upper lung reticular interstitial opacities. Suspected artifactual due to lower lung volumes resulting in crowding of the bronchovascular markings, but developing infiltrates also possible. Recommend follow-up radiographs Other stable findings as described Microbiology Date/Time Source Procedure Growth Status 04/24/19 15:15 Blood Blood Culture - Preliminary NO GROWTH AFTER 24 HOURS Resulted 04/24/19 15:00 Blood Blood Culture - Preliminary NO GROWTH AFTER 24 HOURS Resulted 04/24/19 23:25 Stool Clostridium difficile Toxin Assay - Final Complete 04/25/19 07:00 Urine,Clean Catch Urine Culture - Preliminary NO GROWTH Resulted Laboratory Tests Test 04/26/19 05:22 White Blood Count 15.6 K/UL (4.8-10.8) H Red Blood Count 2.83 M/UL (4.20-5.40) L Hemoglobin 8.8 G/DL (12.0-16.0) L Hematocrit 30.2 % (37.0-47.0) L Mean Corpuscular Volume 107 FL (80-99) H Mean Corpuscular Hemoglobin 31.3 PG (27.0-31.0) H Mean Corpuscular Hemoglobin Concent 29.3 G/DL (32.0-36.0) L Red Cell Distribution Width 17.8 % (11.6-14.8) H Platelet Count 471 K/UL (150-450) H Mean Platelet Volume 4.5 FL (6.5-10.1) L Neutrophils (%) (Auto) 74.9 % (45.0-75.0) Lymphocytes (%) (Auto) 17.1 % (20.0-45.0) L Monocytes (%) (Auto) 5.2 % (1.0-10.0) Eosinophils (%) (Auto) 2.0 % (0.0-3.0) Basophils (%) (Auto) 0.7 % (0.0-2.0) Sodium Level 142 MMOL/L (136-145) Potassium Level 4.7 MMOL/L (3.5-5.1) Chloride Level 103 MMOL/L (98-107) Carbon Dioxide Level 38 MMOL/L (21-32) H Anion Gap 1 mmol/L (5-15) L Blood Urea Nitrogen 12 mg/dL (7-18) Creatinine 0.9 MG/DL (0.55-1.30) Estimat Glomerular Filtration Rate mL/min (>60) Glucose Level 80 MG/DL (74-106) Calcium Level 9.6 MG/DL (8.5-10.1) Current Medications Medications (Trade) Dose Ordered Sig/Kate Route PRN Reason Start Time Stop Time Status Last Admin Dose Admin Acetaminophen (Tylenol) 1,000 mg Q8H PRN ORAL For Pain 04/20/19 21:48 05/20/19 21:47 04/26/19 17:47 Artificial Tears (Akwa-Tears) 1 drop DAILY BOTH EYES 04/21/19 09:00 05/20/19 08:59 04/26/19 09:11 Atorvastatin Calcium (Lipitor) 10 mg BEDTIME ORAL 04/21/19 21:00 05/19/19 20:59 04/25/19 21:20 Beclomethasone Dipropionate (Qvar 40 Inhaler) 2 puff TWICE A DAY INH 04/21/19 09:00 05/19/19 20:59 04/26/19 09:11 Dextrose (Dextrose 50%) 25 ml Q30M PRN IV Hypoglycemia 04/20/19 22:15 05/19/19 15:44 Dextrose (Dextrose 50%) 50 ml Q30M PRN IV Hypoglycemia 04/20/19 22:15 05/19/19 15:44 Docusate Sodium (Colace) 100 mg TWICE A DAY ORAL 04/21/19 09:00 05/20/19 08:59 04/26/19 09:12 Escitalopram Oxalate (Lexapro) 5 mg DAILY ORAL 04/21/19 09:00 05/20/19 08:59 04/26/19 09:12 Furosemide (Lasix) 20 mg 1700 ORAL 04/25/19 17:00 05/25/19 16:59 04/26/19 17:46 Furosemide (Lasix) 40 mg DAILY ORAL 04/27/19 09:00 05/27/19 08:59 Magnesium Hydroxide (Mom) 30 ml Q8H PRN ORAL Constipation 04/20/19 21:49 05/20/19 21:48 Meropenem 1 gm/ Sodium Chloride 55 ml @ 110 mls/hr Q12HR IVPB 04/25/19 21:00 04/30/19 20:59 04/26/19 09:13 Metoprolol Tartrate (Lopressor) 25 mg Q12HR ORAL 04/21/19 09:00 05/19/19 20:59 04/26/19 09:11 Pantoprazole (Protonix) 40 mg DAILY ORAL 04/21/19 09:00 05/20/19 08:59 04/26/19 09:12 Polyethylene Glycol (Miralax) 17 gm Q8H PRN ORAL Constipation 04/20/19 21:49 05/20/19 21:48 Potassium Chloride (K-Dur) 40 meq TWICE A DAY ORAL 04/21/19 09:00 05/21/19 08:59 04/26/19 17:46 Sennosides (Senokot) 8.6 mg DAILY ORAL 04/21/19 09:00 05/20/19 08:59 04/26/19 09:12 Jori Anaya MD Apr 26, 2019 19:06
--- NOTE | 2019-04-26 19:50 | NUR ---
HAND-OFF: Report given to Sunitha March RN. Plan of care endorsed. .
--- NOTE | 2019-04-26 19:54 | NUR ---
NURSE NOTES: Received patient from STEVEN Samuel. Patient alert, talkative, and resting in bed comfortably. No signs of distress or pain noted. Patient able to make needs known. IV site checked, intact and patent, no signs of erythema, bleeding, or infiltration. Bed in lowest position, brakes on, and call light within reach.
[2019-04-26 20:00] VITALS: BP 95/58
[2019-04-27] VITALS: BP 99/61
[2019-04-27] MEDS: Acetaminophen 500mg (ES) tab ORAL PRN ×3 (02:22→22:37)
--- NOTE | 2019-04-27 03:30 | Progress Note ---
DATE: 04/26/2019 CARDIOLOGY PROGRESS NOTE SUBJECTIVE: The patient feels better. Slight cough. No chest pain. No shortness of breath. OBJECTIVE: VITAL SIGNS: Blood pressure 120/71, pulse 81, respirations 20. Monitored rhythm sinus. LUNGS: Few rhonchi. CARDIAC: Regular rhythm and rate. Normal S1, S2 with a 1/6 systolic apical murmur. ABDOMEN: Soft, nontender. EXTREMITIES: No edema. Left-sided hemiparesis. IMPRESSION: 1. Acute myocardial infarction. 2. Paroxysmal atrial fibrillation. 3. Acute on chronic diastolic congestive heart failure, now clinically compensated. 4. COPD with respiratory failure and acute on chronic respiratory acidosis, now resolved. 5. Septic shock, recovered. 6. Chronic kidney disease with hypertensive heart disease and stable blood pressure control at this time. PLAN: 1. Stable with current medication regimen. 2. No plan for further diagnostic studies, medical management. 3. Current cardiovascular regimen adequate, but will need long-term monitoring and titration of maintenance dose diuretic. Jan Moreno M.D. DR: LUCIANA JOB#: [id number] CC:
[2019-04-27 04:00] VITALS: BP 103/74
[2019-04-27 07:20] LABS: BASOPHILS % (AUTO) 0.9 % (0.0-2.0); EOSINOPHILS % (AUTO) 1.7 % (0.0-3.0); HEMATOCRIT 30.1 % (37.0-47.0); HEMOGLOBIN 8.9 G/DL (12.0-16.0); LYMPHOCYTES % (AUTO) 14.7 % (20.0-45.0); MEAN CORPUSCULAR VOLUME 107 FL (80-99); MONOCYTES % (AUTO) 7.2 % (1.0-10.0); NEUTROPHILS % (AUTO) 75.5 % (45.0-75.0); PLATELET COUNT 510 K/UL (150-450); RED BLOOD COUNT 2.82 M/UL (4.20-5.40); RED CELL DISTRIBUTION WIDTH 17.2 % (11.6-14.8); WHITE BLOOD COUNT 16.5 K/UL (4.8-10.8)
--- NOTE | 2019-04-27 07:27 | NUR ---
HAND-OFF: Report given to STEVEN Hester. Plan of care endorsed.
--- NOTE | 2019-04-27 07:30 | NUR ---
NURSE NOTES: Received report from Eli/RN, Patient is asleep, Lying semi-toussaint's, resting comfortably. On 2L nasal canula, no acute distress/SOB noted. Able to make needs known. IV on right FA, Patent, no infiltration or bleeding noted. Bed in low position and locked, Bed alarm is on, side rails up x2. Call light within reach. Will continue plan of care.
[2019-04-27 07:44] LABS: ANION GAP 1 mmol/L (5-15); BLOOD UREA NITROGEN 14 mg/dL (7-18); CALCIUM 9.5 MG/DL (8.5-10.1); CARBON DIOXIDE 38 MMOL/L (21-32); CHLORIDE 102 MMOL/L (98-107); CREATININE 0.9 MG/DL (0.55-1.30); POTASSIUM 4.6 MMOL/L (3.5-5.1); SODIUM 141 MMOL/L (136-145)
[2019-04-27 08:00] VITALS: BP 114/63
[2019-04-27] MEDS: Qvar 40mcg Inhaler 6.8 gm INH SCH ×2 (09:17→19:48)
[2019-04-27] MEDS: Sennosides 8.6mg tab ORAL SCH (09:25)
[2019-04-27] MEDS: Metoprolol 25mg tab ORAL SCH ×2 (09:25→21:10)
[2019-04-27] MEDS: Furosemide 40mg tab ORAL SCH ×2 (09:26→17:54)
[2019-04-27] MEDS: Docusate 100mg cap ORAL SCH ×2 (09:26→17:54)
[2019-04-27] MEDS: Meropenem 1 GM in NS 55 ML IVPB SCH ×2 (09:27→21:10)
[2019-04-27 12:00] VITALS: BP 113/68
--- NOTE | 2019-04-27 14:40 | General Progress Note ---
Assessment/Plan Problem List: (1) Sepsis ICD Codes: A41.9 - Sepsis SNOMED: 52583630 (2) COPD (chronic obstructive pulmonary disease) ICD Codes: J44.9 - Chronic obstructive pulmonary disease, unspecified SNOMED: 80672890 (3) Episode of generalized weakness ICD Codes: R53.1 - Weakness SNOMED: 25561140 (4) Paroxysmal A-fib ICD Codes: I48.0 - Paroxysmal atrial fibrillation SNOMED: 312626200 (5) Hypotension ICD Codes: I95.9 - Hypotension, unspecified SNOMED: 50218705 (6) CHF (congestive heart failure) ICD Codes: I50.9 - Heart failure, unspecified SNOMED: 51532987 (7) Myocardial infarct ICD Codes: I21.3 - ST elevation (STEMI) myocardial infarction of unspecified site SNOMED: 35998103 (8) Cerebral vascular accident ICD Codes: I63.9 - Cerebral infarction, unspecified SNOMED: 721439593 (9) Urinary tract infection ICD Codes: N39.0 - Urinary tract infection, site not specified SNOMED: 73587741 (10) Respiratory acidosis ICD Codes: E87.2 - Acidosis SNOMED: 29965662 (11) Upper GI bleed ICD Codes: K92.2 - Gastrointestinal hemorrhage, unspecified SNOMED: 76440179 Assessment/Plan: improved, start diet, dc iv fluids, continue antibiotics, +esbl, ID to see, meropenam orders updated,,mobilize, heme+stool stop eliquis, recent egd gastritis and colon only small polyps, wbc still high check renal US Subjective Constitutional: Reports: weakness Cardiovascular: Reports: no symptoms Respiratory: Reports: SOB with excertion Genitourinary: Reports: incontinence Neurologic/Psychiatric: Reports: pre-existing deficit Endocrine: Reports: no symptoms Hematologic/Lymphatic: Reports: anemia Allergies: Coded Allergies: No Known Allergies (Unverified , 06/05/14) Objective Last 24 Hour Vital Signs Date Time Temp Pulse Resp B/P (MAP) Pulse Ox O2 Delivery O2 Flow Rate FiO2 04/27/19 12:00 98.2 68 18 113/68 (83) 100 04/27/19 12:00 68 04/27/19 09:25 89 114/63 04/27/19 09:17 100 Nasal Cannula 2.0 28 04/27/19 09:00 Nasal Cannula 2.0 04/27/19 08:00 98.5 89 20 114/63 (80) 99 04/27/19 08:00 92 04/27/19 04:00 73 04/27/19 04:00 98.2 70 18 103/74 (84) 94 04/27/19 00:00 93 04/27/19 00:00 98.5 100 18 99/61 (74) 97 04/26/19 21:00 76 95/58 04/26/19 21:00 Nasal Cannula 2.0 04/26/19 20:00 75 04/26/19 20:00 99.3 76 18 95/58 (70) 94 04/26/19 19:43 96 Nasal Cannula 2.0 28 04/26/19 16:00 69 04/26/19 16:00 96.5 64 20 107/57 (74) 98 Intake and Output 04/26/19 04/27/19 19:00 07:00 Intake Total 420 ml 175 ml Balance 420 ml 175 ml Intake Oral 420 ml 120 ml IV Total 55 ml # Voids 4 1 # Bowel Movements 2 Laboratory Tests 04/27/19 05:21: White Blood Count 16.5H, Red Blood Count 2.82L, Hemoglobin 8.9L, Hematocrit 30.1L, Mean Corpuscular Volume 107H, Mean Corpuscular Hemoglobin 31.5H, Mean Corpuscular Hemoglobin Concent 29.6L, Red Cell Distribution Width 17.2H, Platelet Count 510H, Mean Platelet Volume 4.4L, Neutrophils (%) (Auto) 75.5H, Lymphocytes (%) (Auto) 14.7L, Monocytes (%) (Auto) 7.2, Eosinophils (%) (Auto) 1.7, Basophils (%) (Auto) 0.9, Sodium Level 141, Potassium Level 4.6, Chloride Level 102, Carbon Dioxide Level 38H, Anion Gap 1L, Blood Urea Nitrogen 14, Creatinine 0.9, Estimat Glomerular Filtration Rate , Glucose Level 84, Calcium Level 9.5 Height (Feet): 5 Height (Inches): 5.00 Weight (Pounds): 151 General Appearance: no apparent distress, alert EENT: normal ENT inspection Neck: normal alignment Cardiovascular: regular rhythm Respiratory/Chest: decreased breath sounds, rhonchi - bilaterally Abdomen: non tender, soft Edema: no edema noted Arm (L), no edema noted Arm (R), no edema noted Leg (L), no edema noted Leg (R), no edema noted Pedal (L), no edema noted Pedal (R), no edema noted Generalized Neurologic: motor weakness Pastor Bowen MD Apr 27, 2019 14:40
[2019-04-27 16:00] VITALS: BP 107/63
--- NOTE | 2019-04-27 17:00 | NUR ---
NURSE NOTES: Per MAHI Cruz, Waiting for Isolation room at [facility] for patient to be discharged
--- NOTE | 2019-04-27 17:19 | Pulmonology Progress Note ---
Assessment/Plan Assessment/Plan 1. COPD with respiratory failure, resolved 2. Sick sinus syndrome. 3. Septic shock due to UTI, resolved 4. CHF 5. Hypertension. 6. Hyperlipidemia. 7. CKD. 8. GERD. 9. History of prior GI bleed. feels ok slight cough WBC still high no evident pulmonary process to explain WBC cont rx Subjective Constitutional: Reports: no symptoms Respiratory: Reports: dry cough Allergies: Coded Allergies: No Known Allergies (Unverified , 06/05/14) Objective Last 24 Hour Vital Signs Date Time Temp Pulse Resp B/P (MAP) Pulse Ox O2 Delivery O2 Flow Rate FiO2 04/27/19 16:00 97.6 68 20 107/63 (78) 97 04/27/19 12:00 98.2 68 18 113/68 (83) 100 04/27/19 12:00 68 04/27/19 09:25 89 114/63 04/27/19 09:17 100 Nasal Cannula 2.0 28 04/27/19 09:00 Nasal Cannula 2.0 04/27/19 08:00 98.5 89 20 114/63 (80) 99 04/27/19 08:00 92 04/27/19 04:00 73 04/27/19 04:00 98.2 70 18 103/74 (84) 94 04/27/19 00:00 93 04/27/19 00:00 98.5 100 18 99/61 (74) 97 04/26/19 21:00 76 95/58 04/26/19 21:00 Nasal Cannula 2.0 04/26/19 20:00 75 04/26/19 20:00 99.3 76 18 95/58 (70) 94 04/26/19 19:43 96 Nasal Cannula 2.0 28 Intake and Output 04/26/19 04/27/19 19:00 07:00 Intake Total 420 ml 175 ml Balance 420 ml 175 ml Intake Oral 420 ml 120 ml IV Total 55 ml # Voids 4 1 # Bowel Movements 2 General Appearance: no acute distress HEENT: atraumatic Respiratory/Chest: lungs clear Cardiovascular: normal rate Microbiology Date/Time Source Procedure Growth Status 04/24/19 23:25 Stool Clostridium difficile Toxin Assay - Final Complete 04/25/19 07:00 Urine,Clean Catch Urine Culture - Final NO GROWTH AFTER 48 HOURS Complete Laboratory Tests 04/27/19 05:21: White Blood Count 16.5H, Red Blood Count 2.82L, Hemoglobin 8.9L, Hematocrit 30.1L, Mean Corpuscular Volume 107H, Mean Corpuscular Hemoglobin 31.5H, Mean Corpuscular Hemoglobin Concent 29.6L, Red Cell Distribution Width 17.2H, Platelet Count 510H, Mean Platelet Volume 4.4L, Neutrophils (%) (Auto) 75.5H, Lymphocytes (%) (Auto) 14.7L, Monocytes (%) (Auto) 7.2, Eosinophils (%) (Auto) 1.7, Basophils (%) (Auto) 0.9, Sodium Level 141, Potassium Level 4.6, Chloride Level 102, Carbon Dioxide Level 38H, Anion Gap 1L, Blood Urea Nitrogen 14, Creatinine 0.9, Estimat Glomerular Filtration Rate , Glucose Level 84, Calcium Level 9.5 Current Medications Medications (Trade) Dose Ordered Sig/Kate Route PRN Reason Start Time Stop Time Status Last Admin Dose Admin Acetaminophen (Tylenol) 1,000 mg Q8H PRN ORAL For Pain 04/20/19 21:48 05/20/19 21:47 04/27/19 10:40 Artificial Tears (Akwa-Tears) 1 drop DAILY BOTH EYES 04/21/19 09:00 05/20/19 08:59 04/27/19 09:26 Atorvastatin Calcium (Lipitor) 10 mg BEDTIME ORAL 04/21/19 21:00 05/19/19 20:59 04/26/19 21:29 Beclomethasone Dipropionate (Qvar 40 Inhaler) 2 puff TWICE A DAY INH 04/21/19 09:00 05/19/19 20:59 04/27/19 09:17 Dextrose (Dextrose 50%) 25 ml Q30M PRN IV Hypoglycemia 04/20/19 22:15 05/19/19 15:44 Dextrose (Dextrose 50%) 50 ml Q30M PRN IV Hypoglycemia 04/20/19 22:15 05/19/19 15:44 Docusate Sodium (Colace) 100 mg TWICE A DAY ORAL 04/21/19 09:00 05/20/19 08:59 04/27/19 09:26 Escitalopram Oxalate (Lexapro) 5 mg DAILY ORAL 04/21/19 09:00 05/20/19 08:59 04/27/19 09:26 Furosemide (Lasix) 20 mg 1700 ORAL 04/25/19 17:00 05/25/19 16:59 04/26/19 17:46 Furosemide (Lasix) 40 mg DAILY ORAL 04/27/19 09:00 05/27/19 08:59 04/27/19 09:26 Magnesium Hydroxide (Mom) 30 ml Q8H PRN ORAL Constipation 04/20/19 21:49 05/20/19 21:48 Meropenem 1 gm/ Sodium Chloride 55 ml @ 110 mls/hr Q12HR IVPB 04/25/19 21:00 04/30/19 20:59 04/27/19 09:27 Metoprolol Tartrate (Lopressor) 25 mg Q12HR ORAL 04/21/19 09:00 05/19/19 20:59 04/27/19 09:25 Pantoprazole (Protonix) 40 mg DAILY ORAL 04/21/19 09:00 05/20/19 08:59 04/27/19 09:25 Polyethylene Glycol (Miralax) 17 gm Q8H PRN ORAL Constipation 04/20/19 21:49 05/20/19 21:48 Potassium Chloride (K-Dur) 40 meq TWICE A DAY ORAL 04/21/19 09:00 05/21/19 08:59 04/27/19 09:26 Sennosides (Senokot) 8.6 mg DAILY ORAL 04/21/19 09:00 05/20/19 08:59 04/27/19 09:25 Gio Feng MD Apr 27, 2019 17:19
--- NOTE | 2019-04-27 19:35 | NUR ---
HAND-OFF: Report given to Miles/RN, Patient is in stable condition. Endorsed plan of care.
--- NOTE | 2019-04-27 19:50 | NUR ---
HAND-OFF: Received report and pt from STEVEN Hester. Patient on side of bed eating meal. 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 bed locked and in lowest position, call light within reach. No signs and symptoms of acute distress. Will continue plan of care..
[2019-04-27 20:00] VITALS: BP 94/54
--- NOTE | 2019-04-27 20:27 | NUR ---
HAND-OFF: Report given to Elijah RN for patient. Transferred from 202-2 to 416-1 by bed with 2L via NC. Patient is in stable condition. Endorsed plan of care to Elijah.
--- NOTE | 2019-04-27 20:30 | NUR ---
NURSE NOTES: Patient received from telemetry on o2 via NC at 2LPM. Belongings verified at bedside. No acute distress. Will continue plan of care.
[2019-04-27] MEDS ORDERED: Milk of Magnesia 30ml Ud ORAL PRN (22:00)
[2019-04-27] MEDS ORDERED: Miralax 17gm pkt ORAL PRN (22:00)
[2019-04-28] VITALS (7 sets, daily range): BP systolic 98–105; BP diastolic 46–57
--- NOTE | 2019-04-28 04:15 | Progress Note ---
DATE: 04/27/2019 CARDIOLOGY PROGRESS NOTE SUBJECTIVE: White blood count remains elevated. Slight cough noted. No complaints of shortness of breath or chest pain. OBJECTIVE: VITAL SIGNS: Blood pressure 107/63, pulse 68, and respirations 20. Monitored rhythm sinus. LUNGS: With few rhonchi. No wheezing or rales. CARDIAC: Regular rhythm and rate. Normal S1, S2 with a 1/6 systolic apical murmur. ABDOMEN: Soft. EXTREMITIES: There is no edema. LABORATORY DATA: White count is 16.5 and hemoglobin 8.9. Potassium 4.6, BUN 14, and creatinine 0.9. Chest x-ray from 04/25/2019 revealed no acute process. IMPRESSION: 1. Leukocytosis. 2. Possible new lung infection. 3. Status post acute myocardial infarction. 4. Chronic obstructive pulmonary disease. 5. Paroxysmal atrial fibrillation. 6. Hypertensive heart disease. 7. Acute on chronic diastolic congestive heart failure, now compensated. PLAN: 1. Maintenance dose diuretic with titration. 2. Recheck chest radiograph. 3. Continue anti-platelet and antianginal regimen. 4. Full anticoagulation for cardioembolic prophylaxis. 5. Statin therapy for LDL goal less than 70. Jan Moreno M.D. DR: MINA JOB#: [id number] CC:
--- NOTE | 2019-04-28 07:16 | NUR ---
HAND-OFF: Report given to Keenan HARRIS.
--- NOTE | 2019-04-28 07:30 | NUR ---
NURSE NOTES: Received pt from IVET HARRIS. Pt is alert and orient x4. Pt has NC 2LMP. pt has intact iv access RFA 22G SL. pt is eating breakfast independently. all needs attended, bed is locked and is in the lowest position, call light within easy reach. will continue to monitor.
--- NOTE | 2019-04-28 08:11 | General Progress Note ---
Assessment/Plan Problem List: (1) Sepsis ICD Codes: A41.9 - Sepsis SNOMED: 76445351 (2) COPD (chronic obstructive pulmonary disease) ICD Codes: J44.9 - Chronic obstructive pulmonary disease, unspecified SNOMED: 87156179 (3) Episode of generalized weakness ICD Codes: R53.1 - Weakness SNOMED: 20920613 (4) Paroxysmal A-fib ICD Codes: I48.0 - Paroxysmal atrial fibrillation SNOMED: 863425503 (5) Hypotension ICD Codes: I95.9 - Hypotension, unspecified SNOMED: 88647469 (6) CHF (congestive heart failure) ICD Codes: I50.9 - Heart failure, unspecified SNOMED: 08970623 (7) Myocardial infarct ICD Codes: I21.3 - ST elevation (STEMI) myocardial infarction of unspecified site SNOMED: 40258427 (8) Cerebral vascular accident ICD Codes: I63.9 - Cerebral infarction, unspecified SNOMED: 724807515 (9) Urinary tract infection ICD Codes: N39.0 - Urinary tract infection, site not specified SNOMED: 51854030 (10) Respiratory acidosis ICD Codes: E87.2 - Acidosis SNOMED: 39420589 (11) Upper GI bleed ICD Codes: K92.2 - Gastrointestinal hemorrhage, unspecified SNOMED: 23413175 Assessment/Plan: improved, start diet, dc iv fluids, continue antibiotics, +esbl, ID to see, meropenam orders updated,,mobilize, heme+stool stop eliquis, recent egd gastritis and colon only small polyps, wbc still high check renal US--only cyst Subjective Constitutional: Reports: weakness HEENT: Reports: no symptoms Cardiovascular: Reports: no symptoms Respiratory: Reports: SOB with excertion Gastrointestinal/Abdominal: Reports: no symptoms Genitourinary: Reports: incontinence Neurologic/Psychiatric: Reports: pre-existing deficit Endocrine: Reports: no symptoms Hematologic/Lymphatic: Reports: anemia Allergies: Coded Allergies: No Known Allergies (Unverified , 06/05/14) Objective Last 24 Hour Vital Signs Date Time Temp Pulse Resp B/P (MAP) Pulse Ox O2 Delivery O2 Flow Rate FiO2 04/28/19 04:00 99.0 78 20 98/46 (63) 98 04/28/19 00:00 99.4 80 20 104/56 (72) 94 04/27/19 21:10 76 94/54 10/10/19 21:00 Nasal Cannula 2.0 04/27/19 20:00 99.2 76 24 94/54 (67) 97 04/27/19 19:50 99 Nasal Cannula 2.0 28 04/27/19 18:02 68 04/27/19 16:00 97.6 68 20 107/63 (78) 97 04/27/19 12:00 98.2 68 18 113/68 (83) 100 04/27/19 12:00 68 04/27/19 09:25 89 114/63 04/27/19 09:17 100 Nasal Cannula 2.0 28 04/27/19 09:00 Nasal Cannula 2.0 Intake and Output 04/27/19 04/28/19 18:59 06:59 Intake Total 360 ml 55 ml Output Total 600 ml Balance 360 ml -545 ml Intake Oral 360 ml IV Total 55 ml Output Urine Total 600 ml # Voids 3 1 # Bowel Movements 1 1 Height (Feet): 5 Height (Inches): 5.00 Weight (Pounds): 151 General Appearance: no apparent distress, alert EENT: normal ENT inspection Neck: normal alignment Cardiovascular: normal rate, regular rhythm Respiratory/Chest: lungs clear, decreased breath sounds Abdomen: non tender Edema: no edema noted Arm (L), no edema noted Arm (R), no edema noted Leg (L), no edema noted Leg (R), no edema noted Pedal (L), no edema noted Pedal (R), no edema noted Generalized Neurologic: motor weakness Pastor Bowen MD Apr 28, 2019 08:11
--- NOTE | 2019-04-28 08:44 | Pulmonology Progress Note ---
Assessment/Plan Assessment/Plan 1. COPD with respiratory failure, resolved 2. Sick sinus syndrome. 3. Septic shock due to UTI, resolved 4. CHF 5. Hypertension. 6. Hyperlipidemia. 7. CKD. 8. GERD. 9. History of prior GI bleed. CXR, ABG F/U AML no evident pulmonary process to explain WBC cont rx Subjective Allergies: Coded Allergies: No Known Allergies (Unverified , 06/05/14) Subjective Tm 99 VSS AML pending No cough no SOB no FC Objective Last 24 Hour Vital Signs Date Time Temp Pulse Resp B/P (MAP) Pulse Ox O2 Delivery O2 Flow Rate FiO2 04/28/19 04:00 99.0 78 20 98/46 (63) 98 04/28/19 00:00 99.4 80 20 104/56 (72) 94 04/27/19 21:10 76 94/54 04/27/19 21:00 Nasal Cannula 2.0 04/27/19 20:00 99.2 76 24 94/54 (67) 97 04/27/19 19:50 99 Nasal Cannula 2.0 28 04/27/19 18:02 68 04/27/19 16:00 97.6 68 20 107/63 (78) 97 04/27/19 12:00 98.2 68 18 113/68 (83) 100 04/27/19 12:00 68 04/27/19 09:25 89 114/63 04/27/19 09:17 100 Nasal Cannula 2.0 28 04/27/19 09:00 Nasal Cannula 2.0 Intake and Output 04/27/19 04/28/19 18:59 06:59 Intake Total 360 ml 55 ml Output Total 600 ml Balance 360 ml -545 ml Intake Oral 360 ml IV Total 55 ml Output Urine Total 600 ml # Voids 3 1 # Bowel Movements 1 1 General Appearance: WD/WN, no acute distress HEENT: normocephalic, anicteric, mucous membranes moist Respiratory/Chest: chest wall non-tender, lungs clear, normal breath sounds, no respiratory distress Cardiovascular: normal peripheral pulses, normal rate, regular rhythm Abdomen: normal bowel sounds, soft, non tender, no organomegaly, non distended , no mass Extremities: no cyanosis, no clubbing, no edema Current Medications Medications (Trade) Dose Ordered Sig/Kate Route PRN Reason Start Time Stop Time Status Last Admin Dose Admin Acetaminophen (Tylenol) 1,000 mg Q8H PRN ORAL For Pain 04/27/19 22:00 05/20/19 21:47 04/27/19 22:37 Artificial Tears (Akwa-Tears) 1 drop DAILY BOTH EYES 04/28/19 09:00 05/20/19 08:59 Atorvastatin Calcium (Lipitor) 10 mg BEDTIME ORAL 04/27/19 21:00 05/19/19 20:59 04/27/19 21:10 Beclomethasone Dipropionate (Qvar 40 Inhaler) 2 puff TWICE A DAY INH 04/28/19 09:00 05/19/19 20:59 Dextrose (Dextrose 50%) 25 ml Q30M PRN IV Hypoglycemia 04/27/19 20:45 05/19/19 15:44 Dextrose (Dextrose 50%) 50 ml Q30M PRN IV Hypoglycemia 04/27/19 20:45 05/19/19 15:44 Docusate Sodium (Colace) 100 mg TWICE A DAY ORAL 04/28/19 09:00 05/20/19 08:59 Escitalopram Oxalate (Lexapro) 5 mg DAILY ORAL 04/28/19 09:00 05/20/19 08:59 Furosemide (Lasix) 20 mg 1700 ORAL 04/28/19 17:00 05/25/19 16:59 Furosemide (Lasix) 40 mg DAILY ORAL 04/28/19 09:00 05/27/19 08:59 Magnesium Hydroxide (Mom) 30 ml Q8H PRN ORAL Constipation 04/27/19 22:00 05/20/19 21:48 Meropenem 1 gm/ Sodium Chloride 55 ml @ 110 mls/hr Q12HR IVPB 04/27/19 21:00 04/30/19 20:59 04/27/19 21:10 Metoprolol Tartrate (Lopressor) 25 mg Q12HR ORAL 04/27/19 21:00 05/19/19 20:59 Pantoprazole (Protonix) 40 mg DAILY ORAL 04/28/19 09:00 05/20/19 08:59 Polyethylene Glycol (Miralax) 17 gm Q8H PRN ORAL Constipation 04/27/19 22:00 05/20/19 21:48 Potassium Chloride (K-Dur) 40 meq TWICE A DAY ORAL 04/28/19 09:00 05/21/19 08:59 Sennosides (Senokot) 8.6 mg DAILY ORAL 04/28/19 09:00 05/20/19 08:59 Raymond Florian MD Apr 28, 2019 08:44
[2019-04-28] MEDS: Qvar 40mcg Inhaler 6.8 gm INH SCH ×2 (08:49→19:44)
--- NOTE | 2019-04-28 08:59 | NUR ---
NURSE NOTES: Dr ACHARYA visited pt and ordered stat ABG and CXR, noted and carried out. will continue to monitor.
[2019-04-28] MEDS ORDERED: Furosemide 40mg tab ORAL SCH (09:00)
[2019-04-28] MEDS: Sennosides 8.6mg tab ORAL SCH (09:09)
[2019-04-28] MEDS: Metoprolol 25mg tab ORAL SCH ×2 (09:09→21:00)
[2019-04-28] MEDS: Docusate 100mg cap ORAL SCH ×2 (09:09→17:47)
[2019-04-28] MEDS: Meropenem 1 GM in NS 55 ML IVPB SCH ×2 (09:11→20:42)
--- NOTE | 2019-04-28 10:59 | NUR ---
RADIOLOGY DEPT.,CHEST X-RAY DONE.-P.DYE
--- NOTE | 2019-04-28 12:34 | NUR ---
NURSE NOTES: Eye drop wasn't in the unit, RN called pharmacy x2 so administered at this moment.
--- NOTE | 2019-04-28 12:54 | Diagnostic Imaging Report ---
Indication: Dyspnea Comparison: 04/25/2019 A single view chest radiograph was obtained. Findings: Linear density projected over the right perihilar region again demonstrated likely scarring or atelectasis. Heart size is mildly enlarged but stable. Bones are osteopenic. Degenerative changes of both shoulders demonstrated. IMPRESSION: No change from the prior exam
--- NOTE | 2019-04-28 13:20 | NUR ---
NURSE NOTES: Dr EMANUEL is aware about CXR and ABG results, no new order to RN. Will [id number] to monitor.
--- NOTE | 2019-04-28 15:42 | Infectious Diseases Prog Note ---
Assessment/Plan Assessment/Plan ASSESSMENT AND PLAN: 1. esbl e.coli uti/pyelonephritis, sepsis, ? pna, leukocytosis, fevers, elevated lactic acid - meropenem - day # 7/10 - consider CT scan A/P for persistent leukocytosis - monitor labs and chest x-ray - clinically otherwise stable, c.diff. negative 2. Hypertension. 3. Diabetes. 4. Dyslipidemia. 5. Blood sugar and blood pressure treatment for diabetes and hypertension per primary consultants. 6. Congestive heart failure. 7. Valvular heart disease. 8. Anemia. 9. Gastroesophageal reflux disease. 10. Chronic obstructive pulmonary disease. 11. Congestive heart failure. 12. Hypertensive heart disease. 13. Coronary arthrosclerosis. 14. Cerebrovascular accident with right hemiparesis. 15. Chronic kidney disease. 16. No known drug allergies. 17. Social history negative. 18. Family history noncontributory. 19. MAR is noted. 20. Case discussed with RN. 21. Continue treatment per primary consultants. 22. Notes and records were noted. 23. Orders were entered. 24. Past medical history is noted. Subjective Constitutional: Denies: fever HEENT: Denies: congestion Respiratory: Denies: shortness of breath Cardiovascular: Denies: chest pain Gastrointestinal/Abdominal: Denies: nausea, vomiting, diarrhea Genitourinary: Reports: other - no hicks Neurologic: Denies: headache Psychiatric: Denies: depression Skin: Denies: rash Hematologic: Denies: bleeding Musculoskeletal: Denies: pain Allergies: Coded Allergies: No Known Allergies (Unverified , 06/05/14) Objective Vital Signs Last 24 Hour Vital Signs Date Time Temp Pulse Resp B/P (MAP) Pulse Ox O2 Delivery O2 Flow Rate FiO2 04/28/19 12:00 98.2 64 20 101/56 (71) 99 04/28/19 09:09 74 105/57 04/28/19 09:00 Nasal Cannula 2.0 04/28/19 08:52 98 Nasal Cannula 2.0 28 04/28/19 08:00 97.9 74 20 105/57 (73) 100 04/28/19 04:00 99.0 78 20 98/46 (63) 98 04/28/19 00:00 99.4 80 20 104/56 (72) 94 04/27/19 21:10 76 94/54 04/27/19 21:00 Nasal Cannula 2.0 04/27/19 20:00 99.2 76 24 94/54 (67) 97 04/27/19 19:50 99 Nasal Cannula 2.0 28 04/27/19 18:02 68 04/27/19 16:00 97.6 68 20 107/63 (78) 97 Height (Feet): 5 Height (Inches): 5.00 Weight (Pounds): 151 General Appearance: no acute distress HEENT: normocephalic, atraumatic, anicteric, mucous membranes moist Respiratory/Chest: lungs clear, normal breath sounds, no respiratory distress, no accessory muscle use Cardiovascular: normal rate, regular rhythm, no gallop/murmur, no JVD Abdomen: normal bowel sounds, soft, non tender, no organomegaly, non distended Genitourinary: other - no hicks Extremities: no cyanosis Skin: no rash 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 Right perihilar atelectasis or scarring is unchanged. Reticular interstitial opacities in the upper lungs are slightly more prominent than on the prior exam. The heart size is upper limits normal. The aorta is tortuous ectatic and calcified. There are degenerative changes of both shoulders Impression: Increasingly prominent bilateral upper lung reticular interstitial opacities. Suspected artifactual due to lower lung volumes resulting in crowding of the bronchovascular markings, but developing infiltrates also possible. Recommend follow-up radiographs Other stable findings as described Microbiology Date/Time Source Procedure Growth Status 04/24/19 15:15 Blood Blood Culture - Preliminary NO GROWTH AFTER 72 HOURS Resulted 04/20/19 14:00 Sputum Gram Stain - Final Complete 04/20/19 14:00 Sputum Sputum Culture - Final NORMAL UPPER RESPIRATORY ALEXANDREA AT 48 ... Complete 04/24/19 23:25 Stool Clostridium difficile Toxin Assay - Final Complete 04/25/19 07:00 Urine,Clean Catch Urine Culture - Final NO GROWTH AFTER 48 HOURS Complete 04/19/19 11:30 Rectum VRE Culture - Final NO VANCOMYCIN RESISTANT ENTEROCOCCUS ... Complete Labs Test 04/26/19 05:22 04/27/19 05:21 04/28/19 09:10 White Blood Count 15.6 K/UL (4.8-10.8) 16.5 K/UL (4.8-10.8) Red Blood Count 2.83 M/UL (4.20-5.40) 2.82 M/UL (4.20-5.40) Hemoglobin 8.8 G/DL (12.0-16.0) 8.9 G/DL (12.0-16.0) Hematocrit 30.2 % (37.0-47.0) 30.1 % (37.0-47.0) Mean Corpuscular Volume 107 FL (80-99) 107 FL (80-99) Mean Corpuscular Hemoglobin 31.3 PG (27.0-31.0) 31.5 PG (27.0-31.0) Mean Corpuscular Hemoglobin Concent 29.3 G/DL (32.0-36.0) 29.6 G/DL (32.0-36.0) Red Cell Distribution Width 17.8 % (11.6-14.8) 17.2 % (11.6-14.8) Platelet Count 471 K/UL (150-450) 510 K/UL (150-450) Mean Platelet Volume 4.5 FL (6.5-10.1) 4.4 FL (6.5-10.1) Neutrophils (%) (Auto) 74.9 % (45.0-75.0) 75.5 % (45.0-75.0) Lymphocytes (%) (Auto) 17.1 % (20.0-45.0) 14.7 % (20.0-45.0) Monocytes (%) (Auto) 5.2 % (1.0-10.0) 7.2 % (1.0-10.0) Eosinophils (%) (Auto) 2.0 % (0.0-3.0) 1.7 % (0.0-3.0) Basophils (%) (Auto) 0.7 % (0.0-2.0) 0.9 % (0.0-2.0) Sodium Level 142 MMOL/L (136-145) 141 MMOL/L (136-145) Potassium Level 4.7 MMOL/L (3.5-5.1) 4.6 MMOL/L (3.5-5.1) Chloride Level 103 MMOL/L (98-107) 102 MMOL/L (98-107) Carbon Dioxide Level 38 MMOL/L (21-32) 38 MMOL/L (21-32) Anion Gap 1 mmol/L (5-15) 1 mmol/L (5-15) Blood Urea Nitrogen 12 mg/dL (7-18) 14 mg/dL (7-18) Creatinine 0.9 MG/DL (0.55-1.30) 0.9 MG/DL (0.55-1.30) Estimat Glomerular Filtration Rate mL/min (>60) mL/min (>60) Glucose Level 80 MG/DL (74-106) 84 MG/DL (74-106) Calcium Level 9.6 MG/DL (8.5-10.1) 9.5 MG/DL (8.5-10.1) Arterial Blood pH 7.371 (7.350-7.450) Arterial Blood Partial Pressure CO2 62.4 mmHg (35.0-45.0) Arterial Blood Partial Pressure O2 88.5 mmHg (75.0-100.0) Arterial Blood HCO3 35.3 mmol/L (22.0-26.0) Arterial Blood Oxygen Saturation 96.2 % (95-100) Arterial Blood Base Excess 8.6 (-2-2) Hal Test Positive Laboratory Tests Test 04/28/19 09:10 Arterial Blood pH 7.371 (7.350-7.450) Arterial Blood Partial Pressure CO2 62.4 mmHg (35.0-45.0) *H Arterial Blood Partial Pressure O2 88.5 mmHg (75.0-100.0) Arterial Blood HCO3 35.3 mmol/L (22.0-26.0) H Arterial Blood Oxygen Saturation 96.2 % (95-100) Arterial Blood Base Excess 8.6 (-2-2) H Hal Test Positive Current Medications Medications (Trade) Dose Ordered Sig/Kate Route PRN Reason Start Time Stop Time Status Last Admin Dose Admin Acetaminophen (Tylenol) 1,000 mg Q8H PRN ORAL For Pain 04/27/19 22:00 05/20/19 21:47 04/27/19 22:37 Artificial Tears (Akwa-Tears) 1 drop DAILY BOTH EYES 04/28/19 09:00 05/20/19 08:59 04/28/19 12:34 Atorvastatin Calcium (Lipitor) 10 mg BEDTIME ORAL 04/27/19 21:00 05/19/19 20:59 04/27/19 21:10 Beclomethasone Dipropionate (Qvar 40 Inhaler) 2 puff TWICE A DAY INH 04/28/19 09:00 05/19/19 20:59 04/28/19 08:49 Dextrose (Dextrose 50%) 25 ml Q30M PRN IV Hypoglycemia 04/27/19 20:45 05/19/19 15:44 Dextrose (Dextrose 50%) 50 ml Q30M PRN IV Hypoglycemia 04/27/19 20:45 05/19/19 15:44 Docusate Sodium (Colace) 100 mg TWICE A DAY ORAL 04/28/19 09:00 05/20/19 08:59 04/28/19 09:09 Escitalopram Oxalate (Lexapro) 5 mg DAILY ORAL 04/28/19 09:00 05/20/19 08:59 04/28/19 09:09 Furosemide (Lasix) 20 mg 1700 ORAL 04/28/19 17:00 05/25/19 16:59 Furosemide (Lasix) 40 mg DAILY ORAL 04/28/19 09:00 05/27/19 08:59 04/28/19 09:10 Magnesium Hydroxide (Mom) 30 ml Q8H PRN ORAL Constipation 04/27/19 22:00 05/20/19 21:48 Meropenem 1 gm/ Sodium Chloride 55 ml @ 110 mls/hr Q12HR IVPB 04/27/19 21:00 04/30/19 20:59 04/28/19 09:11 Metoprolol Tartrate (Lopressor) 25 mg Q12HR ORAL 04/27/19 21:00 05/19/19 20:59 04/28/19 09:09 Pantoprazole (Protonix) 40 mg DAILY ORAL 04/28/19 09:00 05/20/19 08:59 04/28/19 09:10 Polyethylene Glycol (Miralax) 17 gm Q8H PRN ORAL Constipation 04/27/19 22:00 05/20/19 21:48 Potassium Chloride (K-Dur) 40 meq TWICE A DAY ORAL 04/28/19 09:00 11/3/19 08:59 04/28/19 09:09 Sennosides (Senokot) 8.6 mg DAILY ORAL 04/28/19 09:00 05/20/19 08:59 04/28/19 09:09 Jori Anaya MD Apr 28, 2019 15:42
--- NOTE | 2019-04-28 20:00 | NUR ---
NURSE NOTES: Spoke to patient re: signing consent for IV contrast. Patient is unsure and stated to ask her children. next of kin is the son, spoke with son via telephone and received consent for IV contrast, witnessed with another RN. Spoke with CT, will do CT AP for patient in AM. Will keep pt NPO at midnight.
--- NOTE | 2019-04-28 20:00 | NUR ---
HAND-OFF: Report given to IVET HARRIS.
[2019-04-28] MEDS: Acetaminophen 500mg (ES) tab ORAL PRN (20:33)
--- NOTE | 2019-04-28 21:00 | NUR ---
NURSE NOTES: Received pt. in bed. Pt is alert and orient x4. bed is locked and lowest position. call light and pt. personal items within reach. will continue to monitor.
[2019-04-29] VITALS: BP 102/55
[2019-04-29 04:00] VITALS: BP 120/62
--- NOTE | 2019-04-29 05:15 | Progress Note ---
DATE: 04/28/2019 CARDIOLOGY PROGRESS NOTE SUBJECTIVE: The patient is without any new complaints. Some congestion. No shortness of breath. Blood pressure trending downward again. OBJECTIVE: NECK: Supple. LUNGS: Clear with diminished breath sounds. CARDIAC: Regular rhythm and rate. Normal S1 and S2 with a 1/6 systolic murmur. ABDOMEN: Soft. EXTREMITIES: Trace edema. LABORATORY DATA: Urine culture negative. ABG today 7.37, 62, 88. IMPRESSION: 1. Sepsis. 2. Acute myocardial infarction. 3. Paroxysmal atrial fibrillation. 4. Acute on chronic diastolic congestive heart failure, now compensated. 5. Low range blood pressure due to acute infection. 6. Acute on chronic respiratory acidosis. PLAN: 1. Follow up lab studies. 2. Decrease diuretic dosing. 3. Recheck lab studies. Jan Moreno M.D. DR: JENNIFER JOB#: [id number] CC:
--- NOTE | 2019-04-29 07:24 | NUR ---
HAND-OFF: Report given to Keenan HARRIS. kept pt. NPO after midnight.
--- NOTE | 2019-04-29 07:27 | NUR ---
NURSE NOTES: Received pt from SACHI RN. Pt is alert and orient x4. Pt has NC 2LMP. pt has intact iv access LFA 24G SL. pt is NPO due to abd CT. all needs attended, bed is locked and is in the lowest position, call light within easy reach. will continue to monitor.
[2019-04-29 08:00] VITALS: BP 101/63
[2019-04-29] MEDS: Qvar 40mcg Inhaler 6.8 gm INH SCH ×2 (08:12→19:28)
[2019-04-29] MEDS: Sennosides 8.6mg tab ORAL SCH (08:23)
[2019-04-29] MEDS: Docusate 100mg cap ORAL SCH ×2 (08:23→17:46)
[2019-04-29] MEDS: Metoprolol 25mg tab ORAL SCH ×2 (08:24→20:57)
[2019-04-29] MEDS: Meropenem 1 GM in NS 55 ML IVPB SCH ×2 (08:25→20:57)
[2019-04-29] MEDS: Acetaminophen 500mg (ES) tab ORAL PRN ×2 (09:14→17:52)
[2019-04-29 09:35] LABS: BASOPHILS % (AUTO) 0.7 % (0.0-2.0); EOSINOPHILS % (AUTO) 1.9 % (0.0-3.0); HEMATOCRIT 33.2 % (37.0-47.0); HEMOGLOBIN 9.9 G/DL (12.0-16.0); LYMPHOCYTES % (AUTO) 13.8 % (20.0-45.0); MEAN CORPUSCULAR VOLUME 108 FL (80-99); MONOCYTES % (AUTO) 8.7 % (1.0-10.0); NEUTROPHILS % (AUTO) 74.8 % (45.0-75.0); PLATELET COUNT 617 K/UL (150-450); RED BLOOD COUNT 3.09 M/UL (4.20-5.40); RED CELL DISTRIBUTION WIDTH 17.7 % (11.6-14.8); WHITE BLOOD COUNT 16.7 K/UL (4.8-10.8)
[2019-04-29 09:46] LABS: ALANINE AMINOTRANSFERASE 19 U/L (12-78); ALBUMIN 2.8 G/DL (3.4-5.0); ALBUMIN/GLOBULIN RATIO 0.6 (1.0-2.7); ALKALINE PHOSPHATASE 151 U/L (46-116); ANION GAP 2 mmol/L (5-15); ASPARTATE AMINO TRANSFERASE 19 U/L (15-37); BILIRUBIN,TOTAL 0.3 MG/DL (0.2-1.0); BLOOD UREA NITROGEN 16 mg/dL (7-18); CALCIUM 9.5 MG/DL (8.5-10.1); CARBON DIOXIDE 39 MMOL/L (21-32); CHLORIDE 102 MMOL/L (98-107); CREATININE 0.9 MG/DL (0.55-1.30); POTASSIUM 4.9 MMOL/L (3.5-5.1); SODIUM 143 MMOL/L (136-145)
--- NOTE | 2019-04-29 09:54 | NUR ---
NURSE NOTES: pt is stable and left unit for CT, waiting to come back. will continue to monitor.
--- NOTE | 2019-04-29 10:47 | NUR ---
RD ASSESSMENT & RECOMMENDATIONS SEE CARE ACTIVITY FOR COMPLETE ASSESSMENT DAILY ESTIMATED NEEDS: Needs based on pulmonary, cardiac/ 60.5kg 25-30 kcals/kg 2581-6736 total kcals 1-1.5 g protein/kg 61-91 g total protein Fluid per MD, on lasix NUTRITION DIAGNOSIS: Decreased sodium needs r/t cardiac history as evidenced by pt w/ h/o CVA, HTN, w/ elev BNP (1532), on lasix. 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 . .
--- NOTE | 2019-04-29 11:21 | Diagnostic Imaging Report ---
EXAM: CT Abdomen and Pelvis With Intravenous Contrast CLINICAL HISTORY: ABSCESS TECHNIQUE: Axial computed tomography images of the abdomen and pelvis with intravenous contrast. CTDI is 17.6 mGy and DLP is 948.5 mGy-cm. One or more of the following dose reduction techniques were used: automated exposure control, adjustment of the mA and or kV according to patient size, use of iterative reconstruction technique. COMPARISON: CT abdomen pelvis on 04 27 2016 FINDINGS: Lung bases: Bibasilar atelectasis. Bronchial wall thickening in the right lung base could represent bronchitis. Heart: Borderline size of the heart. ABDOMEN: Liver: Small hypodensity in the inferior right liver is too small to definitively characterize. Gallbladder and bile ducts: Unremarkable. No calcified stones. No ductal dilation. Pancreas: Unremarkable. No mass. No ductal dilation. Spleen: Unremarkable. No splenomegaly. Adrenals: Stable nonspecific nodular thickening of the adrenal glands. Kidneys and ureters: Small right renal cyst. Other tiny hypodensity in the right kidney is too small to definitively characterize. No hydronephrosis or obstructing stone. Stomach and bowel: Moderate stool in the rectum may represent fecal impaction. PELVIS: Appendix: Normal appendix. No bowel obstruction or inflammation. Bladder: Mild prominence of the bladder wall is nonspecific. Please correlate with urinalysis to evaluate for cystitis. Reproductive: Calcified uterine fibroids. ABDOMEN and PELVIS: Intraperitoneal space: Unremarkable. No free air. No significant fluid collection. Bones joints: Old fracture deformities of the superior and inferior right pubic rami. Grade 1 anterolisthesis of L3 on L4. No dislocation. Soft tissues: Injection granulomas in the right gluteal soft tissues. Small fat-containing ventral hernias. Fat-containing right inguinal hernia. Vasculature: Atherosclerotic changes of the vasculature. No aortic aneurysm or dissection. Lymph nodes: Probable calcified lymph node between the portal vein and IVC. IMPRESSION: 1. Bibasilar atelectasis. Bronchial wall thickening in the right lung base could represent bronchitis. 2. Moderate stool in the rectum may represent fecal impaction. 3. Mild prominence of the bladder wall is nonspecific. Please correlate with urinalysis to evaluate for cystitis. 4. No abscess identified.
[2019-04-29 12:00] VITALS: BP 104/59
--- NOTE | 2019-04-29 14:14 | General Progress Note ---
Assessment/Plan Problem List: (1) Sepsis ICD Codes: A41.9 - Sepsis SNOMED: 41666291 (2) COPD (chronic obstructive pulmonary disease) ICD Codes: J44.9 - Chronic obstructive pulmonary disease, unspecified SNOMED: 95416107 (3) Episode of generalized weakness ICD Codes: R53.1 - Weakness SNOMED: 64989576 (4) Paroxysmal A-fib ICD Codes: I48.0 - Paroxysmal atrial fibrillation SNOMED: 089137419 (5) Hypotension ICD Codes: I95.9 - Hypotension, unspecified SNOMED: 67709165 (6) CHF (congestive heart failure) ICD Codes: I50.9 - Heart failure, unspecified SNOMED: 86506044 (7) Myocardial infarct ICD Codes: I21.3 - ST elevation (STEMI) myocardial infarction of unspecified site SNOMED: 72414918 (8) Cerebral vascular accident ICD Codes: I63.9 - Cerebral infarction, unspecified SNOMED: 003847187 (9) Urinary tract infection ICD Codes: N39.0 - Urinary tract infection, site not specified SNOMED: 25838481 (10) Respiratory acidosis ICD Codes: E87.2 - Acidosis SNOMED: 67270425 (11) Upper GI bleed ICD Codes: K92.2 - Gastrointestinal hemorrhage, unspecified SNOMED: 92435494 Assessment/Plan: improved, start diet, dc iv fluids, continue antibiotics, +esbl, ID to see, meropenam orders updated,,mobilize, heme+stool stop eliquis, recent egd gastritis and colon only small polyps, wbc still high check renal US--only cyst , CT no abscess, fecal impact but had bm today Subjective Constitutional: Reports: weakness HEENT: Reports: no symptoms Cardiovascular: Reports: no symptoms Respiratory: Reports: SOB with excertion Gastrointestinal/Abdominal: Reports: no symptoms Neurologic/Psychiatric: Reports: pre-existing deficit Endocrine: Reports: no symptoms Hematologic/Lymphatic: Reports: anemia Allergies: Coded Allergies: No Known Allergies (Unverified , 06/05/14) Objective Last 24 Hour Vital Signs Date Time Temp Pulse Resp B/P (MAP) Pulse Ox O2 Delivery O2 Flow Rate FiO2 04/29/19 12:00 98.2 63 18 104/59 (74) 99 04/29/19 09:44 98.5 04/29/19 09:00 Nasal Cannula 2.0 04/29/19 08:24 74 101/63 04/29/19 08:22 99 Nasal Cannula 2.0 28 04/29/19 08:00 98.5 74 18 101/63 (76) 99 04/29/19 04:00 96.9 78 20 120/62 (81) 98 04/29/19 00:00 98.6 74 20 102/55 (71) 98 04/28/19 21:00 72 103/55 04/28/19 21:00 Nasal Cannula 2.0 04/28/19 20:06 99.3 72 20 103/55 (71) 99 04/28/19 19:45 99 Nasal Cannula 2.0 28 04/28/19 16:00 97.0 68 20 98/53 (68) 99 Intake and Output 04/28/19 04/29/19 18:59 06:59 Intake Total 535 ml 2990 ml Output Total 800 ml 1200 ml Balance -265 ml 1790 ml Intake Oral 480 ml 480 ml IV Total 55 ml 2310 ml Other 200 ml Output Urine Total 800 ml 1200 ml # Voids 2 2 # Bowel Movements 1 Laboratory Tests 04/29/19 08:00: White Blood Count 16.7H, Red Blood Count 3.09L, Hemoglobin 9.9L, Hematocrit 33.2L, Mean Corpuscular Volume 108H, Mean Corpuscular Hemoglobin 32.1H, Mean Corpuscular Hemoglobin Concent 29.9L, Red Cell Distribution Width 17.7H, Platelet Count 617H, Mean Platelet Volume 4.4L, Neutrophils (%) (Auto) 74.8, Lymphocytes (%) (Auto) 13.8L, Monocytes (%) (Auto) 8.7, Eosinophils (%) (Auto) 1.9, Basophils (%) (Auto) 0.7, Sodium Level 143, Potassium Level 4.9, Chloride Level 102, Carbon Dioxide Level 39H, Anion Gap 2L, Blood Urea Nitrogen 16, Creatinine 0.9, Estimat Glomerular Filtration Rate , Glucose Level 88, Calcium Level 9.5, Total Bilirubin 0.3, Aspartate Amino Transf (AST/SGOT) 19, Alanine Aminotransferase (ALT/SGPT) 19, Alkaline Phosphatase 151H, Total Protein 7.7, Albumin 2.8L, Globulin 4.9, Albumin/Globulin Ratio 0.6L Height (Feet): 5 Height (Inches): 5.00 Weight (Pounds): 150 General Appearance: no apparent distress, alert EENT: normal ENT inspection Neck: normal alignment Cardiovascular: normal rate, regular rhythm Respiratory/Chest: lungs clear Abdomen: non tender Edema: no edema noted Arm (L), no edema noted Arm (R), no edema noted Leg (L), no edema noted Leg (R), no edema noted Pedal (L), no edema noted Pedal (R), no edema noted Generalized Neurologic: motor weakness Pastor Bowen MD Apr 29, 2019 14:14
[2019-04-29] MEDS ORDERED: Bisacodyl EC 5mg tab ORAL SCH (14:30)
[2019-04-29 16:00] VITALS: BP 110/63
[2019-04-29] MEDS ORDERED: NS 275ml ONE ×2 (16:19→17:00)
[2019-04-29] MEDS ORDERED: Tubing IV Secondary IV ONE ×2 (16:19→17:00)
--- NOTE | 2019-04-29 17:24 | Cardiology Report ---
APPROVED REPORT EKG Measurement Heart [id number] Atrial fibrillation with a competing junctional pacemaker with premature ventricular or aberrantly conducted complexes Marked ST abnormality, possible inferior subendocardial injury Abnormal ECG
--- NOTE | 2019-04-29 18:39 | Pulmonology Progress Note ---
Assessment/Plan Assessment/Plan 1. COPD with respiratory failure, resolved 2. Sick sinus syndrome. 3. Septic shock due to UTI, resolved 4. CHF 5. Hypertension. 6. Hyperlipidemia. 7. CKD. 8. GERD. 9. History of prior GI bleed. CXR, ABG F/U AML no evident pulmonary process to explain WBC cont rx Subjective Constitutional: Reports: no symptoms HEENT: Repors: no symptoms Respiratory: Reports: no symptoms Cardiovascular: Reports: no symptoms Gastrointestinal/Abdominal: Reports: no symptoms Allergies: Coded Allergies: No Known Allergies (Unverified , 06/05/14) Subjective doing well on o2 mild nausea shortness of breath resolved no cp or fever tolerating po Objective Last 24 Hour Vital Signs Date Time Temp Pulse Resp B/P (MAP) Pulse Ox O2 Delivery O2 Flow Rate FiO2 04/29/19 16:00 98.4 66 18 110/63 (79) 98 04/29/19 12:00 98.2 63 18 104/59 (74) 99 04/29/19 09:44 98.5 04/29/19 09:00 Nasal Cannula 2.0 04/29/19 08:24 74 101/63 04/29/19 08:22 99 Nasal Cannula 2.0 28 04/29/19 08:00 98.5 74 18 101/63 (76) 99 04/29/19 04:00 96.9 78 20 120/62 (81) 98 04/29/19 00:00 98.6 74 20 102/55 (71) 98 04/28/19 21:00 72 103/55 04/28/19 21:00 Nasal Cannula 2.0 04/28/19 20:06 99.3 72 20 103/55 (71) 99 04/28/19 19:45 99 Nasal Cannula 2.0 28 Intake and Output 04/28/19 04/29/19 19:00 07:00 Intake Total 535 ml 2990 ml Output Total 800 ml 1200 ml Balance -265 ml 1790 ml Intake Oral 480 ml 480 ml IV Total 55 ml 2310 ml Other 200 ml Output Urine Total 800 ml 1200 ml # Voids 2 2 # Bowel Movements 1 General Appearance: WD/WN Respiratory/Chest: lungs clear, normal breath sounds Cardiovascular: normal rate, regular rhythm Abdomen: soft, non tender, no organomegaly Extremities: no clubbing Skin: no lesions Neurologic/Psychiatric: alert, oriented x 3 Laboratory Tests 04/29/19 08:00: White Blood Count 16.7H, Red Blood Count 3.09L, Hemoglobin 9.9L, Hematocrit 33.2L, Mean Corpuscular Volume 108H, Mean Corpuscular Hemoglobin 32.1H, Mean Corpuscular Hemoglobin Concent 29.9L, Red Cell Distribution Width 17.7H, Platelet Count 617H, Mean Platelet Volume 4.4L, Neutrophils (%) (Auto) 74.8, Lymphocytes (%) (Auto) 13.8L, Monocytes (%) (Auto) 8.7, Eosinophils (%) (Auto) 1.9, Basophils (%) (Auto) 0.7, Sodium Level 143, Potassium Level 4.9, Chloride Level 102, Carbon Dioxide Level 39H, Anion Gap 2L, Blood Urea Nitrogen 16, Creatinine 0.9, Estimat Glomerular Filtration Rate , Glucose Level 88, Calcium Level 9.5, Total Bilirubin 0.3, Aspartate Amino Transf (AST/SGOT) 19, Alanine Aminotransferase (ALT/SGPT) 19, Alkaline Phosphatase 151H, Total Protein 7.7, Albumin 2.8L, Globulin 4.9, Albumin/Globulin Ratio 0.6L Current Medications Medications (Trade) Dose Ordered Sig/Kate Route PRN Reason Start Time Stop Time Status Last Admin Dose Admin Acetaminophen (Tylenol) 1,000 mg Q8H PRN ORAL For Pain 04/27/19 22:00 05/20/19 21:47 04/29/19 17:52 Artificial Tears (Akwa-Tears) 1 drop DAILY BOTH EYES 04/28/19 09:00 05/20/19 08:59 04/29/19 08:23 Atorvastatin Calcium (Lipitor) 10 mg BEDTIME ORAL 04/27/19 21:00 05/19/19 20:59 04/28/19 20:29 Beclomethasone Dipropionate (Qvar 40 Inhaler) 2 puff TWICE A DAY INH 04/28/19 09:00 05/19/19 20:59 04/29/19 08:12 Dextrose (Dextrose 50%) 25 ml Q30M PRN IV Hypoglycemia 04/27/19 20:45 05/19/19 15:44 Dextrose (Dextrose 50%) 50 ml Q30M PRN IV Hypoglycemia 04/27/19 20:45 05/19/19 15:44 Docusate Sodium (Colace) 100 mg TWICE A DAY ORAL 04/28/19 09:00 05/20/19 08:59 04/29/19 17:46 Escitalopram Oxalate (Lexapro) 5 mg DAILY ORAL 04/28/19 09:00 05/20/19 08:59 04/29/19 08:23 Furosemide (Lasix) 40 mg DAILY ORAL 04/30/19 09:00 05/30/19 08:59 Magnesium Hydroxide (Mom) 30 ml Q8H PRN ORAL Constipation 04/27/19 22:00 05/20/19 21:48 Meropenem 1 gm/ Sodium Chloride 55 ml @ 110 mls/hr Q12HR IVPB 04/28/19 21:00 05/01/19 20:59 04/29/19 08:25 Metoprolol Tartrate (Lopressor) 25 mg Q12HR ORAL 04/27/19 21:00 05/19/19 20:59 04/29/19 08:24 Pantoprazole (Protonix) 40 mg DAILY ORAL 04/28/19 09:00 05/20/19 08:59 04/29/19 08:24 Polyethylene Glycol (Miralax) 17 gm Q8H PRN ORAL Constipation 04/27/19 22:00 05/20/19 21:48 Potassium Chloride (K-Dur) 40 meq TWICE A DAY ORAL 04/28/19 09:00 05/21/19 08:59 04/29/19 17:46 Sennosides (Senokot) 8.6 mg DAILY ORAL 04/28/19 09:00 05/20/19 08:59 04/29/19 08:23 Keren Bernal DO Apr 29, 2019 18:39
--- NOTE | 2019-04-29 19:20 | NUR ---
HAND-OFF: Report given to GLEN HOUSE RN.
--- NOTE | 2019-04-29 19:23 | NUR ---
HAND-OFF: Report given to CHERYU RN.
--- NOTE | 2019-04-29 19:48 | NUR ---
NURSE NOTES: Received report from STEVEN Hussein. Patient awake and verbally responsive to let her needs known. Breathing unlabored on a 2L O2 via NC. Denies discomfort or pain at this time. IV site noted on LFA and RWrist intact. Bed placed at the lowest with alarm, brake, and siderails up for safety. Call light placed within reach and encourage use. Will continue to monitor and provide care as ordered.
[2019-04-29 20:00] VITALS: BP 104/63
[2019-04-30] VITALS: BP 115/70
--- NOTE | 2019-04-30 02:45 | Progress Note ---
DATE: 04/29/2019 CARDIOLOGY PROGRESS NOTE SUBJECTIVE: The patient is appearing more comfortable without respiratory distress or congestion. Monitored rhythm, sinus. OBJECTIVE: VITAL SIGNS: Blood pressure 110/63, pulse 66, respirations 18, and afebrile. LUNGS: Good breath sounds. No wheezing. HEART: Regular rhythm and rate. Normal S1, S2 with a 1/6 systolic apical murmur. ABDOMEN: Soft. EXTREMITIES: There is no edema. LABORATORY DATA: Cultures remained negative. White count 16.7, hemoglobin 9.9. Sodium 143, potassium 4.9, bicarb 39, BUN 16, and creatinine 0.9. IMPRESSION: 1. Contraction alkalosis. 2. Paroxysmal atrial fibrillation. 3. Hypertensive heart disease. 4. Status post urinary tract infection with sepsis and shock, persistent. 5. Leukocytosis with no obvious source of infection. PLAN: 1. Infectious Disease evaluation reviewed. 2. Antimicrobials per Infectious Disease senior environmental consultant. 3. Diuretics being held today, reassess tomorrow for resumption at lower dose. 4. Maintain cardioembolic prophylaxis with apixaban. 5. Continue anti-failure and antiarrhythmic regimen, otherwise without change. Jan Moreno M.D. DR: MOMO JOB#: [id number] CC:
[2019-04-30 04:00] VITALS: BP 114/65
--- NOTE | 2019-04-30 07:43 | NUR ---
HAND-OFF: Report given to STEVEN Oconnor.
--- NOTE | 2019-04-30 07:54 | NUR ---
NURSE NOTES: Pt awake, A/O x 4, calm and cooperative. VS stable. complained of all over the body pain, 4/10, pts on 2L O2 via NC, sat 94-95%. no cough, no SOB noted. tolerating diet well. pts on Abx. call light within reach. bed alarm on, bed in low position. fall precaution maintained. will continue to monitor.
[2019-04-30 08:00] VITALS: BP 117/72
[2019-04-30] MEDS: Qvar 40mcg Inhaler 6.8 gm INH SCH ×2 (08:24→20:24)
[2019-04-30] MEDS ORDERED: Furosemide 40mg tab ORAL SCH (09:00)
[2019-04-30] MEDS: Sennosides 8.6mg tab ORAL SCH (09:11)
[2019-04-30] MEDS: Docusate 100mg cap ORAL SCH ×2 (09:11→17:14)
[2019-04-30] MEDS: Metoprolol 25mg tab ORAL SCH ×2 (09:13→20:36)
[2019-04-30] MEDS: Meropenem 1 GM in NS 55 ML IVPB SCH ×2 (09:21→20:35)
[2019-04-30] MEDS: Acetaminophen 500mg (ES) tab ORAL PRN (09:30)
[2019-04-30 12:00] VITALS: BP 97/66
--- NOTE | 2019-04-30 12:11 | Cardiology Report ---
APPROVED REPORT EXAM: Two-dimensional and M-mode echocardiogram with Doppler and color Doppler. INDICATION Atrial Fibrillation M-Mode DIMENSIONS IVSd0.9 (0.7-1.1cm)Left Atrium (MM)3.3 (1.6-4.0cm) LVDd3.9 (3.5-5.6cm)Aortic Root3.1 (2.0-3.7cm) PWd1.0 (0.7-1.1cm)Aortic Cusp Exc.1.8 (1.5-2.0cm) LVDs2.4 (2.5-4.0cm) PWs1.3 cm Normal left ventricular chamber size, systolic function and wall motion. Left ventricular ejection fraction estimated to be 60-65 %. No evidence of pericardial effusion. All other cardiac chamber sizes are within normal limits. Focal aortic valve sclerosis with adequate cusp excursion. Thickened mitral valve leaflets with normal excursion. Mitral annulus and aortic root calcification. Pulmonic valve not well visualized. Normal tricuspid valve structure. IVC normal size without physiologic collapse pressure. A color flow and spectral Doppler study was performed and revealed: Mild mitral regurgitation. Mitral diastolic velocities suggest mild left ventricular diastolic dysfunction (Grade I). Mild tricuspid regurgitation. Tricuspid systolic velocities suggests peak right ventricular systolic pressure of 50 mmHg consistent with moderate pulmonary hypertension. Trace pulmonic regurgitation present.
--- NOTE | 2019-04-30 13:41 | General Progress Note ---
Assessment/Plan Problem List: (1) Sepsis ICD Codes: A41.9 - Sepsis SNOMED: 07952643 (2) COPD (chronic obstructive pulmonary disease) ICD Codes: J44.9 - Chronic obstructive pulmonary disease, unspecified SNOMED: 45722345 (3) Episode of generalized weakness ICD Codes: R53.1 - Weakness SNOMED: 50297134 (4) Paroxysmal A-fib ICD Codes: I48.0 - Paroxysmal atrial fibrillation SNOMED: 186362209 (5) Hypotension ICD Codes: I95.9 - Hypotension, unspecified SNOMED: 73060066 (6) CHF (congestive heart failure) ICD Codes: I50.9 - Heart failure, unspecified SNOMED: 42507206 (7) Myocardial infarct ICD Codes: I21.3 - ST elevation (STEMI) myocardial infarction of unspecified site SNOMED: 30724145 (8) Cerebral vascular accident ICD Codes: I63.9 - Cerebral infarction, unspecified SNOMED: 950414082 (9) Urinary tract infection ICD Codes: N39.0 - Urinary tract infection, site not specified SNOMED: 56276638 (10) Respiratory acidosis ICD Codes: E87.2 - Acidosis SNOMED: 01890708 (11) Upper GI bleed ICD Codes: K92.2 - Gastrointestinal hemorrhage, unspecified SNOMED: 30324192 Assessment/Plan: improved, start diet, dc iv fluids, continue antibiotics, +esbl, ID to see, meropenam orders updated,,mobilize, heme+stool stop eliquis, recent egd gastritis and colon only small polyps, wbc still high check renal US--only cyst , CT no abscess, fecal impact but had bm Subjective Constitutional: Reports: weakness HEENT: Reports: no symptoms Cardiovascular: Reports: no symptoms Respiratory: Reports: SOB with excertion Gastrointestinal/Abdominal: Reports: no symptoms Genitourinary: Reports: incontinence Neurologic/Psychiatric: Reports: pre-existing deficit Endocrine: Reports: no symptoms Hematologic/Lymphatic: Reports: anemia Allergies: Coded Allergies: No Known Allergies (Unverified , 06/05/14) Objective Last 24 Hour Vital Signs Date Time Temp Pulse Resp B/P (MAP) Pulse Ox O2 Delivery O2 Flow Rate FiO2 04/30/19 12:00 98.1 65 20 97/66 (76) 93 04/30/19 10:00 98.2 04/30/19 09:13 88 117/72 04/30/19 09:00 Nasal Cannula 2.0 04/30/19 08:56 99 Nasal Cannula 2.0 28 04/30/19 08:00 98.2 88 20 117/72 (87) 97 04/30/19 04:00 98.8 85 19 114/65 (81) 97 04/30/19 00:00 98.9 78 20 115/70 (85) 97 04/29/19 21:00 Nasal Cannula 2.0 04/29/19 20:57 76 103/56 04/29/19 20:00 99.1 74 20 104/63 (77) 97 04/29/19 19:28 99 Nasal Cannula 2.0 28 04/29/19 19:28 79 18 99 Nasal Cannula 2.0 28 04/29/19 16:00 98.4 66 18 110/63 (79) 98 Intake and Output 04/29/19 04/30/19 18:59 06:59 Intake Total 950 ml 3405 ml Balance 950 ml 3405 ml Intake Oral 840 ml 840 ml IV Total 110 ml 2365 ml Other 200 ml # Voids 4 2 # Bowel Movements 2 Height (Feet): 5 Height (Inches): 5.00 Weight (Pounds): 150 General Appearance: no apparent distress, alert EENT: normal ENT inspection Neck: normal alignment Cardiovascular: normal rate Respiratory/Chest: lungs clear Abdomen: non tender, soft Edema: no edema noted Arm (L), no edema noted Arm (R), no edema noted Leg (L), no edema noted Leg (R), no edema noted Pedal (L), no edema noted Pedal (R), no edema noted Generalized Neurologic: motor weakness Pastor Bowen MD Apr 30, 2019 13:41
--- NOTE | 2019-04-30 15:01 | Infectious Diseases Prog Note ---
Assessment/Plan Assessment/Plan ASSESSMENT AND PLAN: 1. esbl e.coli uti/pyelonephritis, sepsis, ? pna, leukocytosis, fevers, elevated lactic acid - meropenem - day # 9/10 - CT without abscess - monitor labs and chest x-ray - clinically otherwise stable, c.diff. negative 2. Hypertension. 3. Diabetes. 4. Dyslipidemia. 5. Blood sugar and blood pressure treatment for diabetes and hypertension per primary consultants. 6. Congestive heart failure. 7. Valvular heart disease. 8. Anemia. 9. Gastroesophageal reflux disease. 10. Chronic obstructive pulmonary disease. 11. Congestive heart failure. 12. Hypertensive heart disease. 13. Coronary arthrosclerosis. 14. Cerebrovascular accident with right hemiparesis. 15. Chronic kidney disease. 16. No known drug allergies. 17. Social history negative. 18. Family history noncontributory. 19. MAR is noted. 20. Case discussed with RN. 21. Continue treatment per primary consultants. 22. Notes and records were noted. 23. Orders were entered. 24. Past medical history is noted. Subjective Constitutional: Reports: fatigue; Denies: fever HEENT: Denies: congestion Respiratory: Denies: shortness of breath Cardiovascular: Denies: chest pain Gastrointestinal/Abdominal: Reports: other - no abdominal pain ; Denies: nausea , diarrhea Neurologic: Denies: headache Psychiatric: Denies: depression Skin: Denies: rash Hematologic: Denies: bleeding Musculoskeletal: Denies: pain Allergies: Coded Allergies: No Known Allergies (Unverified , 06/05/14) Objective Vital Signs Last 24 Hour Vital Signs Date Time Temp Pulse Resp B/P (MAP) Pulse Ox O2 Delivery O2 Flow Rate FiO2 04/30/19 12:00 98.1 65 20 97/66 (76) 93 04/30/19 10:00 98.2 04/30/19 09:13 88 117/72 04/30/19 09:00 Nasal Cannula 2.0 04/30/19 08:56 99 Nasal Cannula 2.0 28 04/30/19 08:00 98.2 88 20 117/72 (87) 97 04/30/19 04:00 98.8 85 19 114/65 (81) 97 04/30/19 00:00 98.9 78 20 115/70 (85) 97 04/29/19 21:00 Nasal Cannula 2.0 04/29/19 20:57 76 103/56 04/29/19 20:00 99.1 74 20 104/63 (77) 97 04/29/19 19:28 99 Nasal Cannula 2.0 28 04/29/19 19:28 79 18 99 Nasal Cannula 2.0 28 04/29/19 16:00 98.4 66 18 110/63 (79) 98 Height (Feet): 5 Height (Inches): 5.00 Weight (Pounds): 150 General Appearance: no acute distress HEENT: normocephalic, atraumatic, anicteric, mucous membranes moist Respiratory/Chest: lungs clear, normal breath sounds, no respiratory distress, no accessory muscle use Cardiovascular: normal rate, regular rhythm, no gallop/murmur, no JVD Abdomen: normal bowel sounds, soft, non tender, no organomegaly, non distended Genitourinary: other - no hicks Extremities: no cyanosis Skin: no rash Neurologic/Psychiatric: fermenter II-XII grossly normal, alert, responsive Lymphatic: no neck adenopathy Musculoskeletal: no effusion Objective Chest x-ray - 04/25/19 - Comparison: 04/24/2019 Findings: Inspiration is less optimal. Right perihilar atelectasis or scarring is unchanged. Reticular interstitial opacities in the upper lungs are slightly more prominent than on the prior exam. The heart size is upper limits normal. The aorta is tortuous ectatic and calcified. There are degenerative changes of both shoulders Impression: Increasingly prominent bilateral upper lung reticular interstitial opacities. Suspected artifactual due to lower lung volumes resulting in crowding of the bronchovascular markings, but developing infiltrates also possible. Recommend follow-up radiographs Other stable findings as described CT abdomen and pelvis: IMPRESSION: 1. Bibasilar atelectasis. Bronchial wall thickening in the right lung base could represent bronchitis. 2. Moderate stool in the rectum may represent fecal impaction. 3. Mild prominence of the bladder wall is nonspecific. Please correlate with urinalysis to evaluate for cystitis. 4. No abscess identified. Microbiology Date/Time Source Procedure Growth Status 04/24/19 15:15 Blood Blood Culture - Final NO GROWTH AFTER 5 DAYS Complete 04/20/19 14:00 Sputum Gram Stain - Final Complete 04/20/19 14:00 Sputum Sputum Culture - Final NORMAL UPPER RESPIRATORY ALEXANDREA AT 48 ... Complete 04/24/19 23:25 Stool Clostridium difficile Toxin Assay - Final Complete 04/25/19 07:00 Urine,Clean Catch Urine Culture - Final NO GROWTH AFTER 48 HOURS Complete 04/19/19 11:30 Rectum VRE Culture - Final NO VANCOMYCIN RESISTANT ENTEROCOCCUS ... Complete Labs Test 04/28/19 09:10 04/29/19 08:00 Arterial Blood pH 7.371 (7.350-7.450) Arterial Blood Partial Pressure CO2 62.4 mmHg (35.0-45.0) Arterial Blood Partial Pressure O2 88.5 mmHg (75.0-100.0) Arterial Blood HCO3 35.3 mmol/L (22.0-26.0) Arterial Blood Oxygen Saturation 96.2 % (95-100) Arterial Blood Base Excess 8.6 (-2-2) Hal Test Positive White Blood Count 16.7 K/UL (4.8-10.8) Red Blood Count 3.09 M/UL (4.20-5.40) Hemoglobin 9.9 G/DL (12.0-16.0) Hematocrit 33.2 % (37.0-47.0) Mean Corpuscular Volume 108 FL (80-99) Mean Corpuscular Hemoglobin 32.1 PG (27.0-31.0) Mean Corpuscular Hemoglobin Concent 29.9 G/DL (32.0-36.0) Red Cell Distribution Width 17.7 % (11.6-14.8) Platelet Count 617 K/UL (150-450) Mean Platelet Volume 4.4 FL (6.5-10.1) Neutrophils (%) (Auto) 74.8 % (45.0-75.0) Lymphocytes (%) (Auto) 13.8 % (20.0-45.0) Monocytes (%) (Auto) 8.7 % (1.0-10.0) Eosinophils (%) (Auto) 1.9 % (0.0-3.0) Basophils (%) (Auto) 0.7 % (0.0-2.0) Sodium Level 143 MMOL/L (136-145) Potassium Level 4.9 MMOL/L (3.5-5.1) Chloride Level 102 MMOL/L (98-107) Carbon Dioxide Level 39 MMOL/L (21-32) Anion Gap 2 mmol/L (5-15) Blood Urea Nitrogen 16 mg/dL (7-18) Creatinine 0.9 MG/DL (0.55-1.30) Estimat Glomerular Filtration Rate mL/min (>60) Glucose Level 88 MG/DL (74-106) Calcium Level 9.5 MG/DL (8.5-10.1) Total Bilirubin 0.3 MG/DL (0.2-1.0) Aspartate Amino Transf (AST/SGOT) 19 U/L (15-37) Alanine Aminotransferase (ALT/SGPT) 19 U/L (12-78) Alkaline Phosphatase 151 U/L (46-116) Total Protein 7.7 G/DL (6.4-8.2) Albumin 2.8 G/DL (3.4-5.0) Globulin 4.9 g/dL Albumin/Globulin Ratio 0.6 (1.0-2.7) Current Medications Medications (Trade) Dose Ordered Sig/Kate Route PRN Reason Start Time Stop Time Status Last Admin Dose Admin Acetaminophen (Tylenol) 1,000 mg Q8H PRN ORAL For Pain 04/27/19 22:00 05/20/19 21:47 04/30/19 09:30 Artificial Tears (Akwa-Tears) 1 drop DAILY BOTH EYES 04/28/19 09:00 05/20/19 08:59 04/30/19 09:14 Atorvastatin Calcium (Lipitor) 10 mg BEDTIME ORAL 04/27/19 21:00 05/19/19 20:59 04/29/19 20:57 Beclomethasone Dipropionate (Qvar 40 Inhaler) 2 puff TWICE A DAY INH 04/28/19 09:00 05/19/19 20:59 04/30/19 08:24 Dextrose (Dextrose 50%) 25 ml Q30M PRN IV Hypoglycemia 04/27/19 20:45 05/19/19 15:44 Dextrose (Dextrose 50%) 50 ml Q30M PRN IV Hypoglycemia 04/27/19 20:45 05/19/19 15:44 Docusate Sodium (Colace) 100 mg TWICE A DAY ORAL 04/28/19 09:00 05/20/19 08:59 04/30/19 09:11 Escitalopram Oxalate (Lexapro) 5 mg DAILY ORAL 04/28/19 09:00 05/20/19 08:59 04/30/19 09:13 Furosemide (Lasix) 40 mg DAILY ORAL 04/30/19 09:00 05/30/19 08:59 04/30/19 09:12 Magnesium Hydroxide (Mom) 30 ml Q8H PRN ORAL Constipation 04/27/19 22:00 05/20/19 21:48 Meropenem 1 gm/ Sodium Chloride 55 ml @ 110 mls/hr Q12HR IVPB 04/28/19 21:00 05/01/19 22:00 04/30/19 09:21 Metoprolol Tartrate (Lopressor) 25 mg Q12HR ORAL 04/27/19 21:00 05/19/19 20:59 04/30/19 09:13 Pantoprazole (Protonix) 40 mg DAILY ORAL 04/28/19 09:00 05/20/19 08:59 04/30/19 09:13 Polyethylene Glycol (Miralax) 17 gm Q8H PRN ORAL Constipation 04/27/19 22:00 05/20/19 21:48 Potassium Chloride (K-Dur) 40 meq TWICE A DAY ORAL 04/28/19 09:00 05/21/19 08:59 04/30/19 09:12 Sennosides (Senokot) 8.6 mg DAILY ORAL 04/28/19 09:00 05/20/19 08:59 04/30/19 09:11 Jori Anaya MD Apr 30, 2019 15:00
[2019-04-30 16:00] VITALS: BP 101/53
--- NOTE | 2019-04-30 16:44 | Pulmonology Progress Note ---
Assessment/Plan Assessment/Plan 1. COPD with respiratory failure, resolved 2. Sick sinus syndrome. 3. Septic shock due to UTI, resolved 4. CHF 5. Hypertension. 6. Hyperlipidemia. 7. CKD. 8. GERD. 9. History of prior GI bleed. ct wtih stool impaction, suppositories ordered F/U AML cont rx dc planning to rehab when cleared Subjective Constitutional: Reports: no symptoms HEENT: Repors: no symptoms Respiratory: Reports: no symptoms Allergies: Coded Allergies: No Known Allergies (Unverified , 06/05/14) Subjective doing well on o2 no nv today shortness of breath resolved no cp or fever tolerating po Objective Last 24 Hour Vital Signs Date Time Temp Pulse Resp B/P (MAP) Pulse Ox O2 Delivery O2 Flow Rate FiO2 04/30/19 15:55 Nasal Cannula 2.0 04/30/19 12:00 98.1 65 20 97/66 (76) 93 04/30/19 10:00 98.2 04/30/19 09:13 88 117/72 04/30/19 09:00 Nasal Cannula 2.0 04/30/19 08:56 99 Nasal Cannula 2.0 28 04/30/19 08:00 98.2 88 20 117/72 (87) 97 04/30/19 04:00 98.8 85 19 114/65 (81) 97 04/30/19 00:00 98.9 78 20 115/70 (85) 97 04/29/19 21:00 Nasal Cannula 2.0 04/29/19 20:57 76 103/56 04/29/19 20:00 99.1 74 20 104/63 (77) 97 04/29/19 19:28 99 Nasal Cannula 2.0 28 04/29/19 19:28 79 18 99 Nasal Cannula 2.0 28 Intake and Output 04/29/19 04/30/19 18:59 06:59 Intake Total 950 ml 3405 ml Balance 950 ml 3405 ml Intake Oral 840 ml 840 ml IV Total 110 ml 2365 ml Other 200 ml # Voids 4 2 # Bowel Movements 2 General Appearance: WD/WN Respiratory/Chest: lungs clear, normal breath sounds Cardiovascular: normal rate, regular rhythm Abdomen: soft, non tender, no organomegaly Neurologic/Psychiatric: alert, oriented x 3 Current Medications Medications (Trade) Dose Ordered Sig/Kate Route PRN Reason Start Time Stop Time Status Last Admin Dose Admin Acetaminophen (Tylenol) 1,000 mg Q8H PRN ORAL For Pain 04/27/19 22:00 05/20/19 21:47 04/30/19 09:30 Artificial Tears (Akwa-Tears) 1 drop DAILY BOTH EYES 04/28/19 09:00 05/20/19 08:59 04/30/19 09:14 Atorvastatin Calcium (Lipitor) 10 mg BEDTIME ORAL 04/27/19 21:00 05/19/19 20:59 04/29/19 20:57 Beclomethasone Dipropionate (Qvar 40 Inhaler) 2 puff TWICE A DAY INH 04/28/19 09:00 05/19/19 20:59 04/30/19 08:24 Dextrose (Dextrose 50%) 25 ml Q30M PRN IV Hypoglycemia 04/27/19 20:45 05/19/19 15:44 Dextrose (Dextrose 50%) 50 ml Q30M PRN IV Hypoglycemia 04/27/19 20:45 05/19/19 15:44 Docusate Sodium (Colace) 100 mg TWICE A DAY ORAL 04/28/19 09:00 05/20/19 08:59 04/30/19 09:11 Escitalopram Oxalate (Lexapro) 5 mg DAILY ORAL 04/28/19 09:00 05/20/19 08:59 04/30/19 09:13 Furosemide (Lasix) 40 mg DAILY ORAL 04/30/19 09:00 05/30/19 08:59 04/30/19 09:12 Magnesium Hydroxide (Mom) 30 ml Q8H PRN ORAL Constipation 04/27/19 22:00 05/20/19 21:48 Meropenem 1 gm/ Sodium Chloride 55 ml @ 110 mls/hr Q12HR IVPB 04/28/19 21:00 05/01/19 22:00 04/30/19 09:21 Metoprolol Tartrate (Lopressor) 25 mg Q12HR ORAL 04/27/19 21:00 05/19/19 20:59 04/30/19 09:13 Pantoprazole (Protonix) 40 mg DAILY ORAL 04/28/19 09:00 05/20/19 08:59 04/30/19 09:13 Polyethylene Glycol (Miralax) 17 gm Q8H PRN ORAL Constipation 04/27/19 22:00 05/20/19 21:48 Potassium Chloride (K-Dur) 40 meq TWICE A DAY ORAL 04/28/19 09:00 05/21/19 08:59 04/30/19 09:12 Sennosides (Senokot) 8.6 mg DAILY ORAL 04/28/19 09:00 05/20/19 08:59 04/30/19 09:11 Keren Bernal DO Apr 30, 2019 16:44
[2019-04-30] MEDS: Fleet's Enema 133ml RECTAL SCH (16:45)
--- NOTE | 2019-04-30 19:35 | NUR ---
NURSE NOTES: Received a report from STEVEN Oconnor. Patient a/a/a x 4, breathing unlabored without distress on 2L O2 via NC. Patient denies pain at this time. IV site noted on the right wrist intact and patent. Bed placed at the lowest with alarm, brake, side rails up for safety. Call light placed within reach. Will continue to monitor and provide care as ordered.
[2019-04-30 20:00] VITALS: BP 107/63
--- NOTE | 2019-04-30 22:35 | NUR ---
NURSE NOTES: Placed new 24 g IV on patient's right hand due to previous IV site tenderness and leaking. Patient explained procedure prior and during the procedure. Patient tolerated the procedure well. Previous IV removed.
[2019-05-01] VITALS: BP 121/72
--- NOTE | 2019-05-01 | Progress Note ---
DATE: 04/30/2019 CARDIOLOGY PROGRESS NOTE SUBJECTIVE: The patient has no complaints of shortness of breath. No chest pain. Monitored rhythm remains sinus. PHYSICAL EXAMINATION: VITAL SIGNS: Episodes of low blood pressure persists 97/66, now 117/72, heart rate 88, respiratory rate 20, afebrile. LUNGS: Diminished breath sounds. No wheezing or rales. HEART: Regular rhythm, rate. Normal S1, S2 with a fourth heart sound. ABDOMEN: Soft, nontender. EXTREMITIES: There is no edema. IMAGING: Reviewed. IMPRESSION: 1. Leukocytosis, maybe due to fecal impaction. 2. No signs of acute pulmonary or urologic infection. 3. COPD with no acute bronchospasm. 4. Sepsis with shock, recovered. 5. Hypotension, improved, but still has episodes of low blood pressure. 6. Paroxysmal atrial fibrillation, now in sinus rhythm. 7. Contraction alkalosis. PLAN: 1. Hold diuretics for low blood pressure. 2. Recheck laboratory studies. 3. Hold parameters for anti-failure and antihypertensive. 4. Respiratory hygiene. 5. Bowel regimen. Jan Moreno M.D. DR: SAVANNAH JOB#: [id number] CC:
[2019-05-01 04:00] VITALS: BP 113/70
[2019-05-01 06:59] LABS: BASOPHILS % (AUTO) 0.8 % (0.0-2.0); EOSINOPHILS % (AUTO) 2.3 % (0.0-3.0); HEMOGLOBIN 9.9 G/DL (12.0-16.0); LYMPHOCYTES % (AUTO) 16.1 % (20.0-45.0); MEAN CORPUSCULAR VOLUME 106 FL (80-99); MONOCYTES % (AUTO) 6.8 % (1.0-10.0); PLATELET COUNT 604 K/UL (150-450); RED BLOOD COUNT 3.11 M/UL (4.20-5.40); RED CELL DISTRIBUTION WIDTH 17.1 % (11.6-14.8); WHITE BLOOD COUNT 15.4 K/UL (4.8-10.8)
[2019-05-01 07:03] LABS: ANION GAP 2 mmol/L (5-15); BLOOD UREA NITROGEN 11 mg/dL (7-18); CALCIUM 9.6 MG/DL (8.5-10.1); CARBON DIOXIDE 35 MMOL/L (21-32); CHLORIDE 104 MMOL/L (98-107); CREATININE 0.9 MG/DL (0.55-1.30); POTASSIUM 4.9 MMOL/L (3.5-5.1); SODIUM 141 MMOL/L (136-145)
--- NOTE | 2019-05-01 07:46 | NUR ---
NURSE NOTES: pt awake, A/O x 3, forgetful. Denies pain at this time. no SOB noted, pts on 2L O2 via NC, sat 93-94%. no cough. bed in low position, bed alarm on, call light within reach, walker at bedside. fall precaution maintained. will continue to monitor.
--- NOTE | 2019-05-01 07:47 | NUR ---
HAND-OFF: Report given to STEVEN Oconnor.
[2019-05-01 08:27] VITALS: BP 104/60
[2019-05-01] MEDS: Acetaminophen 500mg (ES) tab ORAL PRN ×2 (08:31→22:25)
[2019-05-01] MEDS: Sennosides 8.6mg tab ORAL SCH (08:33)
[2019-05-01] MEDS: Fleet's Enema 133ml RECTAL SCH (08:33)
[2019-05-01] MEDS: Docusate 100mg cap ORAL SCH ×2 (08:36→17:14)
[2019-05-01] MEDS: Metoprolol 25mg tab ORAL SCH ×2 (08:37→21:00)
[2019-05-01] MEDS ORDERED: Furosemide 40mg tab ORAL SCH (09:00)
[2019-05-01] MEDS: Meropenem 1 GM in NS 55 ML IVPB SCH ×2 (09:00→21:00)
[2019-05-01] MEDS: Qvar 40mcg Inhaler 6.8 gm INH SCH ×2 (10:00→19:59)
[2019-05-01 12:00] VITALS: BP 97/59
--- NOTE | 2019-05-01 12:04 | Pulmonology Progress Note ---
Assessment/Plan Assessment/Plan 1. COPD with respiratory failure, resolved 2. Sick sinus syndrome. 3. Septic shock due to UTI, resolved 4. CHF 5. Hypertension. 6. Hyperlipidemia. 7. CKD. 8. GERD. 9. History of prior GI bleed. CT chest Abx per ID Aspiration precautions DVT Px Subjective Allergies: Coded Allergies: No Known Allergies (Unverified , 06/05/14) Subjective AFVSS O2 needs stable No cough no SOB no FC Objective Last 24 Hour Vital Signs Date Time Temp Pulse Resp B/P (MAP) Pulse Ox O2 Delivery O2 Flow Rate FiO2 05/01/19 10:00 98 Nasal Cannula 2.0 28 05/01/19 09:01 98.1 05/01/19 09:00 Nasal Cannula 2.0 05/01/19 08:37 83 104/60 05/01/19 08:27 98.1 83 20 104/60 (75) 98 05/01/19 04:00 97.9 83 20 113/70 (84) 96 05/01/19 00:00 97.9 70 19 121/72 (88) 96 04/30/19 21:00 Nasal Cannula 2.0 04/30/19 20:36 76 108/66 04/30/19 20:25 98 Nasal Cannula 2.0 28 04/30/19 20:00 98.2 74 19 107/63 (78) 95 04/30/19 16:00 97.7 70 18 101/53 (69) 98 04/30/19 15:55 Nasal Cannula 2.0 Intake and Output 04/30/19 05/01/19 19:00 07:00 Intake Total 590 ml 3045 ml Balance 590 ml 3045 ml Intake Oral 480 ml 480 ml IV Total 110 ml 2365 ml Other 200 ml # Voids 2 # Bowel Movements 5 2 General Appearance: WD/WN, no acute distress HEENT: normocephalic, atraumatic, anicteric, mucous membranes moist Respiratory/Chest: chest wall non-tender, lungs clear, normal breath sounds, no respiratory distress, no accessory muscle use Cardiovascular: normal peripheral pulses, normal rate, regular rhythm Abdomen: normal bowel sounds, soft, non tender, no organomegaly, non distended , no mass Extremities: no cyanosis, no clubbing, no edema Laboratory Tests 05/01/19 05:10: White Blood Count 15.4H, Red Blood Count 3.11L, Hemoglobin 9.9L, Hematocrit 33.0L, Mean Corpuscular Volume 106H, Mean Corpuscular Hemoglobin 31.7H, Mean Corpuscular Hemoglobin Concent 29.9L, Red Cell Distribution Width 17.1H, Platelet Count 604H, Mean Platelet Volume 4.3L, Neutrophils (%) (Auto) 74.0, Lymphocytes (%) (Auto) 16.1L, Monocytes (%) (Auto) 6.8, Eosinophils (%) (Auto) 2.3, Basophils (%) (Auto) 0.8, Sodium Level 141, Potassium Level 4.9, Chloride Level 104, Carbon Dioxide Level 35H, Anion Gap 2L, Blood Urea Nitrogen 11, Creatinine 0.9, Estimat Glomerular Filtration Rate , Glucose Level 84, Calcium Level 9.6, Magnesium Level 2.1, Pro-B-Type Natriuretic Peptide 381H Current Medications Medications (Trade) Dose Ordered Sig/Kate Route PRN Reason Start Time Stop Time Status Last Admin Dose Admin Acetaminophen (Tylenol) 1,000 mg Q8H PRN ORAL For Pain 04/27/19 22:00 05/20/19 21:47 05/01/19 08:31 Artificial Tears (Akwa-Tears) 1 drop DAILY BOTH EYES 04/28/19 09:00 05/20/19 08:59 05/01/19 08:36 Atorvastatin Calcium (Lipitor) 10 mg BEDTIME ORAL 04/27/19 21:00 05/19/19 20:59 04/30/19 20:36 Beclomethasone Dipropionate (Qvar 40 Inhaler) 2 puff TWICE A DAY INH 04/28/19 09:00 05/19/19 20:59 05/01/19 10:00 Bisacodyl (Dulcolax) 10 mg DAILYPRN PRN RECTAL Constipation 04/30/19 16:45 05/30/19 16:44 Dextrose (Dextrose 50%) 25 ml Q30M PRN IV Hypoglycemia 04/27/19 20:45 05/19/19 15:44 Dextrose (Dextrose 50%) 50 ml Q30M PRN IV Hypoglycemia 04/27/19 20:45 05/19/19 15:44 Docusate Sodium (Colace) 100 mg TWICE A DAY ORAL 04/28/19 09:00 05/20/19 08:59 04/30/19 09:11 Escitalopram Oxalate (Lexapro) 5 mg DAILY ORAL 04/28/19 09:00 05/20/19 08:59 05/01/19 08:32 Furosemide (Lasix) 40 mg DAILY ORAL 05/01/19 09:00 05/31/19 08:59 05/01/19 08:32 Magnesium Hydroxide (Mom) 30 ml Q8H PRN ORAL Constipation 04/27/19 22:00 05/20/19 21:48 Meropenem 1 gm/ Sodium Chloride 55 ml @ 110 mls/hr Q12HR IVPB 04/28/19 21:00 05/01/19 22:00 05/01/19 09:00 Metoprolol Tartrate (Lopressor) 25 mg Q12HR ORAL 04/27/19 21:00 05/19/19 20:59 05/01/19 08:37 Pantoprazole (Protonix) 40 mg DAILY ORAL 04/28/19 09:00 05/20/19 08:59 05/01/19 08:32 Polyethylene Glycol (Miralax) 17 gm Q8H PRN ORAL Constipation 04/27/19 22:00 05/20/19 21:48 Potassium Chloride (K-Dur) 40 meq TWICE A DAY ORAL 04/28/19 09:00 05/21/19 08:59 05/01/19 08:32 Sennosides (Senokot) 8.6 mg DAILY ORAL 04/28/19 09:00 05/20/19 08:59 04/30/19 09:11 Sodium Phosphate (Fleet's Sodium Phosl Enema) 133 ml DAILY RECTAL 04/30/19 16:45 05/30/19 16:44 Raymond Florian MD May 01, 2019 12:04
--- NOTE | 2019-05-01 14:49 | NUR ---
CASE MANAGEMENT: REVIEW 05/01/2019 SI:SEVERE SEPSIS. T 98.9 HR 73 RR 20 B/P 97/59 SATS 98% ON 2L/NC WBC 15.4 CO2 35 BNP 381 IS:KDUR PO BID LIPITOR PO QHS LEXAPRO PO QD PROTONIX PO QD LOPRESSOR PO QD LASIX PO QD MEROPENEM IV Q12H MED/SURG
[2019-05-01 16:00] VITALS: BP 95/54
--- NOTE | 2019-05-01 17:57 | NUR ---
HAULING CONTRACTOR NOTES RECIEVED DISCHARGE ORDER, SPOKE WITH [facility] INS[facility] MULTIFOCAL LENS, ADMISSIONS CLOSED FOR TODAY UNABLE TO PROVIDE A BED AT THIS TIME. WILL FOLLOW UP IN AM.
--- NOTE | 2019-05-01 19:34 | NUR ---
HAND-OFF: Report given to CAL HARRIS.
--- NOTE | 2019-05-01 19:45 | NUR ---
NURSE NOTES: Received report from STEVEN Oconnor. Patient a/a/o x 4, breathing unlabored without distress, discomfort, or sob on 2L O2 via NC. Denies pain at this time. IV noted on the right hand intact and patent. Bed placed at the lowest with alarm, brake, and siderails up for safety. Call light placed within reach. Will continue to monitor and provide care as ordered.
[2019-05-01 20:00] VITALS: BP 101/58
[2019-05-02] VITALS: BP 100/54
[2019-05-02 04:00] VITALS: BP 108/61
--- NOTE | 2019-05-02 05:30 | Progress Note ---
DATE: 05/01/2019 CARDIOLOGY PROGRESS NOTE SUBJECTIVE: The patient still has some congestion, but denies chest pain or palpitations. Monitored rhythm, predominantly sinus now. OBJECTIVE: VITAL SIGNS: Blood pressure 104/60, pulse 83, and respirations 20. LUNGS: Few rhonchi. No wheezing. HEART: Regular rhythm and rate. Normal S1, S2 with a 1/6 systolic apical murmur. ABDOMEN: Soft. EXTREMITIES: No edema. LABORATORY DATA: White count 15.4 and hemoglobin 9.9. Magnesium 2.1. Potassium 4.9. Pro-natriuretic peptide 381. IMPRESSION: 1. Leukocytosis, source unclear. 2. Chronic obstructive pulmonary disease with no active bronchospasm. 3. Acute on chronic diastolic congestive heart failure, now clinically compensated. 4. Status post sepsis with shock. 5. Status post acute myocardial infarction. PLAN: 1. CT of the chest per profile grinder. 2. Maintain current cardiovascular regimen. 3. Diuretics have been on hold and can remain on hold at this time. Jan Moreno M.D. DR: MINA JOB#: [id number] CC:
--- NOTE | 2019-05-02 06:00 | Discharge Summary ---
DATE OF ADMISSION: 04/19/2019 DATE OF DISCHARGE: 05/02/2019 PERTINENT HISTORY: The patient has a long history of chronic obstructive pulmonary disease, congestive heart failure, CO2 retention, prior CVA, paroxysmal atrial fibrillation, and anemia. She presents with fever over 102 and hypotension. PERTINENT PHYSICAL FINDINGS: See the dictated History and Physical. LUNGS: Showed few rhonchi. HEART: Regular rhythm. ABDOMEN: Soft. EXTREMITIES: No edema. There are degenerative changes in the knees. NEUROLOGIC: She is alert. There is a mild right-sided weakness. COURSE IN THE HOSPITAL: The patient presented with clinical sepsis, pyelonephritis, UTI, and she was found to have ESBL in the urine. She had chronic obstructive pulmonary disease with initial distress, which improved. The patient was continued on medicines for chronic congestive heart failure. Antibiotic was switched to meropenem and she completed a course in the hospital. She had persistent leukocytosis and no further fevers. A CT abdomen and pelvis was unremarkable and a renal scan was done, which showed an incidental bilateral renal cysts in no hydronephrosis or mass lesions. The patient felt better on discharge. She was alert and responsive. Tolerating a diet. Lungs, clear. Heart, regular rhythm. Abdomen, soft. Extremities, no edema. Neurologic, unchanged and [facility]. FINAL DIAGNOSES: 1. Acute sepsis. 2. Pyelonephritis. 3. ESBL urinary tract infection and pyelonephritis. 4. Chronic obstructive pulmonary disease with exacerbation. 5. Acute on chronic respiratory failure with hypoxemia and hypercarbia. 6. Chronic diastolic and systolic congestive heart failure. 7. Paroxysmal atrial fibrillation. 8. History of prior cerebrovascular accident. 9. History of heme positive stools and iron deficiency anemia secondary to gastritis and anticoagulation and apixaban was discontinued. DISCHARGE DISPOSITION: Back to the [facility] on a low-salt diet. DISCHARGE MEDICATIONS: Per the discharge medication list. FOLLOWUP: Follow up by Dr. Bowen in the facility. Pastor Bowen M.D. DR: GABRIELA JOB#: [id number] CC: ONESIMO
[2019-05-02] MEDS: Acetaminophen 500mg (ES) tab ORAL PRN (06:29)
[2019-05-02 07:33] LABS: BASOPHILS % (AUTO) 1.1 % (0.0-2.0); HEMATOCRIT 33.5 % (37.0-47.0); LYMPHOCYTES % (AUTO) 19.1 % (20.0-45.0); MEAN CORPUSCULAR VOLUME 106 FL (80-99); MONOCYTES % (AUTO) 6.2 % (1.0-10.0); NEUTROPHILS % (AUTO) 71.6 % (45.0-75.0); PLATELET COUNT 585 K/UL (150-450); RED BLOOD COUNT 3.15 M/UL (4.20-5.40); RED CELL DISTRIBUTION WIDTH 16.8 % (11.6-14.8); WHITE BLOOD COUNT 12.4 K/UL (4.8-10.8)
[2019-05-02 07:51] LABS: ANION GAP 1 mmol/L (5-15); BLOOD UREA NITROGEN 16 mg/dL (7-18); CALCIUM 9.7 MG/DL (8.5-10.1); CARBON DIOXIDE 35 MMOL/L (21-32); CHLORIDE 107 MMOL/L (98-107); CREATININE 1.1 MG/DL (0.55-1.30); POTASSIUM 5.1 MMOL/L (3.5-5.1); SODIUM 143 MMOL/L (136-145)
--- NOTE | 2019-05-02 07:57 | NUR ---
HAND-OFF: Report given to STEVEN Tobar.
--- NOTE | 2019-05-02 07:59 | NUR ---
NURSE NOTES: Received patient on bed. IV line intact. With O2 via nasal cannula. No SOB of cardiac distress. Head of bed elevated. Bed locked in lowest position. Will continue plan of care.
[2019-05-02 08:00] VITALS: BP 108/59
[2019-05-02] MEDS: Docusate 100mg cap ORAL SCH ×2 (08:38→18:00)
[2019-05-02] MEDS: Sennosides 8.6mg tab ORAL SCH (08:38)
[2019-05-02] MEDS: Metoprolol 25mg tab ORAL SCH ×2 (08:39→20:46)
[2019-05-02] MEDS: Qvar 40mcg Inhaler 6.8 gm INH SCH ×2 (08:49→19:45)
[2019-05-02] MEDS: Fleet's Enema 133ml RECTAL SCH (09:00)
[2019-05-02] MEDS: Meropenem 1 GM in NS 55 ML IVPB SCH (09:36)
--- NOTE | 2019-05-02 11:29 | Pulmonology Progress Note ---
Assessment/Plan Assessment/Plan 1. COPD with respiratory failure, resolved 2. Sick sinus syndrome. 3. Septic shock due to UTI, resolved 4. CHF 5. Hypertension. 6. Hyperlipidemia. 7. CKD. 8. GERD. 9. History of prior GI bleed. Consider outpatient CT chest Observe off abx per ID Aspiration precautions Dispo planning back to SNF Subjective Allergies: Coded Allergies: No Known Allergies (Unverified , 06/05/14) Subjective AFVSS O2 needs stable No cough no SOB no FC CT chest not done WCT better Objective Last 24 Hour Vital Signs Date Time Temp Pulse Resp B/P (MAP) Pulse Ox O2 Delivery O2 Flow Rate FiO2 05/02/19 08:49 98 Nasal Cannula 2.0 28 05/02/19 08:39 72 108/59 05/02/19 04:00 98.6 68 16 108/61 (77) 98 05/02/19 00:00 98.4 66 16 100/54 (69) 98 05/01/19 21:00 Nasal Cannula 2.0 05/01/19 21:00 70 101/55 05/01/19 20:02 98 Nasal Cannula 2.0 28 05/01/19 20:00 98.6 72 16 101/58 (72) 98 05/01/19 16:00 98.7 76 18 95/54 (68) 95 05/01/19 12:00 98.9 73 20 97/59 (72) 98 Intake and Output 05/01/19 05/02/19 19:00 07:00 Intake Total 800 ml 55 ml Output Total 400 ml Balance 800 ml -345 ml Intake Oral 800 ml IV Total 55 ml Output Urine Total 400 ml # Voids 6 # Bowel Movements 1 General Appearance: no acute distress, cachetic HEENT: normocephalic, atraumatic, anicteric, mucous membranes moist Respiratory/Chest: chest wall non-tender, lungs clear, normal breath sounds, no respiratory distress Cardiovascular: normal peripheral pulses, normal rate, regular rhythm Abdomen: normal bowel sounds, soft, non tender, no organomegaly, non distended , no mass Extremities: no cyanosis, no clubbing, no edema Laboratory Tests 05/02/19 06:30: White Blood Count 12.4H, Red Blood Count 3.15L, Hemoglobin 10.0L, Hematocrit 33.5L, Mean Corpuscular Volume 106H, Mean Corpuscular Hemoglobin 31.7H, Mean Corpuscular Hemoglobin Concent 29.8L, Red Cell Distribution Width 16.8H, Platelet Count 585H, Mean Platelet Volume 4.6L, Neutrophils (%) (Auto) 71.6, Lymphocytes (%) (Auto) 19.1L, Monocytes (%) (Auto) 6.2, Eosinophils (%) (Auto) 2.0, Basophils (%) (Auto) 1.1, Sodium Level 143, Potassium Level 5.1, Chloride Level 107, Carbon Dioxide Level 35H, Anion Gap 1L, Blood Urea Nitrogen 16, Creatinine 1.1, Estimat Glomerular Filtration Rate , Glucose Level 86, Calcium Level 9.7 Current Medications Medications (Trade) Dose Ordered Sig/Kate Route PRN Reason Start Time Stop Time Status Last Admin Dose Admin Acetaminophen (Tylenol) 1,000 mg Q8H PRN ORAL For Pain 04/27/19 22:00 05/20/19 21:47 05/02/19 06:29 Artificial Tears (Akwa-Tears) 1 drop DAILY BOTH EYES 04/28/19 09:00 05/20/19 08:59 05/02/19 08:36 Atorvastatin Calcium (Lipitor) 10 mg BEDTIME ORAL 04/27/19 21:00 05/19/19 20:59 05/01/19 22:02 Beclomethasone Dipropionate (Qvar 40 Inhaler) 2 puff TWICE A DAY INH 04/28/19 09:00 05/19/19 20:59 05/02/19 08:49 Bisacodyl (Dulcolax) 10 mg DAILYPRN PRN RECTAL Constipation 04/30/19 16:45 05/30/19 16:44 Dextrose (Dextrose 50%) 25 ml Q30M PRN IV Hypoglycemia 04/27/19 20:45 05/19/19 15:44 Dextrose (Dextrose 50%) 50 ml Q30M PRN IV Hypoglycemia 04/27/19 20:45 05/19/19 15:44 Docusate Sodium (Colace) 100 mg TWICE A DAY ORAL 04/28/19 09:00 05/20/19 08:59 05/02/19 08:38 Escitalopram Oxalate (Lexapro) 5 mg DAILY ORAL 04/28/19 09:00 05/20/19 08:59 05/02/19 08:37 Furosemide (Lasix) 40 mg DAILY ORAL 05/03/19 09:00 06/02/19 08:59 Magnesium Hydroxide (Mom) 30 ml Q8H PRN ORAL Constipation 04/27/19 22:00 05/20/19 21:48 Meropenem 1 gm/ Sodium Chloride 55 ml @ 110 mls/hr Q12HR IVPB 05/01/19 21:00 05/04/19 22:00 05/02/19 09:36 Metoprolol Tartrate (Lopressor) 25 mg Q12HR ORAL 04/27/19 21:00 05/19/19 20:59 05/01/19 08:37 Pantoprazole (Protonix) 40 mg DAILY ORAL 04/28/19 09:00 05/20/19 08:59 05/02/19 08:36 Polyethylene Glycol (Miralax) 17 gm Q8H PRN ORAL Constipation 04/27/19 22:00 05/20/19 21:48 Potassium Chloride (K-Dur) 40 meq TWICE A DAY ORAL 04/28/19 09:00 05/21/19 08:59 05/02/19 08:37 Sennosides (Senokot) 8.6 mg DAILY ORAL 04/28/19 09:00 05/20/19 08:59 05/02/19 08:38 Sodium Phosphate (Fleet's Sodium Phosl Enema) 133 ml DAILY RECTAL 04/30/19 16:45 05/30/19 16:44 Raymond Florian MD May 02, 2019 11:29
[2019-05-02 12:00] VITALS: BP 100/53
--- NOTE | 2019-05-02 12:53 | General Progress Note ---
Assessment/Plan Problem List: (1) Sepsis ICD Codes: A41.9 - Sepsis SNOMED: 13057807 (2) COPD (chronic obstructive pulmonary disease) ICD Codes: J44.9 - Chronic obstructive pulmonary disease, unspecified SNOMED: 69945622 (3) Episode of generalized weakness ICD Codes: R53.1 - Weakness SNOMED: 42626678 (4) Paroxysmal A-fib ICD Codes: I48.0 - Paroxysmal atrial fibrillation SNOMED: 191732609 (5) Hypotension ICD Codes: I95.9 - Hypotension, unspecified SNOMED: 29214901 (6) CHF (congestive heart failure) ICD Codes: I50.9 - Heart failure, unspecified SNOMED: 40160082 (7) Myocardial infarct ICD Codes: I21.3 - ST elevation (STEMI) myocardial infarction of unspecified site SNOMED: 68196979 (8) Cerebral vascular accident ICD Codes: I63.9 - Cerebral infarction, unspecified SNOMED: 366190534 (9) Urinary tract infection ICD Codes: N39.0 - Urinary tract infection, site not specified SNOMED: 37617005 (10) Respiratory acidosis ICD Codes: E87.2 - Acidosis SNOMED: 89662093 (11) Upper GI bleed ICD Codes: K92.2 - Gastrointestinal hemorrhage, unspecified SNOMED: 05923186 Assessment/Plan: improved, start diet, dc iv fluids, continue antibiotics, +esbl, ID to see, meropenam orders updated,,mobilize, heme+stool stop eliquis, recent egd gastritis and colon only small polyps, wbc still high check renal US--only cyst , CT no abscess, fecal impact but had bm patient was seen on 1013 and 1014 discharge was ordered but we are awaiting acceptance by the senior care facility Subjective Constitutional: Reports: weakness HEENT: Reports: no symptoms Respiratory: Reports: SOB with excertion Gastrointestinal/Abdominal: Reports: no symptoms Genitourinary: Reports: incontinence Neurologic/Psychiatric: Reports: pre-existing deficit Endocrine: Reports: no symptoms Hematologic/Lymphatic: Reports: anemia Allergies: Coded Allergies: No Known Allergies (Unverified , 06/05/14) Objective Last 24 Hour Vital Signs Date Time Temp Pulse Resp B/P (MAP) Pulse Ox O2 Delivery O2 Flow Rate FiO2 05/02/19 08:49 98 Nasal Cannula 2.0 28 05/02/19 08:39 72 108/59 05/02/19 08:00 98.8 72 17 108/59 (75) 99 05/02/19 04:00 98.6 68 16 108/61 (77) 98 05/02/19 00:00 98.4 66 16 100/54 (69) 98 05/01/19 21:00 Nasal Cannula 2.0 05/01/19 21:00 70 101/55 05/01/19 20:02 98 Nasal Cannula 2.0 28 05/01/19 20:00 98.6 72 16 101/58 (72) 98 05/01/19 16:00 98.7 76 18 95/54 (68) 95 Intake and Output 05/01/19 05/02/19 19:00 07:00 Intake Total 800 ml 55 ml Output Total 400 ml Balance 800 ml -345 ml Intake Oral 800 ml IV Total 55 ml Output Urine Total 400 ml # Voids 6 # Bowel Movements 1 Laboratory Tests 05/02/19 06:30: White Blood Count 12.4H, Red Blood Count 3.15L, Hemoglobin 10.0L, Hematocrit 33.5L, Mean Corpuscular Volume 106H, Mean Corpuscular Hemoglobin 31.7H, Mean Corpuscular Hemoglobin Concent 29.8L, Red Cell Distribution Width 16.8H, Platelet Count 585H, Mean Platelet Volume 4.6L, Neutrophils (%) (Auto) 71.6, Lymphocytes (%) (Auto) 19.1L, Monocytes (%) (Auto) 6.2, Eosinophils (%) (Auto) 2.0, Basophils (%) (Auto) 1.1, Sodium Level 143, Potassium Level 5.1, Chloride Level 107, Carbon Dioxide Level 35H, Anion Gap 1L, Blood Urea Nitrogen 16, Creatinine 1.1, Estimat Glomerular Filtration Rate , Glucose Level 86, Calcium Level 9.7 Height (Feet): 5 Height (Inches): 5.00 Weight (Pounds): 148 General Appearance: no apparent distress, alert EENT: normal ENT inspection Neck: normal alignment, supple Cardiovascular: normal rate, regular rhythm Respiratory/Chest: decreased breath sounds Abdomen: non tender Edema: no edema noted Arm (L), no edema noted Arm (R), no edema noted Leg (L), no edema noted Leg (R), no edema noted Pedal (L), no edema noted Pedal (R), no edema noted Generalized Neurologic: motor weakness Pastor Bowen MD May 02, 2019 12:53
--- NOTE | 2019-05-02 14:30 | Infectious Diseases Prog Note ---
Assessment/Plan Assessment/Plan ASSESSMENT AND PLAN: 1. esbl e.coli uti/pyelonephritis, sepsis, ? pna, leukocytosis, fevers, elevated lactic acid - meropenem - s/p 10 days, finish course - CT without abscess - monitor labs and chest x-ray - clinically otherwise stable, c.diff. negative - stable ID standpoint, leukocytosis improved, no fevers, f/u cultures negative - d/w Dr. Bowen, Dr. 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 Hypertension. 3. Diabetes. 4. Dyslipidemia. 5. Blood sugar and blood pressure treatment for diabetes and hypertension per primary consultants. 6. Congestive heart failure. 7. Valvular heart disease. 8. Anemia. 9. Gastroesophageal reflux disease. 10. Chronic obstructive pulmonary disease. 11. Congestive heart failure. 12. Hypertensive heart disease. 13. Coronary arthrosclerosis. 14. Cerebrovascular accident with right hemiparesis. 15. Chronic kidney disease. 16. No known drug allergies. 17. Social history negative. 18. Family history noncontributory. 19. MAR is noted. 20. Case discussed with RN. 21. Continue treatment per primary consultants. 22. Notes and records were noted. 23. Orders were entered. 24. Past medical history is noted. Subjective Constitutional: Reports: fatigue; Denies: fever HEENT: Denies: congestion Respiratory: Denies: shortness of breath Cardiovascular: Denies: chest pain Gastrointestinal/Abdominal: Denies: nausea, vomiting, diarrhea Genitourinary: Reports: other - no hicks, no cva pain Neurologic: Denies: headache Psychiatric: Denies: depression Skin: Denies: rash Hematologic: Denies: bleeding Musculoskeletal: Denies: pain Allergies: Coded Allergies: No Known Allergies (Unverified , 06/05/14) Objective Vital Signs Last 24 Hour Vital Signs Date Time Temp Pulse Resp B/P (MAP) Pulse Ox O2 Delivery O2 Flow Rate FiO2 05/02/19 12:00 97.7 63 22 100/53 (69) 100 05/02/19 09:00 Nasal Cannula 2.0 05/02/19 08:49 98 Nasal Cannula 2.0 28 05/02/19 08:39 72 108/59 05/02/19 08:00 98.8 72 17 108/59 (75) 99 05/02/19 04:00 98.6 68 16 108/61 (77) 98 05/02/19 00:00 98.4 66 16 100/54 (69) 98 05/01/19 21:00 Nasal Cannula 2.0 05/01/19 21:00 70 101/55 05/01/19 20:02 98 Nasal Cannula 2.0 28 05/01/19 20:00 98.6 72 16 101/58 (72) 98 05/01/19 16:00 98.7 76 18 95/54 (68) 95 Height (Feet): 5 Height (Inches): 5.00 Weight (Pounds): 148 General Appearance: no acute distress HEENT: normocephalic, atraumatic, anicteric Respiratory/Chest: lungs clear, normal breath sounds, no respiratory distress, no accessory muscle use Cardiovascular: normal rate, regular rhythm, no gallop/murmur, no JVD Abdomen: normal bowel sounds, soft, non tender, no organomegaly, non distended Genitourinary: other - no hicks, no cva pain Extremities: no cyanosis Skin: no rash Neurologic/Psychiatric: stone polisher machine II-XII grossly normal, alert, oriented x 3, responsive Lymphatic: no neck adenopathy Musculoskeletal: no effusion Objective Chest x-ray - 04/25/19 - Comparison: 04/24/2019 Findings: Inspiration is less optimal. Right perihilar atelectasis or scarring is unchanged. Reticular interstitial opacities in the upper lungs are slightly more prominent than on the prior exam. The heart size is upper limits normal. The aorta is tortuous ectatic and calcified. There are degenerative changes of both shoulders Impression: Increasingly prominent bilateral upper lung reticular interstitial opacities. Suspected artifactual due to lower lung volumes resulting in crowding of the bronchovascular markings, but developing infiltrates also possible. Recommend follow-up radiographs Other stable findings as described CT abdomen and pelvis: IMPRESSION: 1. Bibasilar atelectasis. Bronchial wall thickening in the right lung base could represent bronchitis. 2. Moderate stool in the rectum may represent fecal impaction. 3. Mild prominence of the bladder wall is nonspecific. Please correlate with urinalysis to evaluate for cystitis. 4. No abscess identified. Microbiology Date/Time Source Procedure Growth Status 04/24/19 15:15 Blood Blood Culture - Final NO GROWTH AFTER 5 DAYS Complete 04/20/19 14:00 Sputum Gram Stain - Final Complete 04/20/19 14:00 Sputum Sputum Culture - Final NORMAL UPPER RESPIRATORY ALEXANDREA AT 48 ... Complete 04/24/19 23:25 Stool Clostridium difficile Toxin Assay - Final Complete 04/25/19 07:00 Urine,Clean Catch Urine Culture - Final NO GROWTH AFTER 48 HOURS Complete 04/19/19 11:30 Rectum VRE Culture - Final NO VANCOMYCIN RESISTANT ENTEROCOCCUS ... Complete Laboratory Tests Test 05/02/19 06:30 White Blood Count 12.4 K/UL (4.8-10.8) H Red Blood Count 3.15 M/UL (4.20-5.40) L Hemoglobin 10.0 G/DL (12.0-16.0) L Hematocrit 33.5 % (37.0-47.0) L Mean Corpuscular Volume 106 FL (80-99) H Mean Corpuscular Hemoglobin 31.7 PG (27.0-31.0) H Mean Corpuscular Hemoglobin Concent 29.8 G/DL (32.0-36.0) L Red Cell Distribution Width 16.8 % (11.6-14.8) H Platelet Count 585 K/UL (150-450) H Mean Platelet Volume 4.6 FL (6.5-10.1) L Neutrophils (%) (Auto) 71.6 % (45.0-75.0) Lymphocytes (%) (Auto) 19.1 % (20.0-45.0) L Monocytes (%) (Auto) 6.2 % (1.0-10.0) Eosinophils (%) (Auto) 2.0 % (0.0-3.0) Basophils (%) (Auto) 1.1 % (0.0-2.0) Sodium Level 143 MMOL/L (136-145) Potassium Level 5.1 MMOL/L (3.5-5.1) Chloride Level 107 MMOL/L (98-107) Carbon Dioxide Level 35 MMOL/L (21-32) H Anion Gap 1 mmol/L (5-15) L Blood Urea Nitrogen 16 mg/dL (7-18) Creatinine 1.1 MG/DL (0.55-1.30) Estimat Glomerular Filtration Rate mL/min (>60) Glucose Level 86 MG/DL (74-106) Calcium Level 9.7 MG/DL (8.5-10.1) Current Medications Medications (Trade) Dose Ordered Sig/Kate Route PRN Reason Start Time Stop Time Status Last Admin Dose Admin Acetaminophen (Tylenol) 1,000 mg Q8H PRN ORAL For Pain 04/27/19 22:00 05/20/19 21:47 05/02/19 06:29 Artificial Tears (Akwa-Tears) 1 drop DAILY BOTH EYES 04/28/19 09:00 05/20/19 08:59 05/02/19 08:36 Atorvastatin Calcium (Lipitor) 10 mg BEDTIME ORAL 04/27/19 21:00 05/19/19 20:59 05/01/19 22:02 Beclomethasone Dipropionate (Qvar 40 Inhaler) 2 puff TWICE A DAY INH 04/28/19 09:00 05/19/19 20:59 05/02/19 08:49 Bisacodyl (Dulcolax) 10 mg DAILYPRN PRN RECTAL Constipation 04/30/19 16:45 05/30/19 16:44 Dextrose (Dextrose 50%) 25 ml Q30M PRN IV Hypoglycemia 04/27/19 20:45 05/19/19 15:44 Dextrose (Dextrose 50%) 50 ml Q30M PRN IV Hypoglycemia 04/27/19 20:45 05/19/19 15:44 Docusate Sodium (Colace) 100 mg TWICE A DAY ORAL 04/28/19 09:00 05/20/19 08:59 05/02/19 08:38 Escitalopram Oxalate (Lexapro) 5 mg DAILY ORAL 04/28/19 09:00 05/20/19 08:59 05/02/19 08:37 Furosemide (Lasix) 40 mg DAILY ORAL 05/03/19 09:00 06/02/19 08:59 Magnesium Hydroxide (Mom) 30 ml Q8H PRN ORAL Constipation 04/27/19 22:00 05/20/19 21:48 Meropenem 1 gm/ Sodium Chloride 55 ml @ 110 mls/hr Q12HR IVPB 05/01/19 21:00 05/04/19 22:00 05/02/19 09:36 Metoprolol Tartrate (Lopressor) 25 mg Q12HR ORAL 04/27/19 21:00 05/19/19 20:59 05/01/19 08:37 Pantoprazole (Protonix) 40 mg DAILY ORAL 04/28/19 09:00 05/20/19 08:59 05/02/19 08:36 Polyethylene Glycol (Miralax) 17 gm Q8H PRN ORAL Constipation 04/27/19 22:00 05/20/19 21:48 Potassium Chloride (K-Dur) 40 meq TWICE A DAY ORAL 04/28/19 09:00 05/21/19 08:59 05/02/19 08:37 Sennosides (Senokot) 8.6 mg DAILY ORAL 04/28/19 09:00 05/20/19 08:59 05/02/19 08:38 Sodium Phosphate (Fleet's Sodium Phosl Enema) 133 ml DAILY RECTAL 04/30/19 16:45 05/30/19 16:44 Jori Anaya MD May 02, 2019 14:30
[2019-05-02 16:00] VITALS: BP 93/58
--- NOTE | 2019-05-02 19:30 | NUR ---
HAND-OFF: Report given to Joby.
--- NOTE | 2019-05-02 19:56 | NUR ---
NURSE NOTES: Received patient awake in bed, able to verbalize needs, c/o 5/10 pain, will administer pain medication per MD order. IV access infiltrated, will insert new access. Bed low and locked, non-slip socks on.
--- NOTE | 2019-05-02 19:58 | NUR ---
NURSE NOTES: Patient is asleep. No s/s of distress. Side rails upx2, bed is locked, in lowest position, and call light is within reach. Yellow gown and yellow socks on.
[2019-05-02 20:46] VITALS: BP 104/67
--- NOTE | 2019-05-02 21:55 | NUR ---
NURSE NOTES: discharged to [facility] via ambulance. Patient belongings list checked, patient stated "I lost my cellphone, it got swept up in the laundry on wednesday". 2 RN and 3 EMT searched the room and could not find cellphone. IV access discontinued, hospital bracelet taken off. Patient VSS, calm and cooperative.
--- NOTE | 2019-05-02 21:58 | NUR ---
NURSE NOTES: [facility] aware of patient discharge to [facility]
--- NOTE | 2019-05-03 03:15 | Progress Note ---
DATE: 05/02/2019 CARDIOLOGY PROGRESS NOTE SUBJECTIVE: The patient without shortness of breath. CAT scan of the chest pending. White blood cell count slowly improved. Monitored rhythm, sinus. No recurring atrial fibrillation. OBJECTIVE: VITAL SIGNS: Blood pressure 108/61, pulse 68, and respirations 16. LUNGS: Good breath sounds. HEART: Regular rhythm and rate. Normal S1, S2. ABDOMEN: Soft. EXTREMITIES: No edema. LABORATORY DATA: White count 12.4 and hemoglobin 10. Potassium 5.1, bicarb 35, BUN 16, and creatinine 1.1. PLAN: 1. Stable for outpatient followup from cardiovascular standpoint. 2. Maintenance dose diuretic at this time likely 40 mg furosemide daily, which will require titration based on close monitoring of clinical parameters, volume status, and natriuretic peptide assays as an outpatient. 3. Outpatient followup will be offered. Jan Moreno M.D. DR: MINA JOB#: [id number] CC:
[2019-05-03] MEDS ORDERED: Furosemide 40mg tab ORAL SCH (09:00)
== END 2019-05-02 21:55 | DRG 871 ==
LOC: EDBD 10:50 → EMR 11:10 → ICU 12:25 → EDBEDREQ 13:58 → 2E 04-20 21:28 → 4E 04-27 20:05
PROC: 5A09457 Assistance with Respiratory Ventilation, 24-96 Consecutive Hours, Continuous Positive Airway Pressure (ICD-10-PCS; principal; 2019-04-19)
DX: A41.9 Sepsis, unspecified organism (principal); R65.21 Severe sepsis with septic shock; J96.22 Acute and chronic respiratory failure with hypercapnia; J96.21 Acute and chronic respiratory failure with hypoxia; I21.4 Non-ST elevation (NSTEMI) myocardial infarction; N39.0 Urinary tract infection, site not specified; J44.1 Chronic obstructive pulmonary disease with (acute) exacerbation; I50.42 Chronic combined systolic (congestive) and diastolic (congestive) heart failure; N12 Tubulo-interstitial nephritis, not specified as acute or chronic; I69.951 Hemiplegia and hemiparesis following unspecified cerebrovascular disease affecting right dominant side; I13.0 Hypertensive heart and chronic kidney disease with heart failure and stage 1 through stage 4 chronic kidney disease, or unspecified chronic kidney disease; I48.0 Paroxysmal atrial fibrillation; I49.5 Sick sinus syndrome; E11.22 Type 2 diabetes mellitus with diabetic chronic kidney disease; N18.9 Chronic kidney disease, unspecified; E11.21 Type 2 diabetes mellitus with diabetic nephropathy; F03.90 Unspecified dementia, unspecified severity, without behavioral disturbance, psychotic disturbance, mood disturbance, and anxiety; E78.5 Hyperlipidemia, unspecified; I25.10 Atherosclerotic heart disease of native coronary artery without angina pectoris; I27.20 Pulmonary hypertension, unspecified; K21.9 Gastro-esophageal reflux disease without esophagitis; R19.5 Other fecal abnormalities; E83.42 Hypomagnesemia; K56.41 Fecal impaction; D50.9 Iron deficiency anemia, unspecified
CPT/HCPCS: 36415; 36600; 71045; 74177; 76770; 80048; 80053; 80202; 81001; 81003; 82270; 82550; 82553; 82728; 82803; 83540; 83550; 83605; 83735; 83880; 84100; 84484; 85007; 85025; 86850; 86900; 86901; 87040; 87070; 87081; 87086; 87181; 87205; 87324; 93005; 93306; 94640; 94660; 94664; 96365; 96366; 96367; 96368; 99291; J7620; J8499